=== PATIENT | female | born 1960 | race Caucasian/White ===

== ENCOUNTER 2016-07-16 13:53 | Inpatient (IN) | payer OTHER ==
[2016-07-16] MEDS ORDERED: MAGNESIUM SULFATE-D5W PMX 1 GM in DEXTROSE/WATER 1 100ML.BAG IVPB STA (14:51)
[2016-07-16] MEDS ORDERED: IPRATROPIUM-ALBUTEROL 3 ML NEB INHALATION STA (14:51)
[2016-07-16] MEDS ORDERED: SODIUM CHLORIDE 0.9% 1,000 ML IV STA (14:51)
--- NOTE | 2016-07-16 14:55 | ED ---
SOB HPI - General Chief Complaint: Shortness of Breath Stated Complaint: KRISTA Time Seen by Provider: 07/16/16 14:45 Source: patient, family, RN notes reviewed Mode of arrival: wheelchair Limitations: no limitations - History of Present Illness Initial Comments: This is a 55-year-old female with a history of COPD who is still smoking though she states she is trying to stop who has had difficulty with breathing for well over a week with cough with green phlegm fevers chills and sweats. She was seen in the outpatient clinic today and told come here for evaluation. She was told she probably will be admitted she does states she was given a shot of antibiotics and steroids prior to her discharge from the clinic. She denies any chest pain is no other complaints at this time. MD Complaint: shortness of breath, cough - Related Data Home Medications Medication Instructions Recorded Confirmed Albuterol Nebulized [Ventolin 2.5 mg INHALATION RT-Q6H PRN 09/15/14 07/16/16 Nebulized] Budesonide/Formoterol Fumarate 2 puff INHALATION RT-BID PRN 09/15/14 07/16/16 [Symbicort 80-4.5 Mcg Inhaler] Calcium Carb-Vit D 500Mg-200Un 1 tab PO DAILY 09/15/14 07/16/16 [Oscal 500+D] Cholecalciferol [Vitamin D3] 2,000 unit PO DAILY 09/15/14 07/16/16 Ezetimibe/Simvastatin [Vytorin 1 tab PO HS 09/15/14 07/16/16 10-10 mg Tablet] HYDROcodone/APAP 7.5-325MG [[place] 1 tab PO Q4H PRN 09/15/14 07/16/16 7.5-325] Multivitamins, Thera [Multivitamin] 1 tab PO DAILY@1200 09/15/14 07/16/16 Venlafaxine HCl [Effexor] 150 mg PO BID 09/15/14 07/16/16 Butalb/Acetaminophen/Caffeine 1 - 2 cap PO Q4HR PRN 07/19/15 07/16/16 [Fioricet 50-300-40 mg Capsule] Topiramate [Topamax] 50 mg PO BID 07/19/15 07/16/16 Albuterol Inhaler [Ventolin Hfa 1 - 2 puff INHALATION RT-Q6H PRN 10/21/15 Inhaler] Dicyclomine [Bentyl] 20 mg PO QID PRN 10/21/15 07/16/16 Allergies Allergy/AdvReac Type Severity Reaction Status Date / Time No Known Allergies Allergy Verified 07/16/16 15:09 Review of Systems ROS Statement: Those systems with pertinent positive or pertinent negative responses have been documented in the HPI. ROS Other: All systems not noted in ROS Statement are negative. Past Medical History Past Medical History: Asthma, COPD, Hyperlipidemia Additional Past Medical History / Comment(s): migraines, colon cancer, depression History of Any Multi-Drug Resistant Organisms: None Reported Past Surgical History: Appendectomy, Bowel Resection, Cholecystectomy, Hernia Repair, Tonsillectomy Additional Past Surgical History / Comment(s): re-hernia repair Past Psychological History: Anxiety, Depression Smoking Status: Current every day smoker Past Alcohol Use History: Rare Past Drug Use History: None Reported - Past Family History Mother Family Medical History: No Reported History Father Family Medical History: COPD, Coronary Artery Disease (CAD) General Exam - General Exam Comments Initial Comments: This is a well-developed well-nourished awake alert oriented 3 female Limitations: no limitations General appearance: alert, in no apparent distress Head exam: Present: atraumatic, normocephalic, normal inspection Eye exam: Present: normal appearance, PERRL, EOMI. Absent: scleral icterus, conjunctival injection, periorbital swelling ENT exam: Present: mucous membranes dry Neck exam: Present: normal inspection. Absent: tenderness, meningismus, lymphadenopathy Respiratory exam: Present: respiratory distress, wheezes, accessory muscle use, prolonged expiratory. Absent: rales, rhonchi, stridor Cardiovascular Exam: Present: normal rhythm, tachycardia, normal heart sounds. Absent: systolic murmur, diastolic murmur, rubs, gallop, clicks GI/Abdominal exam: Present: soft, normal bowel sounds. Absent: distended, tenderness, guarding, rebound, rigid Extremities exam: Present: normal inspection, full ROM, normal capillary refill. Absent: tenderness, pedal edema, joint swelling, calf tenderness Back exam: Present: normal inspection Neurological exam: Present: alert, oriented X3, CN II-XII intact Psychiatric exam: Present: normal affect, normal mood Skin exam: Present: warm, dry, intact, normal color. Absent: rash Course Vital Signs 07/16/16 07/16/16 07/16/16 14:34 15:24 15:35 Temperature 99 F Pulse Rate 111 H 114 H 100 Respiratory 22 Rate Blood Pressure 119/73 O2 Sat by Pulse 92 L Oximetry - Reevaluation(s) Reevaluation #1: 07/16/16 16:39 The patient did not get much improvement from the initial treatment. Medical Decision Making - Medical Decision Making Reevaluation patient reveals still marked dyspnea with diffuse wheezing and some accessory muscle use. I did discuss findings her family she will be admitted for inpatient treatment of COPD exacerbation with bronchitis. - Lab Data Result diagrams: 07/16/16 15:20 07/16/16 15:20 Lab Results 07/16/16 07/16/16 07/16/16 Range/Units 15:20 15:20 15:20 WBC 8.8 (3.8-10.6) k/uL RBC 4.86 (3.80-5.40) m/uL Hgb 14.1 (11.4-16.0) gm/dL Hct 42.6 (34.0-46.0) % MCV 87.7 (80.0-100.0) fL MCH 29.1 (25.0-35.0) pg MCHC 33.2 (31.0-37.0) g/dL RDW 13.3 (11.5-15.5) % Plt Count 282 (150-450) k/uL Neutrophils % 66 % Lymphocytes % 21 % Monocytes % 9 % Eosinophils % 1 % Basophils % 1 % Neutrophils # 5.8 (1.3-7.7) k/uL Lymphocytes # 1.9 (1.0-4.8) k/uL Monocytes # 0.8 (0-1.0) k/uL Eosinophils # 0.1 (0-0.7) k/uL Basophils # 0.0 (0-0.2) k/uL PT (9.0-12.0) sec INR (<1.1) APTT (22.0-30.0) sec D-Dimer (<0.60) mg/L FEU Sodium 141 (137-145) mmol/L Potassium 4.1 (3.5-5.1) mmol/L Chloride 101 (98-107) mmol/L Carbon Dioxide 27 (22-30) mmol/L Anion Gap 13 mmol/L BUN 10 (7-17) mg/dL Creatinine 0.74 (0.52-1.04) mg/dL Est GFR (MDRD) Af Amer >60 (>60 ml/min/1.73 sqM) Est GFR (MDRD) Non-Af >60 (>60 ml/min/1.73 sqM) Glucose 124 H (74-99) mg/dL Calcium 9.3 (8.4-10.2) mg/dL Magnesium 2.0 (1.6-2.3) mg/dL Total Bilirubin 0.4 (0.2-1.3) mg/dL AST 24 (14-36) U/L ALT 39 (9-52) U/L Alkaline Phosphatase 85 (38-126) U/L Total Creatine Kinase 58 (30-135) U/L CK-MB (CK-2) 0.9 (0.0-2.4) ng/mL CK-MB (CK-2) Rel Index 1.6 Troponin I <0.012 (0.000-0.034) ng/mL NT-Pro-B Natriuret Pep pg/mL Total Protein 7.0 (6.3-8.2) g/dL Albumin 4.0 (3.5-5.0) g/dL 07/16/16 07/16/16 Range/Units 15:20 15:20 WBC (3.8-10.6) k/uL RBC (3.80-5.40) m/uL Hgb (11.4-16.0) gm/dL Hct (34.0-46.0) % MCV (80.0-100.0) fL MCH (25.0-35.0) pg MCHC (31.0-37.0) g/dL RDW (11.5-15.5) % Plt Count (150-450) k/uL Neutrophils % % Lymphocytes % % Monocytes % % Eosinophils % % Basophils % % Neutrophils # (1.3-7.7) k/uL Lymphocytes # (1.0-4.8) k/uL Monocytes # (0-1.0) k/uL Eosinophils # (0-0.7) k/uL Basophils # (0-0.2) k/uL PT 10.1 (9.0-12.0) sec INR 1.0 (<1.1) APTT 25.4 (22.0-30.0) sec D-Dimer 0.75 H (<0.60) mg/L FEU Sodium (137-145) mmol/L Potassium (3.5-5.1) mmol/L Chloride (98-107) mmol/L Carbon Dioxide (22-30) mmol/L Anion Gap mmol/L BUN (7-17) mg/dL Creatinine (0.52-1.04) mg/dL Est GFR (MDRD) Af Amer (>60 ml/min/1.73 sqM) Est GFR (MDRD) Non-Af (>60 ml/min/1.73 sqM) Glucose (74-99) mg/dL Calcium (8.4-10.2) mg/dL Magnesium (1.6-2.3) mg/dL Total Bilirubin (0.2-1.3) mg/dL AST (14-36) U/L ALT (9-52) U/L Alkaline Phosphatase (38-126) U/L Total Creatine Kinase (30-135) U/L CK-MB (CK-2) (0.0-2.4) ng/mL CK-MB (CK-2) Rel Index Troponin I (0.000-0.034) ng/mL NT-Pro-B Natriuret Pep 51 pg/mL Total Protein (6.3-8.2) g/dL Albumin (3.5-5.0) g/dL - EKG Data -: EKG Interpreted by Wy EKG shows normal: sinus rhythm (Sinus rhythm with a rate of 107 ND interval of 170 QRS duration 106 DT says QTC of 340/464 evidence a left exodeviation poor R- wave progression no acute ST-T wave changes.) - Radiology Data Radiology results: report reviewed (X-rays are nonspecific no acute evidence of infiltrate.), image reviewed Critical Care Time Critical Care Time: Yes Critical Care Time: 31 minutes of critical care time which includes initial assessment with history physical lab and x-rays evaluation of labs and x-rays. Evaluation the patient to responsive therapy. Discussion with the family discussion with the admitting physician and admission orders and documentation of the above. Disposition Clinical Impression: Acute exacerbation of chronic obstructive airways disease, Adult respiratory distress syndrome, Bronchitis Disposition: ADMITTED IP TO THIS HOSP Condition: Stable
[2016-07-16 15:38] LABS: Basophils % (A) 1 %; CH 29.3; CHCM 33.6; Eosinophils # (A) 0.1 k/uL (0-0.7); Eosinophils % (A) 1 %; HCT 42.6 % (34.0-46.0); HDW 2.76; HGB 14.1 gm/dL (11.4-16.0); Luc # (Auto) 0.18; Luc % (Auto) 2; Lymphocytes # (A) 1.9 k/uL (1.0-4.8); Lymphocytes % (A) 21 %; MCH 29.1 pg (25.0-35.0); MCHC 33.2 g/dL (31.0-37.0); MCV 87.7 fL (80.0-100.0); Mean Platelet Volume 7.6; Monocytes # (A) 0.8 k/uL (0-1.0); Monocytes % (A) 9 %; Neutrophils # (A) 5.8 k/uL (1.3-7.7); Neutrophils % (A) 66 %; RBC 4.86 m/uL (3.80-5.40); RDW 13.3 % (11.5-15.5); WBC 8.8 k/uL (3.8-10.6); WBC (Perox) 8.93
[2016-07-16 15:48] LABS: ALT 39 U/L (9-52); AST 24 U/L (14-36); Alkaline Phosphatase 85 U/L (38-126); Anion Gap 13 mmol/L; Blood Urea Nitrogen 10 mg/dL (7-17); Calcium 9.3 mg/dL (8.4-10.2); Carbon Dioxide 27 mmol/L (22-30); Chloride 101 mmol/L (98-107); Glucose 124 mg/dL (74-99); Non-African American GFR(MDRD) >60 (>60 ml/min/1.73 sqM); Potassium 4.1 mmol/L (3.5-5.1); Sodium 141 mmol/L (137-145); Total Bilirubin 0.4 mg/dL (0.2-1.3)
[2016-07-16 15:51] LABS: Partial Thromboplastin Time 25.4 sec (22.0-30.0); Prothrombin Time 10.1 sec (9.0-12.0)
[2016-07-16 15:52] LABS: Creatine Kinase 58 U/L (30-135)
[2016-07-16 16:04] LABS: Creatine Kinase MB 0.9 ng/mL (0.0-2.4); Troponin I <0.012 ng/mL (0.000-0.034)
--- NOTE | 2016-07-16 16:11 | XR ---
EXAMINATION TYPE: XR chest 2V DATE OF EXAM: 07/16/2016 4:04 PM COMPARISON: NONE INDICATION: Difficulty breathing COPD TECHNIQUE: Frontal and lateral views of the chest are obtained. FINDINGS: The heart size is normal. The pulmonary vasculature is normal. The lungs are clear. IMPRESSION: 1. No acute pulmonary process.
[2016-07-16] MEDS ORDERED: DICYCLOMINE 20 MG TAB PO PRN (16:45)
[2016-07-16] MEDS ORDERED: NICOTINE 14MG/24HR PATCH TRANSDERM STA (16:45)
[2016-07-16] MEDS: HYDROcodone/APAP 7.5-325MG 1 EACH TAB PO PRN ×2 (16:59→21:04)
[2016-07-16] MEDS: methylPREDNISolone SOD SUCCI 125 MG/2 ML VIAL IV SCH ×2 (18:48→23:24)
[2016-07-16] MEDS: SODIUM CHLORIDE 0.9% 1,000 ML IV SCH (18:48)
[2016-07-16] MEDS: IPRATROPIUM-ALBUTEROL 3 ML NEB INHALATION SCH (20:00)
[2016-07-16] MEDS ORDERED: TOPIRAMATE 25 MG TAB PO PRN (20:29)
[2016-07-16] MEDS ORDERED: TOPIRAMATE 25 MG TAB PO SCH (21:00)
[2016-07-16] MEDS: VENLAFAXINE HCL ER 150 MG CAP PO SCH (21:04)
[2016-07-16] MEDS: ATORVASTATIN 10 MG TAB PO SCH (21:05)
[2016-07-16] MEDS: EZETIMIBE 10 MG TAB PO SCH (21:05)
[2016-07-16] MEDS: ALPRAZolam 0.25 MG TAB PO PRN (23:25)
[2016-07-17] MEDS ORDERED: ONDANSETRON 4 MG/2 ML VIAL IVP PRN (01:58)
[2016-07-17] MEDS: IPRATROPIUM-ALBUTEROL 3 ML NEB INHALATION SCH ×7 (03:18→23:42)
[2016-07-17] MEDS ORDERED: BUTALB/APAP/CAFF 50-325-40MG TAB PO PRN (05:47)
[2016-07-17] MEDS: methylPREDNISolone SOD SUCCI 125 MG/2 ML VIAL IV SCH ×4 (05:54→23:48)
[2016-07-17] MEDS: SODIUM CHLORIDE 0.9% 1,000 ML IV SCH ×3 (05:57→22:45)
[2016-07-17] MEDS: BUTALB/APAP/CAFF 50-325-40MG TAB PO PRN (05:59)
[2016-07-17 07:45] LABS: Glucose,Whole Blood 216 mg/dL (75-99)
[2016-07-17] MEDS: VENLAFAXINE HCL ER 150 MG CAP PO SCH ×2 (08:15→20:15)
[2016-07-17] MEDS: INSULIN LISPRO (humaLOG) 300 UNIT/3 ML VIAL SQ SCH ×4 (08:15→21:07)
[2016-07-17] MEDS: LEVOFLOXACIN 500 MG TAB PO SCH (08:15)
[2016-07-17] MEDS: HYDROcodone/APAP 7.5-325MG 1 EACH TAB PO PRN ×3 (08:20→19:41)
[2016-07-17] MEDS: CHOLECALCIFEROL 1,000 UNIT TAB PO SCH (09:43)
[2016-07-17] MEDS: CALCIUM CARB-VIT D 500MG-200UN 1 EACH TAB PO SCH (09:43)
[2016-07-17] MEDS: NICOTINE 14MG/24HR PATCH TRANSDERM SCH (11:05)
[2016-07-17] MEDS: ENOXAPARIN 40 MG/0.4 ML SYRINGE SQ SCH (11:05)
[2016-07-17] MEDS: MULTIVITAMINS, THERA 1 EACH TAB PO SCH (11:06)
[2016-07-17 11:47] LABS: Glucose,Whole Blood 330 mg/dL (75-99)
[2016-07-17 12:11] LABS: Hemoglobin A1C 6.2 % (4.2-6.1)
[2016-07-17] MEDS: NICOTINE POLACRILEX 2 MG GUM BUCCAL SCH ×4 (13:16→23:48)
--- NOTE | 2016-07-17 13:35 | HP ---
DATE OF ADMISSION: 07/16/2016 PRESENTING COMPLAINT: Short of breath, wheezing. HISTORY OF PRESENTING COMPLAINT: A 55-year-old patient of Dr. Luque. Patient's chronic stable medical conditions include hyperlipidemia, depression. Patient has a known history of COPD. The patient continues to smoke. The patient about 3 weeks ago [address] to Dr[address] Luque for respiratory symptoms including cough, sputum, short of breath, wheezing. Given antibiotics, steroids. Got a shade better, but symptoms continued to get worse. Patient still got quite a bit of cough, shortness of breath, wheezing, yellow phlegm, fever, decreased appetite, run down, quite a bit short of breath, admitted for the same having failed outpatient treatment. REVIEW OF SYSTEMS: CONSTITUTIONAL: Weak and tired. HEENT: As above. RESPIRATORY: As above. CARDIOVASCULAR: None. GASTROINTESTINAL: None. GENITOURINARY: None. MUSCULOSKELETAL: None. DERMATOLOGICAL: None. HEMATOLOGIC: None. LYMPHATIC: None. PSYCHIATRY: Anxiety. NEUROLOGICAL: None. GASTROINTESTINAL: The patient also got abdominal mesh. Past medical history of COPD, hyperlipidemia, migraine, colon cancer, depression. PAST SURGICAL HISTORY: Appendectomy, bowel resection, cholecystectomy, hernia repair, tonsillectomy, hernia repair with a mesh for abdominal wall hernia. SOCIAL HISTORY: The patient still smokes about a half a pack a day. Lives with daughter. FAMILY HISTORY: Reviewed, noncontributory to presentation. HOME MEDICATIONS: 1. Xanax, 0.25 p.o. q.i.d. p.r.n. 2. Effexor XR 150 mg p.o. b.i.d. 3. Topamax 50 mg p.o. b.i.d. p.r.n. 4. Multivitamin 1 tablet p.o. daily at noon. 5. [place] 7.5 one tablet q.4 p.r.n. 6. Vytorin 10/10 one tablet p.o. q.h.s. 7. Vitamin D3, 2000 units p.o. daily. 8. Os-Fantasma with vitamin D 1 tablet p.o. daily. 9. Fioricet 1 to 2 capsules q.4 p.r.n. 10. Symbicort 80/4.5 two puffs b.i.d. p.r.n. 11. Ventolin 2.5nebulized q.6 p.r.n. 12. Albuterol HFA 1 to 2 q.6 p.r.n. ALLERGIES: None. On examination, temperature 99, pulse 111, respiration 22, blood pressure 119/73, pulse ox 92% on room air. GENERAL APPEARANCE: Well built, BMI of 35.1, sitting up, short of breath. EYES: Pupils equal. Conjunctivae normal. HEENT: External appearance of nose and ears normal. Oral cavity normal. NECK: JVD not raised. Mass not palpable. RESPIRATORY: Effort increased. LUNGS: Diminished breath sounds, ( ) expiration and wheezing. CARDIOVASCULAR: First and second sounds normal. No edema. ABDOMEN: Distended, soft. Liver and spleen not palpable. LYMPHATIC: No lymph nodes palpable in the neck and axillae. PSYCHIATRY: Alert and oriented x3. Mood and affect anxious appearing. NEUROLOGICAL: Pupils equal. Cranial nerves grossly intact. Power and sensation grossly intact. INVESTIGATIONS: White count 8.8, hemoglobin 14.1. Potassium 4.1. BUN and creatinine normal. Chest x-ray nil acute. ASSESSMENT: 1. Acute severe chronic obstructive pulmonary disease exacerbation in a current smoker along with acute tracheobronchitis. 2. Obesity, body mass index 35.1. 3. Chronic nicotine dependence in an active cigarette smoker. 4. Anxiety and depression, not otherwise specified. PLAN: Patient counseled extensively against smoking, put her on nicotine patch and nicotine gum. Nebulized bronchodilators, IV steroids and also add oral Levaquin. Patient will ( ) hospital for 48 hours.
[2016-07-17 17:14] LABS: Glucose,Whole Blood 164 mg/dL (75-99)
--- NOTE | 2016-07-17 18:34 | P.CNPUL ---
History of Present Illness Consult date: 07/17/16 Reason for consult: COPD History of present illness: 55-year-old female patient with known history of COPD maintained on Tudorza 400 g on admission twice a day and Symbicort on outpatient basis. Her disease estimated to be moderately severe in nature. The patient is still smoking cigarettes and she has unable to quit despite previous interventions at home. The patient came yesterday through the MRSA problem having increased shortness of breath. Apparently her condition has been gradually getting worse over the past 1 week. She started off having symptoms of URI and following that she started having increased cough chest congestion wheezing. Her cough is very vigorous and repeated. Unable to bring up much sputum. No hemoptysis. No pleurisy. She has bronchospastic and wheezy and short of breath even at rest and sometimes while doing minimal amount of activity. No change in mental status. No pleurisy. No angina. No swelling in lower extremities. No other complaints otherwise. The patient is currently being treated as an inpatient with a combination of local that the steroids and antibiotics. The chest x-ray shows no acute abnormalities and I do not appreciate any pneumonic process. Review of Systems Further review of system was done and the positive findings are almost above history of present illness Past Medical History Past Medical History: COPD, Hyperlipidemia Additional Past Medical History / Comment(s): COPD, migraines, colon cancer, depression History of Any Multi-Drug Resistant Organisms: None Reported Past Surgical History: Appendectomy, Bowel Resection, Cholecystectomy, Hernia Repair, Tonsillectomy Additional Past Surgical History / Comment(s): re-hernia repair Past Anesthesia/Blood Transfusion Reactions: No Reported Reaction Additional Past Anesthesia/Blood Transfusion Reaction / Comment(s): spinal anesthesia Past Psychological History: Anxiety, Depression Smoking Status: Current every day smoker Past Alcohol Use History: Rare Past Drug Use History: None Reported - Past Family History Mother Family Medical History: No Reported History Father Family Medical History: COPD, Coronary Artery Disease (CAD) Medications and Allergies Home Medications Medication Instructions Recorded Confirmed Type Albuterol Nebulized [Ventolin 2.5 mg INHALATION RT-Q6H PRN 09/15/14 07/16/16 History Nebulized] Budesonide/Formoterol Fumarate 2 puff INHALATION RT-BID PRN 09/15/14 07/16/16 History [Symbicort 80-4.5 Mcg Inhaler] Calcium Carb-Vit D 500Mg-200Un 1 tab PO DAILY 09/15/14 07/16/16 History [Oscal 500+D] Cholecalciferol [Vitamin D3] 2,000 unit PO DAILY 09/15/14 07/16/16 History Ezetimibe/Simvastatin [Vytorin 1 tab PO HS 09/15/14 07/16/16 History 10-10 mg Tablet] HYDROcodone/APAP 7.5-325MG [[place] 1 tab PO Q4H PRN 09/15/14 07/16/16 History 7.5-325] Multivitamins, Thera [Multivitamin] 1 tab PO DAILY@1200 09/15/14 07/16/16 History Butalb/Acetaminophen/Caffeine 1 - 2 cap PO Q4HR PRN 07/19/15 07/16/16 History [Fioricet 50-300-40 mg Capsule] Topiramate [Topamax] 50 mg PO BID PRN 07/19/15 07/16/16 History Albuterol Inhaler [Ventolin Hfa 1 - 2 puff INHALATION RT-Q6H PRN 10/21/15 History Inhaler] ALPRAZolam [Xanax] 0.25 mg PO QID PRN 07/16/16 07/16/16 History Venlafaxine HCl [Effexor XR] 150 mg PO BID 07/16/16 07/16/16 History Allergies Allergy/AdvReac Type Severity Reaction Status Date / Time No Known Allergies Allergy Verified 07/16/16 15:09 Physical Exam Vitals: Vital Signs Temp Pulse Pulse Pulse Resp BP BP 07/17/16 16:29 90 07/17/16 16:13 82 07/17/16 15:00 97.9 F 81 20 107/68 07/17/16 11:44 85 07/17/16 11:32 85 07/17/16 08:05 85 07/17/16 07:55 85 07/17/16 07:00 96.7 F L 77 20 96/60 07/17/16 03:34 84 07/17/16 03:30 104/62 07/17/16 03:18 84 07/17/16 00:56 94/52 07/17/16 00:08 76 07/17/16 00:00 80 07/16/16 23:00 97.0 F L 80 16 94/57 07/16/16 20:07 84 07/16/16 19:50 84 Pulse Ox 07/17/16 16:29 07/17/16 16:13 07/17/16 15:00 92 L 07/17/16 11:44 07/17/16 11:32 07/17/16 08:05 07/17/16 07:55 93 L 07/17/16 07:00 91 L 07/17/16 03:34 07/17/16 03:30 07/17/16 03:18 07/17/16 00:56 07/17/16 00:08 07/17/16 00:00 07/16/16 23:00 97 07/16/16 20:07 07/16/16 19:50 Intake and Output 07/17/16 07/17/16 07/17/16 06:59 14:59 22:59 Intake Total 480 360 Balance 480 360 Intake: Oral 480 360 Other: Voiding Method Toilet # Voids 1 3 Head exam was generally normal. There was no scleral icterus or corneal arcus. Mucous membranes were moist. My normal neck lungs sounds are diminished and there is diffuse extremity wheezes throughout the lung tovar bilaterally. There is prolongation of the expiratory phase of breathing.Cardiac exam revealed the PMI to be normally situated and sized. The rhythm was regular and no extrasystoles were noted during several minutes of auscultation. The first and second heart sounds were normal and physiologic splitting of the second heart sound was noted. There were no murmurs, rubs, clicks, or gallops.Abdominal exam revealed normal bowel sounds. The abdomen was soft, non- tender, and without masses, organomegaly, or appreciable enlargement of the abdominal aorta.Examination of the extremities revealed easily palpable radial, femoral and pedal pulses. There was no cyanosis, clubbing or edema. Results - Laboratory Findings CBC and BMP: 07/16/16 15:20 07/16/16 15:20 PT/INR, D-dimer PT 10.1 sec (9.0-12.0) 07/16/16 15:20 INR 1.0 (<1.1) 07/16/16 15:20 D-Dimer 0.75 mg/L FEU (<0.60) H 07/16/16 15:20 Abnormal lab findings: Abnormal Labs 07/17/16 07/17/16 07/17/16 07:16 11:38 17:10 POC Glucose (mg/dL) 216 H 330 H 164 H - Diagnostic Findings Chest x-ray: image reviewed Assessment and Plan Plan: Assessment 1 acute COPD exacerbation with secondary shortness of breath 2 nicotine addiction/smoking 3 obesity 4 depression 5 hyperlipidemia 6 remote history of colon cancer Plan We'll put the patient on albuterol and Atrovent about treatments 4 times a day [id number]. We'll put the patient IV Solu Medrol 60 every 6 hours. We' ll cover the patient empiric antibiotic coverage with Levaquin. Nicotine patch for symptoms of withdrawal. Robitussin-DM for cough. Smoking cessation counseling was done. We'll continue to follow.
[2016-07-17] MEDS: SYMBICORT 80-4.5 MCG INHALER INHALATION SCH (19:05)
[2016-07-17] MEDS: ATORVASTATIN 10 MG TAB PO SCH (20:15)
[2016-07-17] MEDS: EZETIMIBE 10 MG TAB PO SCH (20:15)
[2016-07-17] MEDS ORDERED: INFLUENZA VACCINE (3YR+) 60 MCG/0.5 ML SYRINGE IM ONE (20:39)
[2016-07-17 21:03] LABS: Glucose,Whole Blood 202 mg/dL (75-99)
[2016-07-17] MEDS: ALPRAZolam 0.25 MG TAB PO PRN (22:10)
[2016-07-18] MEDS: NICOTINE POLACRILEX 2 MG GUM BUCCAL SCH ×7 (00:03→23:40)
[2016-07-18] MEDS: IPRATROPIUM-ALBUTEROL 3 ML NEB INHALATION SCH ×6 (04:22→23:31)
[2016-07-18] MEDS: methylPREDNISolone SOD SUCCI 125 MG/2 ML VIAL IV SCH ×3 (05:33→17:02)
[2016-07-18 07:02] LABS: Glucose,Whole Blood 157 mg/dL (75-99)
[2016-07-18] MEDS: VENLAFAXINE HCL ER 150 MG CAP PO SCH ×2 (07:57→20:30)
[2016-07-18] MEDS: NICOTINE 14MG/24HR PATCH TRANSDERM SCH (07:57)
[2016-07-18] MEDS: INSULIN LISPRO (humaLOG) 300 UNIT/3 ML VIAL SQ SCH ×4 (07:57→20:30)
[2016-07-18] MEDS: CHOLECALCIFEROL 1,000 UNIT TAB PO SCH (07:57)
[2016-07-18] MEDS: SODIUM CHLORIDE 0.9% 1,000 ML IV SCH ×2 (07:57→11:01)
[2016-07-18] MEDS: CALCIUM CARB-VIT D 500MG-200UN 1 EACH TAB PO SCH (07:57)
[2016-07-18] MEDS: LEVOFLOXACIN 500 MG TAB PO SCH (07:57)
[2016-07-18] MEDS: HYDROcodone/APAP 7.5-325MG 1 EACH TAB PO PRN ×4 (08:00→23:40)
[2016-07-18] MEDS: ENOXAPARIN 40 MG/0.4 ML SYRINGE SQ SCH (08:29)
[2016-07-18] MEDS: SYMBICORT 80-4.5 MCG INHALER INHALATION SCH (09:26)
[2016-07-18] MEDS: MULTIVITAMINS, THERA 1 EACH TAB PO SCH (11:01)
[2016-07-18 12:07] LABS: Glucose,Whole Blood 160 mg/dL (75-99)
[2016-07-18] MEDS: guaiFENesin-DM 100-10MG/5ML 10 ML CUP PO PRN (14:33)
--- NOTE | 2016-07-18 16:38 | FL ---
EXAMINATION: Cervical and Thoracic Esophagram DATE OF EXAM: 07/18/2016 4:28 PM CLINICAL INDICATION: 55-year-old female sensation of food getting stuck in the upper chest for one mo nth. COMPARISON: None Total Fluoroscopy Time: 1.5 minutes. FINDINGS: The swallowing mechanism is normal and hypopharyngeal anatomy is preserved. The cervical and thoracic portions have a normal course and caliber. There is mild to moderate tertiary peristaltic contractions and blunting of the normal secondary stri pping waves. This results in prolonged pooling of contrast within the esophagus even in the upright p osition. The mucosa is normal and no persistent filling defect is encountered. There is a tiny sliding hiatal hernia. Gastroesophageal reflux could not be elicited during the cours e of the exam utilizing both Valsalva and positional maneuvers. IMPRESSION: 1. Prolonged pooling of contrast within the esophagus even when the patient is upright secondary to s ome disorganized peristalsis and blunting of the normal secondary stripping waves. Findings could ref lect early presbyesophagus. 2. No obstructing or other suspicious mucosal lesion. 3. Tiny sliding hiatal hernia.
--- NOTE | 2016-07-18 16:50 | P.PN ---
Subjective this is a very pleasant 55-year-old female patient who follows with Dr. Luque is her primary care physician. Carmencita follows in our office for severe chronic obstructive pulmonary disease. She has been maintained on Symbicort and 2 doors. She presented here on 07/16/2016. She had an acute found to have an acute exacerbation of her COPD. Unfortunate patient does continue to smoke.she is seen again today in follow-up. She is improved slightly today as compared to yesterday but still quite bronchospastic and wheezy. She is quite dyspneic on minimal exertion. She's been treated with combination of bronchodilators steroids and antibiotics. She is maintaining O2 saturations in the mid 90s on 2 L/m per nasal cannula. Currently afebrile. She did undergo appears well today which revealed prolonged pooling of contrast within the esophagus even when the patient is upright secondary to some disorganized peristalsis and blunting of the normal secondary stripping waves. Findings could reflect early presbyesophagus. Objective - Vital Signs Vital signs: Vital Signs Temp 97.1 F L 07/18/16 15:00 Pulse 94 07/18/16 16:28 Resp 18 07/18/16 15:00 BP 110/71 07/18/16 15:00 Pulse Ox 95 07/18/16 15:00 Intake & Output 07/17/16 07/18/16 07/18/16 18:59 06:59 18:59 Intake Total 840 1400 240 Balance 840 1400 240 Intake: Intake, IV Titration 1100 Amount Sodium Chloride 0.9% 1, 1100 000 ml @ 100 mls/hr IV . Q10H B[facility]SON Rx#:[id number] Oral 840 300 240 Other: Voiding Method Toilet Toilet Toilet # Voids 3 1 2 - Exam GENERAL EXAM: Alert, in no acute distress. HEAD: Normocephalic. EYES: Normal reaction of pupils, equal size. NOSE: Clear with pink turbinates. THROAT: No erythema or exudates. NECK: No masses, no JVD. CHEST: No chest wall deformity. LUNGS: Equal air entry with bilateral end expiratory wheeze. Diminished throughout. CVS: S1 and S2 normal with no audible mumurs, regular rhythm. ABDOMEN: No hepatosplenomegaly, normal bowel sounds, no guarding or rigidity. SPINE: No scoliosis or deformity SKIN: No rashes CENTRAL NERVOUS SYSTEM: No focal deficits, tone is normal in all 4 extremities. Extremities: There is no significant peripheral edema. No clubbing, no cyanosis. Peripheral pulses are intact. - Labs CBC & Chem 7: 07/16/16 15:20 07/16/16 15:20 Labs: Abnormal Lab Results - Last 24 Hours (Table) 07/17/16 07/17/16 07/18/16 Range/Units 17:10 20:59 07:00 POC Glucose (mg/dL) 164 H 202 H 157 H (75-99) mg/dL 07/18/16 Range/Units 12:05 POC Glucose (mg/dL) 160 H (75-99) mg/dL Assessment and Plan Plan: Impression: #1 Acute exacerbation of chronic obstructive pulmonary disease with secondary dyspnea. #2 Chronic and ongoing tobacco dependence. #3 Obesity. #4 Depression. #5 Hyperlipidemia. #6 Remote history of colon cancer. #7 Possible early presbyesophagus. Plan: The patient was seen and evaluated by Dr. Myles. She is still not quite back to her baseline. We'll continue with her DuoNeb inhalations every 4 hours. We'll add Brovana and Pulmicort inhalations twice a day. She remains on IV Cymetra 60 mg every 6 hours. She is on empiric antibiotics in the form of Levaquin. She continues with Robitussin-DM for cough as needed. She is again educated regarding the importance of complete smoking cessation. NicoDerm patch has been applied. We will increase her activity as tolerated. We'll continue to follow make further recommendations based on her clinical status.
[2016-07-18 17:07] LABS: Glucose,Whole Blood 128 mg/dL (75-99)
[2016-07-18] MEDS: methylPREDNISolone SOD SUCCI 40 MG/ML 1 ML VIAL IV SCH ×2 (17:25→23:40)
[2016-07-18] MEDS: THEOPHYLLINE 24 HOUR 200 MG CAP.ER.24H PO SCH (17:26)
--- NOTE | 2016-07-18 19:46 | PN ---
DATE OF SERVICE: 07/18/2016 PRESENTING COMPLAINT: Short of breath, wheezing. INTERVAL HISTORY: This patient presented with as a smoker with severe COPD exacerbation. Still wheezing. The patient also notices that sometimes would get stuck in the throat, especially solids she thinks and wants further testing. Patient is on nicotine supplements to keep her off smoking. Family at the bedside. Review of systems done for constitutional, cardiovascular, GI, pulmonary; relevant findings as above. Current medications include, IV Solu-Medrol, nebulized bronchodilator. On examination, temperature 97.1, pulse 84, respiration 18, blood pressure 110/71, pulse ox 95% on 2 liters. GENERAL APPEARANCE: Sitting up, wheezing. EYES: Pupils equal. Conjunctivae normal. NECK: JVD not raised. Mass not palpable. RESPIRATORY: Effort increased. LUNGS: Diminished breath sounds. Prolonged audible wheezing. CARDIOVASCULAR: First and second sounds normal. No edema. ABDOMEN: Soft, nontender. Liver and spleen not palpable. PSYCHIATRY: Alert and oriented times three. Mood and affect anxious appearing. Oral cavity no thrush noted. Accu-Cheks noted. ASSESSMENT: 1. Acute severe chronic obstructive pulmonary disease exacerbation in a smoker. 2. Acute tracheobronchitis, slow to respond. 3. Difficulty in swallowing, could be peristalsis problem. 4. Chronic nicotine dependence in an active cigarette smoker. 5. Anxiety, depression, not otherwise specified. PLAN: Patient is counseled yet again about smoking. We will order barium swallow and get gastroenterology opinion. Will add theophylline.
[2016-07-18] MEDS ORDERED: BUDESONIDE 0.5 MG/2 ML NEBU INHALATION SCH (20:00)
[2016-07-18] MEDS: BUDESONIDE 0.5 MG/2 ML NEBU INHALATION SCH (20:06)
[2016-07-18] MEDS: FORMOTEROL FUMARATE 20 MCG/2 ML NEBU INHALATION SCH (20:07)
[2016-07-18 20:26] LABS: Glucose,Whole Blood 248 mg/dL (75-99)
[2016-07-18] MEDS: EZETIMIBE 10 MG TAB PO SCH (20:30)
[2016-07-18] MEDS: ATORVASTATIN 10 MG TAB PO SCH (20:30)
[2016-07-18] MEDS: ALPRAZolam 0.25 MG TAB PO PRN (23:40)
[2016-07-19] MEDS ORDERED: MELATONIN 3 MG TABLET PO PRN (01:28)
[2016-07-19] MEDS: LORazepam 0.5 MG TAB PO PRN ×2 (02:09→21:23)
[2016-07-19] MEDS: NICOTINE POLACRILEX 2 MG GUM BUCCAL SCH ×6 (04:33→23:37)
[2016-07-19] MEDS: IPRATROPIUM-ALBUTEROL 3 ML NEB INHALATION SCH ×5 (04:46→20:19)
[2016-07-19 07:22] LABS: Glucose,Whole Blood 149 mg/dL (75-99)
[2016-07-19] MEDS: FORMOTEROL FUMARATE 20 MCG/2 ML NEBU INHALATION SCH ×2 (07:32→20:19)
[2016-07-19] MEDS: BUDESONIDE 0.5 MG/2 ML NEBU INHALATION SCH ×2 (07:32→20:19)
[2016-07-19] MEDS: NICOTINE 14MG/24HR PATCH TRANSDERM SCH (08:09)
[2016-07-19] MEDS: ALPRAZolam 0.25 MG TAB PO PRN (08:09)
[2016-07-19] MEDS: methylPREDNISolone SOD SUCCI 40 MG/ML 1 ML VIAL IV SCH ×3 (08:10→23:34)
[2016-07-19] MEDS: THEOPHYLLINE 24 HOUR 200 MG CAP.ER.24H PO SCH (08:10)
[2016-07-19] MEDS: ENOXAPARIN 40 MG/0.4 ML SYRINGE SQ SCH (08:10)
[2016-07-19] MEDS: CHOLECALCIFEROL 1,000 UNIT TAB PO SCH (08:11)
[2016-07-19] MEDS: CALCIUM CARB-VIT D 500MG-200UN 1 EACH TAB PO SCH (08:11)
[2016-07-19] MEDS: LEVOFLOXACIN 500 MG TAB PO SCH (08:11)
[2016-07-19] MEDS: INSULIN LISPRO (humaLOG) 300 UNIT/3 ML VIAL SQ SCH ×4 (08:11→21:23)
[2016-07-19] MEDS: VENLAFAXINE HCL ER 150 MG CAP PO SCH ×2 (08:12→21:23)
[2016-07-19] MEDS: HYDROcodone/APAP 7.5-325MG 1 EACH TAB PO PRN ×4 (08:17→21:24)
[2016-07-19 08:43] LABS: Basophils # (A) 0.1 k/uL (0-0.2); Basophils % (A) 0 %; CHCM 32.4; Eosinophils % (A) 0 %; HCT 39.1 % (34.0-46.0); HDW 2.71; HGB 12.4 gm/dL (11.4-16.0); Luc # (Auto) 0.14; Luc % (Auto) 1; Lymphocytes # (A) 2.1 k/uL (1.0-4.8); Lymphocytes % (A) 15 %; MCH 28.5 pg (25.0-35.0); MCHC 31.7 g/dL (31.0-37.0); MCV 89.9 fL (80.0-100.0); Mean Platelet Volume 7.7; Monocytes % (A) 7 %; Neutrophils # (A) 10.8 k/uL (1.3-7.7); Neutrophils % (A) 77 %; RBC 4.35 m/uL (3.80-5.40); RDW 13.5 % (11.5-15.5); WBC (Perox) 14.11
[2016-07-19 08:50] LABS: Anion Gap 8 mmol/L; Blood Urea Nitrogen 18 mg/dL (7-17); Carbon Dioxide 34 mmol/L (22-30); Chloride 100 mmol/L (98-107); Glucose 130 mg/dL (74-99); Non-African American GFR(MDRD) >60 (>60 ml/min/1.73 sqM); Sodium 142 mmol/L (137-145)
--- NOTE | 2016-07-19 11:00 | CONS ---
DATE OF CONSULTATION: 07/19/2016 REASON FOR CONSULTATION: Dysphagia. HISTORY OF PRESENT ILLNESS: The patient is a 55-year-old pleasant lady who was admitted to the hospital because of exacerbation of COPD. She presented with cough, worsening shortness of breath for 2 weeks prior to hospitalization. Lately her symptoms have been progressively getting worse and has become more purulent. She denies any chest pain. Since being in the hospital she has been complaining of dysphagia and hence, the patient had a barium esophagogram done, which showed evidence of presbyesophagus and hence we are consulted in regards to this issue. The patient states that she has been having intermittent dysphagia to solids for the last 2 months duration. She also has heartburn. She has occasional chest pain while she is eating, but she often has dysphagia with certain foods, mostly solids on an intermittent basis. She does not have any problems with liquids. She does complain of passive regurgitation. She has not been on acid reduction therapy on an outpatient basis. She denies any nausea, vomiting, or abdominal pain. PAST MEDICAL HISTORY: Significant for COPD, hyperlipidemia, chronic migraines, hypertension, anxiety, depression. PAST SURGICAL HISTORY: Colon cancer surgery, cholecystectomy, appendectomy, hernia repair, tonsillectomy. Medications at home include Ventolin, vitamin D3, Vytorin, [place], multivitamin, Topamax, Xanax, Effexor. SOCIAL HISTORY: Chronic smoker, quit recently. No alcohol use. FAMILY HISTORY: Unremarkable. REVIEW OF SYSTEMS: CARDIOPULMONARY: She does complain of coughing and shortness of breath, but no chest pain. GENITOURINARY: No dysuria or hematuria. MUSCULOSKELETAL: Complains of back pain. NEUROLOGY: Unremarkable. PSYCHIATRY: History of anxiety and depression. ENT/VISION: Unremarkable. CONSTITUTIONAL: No recent weight loss. No fevers, chills, night sweats. GI: As mentioned earlier. ENDOCRINE: Unremarkable. HEMATOLOGY: Unremarkable. On physical examination, she appears comfortable in no apparent distress. Vital signs are stable. Blood pressure is ( ), pulse rate 92, and afebrile. HEENT examination unremarkable. Conjunctivae pink. Sclerae anicteric. Oral cavity, no lesions. NECK: No JVD or lymph node enlargement. CHEST: Clear to auscultation. HEART: Regular rate and rhythm. ABDOMEN: Soft. Bowel sounds are positive. No organomegaly. EXTREMITIES: No pedal edema. SKIN: No rashes. NEURO: Alert and oriented x3. No focal deficits. Labs done at the time of admission to the hospital. Today, WBC 14, hemoglobin 12.4, platelets are normal. Basic metabolic panel showed a BUN of 18, creatinine 0.7. Barium esophagogram showed evidence of presbyesophagus, but no evidence of stricture. IMPRESSION: 1. Exacerbation of chronic obstructive pulmonary disease. 2. Intermittent dysphagia to solids for the last 2 months duration associated with heartburn and atypical chest pain. Barium esophagogram showed evidence of presbyesophagus but no obstructing lesions or other mucosal lesion identified. RECOMMENDATIONS: I had a lengthy discussion with the patient and reviewed the findings of the barium esophagogram that was done yesterday. I think at this time she may have a component of gastroesophageal reflux symptoms, causing some of heartburn and atypical chest pain and in addition to that she may have an esophageal motility problem that is causing the dysphagia. Overall, she has been able to maintain her nutrition except having intermittent choking episodes with certain foods. I recommended that we start her on Protonix 40 mg twice daily in the hope to improve the heartburn and hopefully this would resolve some of the dysphagia; however, if she continues to remain persistently symptomatic we can consider proceeding with an upper endoscopy on an outpatient basis. The plan was discussed with the patient. She is agreeable to it. Thank you for this consultation. Will follow her closely during her hospital stay.
[2016-07-19] MEDS: guaiFENesin-DM 100-10MG/5ML 10 ML CUP PO PRN (12:09)
[2016-07-19] MEDS: PANTOPRAZOLE 40 MG TABLET PO SCH ×2 (12:10→16:39)
[2016-07-19 12:11] LABS: Glucose,Whole Blood 119 mg/dL (75-99)
[2016-07-19] MEDS: MULTIVITAMINS, THERA 1 EACH TAB PO SCH (12:11)
--- NOTE | 2016-07-19 12:37 | P.PN ---
Subjective This is a very pleasant 55-year-old female patient who follows with Dr. Luque as her primary care physician. She also follows in our office for severe chronic obstructive pulmonary disease. She has been maintained on Symbicort and Tudorza. She presented here on 07/16/2016. She was found to have an acute exacerbation of her COPD. The patient does continue to smoke. Her chest x- ray revealed no acute pulmonary process. She did undergo appears well today which revealed prolonged pooling of contrast within the esophagus even when the patient is upright secondary to some disorganized peristalsis and blunting of the normal secondary stripping waves. Findings could reflect early presbyesophagus. She is seen again today in follow-up on 07/19/2016. She is awake and alert. She continues with a loose nonproductive cough. She is quite dyspneic on minimal exertion. She is still bronchospastic and wheezy. She is maintaining O2 saturations in the low 90s on 2 L/m per nasal cannula. She is afebrile. Minimal leukocytosis. Objective - Vital Signs Vital signs: Vital Signs Temp 96.6 F L 07/19/16 07:00 Pulse 80 07/19/16 11:20 Resp 22 07/19/16 07:00 BP 109/58 07/19/16 07:00 Pulse Ox 91 L 07/19/16 07:00 Intake & Output 07/18/16 07/19/16 07/19/16 18:59 06:59 18:59 Intake Total 240 475 480 Balance 240 475 480 Intake: Oral 240 475 480 Other: Voiding Method Toilet Toilet # Voids 2 1 - Exam GENERAL EXAM: Alert, in no acute distress. HEAD: Normocephalic. EYES: Normal reaction of pupils, equal size. NOSE: Clear with pink turbinates. THROAT: No erythema or exudates. NECK: No masses, no JVD. CHEST: No chest wall deformity. LUNGS: Equal air entry with bilateral end expiratory wheeze. Diminished throughout. CVS: S1 and S2 normal with no audible mumurs, regular rhythm. ABDOMEN: No hepatosplenomegaly, normal bowel sounds, no guarding or rigidity. SPINE: No scoliosis or deformity SKIN: No rashes CENTRAL NERVOUS SYSTEM: No focal deficits, tone is normal in all 4 extremities. Extremities: There is no significant peripheral edema. No clubbing, no cyanosis. Peripheral pulses are intact. - Labs CBC & Chem 7: 07/19/16 08:25 07/19/16 08:25 Labs: Abnormal Lab Results - Last 24 Hours (Table) 07/18/16 07/18/16 07/19/16 Range/Units 17:03 20:22 07:15 WBC (3.8-10.6) k/uL Neutrophils # (1.3-7.7) k/uL Carbon Dioxide (22-30) mmol/L BUN (7-17) mg/dL Glucose (74-99) mg/dL POC Glucose (mg/dL) 128 H 248 H 149 H (75-99) mg/dL 07/19/16 07/19/16 07/19/16 Range/Units 08:25 08:25 11:58 WBC 14.0 H (3.8-10.6) k/uL Neutrophils # 10.8 H (1.3-7.7) k/uL Carbon Dioxide 34 H (22-30) mmol/L BUN 18 H (7-17) mg/dL Glucose 130 H (74-99) mg/dL POC Glucose (mg/dL) 119 H (75-99) mg/dL Assessment and Plan Plan: Impression: #1 Acute exacerbation of chronic obstructive pulmonary disease with secondary dyspnea. No acute pulmonary process on chest x-ray. #2 Chronic and ongoing tobacco dependence. #3 Obesity. #4 Depression. #5 Hyperlipidemia. #6 Remote history of colon cancer. #7 Possible early presbyesophagus. Plan: The patient was seen and evaluated by Dr. Myles. She is not much improved today as compared to yesterday. We'll continue with her DuoNeb inhalations every 4 hours. We'll continue Brovana and Pulmicort inhalations twice a day. She remains on IV Solu-Medrol 60 mg every 6 hours. She is on empiric antibiotics in the form of Levaquin. She continues with Robitussin-DM for cough every 6 hours. She is again educated regarding the importance of complete smoking cessation. NicoDerm patch has been applied. We will increase her activity as tolerated. We'll continue to follow make further recommendations based on her clinical status.
[2016-07-19] MEDS: CHLORPHEN-HYDROcod 8-10mg/5ml 5 ML ORAL.SYRG PO SCH (16:40)
[2016-07-19 17:07] LABS: Glucose,Whole Blood 143 mg/dL (75-99)
[2016-07-19 21:13] LABS: Glucose,Whole Blood 207 mg/dL (75-99)
[2016-07-19] MEDS: ATORVASTATIN 10 MG TAB PO SCH (21:23)
[2016-07-19] MEDS: EZETIMIBE 10 MG TAB PO SCH (21:23)
[2016-07-20] MEDS: IPRATROPIUM-ALBUTEROL 3 ML NEB INHALATION SCH ×7 (03:21→19:34)
[2016-07-20] MEDS: NICOTINE POLACRILEX 2 MG GUM BUCCAL SCH ×6 (04:08→23:08)
--- NOTE | 2016-07-20 07:08 | PN ---
DATE OF SERVICE: 07/19/2016 PRESENTING COMPLAINT: Short of breath, wheezing. INTERVAL HISTORY: This is a patient who is a smoker, presented with severe COPD exacerbation. Yesterday I started the patient on theophyllines. Patient's breathing is actually much better and wheezing is quieting down. Review of systems done for constitutional, cardiovascular, GI, pulmonary; relevant findings as above. Current medications are reviewed and include IV Solu-Medrol and theophylline. On examination, temperature 96.6, pulse 88, respiration 20, blood pressure 109/69, pulse ox 91% on 2 liters. GENERAL APPEARANCE: Sitting up, no audible wheezing. EYES: Pupils equal, conjunctivae normal. NECK: JVD not raised. Mass not palpable. RESPIRATORY: Effort increased. LUNGS: Improved air entry. Decreased wheezing. CARDIOVASCULAR: First and second sounds normal. No edema. ABDOMEN: Soft, nontender. Liver and spleen not palpable. PSYCHIATRY: Alert and oriented x3. Mood and affect normal. INVESTIGATIONS: White count 14, hemoglobin 12.4. Potassium 4.0. Accu-Cheks are noted. ASSESSMENT: 1. Acute severe chronic obstructive pulmonary disease exacerbation in a smoker with clinical response. 2. Acute tracheobronchitis, improved. 3. Presbyesophagus as per barium swallow. 4. Chronic nicotine dependence in an active cigarette smoker. 5. Anxiety, depression, not otherwise specified. PLAN: Overall the patient is doing better. Care was discussed with the patient. Barium swallow results were discussed. GI consultation noted. Encouraged to be out of bed.
[2016-07-20] MEDS: BUDESONIDE 0.5 MG/2 ML NEBU INHALATION SCH ×2 (07:25→19:25)
[2016-07-20] MEDS: FORMOTEROL FUMARATE 20 MCG/2 ML NEBU INHALATION SCH ×2 (07:25→19:25)
[2016-07-20] MEDS: CHLORPHEN-HYDROcod 8-10mg/5ml 5 ML ORAL.SYRG PO SCH ×2 (07:33→17:34)
[2016-07-20] MEDS: NICOTINE 14MG/24HR PATCH TRANSDERM SCH (07:33)
[2016-07-20] MEDS: LEVOFLOXACIN 500 MG TAB PO SCH (07:34)
[2016-07-20] MEDS: PANTOPRAZOLE 40 MG TABLET PO SCH ×2 (07:34→17:34)
[2016-07-20] MEDS: VENLAFAXINE HCL ER 150 MG CAP PO SCH ×2 (07:34→21:20)
[2016-07-20] MEDS: THEOPHYLLINE 24 HOUR 200 MG CAP.ER.24H PO SCH (07:34)
[2016-07-20] MEDS: CHOLECALCIFEROL 1,000 UNIT TAB PO SCH (07:34)
[2016-07-20] MEDS: methylPREDNISolone SOD SUCCI 40 MG/ML 1 ML VIAL IV SCH (07:34)
[2016-07-20] MEDS: CALCIUM CARB-VIT D 500MG-200UN 1 EACH TAB PO SCH (07:34)
[2016-07-20] MEDS: HYDROcodone/APAP 7.5-325MG 1 EACH TAB PO PRN ×3 (07:35→22:14)
[2016-07-20] MEDS: ENOXAPARIN 40 MG/0.4 ML SYRINGE SQ SCH (07:35)
[2016-07-20] MEDS: INSULIN LISPRO (humaLOG) 300 UNIT/3 ML VIAL SQ SCH ×4 (07:35→21:21)
[2016-07-20 07:42] LABS: Glucose,Whole Blood 142 mg/dL (75-99)
[2016-07-20] MEDS: MULTIVITAMINS, THERA 1 EACH TAB PO SCH (11:09)
[2016-07-20 12:24] LABS: Glucose,Whole Blood 145 mg/dL (75-99)
--- NOTE | 2016-07-20 15:16 | P.PN ---
Subjective This is a very pleasant 55-year-old female patient who follows with Dr. Luque as her primary care physician. She also follows in our office for severe chronic obstructive pulmonary disease. She has been maintained on Symbicort and Tudorza. She presented here on 07/16/2016. She was found to have an acute exacerbation of her COPD. The patient does continue to smoke. Her chest x- ray revealed no acute pulmonary process. She did undergo appears well today which revealed prolonged pooling of contrast within the esophagus even when the patient is upright secondary to some disorganized peristalsis and blunting of the normal secondary stripping waves. Findings could reflect early presbyesophagus. She is seen again today in follow-up on 07/19/2016. She is awake and alert. She continues with a loose nonproductive cough. She is quite dyspneic on minimal exertion. She is still bronchospastic and wheezy. She is maintaining O2 saturations in the low 90s on 2 L/m per nasal cannula. She is afebrile. Minimal leukocytosis. On 07/20/2016 the patient is being seen in follow-up. The patient is doing better and less short of breath compared to yesterday. She is on an antacid medications. She is also on bronchodilators and systemic steroids. She is progressively improving and she has no specific complaints on today's evaluation. His COPD is gradually improving. Still smoking cessation counseling was again done. Objective - Vital Signs Vital signs: Vital Signs Temp 97.6 F 07/20/16 15:00 Pulse 69 07/20/16 15:00 Resp 20 07/20/16 15:00 BP 115/61 07/20/16 15:00 Pulse Ox 94 L 07/20/16 15:00 Intake & Output 07/19/16 07/20/16 07/20/16 18:59 06:59 18:59 Intake Total 480 600 360 Balance 480 600 360 Intake: Oral 480 600 360 Other: Voiding Method Toilet Toilet Toilet # Voids 1 1 2 - Exam Head exam was generally normal. There was no scleral icterus or corneal arcus. Mucous membranes were moist.Neck was supple and without jugular venous distension, thyromegaly, or carotid bruits. Carotids were easily palpable bilaterally. There was no adenopathy. Lung sounds are diminished bilaterally with scattered external wheezes throughout lung tovar.Cardiac exam revealed the PMI to be normally situated and sized. The rhythm was regular and no extrasystoles were noted during several minutes of auscultation. The first and second heart sounds were normal and physiologic splitting of the second heart sound was noted. There were no murmurs, rubs, clicks, or gallops.Abdominal exam revealed normal bowel sounds. The abdomen was soft, non-tender, and without masses, organomegaly, or appreciable enlargement of the abdominal aorta.Examination of the extremities revealed easily palpable radial, femoral and pedal pulses. There was no cyanosis, clubbing or edema. - Labs CBC & Chem 7: 07/19/16 08:25 07/19/16 08:25 Labs: Abnormal Lab Results - Last 24 Hours (Table) 07/19/16 07/19/16 07/20/16 Range/Units 17:03 21:08 07:12 POC Glucose (mg/dL) 143 H 207 H 142 H (75-99) mg/dL 07/20/16 Range/Units 12:19 POC Glucose (mg/dL) 145 H (75-99) mg/dL Assessment and Plan Plan: Assessment 1 acute COPD exacerbation with secondary shortness of breath, improving 2 nicotine addiction/smoking 3 obesity 4 depression 5 hyperlipidemia 6 remote history of colon cancer Plan Today same treatment. The patient is approximately recovery. We'll hopefully get better response with the next 24-48 hours. Smoking cessation counseling was again performed.
[2016-07-20] MEDS: predniSONE 20 MG TAB PO SCH (15:23)
[2016-07-20 17:20] LABS: Glucose,Whole Blood 143 mg/dL (75-99)
--- NOTE | 2016-07-20 19:25 | PN ---
DATE OF SERVICE: 07/20/2016 PRESENTING COMPLAINT: Short of breath, wheezing. INTERVAL HISTORY: Patient admitted with severe COPD exacerbation, ( ) feels a bit tired. Review of systems done for constitutional, cardiovascular, GI, pulmonary; relevant findings as above. Current medications are reviewed that include IV Solu-Medrol, nebulized bronchodilators. On examination, temperature 97.4, pulse 75, respiration 22, blood pressure 120/80, pulse ox 94% on 2 L. GENERAL APPEARANCE: Sitting up, not in distress. EYES: Pupils equal. Conjunctivae normal. NECK: JVD not raised. Respiratory effort increased. LUNGS: Improved air entry. CARDIOVASCULAR: First and second sounds normal. No edema. ABDOMEN: Soft, nontender. Liver and spleen not palpable. PSYCHIATRY: Alert and oriented x3. Mood and affect normal. INVESTIGATIONS: Accu-Cheks are noted. ASSESSMENT: 1. Acute severe chronic obstructive pulmonary disease exacerbation on presentation, a smoker with improvement. 2. Acute tracheobronchitis. 3. Presbyesophagus as per barium swallow. 4. Chronic nicotine dependence in an active cigarette smoker. 5. Anxiety, depression not otherwise specified. PLAN: Overall doing much better. Will switch her over to oral prednisone. Hopefully, patient can be discharged tomorrow.
[2016-07-20] MEDS ORDERED: IPRATROPIUM-ALBUTEROL 3 ML NEB INHALATION PRN (19:28)
[2016-07-20] MEDS: BUDESONIDE 1 MG/2 ML NEBU INHALATION SCH (19:34)
[2016-07-20] MEDS: ATORVASTATIN 10 MG TAB PO SCH (21:20)
[2016-07-20] MEDS: EZETIMIBE 10 MG TAB PO SCH (21:20)
[2016-07-20 21:38] LABS: Glucose,Whole Blood 301 mg/dL (75-99)
[2016-07-20] MEDS: LORazepam 0.5 MG TAB PO PRN (22:14)
[2016-07-20 22:26] LABS: Glucose,Whole Blood 348 mg/dL (75-99)
[2016-07-21] MEDS: NICOTINE POLACRILEX 2 MG GUM BUCCAL SCH ×6 (03:28→23:52)
[2016-07-21] MEDS: CHLORPHEN-HYDROcod 8-10mg/5ml 5 ML ORAL.SYRG PO SCH ×2 (06:39→17:30)
[2016-07-21 07:35] LABS: Glucose,Whole Blood 98 mg/dL (75-99)
[2016-07-21] MEDS: INSULIN LISPRO (humaLOG) 300 UNIT/3 ML VIAL SQ SCH ×4 (08:18→20:53)
[2016-07-21] MEDS: THEOPHYLLINE 24 HOUR 200 MG CAP.ER.24H PO SCH (08:19)
[2016-07-21] MEDS: NICOTINE 14MG/24HR PATCH TRANSDERM SCH (08:20)
[2016-07-21] MEDS: predniSONE 20 MG TAB PO SCH (08:20)
[2016-07-21] MEDS: PANTOPRAZOLE 40 MG TABLET PO SCH ×2 (08:20→17:30)
[2016-07-21] MEDS: VENLAFAXINE HCL ER 150 MG CAP PO SCH ×2 (08:20→20:53)
[2016-07-21] MEDS: LEVOFLOXACIN 500 MG TAB PO SCH (08:20)
[2016-07-21] MEDS: ENOXAPARIN 40 MG/0.4 ML SYRINGE SQ SCH (08:20)
[2016-07-21] MEDS: CALCIUM CARB-VIT D 500MG-200UN 1 EACH TAB PO SCH (08:20)
[2016-07-21] MEDS: CHOLECALCIFEROL 1,000 UNIT TAB PO SCH (08:20)
[2016-07-21] MEDS: BUDESONIDE 1 MG/2 ML NEBU INHALATION SCH ×2 (08:25→19:29)
[2016-07-21] MEDS: FORMOTEROL FUMARATE 20 MCG/2 ML NEBU INHALATION SCH ×2 (08:25→19:29)
[2016-07-21] MEDS: IPRATROPIUM-ALBUTEROL 3 ML NEB INHALATION SCH ×4 (08:25→19:29)
[2016-07-21] MEDS: HYDROcodone/APAP 7.5-325MG 1 EACH TAB PO PRN ×3 (08:31→23:00)
[2016-07-21 12:30] LABS: Glucose,Whole Blood 84 mg/dL (75-99)
[2016-07-21] MEDS: methylPREDNISolone SOD SUCCI 125 MG/2 ML VIAL IV SCH ×3 (12:54→23:00)
[2016-07-21] MEDS: MULTIVITAMINS, THERA 1 EACH TAB PO SCH (12:55)
--- NOTE | 2016-07-21 14:04 | PN ---
DATE OF SERVICE: 07/21/2016 Patient is a 55-year-old pleasant lady admitted to the hospital with exacerbation of COPD. While in the hospital, she has been complaining of intermittent dysphagia to solids and severe heartburn. She was started on Protonix 40 mg twice daily 2 days ago and she is feeling much better. She still has some heartburn but the dysphagia has also improved. Overall, she is feeling much better. She is also complaining of some wheezing and shortness of breath, but she is improving in regards to that also. On physical examination, she appears comfortable, in no apparent distress. Vitals signs are stable. Blood pressure is 132/86, pulse rate 68 and afebrile. HEENT examination unremarkable. Conjunctivae are pink. Sclerae nonicteric. Oral cavity no lesions. NECK: No JVD or lymph node enlargement. Chest was clear to auscultation. HEART: Regular rate and rhythm. Abdomen is soft. It was nontender, nondistended. Liver and spleen are not palpable. Bowel sounds are positive. No organomegaly. EXTREMITIES: No pedal edema. SKIN: No rashes. NEURO: She is alert and oriented x3. No focal deficits. IMPRESSION: 1. Dysphagia/gastroesophageal reflux disease, patient was started on Protonix 40 mg twice daily 2 days ago and her symptoms are significantly improved. She did have a barium esophagram that showed evidence of presbyesophagus. 2. Exacerbation of chronic obstructive pulmonary disease. RECOMMENDATION: She was advised to continue with Protonix 40 mg twice daily for a month and then will decrease it to once daily for her. She was advised to follow up in the office in a month following discharge from the hospital. No need for any endoscopic intervention at the present time. Thank you for this consultation.
--- NOTE | 2016-07-21 16:25 | P.PN ---
Subjective Principal diagnosis: Acute exacerbation of COPD This is a very pleasant 55-year-old female patient who follows with Dr. Luque as her primary care physician. She also follows in our office for severe chronic obstructive pulmonary disease. She has been maintained on Symbicort and Tudorza. She presented here on 07/16/2016. She was found to have an acute exacerbation of her COPD. The patient does continue to smoke. Her chest x- ray revealed no acute pulmonary process. She did undergo appears well today which revealed prolonged pooling of contrast within the esophagus even when the patient is upright secondary to some disorganized peristalsis and blunting of the normal secondary stripping waves. Findings could reflect early presbyesophagus. She is seen again today in follow-up on 07/19/2016. She is awake and alert. She continues with a loose nonproductive cough. She is quite dyspneic on minimal exertion. She is still bronchospastic and wheezy. She is maintaining O2 saturations in the low 90s on 2 L/m per nasal cannula. She is afebrile. Minimal leukocytosis. On 07/20/2016 the patient is being seen in follow-up. The patient is doing better and less short of breath compared to yesterday. She is on an antacid medications. She is also on bronchodilators and systemic steroids. She is progressively improving and she has no specific complaints on today's evaluation. His COPD is gradually improving. Still smoking cessation counseling was again done. On 07/21/2016, patient is feeling better overall, but she continues to cough and wheeze continues to have shortness of breath. Hence I switch her back on IV Solu-Medrol, and discontinued oral prednisone. She is not ready for discharge planning at this point. Patient remains bronchospastic and wheezy today. Objective - Vital Signs Vital signs: Vital Signs Temp 96.8 F L 07/21/16 07:00 Pulse 76 07/21/16 15:54 Resp 20 07/21/16 07:00 BP 120/71 07/21/16 07:00 Pulse Ox 97 07/21/16 07:00 Intake & Output 07/20/16 07/21/16 07/21/16 18:59 06:59 18:59 Intake Total 360 Balance 360 Intake: Oral 360 Other: Voiding Method Toilet Toilet # Voids 2 0 # Bowel Movements 0 - Exam GENERAL EXAM: Alert, in no acute distress. HEAD: Normocephalic. EYES: Normal reaction of pupils, equal size. NOSE: Clear with pink turbinates. THROAT: No erythema or exudates. NECK: No masses, no JVD. CHEST: No chest wall deformity. LUNGS: Equal air entry with bilateral end expiratory wheeze. Diminished throughout. CVS: S1 and S2 normal with no audible mumurs, regular rhythm. ABDOMEN: No hepatosplenomegaly, normal bowel sounds, no guarding or rigidity. SPINE: No scoliosis or deformity SKIN: No rashes CENTRAL NERVOUS SYSTEM: No focal deficits, tone is normal in all 4 extremities. Extremities: There is no significant peripheral edema. No clubbing, no cyanosis. Peripheral pulses are intact. - Labs CBC & Chem 7: 07/19/16 08:25 07/19/16 08:25 Labs: Abnormal Lab Results - Last 24 Hours (Table) 07/20/16 07/20/16 07/20/16 Range/Units 17:16 21:18 22:25 POC Glucose (mg/dL) 143 H 301 H 348 H (75-99) mg/dL Assessment and Plan Plan: #1 Acute exacerbation of chronic obstructive pulmonary disease with secondary dyspnea. No acute pulmonary process on chest x-ray. #2 Chronic and ongoing tobacco dependence. #3 Obesity. #4 Depression. #5 Hyperlipidemia. #6 Remote history of colon cancer. #7 Possible early presbyesophagus. Continue present bronchodilators, patient will be switched back to Solu-Medrol, not quite ready for discharge planning at this point. Time with Patient: Less than 30
[2016-07-21] MEDS: FLUCONAZOLE 100 MG TAB PO SCH (17:30)
[2016-07-21 17:34] LABS: Glucose,Whole Blood 259 mg/dL (75-99)
[2016-07-21 20:41] LABS: Glucose,Whole Blood 244 mg/dL (75-99)
[2016-07-21] MEDS: ATORVASTATIN 10 MG TAB PO SCH (20:53)
[2016-07-21] MEDS: EZETIMIBE 10 MG TAB PO SCH (20:53)
--- NOTE | 2016-07-21 22:17 | PN ---
DATE OF SERVICE: 07/21/2016 PRESENTING COMPLAINT: Short of breath, wheezing. INTERVAL HISTORY: Patient admitted to the hospital with COPD exacerbation, wheezing has become worse again today. Seen by Dr. Elise earlier. Increased patient's IV Solu-Medrol. Did tolerate some diet. Cough is present. Review of systems done for constitutional, cardiovascular, GI, pulmonary; relevant findings as above. Current medications are reviewed. The patient put back on IV Solu-Medrol, high-dose also on Duoneb. On examination, temperature 97.3, pulse 83, respirations 18, blood pressure 125/81, pulse ox 91% on 2 liters. General appearance: Sitting up, short of breath. Eyes pupils equal. Conjunctivae normal. NECK: JVD not raised. Mass not palpable. RESPIRATORY: Effort increased. LUNGS: Increased wheezing, expiratory. CARDIOVASCULAR: First and second sounds normal. No edema. ABDOMEN: Soft, nontender. Liver and spleen not palpable. PSYCHIATRY: Alert and oriented x3. Mood and affect anxious appearing. INVESTIGATIONS: Accu-Cheks are noted. ASSESSMENT: 1. Acute severe chronic obstructive pulmonary disease exacerbation of the presentation. In a smoker with clinical worsening. 2. Acute tracheobronchitis. 3. Presbyesophagus as per barium swallow. 4. Chronic nicotine dependence in an active cigarette smoker. 5. Anxiety, depression not otherwise specified. 6. Hyperglycemia, uncontrolled secondary to steroids. 7. Obesity, body mass index of 35.1. PLAN: Care was discussed with Dr. Elise. The patient ( ) dose of Solu-Medrol has been put back on. Patient is already on Scout-24. We will follow. We will go ahead and increase patient's Scout-24 to 300 mg a day.
[2016-07-21] MEDS: ALPRAZolam 0.25 MG TAB PO PRN (23:00)
[2016-07-22] MEDS: NICOTINE POLACRILEX 2 MG GUM BUCCAL SCH ×6 (03:19→23:06)
[2016-07-22] MEDS: methylPREDNISolone SOD SUCCI 125 MG/2 ML VIAL IV SCH ×4 (05:17→23:08)
[2016-07-22] MEDS: CHLORPHEN-HYDROcod 8-10mg/5ml 5 ML ORAL.SYRG PO SCH ×2 (05:17→17:29)
[2016-07-22] MEDS: BUDESONIDE 1 MG/2 ML NEBU INHALATION SCH ×2 (07:34→19:46)
[2016-07-22] MEDS: FORMOTEROL FUMARATE 20 MCG/2 ML NEBU INHALATION SCH ×2 (07:34→19:45)
[2016-07-22] MEDS: IPRATROPIUM-ALBUTEROL 3 ML NEB INHALATION SCH ×4 (07:34→19:45)
[2016-07-22 07:42] LABS: Glucose,Whole Blood 172 mg/dL (75-99)
[2016-07-22] MEDS: HYDROcodone/APAP 7.5-325MG 1 EACH TAB PO PRN ×3 (07:48→22:09)
[2016-07-22] MEDS: VENLAFAXINE HCL ER 150 MG CAP PO SCH ×2 (07:49→20:10)
[2016-07-22] MEDS: CHOLECALCIFEROL 1,000 UNIT TAB PO SCH (07:49)
[2016-07-22] MEDS: NICOTINE 14MG/24HR PATCH TRANSDERM SCH (07:49)
[2016-07-22] MEDS: ENOXAPARIN 40 MG/0.4 ML SYRINGE SQ SCH (07:49)
[2016-07-22] MEDS: FLUCONAZOLE 100 MG TAB PO SCH (07:50)
[2016-07-22] MEDS: LEVOFLOXACIN 500 MG TAB PO SCH (07:50)
[2016-07-22] MEDS: PANTOPRAZOLE 40 MG TABLET PO SCH ×2 (07:50→17:30)
[2016-07-22] MEDS: CALCIUM CARB-VIT D 500MG-200UN 1 EACH TAB PO SCH (07:50)
[2016-07-22] MEDS: THEOPHYLLINE 24 HOUR 300 MG CAP.ER.24H PO SCH (07:51)
[2016-07-22] MEDS: INSULIN LISPRO (humaLOG) 300 UNIT/3 ML VIAL SQ SCH ×4 (07:53→21:36)
[2016-07-22] MEDS: guaiFENesin-DM 100-10MG/5ML 10 ML CUP PO PRN (09:02)
[2016-07-22 12:11] LABS: Glucose,Whole Blood 197 mg/dL (75-99)
[2016-07-22] MEDS: BUTALB/APAP/CAFF 50-325-40MG TAB PO PRN (12:31)
[2016-07-22] MEDS: MULTIVITAMINS, THERA 1 EACH TAB PO SCH (12:32)
--- NOTE | 2016-07-22 12:51 | P.PN ---
Subjective This is a very pleasant 55-year-old female patient who follows with Dr. Luque as her primary care physician. She also follows in our office for severe chronic obstructive pulmonary disease. She has been maintained on Symbicort and Tudorza. She presented here on 07/16/2016. She was found to have an acute exacerbation of her COPD. The patient does continue to smoke. Her chest x- ray revealed no acute pulmonary process. She did undergo appears well today which revealed prolonged pooling of contrast within the esophagus even when the patient is upright secondary to some disorganized peristalsis and blunting of the normal secondary stripping waves. Findings could reflect early presbyesophagus. She is seen again today in follow-up on 07/22/2016. She is awake and alert. She is finally starting to improve. She is less short of breath than yesterday. Less bronchospastic and wheezy. She continues with a loose nonproductive cough. She is maintaining good O2 saturations in the mid 90s on 2 L/m per nasal cannula. She is afebrile. No acute distress. Blood cultures reveal no growth to date. Objective - Vital Signs Vital signs: Vital Signs Temp 97.2 F L 07/22/16 07:00 Pulse 84 07/22/16 11:15 Resp 22 07/22/16 09:35 BP 102/53 07/22/16 07:00 Pulse Ox 95 07/22/16 07:00 Intake & Output 07/21/16 07/22/16 07/22/16 18:59 06:59 18:59 Intake Total 550 Balance 550 Intake: IV 110 0.9 NS @ 10 ml/hr 110 Oral 440 Other: Voiding Method Toilet Toilet Toilet # Voids 3 0 # Bowel Movements 0 - Exam GENERAL EXAM: Alert, in no acute distress. HEAD: Normocephalic. EYES: Normal reaction of pupils, equal size. NOSE: Clear with pink turbinates. THROAT: No erythema or exudates. NECK: No masses, no JVD. CHEST: No chest wall deformity. LUNGS: Equal air entry with bilateral end expiratory wheeze. Diminished throughout. CVS: S1 and S2 normal with no audible mumurs, regular rhythm. ABDOMEN: No hepatosplenomegaly, normal bowel sounds, no guarding or rigidity. SPINE: No scoliosis or deformity SKIN: No rashes CENTRAL NERVOUS SYSTEM: No focal deficits, tone is normal in all 4 extremities. Extremities: There is no significant peripheral edema. No clubbing, no cyanosis. Peripheral pulses are intact. - Labs CBC & Chem 7: 07/19/16 08:25 07/19/16 08:25 Labs: Abnormal Lab Results - Last 24 Hours (Table) 07/21/16 07/21/16 07/22/16 Range/Units 17:27 20:39 07:40 POC Glucose (mg/dL) 259 H 244 H 172 H (75-99) mg/dL 07/22/16 Range/Units 12:09 POC Glucose (mg/dL) 197 H (75-99) mg/dL Assessment and Plan Plan: Impression: #1 Acute exacerbation of chronic obstructive pulmonary disease with secondary dyspnea. No acute pulmonary process on chest x-ray. #2 Chronic and ongoing tobacco dependence. #3 Obesity. #4 Depression. #5 Hyperlipidemia. #6 Remote history of colon cancer. #7 Possible early presbyesophagus. Plan: The patient was seen and evaluated by Dr. Elise. She is improved and nearly back to her baseline. We'll continue with her DuoNeb inhalations every 4 hours. We'll continue Brovana and Pulmicort inhalations twice a day. She remains on IV Solu-Medrol 60 mg every 6 hours. She is on empiric antibiotics in the form of Levaquin. She continues with Robitussin-DM for cough every 6 hours. She is again educated regarding the importance of complete smoking cessation. NicoDerm patch has been applied. We will increase her activity as tolerated. We'll continue to follow make further recommendations based on her clinical status. Probably home tomorrow.
[2016-07-22 17:13] LABS: Glucose,Whole Blood 184 mg/dL (75-99)
--- NOTE | 2016-07-22 17:46 | PN ---
DATE OF SERVICE: 07/22/2016 PRESENTING COMPLAINT: Short of breath, wheezing. INTERVAL HISTORY: Patient admitted to the hospital with chronic obstructive pulmonary disease exacerbation in a smoker. Wheezing is improving. Feeling a bit better, is on IV steroids, nebulized bronchodilators. Review of systems done for constitutional, cardiovascular, GI, pulmonary; relevant findings as above. Current medications include IV Solu-Medrol, nebulized bronchodilators. On examination, temperature 97.7, pulse 82, respirations 20, blood pressure 104/67, pulse of 96% on 2 liters. GENERAL APPEARANCE: Sitting up, anxious-appearing. EYES: Pupils equal. Conjunctivae normal. NECK: JVD not raised. RESPIRATORY: Effort increased. LUNGS: Improved air entry. Decreased wheezing. CARDIOVASCULAR: First and second sounds normal. No edema. ABDOMEN: Soft, nontender. Liver and spleen not palpable. PSYCHIATRY: Alert and oriented x3. Mood and affect slightly anxious. INVESTIGATIONS: Accu-Cheks are noted. ASSESSMENT: 1. Acute severe chronic obstructive pulmonary disease exacerbation in a smoker, improving. 2. Acute tracheobronchitis. 3. Presbyesophagus as per barium swallow with difficulty swallowing. 4. Chronic nicotine dependence in an active cigarette smoker. 5. Anxiety, depression, not otherwise specified. 6. Hyperglycemia, uncontrolled secondary to steroids. 7. Obesity, body mass index of 35.1. PLAN: Discussed with Liberty Sims from pulmonary. Hopefully patient can be discharged tomorrow. Continue current medications and treatment plan.
[2016-07-22] MEDS: ATORVASTATIN 10 MG TAB PO SCH (20:10)
[2016-07-22] MEDS: EZETIMIBE 10 MG TAB PO SCH (20:10)
[2016-07-22 20:45] LABS: Glucose,Whole Blood 276 mg/dL (75-99)
[2016-07-22] MEDS: ALPRAZolam 0.25 MG TAB PO PRN (22:08)
[2016-07-23] MEDS: NICOTINE POLACRILEX 2 MG GUM BUCCAL SCH ×3 (03:13→12:41)
[2016-07-23] MEDS: CHLORPHEN-HYDROcod 8-10mg/5ml 5 ML ORAL.SYRG PO SCH (05:13)
[2016-07-23] MEDS: methylPREDNISolone SOD SUCCI 125 MG/2 ML VIAL IV SCH (05:14)
[2016-07-23 07:25] VITALS: BP 122/78; RESP 20; TEMP 97.7
[2016-07-23 07:29] LABS: Glucose,Whole Blood 146 mg/dL (75-99)
[2016-07-23] MEDS: IPRATROPIUM-ALBUTEROL 3 ML NEB INHALATION SCH ×2 (08:16→12:24)
[2016-07-23] MEDS: FORMOTEROL FUMARATE 20 MCG/2 ML NEBU INHALATION SCH (08:16)
[2016-07-23] MEDS: BUDESONIDE 1 MG/2 ML NEBU INHALATION SCH (08:17)
[2016-07-23] MEDS: HYDROcodone/APAP 7.5-325MG 1 EACH TAB PO PRN ×2 (09:15→12:40)
[2016-07-23] MEDS: LEVOFLOXACIN 500 MG TAB PO SCH (09:15)
[2016-07-23] MEDS: ENOXAPARIN 40 MG/0.4 ML SYRINGE SQ SCH (09:16)
[2016-07-23] MEDS: PANTOPRAZOLE 40 MG TABLET PO SCH (09:16)
[2016-07-23] MEDS: VENLAFAXINE HCL ER 150 MG CAP PO SCH (09:16)
[2016-07-23] MEDS: CHOLECALCIFEROL 1,000 UNIT TAB PO SCH (09:17)
[2016-07-23] MEDS: CALCIUM CARB-VIT D 500MG-200UN 1 EACH TAB PO SCH (09:17)
[2016-07-23] MEDS: NICOTINE 14MG/24HR PATCH TRANSDERM SCH (09:17)
[2016-07-23] MEDS: FLUCONAZOLE 100 MG TAB PO SCH (09:18)
[2016-07-23] MEDS: THEOPHYLLINE 24 HOUR 300 MG CAP.ER.24H PO SCH (09:18)
[2016-07-23] MEDS: INSULIN LISPRO (humaLOG) 300 UNIT/3 ML VIAL SQ SCH ×2 (09:27→12:43)
--- NOTE | 2016-07-23 11:32 | P.PN ---
Subjective This is a very pleasant 55-year-old female patient who follows with Dr. Luque as her primary care physician. She also follows in our office for severe chronic obstructive pulmonary disease. She has been maintained on Symbicort and Tudorza. She presented here on 07/16/2016. She was found to have an acute exacerbation of her COPD. The patient does continue to smoke. Her chest x- ray revealed no acute pulmonary process. She did undergo appears well today which revealed prolonged pooling of contrast within the esophagus even when the patient is upright secondary to some disorganized peristalsis and blunting of the normal secondary stripping waves. Findings could reflect early presbyesophagus. She is seen again today in follow-up on 07/23/2016. She is awake and alert. She is nearly back to her baseline. She is less short of breath than yesterday. Less bronchospastic and wheezy. She continues with a loose nonproductive cough. She is maintaining good O2 saturations in the mid 90s on 2 L/m per nasal cannula. She is afebrile. No acute distress. Blood cultures reveal no growth to date. She is somewhat reluctant to go home and has some level of anxiety. Objective - Vital Signs Vital signs: Vital Signs Temp 97.7 F 07/23/16 07:00 Pulse 62 07/23/16 07:00 Resp 20 07/23/16 07:00 BP 122/78 07/23/16 07:00 Pulse Ox 94 L 07/23/16 07:00 Intake & Output 07/22/16 07/23/16 07/23/16 18:59 06:59 18:59 Intake Total 630 480 Balance 630 480 Intake: IV 110 0.9 NS @ 10 ml/hr 110 Oral 520 480 Other: Voiding Method Toilet Toilet # Voids 3 1 - Exam GENERAL EXAM: Alert, in no acute distress. HEAD: Normocephalic. EYES: Normal reaction of pupils, equal size. NOSE: Clear with pink turbinates. THROAT: No erythema or exudates. NECK: No masses, no JVD. CHEST: No chest wall deformity. LUNGS: Equal air entry with bilateral end expiratory wheeze. Diminished throughout. CVS: S1 and S2 normal with no audible mumurs, regular rhythm. ABDOMEN: No hepatosplenomegaly, normal bowel sounds, no guarding or rigidity. SPINE: No scoliosis or deformity SKIN: No rashes CENTRAL NERVOUS SYSTEM: No focal deficits, tone is normal in all 4 extremities. Extremities: There is no significant peripheral edema. No clubbing, no cyanosis. Peripheral pulses are intact. - Labs CBC & Chem 7: 07/19/16 08:25 07/19/16 08:25 Labs: Abnormal Lab Results - Last 24 Hours (Table) 07/22/16 07/22/16 07/22/16 Range/Units 12:09 16:58 20:34 POC Glucose (mg/dL) 197 H 184 H 276 H (75-99) mg/dL 07/23/16 Range/Units 07:03 POC Glucose (mg/dL) 146 H (75-99) mg/dL Assessment and Plan Plan: Impression: #1 Acute exacerbation of chronic obstructive pulmonary disease with secondary dyspnea. No acute pulmonary process on chest x-ray. #2 Chronic and ongoing tobacco dependence. #3 Obesity. #4 Depression. #5 Hyperlipidemia. #6 Remote history of colon cancer. #7 Possible early presbyesophagus. Plan: The patient was seen and evaluated by Dr. Elise. She is improved and nearly back to her baseline. We'll continue with her DuoNeb inhalations every 4 hours. We'll continue Brovana and Pulmicort inhalations twice a day. We'll try again for prednisone taper. She is on empiric antibiotics in the form of Levaquin. She continues with Robitussin-DM for cough every 6 hours. She is again educated regarding the importance of complete smoking cessation. NicoDerm patch has been applied. We will increase her activity as tolerated. We'll continue to follow make further recommendations based on her clinical status. Probably home later today or tomorrow.
[2016-07-23 11:55] LABS: Glucose,Whole Blood 149 mg/dL (75-99)
[2016-07-23 12:27] VITALS: PULSE 80
[2016-07-23] MEDS: MULTIVITAMINS, THERA 1 EACH TAB PO SCH (12:41)
[2016-07-23 13:52] VITALS: BMI 35.1
[2016-07-24] MEDS ORDERED: predniSONE 20 MG TAB PO SCH (09:00)
--- NOTE | 2016-07-24 09:34 | DS ---
DATE OF ADMISSION: 07/16/2016 DATE OF DISCHARGE: 07/23/2016 FINAL DIAGNOSES: 1. Acute severe chronic obstructive pulmonary disease exacerbation in a smoker, present on admission. 2. Acute tracheobronchitis. 3. Presbyesophagus as per barium swallow. 4. Chronic nicotine dependence in an active cigarette smoker. 5. Anxiety, depression, not otherwise specified. 6. Hyperglycemia, uncontrolled secondary to steroids. 7. Obesity, body mass index of 35.1. HOSPITAL COURSE: This patient is a long-standing smoker who presents with severe COPD exacerbation, doing better by the time of discharge. Patient also having some trouble swallowing. Barium swallow did show a presbyesophagus. GERD may be contributing, hence, started on PPIs. The patient is doing better at the time of discharge. ON EXAMINATION: LUNGS: Improved air entry. Decreased wheezing. CONSULTATION: Dr. Elise from pulmonary and Dr. Sid Mott from GI. Care was discussed in detail with the patient including cessation of smoking. DISCHARGE MEDICATIONS: 1. Ventolin 2.5 nebulizer q.6 p.r.n. 2. Symbicort 80/4.5 two puffs b.i.d. 3. Os-Fantasma 500 plus D one tablet p.o. ( ) 4. Vitamin D3, 2000 units p.o. daily. 5. Vytorin 10/10 one tablet p.o. q.h.s. 6. [place]el 7.5 one tablet q.4 p.r.n. 7. Multivitamin 1 tablet p.o. daily at noon. 8. Fioricet 1 to 2 capsules p.o. q.4 p.r.n. 9. Topamax 50 mg p.o. b.i.d. p.r.n. 10. Ventolin HFA 1 to 2 puffs q.6 p.r.n. 11. Xanax 0.25 p.o. q.i.d. p.r.n. 12. Effexor XR 150 mg p.o. b.i.d. 13. Diflucan 100 mg a day for 5 tablets. 14. DuoNeb q.i.d. 15. Levaquin 500 mg a day for 5 days. 16. Nicotine 14 mg patch 14 days. 17. Nicorette gum 2 mg q.4 p.r.n. 18. Protonix 40 mg b.i.d. 19. Scout-24, 300 mg p.o. daily. 20. Prednisone taper. Follow up with Dr. Elise in one week. Follow up with Dr. Luque in 3 days Follow up with Dr. Sid Mott in 3 weeks. Discharge planning more than 35 minutes.
== END 2016-07-23 14:09 | disposition home or self-care (01) | DRG 192 ==
LOC: EC 13:53 → 4MS4W 16:42
PROVIDERS: ADMIT Hospitalist; ATTEND Hospitalist
PROC: 3E0234Z Introduction of Serum, Toxoid and Vaccine into Muscle, Percutaneous Approach (ICD-10-PCS; principal; 2016-07-17)
DX: J44.0 Chronic obstructive pulmonary disease with (acute) lower respiratory infection (principal); R13.10 Dysphagia, unspecified; K22.8 Other specified diseases of esophagus; J44.1 Chronic obstructive pulmonary disease with (acute) exacerbation; J20.9 Acute bronchitis, unspecified; J45.909 Unspecified asthma, uncomplicated; R73.9 Hyperglycemia, unspecified; T38.0X5A Adverse effect of glucocorticoids and synthetic analogues, initial encounter; K21.9 Gastro-esophageal reflux disease without esophagitis; G43.709 Chronic migraine without aura, not intractable, without status migrainosus; E78.5 Hyperlipidemia, unspecified; M54.9 Dorsalgia, unspecified; R53.1 Weakness; D72.829 Elevated white blood cell count, unspecified; F32.9 Major depressive disorder, single episode, unspecified; F41.9 Anxiety disorder, unspecified; F17.210 Nicotine dependence, cigarettes, uncomplicated; Z85.038 Personal history of other malignant neoplasm of large intestine; Z82.5 Family history of asthma and other chronic lower respiratory diseases; Z82.49 Family history of ischemic heart disease and other diseases of the circulatory system; Z23 Encounter for immunization; Z79.891 Long term (current) use of opiate analgesic; Z79.51 Long term (current) use of inhaled steroids; Z79.899 Other long term (current) drug therapy; Z71.6 Tobacco abuse counseling; Z90.49 Acquired absence of other specified parts of digestive tract
CPT/HCPCS: 36415; 36569; 70450; 70460; 71020; 72193; 74000; 74177; 74220; 76937; 77001; 80048; 80053; 80177; 81001; 82150; 82533; 82550; 82553; 83036; 83605; 83690; 83735; 83880; 84100; 84484; 85025; 85379; 85610; 85730; 87040; 87070; 87075; 87077; 87086; 87186; 87205; 88307; 90686; 93005; 94640; 94760; 95819; 96361; 96365; 96375; 96376; 99285; 99291

== ENCOUNTER 2016-07-26 14:03 | Inpatient (IN) | payer OTHER ==
[2016-07-26] MEDS ORDERED: SODIUM CHLORIDE 0.9% 1,000 ML IV ONE ×2 (15:54→18:28)
[2016-07-26] MEDS ORDERED: MORPHINE SULFATE 4 MG/ML SYRINGE IVP STA ×2 (15:54→18:04)
--- NOTE | 2016-07-26 15:59 | ED ---
Abdominal Pain HPI <Osvaldo Ornelas - Last Filed: 07/26/16 18:56> - General Source: patient, RN notes reviewed Mode of arrival: ambulatory Limitations: no limitations <Pamela Harmon - Last Filed: 07/26/16 19:33> - General Chief Complaint: Abdominal Pain Stated Complaint: Abd Pain Time Seen by Provider: 07/26/16 15:28 - History of Present Illness Initial Comments: Patient is a 55-year-old female presents to the emergency room for evaluation of abdominal pain. Patient states she was discharged here on Thursday for COPD exacerbation. Patient states she thinks the medications caused her to become constipated. Patient states she hasn't had a bowel movement in about 5- 6 days. Patient is having increasing diffuse abdominal pain. Patient does state she has a history of cholecystectomy, appendectomy and colon resection from colon cancer. Patient denies any fevers or chills. Patient denies nausea or vomiting. Patient denies blood in the stools. Patient states she hasn't been able to take any of her medications due to pain. Patient states having 10 out of 10 constant throbbing diffuse abdominal pain. Patient denies shortness of breath, chest pain, headache, dizziness. Patient denies any history of bowel obstructions. (Pamela Harmon) - Related Data Home Medications Medication Instructions Recorded Confirmed Albuterol Nebulized [Ventolin 2.5 mg INHALATION RT-Q6H PRN 09/15/14 07/26/16 Nebulized] Budesonide/Formoterol Fumarate 2 puff INHALATION RT-BID PRN 09/15/14 07/26/16 [Symbicort 80-4.5 Mcg Inhaler] Calcium Carb-Vit D 500Mg-200Un 1 tab PO DAILY 09/15/14 07/26/16 [Oscal 500+D] Cholecalciferol [Vitamin D3] 2,000 unit PO DAILY 09/15/14 07/26/16 Ezetimibe/Simvastatin [Vytorin 1 tab PO HS 09/15/14 07/26/16 10-10 mg Tablet] HYDROcodone/APAP 7.5-325MG [[place] 1 tab PO Q4H PRN 09/15/14 07/26/16 7.5-325] Multivitamins, Thera [Multivitamin] 1 tab PO DAILY@1200 09/15/14 07/26/16 Butalb/Acetaminophen/Caffeine 1 - 2 cap PO Q4HR PRN 07/19/15 07/26/16 [Fioricet 50-300-40 mg Capsule] Topiramate [Topamax] 50 mg PO BID PRN 07/19/15 07/26/16 Albuterol Inhaler [Ventolin Hfa 1 - 2 puff INHALATION RT-Q6H PRN 10/21/15 Inhaler] ALPRAZolam [Xanax] 0.25 mg PO QID PRN 07/16/16 07/26/16 Venlafaxine HCl [Effexor XR] 150 mg PO BID 07/16/16 07/26/16 predniSONE See Taper PO DAILY 07/26/16 07/26/16 Previous Rx's Medication Instructions Recorded Fluconazole [Diflucan] 100 mg PO DAILY #5 tab 07/23/16 Ipratropium-Albuterol Nebulize 3 ml INHALATION RT-QID #120 07/23/16 [Duoneb 0.5 mg-3 mg/3 ml Soln] ampul.neb Levofloxacin [Levaquin] 500 mg PO DAILY #5 tab 07/23/16 Nicotine 14Mg/24Hr Patch [Habitrol] 1 patch TRANSDERM DAILY #14 patch 07/23/16 Nicotine Polacrilex [Nicorette] 2 mg BUCCAL Q4HR #30 gum 07/23/16 Pantoprazole [Protonix] 40 mg PO AC-BID #60 tablet. 07/23/16 Theophylline 24 Hour [Scout-24] 300 mg PO DAILY #30 cap.er.24h 07/23/16 Allergies Allergy/AdvReac Type Severity Reaction Status Date / Time No Known Allergies Allergy Verified 07/26/16 16:16 Review of Systems ROS Other: All systems not noted in ROS Statement are negative. <Osvaldo Ornelas - Last Filed: 07/26/16 18:56> ROS Other: All systems not noted in ROS Statement are negative. <Pamela Harmon - Last Filed: 07/26/16 19:33> ROS Statement: Those systems with pertinent positive or pertinent negative responses have been documented in the HPI. Past Medical History Past Medical History: COPD, Hyperlipidemia Additional Past Medical History / Comment(s): COPD, migraines, colon cancer, depression History of Any Multi-Drug Resistant Organisms: None Reported Past Surgical History: Appendectomy, Bowel Resection, Cholecystectomy, Hernia Repair, Tonsillectomy Additional Past Surgical History / Comment(s): re-hernia repair Past Anesthesia/Blood Transfusion Reactions: No Reported Reaction Additional Past Anesthesia/Blood Transfusion Reaction / Comment(s): spinal anesthesia Past Psychological History: Anxiety, Depression Smoking Status: Current every day smoker Past Alcohol Use History: Rare Past Drug Use History: None Reported - Past Family History Mother Family Medical History: No Reported History Father Family Medical History: COPD, Coronary Artery Disease (CAD) <Pamela Harmon - Last Filed: 07/26/16 19:33> General Exam <Osvaldo Ornelas - Last Filed: 07/26/16 18:56> Limitations: no limitations General appearance: alert, in no apparent distress Head exam: Present: atraumatic, normocephalic, normal inspection Eye exam: Present: normal appearance ENT exam: Present: normal exam Neck exam: Present: normal inspection Respiratory exam: Present: normal lung sounds bilaterally. Absent: respiratory distress Cardiovascular Exam: Present: regular rate, normal rhythm, normal heart sounds GI/Abdominal exam: Present: soft, tenderness (Left lower quadrant and right lower quadrant tenderness on palpation), guarding (voluntary guarding on palpating on the left lower quadrant and right lower quadrant), normal bowel sounds. Absent: rebound, rigid Extremities exam: Present: normal inspection Back exam: Present: normal inspection Neurological exam: Present: alert, oriented X3, CN II-XII intact, normal gait Psychiatric exam: Present: normal affect, normal mood Skin exam: Present: warm, dry, intact, normal color. Absent: rash <Pamela Harmon - Last Filed: 07/26/16 19:33> - General Exam Comments Initial Comments: Laying in exam room, appears uncomfortable secondary to pain, no acute distress. (Pamela Harmon) Medical Decision Making - Lab Data Result diagrams: 07/26/16 16:30 07/26/16 16:30 <Osvaldo Ornelas - Last Filed: 07/26/16 18:56> - Lab Data Result diagrams: 07/26/16 16:30 07/26/16 16:30 - Radiology Data Radiology results: report reviewed, image reviewed <Pamela Harmon - Last Filed: 07/26/16 19:33> - Medical Decision Making Patient reevaluated by myself, Dr. Ornelas. Blood pressure 96/50. Abdomen is soft with moderate tenderness of the lower abdomen. CT report reviewed. Patient will be started on IV antibiotics. Case was discussed in detail with Dr. flores, who will admit for a [place]. Surgery will be consult. (Osvaldo Ornelas) Patient is a 55-year-old female presents to the emergency room for evaluation of abdominal pain and constipation. Patient noted to have significantly elevated WBC. Patient's blood pressure running low. Patient given 2 L of fluids while down in the ER. CT significant for possible abscess formation between sigmoid colon and uterus. Case discussed with Dr. Ornelas. Dr. Ornelas also evaluated patient. Dr. Ornelas discussed case with Dr. Abad who agreed to admit patient. Patient will be consulted with surgery. Patient started on IV antibiotics. Plan discussed with patient and her family. (Pamela Harmon ) - Lab Data Lab Results 07/26/16 07/26/16 07/26/16 Range/Units 16:30 16:30 16:30 WBC 33.6 H* (3.8-10.6) k/uL RBC 5.25 (3.80-5.40) m/uL Hgb 14.9 (11.4-16.0) gm/dL Hct 46.2 H (34.0-46.0) % MCV 87.9 (80.0-100.0) fL MCH 28.3 (25.0-35.0) pg MCHC 32.2 (31.0-37.0) g/dL RDW 13.1 (11.5-15.5) % Plt Count 353 (150-450) k/uL Neutrophils % 90 % Lymphocytes % 5 % Monocytes % 4 % Eosinophils % 0 % Basophils % 0 % Neutrophils # 30.3 H (1.3-7.7) k/uL Lymphocytes # 1.7 (1.0-4.8) k/uL Monocytes # 1.3 H (0-1.0) k/uL Eosinophils # 0.1 (0-0.7) k/uL Basophils # 0.0 (0-0.2) k/uL Sodium 134 L (137-145) mmol/L Potassium 4.5 (3.5-5.1) mmol/L Chloride 94 L (98-107) mmol/L Carbon Dioxide 26 (22-30) mmol/L Anion Gap 14 mmol/L BUN 24 H (7-17) mg/dL Creatinine 0.83 (0.52-1.04) mg/dL Est GFR (MDRD) Af Amer >60 (>60 ml/min/1.73 sqM) Est GFR (MDRD) Non-Af >60 (>60 ml/min/1.73 sqM) Glucose 121 H (74-99) mg/dL Plasma Lactic Acid Nadir (0.7-2.0) mmol/L Calcium 9.0 (8.4-10.2) mg/dL Total Bilirubin 0.8 (0.2-1.3) mg/dL AST 45 H (14-36) U/L ALT 98 H (9-52) U/L Alkaline Phosphatase 116 (38-126) U/L Total Protein 6.5 (6.3-8.2) g/dL Albumin 3.5 (3.5-5.0) g/dL Amylase 31 (30-110) U/L Lipase 34 (23-300) U/L Urine Color Yellow Urine Appearance Cloudy H (Clear) Urine pH 6.0 (5.0-8.0) Ur Specific [place] 1.024 (1.001-1.035) Urine Protein 2+ H (Negative) Urine Glucose (UA) Negative (Negative) Urine Ketones 1+ H (Negative) Urine Blood Small H (Negative) Urine Nitrate Negative (Negative) Urine Bilirubin 1+ H (Negative) Urine Urobilinogen 2.0 (<2.0) mg/dL Ur Leukocyte Esterase Trace H (Negative) Urine RBC 5 (0-5) /hpf Urine WBC 13 H (0-5) /hpf Ur Squamous Epith Cells 26 H (0-4) /hpf Urine Bacteria Moderate H (None) /hpf Hyaline Casts 6 H (0-2) /lpf Urine Mucus Many H (None) /hpf 07/26/16 Range/Units 17:15 WBC (3.8-10.6) k/uL RBC (3.80-5.40) m/uL Hgb (11.4-16.0) gm/dL Hct (34.0-46.0) % MCV (80.0-100.0) fL MCH (25.0-35.0) pg MCHC (31.0-37.0) g/dL RDW (11.5-15.5) % Plt Count (150-450) k/uL Neutrophils % % Lymphocytes % % Monocytes % % Eosinophils % % Basophils % % Neutrophils # (1.3-7.7) k/uL Lymphocytes # (1.0-4.8) k/uL Monocytes # (0-1.0) k/uL Eosinophils # (0-0.7) k/uL Basophils # (0-0.2) k/uL Sodium (137-145) mmol/L Potassium (3.5-5.1) mmol/L Chloride (98-107) mmol/L Carbon Dioxide (22-30) mmol/L Anion Gap mmol/L BUN (7-17) mg/dL Creatinine (0.52-1.04) mg/dL Est GFR (MDRD) Af Amer (>60 ml/min/1.73 sqM) Est GFR (MDRD) Non-Af (>60 ml/min/1.73 sqM) Glucose (74-99) mg/dL Plasma Lactic Acid Nadir 0.9 (0.7-2.0) mmol/L Calcium (8.4-10.2) mg/dL Total Bilirubin (0.2-1.3) mg/dL AST (14-36) U/L ALT (9-52) U/L Alkaline Phosphatase (38-126) U/L Total Protein (6.3-8.2) g/dL Albumin (3.5-5.0) g/dL Amylase (30-110) U/L Lipase (23-300) U/L Urine Color Urine Appearance (Clear) Urine pH (5.0-8.0) Ur Specific [place] (1.001-1.035) Urine Protein (Negative) Urine Glucose (UA) (Negative) Urine Ketones (Negative) Urine Blood (Negative) Urine Nitrate (Negative) Urine Bilirubin (Negative) Urine Urobilinogen (<2.0) mg/dL Ur Leukocyte Esterase (Negative) Urine RBC (0-5) /hpf Urine WBC (0-5) /hpf Ur Squamous Epith Cells (0-4) /hpf Urine Bacteria (None) /hpf Hyaline Casts (0-2) /lpf Urine Mucus (None) /hpf Disposition <Osvaldo Ornelas - Last Filed: 07/26/16 18:56> Decision Date: 07/26/16 <Pamela Harmon - Last Filed: 07/26/16 19:33> Clinical Impression: Abdominal pain, Leukocytosis, Intra-abdominal abscess Disposition: ADMITTED IP TO THIS HOSP Condition: Stable Referrals: Philip Luque MD [Primary Care Provider] - 1-2 days
--- NOTE | 2016-07-26 16:44 | XR ---
EXAMINATION TYPE: XR KUB DATE OF EXAM: 07/26/2016 4:00 PM COMPARISON: NONE INDICATION: Pain short of breath dyspnea COPD TECHNIQUE: Single view abdomen upright view FINDINGS: There is a normal bowel gas pattern. Psoas margins are normal. No organomegaly is present. Contrast is within the distal:. Diverticular changes are within the sigmoid colon region. IMPRESSION: 1. No acute process evident.
[2016-07-26 16:46] LABS: Basophils % (A) 0 %; CH 28.9; Eosinophils # (A) 0.1 k/uL (0-0.7); Eosinophils % (A) 0 %; HCT 46.2 % (34.0-46.0); HDW 2.29; HGB 14.9 gm/dL (11.4-16.0); Luc # (Auto) 0.19; Luc % (Auto) 1; Lymphocytes # (A) 1.7 k/uL (1.0-4.8); Lymphocytes % (A) 5 %; MCH 28.3 pg (25.0-35.0); MCHC 32.2 g/dL (31.0-37.0); MCV 87.9 fL (80.0-100.0); Mean Platelet Volume 6.8; Monocytes # (A) 1.3 k/uL (0-1.0); Monocytes % (A) 4 %; Neutrophils # (A) 30.3 k/uL (1.3-7.7); Neutrophils % (A) 90 %; RBC 5.25 m/uL (3.80-5.40); RDW 13.1 % (11.5-15.5)
[2016-07-26 16:47] LABS: Appearance,Urine Cloudy (Clear); Bacteria,Urine Moderate /hpf; Bilirubin,Urine 1+ (Negative); Glucose,Urine (UA) Negative (Negative); Ketones,Urine 1+ (Negative); Leukocyte Esterase,Urine Trace (Negative); Mucus,Urine Many /hpf; Nitrite,Urine Negative (Negative); Particle Count 23499; Protein,Urine 2+ (Negative); RBC,Urine 5 /hpf (0-5); Specific Gravity,Urine 1.024 (1.001-1.035); Squamous Epithelial Cell,Urine 26 /hpf (0-4); UA Billing (MACRO vs. MICRO) MICRO; WBC,Urine 13 /hpf (0-5)
[2016-07-26 16:52] LABS: WBC 33.6 k/uL (3.8-10.6)
[2016-07-26 16:59] LABS: ALT 98 U/L (9-52); AST 45 U/L (14-36); Alkaline Phosphatase 116 U/L (38-126); Amylase 31 U/L (30-110); Anion Gap 14 mmol/L; Blood Urea Nitrogen 24 mg/dL (7-17); Carbon Dioxide 26 mmol/L (22-30); Chloride 94 mmol/L (98-107); Glucose 121 mg/dL (74-99); Non-African American GFR(MDRD) >60 (>60 ml/min/1.73 sqM); Potassium 4.5 mmol/L (3.5-5.1); Sodium 134 mmol/L (137-145); Total Bilirubin 0.8 mg/dL (0.2-1.3); Total Protein 6.5 g/dL (6.3-8.2)
[2016-07-26] MEDS ORDERED: RX INFO: IV CONTRAST WAS GIVEN 1 EACH MISC MISCELLANE PRN (17:05)
--- NOTE | 2016-07-26 18:36 | CT ---
EXAMINATION TYPE: CT abdomen pelvis w con DATE OF EXAM: 07/26/2016 5:37 PM COMPARISON: NONE INDICATION: Lower abdominal pain. Hx of colon CA and hernia repair. Elevated white count DLP: 1198.5 mGycm, Automated exposure control for dose reduction was used. CONTRAST: 100 mL of Omnipaque 300. Study performed without Oral Contrast TECHNIQUE: Axial images were obtained from above the diaphragm to the pubic rami in the axial plane a t 5 mm thick sections. Reconstructed images are reviewed on the computer in the coronal plane. FINDINGS: Limited CT sections are obtained the lung bases. The lung bases are clear. CT ABDOMEN: Liver: Normal Spleen: Normal Pancreas: Normal Adrenal glands: The adrenal glands are normal. Gallbladder: Normal Kidneys: No masses are evident. No hydronephrosis is present. Multiple calcifications are within th e atrophic appearing superior pole right kidney. Prior cortical infarct may be present. Remainder of the kidney appears without suspicious masses or cysts. Delayed images were obtained through the kidne ys. Aorta: Vascular calcification is within the aorta. Inferior vena cava: Normal. CT PELVIS: There is thickening of the sigmoid colon. Diverticular changes are present. Suspicious inflammatory c hanges adjacent to the sigmoid colon are not identified. There is some thickening which is difficult to separate from the adjacent uterus. There is a low-density collection between the uterus and the si gmoid colon measuring 2.5 x 1.6 cm. A small abscess could be considered at this level. Contrast may b e present within this area. Air appears to extend from the sigmoid colon towards this abscess. Right hemicolectomy appears to have been performed. Appendix: Not visualized Urinary bladder: Normal. Genitourinary structures: Uterus otherwise appears normal. No suspicious adnexal masses are identifie d. Osseous structures: No suspicious lytic or sclerotic lesions. Degenerative disc changes are present L 5-S1. IMPRESSIONS: 1. There may be some diffuse thickening through the sigmoid colon. There is a collection between the uterus and the sigmoid colon which may be a abscess. Clinical correlation recommended. Report called case discussed with the emergency room physician by Dr. Wills by telephone at the time of interpre tation.
[2016-07-26] MEDS ORDERED: HYDROmorphone 1 MG/ML 1 ML SYRINGE IVP STA (18:58)
[2016-07-26] MEDS ORDERED: ONDANSETRON 4 MG/2 ML VIAL IVP PRN (19:00)
[2016-07-26] MEDS ORDERED: AMPICILLIN-SULBACTAM 3 GM in SODIUM CHLORIDE 0.9% 100 ML IVPB STA (19:00)
[2016-07-26] MEDS ORDERED: NALOXONE 0.4 MG/ML 1 ML VIAL IV PRN (19:00)
[2016-07-26] MEDS: SODIUM CHLORIDE 0.9% 1,000 ML IV SCH (19:30)
[2016-07-26] MEDS: HYDROmorphone 1 MG/ML 1 ML SYRINGE IV PRN (22:05)
[2016-07-26] MEDS ORDERED: ALBUTEROL INHALER 60 PUFF/8 GM INHALER INHALATION PRN (22:55)
[2016-07-26] MEDS ORDERED: TOPIRAMATE 25 MG TAB PO PRN (22:55)
[2016-07-26] MEDS ORDERED: ALBUTEROL NEBULIZED 2.5 MG/3 ML INHALATION PRN (22:55)
[2016-07-26] MEDS ORDERED: EZETIMIBE 10 MG TAB PO SCH (23:00)
[2016-07-26] MEDS: NICOTINE 14MG/24HR PATCH TRANSDERM SCH (23:37)
[2016-07-26] MEDS: metroNIDAZOLE-NS PMX 500 MG in SALINE 1 100ML.BAG IVPB SCH (23:38)
[2016-07-27] MEDS: ATORVASTATIN 10 MG TAB PO SCH ×2 (00:17→20:06)
[2016-07-27] MEDS: VENLAFAXINE HCL ER 150 MG CAP PO SCH ×3 (00:24→20:06)
[2016-07-27] MEDS: NICOTINE POLACRILEX 2 MG GUM BUCCAL SCH ×6 (00:25→20:02)
[2016-07-27] MEDS: SODIUM CHLORIDE 0.9% 1,000 ML IV SCH ×4 (00:25→20:07)
[2016-07-27] MEDS: EZETIMIBE 10 MG TAB PO SCH ×2 (00:32→20:05)
[2016-07-27] MEDS: PIPERACILLIN-TAZOBACTAM 3.375 GM in DEXTROSE/WATER 1 50ML.BAG IVPB SCH ×3 (00:53→18:04)
[2016-07-27] MEDS: HYDROmorphone 1 MG/ML 1 ML SYRINGE IV PRN ×5 (01:20→20:04)
[2016-07-27] MEDS: metroNIDAZOLE-NS PMX 500 MG in SALINE 1 100ML.BAG IVPB SCH ×3 (05:27→22:33)
[2016-07-27 07:31] LABS: Basophils # (A) 0.3 k/uL (0-0.2); Basophils % (A) 2 %; CH 28.5; CHCM 31.2; Eosinophils # (A) 0.1 k/uL (0-0.7); Eosinophils % (A) 1 %; HCT 39.5 % (34.0-46.0); HDW 2.37; HGB 12.1 gm/dL (11.4-16.0); Luc # (Auto) 0.15; Luc % (Auto) 1; Lymphocytes # (A) 1.2 k/uL (1.0-4.8); Lymphocytes % (A) 6 %; MCH 28.2 pg (25.0-35.0); MCHC 30.8 g/dL (31.0-37.0); MCV 91.8 fL (80.0-100.0); Mean Platelet Volume 7.5; Monocytes # (A) 1.2 k/uL (0-1.0); Monocytes % (A) 6 %; Neutrophils # (A) 17.6 k/uL (1.3-7.7); Neutrophils % (A) 86 %; RDW 13.3 % (11.5-15.5); WBC 20.6 k/uL (3.8-10.6); WBC (Perox) 21.48
[2016-07-27] MEDS: SYMBICORT 80-4.5 MCG INHALER INHALATION PRN ×2 (07:37→20:30)
[2016-07-27] MEDS: IPRATROPIUM-ALBUTEROL 3 ML NEB INHALATION SCH ×4 (07:37→20:30)
[2016-07-27] MEDS: PANTOPRAZOLE 40 MG TABLET PO SCH ×2 (13:10→16:46)
[2016-07-27] MEDS: CHOLECALCIFEROL 1,000 UNIT TAB PO SCH (13:12)
[2016-07-27] MEDS: CALCIUM CARB-VIT D 500MG-200UN 1 EACH TAB PO SCH (13:12)
[2016-07-27] MEDS: THEOPHYLLINE 24 HOUR 300 MG CAP.ER.24H PO SCH (13:13)
[2016-07-27] MEDS: MULTIVITAMINS, THERA 1 EACH TAB PO SCH (13:14)
[2016-07-27] MEDS: NICOTINE 14MG/24HR PATCH TRANSDERM SCH (13:14)
--- NOTE | 2016-07-27 15:12 | P.GSCN ---
History of Present Illness Consult date: 07/27/16 Reason for Consult: Abdominal pain Requesting physician: Eduar Abad History of present illness: The patient is a 55-year-old female who was recently discharged less than 5 days ago for exacerbation of chronic obstructive pulmonary disease. She has been placed on a steroid taper. She reports that she was ieating healthy foods including salad. Her last bowel movement was 7 days ago. Her bowel movements are soft consistency. She has known history of post cholecystectomy diarrhea. She had a previous colonoscopy in July 2015 that demonstrated adenoma as well as severe diverticulosis. She has personal history of colon cancer with right hemicolectomy and incisional hernia repair with mesh. She now presents back to the hospital for acute onset abdominal pain for several days ago. She reports eating a [employer] hotdog 4 days ago and her pain was immediately within 1-2 hours. Now she is admitted with white count well over 33,000. Her abdominal pain has improved however not completely resolved. She has some difficulty with pain including with walking. Overall her main concern is avoiding a colostomy bag. Since IV fluid hydration and recheck of her white blood cell count, her white blood cell count is now down to 20,000. She reports an appetite. Review of Systems CONSTITUTIONAL: No recent fever since admission. HEENT: Denies any trouble with vision, hearing or nosebleeds. No difficulty swallowing. LYMPHATIC: The patient denies any lumps and bumps around the neck. ENDOCRINE: Denies any thyroid disorders. Denies any blood sugar glucose intolerance. Recent exposure to steroids. RESPIRATORY: Recent COPD exacerbation with steroid taper. Has dyspnea on exertion. CARDIOVASCULAR: Denies any chest pain, palpitations, or recent heart attacks. Has hypotension asymptomatic. GASTROINTESTINAL: Denies heart burn, constipation or bright red blood per rectum. GENITOURINARY: Denies any blood in urine or increased urinary frequency. MUSCULOSKELETAL: Has back pain, stiffness or joint arthritis. NEUROLOGIC: Denies any numbness or tingling along the distal extremities. No seizure disorders or headaches. PSYCHIATRIC: Has depression. No suidical ideation. HEMATOLOGIC: Denies any abnormal bleeding or bruising. Past Medical History Past Medical History: COPD, Hyperlipidemia Additional Past Medical History / Comment(s): COPD, migraines, colon cancer, depression History of Any Multi-Drug Resistant Organisms: None Reported Past Surgical History: Appendectomy, Bowel Resection, Cholecystectomy, Hernia Repair, Tonsillectomy Additional Past Surgical History / Comment(s): re-hernia repair Past Anesthesia/Blood Transfusion Reactions: No Reported Reaction Additional Past Anesthesia/Blood Transfusion Reaction / Comm: spinal anesthesia Past Psychological History: Anxiety, Depression Smoking Status: Former smoker Past Alcohol Use History: Rare Past Drug Use History: None Reported - Past Family History Mother Family Medical History: No Reported History Father Family Medical History: COPD, Coronary Artery Disease (CAD) Medications and Allergies Home Medications Medication Instructions Recorded Confirmed Type Albuterol Nebulized [Ventolin 2.5 mg INHALATION RT-Q6H PRN 09/15/14 07/26/16 History Nebulized] Budesonide/Formoterol Fumarate 2 puff INHALATION RT-BID PRN 09/15/14 07/26/16 History [Symbicort 80-4.5 Mcg Inhaler] Calcium Carb-Vit D 500Mg-200Un 1 tab PO DAILY 09/15/14 07/26/16 History [Oscal 500+D] Cholecalciferol [Vitamin D3] 2,000 unit PO DAILY 09/15/14 07/26/16 History Ezetimibe/Simvastatin [Vytorin 1 tab PO HS 09/15/14 07/26/16 History 10-10 mg Tablet] HYDROcodone/APAP 7.5-325MG [[place] 1 tab PO Q4H PRN 09/15/14 07/26/16 History 7.5-325] Multivitamins, Thera [Multivitamin] 1 tab PO DAILY@1200 09/15/14 07/26/16 History Butalb/Acetaminophen/Caffeine 1 - 2 cap PO Q4HR PRN 07/19/15 07/26/16 History [Fioricet 50-300-40 mg Capsule] Topiramate [Topamax] 50 mg PO BID PRN 07/19/15 07/26/16 History Albuterol Inhaler [Ventolin Hfa 1 - 2 puff INHALATION RT-Q6H PRN 10/21/15 History Inhaler] ALPRAZolam [Xanax] 0.25 mg PO QID PRN 07/16/16 07/26/16 History Venlafaxine HCl [Effexor XR] 150 mg PO BID 07/16/16 07/26/16 History predniSONE See Taper PO DAILY 07/26/16 07/26/16 History Allergies Allergy/AdvReac Type Severity Reaction Status Date / Time No Known Allergies Allergy Verified 07/26/16 16:16 Surgical - Exam Vital Signs Temp Pulse Resp BP Pulse Ox 98.3 F 63 20 99/59 100 07/26/16 15:22 07/26/16 15:22 07/26/16 15:22 07/26/16 15:22 07/26/16 15:22 GENERAL: Well developed and in no acute distress. Pleasant. HEENT: No sclera icterus. Extraocular movements grossly intact. Moist buccal mucosa. Head is atraumatic, normocephalic. Hears conversational speech. No nasal drainage. NECK: Supple without lymphadenopathy. CHEST: Non-labored respirations and equal bilateral excursions. CARDIOVASCULAR: Regular rate and rhythm. Palpable 2+ radial pulses. ABDOMEN: Soft. Tender along the bilateral lower abdomen. No abdominal rigidity. MUSCULOSKELETAL: No clubbing, cyanosis or edema. NEUROLOGIC: No focal or lateralizing signs. Cranial nerves II through XII grossly intact. PSYCH: Appropriate affect. Alert and oriented to person, place and time. Results - Labs 07/27/16 06:42 07/26/16 16:30 Abnormal Lab Results - Last 24 Hours (Table) 07/27/16 Range/Units 06:42 WBC 20.6 H (3.8-10.6) k/uL MCHC 30.8 L (31.0-37.0) g/dL Neutrophils # 17.6 H (1.3-7.7) k/uL Monocytes # 1.2 H (0-1.0) k/uL Basophils # 0.3 H (0-0.2) k/uL - Imaging CT scan - abdomen: report reviewed, image reviewed CT scan - pelvis: report reviewed, image reviewed (I personally reviewed her films demonstrating fluid collection abscess pocket within the pelvis. No diffuse pneumoperitoneum identified) Assessment and Plan (1) Diverticulitis of intestine with perforation and abscess Status: Acute (2) COPD exacerbation Status: Acute (3) Adrenal insufficiency due to corticosteroid withdrawal Status: Acute (4) Hypotension Status: Acute (5) Bilateral lower abdominal pain Status: Acute (6) Obesity (BMI 30.0-34.9) Status: Chronic (7) History of colon cancer Status: Chronic (8) S/P right colectomy Status: Chronic (9) History of incisional hernia repair Status: Chronic (10) Peritoneal adhesion Status: Chronic (11) Intra-abdominal abscess Status: Acute (12) Leukocytosis Status: Acute Plan: 1. I discussed with the patient that with her presentation and abdominal pain, surgical intervention with a temporary colostomy may be needed. Per patient request, she wishes to pursue other alternatives including interventional radiology drainage of her abscess. She reports that her abdominal pain has improved since admission. 2. I recommended ice chips in the interim. However she will be nothing by mouth after midnight for possible drainage by interventional radiology tomorrow. 3. Her vital signs are consistent with adrenal insufficiency with asymptomatic hypotension. I personally discussed with the patient's admitting provider where a cortisol level will be obtained. She will likely need steroids for her recent history of COPD exacerbation as well. 4. Continue with IV antibiotics including Flagyl. 5. She reports history of diarrhea and C. diff assay is pending. 6. Patient prognosis is guarded between her recent COPD exacerbation including adrenal insufficiency and perforated diverticulitis. Recommend future sigmoid colectomy given severity of presentation. 7. Any surgical intervention would be more challenging with her previous history of multiple surgeries including right hemicolectomy and ventral hernia repair with mesh. 8. I also discussed with the patient of my limited availability starting tomorrow. Hope surgical we'll follow the patient closely. Thank you for this kind consultation.
[2016-07-27] MEDS ORDERED: ACETAMINOPHEN IV (For NPO) 1,000 MG in SALINE 1 100ML.BAG IVPB PRN (15:21)
[2016-07-27] MEDS: FLUCONAZOLE 100 MG TAB PO SCH (16:35)
[2016-07-27] MEDS: HYDROCORTISONE SUCCINATE 100 MG/2 ML VIAL IV SCH (16:35)
--- NOTE | 2016-07-27 17:23 | HP ---
DATE OF ADMISSION: 07/26/2016 PRESENTING COMPLAINT: Abdominal pain. HISTORY OF PRESENTING COMPLAINT: This is a patient who was just discharged from the hospital on 07/23/2016, was admitted on 07/16/2016. Patient's last admission, patient was here with COPD exacerbation and was doing much better at the time she was discharged. Patient is a smoker. Patient presents with for 5 days of no bowel movement. Increasing lower abdominal pain. No nausea, vomiting, no fever. White count had bumped up. CT scan showed possible diverticulitis and maybe an abscess collection in the pelvis, hence patient was made n.p.o. and admitted. Patient has a chronic stable medical condition that include presbyesophagus, anxiety, depression, patient is obese. REVIEW OF SYSTEMS: CONSTITUTIONAL: Tired. HEENT: None. RESPIRATORY: Breathing is improved. CARDIOVASCULAR: None. GASTROINTESTINAL: As above. GENITOURINARY: None. MUSCULOSKELETAL: None. DERMATOLOGICAL: None. HEMATOLOGICAL: None. LYMPHATIC: None. PSYCHIATRY: Anxiety. NEUROLOGICAL: None. Past medical history COPD, hyperlipidemia, migraine, colon cancer, depression, presbyesophagus. PAST SURGICAL HISTORY: Appendectomy, bowel resection, cholecystectomy, hernia repair, tonsillectomy, hernia repair with mesh for abdominal pain wall hernia. SOCIAL HISTORY: Patient was smoking 1-1/2 pack a day until about a week ago, lives with her daughter. FAMILY HISTORY: Noncontributory to presentation. HOME MEDICATIONS: Per my discharge summary on 07/23/2016. 1. Ventolin 2.5 nebulizer q.6 p.r.n. 2. Symbicort 80/4.5 two puffs b.i.d. 3. Os-Fantasma 500 with D 1 tablet p.o. daily. 4. Vitamin D3 two thousand units p.o. daily. 5. Vytorin 10-10 one tablet p.o. q.h.s. 6. Waldo 7.5 one tablet q.4 p.r.n. 7. Multivitamin 1 tablet p.o. daily p.r.n. at noon. 8. Fioricet q.4 p.r.n. 9. Topamax 50 mg p.o. b.i.d. p.r.n. 10. Ventolin HFA 1 to 2 puffs q.6 p.r.n. 11. Xanax 0.25 p.o. q.i.d. p.r.n. 12. Effexor-XR 150 mg p.o. b.i.d. 13. Diflucan 100 mg a day for 5 days. 14. DuoNeb q.i.d. 15. Levaquin 500 mg a day for 5 days. 16. Nicotine 14 mg patch. 17. Nicorette gum p.r.n. 18. Protonix 40 mg b.i.d. 19. Scout-24 three hundred mg a day. 20. Prednisone taper. On examination, vital signs on presentation: Temperature 98.3, pulse 63, respirations 20, blood pressure 99/59, pulse ox 100% on room air. GENERAL APPEARANCE: Well built, BMI 32, sitting up, anxious -appearing. EYES: Pupils equal. Conjunctivae normal. HEENT: Oral cavity normal. NECK: JVD not raised. Mass not palpable. Respiratory effort normal. LUNGS: Fair air entry. CARDIOVASCULAR: First and second sounds normal. No edema. ABDOMEN: Lower abdominal tenderness, no guarding, no rigidity. Liver and spleen not palpable. LYMPHATIC: No lymph node palpable in neck or axillae. PSYCHIATRY: Alert and oriented x3. Mood and affect anxious-appearing. NEUROLOGICAL: Pupils equal. Cranial nerves grossly intact. Power and sensation grossly intact. INVESTIGATIONS: White count 33.6, patient's white count was 14 on 07/19/2016, hemoglobin 14.9, potassium 4.5. BUN 24, creatinine 0.83. CT scan of the abdomen and pelvis shows distinctive sigmoid colon and diverticular changes are present. Suspicious inflammatory changes in the sigmoid colon not identified. Low-density collection in the uterus and the sigmoid colon. Right hemicolectomy previously. Air appears to extend from the sigmoid colon ( ). ASSESSMENT: 1. Possibility of acute sigmoid diverticulitis with a localized abscess with some air noticed in a patient with prior history of abscess with possible sepsis on presentation. 2. History of colon cancer with a right hemicolectomy. 3. Chronic obstructive pulmonary disease in an ex-smoker. 4. Presbyesophagus. 5. Anxiety, depression not otherwise specified. 6. Obesity, body mass index of 35.1. 7. Possible adrenal insufficiency from patient and sepsis with an ( ) episode. PLAN: Patient is on IV Zosyn, Flagyl, given ice chips. Patient was given IV fluids. Home medications otherwise resumed. Care was discussed with the patient. General Surgery, Dr. Anand was consulted. Care was discussed with the patient in detail. Also give IV hydrocortisone.
[2016-07-27 20:22] LABS: Glucose,Whole Blood 137 mg/dL (75-99)
[2016-07-28] MEDS: PIPERACILLIN-TAZOBACTAM 3.375 GM in DEXTROSE/WATER 1 50ML.BAG IVPB SCH ×4 (00:23→23:49)
[2016-07-28] MEDS: NICOTINE POLACRILEX 2 MG GUM BUCCAL SCH ×8 (00:23→23:50)
[2016-07-28] MEDS: HYDROCORTISONE SUCCINATE 100 MG/2 ML VIAL IV SCH ×4 (00:24→23:26)
[2016-07-28] MEDS: ALPRAZolam 0.25 MG TAB PO PRN ×3 (00:34→22:26)
[2016-07-28] MEDS: SODIUM CHLORIDE 0.9% 1,000 ML IV SCH ×4 (00:46→23:33)
[2016-07-28] MEDS: HYDROmorphone 1 MG/ML 1 ML SYRINGE IV PRN ×5 (03:02→22:14)
[2016-07-28] MEDS: metroNIDAZOLE-NS PMX 500 MG in SALINE 1 100ML.BAG IVPB SCH ×3 (05:21→22:32)
[2016-07-28 07:21] LABS: Basophils % (A) 0 %; CH 28.4; CHCM 31.1; Eosinophils % (A) 0 %; HCT 38.4 % (34.0-46.0); HDW 2.33; HGB 12.2 gm/dL (11.4-16.0); Luc # (Auto) 0.14; Luc % (Auto) 1; Lymphocytes # (A) 0.9 k/uL (1.0-4.8); Lymphocytes % (A) 6 %; MCHC 31.6 g/dL (31.0-37.0); MCV 91.6 fL (80.0-100.0); Mean Platelet Volume 6.5; Monocytes # (A) 0.6 k/uL (0-1.0); Monocytes % (A) 4 %; Neutrophils # (A) 13.4 k/uL (1.3-7.7); Neutrophils % (A) 89 %; RBC 4.19 m/uL (3.80-5.40); RDW 13.3 % (11.5-15.5); WBC (Perox) 16.17
[2016-07-28 07:42] LABS: Anion Gap 10 mmol/L; Blood Urea Nitrogen 15 mg/dL (7-17); Calcium 8.2 mg/dL (8.4-10.2); Carbon Dioxide 27 mmol/L (22-30); Chloride 101 mmol/L (98-107); Glucose 124 mg/dL (74-99); Non-African American GFR(MDRD) >60 (>60 ml/min/1.73 sqM); Potassium 4.9 mmol/L (3.5-5.1); Sodium 138 mmol/L (137-145)
[2016-07-28] MEDS: VENLAFAXINE HCL ER 150 MG CAP PO SCH ×2 (08:02→20:08)
[2016-07-28] MEDS: PANTOPRAZOLE 40 MG TABLET PO SCH ×2 (08:12→17:32)
[2016-07-28] MEDS: CHOLECALCIFEROL 1,000 UNIT TAB PO SCH (08:13)
[2016-07-28] MEDS: NICOTINE 14MG/24HR PATCH TRANSDERM SCH (08:13)
[2016-07-28] MEDS: CALCIUM CARB-VIT D 500MG-200UN 1 EACH TAB PO SCH (08:13)
[2016-07-28] MEDS: IPRATROPIUM-ALBUTEROL 3 ML NEB INHALATION SCH ×4 (09:17→20:29)
[2016-07-28] MEDS: SYMBICORT 80-4.5 MCG INHALER INHALATION PRN ×2 (09:19→20:29)
--- NOTE | 2016-07-28 10:23 | P.PN ---
Subjective A 55-year-old female being seen on rounds this morning currently is sitting up in bed continues to report having abdominal pain patient states the abdominal pain mostly in the lower abdomen does feel a little better than admission . Patient reports no nausea vomiting. Patient currently is nothing by mouth for planned procedure by interventional radiology this morning to undergo drainage of the abscess with cultures to be obtained the fluid. Patient was seen by Dr. Anand surgical service on the . The surgeon did have a discussion with the patient the plan of care. CAT scan of the abdomen pelvis diverticulitis of the intestine with perforation and abscess. Surgery recommended a surgical intervention with a temporary colostomy may be needed. Patient was requesting an alternative and did agree to have the interventional radiologist do drainage of her abscess patient did not want a surgical intervention at this time Objective - Vital Signs Vital signs: Vital Signs Temp 97.8 F 07/28/16 07:00 Pulse 72 07/28/16 09:31 Resp 15 07/28/16 07:00 BP 126/75 07/28/16 07:00 Pulse Ox 95 07/28/16 07:00 Intake & Output 07/27/16 07/28/16 07/28/16 18:59 06:59 18:59 Intake Total 1410 Balance 1410 Intake: Intake, IV Titration 1050 Amount Sodium Chloride 0.9% 1, 1050 000 ml @ 150 mls/hr IV . Q6H40M [facility] Rx#:[id number] Oral 360 Other: Voiding Method Toilet Toilet Toilet # Voids 1 - Exam GENERAL APPEARANCE: 55-year-old female patient is alert, oriented, in no acute distress. Sitting up in bed talkative states abdominal pain slightly improved but continues to persist states the pain is in the lower abdomen points to the suprapubic area as to the reference point VITAL SIGNS: Reviewed HEENT: Head is normocephalic and atraumatic. Pupils are equal and reactive. The nares are patent. Oropharynx is clear without lesions. NECK: Supple without lymphadenopathy. Traches midline. HEART: S1, S2. Regular rate and rhythm. Denying chest pain no murmur noted LUNGS: Essentially clear with adequate air movement bilaterally no wheezing noted on room air sats are 95% ABDOMEN: Soft, slight tenderness bilateral lower abdomen, nondistended with good bowel sounds. No peritoneal signs. No palpable organomegaly or masses. No stool states urinating no difficulty reports no nausea no vomiting EXTREMITIES: Normal skin color and turgor. No cyanosis, rash, ulceration, clubbing or edema. Radial pedal pulses are 2/4 bilaterally. NEUROLOGICAL: No focal deficits. Strength and sensation are grossly intact. - Labs CBC & Chem 7: 07/28/16 06:51 07/28/16 06:51 Labs: Abnormal Lab Results - Last 24 Hours (Table) 07/27/16 07/28/16 07/28/16 Range/Units 20:20 06:51 06:51 WBC 15.0 H (3.8-10.6) k/uL Neutrophils # 13.4 H (1.3-7.7) k/uL Lymphocytes # 0.9 L (1.0-4.8) k/uL Glucose 124 H (74-99) mg/dL POC Glucose (mg/dL) 137 H (75-99) mg/dL Calcium 8.2 L (8.4-10.2) mg/dL Assessment and Plan Plan: (1) Diverticulitis of intestine with perforation and abscess Status: Acute (2) COPD exacerbation Status: Acute (3) Adrenal insufficiency due to corticosteroid withdrawal Status: Acute (4) Hypotension Status: Acute (5) Bilateral lower abdominal pain Status: Acute (6) Obesity (BMI 30.0-34.9) Status: Chronic (7) History of colon cancer Status: Chronic (8) S/P right colectomy Status: Chronic (9) History of incisional hernia repair Status: Chronic (10) Peritoneal adhesion Status: Chronic (11) Intra-abdominal abscess Status: Acute (12) Leukocytosis Status: Acute Plan Patient is scheduled today by interventional radiology to undergo abdominal drainage of the abscess with possible drain placement Pain control Continue IV antibiotic Flagyl and Zosyn as ordered Continue current aerosol bronchodilators DVT and GI prophylaxis hopesurgical will continue to follow the surgical course closely addressing surgical issues as they arise will follow Defer to medicine service for medical management to address medical issues The above dictated assessment and findings were discussed with Dr. Kika Webber and the plan of care have been dictated as directed. Josefa Bansal nurse practitioner acting as a scribe for Dr. Noe
[2016-07-28 12:08] LABS: Glucose,Whole Blood 130 mg/dL (75-99)
[2016-07-28] MEDS: FLUCONAZOLE 100 MG TAB PO SCH (13:55)
[2016-07-28] MEDS: MULTIVITAMINS, THERA 1 EACH TAB PO SCH (13:55)
[2016-07-28] MEDS: THEOPHYLLINE 24 HOUR 300 MG CAP.ER.24H PO SCH (13:55)
--- NOTE | 2016-07-28 14:19 | P.PN ---
Progress Note - Text I was notified by interventional radiology that fluid collection is small enough and does not need a drain. Patient's white count has improved and her abdominal pain has improved. Per patient's request, she has elected for transfer of surgical care. I will be signing off.
--- NOTE | 2016-07-28 16:01 | P.GSCN ---
History of Present Illness Consult date: 07/28/16 Reason for Consult: Diverticulitis History of present illness: This a 55-year-old female who is admitted to Dr. Abad service. Patient was admitted on the 07/26/2016. She had complaints of severe abdominal pain. Patient underwent CAT scan found have evidence of a diverticular abscess. Patient states that Dr. Noe was recommending a colostomy. She requested a second opinion for myself. The patient states her pain is improved. Past Medical History Past Medical History: COPD, Hyperlipidemia Additional Past Medical History / Comment(s): COPD, migraines, colon cancer, depression History of Any Multi-Drug Resistant Organisms: None Reported Past Surgical History: Appendectomy, Bowel Resection, Cholecystectomy, Hernia Repair, Tonsillectomy Additional Past Surgical History / Comment(s): re-hernia repair Past Anesthesia/Blood Transfusion Reactions: No Reported Reaction Additional Past Anesthesia/Blood Transfusion Reaction / Comm: spinal anesthesia Past Psychological History: Anxiety, Depression Smoking Status: Former smoker Past Alcohol Use History: Rare Past Drug Use History: None Reported - Past Family History Mother Family Medical History: No Reported History Father Family Medical History: COPD, Coronary Artery Disease (CAD) Medications and Allergies Home Medications Medication Instructions Recorded Confirmed Type Albuterol Nebulized [Ventolin 2.5 mg INHALATION RT-Q6H PRN 09/15/14 07/26/16 History Nebulized] Budesonide/Formoterol Fumarate 2 puff INHALATION RT-BID PRN 09/15/14 07/26/16 History [Symbicort 80-4.5 Mcg Inhaler] Calcium Carb-Vit D 500Mg-200Un 1 tab PO DAILY 09/15/14 07/26/16 History [Oscal 500+D] Cholecalciferol [Vitamin D3] 2,000 unit PO DAILY 09/15/14 07/26/16 History Ezetimibe/Simvastatin [Vytorin 1 tab PO HS 09/15/14 07/26/16 History 10-10 mg Tablet] HYDROcodone/APAP 7.5-325MG [[place] 1 tab PO Q4H PRN 09/15/14 07/26/16 History 7.5-325] Multivitamins, Thera [Multivitamin] 1 tab PO DAILY@1200 09/15/14 07/26/16 History Butalb/Acetaminophen/Caffeine 1 - 2 cap PO Q4HR PRN 07/19/15 07/26/16 History [Fioricet 50-300-40 mg Capsule] Topiramate [Topamax] 50 mg PO BID PRN 07/19/15 07/26/16 History Albuterol Inhaler [Ventolin Hfa 1 - 2 puff INHALATION RT-Q6H PRN 10/21/15 History Inhaler] ALPRAZolam [Xanax] 0.25 mg PO QID PRN 07/16/16 07/26/16 History Venlafaxine HCl [Effexor XR] 150 mg PO BID 07/16/16 07/26/16 History predniSONE See Taper PO DAILY 07/26/16 07/26/16 History Allergies Allergy/AdvReac Type Severity Reaction Status Date / Time No Known Allergies Allergy Verified 07/26/16 16:16 Surgical - Exam Vital Signs Temp Pulse Resp BP Pulse Ox 98.3 F 63 20 99/59 100 07/26/16 15:22 07/26/16 15:22 07/26/16 15:22 07/26/16 15:22 07/26/16 15:22 - General well developed, no distress - Eyes PERRL - ENT normal pinna - Neck no masses - Respiratory normal expansion - Cardiovascular Rhythm: regular - Abdomen The patient's abdomen soft. There is some minimal tenderness left lower quadrant. There is no rebound or guarding. There is no evidence of peritoneal signs. Abdomen: soft Results - Labs 07/28/16 06:51 07/28/16 06:51 Abnormal Lab Results - Last 24 Hours (Table) 07/27/16 07/28/16 07/28/16 Range/Units 20:20 06:51 06:51 WBC 15.0 H (3.8-10.6) k/uL Neutrophils # 13.4 H (1.3-7.7) k/uL Lymphocytes # 0.9 L (1.0-4.8) k/uL Glucose 124 H (74-99) mg/dL POC Glucose (mg/dL) 137 H (75-99) mg/dL Calcium 8.2 L (8.4-10.2) mg/dL 07/28/16 Range/Units 11:54 WBC (3.8-10.6) k/uL Neutrophils # (1.3-7.7) k/uL Lymphocytes # (1.0-4.8) k/uL Glucose (74-99) mg/dL POC Glucose (mg/dL) 130 H (75-99) mg/dL Calcium (8.4-10.2) mg/dL Diabetes panel 07/28/16 Range/Units 06:51 Sodium 138 (137-145) mmol/L Potassium 4.9 (3.5-5.1) mmol/L Chloride 101 (98-107) mmol/L Carbon Dioxide 27 (22-30) mmol/L BUN 15 (7-17) mg/dL Creatinine 0.65 (0.52-1.04) mg/dL Glucose 124 H (74-99) mg/dL Calcium 8.2 L (8.4-10.2) mg/dL Calcium panel 07/28/16 Range/Units 06:51 Calcium 8.2 L (8.4-10.2) mg/dL Pituitary panel 07/28/16 Range/Units 06:51 Sodium 138 (137-145) mmol/L Potassium 4.9 (3.5-5.1) mmol/L Chloride 101 (98-107) mmol/L Carbon Dioxide 27 (22-30) mmol/L BUN 15 (7-17) mg/dL Creatinine 0.65 (0.52-1.04) mg/dL Glucose 124 H (74-99) mg/dL Calcium 8.2 L (8.4-10.2) mg/dL Adrenal panel 07/28/16 Range/Units 06:51 Sodium 138 (137-145) mmol/L Potassium 4.9 (3.5-5.1) mmol/L Chloride 101 (98-107) mmol/L Carbon Dioxide 27 (22-30) mmol/L BUN 15 (7-17) mg/dL Creatinine 0.65 (0.52-1.04) mg/dL Glucose 124 H (74-99) mg/dL Calcium 8.2 L (8.4-10.2) mg/dL - Imaging CT scan - pelvis: report reviewed (There is thickening of the sigmoid colon suggestive of diverticulitis. There is a small abscess between the colon and uterus. There is known evidence of free air.) Assessment and Plan Plan: Diverticulitis. Patient will be managed with IV antibiotics. She appears to be improving. I do not believe she needs surgical intervention at this point. He will be closely observed.
[2016-07-28 17:07] LABS: Glucose,Whole Blood 121 mg/dL (75-99)
[2016-07-28] MEDS: EZETIMIBE 10 MG TAB PO SCH (20:07)
[2016-07-28] MEDS: ATORVASTATIN 10 MG TAB PO SCH (20:08)
[2016-07-28 22:26] LABS: Glucose,Whole Blood 108 mg/dL (75-99)
[2016-07-29] MEDS: ZOLPIDEM 5 MG TAB PO PRN ×2 (00:13→23:29)
[2016-07-29] MEDS: metroNIDAZOLE-NS PMX 500 MG in SALINE 1 100ML.BAG IVPB SCH ×3 (05:28→21:41)
--- NOTE | 2016-07-29 06:21 | PN ---
DATE OF SERVICE: 07/28/2016 PRESENTING COMPLAINT: Abdominal pain. INTERVAL HISTORY: This is a patient who was just in the hospital with COPD exacerbation presented with acute diverticulitis with possibly a localized abscess. Patient requested a surgeon to be ( ). Dr. Caceres has taken care of her before. Abdominal pain is somewhat better. Breathing is stable. She is on antibiotics. Review of systems done for constitutional, cardiovascular, GI, pulmonary; relevant findings as above. Current medications are reviewed that include IV Flagyl and IV Zosyn. On examination, afebrile, pulse of 93, respirations 16, blood pressure 126/66, pulse ox 93% on room air. GENERAL APPEARANCE: Sitting up, not in distress. EYES: Pupils equal. Conjunctivae normal. NECK: JVD not raised. Mass not palpable. RESPIRATORY: Effort ( ). LUNGS: Improved air entry. CARDIOVASCULAR: First and second sounds normal. No edema. ABDOMEN: Decreased lower abdominal tenderness. No guarding or rigidity. PSYCHIATRY: Alert and oriented x3. Mood and affect anxious appearing. INVESTIGATIONS: White count 15, hemoglobin 12.2. Potassium 4.9. BUN and creatinine normal. Cultures are negative until now. ASSESSMENT: 1. Possible acute sigmoid diverticulitis with localized abscess. Currently not for any surgical intervention per Dr. Caceres. 2. History of colon cancer with a right hemicolectomy. 3. Chronic obstructive pulmonary disease in an ex-smoker. 4. Presbyesophagus diagnosed recently. 5. Anxiety and depression, not otherwise specified. 6. Obesity, body mass index of 35.1. 7. Possible adrenal insufficiency from patient recently being on steroids and sepsis, on hydrocortisone. PLAN: Continue current medication and treatment plan. Care was discussed with the patient. Patient's blood pressure is doing better. Will cut back the dose of hydrocortisone tomorrow.
[2016-07-29] MEDS: NICOTINE 14MG/24HR PATCH TRANSDERM SCH (06:59)
[2016-07-29] MEDS: SODIUM CHLORIDE 0.9% 1,000 ML IV SCH ×3 (07:00→21:44)
[2016-07-29] MEDS: HYDROCORTISONE SUCCINATE 100 MG/2 ML VIAL IV SCH ×3 (07:03→23:13)
[2016-07-29] MEDS: NICOTINE POLACRILEX 2 MG GUM BUCCAL SCH ×4 (07:03→21:18)
[2016-07-29] MEDS: CHOLECALCIFEROL 1,000 UNIT TAB PO SCH (07:03)
[2016-07-29] MEDS: CALCIUM CARB-VIT D 500MG-200UN 1 EACH TAB PO SCH (07:04)
[2016-07-29] MEDS: PANTOPRAZOLE 40 MG TABLET PO SCH ×2 (07:04→16:26)
[2016-07-29] MEDS: THEOPHYLLINE 24 HOUR 300 MG CAP.ER.24H PO SCH (07:04)
[2016-07-29] MEDS: VENLAFAXINE HCL ER 150 MG CAP PO SCH ×2 (07:05→21:19)
[2016-07-29] MEDS: PIPERACILLIN-TAZOBACTAM 3.375 GM in DEXTROSE/WATER 1 50ML.BAG IVPB SCH ×3 (07:17→23:19)
[2016-07-29] MEDS: HYDROmorphone 1 MG/ML 1 ML SYRINGE IV PRN ×4 (07:18→21:22)
[2016-07-29] MEDS: IPRATROPIUM-ALBUTEROL 3 ML NEB INHALATION SCH ×4 (07:21→20:54)
[2016-07-29] MEDS: SYMBICORT 80-4.5 MCG INHALER INHALATION PRN (07:21)
[2016-07-29] MEDS: FLUCONAZOLE 100 MG TAB PO SCH (07:40)
[2016-07-29 07:59] LABS: Basophils % (A) 0 %; CH 28.7; CHCM 31.6; Eosinophils % (A) 0 %; HCT 38.9 % (34.0-46.0); HDW 2.34; HGB 12.2 gm/dL (11.4-16.0); Luc # (Auto) 0.13; Luc % (Auto) 1; Lymphocytes # (A) 1.3 k/uL (1.0-4.8); Lymphocytes % (A) 10 %; MCH 28.7 pg (25.0-35.0); MCHC 31.5 g/dL (31.0-37.0); MCV 91.4 fL (80.0-100.0); Mean Platelet Volume 7.1; Monocytes # (A) 0.7 k/uL (0-1.0); Monocytes % (A) 5 %; Neutrophils # (A) 10.7 k/uL (1.3-7.7); Neutrophils % (A) 83 %; RBC 4.26 m/uL (3.80-5.40); RDW 13.4 % (11.5-15.5); WBC 12.9 k/uL (3.8-10.6); WBC (Perox) 13.62
[2016-07-29 08:05] LABS: ALT 77 U/L (9-52); AST 32 U/L (14-36); Alkaline Phosphatase 70 U/L (38-126); Anion Gap 10 mmol/L; Blood Urea Nitrogen 17 mg/dL (7-17); Calcium 8.3 mg/dL (8.4-10.2); Carbon Dioxide 28 mmol/L (22-30); Chloride 103 mmol/L (98-107); Glucose 128 mg/dL (74-99); Non-African American GFR(MDRD) >60 (>60 ml/min/1.73 sqM); Potassium 4.1 mmol/L (3.5-5.1); Sodium 141 mmol/L (137-145); Total Bilirubin 0.7 mg/dL (0.2-1.3); Total Protein 5.4 g/dL (6.3-8.2)
[2016-07-29 08:25] LABS: Glucose,Whole Blood 132 mg/dL (75-99)
[2016-07-29 11:54] LABS: Glucose,Whole Blood 110 mg/dL (75-99)
--- NOTE | 2016-07-29 12:10 | P.PN ---
Subjective Principal diagnosis: Diverticulitis, possible abscess between uterus and sigmoid colon. Patient is a 55-year-old white female admitted with diverticulitis and possible abscess between the uterus and sigmoid colon. Patient reports improvement in abdominal pain. Denies nausea or vomiting. Passing flatus without bowel movement. Urinating without difficulty. Reports hunger. Afebrile. WBC decreased to 12.9. Objective - Vital Signs Vital signs: Vital Signs Temp 96.3 F L 07/29/16 07:00 Pulse 60 07/29/16 08:00 Resp 18 07/29/16 08:00 BP 132/76 07/29/16 07:00 Pulse Ox 96 07/29/16 07:00 Intake & Output 07/28/16 07/29/16 07/29/16 18:59 06:59 18:59 Intake Total 1250 Balance 1250 Weight 82.554 kg Intake: Intake, IV Titration 1250 Amount Piperacillin-Tazobactam 3 50 .375 gm In Dextrose/Water 1 50ml.bag @ 12.5 mls/hr IVPB Q8HR [facility] Rx#: [id number] Sodium Chloride 0.9% 1, 1200 000 ml @ 150 mls/hr IV . Q6H40M [facility] Rx#:[id number] Oral 0 Other: Voiding Method Toilet Toilet Toilet # Voids 2 1 - Exam GENERAL: Pt awake and alert, well-appearing, well-nourished, and in no acute distress. LUNGS: Breath sounds clear to auscultation bilaterally. No wheezes, rales, or rhonchi. HEART: Heart S1, S2, no S3 or S4. Regular rate and rhythm. No murmurs, rubs or gallops. ABDOMEN: Soft, moderate tenderness to lower abdomen, mildly distended, active bowel sounds. No guarding, no rebound. No masses or organomegaly appreciated. NEUROLOGICAL: Pt oriented x 3. - Labs CBC & Chem 7: 07/29/16 07:10 07/29/16 07:10 Labs: Abnormal Lab Results - Last 24 Hours (Table) 07/28/16 07/28/16 07/28/16 Range/Units 11:54 17:05 22:12 WBC (3.8-10.6) k/uL Neutrophils # (1.3-7.7) k/uL Glucose (74-99) mg/dL POC Glucose (mg/dL) 130 H 121 H 108 H (75-99) mg/dL Calcium (8.4-10.2) mg/dL ALT (9-52) U/L Total Protein (6.3-8.2) g/dL Albumin (3.5-5.0) g/dL 07/29/16 07/29/16 07/29/16 Range/Units 07:10 07:10 08:24 WBC 12.9 H (3.8-10.6) k/uL Neutrophils # 10.7 H (1.3-7.7) k/uL Glucose 128 H (74-99) mg/dL POC Glucose (mg/dL) 132 H (75-99) mg/dL Calcium 8.3 L (8.4-10.2) mg/dL ALT 77 H (9-52) U/L Total Protein 5.4 L (6.3-8.2) g/dL Albumin 2.9 L (3.5-5.0) g/dL 07/29/16 Range/Units 11:52 WBC (3.8-10.6) k/uL Neutrophils # (1.3-7.7) k/uL Glucose (74-99) mg/dL POC Glucose (mg/dL) 110 H (75-99) mg/dL Calcium (8.4-10.2) mg/dL ALT (9-52) U/L Total Protein (6.3-8.2) g/dL Albumin (3.5-5.0) g/dL Assessment and Plan Plan: Impression: 1. Diverticulitis. 2. Small abscess between colon and uterus, non-drainable per radiologist. Plan: 1. Advance diet to clear liquids. Continue IV antibiotics. Continue supportive treatment and pain management. Continue follow with medical team. The above impression and plan have been discussed and directed by Dr. Caceres. Pb SHELTON acting as scribe for Dr. Caceres.
[2016-07-29] MEDS: MULTIVITAMINS, THERA 1 EACH TAB PO SCH (12:16)
[2016-07-29 17:56] LABS: Glucose,Whole Blood 86 mg/dL (75-99)
[2016-07-29] MEDS: EZETIMIBE 10 MG TAB PO SCH (21:18)
[2016-07-29] MEDS: ATORVASTATIN 10 MG TAB PO SCH (21:19)
[2016-07-30 00:10] LABS: Glucose,Whole Blood 190 mg/dL (75-99)
[2016-07-30] MEDS: HYDROmorphone 1 MG/ML 1 ML SYRINGE IV PRN ×6 (01:13→21:13)
[2016-07-30] MEDS: NICOTINE POLACRILEX 2 MG GUM BUCCAL SCH ×6 (01:13→21:13)
[2016-07-30] MEDS: SODIUM CHLORIDE 0.9% 1,000 ML IV SCH ×3 (05:51→21:12)
[2016-07-30] MEDS: metroNIDAZOLE 500 MG TAB PO SCH ×3 (05:51→21:12)
[2016-07-30 06:09] LABS: Glucose,Whole Blood 137 mg/dL (75-99)
[2016-07-30 07:08] LABS: Basophils % (A) 0 %; CH 28.6; CHCM 31.6; Eosinophils % (A) 0 %; HCT 36.2 % (34.0-46.0); HDW 2.29; HGB 11.4 gm/dL (11.4-16.0); Luc # (Auto) 0.15; Luc % (Auto) 1; Lymphocytes # (A) 1.6 k/uL (1.0-4.8); Lymphocytes % (A) 13 %; MCH 28.7 pg (25.0-35.0); MCHC 31.6 g/dL (31.0-37.0); MCV 90.8 fL (80.0-100.0); Mean Platelet Volume 6.7; Monocytes # (A) 0.6 k/uL (0-1.0); Monocytes % (A) 5 %; Neutrophils # (A) 10.4 k/uL (1.3-7.7); Neutrophils % (A) 81 %; RBC 3.98 m/uL (3.80-5.40); RDW 13.3 % (11.5-15.5); WBC 12.7 k/uL (3.8-10.6); WBC (Perox) 12.84
--- NOTE | 2016-07-30 07:20 | PN ---
DATE OF SERVICE: 07/29/2016 PRESENTING COMPLAINT: Abdominal pain. INTERVAL HISTORY: This is patient who presented with acute diverticulitis with possibly localized abscess, complains of lower abdominal pain. No bowel movement. Patient is n.p.o., sitting up in her bed. Breathing is stable. Review of systems done for constitutional, cardiovascular, GI, pulmonary; relevant findings as above. Current medications are reviewed that include IV Flagyl and Zosyn. On examination, temperature 97.4, pulse 85, respiration 18, blood pressure 109/77, pulse of 93%. GENERAL APPEARANCE: Sitting up in bed, not in distress. EYES: Pupils equal, conjunctivae normal. NECK: JVD not raised. Mass not palpable. Respiratory effort normal. LUNGS: Fair air entry. CARDIOVASCULAR: First and second sounds normal. ABDOMEN: Lower abdominal tenderness. No guarding or rigidity. PSYCHIATRY: Alert and oriented x3. Mood and affect was normal. INVESTIGATIONS: White count 12.9, potassium 4.1. ASSESSMENT: 1. Acute sigmoid diverticulitis with low grade abscess, slow to respond. 2. History of colon cancer with a right hemicolectomy. 3. Chronic obstructive pulmonary disease in an ex-smoker. 4. Presbyesophagus diagnosed recently. 5. Anxiety, depression, no otherwise specified. 6. Obesity, body mass index of 35.1. 7. Possible adrenal insufficiency on presentation from stress brought on by sepsis. PLAN: Care was discussed with the patient. Continue current medication and treatment plan. Continue with hydrocortisone. Will follow.
[2016-07-30 07:22] LABS: ALT 76 U/L (9-52); AST 30 U/L (14-36); Alkaline Phosphatase 65 U/L (38-126); Anion Gap 9 mmol/L; Blood Urea Nitrogen 11 mg/dL (7-17); Calcium 8.3 mg/dL (8.4-10.2); Carbon Dioxide 29 mmol/L (22-30); Chloride 104 mmol/L (98-107); Glucose 135 mg/dL (74-99); Non-African American GFR(MDRD) >60 (>60 ml/min/1.73 sqM); Potassium 3.8 mmol/L (3.5-5.1); Sodium 142 mmol/L (137-145); Total Bilirubin 0.5 mg/dL (0.2-1.3); Total Protein 5.1 g/dL (6.3-8.2)
[2016-07-30] MEDS: PANTOPRAZOLE 40 MG TABLET PO SCH ×2 (07:37→17:36)
[2016-07-30] MEDS: HYDROCORTISONE SUCCINATE 100 MG/2 ML VIAL IV SCH ×2 (07:37→15:56)
[2016-07-30] MEDS: SYMBICORT 80-4.5 MCG INHALER INHALATION PRN ×2 (08:26→20:02)
[2016-07-30] MEDS: IPRATROPIUM-ALBUTEROL 3 ML NEB INHALATION SCH ×4 (08:26→20:02)
[2016-07-30] MEDS: CHOLECALCIFEROL 1,000 UNIT TAB PO SCH (09:56)
[2016-07-30] MEDS: CALCIUM CARB-VIT D 500MG-200UN 1 EACH TAB PO SCH (09:56)
[2016-07-30] MEDS: NICOTINE 14MG/24HR PATCH TRANSDERM SCH (09:57)
[2016-07-30] MEDS: FLUCONAZOLE 100 MG TAB PO SCH (09:57)
[2016-07-30] MEDS: VENLAFAXINE HCL ER 150 MG CAP PO SCH ×2 (09:57→21:13)
[2016-07-30] MEDS: THEOPHYLLINE 24 HOUR 300 MG CAP.ER.24H PO SCH (09:57)
[2016-07-30] MEDS: PIPERACILLIN-TAZOBACTAM 3.375 GM in DEXTROSE/WATER 1 50ML.BAG IVPB SCH ×2 (10:44→15:57)
[2016-07-30] MEDS ORDERED: RX INFO: IV CONTRAST WAS GIVEN 1 EACH MISC MISCELLANE PRN (11:17)
[2016-07-30 11:34] LABS: Glucose,Whole Blood 129 mg/dL (75-99)
[2016-07-30] MEDS: IOHEXOL 350 MG/ML 25 ML BOTTLE (ORAL USE) PO PRN ×2 (11:38→12:41)
[2016-07-30] MEDS: MULTIVITAMINS, THERA 1 EACH TAB PO SCH (11:38)
--- NOTE | 2016-07-30 11:42 | P.PN ---
Subjective Principal diagnosis: Diverticulitis, possible abscess between uterus and sigmoid colon. Patient is a 55-year-old white female admitted with diverticulitis and possible abscess between the uterus and sigmoid colon. Patient complains of intermittent sharp pain to her lower pelvic area treated and had 10. Denies nausea or vomiting. Passing flatus without bowel movement. Urinating without difficulty. Reports hunger. Tolerating liquid diet. Afebrile. WBC decreased from 12.9 to 12.7. Objective - Vital Signs Vital signs: Vital Signs Temp 97.5 F L 07/30/16 07:00 Pulse 60 07/30/16 08:36 Resp 17 07/30/16 07:47 BP 145/83 07/30/16 07:00 Pulse Ox 93 L 07/30/16 07:00 Intake & Output 07/29/16 07/30/16 07/30/16 18:59 06:59 18:59 Intake Total 1900 1800 800 Balance 1900 1800 800 Weight 82.554 kg Intake: IV 300 1800 Sodium Chloride 0.9% 1, 300 1800 000 ml @ 150 mls/hr IV . Q6H40M [facility] Rx#:[id number] Oral 1600 800 Other: Voiding Method Toilet Toilet Toilet # Voids 1 - Exam GENERAL: Pt awake and alert, well-appearing, well-nourished, and in no acute distress. LUNGS: Breath sounds clear to auscultation bilaterally. No wheezes, rales, or rhonchi. HEART: Heart S1, S2, no S3 or S4. Regular rate and rhythm. No murmurs, rubs or gallops. ABDOMEN: Soft, moderate tenderness to pelvic area, mildly distended, active bowel sounds. No guarding, no rebound. No masses or organomegaly appreciated. NEUROLOGICAL: Pt oriented x 3. - Labs CBC & Chem 7: 07/30/16 06:39 07/30/16 06:39 Labs: Abnormal Lab Results - Last 24 Hours (Table) 07/29/16 07/29/16 07/30/16 Range/Units 11:52 23:56 06:06 WBC (3.8-10.6) k/uL Neutrophils # (1.3-7.7) k/uL Glucose (74-99) mg/dL POC Glucose (mg/dL) 110 H 190 H 137 H (75-99) mg/dL Calcium (8.4-10.2) mg/dL ALT (9-52) U/L Total Protein (6.3-8.2) g/dL Albumin (3.5-5.0) g/dL 07/30/16 07/30/16 07/30/16 Range/Units 06:39 06:39 11:22 WBC 12.7 H (3.8-10.6) k/uL Neutrophils # 10.4 H (1.3-7.7) k/uL Glucose 135 H (74-99) mg/dL POC Glucose (mg/dL) 129 H (75-99) mg/dL Calcium 8.3 L (8.4-10.2) mg/dL ALT 76 H (9-52) U/L Total Protein 5.1 L (6.3-8.2) g/dL Albumin 2.7 L (3.5-5.0) g/dL Assessment and Plan Plan: Impression: 1. Diverticulitis. 2. Small abscess between colon and uterus, non-drainable per radiologist. Plan: 1. Repeat CT of pelvis with IV and oral contrast. Continue clear liquid diet until result of computed tomography scan available. Continue IV antibiotics. Continue supportive treatment and pain management. Continue follow with medical team. Repeat CBC in a.m. The above impression and plan have been discussed and directed by Dr. Caceres. Pb SHELTON acting as scribe for Dr. Caceres.
--- NOTE | 2016-07-30 14:28 | CT ---
EXAMINATION TYPE: CT pelvis w con DATE OF EXAM: 07/30/2016 2:14 PM COMPARISON: CT abdomen and pelvis 26 July 2016 HISTORY: Patient complains of constipation and diverticulitis. CT DLP: 1233 mGycm Automated exposure control for dose reduction was used. TECHNIQUE: Helical acquisition of images from the lung bases through the pelvis have been completed. CONTRAST: Performed with Oral Contrast and with IV Contrast, patient injected with 100 mL of Omnipaque 300. FINDINGS: AORTA: No significant abnormality is appreciated. LIVER/GB: Visualized portions of the liver stable PANCREAS: Not included SPLEEN: Not included ADRENALS: Not included KIDNEYS: Right kidney shows atrophy at the upper pole, there is scarring and stone formation, there m ay have been prior infarction, multiple calcifications are present, there are at least 8 calcificatio ns present, the largest measures only 4 to 5 mm and are not obstructed. REPRODUCTIVE ORGANS: The uterus shows a similar appearance, there is some air density in the left adn exal region measuring approximately 3 cm in greatest dimension which is thought to communicate with a fluid collection posterior to the uterus, there is some fluid present posterior to the uterus in the cul-de-sac with some hyperdense dependent portion, some localized air, overall the collection measur es 5 cm x 4.3 cm x 2.3 cm suggesting a leak of contrast possibly due to diverticulitis locally. BOWEL: Postop changes are present, there is extensive sigmoid colon diverticulosis. Colonic wall thi ckening is also present. Additional small fluid collection present cephalad to the bladder measuring approximately 2.7 cm x 1.4 cm. Some luminal hypodensity also present at this level. FREE AIR: No Free Air visible ASCITES: None visible. PELVIC ADENOPATHY: None visualized. RETROPERITONEAL ADENOPATHY: No Retroperitoneal Adenopathy visible. URINARY BLADDER: No significant abnormality is seen. OSSEOUS STRUCTURES: Stable IMPRESSION: FINDINGS LIKELY REPRESENT A LOCALIZED PERFORATION WITH LEAK INTO THE CUL-DE-SAC AND CEPHALAD TO THE B LADDER ADJACENT TO THE UTERUS. EXTENSIVE DIVERTICULOSIS. ADDITIONAL FINDINGS ABOVE.
[2016-07-30 17:55] LABS: Glucose,Whole Blood 127 mg/dL (75-99)
[2016-07-30] MEDS: ATORVASTATIN 10 MG TAB PO SCH (21:12)
[2016-07-30] MEDS: EZETIMIBE 10 MG TAB PO SCH (21:13)
[2016-07-31] MEDS: HYDROmorphone 1 MG/ML 1 ML SYRINGE IV PRN ×6 (00:52→22:02)
[2016-07-31] MEDS: HYDROCORTISONE SUCCINATE 100 MG/2 ML VIAL IV SCH ×3 (00:54→14:54)
[2016-07-31] MEDS: SODIUM CHLORIDE 0.9% 1,000 ML IV SCH ×4 (00:58→21:48)
[2016-07-31] MEDS: PIPERACILLIN-TAZOBACTAM 3.375 GM in DEXTROSE/WATER 1 50ML.BAG IVPB SCH ×3 (01:00→15:10)
[2016-07-31] MEDS: NICOTINE POLACRILEX 2 MG GUM BUCCAL SCH ×6 (01:00→20:13)
[2016-07-31 01:42] LABS: Glucose,Whole Blood 137 mg/dL (75-99)
[2016-07-31] MEDS: ZOLPIDEM 5 MG TAB PO PRN ×2 (01:58→23:15)
[2016-07-31] MEDS: metroNIDAZOLE 500 MG TAB PO SCH ×3 (06:08→20:14)
[2016-07-31 06:42] LABS: Glucose,Whole Blood 134 mg/dL (75-99)
[2016-07-31] MEDS: CHOLECALCIFEROL 1,000 UNIT TAB PO SCH (07:44)
[2016-07-31] MEDS: THEOPHYLLINE 24 HOUR 300 MG CAP.ER.24H PO SCH (07:44)
[2016-07-31] MEDS: FLUCONAZOLE 100 MG TAB PO SCH (07:44)
[2016-07-31] MEDS: PANTOPRAZOLE 40 MG TABLET PO SCH ×2 (07:44→18:10)
[2016-07-31] MEDS: VENLAFAXINE HCL ER 150 MG CAP PO SCH ×2 (07:44→20:14)
[2016-07-31] MEDS: NICOTINE 14MG/24HR PATCH TRANSDERM SCH (07:45)
[2016-07-31] MEDS: CALCIUM CARB-VIT D 500MG-200UN 1 EACH TAB PO SCH (07:45)
[2016-07-31] MEDS: IPRATROPIUM-ALBUTEROL 3 ML NEB INHALATION SCH ×4 (07:52→19:18)
[2016-07-31] MEDS: SYMBICORT 80-4.5 MCG INHALER INHALATION PRN ×2 (07:52→19:18)
[2016-07-31 08:32] LABS: ALT 79 U/L (9-52); AST 34 U/L (14-36); Alkaline Phosphatase 62 U/L (38-126); Anion Gap 11 mmol/L; Blood Urea Nitrogen 6 mg/dL (7-17); Calcium 8.4 mg/dL (8.4-10.2); Carbon Dioxide 27 mmol/L (22-30); Chloride 104 mmol/L (98-107); Glucose 137 mg/dL (74-99); Non-African American GFR(MDRD) >60 (>60 ml/min/1.73 sqM); Potassium 3.7 mmol/L (3.5-5.1); Sodium 142 mmol/L (137-145); Total Bilirubin 0.4 mg/dL (0.2-1.3); Total Protein 5.4 g/dL (6.3-8.2)
[2016-07-31 09:07] LABS: Basophils % (A) 0 %; CH 28.3; CHCM 30.8; Eosinophils % (A) 0 %; HCT 38.2 % (34.0-46.0); HDW 2.36; Hypochromasia Slight; Luc # (Auto) 0.11; Luc % (Auto) 1; Lymphocytes # (A) 1.8 k/uL (1.0-4.8); Lymphocytes % (A) 11 %; MCH 29.1 pg (25.0-35.0); MCHC 31.5 g/dL (31.0-37.0); MCV 92.2 fL (80.0-100.0); Mean Platelet Volume 6.5; Monocytes # (A) 0.7 k/uL (0-1.0); Monocytes % (A) 5 %; Neutrophils # (A) 13.1 k/uL (1.3-7.7); Neutrophils % (A) 83 %; RBC 4.14 m/uL (3.80-5.40); RDW 13.4 % (11.5-15.5); WBC 15.7 k/uL (3.8-10.6); WBC (Perox) 17.08
[2016-07-31] MEDS: MULTIVITAMINS, THERA 1 EACH TAB PO SCH (12:11)
[2016-07-31 12:21] LABS: Glucose,Whole Blood 90 mg/dL (75-99)
--- NOTE | 2016-07-31 12:27 | P.PN ---
Progress Note - Text The patient still has complaints of pain. Her white count has increased to 15.7 today. Her CAT scan performed yesterday she still shows evidence of a fluid collection in the pelvis. On exam her vital signs appear stable. Her abdomen soft. Her is tenderness in the lower quadrant. Patient will be switched back to ice chips only. She will have labs repeated tomorrow. If she still has evidence of sepsis she may be taken to surgery
[2016-07-31] MEDS: ALPRAZolam 0.25 MG TAB PO PRN (12:29)
--- NOTE | 2016-07-31 15:31 | PN ---
DATE OF SERVICE: 07/30/2016 PRESENTING COMPLAINT: Abdominal pain. INTERVAL HISTORY: This is a patient who presented with acute diverticulitis and possible localized abscess. Seen by me yesterday on 07/30/16. I am doing the dictation today. Patient still having some lower abdominal pain. Been on clear liquids. Dr. Caceres has ordered a CAT scan. Patient drinking the contrast. Review of systems done for constitutional, cardiovascular, GI, pulmonary; relevant findings as above. Current medications are reviewed. On examination, temperature 97.5, pulse 51, respirations 17, blood pressure 140/83, pulse ox 93% on room air. GENERAL APPEARANCE: Sitting in bed, not in distress. EYES: Pupils equal. Conjunctivae normal. NECK: JVD not raised. Mass not palpable. RESPIRATORY: Effort normal. Lungs are clear. CARDIOVASCULAR: First and second sounds normal. No edema. ABDOMEN: Lower abdominal tenderness. No guarding or rigidity. PSYCHIATRY: Alert and oriented x3. Mood and affect normal. INVESTIGATIONS: White count 12.7, hemoglobin 9.4. Potassium 3.8. ASSESSMENT: 1. Acute sigmoid diverticulitis with localized abscess, slow to respond. 2. History of colon cancer with right hemicolectomy. 3. Chronic obstructive pulmonary disease in an ex-smoker. 4. presbyesophagus diagnosed recently. 5. Anxiety, depression not otherwise specified. 6. Obesity; body mass index 35.1. 7. Possibly adrenal insufficiency on presentation from stress brought on by sepsis. PLAN: Talked with the patient. Will see what the CAT scan shows. Continue with antibiotics. Supportive care.
--- NOTE | 2016-07-31 15:38 | PN ---
DATE OF SERVICE: 07/30/2016 PRESENTING COMPLAINT: Abdominal pain. INTERVAL HISTORY: This patient was seen by me yesterday morning on 07/30/2016. Doing dictation today. Patient presented with acute diverticulitis and possible localized abscess, still having lower abdominal pain this morning. Surgery has ordered a CT scan. Patient drinking the contrast. Breathing is stable. No bowel movement. Review of systems done for constitutional, cardiovascular, GI, pulmonary; relevant findings as above. Current medications are reviewed that include IV Zosyn. On examination, temperature 97.5, pulse 51, respiratory rate 17, blood pressure 145/53, pulse ox 93% on room air. GENERAL APPEARANCE:
[2016-07-31 17:59] LABS: Glucose,Whole Blood 130 mg/dL (75-99)
--- NOTE | 2016-07-31 20:05 | PN ---
DATE OF SERVICE: 07/31/2016 PRESENTING COMPLAINT: Abdominal pain. INTERVAL HISTORY: This patient presented with acute diverticulitis with possible localized abscess, having lower abdominal pain still present. Some trouble when she sits down. Did have a CT scan. I discussed with Dr. Caceres. Does not think it is any different. Patient did have a bowel movement. Review of systems done for constitutional, cardiovascular, GI, pulmonary; relevant findings as above. Current medications are reviewed and include IV Zosyn. On examination, temperature 97, pulse 16, blood pressure 150/81, pulse ox 94%. GENERAL APPEARANCE: Sitting up somewhat, uncomfortable. EYES: Pupils equal. Conjunctivae normal. NECK: JVD not raised. Mass not palpable. RESPIRATORY: Effort normal. LUNGS: Fair air entry. CARDIOVASCULAR: First and second sounds normal. No edema. ABDOMEN: Lower abdominal tenderness. No guarding or rigidity. PSYCHIATRY: Alert and oriented x3. Mood and affect normal. INVESTIGATIONS: White count 15.7. Increased neutrophil. Potassium 3.7. Pelvis CT scan shows extensive diverticulosis with a localized perforation with leak in the cul-de-sac close to the bladder ASSESSMENT: 1. Acute sigmoid diverticulitis with localized perforation and localized abscess in the cul-de-sac, clinically slow to respond. Still has white count. 2. History of colon cancer with right hemicolectomy. 3. Chronic obstructive pulmonary disease in an ex-smoker. 4. Presbyesophagus diagnosed recently. 5. Anxiety, depressive, not otherwise specified. 6. Obesity; body mass index 35.1. 7. Renal insufficiency on presentation from recent steroids. PLAN: I discussed with Dr. Caceres. At this point, he wants to hold off any surgical intervention. Follow with IV Zosyn and Flagyl. I told the nurse to cut back to ice chips from clear liquids.
[2016-07-31] MEDS: ATORVASTATIN 10 MG TAB PO SCH (20:13)
[2016-07-31] MEDS: EZETIMIBE 10 MG TAB PO SCH (20:14)
[2016-08-01] MEDS: HYDROmorphone 1 MG/ML 1 ML SYRINGE IV PRN ×4 (00:40→09:47)
[2016-08-01] MEDS: HYDROCORTISONE SUCCINATE 100 MG/2 ML VIAL IV SCH ×4 (00:40→23:45)
[2016-08-01] MEDS: NICOTINE POLACRILEX 2 MG GUM BUCCAL SCH ×6 (00:42→22:19)
[2016-08-01] MEDS: PIPERACILLIN-TAZOBACTAM 3.375 GM in DEXTROSE/WATER 1 50ML.BAG IVPB SCH ×4 (00:43→23:45)
[2016-08-01 01:02] LABS: Glucose,Whole Blood 122 mg/dL (75-99)
[2016-08-01] MEDS: SODIUM CHLORIDE 0.9% 1,000 ML IV SCH ×3 (02:46→15:03)
[2016-08-01] MEDS: metroNIDAZOLE 500 MG TAB PO SCH ×2 (06:25→15:02)
[2016-08-01 06:30] LABS: Glucose,Whole Blood 114 mg/dL (75-99)
[2016-08-01] MEDS: PANTOPRAZOLE 40 MG TABLET PO SCH ×2 (07:33→16:42)
[2016-08-01] MEDS: NICOTINE 14MG/24HR PATCH TRANSDERM SCH (07:36)
[2016-08-01] MEDS: CHOLECALCIFEROL 1,000 UNIT TAB PO SCH (07:36)
[2016-08-01] MEDS: CALCIUM CARB-VIT D 500MG-200UN 1 EACH TAB PO SCH (07:36)
[2016-08-01 08:17] LABS: Basophils % (A) 0 %; CH 28.6; CHCM 31.4; Eosinophils % (A) 0 %; HDW 2.36; HGB 12.2 gm/dL (11.4-16.0); Luc # (Auto) 0.19; Luc % (Auto) 1; Lymphocytes # (A) 2.3 k/uL (1.0-4.8); Lymphocytes % (A) 14 %; MCH 28.6 pg (25.0-35.0); MCHC 31.3 g/dL (31.0-37.0); MCV 91.5 fL (80.0-100.0); Mean Platelet Volume 6.1; Monocytes # (A) 0.7 k/uL (0-1.0); Monocytes % (A) 4 %; Neutrophils # (A) 13.2 k/uL (1.3-7.7); Neutrophils % (A) 80 %; RBC 4.27 m/uL (3.80-5.40); RDW 13.6 % (11.5-15.5); WBC 16.5 k/uL (3.8-10.6); WBC (Perox) 17.29
[2016-08-01 08:36] LABS: ALT 86 U/L (9-52); AST 47 U/L (14-36); Alkaline Phosphatase 70 U/L (38-126); Anion Gap 11 mmol/L; Blood Urea Nitrogen 6 mg/dL (7-17); Calcium 8.6 mg/dL (8.4-10.2); Carbon Dioxide 33 mmol/L (22-30); Chloride 101 mmol/L (98-107); Glucose 92 mg/dL (74-99); Non-African American GFR(MDRD) >60 (>60 ml/min/1.73 sqM); Potassium 3.5 mmol/L (3.5-5.1); Sodium 145 mmol/L (137-145); Total Bilirubin 0.5 mg/dL (0.2-1.3); Total Protein 5.5 g/dL (6.3-8.2)
[2016-08-01] MEDS: IPRATROPIUM-ALBUTEROL 3 ML NEB INHALATION SCH ×4 (08:38→20:05)
[2016-08-01] MEDS ORDERED: IV FLUID CONTINUATION 1,000 ML IV ONE (10:57)
[2016-08-01] MEDS ORDERED: LIDOCAINE 1% 20 ML VIAL (10MG/ML) FOR IV START INTRADERMA ONE (11:15)
[2016-08-01] MEDS ORDERED: LACTATED RINGERS 1,000 ML IV ONE ×2 (11:15→13:45)
[2016-08-01] MEDS: THEOPHYLLINE 24 HOUR 300 MG CAP.ER.24H PO SCH (11:23)
[2016-08-01] MEDS: MULTIVITAMINS, THERA 1 EACH TAB PO SCH (11:23)
[2016-08-01] MEDS: FLUCONAZOLE 100 MG TAB PO SCH (11:23)
[2016-08-01] MEDS: VENLAFAXINE HCL ER 150 MG CAP PO SCH ×2 (11:23→22:20)
[2016-08-01] MEDS ORDERED: fentaNYL (PF) 50 MCG/ML 2 ML AMP IV ONE (11:30)
[2016-08-01] MEDS ORDERED: MIDAZOLAM 2 MG/2 ML VIAL IVP ONE (11:30)
[2016-08-01] MEDS ORDERED: DEXAMETHASONE SOD PHOSPHATE 10 MG/ML 1 ML VIAL IV ONE (12:01)
[2016-08-01] MEDS ORDERED: ONDANSETRON 4 MG/2 ML VIAL IVP PRN (12:01)
[2016-08-01] MEDS ORDERED: HYDROCORTISONE SUCCINATE 100 MG/2 ML VIAL IV STA (12:02)
[2016-08-01] MEDS ORDERED: ONDANSETRON 4 MG/2 ML VIAL IVP ONE (12:15)
[2016-08-01] MEDS ORDERED: NALOXONE 0.4 MG/ML 1 ML VIAL IV PRN ×2 (12:21→15:36)
--- NOTE | 2016-08-01 12:30 | P.PN ---
Progress Note - Text The patient's white count is elevated. It has increased from 15,000 16,000 today. She has complaints of lower pelvic pain. Patient was taken to surgery today for sigmoid colectomy and end colostomy for perforated diverticulitis with failed anabiotic treatment.
[2016-08-01] MEDS ORDERED: HEPARIN SODIUM,PORCINE 5,000 UNIT/ML 1 ML VIAL SQ ONE (12:37)
[2016-08-01] MEDS ORDERED: GLYCOPYRROLATE 0.2 MG/ML 2 ML VIAL ONE (12:41)
[2016-08-01] MEDS ORDERED: SUCCINYLCHOLINE CHLORIDE 100 MG/5 ML SYR IV ONE (12:41)
[2016-08-01] MEDS ORDERED: ROCURONIUM BROMIDE 10 MG/ML 10 ML VIAL IV ONE (12:41)
[2016-08-01] MEDS ORDERED: MIDAZOLAM 2 MG/2 ML VIAL ONE (12:41)
[2016-08-01] MEDS ORDERED: fentaNYL (PF) 50 MCG/ML 2 ML AMP ONE (12:41)
[2016-08-01] MEDS ORDERED: LIDOCAINE 1% INJ 10MG/ML (20 ML MDV) ONE (12:41)
[2016-08-01] MEDS ORDERED: PROPOFOL 10 MG/ML 20 ML VIAL IV ONE (12:41)
[2016-08-01] MEDS ORDERED: NEOSTIGMINE 1 MG/ML 10 ML VIAL ONE (12:41)
[2016-08-01] MEDS ORDERED: BENZOCAINE/MENTHOL LOZENG 1 EACH LOZENGE MUCOUS MEM PRN (13:48)
[2016-08-01] MEDS ORDERED: METOCLOPRAMIDE 5 MG/ML 2 ML VIAL IVP PRN (13:48)
--- NOTE | 2016-08-01 13:54 | P.OP ---
Date of Procedure: 08/01/16 Preoperative Diagnosis: Perforated diverticulitis with abscess Postoperative Diagnosis: Perforated diverticula is with abscess Procedure(s) Performed: Sigmoid colectomy with end colostomy Drainage of abscess Anesthesia: EUGENIO Surgeon: Clemente Caceres Estimated Blood Loss (ml): 50 Pathology: other (Sigmoid colon) Condition: stable Disposition: PACU Description of Procedure: The patient's placed on the operating table in supine position. She received general anesthesia. The patient abdomen was prepped and draped usual sterile fashion. The abdomen was entered through a low midline incision. Patient previous mesh from an incisional hernia repair. The parathyroid was entered. And then the bowel was run down level sigmoid colon.; Was adherent to the lateral pelvic wall. This was bluntly dissected with finger dissection and then the abscess cavity was entered. There was feculent material in the abscess cavity. At this point the proximal sigmoid colon was transected with a GI stapler. And then the distal sigmoid colon was transected with a GI stapler. The mesentery the bowel was divided with the LigaSure device. The abdomen was irrigated. 4 L of irrigation were used to irrigate the abdomen. A BRITTA drain is placed in the abscess cavity and brought through separate stab incision. The colon was then brought out through a suitable spot in the left lower quadrant. The fascia is closed loop #1 PDS suture. This stoma was matured with 3-0 Vicryl. The skin was closed adilia. Several Telfa lilli were placed into the subcutaneous area between skin adilia. Patient top procedure well was sent to recovery in stable condition.
[2016-08-01] MEDS: SODIUM CHLORIDE 0.9% EPIDURAL PRN ×3 (14:08→14:59)
[2016-08-01] MEDS: BUPIVACAINE 0.5% EPIDURAL PRN ×3 (14:08→14:59)
[2016-08-01] MEDS: HYDROMORPHONE EPIDURAL PRN ×3 (14:08→14:59)
[2016-08-01] MEDS: D5-0.45% NACL WITH KCL 20MEQ/L 1,000 ML IV SCH (16:45)
[2016-08-01] MEDS: BUPIVACAINE (PF) 0.5% 50 ML, HYDROmorphone 5 MG in SODIUM CHLORIDE 0.9% 198 ML EPIDURAL PRN (16:46)
[2016-08-01 18:15] LABS: Glucose,Whole Blood 117 mg/dL (75-99)
[2016-08-01] MEDS: ATORVASTATIN 10 MG TAB PO SCH (22:20)
[2016-08-01] MEDS: EZETIMIBE 10 MG TAB PO SCH (22:20)
[2016-08-01] MEDS: metroNIDAZOLE-NS PMX 500 MG in SALINE 1 100ML.BAG IVPB SCH (22:23)
--- NOTE | 2016-08-01 23:02 | PN ---
DATE OF SERVICE: 08/01/2016 PRESENTING COMPLAINT: Colostomy. INTERVAL HISTORY: This patient with acute diverticulitis with possible localized abscess and perforation. Because white count is getting worse, patient taken to the OR today. Patient had a diverting colostomy and a partial resection of the colon was done. Patient was found to have a small ( ) abscess. I discussed with Dr. Caceres. Review of systems done for constitutional, cardiovascular, GI, pulmonary; relevant findings as above. Current medications are reviewed. IV Zosyn. On examination, temperature 97.6, pulse 92, respirations 16, blood pressure 108/59, pulse ox 98% on 6L. GENERAL APPEARANCE: Lying in bed, tired-appearing. EYES: Pupils equal. Conjunctivae normal. NECK: JVD not raised. No mass palpable. RESPIRATORY: Effort normal. LUNGS: Fair air entry. CARDIOVASCULAR: First and second sounds normal. No edema. ABDOMEN: Soft, tender. Colostomy bag in place. PSYCHIATRIC: Alert and oriented x3. Mood and affect were normal. INVESTIGATIONS: White count 16.5, hemoglobin 12.2. Potassium 3.5. ASSESSMENT: 1. Acute sigmoid diverticulitis with perforation and abscess in the cul-de-sac followed by a partial bowel resection and creation of a colostomy. 2. History of colon cancer with right hemicolectomy. 3. Chronic obstructive pulmonary disease in an ex-smoker. 4. Presbyesophagus diagnosed recently. 5. Anxiety, depression, not otherwise specified. 6. Obesity, body mass index of 35.1. 7. Adrenal insufficiency, on presentation, recent steroids. PLAN: Continue current medication and treatment plan. Care was discussed with the patient. Follow.
[2016-08-02 00:02] LABS: Glucose,Whole Blood 124 mg/dL (75-99)
[2016-08-02] MEDS: SODIUM CHLORIDE 0.9% 1,000 ML IV SCH ×4 (05:02→20:16)
[2016-08-02] MEDS: D5-0.45% NACL WITH KCL 20MEQ/L 1,000 ML IV SCH ×4 (05:02→20:18)
[2016-08-02] MEDS: NICOTINE POLACRILEX 2 MG GUM BUCCAL SCH ×6 (05:03→23:15)
[2016-08-02] MEDS: metroNIDAZOLE-NS PMX 500 MG in SALINE 1 100ML.BAG IVPB SCH ×5 (05:43→23:30)
[2016-08-02 05:44] LABS: Glucose,Whole Blood 132 mg/dL (75-99)
[2016-08-02 07:24] LABS: Basophils % (A) 0 %; CH 28.6; CHCM 31.3; Eosinophils % (A) 0 %; HDW 2.36; HGB 11.4 gm/dL (11.4-16.0); Luc # (Auto) 0.12; Luc % (Auto) 1; Lymphocytes # (A) 1.5 k/uL (1.0-4.8); Lymphocytes % (A) 10 %; MCH 29.2 pg (25.0-35.0); MCHC 31.7 g/dL (31.0-37.0); Mean Platelet Volume 6.3; Monocytes # (A) 0.6 k/uL (0-1.0); Monocytes % (A) 4 %; Neutrophils # (A) 13.8 k/uL (1.3-7.7); Neutrophils % (A) 86 %; RBC 3.91 m/uL (3.80-5.40); RDW 13.7 % (11.5-15.5); WBC 16.1 k/uL (3.8-10.6); WBC (Perox) 16.72
[2016-08-02 07:29] LABS: ALT 75 U/L (9-52); AST 28 U/L (14-36); Alkaline Phosphatase 52 U/L (38-126); Anion Gap 7 mmol/L; Blood Urea Nitrogen 11 mg/dL (7-17); Carbon Dioxide 33 mmol/L (22-30); Chloride 99 mmol/L (98-107); Glucose 120 mg/dL (74-99); Non-African American GFR(MDRD) >60 (>60 ml/min/1.73 sqM); Potassium 3.4 mmol/L (3.5-5.1); Sodium 139 mmol/L (137-145); Total Bilirubin 0.4 mg/dL (0.2-1.3); Total Protein 4.5 g/dL (6.3-8.2)
[2016-08-02] MEDS: IPRATROPIUM-ALBUTEROL 3 ML NEB INHALATION SCH ×4 (07:58→19:34)
[2016-08-02] MEDS: PANTOPRAZOLE 40 MG TABLET PO SCH ×2 (08:51→20:15)
[2016-08-02] MEDS: CALCIUM CARB-VIT D 500MG-200UN 1 EACH TAB PO SCH (08:51)
[2016-08-02] MEDS: FLUCONAZOLE 100 MG TAB PO SCH (08:51)
[2016-08-02] MEDS: NICOTINE 14MG/24HR PATCH TRANSDERM SCH (08:51)
[2016-08-02] MEDS: CHOLECALCIFEROL 1,000 UNIT TAB PO SCH (08:51)
[2016-08-02] MEDS: VENLAFAXINE HCL ER 150 MG CAP PO SCH ×2 (08:52→20:15)
[2016-08-02] MEDS: THEOPHYLLINE 24 HOUR 300 MG CAP.ER.24H PO SCH (08:52)
[2016-08-02] MEDS: PIPERACILLIN-TAZOBACTAM 3.375 GM in DEXTROSE/WATER 1 50ML.BAG IVPB SCH ×2 (08:55→18:16)
[2016-08-02] MEDS: HYDROCORTISONE SUCCINATE 100 MG/2 ML VIAL IV SCH ×3 (08:55→23:29)
--- NOTE | 2016-08-02 10:24 | P.PN ---
Progress Note - Text Patient is stable status post Logan's resection. She is awake and alert. Comfortable with analgesia. On examination patient is afebrile vitals are stable. Usual postoperative tenderness. Stoma looks healthy. Labs are noted unremarkable. Stable postoperative course. ReCommendation continued IV fluids close monitoring.
[2016-08-02 12:01] LABS: Glucose,Whole Blood 120 mg/dL (75-99)
--- NOTE | 2016-08-02 13:08 | P.PN ---
Progress Note - Text 08/02 1299 55-year-old female status post open Logan procedure by .patient seen and evaluated this morning for pain control patient has a VAS of 3-4 with the epidural solution running at 10 mL an hour patient has complains of right upper thigh numbness and weakness. We did not decrease rate of infusion because of her pain score I will evaluate the patient in the morning.
[2016-08-02] MEDS: MULTIVITAMINS, THERA 1 EACH TAB PO SCH (15:08)
[2016-08-02] MEDS ORDERED: SODIUM CHLORIDE 0.9% 500 ML IV ONE ×2 (15:25→17:04)
[2016-08-02 17:08] LABS: Glucose,Whole Blood 237 mg/dL (75-99)
[2016-08-02] MEDS: BUPIVACAINE (PF) 0.5% 50 ML, HYDROmorphone 5 MG in SODIUM CHLORIDE 0.9% 198 ML EPIDURAL PRN (17:13)
[2016-08-02 17:31] LABS: Basophils % (A) 0 %; CH 28.7; CHCM 31.4; Eosinophils % (A) 0 %; HCT 33.5 % (34.0-46.0); HDW 2.41; HGB 10.5 gm/dL (11.4-16.0); Luc # (Auto) 0.06; Luc % (Auto) 1; Lymphocytes # (A) 1.6 k/uL (1.0-4.8); Lymphocytes % (A) 13 %; MCH 28.8 pg (25.0-35.0); MCHC 31.3 g/dL (31.0-37.0); MCV 92.1 fL (80.0-100.0); Monocytes # (A) 0.5 k/uL (0-1.0); Monocytes % (A) 4 %; Neutrophils # (A) 10.3 k/uL (1.3-7.7); Neutrophils % (A) 83 %; RBC 3.63 m/uL (3.80-5.40); RDW 13.9 % (11.5-15.5); WBC 12.5 k/uL (3.8-10.6); WBC (Perox) 13.23
[2016-08-02] MEDS: EZETIMIBE 10 MG TAB PO SCH (20:15)
[2016-08-02] MEDS: ATORVASTATIN 10 MG TAB PO SCH (20:15)
[2016-08-02 23:35] LABS: Glucose,Whole Blood 178 mg/dL (75-99)
[2016-08-03] MEDS: PIPERACILLIN-TAZOBACTAM 3.375 GM in DEXTROSE/WATER 1 50ML.BAG IVPB SCH ×3 (01:10→17:17)
[2016-08-03] MEDS: D5-0.45% NACL WITH KCL 20MEQ/L 1,000 ML IV SCH ×3 (06:23→21:21)
[2016-08-03] MEDS: metroNIDAZOLE-NS PMX 500 MG in SALINE 1 100ML.BAG IVPB SCH ×2 (06:25→14:50)
[2016-08-03 06:29] LABS: Glucose,Whole Blood 160 mg/dL (75-99)
[2016-08-03] MEDS: IPRATROPIUM-ALBUTEROL 3 ML NEB INHALATION SCH ×4 (08:38→21:08)
--- NOTE | 2016-08-03 08:47 | PN ---
DATE OF SERVICE: 08/02/2016 PRESENTING COMPLAINT: Pelvic abscess. INTERVAL HISTORY: This patient with ruptured acute diverticulitis, status post colostomy. Pain is better controlled, has not passed any flatus through the colostomy. Pain is controlled. Sitting up in bed, comfortable. Review of systems done for constitutional, cardiovascular, GI, pulmonary; relevant findings as above. Current medications are reviewed and include IV Flagyl and Zosyn. On examination, temperature 97.4, pulse 82, respirations 16, blood pressure 77/42, pulse ox 94% on room air. GENERAL APPEARANCE: Sitting up, comfortable. EYES: Pupils equal. Conjunctivae normal. NECK: JVD not raised. RESPIRATORY: Effort normal. LUNGS: Clear. CARDIOVASCULAR: First and second sounds. No edema. ABDOMEN: Soft, mild tenderness. Colostomy bag in place. PSYCHIATRY: Alert and oriented times. Mood and affect normal. INVESTIGATIONS: White count 12.5, hemoglobin 10.5. ASSESSMENT: 1. Acute sigmoid diverticulitis with perforation abscess in the cul-de-sac followed by partial bowel resection and creation of a colostomy. 2. History of colon cancer with right hemicolectomy. 3. Chronic obstructive pulmonary disease in an ex-smoker. 4. Presbyesophagus diagnosed recently. 5. Anxiety, depression, not otherwise specified. 6. Obesity, body mass index of 35.1. 7. Adrenal insufficiency on presentation from being on recent steroids. PLAN: I will keep the patient on current dose of hydrocortisone, continue with medication and treatment plan. Patient is already getting IV fluids. Patient's cultures are growing enterococcus. Follow.
[2016-08-03] MEDS: NICOTINE POLACRILEX 2 MG GUM BUCCAL SCH ×5 (10:23→23:33)
[2016-08-03] MEDS: PANTOPRAZOLE 40 MG TABLET PO SCH ×2 (10:24→17:21)
[2016-08-03] MEDS: HYDROCORTISONE SUCCINATE 100 MG/2 ML VIAL IV SCH ×2 (10:24→17:20)
[2016-08-03] MEDS: CALCIUM CARB-VIT D 500MG-200UN 1 EACH TAB PO SCH (10:26)
[2016-08-03] MEDS: CHOLECALCIFEROL 1,000 UNIT TAB PO SCH (10:26)
[2016-08-03] MEDS: THEOPHYLLINE 24 HOUR 300 MG CAP.ER.24H PO SCH (10:27)
[2016-08-03] MEDS: NICOTINE 14MG/24HR PATCH TRANSDERM SCH (10:27)
[2016-08-03] MEDS: VENLAFAXINE HCL ER 150 MG CAP PO SCH ×2 (10:27→21:20)
[2016-08-03] MEDS: FLUCONAZOLE 100 MG TAB PO SCH (10:28)
[2016-08-03 11:41] LABS: Glucose,Whole Blood 196 mg/dL (75-99)
[2016-08-03] MEDS: MULTIVITAMINS, THERA 1 EACH TAB PO SCH (12:15)
--- NOTE | 2016-08-03 16:24 | P.PN ---
Progress Note - Text The patient is awake alert in no distress. She is normal. Vitals are good. The abdomen is soft good ostomy looks healthy with minimal flatus. Incision looks good. Impression and plan stable postop Kinza sigmoid resection will start on clear liquid diet.
[2016-08-03 17:01] LABS: Glucose,Whole Blood 159 mg/dL (75-99)
[2016-08-03] MEDS: DAPTOmycin 500 MG in SODIUM CHLORIDE 0.9% 50 ML IV SCH (17:16)
--- NOTE | 2016-08-03 20:41 | P.PN ---
Progress Note - Text 08/03 2099 55-year-old female status post open Logan procedure by . Patient seen this evening, with the epidural solution running at 7 mL an hour. The rate was decreased yesterday from 10 mL an hour to 4 cc an hour because the patient was complaining of numbness in the right thigh. This evening the rate was again up to 7 mL an hour because of pain control and the numbness had decreased just restricted to her upper thigh and hip area. Plan to dc epidural tomorrow morning
[2016-08-03] MEDS: ATORVASTATIN 10 MG TAB PO SCH (21:20)
[2016-08-03] MEDS: EZETIMIBE 10 MG TAB PO SCH (21:20)
[2016-08-03] MEDS: HYDROmorphone 1 MG/ML 1 ML SYRINGE IV PRN (22:50)
[2016-08-04] MEDS: HYDROCORTISONE SUCCINATE 100 MG/2 ML VIAL IV SCH ×4 (00:10→23:46)
[2016-08-04] MEDS: PIPERACILLIN-TAZOBACTAM 3.375 GM in DEXTROSE/WATER 1 50ML.BAG IVPB SCH ×4 (00:11→23:46)
[2016-08-04 00:16] LABS: Glucose,Whole Blood 287 mg/dL (75-99)
[2016-08-04] MEDS: HYDROmorphone 1 MG/ML 1 ML SYRINGE IV PRN ×4 (04:07→21:24)
[2016-08-04] MEDS: D5-0.45% NACL WITH KCL 20MEQ/L 1,000 ML IV SCH ×3 (06:59→21:25)
[2016-08-04] MEDS: PANTOPRAZOLE 40 MG TABLET PO SCH ×2 (07:00→16:45)
[2016-08-04] MEDS: BUTALB/APAP/CAFF 50-325-40MG TAB PO PRN (07:05)
[2016-08-04] MEDS: IPRATROPIUM-ALBUTEROL 3 ML NEB INHALATION SCH ×4 (07:15→20:48)
[2016-08-04] MEDS: SYMBICORT 80-4.5 MCG INHALER INHALATION PRN (07:15)
[2016-08-04] MEDS: INSULIN LISPRO (humaLOG) 300 UNIT/3 ML VIAL SQ SCH ×4 (07:18→21:35)
[2016-08-04 07:23] LABS: Glucose,Whole Blood 135 mg/dL (75-99)
[2016-08-04] MEDS: NICOTINE POLACRILEX 2 MG GUM BUCCAL SCH ×7 (07:49→23:43)
[2016-08-04 07:57] LABS: Basophils % (A) 0 %; CH 28.8; CHCM 31.7; Eosinophils % (A) 0 %; HCT 35.4 % (34.0-46.0); HDW 2.41; HGB 11.1 gm/dL (11.4-16.0); Luc % (Auto) 1; Lymphocytes # (A) 1.3 k/uL (1.0-4.8); Lymphocytes % (A) 11 %; MCH 28.7 pg (25.0-35.0); MCHC 31.5 g/dL (31.0-37.0); MCV 91.3 fL (80.0-100.0); Monocytes # (A) 0.4 k/uL (0-1.0); Monocytes % (A) 3 %; Neutrophils # (A) 9.6 k/uL (1.3-7.7); Neutrophils % (A) 85 %; RBC 3.88 m/uL (3.80-5.40); WBC 11.4 k/uL (3.8-10.6); WBC (Perox) 11.65
[2016-08-04 08:08] LABS: Anion Gap 7 mmol/L; Blood Urea Nitrogen 5 mg/dL (7-17); Carbon Dioxide 28 mmol/L (22-30); Chloride 104 mmol/L (98-107); Glucose 142 mg/dL (74-99); Non-African American GFR(MDRD) >60 (>60 ml/min/1.73 sqM); Potassium 3.7 mmol/L (3.5-5.1); Sodium 139 mmol/L (137-145)
[2016-08-04] MEDS: FLUCONAZOLE 100 MG TAB PO SCH (08:40)
[2016-08-04] MEDS: CHOLECALCIFEROL 1,000 UNIT TAB PO SCH (08:40)
[2016-08-04] MEDS: NICOTINE 14MG/24HR PATCH TRANSDERM SCH (08:41)
[2016-08-04] MEDS: CALCIUM CARB-VIT D 500MG-200UN 1 EACH TAB PO SCH (08:41)
[2016-08-04] MEDS: VENLAFAXINE HCL ER 150 MG CAP PO SCH ×2 (08:41→21:24)
[2016-08-04] MEDS: THEOPHYLLINE 24 HOUR 300 MG CAP.ER.24H PO SCH (08:41)
[2016-08-04] MEDS ORDERED: HYDROcodone/APAP 5-325MG 1 EACH TAB PO PRN ×2 (08:54)
[2016-08-04] MEDS: MULTIVITAMINS, THERA 1 EACH TAB PO SCH (11:01)
[2016-08-04 11:20] LABS: Glucose,Whole Blood 200 mg/dL (75-99)
--- NOTE | 2016-08-04 12:12 | PN ---
DATE OF SERVICE: 08/03/2016 PRESENTING COMPLAINT: Perforated diverticulitis. INTERVAL HISTORY: This is a patient who is status post colostomy for perforated diverticulitis. Pain is better. Did try some clear liquids. Did pass some flatus and some liquids through the colostomy bag. The patient pain control is in place. Review of systems done for constitutional, cardiovascular pulmonary; relevant findings as above. Current medications include IV Flagyl and Zosyn. On examination, temperature 97.9, pulse 82, respirations 16, blood pressure 120/70, pulse ox 95% on room air. GENERAL APPEARANCE: Sitting up, comfortable. EYES: Pupils equal. Conjunctivae normal. NECK: JVD not raised. Mass not palpable. RESPIRATORY: Effort normal. Lungs are clear. CARDIOVASCULAR: First and second sounds normal. No edema. ABDOMEN: Soft, mild tenderness. Colostomy bag in place. A little liquid stool in there. PSYCHIATRY: Alert and oriented x3. Mood and affect normal. INVESTIGATIONS: No blood work from today. ( ) the wound cultures growing enterococcus faecium VRE and enterococcus faecalis. ASSESSMENT: 1. Acute sigmoid diverticulitis with perforation absent in the cul-de-sac followed by partial bowel resection and creation of a colostomy, cultures growing Enterococcus faecalis and enterococcus faecium. 2. History of colon cancer and right hemicolectomy. 3. Chronic obstructive pulmonary disease in an ex-smoker. 4. Presbyesophagus diagnosed recently. 5. Anxiety, depression, not otherwise specified. 6. Obesity, body mass index of 35.1. 7. Adrenal insufficiency on presentation from being on recent steroids. PLAN: Continue current medication and treatment plan. We will add daptomycin. We will get an ID consult for the same. Care was discussed with the patient. Follow.
--- NOTE | 2016-08-04 12:48 | P.PN ---
Progress Note - Text 08/03 0376 55-year-old female status post open Logan procedure. Patient complains of numbness and weakness in the right time, epidural catheter was DC'd last night. I saw her this morning and that her no complains of weakness and numbness in her right thigh.
--- NOTE | 2016-08-04 13:09 | P.PN ---
Subjective Principal diagnosis: Perforated diverticulitis with abscess Patient is a 55-year-old white female admitted with perforated diverticulitis with abscess status post Logan's procedure with sigmoid colectomy and end colostomy with drainage of abscess, postop day #3. Patient is doing well. Sitting up in the chair. Denies chills, fevers, nausea, vomiting, shortness of breath, or chest pain. Incisional pain controlled. Passing flatus with light brown stool in her colostomy bag. Urinating without difficulty. Reports hunger. Tolerating liquid diet. Afebrile. WBC decreased to 11.4. Hemoglobin stable at 11.1. Abdominal wound cultures positive for Enterococcus faecalis and Enterococcus faecium VRE. Objective - Vital Signs Vital signs: Vital Signs Temp 97.4 F L 08/04/16 06:48 Pulse 76 08/04/16 12:24 Resp 16 08/04/16 07:27 BP 156/83 08/04/16 06:48 Pulse Ox 95 08/04/16 07:15 Intake & Output 08/03/16 08/04/16 08/04/16 18:59 06:59 18:59 Intake Total 1021.6 500 800 Output Total 40 1150 1240 Balance 981.6 -650 -440 Intake: Intake, IV Titration 1021.6 Amount Bupivacaine (Pf) 0.5% 50 58.6 ml HYDROmorphone 5 mg In Sodium Chloride 0.9% 198 ml @ Per Protocol EPIDURAL .Q0M PRN Rx#: [id number] D5-0.45% NaCl with KCl 813 20Meq/l 1,000 ml @ 125 mls/hr IV .Q8H B[facility]SON Rx#: [id number] Piperacillin-Tazobactam 3 50 .375 gm In Dextrose/Water 1 50ml.bag @ 12.5 mls/hr IVPB Q8HR BENSON Rx#: [id number] metroNIDAZOLE-NS PMX 500 100 mg In Saline 1 100ml.bag @ 100 mls/hr IVPB Q6HR BENSON Rx#:[id number] Oral 500 800 Output: Drainage 40 100 15 Abdomen 40 100 15 Urine 600 1175 Stool 450 50 Other: Voiding Method Indwelling Catheter Indwelling Catheter Toilet - Exam GENERAL: Pt awake and alert, well-appearing, well-nourished, and in no acute distress. LUNGS: Breath sounds clear to auscultation bilaterally. No wheezes, rales, or rhonchi. HEART: Heart S1, S2, no S3 or S4. Regular rate and rhythm. No murmurs, rubs or gallops. ABDOMEN: Soft, mild incisional tenderness, nondistended, active bowel sounds. No guarding, no rebound. Ostomy pink and viable. Abdominal incision approximated with Telfa lilli between adilia, no cellulitis or purulent drainage. Louie-Andre drain compressed with minimal serosanguineous drainage. NEUROLOGICAL: Pt oriented x 3. - Labs CBC & Chem 7: 08/04/16 07:35 08/04/16 07:35 Labs: Abnormal Lab Results - Last 24 Hours (Table) 08/03/16 08/04/16 08/04/16 Range/Units 16:59 00:14 07:12 WBC (3.8-10.6) k/uL Hgb (11.4-16.0) gm/dL Neutrophils # (1.3-7.7) k/uL BUN (7-17) mg/dL Glucose (74-99) mg/dL POC Glucose (mg/dL) 159 H 287 H 135 H (75-99) mg/dL Calcium (8.4-10.2) mg/dL 08/04/16 08/04/16 08/04/16 Range/Units 07:35 07:35 11:14 WBC 11.4 H (3.8-10.6) k/uL Hgb 11.1 L (11.4-16.0) gm/dL Neutrophils # 9.6 H (1.3-7.7) k/uL BUN 5 L (7-17) mg/dL Glucose 142 H (74-99) mg/dL POC Glucose (mg/dL) 200 H (75-99) mg/dL Calcium 8.0 L (8.4-10.2) mg/dL Microbiology - Last 24 Hours (Table) 08/01/16 13:45 Gram Stain - Final Abdomen Wound Culture - Final Enterococcus faecium VRE Enterococcus faecalis Assessment and Plan Plan: Impression: 1. Perforated diverticulitis with abscess status post sigmoid colectomy with end colostomy and drainage of abscess abscess on 08/01/2016. Plan: 1. Increase diet to full liquids. Continue local wound care. Continue IV antibiotics. Increase activity. Continue supportive treatment and pain management. Continue follow with medical team. The above impression and plan have been discussed and directed by Dr. Caceres. Pb SHELTON acting as scribe for Dr. Caceres.
--- NOTE | 2016-08-04 15:28 | P.CONS ---
History of Present Illness - Reason for Consult Consult date: 08/04/16 VRE in wound culture - History of Present Illness This is a 55-year-old female recent hospitalization for COPD exacerbation. She states she was discharged home and then had a flareup of her diverticulitis which she has not had in many years. She states she went home on Thursday night and she went to [place] and almost immediately she ended up staying in bed for the following 3 days. She came into [facility] emergency center with complaints of abdominal pain and no bowel movement for 5-6 days. CAT scan of the abdomen and pelvis showed just diffuse thickening of the sigmoid colon, collection between uterus and sigmoid colon which may be abscess. Patient was initially seen by Dr. Anand and she recommended surgical intervention at bedtime. Patient was then seen by Dr. Caceres recommended IV antibiotics. A repeat CAT scan of the abdomen on July 30 showed localized perforation with leak into the cul-de-sac and cephalad to bladder adjacent to the uterus. Extensive diverticulosis. Patient went to or on August [address] Gaffney underwent sigmoid colectomy with end colostomy for perforated diverticulitis with abscess. Patient states that her epidural came out last night. Spencer catheter has been removed and she has been urinating on her own without difficulty. She states she is up and ambulating in the hallway without difficulty. She is currently on clear liquid diet hoping that this will be advanced. She does have liquid stool in her colostomy bag. Initial white count was at 33 and currently down to 11.4. She has been afebrile. Blood cultures showing no growth. She is currently on daptomycin and Zosyn. 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 Review of Systems All systems: negative Constitutional: Denies chills, Denies fever Eyes: denies blurred vision, denies pain Ears, nose, mouth and throat: Denies headache, Denies sore throat Cardiovascular: Denies chest pain, Denies shortness of breath Respiratory: Denies cough Gastrointestinal: Reports abdominal pain, Reports constipation, Denies diarrhea , Denies nausea, Denies vomiting Genitourinary: Denies dysuria, Denies hematuria Musculoskeletal: Denies myalgias Integumentary: Denies pruritus, Denies rash Neurological: Denies numbness, Denies weakness Psychiatric: Denies anxiety, Denies depression Endocrine: Denies fatigue, Denies weight change Past Medical History Past Medical History: COPD, Hyperlipidemia Additional Past Medical History / Comment(s): COPD, migraines, colon cancer status post bowel resection without need for chemotherapy or radiation therapy, depression History of Any Multi-Drug Resistant Organisms: None Reported Past Surgical History: Appendectomy, Bowel Resection, Cholecystectomy, Hernia Repair, Tonsillectomy Additional Past Surgical History / Comment(s): re-hernia repair Past Anesthesia/Blood Transfusion Reactions: No Reported Reaction Additional Past Anesthesia/Blood Transfusion Reaction / Comm: spinal anesthesia Past Psychological History: Anxiety, Depression Smoking Status: Former smoker Past Alcohol Use History: Rare Additional Past Alcohol Use History / Comment(s): Patient was a smoker of half a pack per day for 20 years and plans to quit at this time. She is currently using nicotine gum. She denies any medical marijuana, marijuana, street drugs or alcohol use. She lives with her 14-year-old daughter. There are 2 cats and 2 dogs in the home. 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 Past Drug Use History: None Reported - Past Family History Mother Family Medical History: No Reported History Father Family Medical History: COPD, Coronary Artery Disease (CAD) Medications and Allergies Home Medications Medication Instructions Recorded Confirmed Type Albuterol Nebulized [Ventolin 2.5 mg INHALATION RT-Q6H PRN 09/15/14 07/26/16 History Nebulized] Budesonide/Formoterol Fumarate 2 puff INHALATION RT-BID PRN 09/15/14 07/26/16 History [Symbicort 80-4.5 Mcg Inhaler] Calcium Carb-Vit D 500Mg-200Un 1 tab PO DAILY 09/15/14 07/26/16 History [Oscal 500+D] Cholecalciferol [Vitamin D3] 2,000 unit PO DAILY 09/15/14 07/26/16 History Ezetimibe/Simvastatin [Vytorin 1 tab PO HS 09/15/14 07/26/16 History 10-10 mg Tablet] HYDROcodone/APAP 7.5-325MG [[place] 1 tab PO Q4H PRN 09/15/14 07/26/16 History 7.5-325] Multivitamins, Thera [Multivitamin] 1 tab PO DAILY@1200 09/15/14 07/26/16 History Butalb/Acetaminophen/Caffeine 1 - 2 cap PO Q4HR PRN 07/19/15 07/26/16 History [Fioricet 50-300-40 mg Capsule] Topiramate [Topamax] 50 mg PO BID PRN 07/19/15 07/26/16 History Albuterol Inhaler [Ventolin Hfa 1 - 2 puff INHALATION RT-Q6H PRN 10/21/15 History Inhaler] ALPRAZolam [Xanax] 0.25 mg PO QID PRN 07/16/16 07/26/16 History Venlafaxine HCl [Effexor XR] 150 mg PO BID 07/16/16 07/26/16 History predniSONE See Taper PO DAILY 07/26/16 07/26/16 History Allergies Allergy/AdvReac Type Severity Reaction Status Date / Time No Known Allergies Allergy Verified 08/01/16 10:57 Physical Exam Vitals: Vital Signs Temp Pulse Pulse Pulse Resp BP BP 08/04/16 07:29 68 08/04/16 07:27 81 60 16 08/04/16 07:15 64 08/04/16 06:48 97.4 F L 60 16 156/83 08/04/16 02:00 98.3 F 67 18 117/67 08/03/16 21:19 78 08/03/16 21:08 78 08/03/16 20:00 98 F 64 18 116/67 08/03/16 15:12 97.9 F 62 16 126/70 08/03/16 12:16 76 08/03/16 12:07 74 Pulse Ox 08/04/16 07:29 08/04/16 07:27 08/04/16 07:15 95 08/04/16 06:48 96 08/04/16 02:00 95 08/03/16 21:19 08/03/16 21:08 08/03/16 20:00 94 L 08/03/16 15:12 95 08/03/16 12:16 08/03/16 12:07 Intake and Output 08/03/16 08/04/16 08/04/16 22:59 06:59 14:59 Intake Total 500 800 Output Total 480 710 640 Balance 20 -710 160 Intake: Oral 500 800 Output: Drainage 80 60 15 Abdomen 80 60 15 Urine 600 575 Stool 400 50 50 Other: Voiding Method Indwelling Catheter Toilet Gen: This is a 55-year-old female. She is sitting up in bed and appears to be comfortable. She does not appear to be in any distress. HEENT: Head is atraumatic, normocephalic. Pupils equal, round. Sclerae is anicteric. Conjunctiva pink. Mucous members of the mouth are dry. NECK: Supple. No JVD. No lymphadenopathy. No thyromegaly. LUNGS: Clear to auscultation. No wheezes or rhonchi. No intercostal retractions. HEART: Regular rate and rhythm. No murmur. ABDOMEN: Soft. Bowel sounds are present. No masses. Mild tenderness to the right lower quadrant. Ostomy bag has liquid brown stool. BRITTA drain with serosanguineous drainage. EXTREMITIES: No pedal edema. No calf tenderness. Dorsalis pedis +2 bilaterally. NEUROLOGICAL: Patient is awake, alert and oriented x3. Cranial nerves 2 through 12 are grossly intact. Results Results: Laboratory Results WBC 11.4 k/uL (3.8-10.6) H 08/04/16 07:35 RBC 3.88 m/uL (3.80-5.40) 08/04/16 07:35 Hgb 11.1 gm/dL (11.4-16.0) L 08/04/16 07:35 Hct 35.4 % (34.0-46.0) 08/04/16 07:35 MCV 91.3 fL (80.0-100.0) 08/04/16 07:35 MCH 28.7 pg (25.0-35.0) 08/04/16 07:35 MCHC 31.5 g/dL (31.0-37.0) 08/04/16 07:35 RDW 14.0 % (11.5-15.5) 08/04/16 07:35 Plt Count 280 k/uL (150-450) 08/04/16 07:35 Neutrophils % 85 % 08/04/16 07:35 Lymphocytes % 11 % 08/04/16 07:35 Monocytes % 3 % 08/04/16 07:35 Eosinophils % 0 % 08/04/16 07:35 Basophils % 0 % 08/04/16 07:35 Neutrophils # 9.6 k/uL (1.3-7.7) H 08/04/16 07:35 Lymphocytes # 1.3 k/uL (1.0-4.8) 08/04/16 07:35 Monocytes # 0.4 k/uL (0-1.0) 08/04/16 07:35 Eosinophils # 0.0 k/uL (0-0.7) 08/04/16 07:35 Basophils # 0.0 k/uL (0-0.2) 08/04/16 07:35 Hypochromasia Slight 07/31/16 07:34 PT 10.0 sec (9.0-12.0) 07/27/16 15:20 INR 1.0 (<1.1) 07/27/16 15:20 Sodium 139 mmol/L (137-145) 08/04/16 07:35 Potassium 3.7 mmol/L (3.5-5.1) 08/04/16 07:35 Chloride 104 mmol/L (98-107) 08/04/16 07:35 Carbon Dioxide 28 mmol/L (22-30) 08/04/16 07:35 Anion Gap 7 mmol/L 08/04/16 07:35 BUN 5 mg/dL (7-17) L 08/04/16 07:35 Creatinine 0.59 mg/dL (0.52-1.04) 08/04/16 07:35 Est GFR (MDRD) Af Amer >60 (>60 ml/min/1.73 sqM) 08/04/16 07:35 Est GFR (MDRD) Non-Af >60 (>60 ml/min/1.73 sqM) 08/04/16 07:35 Glucose 142 mg/dL (74-99) H 08/04/16 07:35 POC Glucose (mg/dL) 200 mg/dL (75-99) H 08/04/16 11:14 POC Glu Rn Triage ID Chanda Crowley 08/04/16 11:14 Plasma Lactic Acid Nadir 0.9 mmol/L (0.7-2.0) 07/26/16 17:15 Calcium 8.0 mg/dL (8.4-10.2) L 08/04/16 07:35 Total Bilirubin 0.4 mg/dL (0.2-1.3) 08/02/16 06:37 AST 28 U/L (14-36) 08/02/16 06:37 ALT 75 U/L (9-52) H 08/02/16 06:37 Alkaline Phosphatase 52 U/L (38-126) 08/02/16 06:37 Total Protein 4.5 g/dL (6.3-8.2) L 08/02/16 06:37 Albumin 2.5 g/dL (3.5-5.0) L 08/02/16 06:37 Amylase 31 U/L (30-110) 07/26/16 16:30 Lipase 34 U/L (23-300) 07/26/16 16:30 Cortisol 8 ug/dL 07/27/16 15:20 Urine Color Yellow 07/26/16 16:30 Urine Appearance Cloudy (Clear) H 07/26/16 16:30 Urine pH 6.0 (5.0-8.0) 07/26/16 16:30 Ur Specific [place] 1.024 (1.001-1.035) 07/26/16 16:30 Urine Protein 2+ (Negative) H 07/26/16 16:30 Urine Glucose (UA) Negative (Negative) 07/26/16 16:30 Urine Ketones 1+ (Negative) H 07/26/16 16:30 Urine Blood Small (Negative) H 07/26/16 16:30 Urine Nitrate Negative (Negative) 07/26/16 16:30 Urine Bilirubin 1+ (Negative) H 07/26/16 16:30 Urine Urobilinogen 2.0 mg/dL (<2.0) 07/26/16 16:30 Ur Leukocyte Esterase Trace (Negative) H 07/26/16 16:30 Urine RBC 5 /hpf (0-5) 07/26/16 16:30 Urine WBC 13 /hpf (0-5) H 07/26/16 16:30 Ur Squamous Epith Cells 26 /hpf (0-4) H 07/26/16 16:30 Urine Bacteria Moderate /hpf (None) H 07/26/16 16:30 Hyaline Casts 6 /lpf (0-2) H 07/26/16 16:30 Urine Mucus Many /hpf (None) H 07/26/16 16:30 CBC & Chem 7: 08/04/16 07:35 08/04/16 07:35 Labs: Abnormal Lab Results - Last 24 Hours (Table) 08/03/16 08/03/16 08/04/16 Range/Units 11:38 16:59 00:14 WBC (3.8-10.6) k/uL Hgb (11.4-16.0) gm/dL Neutrophils # (1.3-7.7) k/uL BUN (7-17) mg/dL Glucose (74-99) mg/dL POC Glucose (mg/dL) 196 H 159 H 287 H (75-99) mg/dL Calcium (8.4-10.2) mg/dL 08/04/16 08/04/16 08/04/16 Range/Units 07:12 07:35 07:35 WBC 11.4 H (3.8-10.6) k/uL Hgb 11.1 L (11.4-16.0) gm/dL Neutrophils # 9.6 H (1.3-7.7) k/uL BUN 5 L (7-17) mg/dL Glucose 142 H (74-99) mg/dL POC Glucose (mg/dL) 135 H (75-99) mg/dL Calcium 8.0 L (8.4-10.2) mg/dL Microbiology - Last 24 Hours (Table) 08/01/16 13:45 Gram Stain - Final Abdomen Wound Culture - Final Enterococcus faecium VRE Enterococcus faecalis Assessment and Plan Plan: This is a 55-year-old female who presented to the hospital with perforated diverticulitis with abscess and is status post sigmoid colectomy with end colostomy. Wound culture is positive for Enterococcus faecium (VRE) and Enterococcus faecalis. She is currently on daptomycin and Zosyn. Antibiotics will be addressed. Continue supportive care. Further recommendations as patient progresses. The above dictated assessment and findings were discussed with Dr. Lloyd. The impression and plan of care have been directed as dictated. Stephie Vuong nurse practitioner acting as scribe for Dr. Lloyd. Time with Patient: Greater than 30
--- NOTE | 2016-08-04 15:30 | CDI ---
In responding to this query, please exercise your independent professional judgment. The [facility] Coding Staff and Clinical Documentation Specialists appreciate your assistance in clarifying documentation, maintaining compliance with coding guidelines, accurately documenting patients condition and capturing severity of illness. The fact that a question is asked does not imply that any particular answer is desired or expected. Communication forms are a method of clarifying documentation and are not made part of the Legal Health Record. Thank you in advance for your clarification. Last Revision, May 2015 Matt Garcia [address] [facility] [place] [address] Documentation Clarification Form Date: 08/04/2016 3:01:00 PM From: Kalyan Roberto, RN, BSN, CDI Admit Date: 07/26/2016 7:00:00 PM Patient Name: Lida Christianson Visit Number: [id number] Dr. Eduar Abad: Per the H&P: "possibility of acute sigmoid diverticulitis w/ localized abscess with possible sepsis POA". On 07/29 your progress note reads "possible adrenal insufficiency from patient recently being on steroids and sepsis on Hydrocortisone- BP better". "Sepsis" has not been documented again in your progress notes. History/Risk Factors: 55 yo female with a history of COPD, colon cancer w/bowel resection present with c/o abdominal pain. Recent COPD exacerbation Clinical Indicators: WBC: 33.6, 20.6, 15.0, 12.9, 12.7, 15.7, 16.5 (07/26-08/01) Lactic acid: 0.9- on admission Blood cultures: no growth after 144 hours abdominal fluid culture: many enterococcus faecium VRE and many enterococcus faecalis Vitals signs on admission: 99/59, 82/51, 63, 20, 98.3, 100% RA Other Clinical Indicators: Treatment: to OR for sigmoid colectomy w/end colostomy on 08/01 ID Consult: pending Antibiotics: Ampicillin, Daptomycin, Zosyn IV Bolus: 2L fluid bolus given in ED Other: Flagyl In your professional opinion, can you please clarify if these findings signify that sepsis was POA or ruled out, if known? Sepsis (POA or ruled out)? Unable to determine Other, please specify If sepsis was POA please: * Identify the (suspected) organism SIRS Criteria: 2 or more of the following may indicate SIRS Temperature < 96.8F(36C) or > 101.0F (38C) Heart Rate > 90 bpm Respiratory Rate > 20 breaths/min or PaCO2 < 32 mmHg White Blood Cell Count > 12,000 or < 4,000 cells/mm3 or > 10% bands Please document in your progress notes and discharge summary in order to capture severity of illness and risk of mortality. Include clinical findings that support your diagnosis. FYI: Press F11 to launch patient chart. ___+__ Place X here if this finding has no clinical significance, is not applicable or if you are not able to provide any additional documentation. BRIGIDAD
[2016-08-04 16:18] LABS: Glucose,Whole Blood 151 mg/dL (75-99)
[2016-08-04] MEDS: DAPTOmycin 500 MG in SODIUM CHLORIDE 0.9% 50 ML IV SCH (16:43)
[2016-08-04] MEDS: HYDROcodone/APAP 7.5-325MG 1 EACH TAB PO PRN ×2 (16:43→23:46)
--- NOTE | 2016-08-04 19:41 | P.CON ---
Consult Note - . Consult date: 08/04/16 Assessment/Plan:: This is a 55-year-old female recent hospitalization for COPD exacerbation. She states she was discharged home and then had a flareup of her diverticulitis which she has not had in many years. She states she went home on Thursday night and she went to [place] and almost immediately she ended up staying in bed for the following 3 days. She came into [facility] emergency center with complaints of abdominal pain and no bowel movement for 5-6 days. CAT scan of the abdomen and pelvis showed just diffuse thickening of the sigmoid colon, collection between uterus and sigmoid colon which may be abscess. Patient was initially seen by Dr. Anand and she recommended surgical intervention at bedtime. Patient was then seen by Dr. Caceres recommended IV antibiotics. A repeat CAT scan of the abdomen on July 30 showed localized perforation with leak into the cul-de-sac and cephalad to bladder adjacent to the uterus. Extensive diverticulosis. Patient went to or on August [address] Gaffney underwent sigmoid colectomy with end colostomy for perforated diverticulitis with abscess. Patient states that her epidural came out last night. Spencer catheter has been removed and she has been urinating on her own without difficulty. She states she is up and ambulating in the hallway without difficulty. She is currently on clear liquid diet hoping that this will be advanced. She does have liquid stool in her colostomy bag. Initial white count was at 33 and currently down to 11.4. She has been afebrile. Blood cultures showing no growth. When the consult was called antibiotic therapy was altered to daptomycin and Zosyn. 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 Please see the consult note as dictated by nurse practitioner Mrs. Stephie Vuong. At this time this pleasant woman seems to be modestly comfortable. She has been ill for quite some time and is getting quite desperate for solid food. Tolerating her full liquids this evening. The leukocytosis is improving significantly. She remains afebrile. We'll continue current intravenous antibiotic therapy. If she clinically improves there will be the possibility of an oral option for discharge with doxycycline and Augmentin. I agree with evaluation, assessment and plan this 60 a nurse practitioner Mrs. Stephie Vuong.
[2016-08-04] MEDS: EZETIMIBE 10 MG TAB PO SCH (21:24)
[2016-08-04] MEDS: ATORVASTATIN 10 MG TAB PO SCH (21:24)
[2016-08-04 21:36] LABS: Glucose,Whole Blood 243 mg/dL (75-99)
--- NOTE | 2016-08-04 22:15 | PN ---
DATE OF SERVICE: 08/04/2016 PRESENTING COMPLAINT: Perforated diverticula. INTERVAL HISTORY: This is a patient status post colostomy for perforated diverticulitis with abscess drained from the cul-de-sac. Patient advanced to full liquid diet. Some stool in the colostomy bag. Has been out of bed. Breathing is stable. Pain pump was taken away last night. Review of systems done for constitutional, cardiovascular, GI, pulmonary; relevant findings as above. Current medications are reviewed and include IV daptomycin and Zosyn. On examination, temperature 97.6, pulse 56, respirations 17, blood pressure 102/55, pulse ox 96% on room air. GENERAL APPEARANCE: Sitting up, comfortable. HEENT: Conjunctivae normal. NECK: JVD not raised. Mass not palpable. RESPIRATORY: Effort normal. LUNGS: Fair air entry. CARDIOVASCULAR: First and second sounds normal. No edema. ABDOMEN: Soft, mild tenderness. Colostomy bag in place, stool is present. PSYCHIATRY: Alert and oriented x3. Mood and affect normal. INVESTIGATIONS: White count 11.4, hemoglobin 11.1, potassium 3.7. Accu-Cheks are noted. ASSESSMENT: 1. Acute sigmoid diverticulitis with perforation with abscess in the cul-de-sac followed by partial bowel resection and creation of colostomy. Cultures growing enterococcus faecalis and enterococcus faecium. 2. History of colon cancer with right hemicolectomy. 3. Chronic obstructive pulmonary disease in an ex-smoker. 4. Presbyesophagus diagnosed recently. 5. Anxiety, depression, not otherwise specified. 6. Adrenal insufficiency on presentation from being on recent steroids. PLAN: Care was discussed with the patient. Continue current medication and treatment plan. Antibiotics have been gone over with Dr. Lloyd. Patient clinically doing better. Will follow.
[2016-08-05] MEDS: HYDROmorphone 1 MG/ML 1 ML SYRINGE IV PRN ×2 (03:01→23:57)
[2016-08-05] MEDS: HYDROcodone/APAP 7.5-325MG 1 EACH TAB PO PRN (05:30)
[2016-08-05] MEDS: D5-0.45% NACL WITH KCL 20MEQ/L 1,000 ML IV SCH (05:34)
[2016-08-05] MEDS: BUTALB/APAP/CAFF 50-325-40MG TAB PO PRN (06:01)
[2016-08-05 06:54] LABS: Glucose,Whole Blood 159 mg/dL (75-99)
[2016-08-05] MEDS: IPRATROPIUM-ALBUTEROL 3 ML NEB INHALATION SCH ×4 (07:49→20:33)
[2016-08-05 07:51] LABS: Basophils % (A) 0 %; CH 28.8; CHCM 31.8; Eosinophils # (A) 0.1 k/uL (0-0.7); Eosinophils % (A) 1 %; HCT 37.2 % (34.0-46.0); HDW 2.49; HGB 11.6 gm/dL (11.4-16.0); Luc # (Auto) 0.12; Luc % (Auto) 1; Lymphocytes # (A) 1.3 k/uL (1.0-4.8); Lymphocytes % (A) 12 %; MCH 28.4 pg (25.0-35.0); MCHC 31.2 g/dL (31.0-37.0); Mean Platelet Volume 6.4; Monocytes # (A) 0.4 k/uL (0-1.0); Monocytes % (A) 3 %; Neutrophils # (A) 8.8 k/uL (1.3-7.7); Neutrophils % (A) 83 %; RBC 4.09 m/uL (3.80-5.40); RDW 13.9 % (11.5-15.5); WBC 10.7 k/uL (3.8-10.6); WBC (Perox) 10.75
[2016-08-05 07:57] LABS: Anion Gap 7 mmol/L; Blood Urea Nitrogen 4 mg/dL (7-17); Calcium 8.3 mg/dL (8.4-10.2); Carbon Dioxide 34 mmol/L (22-30); Chloride 101 mmol/L (98-107); Glucose 153 mg/dL (74-99); Non-African American GFR(MDRD) >60 (>60 ml/min/1.73 sqM); Potassium 3.7 mmol/L (3.5-5.1); Sodium 142 mmol/L (137-145)
[2016-08-05] MEDS: CALCIUM CARB-VIT D 500MG-200UN 1 EACH TAB PO SCH (08:59)
[2016-08-05] MEDS: FLUCONAZOLE 100 MG TAB PO SCH (08:59)
[2016-08-05] MEDS: INSULIN LISPRO (humaLOG) 300 UNIT/3 ML VIAL SQ SCH ×4 (08:59→22:34)
[2016-08-05] MEDS: PANTOPRAZOLE 40 MG TABLET PO SCH ×2 (08:59→18:13)
[2016-08-05] MEDS: THEOPHYLLINE 24 HOUR 300 MG CAP.ER.24H PO SCH (09:00)
[2016-08-05] MEDS: VENLAFAXINE HCL ER 150 MG CAP PO SCH ×2 (09:00→21:01)
[2016-08-05] MEDS: HYDROCORTISONE SUCCINATE 100 MG/2 ML VIAL IV SCH ×3 (09:00→23:57)
[2016-08-05] MEDS: CHOLECALCIFEROL 1,000 UNIT TAB PO SCH (09:00)
[2016-08-05] MEDS: NICOTINE 14MG/24HR PATCH TRANSDERM SCH (09:01)
[2016-08-05] MEDS: NICOTINE POLACRILEX 2 MG GUM BUCCAL SCH ×5 (09:01→23:58)
[2016-08-05] MEDS: PIPERACILLIN-TAZOBACTAM 3.375 GM in DEXTROSE/WATER 1 50ML.BAG IVPB SCH ×3 (09:02→23:57)
[2016-08-05 11:29] LABS: Glucose,Whole Blood 166 mg/dL (75-99)
[2016-08-05 13:33] LABS: Glucose,Whole Blood 155 mg/dL (75-99)
[2016-08-05] MEDS: MULTIVITAMINS, THERA 1 EACH TAB PO SCH (13:43)
--- NOTE | 2016-08-05 14:04 | CT ---
EXAMINATION TYPE: CT brain wo con DATE OF EXAM: 08/05/2016 1:48 PM COMPARISON: NONE HISTORY: Altered mental status, lethargic CT DLP: 1135 mGycm Automated exposure control for dose reduction was used. FINDINGS: There is a small amount of air within the CSF space overlying the frontal and left parietal region. C alvarium appears intact. Due to artifact assessment for small areas of hemorrhage is limited. Grossly no acute intraparenchyma l hemorrhage or mass effect. IMPRESSION: No definite sizable acute intraparenchymal hemorrhage or mass effect. There does appear to be multipl e air bubbles within the CSF space of the left frontal and parietal lobe. This could be iatrogenic. C alvarium intact. Correlate clinically to exclude infectious etiology. Has the patient had a recent ep idural or lumbar puncture?
--- NOTE | 2016-08-05 14:06 | P.PN ---
Subjective Principal diagnosis: Perforated diverticulitis with abscess Patient is a 55-year-old white female admitted with perforated diverticulitis with abscess status post Logan's procedure with sigmoid colectomy and end colostomy with drainage of abscess, postop day #4. Denies chills, fevers, nausea, vomiting, shortness of breath, or chest pain. Incisional pain controlled. Passing flatus with light brown stool in her colostomy bag. Urinating without difficulty. Tolerating full liquid diet. Afebrile. WBC decreased to 10.4. Hemoglobin stable at 11.6. Objective - Vital Signs Vital signs: Vital Signs Temp 97 F L 08/05/16 08:00 Pulse 60 08/05/16 08:00 Resp 16 08/05/16 08:00 BP 164/85 08/05/16 08:00 Pulse Ox 95 08/05/16 08:00 Intake & Output 08/04/16 08/05/16 08/05/16 18:59 06:59 18:59 Intake Total 2640 Output Total 1310 30 30 Balance 1330 -30 -30 Weight 82.554 kg Intake: Oral 2640 Output: Drainage 55 30 30 Abdomen 55 30 30 Urine 1175 Stool 80 Other: Voiding Method Toilet Toilet Toilet # Voids 1 - Exam GENERAL: Pt awake and alert, well-appearing, well-nourished, and in no acute distress. LUNGS: Breath sounds clear to auscultation bilaterally. No wheezes, rales, or rhonchi. HEART: Heart S1, S2, no S3 or S4. Regular rate and rhythm. No murmurs, rubs or gallops. ABDOMEN: Soft, mild incisional tenderness, nondistended, active bowel sounds. No guarding, no rebound. Ostomy pink and viable. Abdominal incision approximated with Telfa lilli between adilia, no cellulitis or purulent drainage. Louie-Andre drain compressed with minimal serosanguineous drainage. NEUROLOGICAL: Pt oriented x 3. - Labs CBC & Chem 7: 08/05/16 07:22 08/05/16 07:22 Labs: Abnormal Lab Results - Last 24 Hours (Table) 08/04/16 08/04/16 08/05/16 Range/Units 16:05 21:34 06:53 WBC (3.8-10.6) k/uL Neutrophils # (1.3-7.7) k/uL Carbon Dioxide (22-30) mmol/L BUN (7-17) mg/dL Glucose (74-99) mg/dL POC Glucose (mg/dL) 151 H 243 H 159 H (75-99) mg/dL Calcium (8.4-10.2) mg/dL 08/05/16 08/05/16 08/05/16 Range/Units 07:22 07:22 11:24 WBC 10.7 H (3.8-10.6) k/uL Neutrophils # 8.8 H (1.3-7.7) k/uL Carbon Dioxide 34 H (22-30) mmol/L BUN 4 L (7-17) mg/dL Glucose 153 H (74-99) mg/dL POC Glucose (mg/dL) 166 H (75-99) mg/dL Calcium 8.3 L (8.4-10.2) mg/dL 08/05/16 Range/Units 13:17 WBC (3.8-10.6) k/uL Neutrophils # (1.3-7.7) k/uL Carbon Dioxide (22-30) mmol/L BUN (7-17) mg/dL Glucose (74-99) mg/dL POC Glucose (mg/dL) 155 H (75-99) mg/dL Calcium (8.4-10.2) mg/dL Microbiology - Last 24 Hours (Table) 08/01/16 13:45 Anaerobic Culture - Final Abdomen Anaerobic Gm Negative Bacilli Assessment and Plan Plan: Impression: 1. Perforated diverticulitis with abscess status post sigmoid colectomy with end colostomy and drainage of abscess abscess on 08/01/2016. Plan: 1. Increase diet to soft foods. Hep-Lock IV. Continue local wound care. Continue IV antibiotics. Increase activity. Continue supportive treatment and pain management. Continue follow with medical team. The above impression and plan have been discussed and directed by Dr. Caceres. Pb SHELTON acting as scribe for Dr. Caceres.
--- NOTE | 2016-08-05 16:14 | P.CNNES ---
History of Present Illness Consult date: 08/05/16 Reason for Consult: Patient with speech impairment and possible stroke. History of Present Illness: This patient is a 55-year-old right-handed white female initially admitted to the hospital on 07/26/2016 for abdominal pain and constipation for 5 days prior to admission. She had undergone a computed tomography scan of the abdomen at the time which revealed diffuse thickening of the sigmoid colon. A repeat computed tomography scan of the abdomen was done on 07/30/2016 and showed evidence of a localized perforation with leak into the cul-de-sac of the bladder adjacent to the uterus. There was extensive diverticulosis seen. Patient was taken to the operating room on August 01 and underwent a sigmoid colectomy with end colostomy for perforation of the diverticulitis and abscess formation. Apparently she had an epidural in place for the surgical intervention. Her epidural came out yesterday apparently. Today she was making good progress on the surgical floor and then showed signs of increased headache as well as slurring of her speech. She states that she was having difficulty getting her words out. This episode lasted about 5-10 minutes in duration and completely resolved this morning. Due to the sudden onset of the symptoms she was sent for a computed tomography scan of the brain today which was reviewed. CAT scan revealed no acute intraparenchymal hemorrhage or stroke. There was evidence of multiple small air bubbles within the CSF space over the left frontal and parietal lobe. This was felt to be iatrogenic. This likely was secondary to her epidural placement for her recent surgery. Patient states that she does have bifrontal headache at this time. The headaches are mild to moderate in degree at this time. Review of the CAT scan films reveals very small air bubbles in 4 different locations. CAT scan also reveals patchy areas of ischemia involving the left cerebellar hemisphere and left posterior fossa. Patient denies any symptoms of slurred speech at this time or focal weakness. We have recommended that an MRI of the brain be done for further evaluation. The patient has been placed on multiple antibiotics as her wound culture did come back positive for enterococcus faecalis. She is being seen closely by infectious disease and is currently on Zosyn and daptomycin. She has remained afebrile. Her temperature today is 97.2. She has no evidence of nuchal rigidity or neck stiffness. Kernig's and Brudzinski signs are negative. The patient is now been transferred to the selective care floor for close monitoring. She is able to answer all questions appropriately. She has had no further recurrence of her speech impairment that occurred this morning. We have reviewed the CAT scan results of the brain today with the patient in detail. The small air bubbles should resolve and be reabsorbed with time. She may require some analgesics as needed for pain management. The patient denies any previous history of stroke or TIA. We have recommended anesthesia be been consult to review this recent CT brain results. We will see if there is any further intervention that they may suggest. At this time the patient is not showing any signs of sepsis or meningitis features at this time. We will confer with infectious disease regarding broad-spectrum antibiotic coverage for the patient due to her recent abscess formation. Overall the patient is more comfortable at this time. We will continue close neurological follow-up for the patient. Her overall prognosis at this time remains guarded. Review of Systems Constitutional: Denies chills, Denies fever Eyes: denies blurred vision, denies pain Ears, nose, mouth and throat: Reports as per HPI Cardiovascular: Denies chest pain, Denies shortness of breath Respiratory: Denies cough Gastrointestinal: Denies abdominal pain, Denies diarrhea, Denies nausea, Denies vomiting Genitourinary: Denies dysuria, Denies hematuria Musculoskeletal: Denies myalgias Integumentary: Denies pruritus, Denies rash Neurological: Reports aphasia, Reports headaches, Denies numbness, Denies weakness Psychiatric: Denies anxiety, Denies depression Endocrine: Denies fatigue, Denies weight change Past Medical History Past Medical History: COPD, Hyperlipidemia Additional Past Medical History / Comment(s): COPD, migraines, colon cancer status post bowel resection without need for chemotherapy or radiation therapy, depression History of Any Multi-Drug Resistant Organisms: VRE Date of last positivie culture/infection: 08/01/16 MDRO Source:: Abdomen Past Surgical History: Appendectomy, Bowel Resection, Cholecystectomy, Hernia Repair, Tonsillectomy Additional Past Surgical History / Comment(s): re-hernia repair Past Anesthesia/Blood Transfusion Reactions: No Reported Reaction Additional Past Anesthesia/Blood Transfusion Reaction / Comment(s): spinal anesthesia Past Psychological History: Anxiety, Depression Smoking Status: Former smoker Past Alcohol Use History: Rare Additional Past Alcohol Use History / Comment(s): Patient was a smoker of half a pack per day for 20 years and plans to quit at this time. She is currently using nicotine gum. She denies any medical marijuana, marijuana, street drugs or alcohol use. She lives with her 14-year-old daughter. There are 2 cats and 2 dogs in the home. 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 Past Drug Use History: None Reported - Past Family History Mother Family Medical History: No Reported History Father Family Medical History: COPD, Coronary Artery Disease (CAD) Medications and Allergies Home Medications Medication Instructions Recorded Confirmed Type Albuterol Nebulized [Ventolin 2.5 mg INHALATION RT-Q6H PRN 09/15/14 07/26/16 History Nebulized] Budesonide/Formoterol Fumarate 2 puff INHALATION RT-BID PRN 09/15/14 07/26/16 History [Symbicort 80-4.5 Mcg Inhaler] Calcium Carb-Vit D 500Mg-200Un 1 tab PO DAILY 09/15/14 07/26/16 History [Oscal 500+D] Cholecalciferol [Vitamin D3] 2,000 unit PO DAILY 09/15/14 07/26/16 History Ezetimibe/Simvastatin [Vytorin 1 tab PO HS 09/15/14 07/26/16 History 10-10 mg Tablet] HYDROcodone/APAP 7.5-325MG [[place] 1 tab PO Q4H PRN 09/15/14 07/26/16 History 7.5-325] Multivitamins, Thera [Multivitamin] 1 tab PO DAILY@1200 09/15/14 07/26/16 History Butalb/Acetaminophen/Caffeine 1 - 2 cap PO Q4HR PRN 07/19/15 07/26/16 History [Fioricet 50-300-40 mg Capsule] Topiramate [Topamax] 50 mg PO BID PRN 07/19/15 07/26/16 History Albuterol Inhaler [Ventolin Hfa 1 - 2 puff INHALATION RT-Q6H PRN 10/21/15 History Inhaler] ALPRAZolam [Xanax] 0.25 mg PO QID PRN 07/16/16 07/26/16 History Venlafaxine HCl [Effexor XR] 150 mg PO BID 07/16/16 07/26/16 History predniSONE See Taper PO DAILY 07/26/16 07/26/16 History Allergies Allergy/AdvReac Type Severity Reaction Status Date / Time No Known Allergies Allergy Verified 08/01/16 10:57 Physical Examination - Vital Signs Vital Signs: Vital Signs Temp Pulse Pulse Pulse Resp BP Pulse Ox 08/05/16 13:30 97.2 F L 76 17 149/84 95 08/05/16 08:00 97 F L 81 60 16 164/85 95 08/05/16 02:06 97.5 F L 63 16 142/83 96 08/04/16 21:24 16 08/04/16 21:18 97.5 F L 70 16 120/71 95 08/04/16 21:06 76 08/04/16 20:48 72 08/04/16 16:19 76 08/04/16 16:09 72 08/04/16 14:42 97.0 F L 78 16 128/80 97 Intake and Output 08/04/16 08/05/16 08/05/16 22:59 06:59 14:59 Intake Total 1040 Output Total 30 30 Balance 1040 -30 -30 Intake: Oral 1040 Output: Drainage 30 30 Abdomen 30 30 Other: Voiding Method Toilet Toilet # Voids 1 - Constitutional General appearance: average body habitus, cooperative - EENT EENT: PERRL, mucous membranes moist - Respiratory Respiratory: lungs clear, normal breath sounds - Cardiovascular Cardiovascular: regular rate, normal S1, normal S2 Extremities: no peripheral edema bilaterally - Gastrointestinal Gastrointestinal: normoactive bowel sounds - Integumentary Integumentary: normal - Neurologic Cranial nerve examination: PERRL, EOMI, VFF, V1/V2/V3 grossly intact, face symmetric, tongue midline, intact gag reflex, intact corneal reflex, normal palatal elevation Speech examination: intact Sensorimotor examination: intact Detailed motor examination: grossly full strength in all extremities Motor examination - right side: 11/07: biceps, triceps, wrist flexion, wrist extension, school librarian, hip flexors, knee extensors, dorsiflexion, toe extension (EHL) , plantarflexion Motor examination - left side: 11/07: biceps, triceps, wrist flexion, wrist extension, school librarian, hip flexors, knee extensors, dorsiflexion, toe extension (EHL) , plantarflexion Detailed sensory examination: intact Reflex and gait examination: intact Reflexes: 1+: ankle, bicep, knee, tricep - Musculoskeletal Musculoskeletal: no pain - Psychiatric Psychiatric: mood/affect appropriate, cooperative Results - Laboratory Findings CBC and BMP: 08/05/16 07:22 08/05/16 07:22 Abnormal Lab Findings: Abnormal Labs 07/27/16 07/27/16 07/28/16 06:42 20:20 06:51 WBC 20.6 H 15.0 H RBC Hgb Hct MCHC 30.8 L Neutrophils # 17.6 H 13.4 H Lymphocytes # 0.9 L Monocytes # 1.2 H Basophils # 0.3 H Potassium Carbon Dioxide BUN Glucose POC Glucose (mg/dL) 137 H Calcium AST ALT Total Protein Albumin 07/28/16 07/28/16 07/28/16 06:51 11:54 17:05 WBC RBC Hgb Hct MCHC Neutrophils # Lymphocytes # Monocytes # Basophils # Potassium Carbon Dioxide BUN Glucose 124 H POC Glucose (mg/dL) 130 H 121 H Calcium 8.2 L AST ALT Total Protein Albumin 07/28/16 07/29/16 07/29/16 22:12 07:10 07:10 WBC 12.9 H RBC Hgb Hct MCHC Neutrophils # 10.7 H Lymphocytes # Monocytes # Basophils # Potassium Carbon Dioxide BUN Glucose 128 H POC Glucose (mg/dL) 108 H Calcium 8.3 L AST ALT 77 H Total Protein 5.4 L Albumin 2.9 L 07/29/16 07/29/16 07/29/16 08:24 11:52 23:56 WBC RBC Hgb Hct MCHC Neutrophils # Lymphocytes # Monocytes # Basophils # Potassium Carbon Dioxide BUN Glucose POC Glucose (mg/dL) 132 H 110 H 190 H Calcium AST ALT Total Protein Albumin 07/30/16 07/30/16 07/30/16 06:06 06:39 06:39 WBC 12.7 H RBC Hgb Hct MCHC Neutrophils # 10.4 H Lymphocytes # Monocytes # Basophils # Potassium Carbon Dioxide BUN Glucose 135 H POC Glucose (mg/dL) 137 H Calcium 8.3 L AST ALT 76 H Total Protein 5.1 L Albumin 2.7 L 07/30/16 07/30/16 07/31/16 11:22 17:53 01:36 WBC RBC Hgb Hct MCHC Neutrophils # Lymphocytes # Monocytes # Basophils # Potassium Carbon Dioxide BUN Glucose POC Glucose (mg/dL) 129 H 127 H 137 H Calcium AST ALT Total Protein Albumin 07/31/16 07/31/16 07/31/16 06:33 07:34 07:34 WBC 15.7 H RBC Hgb Hct MCHC Neutrophils # 13.1 H Lymphocytes # Monocytes # Basophils # Potassium Carbon Dioxide BUN 6 L Glucose 137 H POC Glucose (mg/dL) 134 H Calcium AST ALT 79 H Total Protein 5.4 L Albumin 2.9 L 07/31/16 08/01/16 08/01/16 17:57 00:53 06:28 WBC RBC Hgb Hct MCHC Neutrophils # Lymphocytes # Monocytes # Basophils # Potassium Carbon Dioxide BUN Glucose POC Glucose (mg/dL) 130 H 122 H 114 H Calcium AST ALT Total Protein Albumin 08/01/16 08/01/16 08/01/16 07:10 07:10 18:14 WBC 16.5 H RBC Hgb Hct MCHC Neutrophils # 13.2 H Lymphocytes # Monocytes # Basophils # Potassium Carbon Dioxide 33 H BUN 6 L Glucose POC Glucose (mg/dL) 117 H Calcium AST 47 H ALT 86 H Total Protein 5.5 L Albumin 3.1 L 08/01/16 08/02/16 08/02/16 23:57 05:40 06:37 WBC 16.1 H RBC Hgb Hct MCHC Neutrophils # 13.8 H Lymphocytes # Monocytes # Basophils # Potassium Carbon Dioxide BUN Glucose POC Glucose (mg/dL) 124 H 132 H Calcium AST ALT Total Protein Albumin 08/02/16 08/02/16 08/02/16 06:37 11:57 17:06 WBC RBC Hgb Hct MCHC Neutrophils # Lymphocytes # Monocytes # Basophils # Potassium 3.4 L Carbon Dioxide 33 H BUN Glucose 120 H POC Glucose (mg/dL) 120 H 237 H Calcium 8.0 L AST ALT 75 H Total Protein 4.5 L Albumin 2.5 L 08/02/16 08/02/16 08/03/16 17:21 23:33 06:27 WBC 12.5 H RBC 3.63 L Hgb 10.5 L Hct 33.5 L MCHC Neutrophils # 10.3 H Lymphocytes # Monocytes # Basophils # Potassium Carbon Dioxide BUN Glucose POC Glucose (mg/dL) 178 H 160 H Calcium AST ALT Total Protein Albumin 08/03/16 08/03/16 08/04/16 11:38 16:59 00:14 WBC RBC Hgb Hct MCHC Neutrophils # Lymphocytes # Monocytes # Basophils # Potassium Carbon Dioxide BUN Glucose POC Glucose (mg/dL) 196 H 159 H 287 H Calcium AST ALT Total Protein Albumin 08/04/16 08/04/16 08/04/16 07:12 07:35 07:35 WBC 11.4 H RBC Hgb 11.1 L Hct MCHC Neutrophils # 9.6 H Lymphocytes # Monocytes # Basophils # Potassium Carbon Dioxide BUN 5 L Glucose 142 H POC Glucose (mg/dL) 135 H Calcium 8.0 L AST ALT Total Protein Albumin 08/04/16 08/04/16 08/04/16 11:14 16:05 21:34 WBC RBC Hgb Hct MCHC Neutrophils # Lymphocytes # Monocytes # Basophils # Potassium Carbon Dioxide BUN Glucose POC Glucose (mg/dL) 200 H 151 H 243 H Calcium AST ALT Total Protein Albumin 08/05/16 08/05/16 08/05/16 06:53 07:22 07:22 WBC 10.7 H RBC Hgb Hct MCHC Neutrophils # 8.8 H Lymphocytes # Monocytes # Basophils # Potassium Carbon Dioxide 34 H BUN 4 L Glucose 153 H POC Glucose (mg/dL) 159 H Calcium 8.3 L AST ALT Total Protein Albumin 08/05/16 08/05/16 11:24 13:17 WBC RBC Hgb Hct MCHC Neutrophils # Lymphocytes # Monocytes # Basophils # Potassium Carbon Dioxide BUN Glucose POC Glucose (mg/dL) 166 H 155 H Calcium AST ALT Total Protein Albumin Assessment and Plan (1) TIA (transient ischemic attack) Status: Acute Code(s): G45.9 - TRANSIENT CEREBRAL ISCHEMIC ATTACK, UNSPECIFIED (2) Acute ischemic left middle cerebral artery (MCA) stroke Status: Acute Code(s): I63.512 - CEREB INFRC D/T UNSP OCCLS OR STENOS OF LEFT MID CEREB ART (3) Diverticulitis of intestine with perforation and abscess Status: Acute Code(s): K57.80 - DVTRCLI OF INTEST, PART UNSP, W PERF AND ABSCESS W/O BLEED (4) S/P right colectomy Status: Chronic Code(s): Z90.49 - ACQUIRED ABSENCE OF OTHER SPECIFIED PARTS OF DIGESTIVE TRACT Plan: This patient is a 55-year-old female who was recently diagnosed with a perforated diverticulitis and abscess formation. General surgery has been following the patient and she underwent a sigmoid colectomy and end colostomy for perforation of diverticulum and abscess formation. She underwent surgery on 08/01/2016. Yesterday her epidural came out and she was noted this morning to have episode of headache and slurring of her speech. She was felt to have demonstrated evidence for possible TIA versus stroke. She was sent for a computed tomography scan of the brain today which revealed no evidence of acute stroke or hemorrhage. There was multiple small air bubble seen within the CSF space over the left frontal and parietal lobes. 4 small air bubbles were noted on the CAT scan films. Patient did undergo epidural placement in the epidural was removed recently. This likely is the cause for the finding of multiple air bubbles on the CAT scan of the brain films. We have recommended for anesthesia to see the patient today for follow-up. Her neurological exam otherwise at this time is nonfocal other than she does complain of headache. CAT scan films were reviewed and there is nonspecific ischemic changes noted in the left hemisphere and left cerebellar region of unclear etiology. We have recommended an MRI of the brain for further evaluation. The air bubbles noted on the CAT scan should be reabsorbed spontaneously with time. She may require analgesics for further management. We will obtain the MRI of the brain to rule out any possibility of subacute versus acute stroke. Case was discussed today at length with the patient as well as with Dr. Abad at bedside. We will continue with our current neurological workup. He is in full agreement with our current treatment plan. Her overall prognosis at this time remains very guarded. Time with Patient: Greater than 30
[2016-08-05 17:25] LABS: Glucose,Whole Blood 118 mg/dL (75-99)
--- NOTE | 2016-08-05 17:28 | P.PN ---
Progress Note - Text Anesthesia POD 4. The patient was interviewed and briefly examined, the chart and computed tomography scan was reviewed. It should be noted that the epidural catheter placement pre-operatively was very difficult resulting in a possible dural uvaldo on the first placement attempt at L12. An immediately subsequent attempt at L34 was similarly difficult but successful. In verifying the placement of the epidural needle in the epidural space 2 mL of air was injected rapidly to exclude the needle placement shallow to the epidural space at the L34 level and this may be the source of the minor pneumocephalus noted on CT. As noted by others this should resolve over time. The patient's numbness over the natalie-lateral aspect of her right thigh seems to have resolved and was likely caused by a preferential bathing of the segmental nerves serving this area during the epidural infusion. Finally it is possible that the patient is suffering from a post dural puncture headache given the possibility of a dural uvaldo mentioned above. These invariably resolve on their own with time and I would be hesitant to do anything about this possibility at this time.
[2016-08-05] MEDS ORDERED: levETIRAcetam IV 1,000 MG in SALINE 1 100ML.BAG IVPB STA (17:36)
[2016-08-05] MEDS ORDERED: LORazepam 2 MG/ML SYRINGE ONE (18:07)
[2016-08-05 18:18] LABS: Glucose,Whole Blood 109 mg/dL (75-99)
[2016-08-05] MEDS: DAPTOmycin 500 MG in SODIUM CHLORIDE 0.9% 50 ML IV SCH (18:34)
[2016-08-05] MEDS: ATORVASTATIN 10 MG TAB PO SCH (21:00)
[2016-08-05] MEDS: EZETIMIBE 10 MG TAB PO SCH (21:00)
--- NOTE | 2016-08-05 21:39 | P.PN ---
Subjective Principal diagnosis: VRE in wound culture This is a 55-year-old female recent hospitalization for COPD exacerbation. She states she was discharged home and then had a flareup of her diverticulitis which she has not had in many years. She states she went home on Thursday night and she went to [place] and almost immediately she ended up staying in bed for the following 3 days. She came into [facility] emergency [facility] with complaints of abdominal pain and no bowel movement for 5-6 days. CAT scan of the abdomen and pelvis showed just diffuse thickening of the sigmoid colon, collection between uterus and sigmoid colon which may be abscess. Patient was initially seen by Dr. Anand and she recommended surgical intervention at bedtime. Patient was then seen by Dr. Caceres recommended IV antibiotics. A repeat CAT scan of the abdomen on July 30 showed localized perforation with leak into the cul-de-sac and cephalad to bladder adjacent to the uterus. Extensive diverticulosis. Patient went to or on August [address] Gaffney underwent sigmoid colectomy with end colostomy for perforated diverticulitis with abscess. Patient states that her epidural came out last night. Spencer catheter has been removed and she has been urinating on her own without difficulty. She states she is up and ambulating in the hallway without difficulty. She is currently on clear liquid diet hoping that this will be advanced. She does have liquid stool in her colostomy bag. Initial white count was at 33 and currently down to 11.4. She has been afebrile. Blood cultures showing no growth. She was placed on daptomycin and Zosyn. 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 When she was seen she was feeling better. However today is developed seizures. She been seen by neurology. With history of colon cancer there's concern for potential underlying structural lung disease versus stroke. As discussed with the neurologist she is on many medications that could be linked to seizure. It is quite unlikely the current antibiotics are etiology. Objective - Vital Signs Vital signs: Vital Signs Temp 98.1 F 08/05/16 20:00 Pulse 92 08/05/16 20:38 Resp 18 08/05/16 20:00 BP 147/78 08/05/16 20:00 Pulse Ox 99 08/05/16 20:00 Intake & Output 01/08/05/16 08/06/16 06:59 18:59 06:59 Intake Total 0 Output Total 30 590 Balance -30 -590 Intake: Oral 0 Output: Drainage 30 60 Abdomen 30 60 Urine 500 Stool 30 Other: Voiding Method Toilet Toilet Bedpan # Voids 1 0 - Exam Gen: This is a 55-year-old female. She is sitting up in bed and appears to be comfortable. She does not appear to be in any distress. HEENT: Head is atraumatic, normocephalic. Pupils equal, round. Sclerae is anicteric. Conjunctiva pink. Mucous members of the mouth are dry. NECK: Supple. No JVD. No lymphadenopathy. No thyromegaly. LUNGS: Clear to auscultation. No wheezes or rhonchi. No intercostal retractions. HEART: Regular rate and rhythm. No murmur. ABDOMEN: Soft. Bowel sounds are present. No masses. Mild tenderness to the right lower quadrant. Ostomy bag has liquid brown stool. BRITTA drain with serosanguineous drainage. EXTREMITIES: No pedal edema. No calf tenderness. Dorsalis pedis +2 bilaterally. NEUROLOGICAL: Patient is awake, alert was arousable and answered all simple questions. She recognized me her parents were in the room. Complaint of some mild headache. - Labs CBC & Chem 7: 08/05/16 07:22 08/05/16 07:22 Labs: Abnormal Lab Results - Last 24 Hours (Table) 08/04/16 08/05/16 08/05/16 Range/Units 21:34 06:53 07:22 WBC 10.7 H (3.8-10.6) k/uL Neutrophils # 8.8 H (1.3-7.7) k/uL Carbon Dioxide (22-30) mmol/L BUN (7-17) mg/dL Glucose (74-99) mg/dL POC Glucose (mg/dL) 243 H 159 H (75-99) mg/dL Calcium (8.4-10.2) mg/dL 08/05/16 08/05/16 08/05/16 Range/Units 07:22 11:24 13:17 WBC (3.8-10.6) k/uL Neutrophils # (1.3-7.7) k/uL Carbon Dioxide 34 H (22-30) mmol/L BUN 4 L (7-17) mg/dL Glucose 153 H (74-99) mg/dL POC Glucose (mg/dL) 166 H 155 H (75-99) mg/dL Calcium 8.3 L (8.4-10.2) mg/dL 08/05/16 08/05/16 Range/Units 16:52 18:15 WBC (3.8-10.6) k/uL Neutrophils # (1.3-7.7) k/uL Carbon Dioxide (22-30) mmol/L BUN (7-17) mg/dL Glucose (74-99) mg/dL POC Glucose (mg/dL) 118 H 109 H (75-99) mg/dL Calcium (8.4-10.2) mg/dL Laboratory Results WBC 10.7 k/uL (3.8-10.6) H 08/05/16 07:22 RBC 4.09 m/uL (3.80-5.40) 08/05/16 07:22 Hgb 11.6 gm/dL (11.4-16.0) 08/05/16 07:22 Hct 37.2 % (34.0-46.0) 08/05/16 07:22 MCV 91.0 fL (80.0-100.0) 08/05/16 07:22 MCH 28.4 pg (25.0-35.0) 08/05/16 07:22 MCHC 31.2 g/dL (31.0-37.0) 08/05/16 07:22 RDW 13.9 % (11.5-15.5) 08/05/16 07:22 Plt Count 276 k/uL (150-450) 08/05/16 07:22 Neutrophils % 83 % 08/05/16 07:22 Lymphocytes % 12 % 08/05/16 07:22 Monocytes % 3 % 08/05/16 07:22 Eosinophils % 1 % 08/05/16 07:22 Basophils % 0 % 08/05/16 07:22 Neutrophils # 8.8 k/uL (1.3-7.7) H 08/05/16 07:22 Lymphocytes # 1.3 k/uL (1.0-4.8) 08/05/16 07:22 Monocytes # 0.4 k/uL (0-1.0) 08/05/16 07:22 Eosinophils # 0.1 k/uL (0-0.7) 08/05/16 07:22 Basophils # 0.0 k/uL (0-0.2) 08/05/16 07:22 Hypochromasia Slight 07/31/16 07:34 PT 10.0 sec (9.0-12.0) 07/27/16 15:20 INR 1.0 (<1.1) 07/27/16 15:20 Sodium 142 mmol/L (137-145) 08/05/16 07:22 Potassium 3.7 mmol/L (3.5-5.1) 08/05/16 07:22 Chloride 101 mmol/L (98-107) 08/05/16 07:22 Carbon Dioxide 34 mmol/L (22-30) H 08/05/16 07:22 Anion Gap 7 mmol/L 08/05/16 07:22 BUN 4 mg/dL (7-17) L 08/05/16 07:22 Creatinine 0.60 mg/dL (0.52-1.04) 08/05/16 07:22 Est GFR (MDRD) Af Amer >60 (>60 ml/min/1.73 sqM) 08/05/16 07:22 Est GFR (MDRD) Non-Af >60 (>60 ml/min/1.73 sqM) 08/05/16 07:22 Glucose 153 mg/dL (74-99) H 08/05/16 07:22 POC Glucose (mg/dL) 109 mg/dL (75-99) H 08/05/16 18:15 POC Glu [employer] Jessica Medrano 08/05/16 18:15 Plasma Lactic Acid Nadir 0.9 mmol/L (0.7-2.0) 07/26/16 17:15 Calcium 8.3 mg/dL (8.4-10.2) L 08/05/16 07:22 Total Bilirubin 0.4 mg/dL (0.2-1.3) 08/02/16 06:37 AST 28 U/L (14-36) 08/02/16 06:37 ALT 75 U/L (9-52) H 08/02/16 06:37 Alkaline Phosphatase 52 U/L (38-126) 08/02/16 06:37 Total Protein 4.5 g/dL (6.3-8.2) L 08/02/16 06:37 Albumin 2.5 g/dL (3.5-5.0) L 08/02/16 06:37 Amylase 31 U/L (30-110) 07/26/16 16:30 Lipase 34 U/L (23-300) 07/26/16 16:30 Cortisol 8 ug/dL 07/27/16 15:20 Urine Color Yellow 07/26/16 16:30 Urine Appearance Cloudy (Clear) H 07/26/16 16:30 Urine pH 6.0 (5.0-8.0) 07/26/16 16:30 Ur Specific [place] 1.024 (1.001-1.035) 07/26/16 16:30 Urine Protein 2+ (Negative) H 07/26/16 16:30 Urine Glucose (UA) Negative (Negative) 07/26/16 16:30 Urine Ketones 1+ (Negative) H 07/26/16 16:30 Urine Blood Small (Negative) H 07/26/16 16:30 Urine Nitrate Negative (Negative) 07/26/16 16:30 Urine Bilirubin 1+ (Negative) H 07/26/16 16:30 Urine Urobilinogen 2.0 mg/dL (<2.0) 07/26/16 16:30 Ur Leukocyte Esterase Trace (Negative) H 07/26/16 16:30 Urine RBC 5 /hpf (0-5) 07/26/16 16:30 Urine WBC 13 /hpf (0-5) H 07/26/16 16:30 Ur Squamous Epith Cells 26 /hpf (0-4) H 07/26/16 16:30 Urine Bacteria Moderate /hpf (None) H 07/26/16 16:30 Hyaline Casts 6 /lpf (0-2) H 07/26/16 16:30 Urine Mucus Many /hpf (None) H 07/26/16 16:30 Microbiology 08/01/16 13:45 Abdomen Anaerobic Culture - Final Anaerobic Gm Negative Bacilli 08/01/16 13:45 Abdomen Gram Stain - Final 08/01/16 13:45 Abdomen Wound Culture - Final Enterococcus faecium VRE Enterococcus faecalis 07/26/16 17:15 Blood Blood Culture - Final No Growth after 144 hours 07/26/16 16:30 Urine,Clean Catch Urine Culture - Final - Imaging and Cardiology CT Scan - head: report reviewed (No evidence of any stroke multiple air bubbles within the CSF thought to be related to her recent epidural) Assessment and Plan (1) Diverticulitis of intestine with perforation and abscess Narrative/Plan: 55-year-old woman who had difficulties with perforated diverticulum and abscess. Is now status post colostomy. Culture showed evidence of the area of her wound and antibiotic therapy was altered to daptomycin and Zosyn. She's been tolerating this well. However she's now had seizure-like activity today. She's been seen by neurology. Bailey has been added. She is on multiple agents that could be of concern. Computed tomography scan is reviewed and shows evidence of the effects of her epidural. MRI is requested to ensure there is no structural changes within the brain with her history of prior colon cancer. Current antibiotics continue. She seems comfortable tonight. He moved to ICU for close monitoring of her neurological status. She is afebrile and her white cell count is decreased down to 10.7. Status: Acute
[2016-08-05 21:46] LABS: Glucose,Whole Blood 132 mg/dL (75-99)
--- NOTE | 2016-08-05 23:25 | PN ---
DATE OF SERVICE: 08/05/2016 PRESENTING COMPLAINT: Headache. INTERVAL HISTORY: This is a patient I saw 2 or 3 times since this afternoon. Patient is status post colostomy for perforated diverticulitis with abscess drained from the cul-de-sac. Patient is having stool in the colostomy bag. This morning patient had some headache but was feeling fine. No focal symptoms. Actually patient went to sleep for a good hour, woke up. Patient was having more headache and nurse called me that there was a question whether her speech was affected. She had a STAT CT scan. This came back showing air bubbles around the frontal lobe and the parietal lobe. Patient was thereby moved to [facility]. In the meantime I called Dr. Freitas from Anesthesia. Patient had an epidural taken out on Thursday, and this was felt to be responsible for the air bubbles in there. When I got up to the floor and saw the patient, Dr. Maguire was present. By now patient's speech actually had recovered and patient had again no focal symptoms otherwise. Subsequent to that, I left. Patient had a generalized seizure x2, for which anti-epileptic was ordered. Patient was given IV Keppra. Neuro checks were started. Review of systems earlier was done for constitutional, cardiovascular, GI, pulmonary; relevant findings as above. Current medications were reviewed that include daptomycin, IV Zosyn. Now IV Keppra has been added. On examination, temperature 97.4, pulse 85, respiration 18, blood pressure 144/82, pulse ox 95% on 2 L. GENERAL APPEARANCE: ( ) lying in bed, somewhat somnolent. EYES: Pupils equal. Conjunctiva reactive. NECK: JVD not raised. Mass not palpable. RESPIRATORY: Effort increased. LUNGS: Diminished breath sounds. Fair air entry. CARDIOVASCULAR: First and second sounds normal. No edema. ABDOMEN: Soft, non-tender. Colostomy bag has some liquid stool in place. NEUROLOGICAL: Plantar foot downgoing. Power and sensation grossly intact. Earlier the neurological exam was intact. INVESTIGATIONS: White count 10.7, hemoglobin 11.6, potassium 3.7. BUN 4, creatinine 0.60. Accu-Cheks are noted. CT scan of the brain as above. ASSESSMENT: 1. Stroke-like symptoms, probably from pressure from the air bubble in the parietal lobe affecting possibly the speech area; also causing patient's cephalgia and could be resulting from epidural that was taken out on Thursday evening, and also precipitating tonic-clonic seizures. 2. Acute sigmoid diverticulitis with perforation with abscess in the cul-de-sac followed by partial bowel resection and creation of colostomy. Cultures growing Enterococcus faecalis and Enterococcus faecium. 3. History of colon cancer with right hemicolectomy. 4. Chronic obstructive pulmonary disease in an ex-smoker. 5. Presbyesophagus diagnosed recently. 6. Anxiety, depression not otherwise specified. 7. Adrenal insufficiency on presentation from patient being on recent tapering dose of steroids. PLAN: Neuro checks are in place. Patient was put on Keppra. Neurology was contacted through ( ) and they documented 100% oxygen. Dr. Maguire is also following the patient. Time spent today in critical care was about 50 minutes.
[2016-08-06] MEDS: NICOTINE POLACRILEX 2 MG GUM BUCCAL SCH ×5 (05:02→20:09)
[2016-08-06] MEDS: HYDROmorphone 1 MG/ML 1 ML SYRINGE IV PRN ×2 (05:03→19:14)
[2016-08-06 05:32] LABS: Basophils % (A) 0 %; CH 28.7; CHCM 31.2; Eosinophils % (A) 0 %; HCT 38.6 % (34.0-46.0); HDW 2.43; HGB 11.9 gm/dL (11.4-16.0); Luc # (Auto) 0.14; Luc % (Auto) 1; Lymphocytes % (A) 8 %; MCH 28.5 pg (25.0-35.0); MCHC 30.8 g/dL (31.0-37.0); MCV 92.4 fL (80.0-100.0); Mean Platelet Volume 6.4; Monocytes # (A) 0.5 k/uL (0-1.0); Monocytes % (A) 4 %; Neutrophils # (A) 10.7 k/uL (1.3-7.7); Neutrophils % (A) 87 %; RBC 4.18 m/uL (3.80-5.40); RDW 14.1 % (11.5-15.5); WBC 12.4 k/uL (3.8-10.6); WBC (Perox) 14.39
[2016-08-06 05:40] LABS: Anion Gap 9 mmol/L; Blood Urea Nitrogen 7 mg/dL (7-17); Calcium 8.9 mg/dL (8.4-10.2); Carbon Dioxide 34 mmol/L (22-30); Chloride 98 mmol/L (98-107); Glucose 132 mg/dL (74-99); Magnesium 1.9 mg/dL (1.6-2.3); Non-African American GFR(MDRD) >60 (>60 ml/min/1.73 sqM); Phosphorous 3.8 mg/dL (2.5-4.5); Potassium 3.8 mmol/L (3.5-5.1); Sodium 141 mmol/L (137-145)
[2016-08-06] MEDS: MAGNESIUM SULFATE-D5W PMX 1 GM in DEXTROSE/WATER 1 100ML.BAG IVPB SCH ×2 (06:55→09:48)
[2016-08-06] MEDS ORDERED: POTASSIUM CHLORIDE ER 20 MEQ TAB.ER PO SCH (07:00)
[2016-08-06] MEDS: IPRATROPIUM-ALBUTEROL 3 ML NEB INHALATION SCH ×4 (09:07→20:13)
[2016-08-06] MEDS: INSULIN LISPRO (humaLOG) 300 UNIT/3 ML VIAL SQ SCH ×4 (09:48→20:15)
[2016-08-06] MEDS: HYDROCORTISONE SUCCINATE 100 MG/2 ML VIAL IV SCH ×3 (09:49→23:26)
[2016-08-06 09:50] LABS: Glucose,Whole Blood 111 mg/dL (75-99)
[2016-08-06] MEDS: PANTOPRAZOLE 40 MG TABLET PO SCH ×2 (09:50→17:02)
[2016-08-06] MEDS: levETIRAcetam 500 MG TAB PO SCH ×2 (09:51→20:10)
[2016-08-06] MEDS: NICOTINE 14MG/24HR PATCH TRANSDERM SCH (09:52)
[2016-08-06] MEDS: THEOPHYLLINE 24 HOUR 300 MG CAP.ER.24H PO SCH (09:52)
[2016-08-06] MEDS: FLUCONAZOLE 100 MG TAB PO SCH (09:53)
[2016-08-06] MEDS: CHOLECALCIFEROL 1,000 UNIT TAB PO SCH (09:53)
[2016-08-06] MEDS: VENLAFAXINE HCL ER 150 MG CAP PO SCH ×2 (09:53→20:10)
[2016-08-06] MEDS: CALCIUM CARB-VIT D 500MG-200UN 1 EACH TAB PO SCH (09:54)
[2016-08-06] MEDS: HYDROcodone/APAP 7.5-325MG 1 EACH TAB PO PRN ×3 (11:30→23:39)
--- NOTE | 2016-08-06 11:46 | P.CNPUL ---
History of Present Illness Consult date: 08/06/16 Chief complaint: Seizures, pneumocephalus History of present illness: 55-year-old female patient with history of perforated diverticulitis with abscess formation for which the patient was taken to the operating room on 08/01 and the patient underwent a sigmoid colectomy and end colostomy. Today the patient is postop day #5. Note that an epidural catheter was also inserted at the time of the surgery and the catheter was discontinued on the 08/03/2016. I refer to the anesthesiologist note on the catheter insertion process which was rather difficult and the insertional site was at L3-L4 and apparently during the verification of the placement of the epidural needle a 2 amounts of air was injected. In any rate, as the patient was recovering from her surgery, the patient developed slurred speech, confusion, lethargy and the stroke was suspected and the patient was immediately taken to the CAT scan of the brain that showed no evidence of any intraparenchymal hemorrhage or mass. The patient had multiple air bubbles within the CSF space of the left frontal and parietal lobes. This was again thought to be iatrogenic probably related to the epidural catheter insertion. Furthermore, the patient had 2 bouts of seizures, at 5 PM and 6 PM last night and these were essentially self-limiting seizures that lasted for few seconds. The patient was brought into the intensive care unit for that reason she was placed on IV Keppra. A follow-up CAT scan was ordered for today. A neurology consultation was also obtained. This morning, the patient is awake and alert and she is following commands and answering questions appropriately. She did not have any further episodes of seizures since yesterday. She is able to swallow and she was switched to oral Keppra. She remains on 100% nonrebreather facemask and high FiO2 is being applied per neurology's recommendations in regards to her pneumocephalus. She is not having any respiratory distress. No cough or sputum production. No chest pain.. Neurologic exam is essentially nonfocal at this point and she is moving all 4 extremities without any limitation. No slurred speech. Her colostomy site is functional at this point and the surgical wound site is essentially clean. She is on broad-spectrum antibiotics and she is currently receiving IV Zosyn and daptomycin. The intraoperative cultures were obtained showed enterococcus faecium/VRE and Enterococcus faecalis. The patient remains hemodynamically stable at this point. Review of Systems For review of system was done and the positive findings are almost above history of present illness Past Medical History Past Medical History: COPD, Hyperlipidemia Additional Past Medical History / Comment(s): COPD, migraines, colon cancer status post bowel resection without need for chemotherapy or radiation therapy, depression History of Any Multi-Drug Resistant Organisms: VRE Date of last positivie culture/infection: 08/01/16 MDRO Source:: Abdomen Past Surgical History: Appendectomy, Bowel Resection, Cholecystectomy, Hernia Repair, Tonsillectomy Additional Past Surgical History / Comment(s): re-hernia repair Past Anesthesia/Blood Transfusion Reactions: No Reported Reaction Additional Past Anesthesia/Blood Transfusion Reaction / Comment(s): spinal anesthesia Past Psychological History: Anxiety, Depression Smoking Status: Former smoker Past Alcohol Use History: Rare Additional Past Alcohol Use History / Comment(s): Patient was a smoker of half a pack per day for 20 years and plans to quit at this time. She is currently using nicotine gum. She denies any medical marijuana, marijuana, street drugs or alcohol use. She lives with her 14-year-old daughter. There are 2 cats and 2 dogs in the home. 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 Past Drug Use History: None Reported - Past Family History Mother Family Medical History: No Reported History Father Family Medical History: COPD, Coronary Artery Disease (CAD) Medications and Allergies Home Medications Medication Instructions Recorded Confirmed Type Albuterol Nebulized [Ventolin 2.5 mg INHALATION RT-Q6H PRN 09/15/14 07/26/16 History Nebulized] Budesonide/Formoterol Fumarate 2 puff INHALATION RT-BID PRN 09/15/14 07/26/16 History [Symbicort 80-4.5 Mcg Inhaler] Calcium Carb-Vit D 500Mg-200Un 1 tab PO DAILY 09/15/14 07/26/16 History [Oscal 500+D] Cholecalciferol [Vitamin D3] 2,000 unit PO DAILY 09/15/14 07/26/16 History Ezetimibe/Simvastatin [Vytorin 1 tab PO HS 09/15/14 07/26/16 History 10-10 mg Tablet] HYDROcodone/APAP 7.5-325MG [[place] 1 tab PO Q4H PRN 09/15/14 07/26/16 History 7.5-325] Multivitamins, Thera [Multivitamin] 1 tab PO DAILY@1200 09/15/14 07/26/16 History Butalb/Acetaminophen/Caffeine 1 - 2 cap PO Q4HR PRN 07/19/15 07/26/16 History [Fioricet 50-300-40 mg Capsule] Topiramate [Topamax] 50 mg PO BID PRN 07/19/15 07/26/16 History Albuterol Inhaler [Ventolin Hfa 1 - 2 puff INHALATION RT-Q6H PRN 10/21/15 History Inhaler] ALPRAZolam [Xanax] 0.25 mg PO QID PRN 07/16/16 07/26/16 History Venlafaxine HCl [Effexor XR] 150 mg PO BID 07/16/16 07/26/16 History predniSONE See Taper PO DAILY 07/26/16 07/26/16 History Allergies Allergy/AdvReac Type Severity Reaction Status Date / Time No Known Allergies Allergy Verified 08/01/16 10:57 Physical Exam Vitals: Vital Signs Temp Pulse Pulse Pulse Resp BP BP 08/06/16 10:00 71 17 139/77 08/06/16 09:19 59 L 08/06/16 09:09 61 08/06/16 09:00 59 L 12 131/77 08/06/16 08:00 97.8 F 59 L 12 131/62 08/06/16 07:00 64 16 129/73 08/06/16 06:00 63 16 121/66 08/06/16 05:00 68 28 H 129/75 08/06/16 04:00 97.8 F 63 19 130/72 08/06/16 03:00 62 14 111/65 08/06/16 02:00 66 14 109/64 08/06/16 01:30 68 13 08/06/16 01:15 64 16 109/64 08/06/16 01:00 67 12 08/06/16 00:45 68 14 08/06/16 00:30 69 16 08/06/16 00:15 98.0 F 69 18 110/63 08/06/16 00:00 68 17 123/71 08/05/16 23:45 73 17 116/65 08/05/16 23:30 69 17 107/69 01/31/17 23:15 71 18 103/63 08/05/16 23:00 75 18 104/65 08/05/16 22:45 80 18 100/63 08/05/16 22:30 84 20 102/65 08/05/16 22:15 91 16 116/70 08/05/16 22:00 78 13 08/05/16 21:45 97.5 F L 73 16 132/75 08/05/16 20:38 92 08/05/16 20:28 92 08/05/16 20:00 98.1 F 62 62 18 147/78 08/05/16 16:25 68 08/05/16 16:00 97.4 F L 85 18 145/82 08/05/16 13:30 97.2 F L 76 17 149/84 Pulse Ox 08/06/16 10:00 97 08/06/16 09:19 08/06/16 09:09 08/06/16 09:00 96 08/06/16 08:00 97 08/06/16 07:00 98 08/06/16 06:00 98 08/06/16 05:00 96 08/06/16 04:00 98 08/06/16 03:00 97 08/06/16 02:00 95 08/06/16 01:30 95 08/06/16 01:15 96 08/06/16 01:00 97 08/06/16 00:45 94 L 08/06/16 00:30 94 L 08/06/16 00:15 93 L 08/06/16 00:00 93 L 08/05/16 23:45 96 08/05/16 23:30 96 08/05/16 23:15 96 08/05/16 23:00 96 08/05/16 22:45 95 08/05/16 22:30 95 08/05/16 22:15 96 08/05/16 22:00 99 08/05/16 21:45 100 08/05/16 20:38 08/05/16 20:28 08/05/16 20:00 99 08/05/16 16:25 08/05/16 16:00 95 08/05/16 13:30 95 Intake and Output 08/05/16 08/06/16 08/06/16 22:59 06:59 14:59 Intake Total 12.5 232.5 380 Output Total 720 400 315 Balance -707.5 -167.5 65 Intake: IV 80 350 Magnesium Sulfate-D5w Pmx 200 1 gm In Dextrose/Water 1 100ml.bag @ 100 mls/hr IVPB Q1H [facility] Rx#: [id number] NS 80 100 Piperacillin-Tazobactam 3 50 .375 gm In Dextrose/Water 1 50ml.bag @ 12.5 mls/hr IVPB Q8HR [facility] Rx#: [id number] Intake, IV Titration 12.5 62.5 Amount Piperacillin-Tazobactam 3 12.5 62.5 .375 gm In Dextrose/Water 1 50ml.bag @ 12.5 mls/hr IVPB Q8HR [facility] Rx#: [id number] Oral 0 90 30 Output: Drainage 30 Abdomen 30 Urine 660 400 315 Stool 30 Other: Voiding Method Bedpan Indwelling Catheter # Voids 0 Weight 93.5 kg Head exam was generally normal. There was no scleral icterus or corneal arcus. Mucous membranes were moist.Neck was supple and without jugular venous distension, thyromegaly, or carotid bruits. Carotids were easily palpable bilaterally. There was no adenopathy.Lungs were clear to auscultation and percussion, and with normal diaphragmatic excursion. No wheezes or rales were noted. Cardiac exam revealed the PMI to be normally situated and sized. The rhythm was regular and no extrasystoles were noted during several minutes of auscultation. The first and second heart sounds were normal and physiologic splitting of the second heart sound was noted. There were no murmurs, rubs, clicks, or gallops. Abdomen is soft and the surgical wound site is clean and the colostomy site is functional and viable at this point. No direct tenderness. No rebound tenderness. No guarding.Examination of the extremities revealed easily palpable radial, femoral and pedal pulses. There was no cyanosis , clubbing or edema. Neurologically, the patient's OA3 and there are no focal neurological deficit at this point. Results - Laboratory Findings CBC and BMP: 08/06/16 04:43 08/06/16 04:43 PT/INR, D-dimer PT 10.0 sec (9.0-12.0) 07/27/16 15:20 INR 1.0 (<1.1) 07/27/16 15:20 Abnormal lab findings: Abnormal Labs 07/27/16 07/27/16 07/28/16 06:42 20:20 06:51 WBC 20.6 H 15.0 H RBC Hgb Hct MCHC 30.8 L Neutrophils # 17.6 H 13.4 H Lymphocytes # 0.9 L Monocytes # 1.2 H Basophils # 0.3 H Potassium Carbon Dioxide BUN Glucose POC Glucose (mg/dL) 137 H Calcium AST ALT Total Protein Albumin 07/28/16 07/28/16 07/28/16 06:51 11:54 17:05 WBC RBC Hgb Hct MCHC Neutrophils # Lymphocytes # Monocytes # Basophils # Potassium Carbon Dioxide BUN Glucose 124 H POC Glucose (mg/dL) 130 H 121 H Calcium 8.2 L AST ALT Total Protein Albumin 07/28/16 07/29/16 07/29/16 22:12 07:10 07:10 WBC 12.9 H RBC Hgb Hct MCHC Neutrophils # 10.7 H Lymphocytes # Monocytes # Basophils # Potassium Carbon Dioxide BUN Glucose 128 H POC Glucose (mg/dL) 108 H Calcium 8.3 L AST ALT 77 H Total Protein 5.4 L Albumin 2.9 L 07/29/16 07/29/16 07/29/16 08:24 11:52 23:56 WBC RBC Hgb Hct MCHC Neutrophils # Lymphocytes # Monocytes # Basophils # Potassium Carbon Dioxide BUN Glucose POC Glucose (mg/dL) 132 H 110 H 190 H Calcium AST ALT Total Protein Albumin 07/30/16 07/30/16 07/30/16 06:06 06:39 06:39 WBC 12.7 H RBC Hgb Hct MCHC Neutrophils # 10.4 H Lymphocytes # Monocytes # Basophils # Potassium Carbon Dioxide BUN Glucose 135 H POC Glucose (mg/dL) 137 H Calcium 8.3 L AST ALT 76 H Total Protein 5.1 L Albumin 2.7 L 07/30/16 07/30/16 07/31/16 11:22 17:53 01:36 WBC RBC Hgb Hct MCHC Neutrophils # Lymphocytes # Monocytes # Basophils # Potassium Carbon Dioxide BUN Glucose POC Glucose (mg/dL) 129 H 127 H 137 H Calcium AST ALT Total Protein Albumin 07/31/16 07/31/16 07/31/16 06:33 07:34 07:34 WBC 15.7 H RBC Hgb Hct MCHC Neutrophils # 13.1 H Lymphocytes # Monocytes # Basophils # Potassium Carbon Dioxide BUN 6 L Glucose 137 H POC Glucose (mg/dL) 134 H Calcium AST ALT 79 H Total Protein 5.4 L Albumin 2.9 L 07/31/16 08/01/16 08/01/16 17:57 00:53 06:28 WBC RBC Hgb Hct MCHC Neutrophils # Lymphocytes # Monocytes # Basophils # Potassium Carbon Dioxide BUN Glucose POC Glucose (mg/dL) 130 H 122 H 114 H Calcium AST ALT Total Protein Albumin 08/01/16 08/01/16 08/01/16 07:10 07:10 18:14 WBC 16.5 H RBC Hgb Hct MCHC Neutrophils # 13.2 H Lymphocytes # Monocytes # Basophils # Potassium Carbon Dioxide 33 H BUN 6 L Glucose POC Glucose (mg/dL) 117 H Calcium AST 47 H ALT 86 H Total Protein 5.5 L Albumin 3.1 L 08/01/16 08/02/16 08/02/16 23:57 05:40 06:37 WBC 16.1 H RBC Hgb Hct MCHC Neutrophils # 13.8 H Lymphocytes # Monocytes # Basophils # Potassium Carbon Dioxide BUN Glucose POC Glucose (mg/dL) 124 H 132 H Calcium AST ALT Total Protein Albumin 08/02/16 08/02/16 08/02/16 06:37 11:57 17:06 WBC RBC Hgb Hct MCHC Neutrophils # Lymphocytes # Monocytes # Basophils # Potassium 3.4 L Carbon Dioxide 33 H BUN Glucose 120 H POC Glucose (mg/dL) 120 H 237 H Calcium 8.0 L AST ALT 75 H Total Protein 4.5 L Albumin 2.5 L 08/02/16 08/02/16 08/03/16 17:21 23:33 06:27 WBC 12.5 H RBC 3.63 L Hgb 10.5 L Hct 33.5 L MCHC Neutrophils # 10.3 H Lymphocytes # Monocytes # Basophils # Potassium Carbon Dioxide BUN Glucose POC Glucose (mg/dL) 178 H 160 H Calcium AST ALT Total Protein Albumin 08/03/16 08/03/16 08/04/16 11:38 16:59 00:14 WBC RBC Hgb Hct MCHC Neutrophils # Lymphocytes # Monocytes # Basophils # Potassium Carbon Dioxide BUN Glucose POC Glucose (mg/dL) 196 H 159 H 287 H Calcium AST ALT Total Protein Albumin 08/04/16 08/04/1608/04/17 07:12 07:35 07:35 WBC 11.4 H RBC Hgb 11.1 L Hct MCHC Neutrophils # 9.6 H Lymphocytes # Monocytes # Basophils # Potassium Carbon Dioxide BUN 5 L Glucose 142 H POC Glucose (mg/dL) 135 H Calcium 8.0 L AST ALT Total Protein Albumin 08/04/16 08/04/16 08/04/16 11:14 16:05 21:34 WBC RBC Hgb Hct MCHC Neutrophils # Lymphocytes # Monocytes # Basophils # Potassium Carbon Dioxide BUN Glucose POC Glucose (mg/dL) 200 H 151 H 243 H Calcium AST ALT Total Protein Albumin 08/05/16 08/05/16 08/05/16 06:53 07:22 07:22 WBC 10.7 H RBC Hgb Hct MCHC Neutrophils # 8.8 H Lymphocytes # Monocytes # Basophils # Potassium Carbon Dioxide 34 H BUN 4 L Glucose 153 H POC Glucose (mg/dL) 159 H Calcium 8.3 L AST ALT Total Protein Albumin 08/05/16 08/05/16 08/05/16 11:24 13:17 16:52 WBC RBC Hgb Hct MCHC Neutrophils # Lymphocytes # Monocytes # Basophils # Potassium Carbon Dioxide BUN Glucose POC Glucose (mg/dL) 166 H 155 H 118 H Calcium AST ALT Total Protein Albumin 08/05/16 08/05/16 08/06/16 18:15 21:40 04:43 WBC 12.4 H RBC Hgb Hct MCHC 30.8 L Neutrophils # 10.7 H Lymphocytes # Monocytes # Basophils # Potassium Carbon Dioxide BUN Glucose POC Glucose (mg/dL) 109 H 132 H Calcium AST ALT Total Protein Albumin 08/06/16 08/06/16 04:43 09:47 WBC RBC Hgb Hct MCHC Neutrophils # Lymphocytes # Monocytes # Basophils # Potassium Carbon Dioxide 34 H BUN Glucose 132 H POC Glucose (mg/dL) 111 H Calcium AST ALT Total Protein Albumin Assessment and Plan Plan: Impression 1 acute pneumocephalus, likely iatrogenic and related to epidural catheter manipulation 2 acute seizure, currently on Keppra, EEG is to follow today 3 acute change in mental status with strokelike symptoms which is essentially recovered. Follow-up CAT scan of the brain is pending. Initial CAT scan did not show any acute stroke and there was evidence of pneumocephalus involving the left frontal and parietal area. This is thought to be the underlying cause for this patient's neurological symptoms. 4 complicated sigmoid diverticulitis with abscess formation status post sigmoid colectomy and diverting colostomy. At the abdominal cultures are showing enterococcus/VRE and currently the patient is on a combination of Zosyn and daptomycin 5 colon cancer history of status post right hemicolectomy 6 COPD 7 hyperlipidemia 8 depression 9 migraine Plan Awaiting results of the follow-up CAT scans was obtained this morning. This will assess the progression of the pneumocephalus. Meanwhile continue the Keppra. Monitor neurological functions. Continue Zosyn and daptomycin and Diflucan. Stress dose hydrocortisone which will be gradually tapered. We'll continue to follow make further recommendations based on her progress. Neurology on the case. General surgeries on the case. ID is also on the case. We'll keep the patient 100% nonrebreather facemask for now. It clearance from cardiology and we'll gradually wean her down as tolerated.
[2016-08-06] MEDS: PIPERACILLIN-TAZOBACTAM 3.375 GM in DEXTROSE/WATER 1 50ML.BAG IVPB SCH ×3 (11:48→23:27)
--- NOTE | 2016-08-06 12:18 | CT ---
EXAMINATION TYPE: CT brain wo con DATE OF EXAM: 08/06/2016 11:35 AM COMPARISON: Previous study dated 08/05/2016. HISTORY: F/u study CT DLP: 1036 mGycm Automated exposure control for dose reduction was used. FINDINGS: Air within the CSF space appears to have been resorbed. Central structures are midline. There is no evidence of hydrocephalus. There is questionable lucency in the left cerebellar hemisphere. There is also abnormal lucency in the occipital lobes bilaterally. There is no mass effect, midline shift or intracranial blood. Visualized portions of the paranasal sinuses and mastoids are clear. No depressed skull fracture is s een. IMPRESSION: 1. RESORPTION OF THE PATIENT'S CSF SPACE AIR. 2. ABNORMAL AREAS OF LUCENCY IN THE AXILLARY LOBES BILATERALLY WELL THE LEFT CEREBELLAR HEMISPH ERE. THE POSTCONTRAST CT WOULD BE SUGGESTED.
[2016-08-06 13:06] LABS: Glucose,Whole Blood 147 mg/dL (75-99)
--- NOTE | 2016-08-06 13:36 | P.PN ---
Subjective Principal diagnosis: Perforated diverticulitis with abscess Patient is a 55-year-old white female admitted with perforated diverticulitis with abscess status post Logan's procedure with sigmoid colectomy and end colostomy with drainage of abscess, postop day #5. Patient is evaluated in the intensive care unit where she was transferred yesterday after she had 2 seizures last night. Computed tomography scan of the brain with no evidence of hemorrhage or mass but did show multiple air bubbles within the CSF space of the left frontal and parietal lobe. Neurology consultation was obtained and patient has been started on IV Keppra. Patient is currently awaiting repeat computed tomography scan of brain. Upon examination, patient complains of posterior headache described as throbbing currently rated 4 out of 10. Denies chills, fevers, nausea, vomiting, shortness of breath, or chest pain. Incisional pain controlled. Passing flatus with light brown stool in her colostomy bag. Urine output adequate. Tolerating soft diet. Afebrile. WBC 12.4.. Hemoglobin stable at 11.9. Objective - Vital Signs Vital signs: Vital Signs Temp 96.7 F L 08/06/16 12:00 Pulse 80 08/06/16 13:00 Resp 17 08/06/16 13:00 BP 114/65 08/06/16 13:00 Pulse Ox 98 08/06/16 13:00 Intake & Output 08/05/16 08/06/16 08/06/16 18:59 06:59 18:59 Intake Total 0 245.0 420 Output Total 590 560 410 Balance -590 -315.0 10 Weight 93.5 kg Intake: IV 80 390 Magnesium Sulfate-D5w Pmx 200 1 gm In Dextrose/Water 1 100ml.bag @ 100 mls/hr IVPB Q1H [facility] Rx#: [id number] NS 80 140 Piperacillin-Tazobactam 3 50 .375 gm In Dextrose/Water 1 50ml.bag @ 12.5 mls/hr IVPB Q8HR [facility] Rx#: [id number] Intake, IV Titration 75.0 Amount Piperacillin-Tazobactam 3 75.0 .375 gm In Dextrose/Water 1 50ml.bag @ 12.5 mls/hr IVPB Q8HR [facility] Rx#: [id number] Oral 0 90 30 Output: Drainage 60 Abdomen 60 Urine 500 560 410 Stool 30 Other: Voiding Method Toilet Indwelling Catheter Indwelling Catheter # Voids 0 - Exam GENERAL: Pt awake and alert, well-nourished, and in no acute distress. LUNGS: Breath sounds clear to auscultation bilaterally. No wheezes, rales, or rhonchi. HEART: Heart S1, S2, no S3 or S4. Regular rate and rhythm. No murmurs, rubs or gallops. ABDOMEN: Soft, mild incisional tenderness, nondistended, active bowel sounds. No guarding, no rebound. Ostomy pink and viable. Abdominal incision approximated with Telfa lilli between adilia, no cellulitis or purulent drainage. Louie-Andre drain compressed with minimal serosanguineous drainage. NEUROLOGICAL: Pt oriented x 3. No focal deficits. - Labs CBC & Chem 7: 08/06/16 04:43 08/06/16 04:43 Labs: Abnormal Lab Results - Last 24 Hours (Table) 08/05/16 08/05/16 08/05/16 Range/Units 13:17 16:52 18:15 WBC (3.8-10.6) k/uL MCHC (31.0-37.0) g/dL Neutrophils # (1.3-7.7) k/uL Carbon Dioxide (22-30) mmol/L Glucose (74-99) mg/dL POC Glucose (mg/dL) 155 H 118 H 109 H (75-99) mg/dL 08/05/16 08/06/16 08/06/16 Range/Units 21:40 04:43 04:43 WBC 12.4 H (3.8-10.6) k/uL MCHC 30.8 L (31.0-37.0) g/dL Neutrophils # 10.7 H (1.3-7.7) k/uL Carbon Dioxide 34 H (22-30) mmol/L Glucose 132 H (74-99) mg/dL POC Glucose (mg/dL) 132 H (75-99) mg/dL 08/06/16 08/06/16 Range/Units 09:47 13:04 WBC (3.8-10.6) k/uL MCHC (31.0-37.0) g/dL Neutrophils # (1.3-7.7) k/uL Carbon Dioxide (22-30) mmol/L Glucose (74-99) mg/dL POC Glucose (mg/dL) 111 H 147 H (75-99) mg/dL Assessment and Plan Plan: Impression: 1. Perforated diverticulitis with abscess status post sigmoid colectomy with end colostomy and drainage of abscess abscess on 08/01/2016. Wound cultures positive for enterococcus/VRE. 2. Acute pneumocephalus, suspect iatrogenic and related to epidural catheter manipulation. 3. New onset seizures, currently on IV Keppra. 4. Acute metabolic encephalopathy, resolved. Follow-up CT brain pending. 5. History of colon cancer status post right hemicolectomy. Plan: 1. Continue soft foods. Continue local wound care. Continue IV antibiotics. Continue supportive treatment and pain management. Continue to follow with medical team. The above impression and plan have been discussed and directed by Dr. Caceres. Pb SHELTON acting as scribe for Dr. Caceres.
[2016-08-06] MEDS: MULTIVITAMINS, THERA 1 EACH TAB PO SCH (13:46)
[2016-08-06] MEDS: DAPTOmycin 500 MG in SODIUM CHLORIDE 0.9% 50 ML IV SCH (17:02)
[2016-08-06 17:33] LABS: Glucose,Whole Blood 165 mg/dL (75-99)
[2016-08-06] MEDS ORDERED: RX INFO: IV CONTRAST WAS GIVEN 1 EACH MISC MISCELLANE PRN (18:35)
--- NOTE | 2016-08-06 18:42 | P.PN ---
Subjective This patient is a 55-year-old female who was evaluated yesterday and neurology consultation for evaluation of TIA versus stroke. Patient presented with symptoms of expressive aphasia. She was sent for computed tomography scan of the brain yesterday which failed to reveal any evidence of acute stroke. There was evidence of multiple air bubbles on the surface of the left parietal occipital region. The patient also yesterday evening had to generalized seizures. She was started on Keppra for anticonvulsant therapy. She was placed on nonrebreather mask with high FiO2 and transferred to the intensive care unit. Patient was sent for repeat computed tomography scan of the brain today which did reveal evidence of resolution and reabsorption of the air bubbles that was noted on the CAT scan yesterday. There was some abnormal areas of lucency involving the left cerebellar hemisphere. Computed tomography scan of the brain with contrast was recommended. Patient is now in the intensive care unit. She is following simple commands. She has had no further seizure activity today. She is sitting up in bed and is much more awake and alert today. She has had no further seizure activity today. Her Keppra blood level is pending from the laboratory. We will obtain a computed tomography scan of the brain with contrast tomorrow as recommended by radiology. As mentioned the small air bubbles that was seen on the CAT scan of the brain yesterday have completely resolved. We will continue to follow her progress closely in the intensive care unit. Overall prognosis at this time remains guarded. Objective - Vital Signs Vital signs: Vital Signs Temp 96.7 F L 08/06/16 12:00 Pulse 100 08/06/16 15:23 Resp 14 08/06/16 15:29 BP 96/55 08/06/16 15:00 Pulse Ox 92 L 08/06/16 15:00 Intake & Output 08/05/16 08/06/16 08/06/16 18:59 06:59 18:59 Intake Total 0 245.0 460 Output Total 590 560 530 Balance -590 -315.0 -70 Weight 93.5 kg Intake: IV 80 430 Magnesium Sulfate-D5w Pmx 200 1 gm In Dextrose/Water 1 100ml.bag @ 100 mls/hr IVPB Q1H [facility] Rx#: [id number] NS 80 180 Piperacillin-Tazobactam 3 50 .375 gm In Dextrose/Water 1 50ml.bag @ 12.5 mls/hr IVPB Q8HR [facility] Rx#: [id number] Intake, IV Titration 75.0 Amount Piperacillin-Tazobactam 3 75.0 .375 gm In Dextrose/Water 1 50ml.bag @ 12.5 mls/hr IVPB Q8HR [facility] Rx#: [id number] Oral 0 90 30 Output: Drainage 60 Abdomen 60 Urine 500 560 530 Stool 30 Other: Voiding Method Toilet Indwelling Catheter Indwelling Catheter # Voids 0 - Exam Physical examination: PHYSICAL EXAMINATION: Patient is resting comfortably in bed. VITAL SIGNS: Blood pressure is [92/57]. Heart rate is [75]. Respiration is [17] . Temperature is [97.3]. HEENT: Head is atraumatic, neck is supple, there were no carotid bruits. CHEST: Lungs are clear to auscultation and percussion. CARDIAC: S1, S2 normal rate and rhythm. There is no murmur. ABDOMEN: Soft and nontender. Bowel sounds are present. EXTREMITIES: There is no pedal edema. Peripheral pulses are present. Neurological examination: Patient is examined in the intensive care unit today. She is alert and oriented 3. She is following all commands. Speech is clear. Cranial nerves II through XII are grossly intact. Motor examination fails to reveal any focal weakness. Deep tendon reflexes are 1+ and symmetric. Plantar responses flexor bilaterally. - Labs CBC & Chem 7: 08/06/16 04:43 08/06/16 04:43 Labs: Abnormal Lab Results - Last 24 Hours (Table) 08/05/16 08/05/16 08/05/16 Range/Units 16:52 18:15 21:40 WBC (3.8-10.6) k/uL MCHC (31.0-37.0) g/dL Neutrophils # (1.3-7.7) k/uL Carbon Dioxide (22-30) mmol/L Glucose (74-99) mg/dL POC Glucose (mg/dL) 118 H 109 H 132 H (75-99) mg/dL 08/06/16 08/06/16 08/06/16 Range/Units 04:43 04:43 09:47 WBC 12.4 H (3.8-10.6) k/uL MCHC 30.8 L (31.0-37.0) g/dL Neutrophils # 10.7 H (1.3-7.7) k/uL Carbon Dioxide 34 H (22-30) mmol/L Glucose 132 H (74-99) mg/dL POC Glucose (mg/dL) 111 H (75-99) mg/dL 08/06/16 Range/Units 13:04 WBC (3.8-10.6) k/uL MCHC (31.0-37.0) g/dL Neutrophils # (1.3-7.7) k/uL Carbon Dioxide (22-30) mmol/L Glucose (74-99) mg/dL POC Glucose (mg/dL) 147 H (75-99) mg/dL Assessment and Plan (1) TIA (transient ischemic attack) Status: Acute Code(s): G45.9 - TRANSIENT CEREBRAL ISCHEMIC ATTACK, UNSPECIFIED (2) Acute ischemic left middle cerebral artery (MCA) stroke Status: Acute Code(s): I63.512 - CEREB INFRC D/T UNSP OCCLS OR STENOS OF LEFT MID CEREB ART (3) Diverticulitis of intestine with perforation and abscess Status: Acute Code(s): K57.80 - DVTRCLI OF INTEST, PART UNSP, W PERF AND ABSCESS W/O BLEED (4) S/P right colectomy Status: Chronic Code(s): Z90.49 - ACQUIRED ABSENCE OF OTHER SPECIFIED PARTS OF DIGESTIVE TRACT (5) New onset seizure Status: Acute Code(s): R56.9 - UNSPECIFIED CONVULSIONS Plan: This patient is a 55-year-old female who was recently diagnosed with a perforated diverticulitis and abscess formation. General surgery has been following the patient and she underwent a sigmoid colectomy and end colostomy for perforation of diverticulum and abscess formation. She underwent surgery on 08/01/2016. Yesterday her epidural came out and she was noted this morning to have episode of headache and slurring of her speech. She was felt to have demonstrated evidence for possible TIA versus stroke. She was sent for a computed tomography scan of the brain today which revealed no evidence of acute stroke or hemorrhage. There was multiple small air bubble seen within the CSF space over the left frontal and parietal lobes. 4 small air bubbles were noted on the CAT scan films. Patient did undergo epidural placement in the epidural was removed recently. This likely is the cause for the finding of multiple air bubbles on the CAT scan of the brain films. We have recommended for anesthesia to see the patient today for follow-up. Her neurological exam otherwise at this time is nonfocal other than she does complain of headache. CAT scan films were reviewed and there is nonspecific ischemic changes noted in the left hemisphere and left cerebellar region of unclear etiology. We had recommended an MRI of the brain for further evaluation. Patient is unable to have a MRI of the brain due to recent abdominal surgery and placement of adilia. The air bubbles noted on the CAT scan should be reabsorbed spontaneously with time. She was sent for a repeat computed tomography scan of the brain today which revealed reveals reabsorption of the air. There was evidence of some lucency bilaterally as well as left cerebellar hemisphere. We have recommended that she have a computed tomography scan of the brain with contrast tomorrow as recommended by radiology. Patient is more awake and alert today. She is able to answer all questions appropriately. No further seizure activity has been noted. We're waiting the results of her Keppra blood level to return from the laboratory. Case was discussed today at length with the patient as well as with Dr. Abad today. We will continue close neurological follow-up of this patient in the intensive care unit. Her overall prognosis at this time remains very guarded.
[2016-08-06] MEDS: ATORVASTATIN 10 MG TAB PO SCH (20:10)
[2016-08-06] MEDS: EZETIMIBE 10 MG TAB PO SCH (20:10)
[2016-08-06] MEDS: SYMBICORT 80-4.5 MCG INHALER INHALATION PRN (20:13)
[2016-08-06 20:16] LABS: Glucose,Whole Blood 169 mg/dL (75-99)
--- NOTE | 2016-08-06 23:14 | P.PN ---
Subjective Principal diagnosis: VRE in wound culture This is a 55-year-old female recent hospitalization for COPD exacerbation. She states she was discharged home and then had a flareup of her diverticulitis which she has not had in many years. She states she went home on Thursday night and she went to [place] and almost immediately she ended up staying in bed for the following 3 days. She came into [facility] emergency center with complaints of abdominal pain and no bowel movement for 5-6 days. CAT scan of the abdomen and pelvis showed just diffuse thickening of the sigmoid colon, collection between uterus and sigmoid colon which may be abscess. Patient was initially seen by Dr. Anand and she recommended surgical intervention at bedtime. Patient was then seen by Dr. Caceres recommended IV antibiotics. A repeat CAT scan of the abdomen on July 30 showed localized perforation with leak into the cul-de-sac and cephalad to bladder adjacent to the uterus. Extensive diverticulosis. Patient went to or on August [address] Gaffney underwent sigmoid colectomy with end colostomy for perforated diverticulitis with abscess. Patient states that her epidural came out last night. Spencer catheter has been removed and she has been urinating on her own without difficulty. She states she is up and ambulating in the hallway without difficulty. She is currently on clear liquid diet hoping that this will be advanced. She does have liquid stool in her colostomy bag. Initial white count was at 33 and currently down to 11.4. She has been afebrile. Blood cultures showing no growth. She was placed on daptomycin and Zosyn. 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 When she was seen she was feeling better. However today is developed seizures. She been seen by neurology. With history of colon cancer there's concern for potential underlying structural lung disease versus stroke. As discussed with the neurologist she is on many medications that could be linked to seizure. It is quite unlikely the current antibiotics are etiology. improved today no new symptoms. Objective - Vital Signs Vital signs: Vital Signs Temp 97.9 F 08/06/16 20:00 Pulse 76 08/06/16 22:00 Resp 12 08/06/16 22:00 BP 101/66 08/06/16 22:00 Pulse Ox 94 L 08/06/16 22:00 Intake & Output 08/06/16 08/06/16 08/07/16 06:59 18:59 06:59 Intake Total 245.0 620 320 Output Total 560 810 365 Balance -315.0 -190 -45 Weight 93.5 kg Intake: IV 80 590 80 DAPTOmycin 500 mg In 50 Sodium Chloride 0.9% 50 ml @ 100 mls/hr IV DAILY@ 1700 [facility] Rx#:[id number] Magnesium Sulfate-D5w Pmx 200 1 gm In Dextrose/Water 1 100ml.bag @ 100 mls/hr IVPB Q1H [facility] Rx#: [id number] NS 80 240 80 Piperacillin-Tazobactam 3 100 .375 gm In Dextrose/Water 1 50ml.bag @ 12.5 mls/hr IVPB Q8HR [facility] Rx#: [id number] Intake, IV Titration 75.0 Amount Piperacillin-Tazobactam 3 75.0 .375 gm In Dextrose/Water 1 50ml.bag @ 12.5 mls/hr IVPB Q8HR [facility] Rx#: [id number] Oral 90 30 240 Output: Urine 560 810 365 Other: Voiding Method Indwelling Catheter Indwelling Catheter Indwelling Catheter # Voids 0 - Exam Gen: This is a 55-year-old female. She is sitting up in bed and appears to be comfortable. She does not appear to be in any distress. HEENT: Head is atraumatic, normocephalic. Pupils equal, round. Sclerae is anicteric. Conjunctiva pink. Mucous members of the mouth are dry. NECK: Supple. No JVD. No lymphadenopathy. No thyromegaly. LUNGS: Clear to auscultation. No wheezes or rhonchi. No intercostal retractions. HEART: Regular rate and rhythm. No murmur. ABDOMEN: Soft. Bowel sounds are present. No masses. Mild tenderness to the right lower quadrant. Ostomy bag has liquid brown stool. BRITTA drain with serosanguineous drainage. EXTREMITIES: No pedal edema. No calf tenderness. Dorsalis pedis +2 bilaterally. NEUROLOGICAL: Patient is awake, alert Ox3 - Labs CBC & Chem 7: 08/06/16 04:43 08/06/16 04:43 Labs: Abnormal Lab Results - Last 24 Hours (Table) 08/06/16 08/06/16 08/06/16 Range/Units 04:43 04:43 09:47 WBC 12.4 H (3.8-10.6) k/uL MCHC 30.8 L (31.0-37.0) g/dL Neutrophils # 10.7 H (1.3-7.7) k/uL Carbon Dioxide 34 H (22-30) mmol/L Glucose 132 H (74-99) mg/dL POC Glucose (mg/dL) 111 H (75-99) mg/dL 08/06/16 08/06/16 08/06/16 Range/Units 13:04 17:31 20:14 WBC (3.8-10.6) k/uL MCHC (31.0-37.0) g/dL Neutrophils # (1.3-7.7) k/uL Carbon Dioxide (22-30) mmol/L Glucose (74-99) mg/dL POC Glucose (mg/dL) 147 H 165 H 169 H (75-99) mg/dL Laboratory Results WBC 12.4 k/uL (3.8-10.6) H 08/06/16 04:43 RBC 4.18 m/uL (3.80-5.40) 08/06/16 04:43 Hgb 11.9 gm/dL (11.4-16.0) 08/06/16 04:43 Hct 38.6 % (34.0-46.0) 08/06/16 04:43 MCV 92.4 fL (80.0-100.0) 08/06/16 04:43 MCH 28.5 pg (25.0-35.0) 08/06/16 04:43 MCHC 30.8 g/dL (31.0-37.0) L 08/06/16 04:43 RDW 14.1 % (11.5-15.5) 08/06/16 04:43 Plt Count 262 k/uL (150-450) 08/06/16 04:43 Neutrophils % 87 % 08/06/16 04:43 Lymphocytes % 8 % 08/06/16 04:43 Monocytes % 4 % 08/06/16 04:43 Eosinophils % 0 % 08/06/16 04:43 Basophils % 0 % 08/06/16 04:43 Neutrophils # 10.7 k/uL (1.3-7.7) H 08/06/16 04:43 Lymphocytes # 1.0 k/uL (1.0-4.8) 08/06/16 04:43 Monocytes # 0.5 k/uL (0-1.0) 08/06/16 04:43 Eosinophils # 0.0 k/uL (0-0.7) 08/06/16 04:43 Basophils # 0.0 k/uL (0-0.2) 08/06/16 04:43 Hypochromasia Slight 07/31/16 07:34 PT 10.0 sec (9.0-12.0) 07/27/16 15:20 INR 1.0 (<1.1) 07/27/16 15:20 Sodium 141 mmol/L (137-145) 08/06/16 04:43 Potassium 3.8 mmol/L (3.5-5.1) 08/06/16 04:43 Chloride 98 mmol/L (98-107) 08/06/16 04:43 Carbon Dioxide 34 mmol/L (22-30) H 08/06/16 04:43 Anion Gap 9 mmol/L 08/06/16 04:43 BUN 7 mg/dL (7-17) 08/06/16 04:43 Creatinine 0.64 mg/dL (0.52-1.04) 08/06/16 04:43 Est GFR (MDRD) Af Amer >60 (>60 ml/min/1.73 sqM) 08/06/16 04:43 Est GFR (MDRD) Non-Af >60 (>60 ml/min/1.73 sqM) 08/06/16 04:43 Glucose 132 mg/dL (74-99) H 08/06/16 04:43 POC Glucose (mg/dL) 169 mg/dL (75-99) H 08/06/16 20:14 POC Glu Ophthalmology Surgical Technician Eliza Salas 08/06/16 20:14 Plasma Lactic Acid Nadir 0.9 mmol/L (0.7-2.0) 07/26/16 17:15 Calcium 8.9 mg/dL (8.4-10.2) 08/06/16 04:43 Phosphorus 3.8 mg/dL (2.5-4.5) 08/06/16 04:43 Magnesium 1.9 mg/dL (1.6-2.3) 08/06/16 04:43 Total Bilirubin 0.4 mg/dL (0.2-1.3) 08/02/16 06:37 AST 28 U/L (14-36) 08/02/16 06:37 ALT 75 U/L (9-52) H 08/02/16 06:37 Alkaline Phosphatase 52 U/L (38-126) 08/02/16 06:37 Total Protein 4.5 g/dL (6.3-8.2) L 08/02/16 06:37 Albumin 2.5 g/dL (3.5-5.0) L 08/02/16 06:37 Amylase 31 U/L (30-110) 07/26/16 16:30 Lipase 34 U/L (23-300) 07/26/16 16:30 Cortisol 8 ug/dL 07/27/16 15:20 Urine Color Yellow 07/26/16 16:30 Urine Appearance Cloudy (Clear) H 07/26/16 16:30 Urine pH 6.0 (5.0-8.0) 07/26/16 16:30 Ur Specific [place] 1.024 (1.001-1.035) 07/26/16 16:30 Urine Protein 2+ (Negative) H 07/26/16 16:30 Urine Glucose (UA) Negative (Negative) 07/26/16 16:30 Urine Ketones 1+ (Negative) H 07/26/16 16:30 Urine Blood Small (Negative) H 07/26/16 16:30 Urine Nitrate Negative (Negative) 07/26/16 16:30 Urine Bilirubin 1+ (Negative) H 07/26/16 16:30 Urine Urobilinogen 2.0 mg/dL (<2.0) 07/26/16 16:30 Ur Leukocyte Esterase Trace (Negative) H 07/26/16 16:30 Urine RBC 5 /hpf (0-5) 07/26/16 16:30 Urine WBC 13 /hpf (0-5) H 07/26/16 16:30 Ur Squamous Epith Cells 26 /hpf (0-4) H 07/26/16 16:30 Urine Bacteria Moderate /hpf (None) H 07/26/16 16:30 Hyaline Casts 6 /lpf (0-2) H 07/26/16 16:30 Urine Mucus Many /hpf (None) H 07/26/16 16:30 Microbiology 08/01/16 13:45 Abdomen Anaerobic Culture - Final Anaerobic Gm Negative Bacilli 08/01/16 13:45 Abdomen Gram Stain - Final 08/01/16 13:45 Abdomen Wound Culture - Final Enterococcus faecium VRE Enterococcus faecalis 07/26/16 17:15 Blood Blood Culture - Final No Growth after 144 hours 07/26/16 16:30 Urine,Clean Catch Urine Culture - Final Assessment and Plan (1) Diverticulitis of intestine with perforation and abscess Narrative/Plan: 55-year-old woman who had difficulties with perforated diverticulum and abscess. Is now status post colostomy. Culture showed evidence of the area of her wound and antibiotic therapy was altered to daptomycin and Zosyn. She's been tolerating this well. Will plan 10 days. However she's now had seizure-like activity today. She's been seen by neurology. Keppra has been added. She is on multiple agents that could be of concern. Computed tomography scan is reviewed and shows evidence of the effects of her epidural. MRI is requested to ensure there is no structural changes within the brain with her history of prior colon cancer. Current antibiotics continue. She seems comfortable tonight. She was moved to ICU for close monitoring of her neurological status. She is afebrile and her white cell count is decreased down to 10.7. Status: Acute
[2016-08-07] MEDS: NICOTINE POLACRILEX 2 MG GUM BUCCAL SCH ×6 (01:00→20:28)
[2016-08-07 05:23] LABS: Basophils % (A) 0 %; CH 29.1; CHCM 32.3; Eosinophils # (A) 0.1 k/uL (0-0.7); Eosinophils % (A) 1 %; HCT 39.6 % (34.0-46.0); HDW 2.41; HGB 12.9 gm/dL (11.4-16.0); Luc # (Auto) 0.08; Luc % (Auto) 1; Lymphocytes % (A) 9 %; MCH 29.4 pg (25.0-35.0); MCHC 32.5 g/dL (31.0-37.0); MCV 90.5 fL (80.0-100.0); Mean Platelet Volume 7.6; Monocytes # (A) 0.5 k/uL (0-1.0); Monocytes % (A) 4 %; Neutrophils # (A) 9.9 k/uL (1.3-7.7); Neutrophils % (A) 85 %; RBC 4.38 m/uL (3.80-5.40); RDW 14.4 % (11.5-15.5); WBC 11.6 k/uL (3.8-10.6); WBC (Perox) 11.52
[2016-08-07] MEDS: HYDROcodone/APAP 7.5-325MG 1 EACH TAB PO PRN ×3 (05:25→20:40)
[2016-08-07 05:49] LABS: Anion Gap 10 mmol/L; Calcium 8.5 mg/dL (8.4-10.2); Carbon Dioxide 33 mmol/L (22-30); Chloride 97 mmol/L (98-107); Glucose 168 mg/dL (74-99); Non-African American GFR(MDRD) >60 (>60 ml/min/1.73 sqM); Sodium 140 mmol/L (137-145)
[2016-08-07 05:53] LABS: Phosphorous 3.8 mg/dL (2.5-4.5); Potassium 4.1 mmol/L (3.5-5.1)
[2016-08-07 05:54] LABS: Blood Urea Nitrogen 12 mg/dL (7-17); Magnesium 2.1 mg/dL (1.6-2.3)
[2016-08-07] MEDS: HYDROmorphone 1 MG/ML 1 ML SYRINGE IV PRN (07:11)
--- NOTE | 2016-08-07 07:16 | PN ---
DATE OF SERVICE: 08/06/2016 PRESENTING COMPLAINT: Headaches. INTERVAL HISTORY: This is a patient initially admitted with acute perforated diverticulitis with abscess that was drained from the cul-de-sac with a resultant colostomy. Patient had an epidural taken out on Thursday and yesterday developed severe headache with seizures. Air bubbles were found in the frontal and temporal lobe area. We put the patient on 100% oxygen, transferred to the ICU, overnight patient did stabilize. Sitting up in a chair this morning, headache is much improved. Repeat CT scan air bubbles are gone. Review of systems done for constitutional, cardiovascular, GI, pulmonary; relevant findings as above. Current medications are reviewed that include daptomycin and IV Zosyn. On examination, temperature 97.3, pulse 91, respiration 21, blood pressure 92/52, pulse ox 91% on 3 L. GENERAL APPEARANCE: Sitting up in a chair, comfortable, tired-appearing. EYES: Pupils equal. Conjunctivae normal. NECK: JVD not raised. Mass not palpable. Respiratory effort normal. Lungs fair entry. CARDIOVASCULAR: First and second sounds normal. No edema. ABDOMEN: Soft, nontender. Colostomy bag in place. NEUROLOGICAL: Power and sensation intact. Speech is normal. PSYCH: Alert and oriented x3. Mood and affect normal. INVESTIGATIONS: CT scan showing not resolution of bubbles. White count 12.4. Potassium 3.8, BUN and creatine are normal. ASSESSMENT: 1. Air bubbles noted in the CSF causing seizures resulting from epidural, responded well to 100% oxygen. 2. Acute sigmoid diverticulitis with perforation of abscess in the cul-de-sac followed by partial bowel resection and creation of colostomy, cultures growing Enterococcus faecalis and enterococcus faecium. 3. History of colon cancer with right hemicolectomy. 4. Chronic obstructive pulmonary disease in an ex-smoker. 5. Presbyesophagus diagnosed recently. 6. Anxiety, depression, not otherwise specified. 7. Adrenal insufficiency on presentation from patient being on recent tapering dose of steroids. Maintained on IV hydrocortisone. PLAN: Continue current medication and treatment plan. Oxygen has been dropped. Continue with antibiotics. Patient will be watched another 24 hours. Patient is also Keppra, will be moved out of the ICU in the morning if remains stable.
[2016-08-07 07:47] LABS: Glucose,Whole Blood 150 mg/dL (75-99)
--- NOTE | 2016-08-07 07:56 | EEG ---
DATE OF SERVICE: 08/06/2016 INDICATIONS FOR EXAMINATION: This patient is a 55-year-old female being evaluated for new onset seizure disorder. AGE: 55Y EEG FINDINGS: A routine 21-channel, awake digital EEG recording was accomplished utilizing the 10 to 20 international system with bipolar and referential montages. The background activity in the most alert resting state consists of a low to medium amplitude, fairly well-developed and well-sustained 6 to 7 Hz activity over the posterior head regions. This posterior rhythm attenuates to eye opening. There is a small amount of low amplitude 18 to 20 Hz beta activity seen maximally over the anterior head regions. Muscle and movement artifact was observed on a few occasions during the tracing. Hyperventilation was not performed. Photic stimulation at flash frequencies of 2 to 30 Hz produced a minimal occipital driving response. No epileptiform discharges were seen. IMPRESSION: This EEG is mildly abnormal in diffuse fashion due to slight slowing of the EEG background. The EEG failed to reveal any focal, lateralized or epileptiform abnormalities. Clinical correlation is recommended.
[2016-08-07] MEDS: HYDROCORTISONE SUCCINATE 100 MG/2 ML VIAL IV SCH ×2 (08:37→15:28)
[2016-08-07] MEDS: FLUCONAZOLE 100 MG TAB PO SCH (08:38)
[2016-08-07] MEDS: INSULIN LISPRO (humaLOG) 300 UNIT/3 ML VIAL SQ SCH ×4 (08:39→20:36)
[2016-08-07] MEDS: levETIRAcetam 500 MG TAB PO SCH ×2 (08:39→20:30)
[2016-08-07] MEDS: PANTOPRAZOLE 40 MG TABLET PO SCH ×2 (08:39→18:16)
[2016-08-07] MEDS: PIPERACILLIN-TAZOBACTAM 3.375 GM in DEXTROSE/WATER 1 50ML.BAG IVPB SCH ×2 (08:39→15:31)
[2016-08-07] MEDS: CHOLECALCIFEROL 1,000 UNIT TAB PO SCH (08:39)
[2016-08-07] MEDS: THEOPHYLLINE 24 HOUR 300 MG CAP.ER.24H PO SCH (08:40)
[2016-08-07] MEDS: NICOTINE 14MG/24HR PATCH TRANSDERM SCH (08:40)
[2016-08-07] MEDS: MULTIVITAMINS, THERA 1 EACH TAB PO SCH (08:40)
[2016-08-07] MEDS: VENLAFAXINE HCL ER 150 MG CAP PO SCH ×2 (08:40→20:28)
[2016-08-07] MEDS: CALCIUM CARB-VIT D 500MG-200UN 1 EACH TAB PO SCH (08:40)
[2016-08-07] MEDS: IPRATROPIUM-ALBUTEROL 3 ML NEB INHALATION SCH ×4 (09:14→19:05)
[2016-08-07] MEDS: BUTALB/APAP/CAFF 50-325-40MG TAB PO PRN (09:37)
[2016-08-07 10:39] VITALS: BMI 38.5
[2016-08-07 12:40] LABS: Glucose,Whole Blood 210 mg/dL (75-99)
--- NOTE | 2016-08-07 12:58 | CT ---
EXAMINATION TYPE: CT brain w con DATE OF EXAM: 08/07/2016 12:24 PM COMPARISON: Prior head CT 06 August 2016 HISTORY: Lt cerebellar lesion CT DLP: 1121 mGycm Automated exposure control for dose reduction was used. CONTRAST: CT scan of the head is performed with IV Contrast, patient injected with 100 ml mL of Omnipaque 300. FINDINGS: There is no abnormal enhancing mass or midline shift identified. The ventricles and sulci are within normal limits in size. Low-attenuation is seen within the occipital lobes as on prior exam. Low-att enuation within the left cerebellar hemisphere is somewhat less conspicuous. The globes are intact an d the visualized sinuses are clear. IMPRESSION: Similar findings to previous exam. Findings could be due to ischemia, consider brain MRI as indicated .
--- NOTE | 2016-08-07 15:07 | P.PN ---
Subjective 55-year-old female patient with history of perforated diverticulitis with abscess formation for which the patient was taken to the operating room on 08/01 and the patient underwent a sigmoid colectomy and end colostomy. Today the patient is postop day #5. Note that an epidural catheter was also inserted at the time of the surgery and the catheter was discontinued on the 08/03/2016. I refer to the anesthesiologist note on the catheter insertion process which was rather difficult and the insertional site was at L3-L4 and apparently during the verification of the placement of the epidural needle a 2 amounts of air was injected. In any rate, as the patient was recovering from her surgery, the patient developed slurred speech, confusion, lethargy and the stroke was suspected and the patient was immediately taken to the CAT scan of the brain that showed no evidence of any intraparenchymal hemorrhage or mass. The patient had multiple air bubbles within the CSF space of the left frontal and parietal lobes. This was again thought to be iatrogenic probably related to the epidural catheter insertion. Furthermore, the patient had 2 bouts of seizures, at 5 PM and 6 PM last night and these were essentially self-limiting seizures that lasted for few seconds. The patient was brought into the intensive care unit for that reason she was placed on IV Keppra. A follow-up CAT scan was ordered for today. A neurology consultation was also obtained. This morning, the patient is awake and alert and she is following commands and answering questions appropriately. She did not have any further episodes of seizures since yesterday. She is able to swallow and she was switched to oral Keppra. She remains on 100% nonrebreather facemask and high FiO2 is being applied per neurology's recommendations in regards to her pneumocephalus. She is not having any respiratory distress. No cough or sputum production. No chest pain.. Neurologic exam is essentially nonfocal at this point and she is moving all 4 extremities without any limitation. No slurred speech. Her colostomy site is functional at this point and the surgical wound site is essentially clean. She is on broad-spectrum antibiotics and she is currently receiving IV Zosyn and daptomycin. The intraoperative cultures were obtained showed enterococcus faecium/VRE and Enterococcus faecalis. The patient remains hemodynamically stable at this point. On 08/07/2016 the patient is being seen in follow-up. Neurologically she is doing great. The patient is speaking without any major difficulties. No change in mental status. No focal neurological deficits. No seizure activity has been noted. A subsequent follow-up CAT scan of the brain was done with contrast and that showed no abnormal enhancing mass or midline shift. The ventricles were within normal limits. Low attenuation within the occipital lobes and within the left cerebellar hemispheres. No evidence of any air within the subarachnoid space. The patient me what is doing well. Her diet is being advanced. No nausea or vomiting. Colostomy site is functional. She is on daptomycin regarding VRE and her abdominal wound. The surgical wound itself is dry clean and intact. No other issues for now. Objective - Vital Signs Vital signs: Vital Signs Temp 98.2 F 08/07/16 12:00 Pulse 79 08/07/16 13:03 Resp 12 08/07/16 12:00 BP 104/64 08/07/16 12:00 Pulse Ox 94 L 08/07/16 12:00 Intake & Output 08/06/16 08/07/16 08/07/16 18:59 06:59 18:59 Intake Total 620 690.0 90.0 Output Total 810 2160 575 Balance -190 -1470.0 -485.0 Weight 95.6 kg 95.6 kg Intake: IV 590 210.0 90.0 DAPTOmycin 500 mg In 50 Sodium Chloride 0.9% 50 ml @ 100 mls/hr IV DAILY@ 1700 [facility] Rx#:[id number] Magnesium Sulfate-D5w Pmx 200 1 gm In Dextrose/Water 1 100ml.bag @ 100 mls/hr IVPB Q1H [facility] Rx#: [id number] NS 240 160 40 Piperacillin-Tazobactam 3 100 50.0 50.0 .375 gm In Dextrose/Water 1 50ml.bag @ 12.5 mls/hr IVPB Q8HR [facility] Rx#: [id number] Oral 30 480 Output: Drainage 30 Abdomen 30 Urine 810 2160 515 Stool 30 Other: Voiding Method Indwelling Catheter Indwelling Catheter Indwelling Catheter - Exam Head exam was generally normal. There was no scleral icterus or corneal arcus. Mucous membranes were moist.Neck was supple and without jugular venous distension, thyromegaly, or carotid bruits. Carotids were easily palpable bilaterally. There was no adenopathy.Lungs were clear to auscultation and percussion, and with normal diaphragmatic excursion. No wheezes or rales were noted. Cardiac exam revealed the PMI to be normally situated and sized. The rhythm was regular and no extrasystoles were noted during several minutes of auscultation. The first and second heart sounds were normal and physiologic splitting of the second heart sound was noted. There were no murmurs, rubs, clicks, or gallops. Abdomen is soft and the surgical wound site is clean and the colostomy site is functional and viable at this point. No direct tenderness. No rebound tenderness. No guarding.Examination of the extremities revealed easily palpable radial, femoral and pedal pulses. There was no cyanosis , clubbing or edema. Neurologically, the patient's OA3 and there are no focal neurological deficit at this point. - Labs CBC & Chem 7: 08/07/16 04:43 08/07/16 04:43 Labs: Abnormal Lab Results - Last 24 Hours (Table) 08/06/16 08/06/16 08/07/16 Range/Units 17:31 20:14 04:43 WBC 11.6 H (3.8-10.6) k/uL Neutrophils # 9.9 H (1.3-7.7) k/uL Chloride (98-107) mmol/L Carbon Dioxide (22-30) mmol/L Glucose (74-99) mg/dL POC Glucose (mg/dL) 165 H 169 H (75-99) mg/dL 08/07/16 08/07/16 08/07/16 Range/Units 04:43 07:46 12:27 WBC (3.8-10.6) k/uL Neutrophils # (1.3-7.7) k/uL Chloride 97 L (98-107) mmol/L Carbon Dioxide 33 H (22-30) mmol/L Glucose 168 H (74-99) mg/dL POC Glucose (mg/dL) 150 H 210 H (75-99) mg/dL Assessment and Plan Plan: Impression 1 acute pneumocephalus, likely iatrogenic and related to epidural catheter manipulation On 08/07/2016 the patient is doing very well and has no neurological deficit. Subsequent CAT scan of the brain has shown no evidence of any pneumocephalus. 2 acute seizure, currently on Keppra, EEG from yesterday showed diffuse pattern/ slowing and there was no evidence of any epileptiform focus. 3 acute change in mental status with strokelike symptoms which is essentially recovered. Follow-up CAT scan of the brain is pending. Initial CAT scan did not show any acute stroke and there was evidence of pneumocephalus involving the left frontal and parietal area. This is thought to be the underlying cause for this patient's neurological symptoms. On 08/07/2016 the patient's mental status is back to his normal. 4 complicated sigmoid diverticulitis with abscess formation status post sigmoid colectomy and diverting colostomy. At the abdominal cultures are showing enterococcus/VRE and currently the patient is on a combination of Zosyn and daptomycin 5 colon cancer history of status post right hemicolectomy 6 COPD 7 hyperlipidemia 8 depression 9 migraine Plan Neurologically the patient is doing well. The follow-up CAT scan results of the head were noted. No ongoing neurologic complications at this point. The patient is on Keppra. EEG was noted and there is no activity in terms of seizures. Continue Zosyn and daptomycin and Diflucan. Stress dose hydrocortisone which will be gradually tapered. We'll continue to follow make further recommendations based on her progress. Neurology on the case. General surgeries on the case. ID is also on the case. The patient can be moved out of the intensive care unit today.
--- NOTE | 2016-08-07 15:43 | P.PN ---
Subjective Principal diagnosis: Perforated diverticulitis with abscess Patient is a 55-year-old white female admitted with perforated diverticulitis with abscess status post Logan's procedure with sigmoid colectomy and end colostomy with drainage of abscess, postop day #6. Patient is sitting up in a chair and reports feeling better. Patient currently complains of a frontal headache but states pain is tolerable. No further seizure activity. Denies chills, fevers, nausea, vomiting, shortness of breath, or chest pain. Incisional pain controlled. Passing flatus with light brown stool in her colostomy bag. Denies numbness or tingling. Urinating without difficulty. Tolerating soft diet. Afebrile. WBC decreased to 11.6. Hemoglobin stable at 12.9. Objective - Vital Signs Vital signs: Vital Signs Temp 98.2 F 08/07/16 12:00 Pulse 76 08/07/16 15:30 Resp 12 08/07/16 12:00 BP 104/64 08/07/16 12:00 Pulse Ox 94 L 08/07/16 12:00 Intake & Output 08/06/16 08/07/16 08/07/16 18:59 06:59 18:59 Intake Total 620 690.0 90.0 Output Total 810 2160 575 Balance -190 -1470.0 -485.0 Weight 95.6 kg 95.6 kg Intake: IV 590 210.0 90.0 DAPTOmycin 500 mg In 50 Sodium Chloride 0.9% 50 ml @ 100 mls/hr IV DAILY@ 1700 [facility] Rx#:[id number] Magnesium Sulfate-D5w Pmx 200 1 gm In Dextrose/Water 1 100ml.bag @ 100 mls/hr IVPB Q1H [facility] Rx#: [id number] NS 240 160 40 Piperacillin-Tazobactam 3 100 50.0 50.0 .375 gm In Dextrose/Water 1 50ml.bag @ 12.5 mls/hr IVPB Q8HR [facility] Rx#: [id number] Oral 30 480 Output: Drainage 30 Abdomen 30 Urine 810 2160 515 Stool 30 Other: Voiding Method Indwelling Catheter Indwelling Catheter Indwelling Catheter - Exam GENERAL: Pt awake and alert, well-nourished, and in no acute distress. LUNGS: Breath sounds clear to auscultation bilaterally. No wheezes, rales, or rhonchi. HEART: Heart S1, S2, no S3 or S4. Regular rate and rhythm. No murmurs, rubs or gallops. ABDOMEN: Soft, mild incisional tenderness, nondistended, active bowel sounds. No guarding, no rebound. Ostomy pink and viable. Abdominal dressing dry and intact. Louie-Andre drain compressed with minimal serosanguineous drainage. NEUROLOGICAL: Pt oriented x 3. No focal deficits. - Labs CBC & Chem 7: 08/07/16 04:43 08/07/16 04:43 Labs: Abnormal Lab Results - Last 24 Hours (Table) 08/06/16 08/06/16 08/07/16 Range/Units 17:31 20:14 04:43 WBC 11.6 H (3.8-10.6) k/uL Neutrophils # 9.9 H (1.3-7.7) k/uL Chloride (98-107) mmol/L Carbon Dioxide (22-30) mmol/L Glucose (74-99) mg/dL POC Glucose (mg/dL) 165 H 169 H (75-99) mg/dL 08/07/16 08/07/16 08/07/16 Range/Units 04:43 07:46 12:27 WBC (3.8-10.6) k/uL Neutrophils # (1.3-7.7) k/uL Chloride 97 L (98-107) mmol/L Carbon Dioxide 33 H (22-30) mmol/L Glucose 168 H (74-99) mg/dL POC Glucose (mg/dL) 150 H 210 H (75-99) mg/dL Assessment and Plan Plan: Impression: 1. Perforated diverticulitis with abscess status post sigmoid colectomy with end colostomy and drainage of abscess abscess on 08/01/2016. Wound cultures positive for enterococcus/VRE. 2. Acute pneumocephalus, suspect iatrogenic and related to epidural catheter manipulation, resolved. 3. New onset seizures, currently on IV Keppra. No further seizure activity since admission to intensive care unit. 4. Acute metabolic encephalopathy, resolved. 5. History of colon cancer status post right hemicolectomy. Plan: 1. Continue soft foods. Continue local wound care. Continue IV antibiotics. Continue supportive treatment and pain management. Continue to follow with medical team. The above impression and plan have been discussed and directed by Dr. Caceres. Pb SHELTON acting as scribe for Dr. Caceres.
--- NOTE | 2016-08-07 17:06 | P.PN ---
Subjective This patient is a 55-year-old female who was evaluated yesterday and neurology consultation for evaluation of TIA versus stroke. Patient presented with symptoms of expressive aphasia. She was sent for computed tomography scan of the brain yesterday which failed to reveal any evidence of acute stroke. There was evidence of multiple air bubbles on the surface of the left parietal occipital region. The patient also yesterday evening had to generalized seizures. She was started on Keppra for anticonvulsant therapy. She was placed on nonrebreather mask with high FiO2 and transferred to the intensive care unit. Patient was sent for repeat computed tomography scan of the brain today which did reveal evidence of resolution and reabsorption of the air bubbles that was noted on the CAT scan yesterday. There was some abnormal areas of lucency involving the left cerebellar hemisphere. Computed tomography scan of the brain with contrast was recommended. Patient is now in the intensive care unit. She is following simple commands. She has had no further seizure activity today. She is sitting up in bed and is much more awake and alert today. She has had no further seizure activity today. Her Keppra blood level is pending from the laboratory. We will obtain a computed tomography scan of the brain with contrast tomorrow as recommended by radiology. As mentioned the small air bubbles that was seen on the CAT scan of the brain yesterday have completely resolved. Her Keppra level came back therapeutic at 6.0 yesterday. The patient is sitting up in chair next to her ICU bed today. She is able to follow all simple commands. She did undergo computed tomography scan of the brain with contrast which failed to reveal any enhancing lesions. It is recommended that she have an MRI of the brain after 8 weeks following abdominal surgery for further follow-up and assessment. We did review the results of the CAT scan today with the patient and her at bedside. She is being considered for discharge home possibly in 48 hours. We will continue to follow her progress closely in the intensive care unit. Overall prognosis at this time remains guarded. Objective - Vital Signs Vital signs: Vital Signs Temp 98.5 F 08/07/16 08:00 Pulse 76 08/07/16 09:14 Resp 12 08/07/16 09:00 BP 116/65 08/07/16 09:00 Pulse Ox 87 L 08/07/16 09:00 Intake & Output 08/06/16 08/07/16 08/07/16 18:59 06:59 18:59 Intake Total 620 690.0 65.0 Output Total 810 2160 455 Balance -190 -1470.0 -390.0 Weight 95.6 kg Intake: IV 590 210.0 65.0 DAPTOmycin 500 mg In 50 Sodium Chloride 0.9% 50 ml @ 100 mls/hr IV DAILY@ 1700 [facility] Rx#:[id number] Magnesium Sulfate-D5w Pmx 200 1 gm In Dextrose/Water 1 100ml.bag @ 100 mls/hr IVPB Q1H [facility] Rx#: [id number] NS 240 160 40 Piperacillin-Tazobactam 3 100 50.0 25.0 .375 gm In Dextrose/Water 1 50ml.bag @ 12.5 mls/hr IVPB Q8HR [facility] Rx#: [id number] Oral 30 480 Output: Drainage 30 Abdomen 30 Urine 810 2160 425 Other: Voiding Method Indwelling Catheter Indwelling Catheter - Exam Physical examination: PHYSICAL EXAMINATION: Patient is resting comfortably in bed. VITAL SIGNS: Blood pressure is [112/65]. Heart rate is [83]. Respiration is [15] . Temperature is [98.2]. HEENT: Head is atraumatic, neck is supple, there were no carotid bruits. CHEST: Lungs are clear to auscultation and percussion. CARDIAC: S1, S2 normal rate and rhythm. There is no murmur. ABDOMEN: Soft and nontender. Bowel sounds are present. EXTREMITIES: There is no pedal edema. Peripheral pulses are present. Neurological examination: Patient is examined in the intensive care unit today. She is alert and oriented 3. She is following all commands. Speech is clear. She is sitting and up in chair at bedside and is much more awake and alert today. Cranial nerves II through XII are grossly intact. Motor examination fails to reveal any focal weakness. Deep tendon reflexes are 1+ and symmetric. Plantar responses flexor bilaterally. - Labs CBC & Chem 7: 08/07/16 04:43 08/07/16 04:43 Labs: Abnormal Lab Results - Last 24 Hours (Table) 08/06/16 08/06/16 08/06/16 Range/Units 09:47 13:04 17:31 WBC (3.8-10.6) k/uL Neutrophils # (1.3-7.7) k/uL Chloride (98-107) mmol/L Carbon Dioxide (22-30) mmol/L Glucose (74-99) mg/dL POC Glucose (mg/dL) 111 H 147 H 165 H (75-99) mg/dL 08/06/16 08/07/16 08/07/16 Range/Units 20:14 04:43 04:43 WBC 11.6 H (3.8-10.6) k/uL Neutrophils # 9.9 H (1.3-7.7) k/uL Chloride 97 L (98-107) mmol/L Carbon Dioxide 33 H (22-30) mmol/L Glucose 168 H (74-99) mg/dL POC Glucose (mg/dL) 169 H (75-99) mg/dL 08/07/16 Range/Units 07:46 WBC (3.8-10.6) k/uL Neutrophils # (1.3-7.7) k/uL Chloride (98-107) mmol/L Carbon Dioxide (22-30) mmol/L Glucose (74-99) mg/dL POC Glucose (mg/dL) 150 H (75-99) mg/dL Assessment and Plan (1) TIA (transient ischemic attack) Status: Acute Code(s): G45.9 - TRANSIENT CEREBRAL ISCHEMIC ATTACK, UNSPECIFIED (2) Acute ischemic left middle cerebral artery (MCA) stroke Status: Acute Code(s): I63.512 - CEREB INFRC D/T UNSP OCCLS OR STENOS OF LEFT MID CEREB ART (3) Diverticulitis of intestine with perforation and abscess Status: Acute Code(s): K57.80 - DVTRCLI OF INTEST, PART UNSP, W PERF AND ABSCESS W/O BLEED (4) S/P right colectomy Status: Chronic Code(s): Z90.49 - ACQUIRED ABSENCE OF OTHER SPECIFIED PARTS OF DIGESTIVE TRACT (5) New onset seizure Status: Acute Code(s): R56.9 - UNSPECIFIED CONVULSIONS Plan: This patient is a 55-year-old female who was recently diagnosed with a perforated diverticulitis and abscess formation. General surgery has been following the patient and she underwent a sigmoid colectomy and end colostomy for perforation of diverticulum and abscess formation. She underwent surgery on 08/01/2016. Yesterday her epidural came out and she was noted this morning to have episode of headache and slurring of her speech. She was felt to have demonstrated evidence for possible TIA versus stroke. She was sent for a computed tomography scan of the brain today which revealed no evidence of acute stroke or hemorrhage. There was multiple small air bubble seen within the CSF space over the left frontal and parietal lobes. 4 small air bubbles were noted on the CAT scan films. Patient did undergo epidural placement in the epidural was removed recently. This likely is the cause for the finding of multiple air bubbles on the CAT scan of the brain films. We have recommended for anesthesia to see the patient today for follow-up. Her neurological exam otherwise at this time is nonfocal other than she does complain of headache. CAT scan films were reviewed and there is nonspecific ischemic changes noted in the left hemisphere and left cerebellar region of unclear etiology. We had recommended an MRI of the brain for further evaluation. Patient is unable to have a MRI of the brain due to recent abdominal surgery and placement of adilia. The air bubbles noted on the CAT scan should be reabsorbed spontaneously with time. She was sent for a repeat computed tomography scan of the brain today which revealed reveals reabsorption of the air. There was evidence of some lucency bilaterally as well as left cerebellar hemisphere. We have recommended that she have a computed tomography scan of the brain with contrast as recommended by radiology. Computed tomography scan of the brain with contrast was completed today. This scan fails reveal any evidence of enhancing mass lesion. Patient is more awake and alert today. She is able to answer all questions appropriately. She was sitting up in chair today. No further seizure activity has been noted. Her Keppra level did come back therapeutic. We are recommending that she be maintained on Keppra for at least 3-4 weeks before considering weaning her off. Case was discussed today at length with the patient as well as with Dr. Abad today. We recommend the patient to follow- up in the outpatient neurology clinic in 3-4 weeks. We will continue close neurological follow-up of this patient in the intensive care unit. Her overall prognosis at this time remains very guarded.
[2016-08-07 17:09] LABS: Glucose,Whole Blood 260 mg/dL (75-99)
[2016-08-07] MEDS: EZETIMIBE 10 MG TAB PO SCH (20:28)
[2016-08-07] MEDS: ATORVASTATIN 10 MG TAB PO SCH (20:28)
[2016-08-07] MEDS: DAPTOmycin 500 MG in SODIUM CHLORIDE 0.9% 50 ML IV SCH (20:29)
[2016-08-07 20:36] LABS: Glucose,Whole Blood 240 mg/dL (75-99)
--- NOTE | 2016-08-07 21:19 | P.PN ---
Subjective Principal diagnosis: VRE in wound culture This is a 55-year-old female recent hospitalization for COPD exacerbation. She states she was discharged home and then had a flareup of her diverticulitis which she has not had in many years. She states she went home on Thursday night and she went to [facility] and almost immediately she ended up staying in bed for the following 3 days. She came into [facility] emergency center with complaints of abdominal pain and no bowel movement for 5-6 days. CAT scan of the abdomen and pelvis showed just diffuse thickening of the sigmoid colon, collection between uterus and sigmoid colon which may be abscess. Patient was initially seen by Dr. Anand and she recommended surgical intervention at bedtime. Patient was then seen by Dr. Caceres recommended IV antibiotics. A repeat CAT scan of the abdomen on July 30 showed localized perforation with leak into the cul-de-sac and cephalad to bladder adjacent to the uterus. Extensive diverticulosis. Patient went to or on August [address] Gaffney underwent sigmoid colectomy with end colostomy for perforated diverticulitis with abscess. Patient states that her epidural came out last night. Spencer catheter has been removed and she has been urinating on her own without difficulty. She states she is up and ambulating in the hallway without difficulty. She is currently on clear liquid diet hoping that this will be advanced. She does have liquid stool in her colostomy bag. Initial white count was at 33 and currently down to 11.4. She has been afebrile. Blood cultures showing no growth. She was placed on daptomycin and Zosyn. 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 When she was seen she was feeling better. However today is developed seizures. She been seen by neurology. With history of colon cancer there's concern for potential underlying structural lung disease versus stroke. As discussed with the neurologist she is on many medications that could be linked to seizure. It is quite unlikely the current antibiotics are etiology. improved today no new symptoms. Objective - Vital Signs Vital signs: Vital Signs Temp 97.9 F 08/07/16 17:15 Pulse 84 08/07/16 19:15 Resp 16 08/07/16 17:15 BP 111/69 08/07/16 17:15 Pulse Ox 92 L 08/07/16 17:15 Intake & Output 08/07/16 08/07/16 08/08/16 06:59 18:59 06:59 Intake Total 690.0 170.0 Output Total 2160 730 Balance -1470.0 -560.0 Weight 95.6 kg 95.6 kg Intake: IV 210.0 170.0 NS 160 120 Piperacillin-Tazobactam 3 50.0 50.0 .375 gm In Dextrose/Water 1 50ml.bag @ 12.5 mls/hr IVPB Q8HR [facility] Rx#: [id number] Oral 480 Output: Drainage 30 Abdomen 30 Urine 2160 640 Stool 60 Other: Voiding Method Indwelling Catheter Indwelling Catheter - Exam Gen: This is a 55-year-old female. She is sitting up in bed and appears to be comfortable. She does not appear to be in any distress. HEENT: Head is atraumatic, normocephalic. Pupils equal, round. Sclerae is anicteric. Conjunctiva pink. Mucous members of the mouth are dry. NECK: Supple. No JVD. No lymphadenopathy. No thyromegaly. LUNGS: Clear to auscultation. No wheezes or rhonchi. No intercostal retractions. HEART: Regular rate and rhythm. No murmur. ABDOMEN: Soft. Bowel sounds are present. No masses. Mild tenderness to the right lower quadrant. Ostomy bag has liquid brown stool. BRITTA drain with serosanguineous drainage. EXTREMITIES: No pedal edema. No calf tenderness. Dorsalis pedis +2 bilaterally. NEUROLOGICAL: Patient is awake, alert Ox3 - Labs CBC & Chem 7: 08/07/16 04:43 08/07/16 04:43 Labs: Abnormal Lab Results - Last 24 Hours (Table) 08/07/16 08/07/16 08/07/16 Range/Units 04:43 04:43 07:46 WBC 11.6 H (3.8-10.6) k/uL Neutrophils # 9.9 H (1.3-7.7) k/uL Chloride 97 L (98-107) mmol/L Carbon Dioxide 33 H (22-30) mmol/L Glucose 168 H (74-99) mg/dL POC Glucose (mg/dL) 150 H (75-99) mg/dL 02/02/17 02/02/17 02/02/17 Range/Units 12:27 17:06 20:34 WBC (3.8-10.6) k/uL Neutrophils # (1.3-7.7) k/uL Chloride (98-107) mmol/L Carbon Dioxide (22-30) mmol/L Glucose (74-99) mg/dL POC Glucose (mg/dL) 210 H 260 H 240 H (75-99) mg/dL Assessment and Plan (1) Diverticulitis of intestine with perforation and abscess Narrative/Plan: 55-year-old woman who had difficulties with perforated diverticulum and abscess. Is now status post colostomy. Culture showed evidence of the area of her wound and antibiotic therapy was altered to daptomycin and Zosyn. She's been tolerating this well. Will plan 10 days. However she's now had seizure-like activity today. She's been seen by neurology. Kefelyra has been added. She is on multiple agents that could be of concern. Computed tomography scan is reviewed and shows evidence of the effects of her epidural. MRI is requested to ensure there is no structural changes within the brain with her history of prior colon cancer. Current antibiotics continue. She seems comfortable today. We will get out of ICU today since she is doing better She is afebrile and her white cell count is decreased down to 11.6. Status: Acute
[2016-08-08] MEDS: PIPERACILLIN-TAZOBACTAM 3.375 GM in DEXTROSE/WATER 1 50ML.BAG IVPB SCH ×3 (00:12→16:59)
[2016-08-08] MEDS: ZOLPIDEM 5 MG TAB PO PRN (00:14)
[2016-08-08] MEDS: NICOTINE POLACRILEX 2 MG GUM BUCCAL SCH ×4 (02:17→17:03)
[2016-08-08 07:03] LABS: Basophils % (A) 0 %; CH 28.8; CHCM 31.6; Eosinophils # (A) 0.2 k/uL (0-0.7); Eosinophils % (A) 2 %; HCT 36.9 % (34.0-46.0); HDW 2.47; HGB 11.7 gm/dL (11.4-16.0); Luc # (Auto) 0.12; Luc % (Auto) 1; Lymphocytes # (A) 2.4 k/uL (1.0-4.8); Lymphocytes % (A) 23 %; MCHC 31.7 g/dL (31.0-37.0); MCV 91.6 fL (80.0-100.0); Mean Platelet Volume 6.7; Monocytes # (A) 0.5 k/uL (0-1.0); Monocytes % (A) 5 %; Neutrophils # (A) 7.1 k/uL (1.3-7.7); Neutrophils % (A) 69 %; RBC 4.03 m/uL (3.80-5.40); RDW 14.2 % (11.5-15.5); WBC 10.3 k/uL (3.8-10.6); WBC (Perox) 11.04
[2016-08-08 07:24] LABS: Anion Gap 10 mmol/L; Blood Urea Nitrogen 12 mg/dL (7-17); Calcium 8.5 mg/dL (8.4-10.2); Carbon Dioxide 34 mmol/L (22-30); Chloride 97 mmol/L (98-107); Glucose 126 mg/dL (74-99); Non-African American GFR(MDRD) >60 (>60 ml/min/1.73 sqM); Potassium 3.6 mmol/L (3.5-5.1); Sodium 141 mmol/L (137-145)
[2016-08-08 07:30] LABS: Glucose,Whole Blood 131 mg/dL (75-99)
--- NOTE | 2016-08-08 07:50 | PN ---
DATE OF SERVICE: 08/07/2016 PRESENTING COMPLAINT: Tired. INTERVAL HISTORY: This patient initially admitted with acute perforated diverticulitis with abscess that was drained from the cul-de-sac with a resultant colostomy. Subsequently patient developed severe headaches and seizures. Patient had found some air bubbles in the frontal and temporal lobe area. I spoke with Dr. Maguire today. He did not think that was responsible for seizures. Patient is on Keppra, doing well. Headaches are gone. Did tolerate a diet. Colostomy bag is working well. He has been out of the ICU. Review of systems done for constitutional, cardiovascular, GI, pulmonary; relevant findings as above. Current medications are reviewed that include IV daptomycin and Zosyn. On examination, temperature 97.9, pulse 82, respirations 16, blood pressure 111/69, pulse ox 92% on room air. GENERAL APPEARANCE: Lying in bed, awake, comfortable. EYES: Pupils equal. Conjunctivae normal. NECK: JVD not raised. RESPIRATORY: Effort normal. LUNGS: Fair air entry. CARDIOVASCULAR: First and second sounds normal. No edema. ABDOMEN: Soft, nontender. Liver and spleen not palpable. Colostomy bag with stool in place. PSYCHIATRY: Alert and oriented x3. Mood and affect normal. INVESTIGATIONS: White count 11.6. Potassium 4.1. BUN and creatinine are normal. ASSESSMENT: 1. New onset seizures discussed with Dr. Maguire does not feel that the air bubbles could have been responsible. 2. Acute sigmoid diverticulitis with perforation of abscess in the cul-de-sac followed by partial bowel resection and creation of colostomy. Cultures growing Enterococcus faecalis and Enterococcus faecium. 3. History of colon cancer with right hemicolectomy. 4. Chronic obstructive pulmonary disease in an ex-smoker. 5. Presbyesophagus diagnosed recently. 6. Anxiety, depression, not otherwise specified. 7. Adrenal insufficiency on presentation from patient being tapered off some recent steroids. PLAN: Continue current medication and treatment plan. Spoke to Dr. Caceres, ( ) patient can be discharged tomorrow. This discussed with Dr. Maguire. He said to keep the patient on Keppra. He will also do an MRI as an outpatient. Will cut the dose back of hydrocortisone today. Care was discussed with the patient.
[2016-08-08] MEDS: IPRATROPIUM-ALBUTEROL 3 ML NEB INHALATION SCH ×3 (08:17→15:56)
[2016-08-08] MEDS: SYMBICORT 80-4.5 MCG INHALER INHALATION PRN (08:20)
[2016-08-08] MEDS: INSULIN LISPRO (humaLOG) 300 UNIT/3 ML VIAL SQ SCH ×2 (08:40→16:50)
[2016-08-08] MEDS: levETIRAcetam 500 MG TAB PO SCH ×2 (08:44→20:07)
[2016-08-08] MEDS: VENLAFAXINE HCL ER 150 MG CAP PO SCH ×2 (08:44→20:07)
[2016-08-08] MEDS: FLUCONAZOLE 100 MG TAB PO SCH (08:44)
[2016-08-08] MEDS: THEOPHYLLINE 24 HOUR 300 MG CAP.ER.24H PO SCH (08:44)
[2016-08-08] MEDS: CALCIUM CARB-VIT D 500MG-200UN 1 EACH TAB PO SCH (08:44)
[2016-08-08] MEDS: PANTOPRAZOLE 40 MG TABLET PO SCH (08:44)
[2016-08-08] MEDS: CHOLECALCIFEROL 1,000 UNIT TAB PO SCH (08:45)
[2016-08-08] MEDS: NICOTINE 14MG/24HR PATCH TRANSDERM SCH (08:45)
[2016-08-08] MEDS: HYDROCORTISONE SUCCINATE 100 MG/2 ML VIAL IV SCH ×2 (08:45→16:59)
[2016-08-08] MEDS: HYDROcodone/APAP 7.5-325MG 1 EACH TAB PO PRN (09:50)
[2016-08-08 12:02] LABS: Glucose,Whole Blood 117 mg/dL (75-99)
[2016-08-08 12:06] VITALS: RESP 14; TEMP 98.4
[2016-08-08] MEDS ORDERED: LIDOCAINE 2% INJ 20 MG/ML SQ ONE (13:50)
[2016-08-08 13:57] VITALS: BP 137/84
--- NOTE | 2016-08-08 14:01 | P.PN ---
Subjective This patient is a 55-year-old female who was evaluated yesterday and neurology consultation for evaluation of TIA versus stroke. Patient presented with symptoms of expressive aphasia. She was sent for computed tomography scan of the brain yesterday which failed to reveal any evidence of acute stroke. There was evidence of multiple air bubbles on the surface of the left parietal occipital region. The patient also yesterday evening had to generalized seizures. She was started on Keppra for anticonvulsant therapy. She was placed on nonrebreather mask with high FiO2 and transferred to the intensive care unit. Patient was sent for repeat computed tomography scan of the brain today which did reveal evidence of resolution and reabsorption of the air bubbles that was noted on the CAT scan yesterday. There was some abnormal areas of lucency involving the left cerebellar hemisphere. Computed tomography scan of the brain with contrast was recommended. Patient is now in the intensive care unit. She is following simple commands. She has had no further seizure activity today. She is sitting up in bed and is much more awake and alert today. She has had no further seizure activity today. Her Keppra blood level is pending from the laboratory. We will obtain a computed tomography scan of the brain with contrast tomorrow as recommended by radiology. As mentioned the small air bubbles that was seen on the CAT scan of the brain yesterday have completely resolved. Her Keppra level came back therapeutic at 6.0 yesterday. The patient is sitting up in chair next to her ICU bed today. She is able to follow all simple commands. She did undergo computed tomography scan of the brain with contrast which failed to reveal any enhancing lesions. It is recommended that she have an MRI of the brain after 8 weeks following abdominal surgery for further follow-up and assessment. We did review the results of the CAT scan today with the patient and her at bedside. She is being considered for discharge home possibly in 48 hours. Patient was transferred out of the ICU yesterday. She continues to do well today in terms of her overall condition. She has had no further spells or seizures. He has noted her last anticonvulsant blood level was therapeutic. Patient is being considered for discharge home later today. She will follow-up in the outpatient neurology clinic in 3-4 weeks. Overall prognosis at this time remains guarded. Objective - Vital Signs Vital signs: Vital Signs Temp 98 F 08/08/16 02:00 Pulse 86 08/08/16 08:31 Resp 18 08/08/16 02:00 BP 123/75 08/08/16 02:00 Pulse Ox 93 L 08/08/16 02:00 Intake & Output 08/07/16 08/08/16 08/08/16 18:59 06:59 18:59 Intake Total 170.0 280 118 Output Total 730 30 Balance -560.0 250 118 Weight 95.6 kg Intake: IV 170.0 280 DAPTOmycin 500 mg In 50 Sodium Chloride 0.9% 50 ml @ 100 mls/hr IV DAILY@ 1700 [facility] Rx#:[id number] NS 120 180 Piperacillin-Tazobactam 3 50.0 50 .375 gm In Dextrose/Water 1 50ml.bag @ 12.5 mls/hr IVPB Q8HR [facility] Rx#: [id number] Oral 118 Output: Drainage 30 Abdomen 30 Urine 640 Stool 60 30 Other: Voiding Method Indwelling Catheter Toilet # Voids 3 - Exam Physical examination: PHYSICAL EXAMINATION: Patient is resting comfortably in bed. VITAL SIGNS: Blood pressure is [137/84]. Heart rate is [82]. Respiration is [15] . Temperature is [98.4]. HEENT: Head is atraumatic, neck is supple, there were no carotid bruits. CHEST: Lungs are clear to auscultation and percussion. CARDIAC: S1, S2 normal rate and rhythm. There is no murmur. ABDOMEN: Soft and nontender. Bowel sounds are present. EXTREMITIES: There is no pedal edema. Peripheral pulses are present. Neurological examination: Patient is examined in the intensive care unit today. She is alert and oriented 3. She is following all commands. Speech is clear. She is sitting and up in chair at bedside and is much more awake and alert today. Cranial nerves II through XII are grossly intact. Motor examination fails to reveal any focal weakness. Deep tendon reflexes are 1+ and symmetric. Plantar responses flexor bilaterally. - Labs CBC & Chem 7: 08/08/16 06:23 08/08/16 06:19 Labs: Abnormal Lab Results - Last 24 Hours (Table) 08/07/16 08/07/16 08/07/16 Range/Units 12:27 17:06 20:34 Chloride (98-107) mmol/L Carbon Dioxide (22-30) mmol/L Glucose (74-99) mg/dL POC Glucose (mg/dL) 210 H 260 H 240 H (75-99) mg/dL 08/08/16 08/08/16 Range/Units 06:19 06:55 Chloride 97 L (98-107) mmol/L Carbon Dioxide 34 H (22-30) mmol/L Glucose 126 H (74-99) mg/dL POC Glucose (mg/dL) 131 H (75-99) mg/dL Assessment and Plan (1) TIA (transient ischemic attack) Status: Acute Code(s): G45.9 - TRANSIENT CEREBRAL ISCHEMIC ATTACK, UNSPECIFIED (2) Acute ischemic left middle cerebral artery (MCA) stroke Status: Acute Code(s): I63.512 - CEREB INFRC D/T UNSP OCCLS OR STENOS OF LEFT MID CEREB ART (3) Diverticulitis of intestine with perforation and abscess Status: Acute Code(s): K57.80 - DVTRCLI OF INTEST, PART UNSP, W PERF AND ABSCESS W/O BLEED (4) S/P right colectomy Status: Chronic Code(s): Z90.49 - ACQUIRED ABSENCE OF OTHER SPECIFIED PARTS OF DIGESTIVE TRACT (5) New onset seizure Status: Acute Code(s): R56.9 - UNSPECIFIED CONVULSIONS Plan: This patient is a 55-year-old female who was recently diagnosed with a perforated diverticulitis and abscess formation. General surgery has been following the patient and she underwent a sigmoid colectomy and end colostomy for perforation of diverticulum and abscess formation. She underwent surgery on 08/01/2016. Yesterday her epidural came out and she was noted this morning to have episode of headache and slurring of her speech. She was felt to have demonstrated evidence for possible TIA versus stroke. She was sent for a computed tomography scan of the brain today which revealed no evidence of acute stroke or hemorrhage. There was multiple small air bubble seen within the CSF space over the left frontal and parietal lobes. 4 small air bubbles were noted on the CAT scan films. Patient did undergo epidural placement in the epidural was removed recently. This likely is the cause for the finding of multiple air bubbles on the CAT scan of the brain films. We have recommended for anesthesia to see the patient today for follow-up. Her neurological exam otherwise at this time is nonfocal other than she does complain of headache. CAT scan films were reviewed and there is nonspecific ischemic changes noted in the left hemisphere and left cerebellar region of unclear etiology. We had recommended an MRI of the brain for further evaluation. Patient is unable to have a MRI of the brain due to recent abdominal surgery and placement of adilia. The air bubbles noted on the CAT scan should be reabsorbed spontaneously with time. She was sent for a repeat computed tomography scan of the brain today which revealed reveals reabsorption of the air. There was evidence of some lucency bilaterally as well as left cerebellar hemisphere. We have recommended that she have a computed tomography scan of the brain with contrast as recommended by radiology. Computed tomography scan of the brain with contrast was completed today. This scan fails reveal any evidence of enhancing mass lesion. Patient is more awake and alert today. She is able to answer all questions appropriately. She was sitting up in chair today. No further seizure activity has been noted. Her Keppra level did come back therapeutic. We are recommending that she be maintained on Keppra for at least 3-4 weeks before considering weaning her off. Case was discussed today at length with the patient as well as with Dr. Abad today. Patient was transferred out of the intensive care unit yesterday. She continues to do well on the surgical floor. She is being considered for discharge home later today. We recommend the patient to follow-up in the outpatient neurology clinic in 3-4 weeks. We will continue close neurological follow-up of this patient in the intensive care unit. Her overall prognosis at this time remains very guarded.
--- NOTE | 2016-08-08 15:08 | P.PN ---
Subjective Patient is a 55-year-old white female admitted with perforated diverticulitis with abscess status post Logan's procedure with sigmoid colectomy and end colostomy with drainage of abscess, postop day #7. Patient is doing well. Patient still complains of frontal headache rated 5/10. No further seizure activity. Denies chills, fevers, nausea, vomiting, shortness of breath, or chest pain. Incisional pain controlled. Passing flatus with light brown stool in her colostomy bag. Denies numbness or tingling. Urinating without difficulty. Tolerating soft diet. Afebrile. WBC decreased to 10.3. Hemoglobin stable at 11.7. Objective - Vital Signs Vital signs: Vital Signs Temp 98.4 F 08/08/16 08:30 Pulse 82 08/08/16 13:56 Resp 14 08/08/16 08:30 BP 137/84 08/08/16 13:56 Pulse Ox 96 08/08/16 13:56 Intake & Output 08/07/16 08/08/16 08/08/16 18:59 06:59 18:59 Intake Total 170.0 280 354 Output Total 730 30 30 Balance -560.0 250 324 Weight 95.6 kg Intake: IV 170.0 280 DAPTOmycin 500 mg In 50 Sodium Chloride 0.9% 50 ml @ 100 mls/hr IV DAILY@ 1700 [facility] Rx#:[id number] NS 120 180 Piperacillin-Tazobactam 3 50.0 50 .375 gm In Dextrose/Water 1 50ml.bag @ 12.5 mls/hr IVPB Q8HR [facility] Rx#: [id number] Oral 354 Output: Drainage 30 30 Abdomen 30 30 Urine 640 Stool 60 30 Other: Voiding Method Indwelling Catheter Toilet # Voids 3 - Exam GENERAL: Pt awake and alert, well-nourished, and in no acute distress. LUNGS: Breath sounds clear to auscultation bilaterally. No wheezes, rales, or rhonchi. HEART: Heart S1, S2, no S3 or S4. Regular rate and rhythm. No murmurs, rubs or gallops. ABDOMEN: Soft, mild incisional tenderness, nondistended, active bowel sounds. No guarding, no rebound. Ostomy pink and viable. Abdominal dressing dry and intact. Louie-Andre drain compressed with minimal serosanguineous drainage. NEUROLOGICAL: Pt oriented x 3. No focal deficits. - Labs CBC & Chem 7: 08/08/16 06:23 08/08/16 06:19 Labs: Abnormal Lab Results - Last 24 Hours (Table) 08/07/16 08/07/16 08/08/16 Range/Units 17:06 20:34 06:19 Chloride 97 L (98-107) mmol/L Carbon Dioxide 34 H (22-30) mmol/L Glucose 126 H (74-99) mg/dL POC Glucose (mg/dL) 260 H 240 H (75-99) mg/dL 08/08/16 08/08/16 Range/Units 06:55 11:52 Chloride (98-107) mmol/L Carbon Dioxide (22-30) mmol/L Glucose (74-99) mg/dL POC Glucose (mg/dL) 131 H 117 H (75-99) mg/dL Assessment and Plan Plan: Impression: 1. Perforated diverticulitis with abscess status post sigmoid colectomy with end colostomy and drainage of abscess abscess on 08/01/2016. Wound cultures positive for enterococcus/VRE. 2. Acute pneumocephalus, suspect iatrogenic and related to epidural catheter manipulation, resolved. 3. New onset seizures, currently on oral Keppra. No further seizure activity. 4. Acute metabolic encephalopathy, resolved. 5. History of colon cancer status post right hemicolectomy. Plan: 1. Discontinue BRITTA drain. Discontinue Telfa lilli. Continue soft foods. Continue local wound care. Continue IV antibiotics. Continue supportive treatment and pain management. Continue to follow with medical team. From surgical standpoint, patient is stable for discharge to home with follow-up in the office in 1 week. The above impression and plan have been discussed and directed by Dr. Caceres. Pb SHELTON acting as scribe for Dr. Caceres.
[2016-08-08 15:59] VITALS: PULSE 78
[2016-08-08] MEDS: MULTIVITAMINS, THERA 1 EACH TAB PO SCH (16:50)
[2016-08-08 16:56] LABS: Glucose,Whole Blood 156 mg/dL (75-99)
[2016-08-08] MEDS: DAPTOmycin 500 MG in SODIUM CHLORIDE 0.9% 50 ML IV SCH (17:00)
--- NOTE | 2016-08-08 18:24 | P.PN ---
Subjective Principal diagnosis: VRE in wound culture This is a 55-year-old female recent hospitalization for COPD exacerbation. She states she was discharged home and then had a flareup of her diverticulitis which she has not had in many years. She states she went home on Thursday night and she went to [facility] and almost immediately she ended up staying in bed for the following 3 days. She came into [facility] emergency center with complaints of abdominal pain and no bowel movement for 5-6 days. CAT scan of the abdomen and pelvis showed just diffuse thickening of the sigmoid colon, collection between uterus and sigmoid colon which may be abscess. Patient was initially seen by Dr. Anand and she recommended surgical intervention at bedtime. Patient was then seen by Dr. Caceres recommended IV antibiotics. A repeat CAT scan of the abdomen on July 30 showed localized perforation with leak into the cul-de-sac and cephalad to bladder adjacent to the uterus. Extensive diverticulosis. Patient went to or on August [address] Gaffney underwent sigmoid colectomy with end colostomy for perforated diverticulitis with abscess. Patient states that her epidural came out last night. Spencer catheter has been removed and she has been urinating on her own without difficulty. She states she is up and ambulating in the hallway without difficulty. She is currently on clear liquid diet hoping that this will be advanced. She does have liquid stool in her colostomy bag. Initial white count was at 33 and currently down to 11.4. She has been afebrile. Blood cultures showing no growth. She was placed on daptomycin and Zosyn. 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 When she was seen she was feeling better. However today is developed seizures. She been seen by neurology. With history of colon cancer there's concern for potential underlying structural lung disease versus stroke. As discussed with the neurologist she is on many medications that could be linked to seizure. It is quite unlikely the current antibiotics are etiology. improved today no new symptoms. Objective - Vital Signs Vital signs: Vital Signs Temp 98.4 F 08/08/16 08:30 Pulse 78 08/08/16 16:07 Resp 14 08/08/16 08:30 BP 137/84 08/08/16 13:56 Pulse Ox 96 08/08/16 13:56 Intake & Output 08/07/16 08/08/16 08/08/16 18:59 06:59 18:59 Intake Total 170.0 280 354 Output Total 730 30 90 Balance -560.0 250 264 Weight 95.6 kg Intake: IV 170.0 280 DAPTOmycin 500 mg In 50 Sodium Chloride 0.9% 50 ml @ 100 mls/hr IV DAILY@ 1700 BENSON Rx#:[id number] NS 120 180 Piperacillin-Tazobactam 3 50.0 50 .375 gm In Dextrose/Water 1 50ml.bag @ 12.5 mls/hr IVPB Q8HR BENSON Rx#: [id number] Oral 354 Output: Drainage 30 90 Abdomen 30 90 Urine 640 Stool 60 30 Other: Voiding Method Indwelling Catheter Toilet # Voids 3 - Exam Gen: This is a 55-year-old female. She is sitting up in bed and appears to be comfortable. She does not appear to be in any distress. HEENT: Head is atraumatic, normocephalic. Pupils equal, round. Sclerae is anicteric. Conjunctiva pink. Mucous members of the mouth are dry. NECK: Supple. No JVD. No lymphadenopathy. No thyromegaly. LUNGS: Clear to auscultation. No wheezes or rhonchi. No intercostal retractions. HEART: Regular rate and rhythm. No murmur. ABDOMEN: Soft. Bowel sounds are present. No masses. Mild tenderness to the right lower quadrant. Ostomy bag has liquid brown stool. BRITTA drain with serosanguineous drainage. EXTREMITIES: No pedal edema. No calf tenderness. Dorsalis pedis +2 bilaterally. NEUROLOGICAL: Patient is awake, alert Ox3 - Labs CBC & Chem 7: 08/08/16 06:23 08/08/16 06:19 Labs: Abnormal Lab Results - Last 24 Hours (Table) 08/07/16 08/08/16 08/08/16 Range/Units 20:34 06:19 06:55 Chloride 97 L (98-107) mmol/L Carbon Dioxide 34 H (22-30) mmol/L Glucose 126 H (74-99) mg/dL POC Glucose (mg/dL) 240 H 131 H (75-99) mg/dL 08/08/16 08/08/16 Range/Units 11:52 16:28 Chloride (98-107) mmol/L Carbon Dioxide (22-30) mmol/L Glucose (74-99) mg/dL POC Glucose (mg/dL) 117 H 156 H (75-99) mg/dL Laboratory Results WBC 10.3 k/uL (3.8-10.6) 08/08/16 06:23 RBC 4.03 m/uL (3.80-5.40) 08/08/16 06:23 Hgb 11.7 gm/dL (11.4-16.0) 08/08/16 06:23 Hct 36.9 % (34.0-46.0) 08/08/16 06:23 MCV 91.6 fL (80.0-100.0) 08/08/16 06:23 MCH 29.0 pg (25.0-35.0) 08/08/16 06:23 MCHC 31.7 g/dL (31.0-37.0) 08/08/16 06:23 RDW 14.2 % (11.5-15.5) 08/08/16 06:23 Plt Count 255 k/uL (150-450) 08/08/16 06:23 Neutrophils % 69 % 08/08/16 06:23 Lymphocytes % 23 % 08/08/16 06:23 Monocytes % 5 % 08/08/16 06:23 Eosinophils % 2 % 08/08/16 06:23 Basophils % 0 % 08/08/16 06:23 Neutrophils # 7.1 k/uL (1.3-7.7) 08/08/16 06:23 Lymphocytes # 2.4 k/uL (1.0-4.8) 08/08/16 06:23 Monocytes # 0.5 k/uL (0-1.0) 08/08/16 06:23 Eosinophils # 0.2 k/uL (0-0.7) 08/08/16 06:23 Basophils # 0.0 k/uL (0-0.2) 08/08/16 06:23 Hypochromasia Slight 07/31/16 07:34 PT 10.0 sec (9.0-12.0) 07/27/16 15:20 INR 1.0 (<1.1) 07/27/16 15:20 Sodium 141 mmol/L (137-145) 08/08/16 06:19 Potassium 3.6 mmol/L (3.5-5.1) 08/08/16 06:19 Chloride 97 mmol/L (98-107) L 08/08/16 06:19 Carbon Dioxide 34 mmol/L (22-30) H 08/08/16 06:19 Anion Gap 10 mmol/L 08/08/16 06:19 BUN 12 mg/dL (7-17) 08/08/16 06:19 Creatinine 0.80 mg/dL (0.52-1.04) 08/08/16 06:19 Est GFR (MDRD) Af Amer >60 (>60 ml/min/1.73 sqM) 08/08/16 06:19 Est GFR (MDRD) Non-Af >60 (>60 ml/min/1.73 sqM) 08/08/16 06:19 Glucose 126 mg/dL (74-99) H 08/08/16 06:19 POC Glucose (mg/dL) 156 mg/dL (75-99) H 08/08/16 16:28 POC Glu Pattern Chain Builder ID Idania Gonzales 08/08/16 16:28 Plasma Lactic Acid Nadir 0.9 mmol/L (0.7-2.0) 07/26/16 17:15 Calcium 8.5 mg/dL (8.4-10.2) 08/08/16 06:19 Phosphorus 3.0 mg/dL (2.5-4.5) 08/08/16 06:19 Magnesium 2.0 mg/dL (1.6-2.3) 08/08/16 06:19 Total Bilirubin 0.4 mg/dL (0.2-1.3) 08/02/16 06:37 AST 28 U/L (14-36) 08/02/16 06:37 ALT 75 U/L (9-52) H 08/02/16 06:37 Alkaline Phosphatase 52 U/L (38-126) 08/02/16 06:37 Total Protein 4.5 g/dL (6.3-8.2) L 08/02/16 06:37 Albumin 2.5 g/dL (3.5-5.0) L 08/02/16 06:37 Amylase 31 U/L (30-110) 07/26/16 16:30 Lipase 34 U/L (23-300) 07/26/16 16:30 Cortisol 8 ug/dL 07/27/16 15:20 Urine Color Yellow 07/26/16 16:30 Urine Appearance Cloudy (Clear) H 07/26/16 16:30 Urine pH 6.0 (5.0-8.0) 07/26/16 16:30 Ur Specific [place] 1.024 (1.001-1.035) 07/26/16 16:30 Urine Protein 2+ (Negative) H 07/26/16 16:30 Urine Glucose (UA) Negative (Negative) 07/26/16 16:30 Urine Ketones 1+ (Negative) H 07/26/16 16:30 Urine Blood Small (Negative) H 07/26/16 16:30 Urine Nitrate Negative (Negative) 07/26/16 16:30 Urine Bilirubin 1+ (Negative) H 07/26/16 16:30 Urine Urobilinogen 2.0 mg/dL (<2.0) 07/26/16 16:30 Ur Leukocyte Esterase Trace (Negative) H 07/26/16 16:30 Urine RBC 5 /hpf (0-5) 07/26/16 16:30 Urine WBC 13 /hpf (0-5) H 07/26/16 16:30 Ur Squamous Epith Cells 26 /hpf (0-4) H 07/26/16 16:30 Urine Bacteria Moderate /hpf (None) H 07/26/16 16:30 Hyaline Casts 6 /lpf (0-2) H 07/26/16 16:30 Urine Mucus Many /hpf (None) H 07/26/16 16:30 Levetiracetam 6.0 ug/mL (3.0-60.0) 08/06/16 04:43 Microbiology 08/01/16 13:45 Abdomen Anaerobic Culture - Final Anaerobic Gm Negative Bacilli 08/01/16 13:45 Abdomen Gram Stain - Final 08/01/16 13:45 Abdomen Wound Culture - Final Enterococcus faecium VRE Enterococcus faecalis 07/26/16 17:15 Blood Blood Culture - Final No Growth after 144 hours 07/26/16 16:30 Urine,Clean Catch Urine Culture - Final Assessment and Plan (1) Diverticulitis of intestine with perforation and abscess Narrative/Plan: 55-year-old woman who had difficulties with perforated diverticulum and abscess. Is now status post colostomy. Culture showed evidence of the area of her wound and antibiotic therapy was altered to daptomycin and Zosyn. She's been tolerating this well. Will plan 10 days. However she's now had seizure-like activity today. She's been seen by neurology. Bailey has been added. She is on multiple agents that could be of concern. Computed tomography scan is reviewed and shows evidence of the effects of her epidural. MRI is requested to ensure there is no structural changes within the brain with her history of prior colon cancer. Current antibiotics continue. She seems comfortable today. Continues to improve. Likely will discharge to home. We will come to the [facility] for her outpatient intravenous antibiotic therapy with daptomycin. Piperacillin tazobactam is transitioned to Augmentin. Follow-up with surgeon. She also follow-up with ID given her IV access issues and evaluation to ensure she hasn't therapy. Status: Acute
[2016-08-08] MEDS ORDERED: HYDROcodone/APAP 7.5-325MG 1 EACH TAB PO PRN ×3 (19:48→19:49)
[2016-08-08] MEDS: ATORVASTATIN 10 MG TAB PO SCH (20:07)
[2016-08-08] MEDS: EZETIMIBE 10 MG TAB PO SCH (20:08)
--- NOTE | 2016-08-11 12:30 | IR ---
PICC LINE PLACEMENT: HISTORY: Infection requiring long-term antibiotic therapy PROCEDURE: Ultrasound and fluoroscopic guidance of PICC line placement. COMPLICATIONS: None ANESTHESIA: 1. 1% Lidocaine locally. FINDINGS/TECHNIQUE: The procedure was explained to the patient. The risks, complications, benefits and alternatives were discussed and any questions were answered. Informed consent was obtained. The patient was placed supine on the fluoroscopic table and prepped and draped in the usual sterile [facility] ion. Utilizing a 21 gauge needle and sonographic and fluoroscopic guidance, access in the vein was achieved and there is placement of a 0.018 guidewire. The vein is patent. A 4-F sheath was placed o nataliia the guidewire. The guidewire and dilator were removed and a 4-F. PICC line was placed through th e sheath with the tip at the level of the SVC. The sheath was removed, the catheter was flushed and sutured into position. The patient was stable throughout the procedure and remained stable upon disc harge from the Department of Radiology. The vein puncture was patent under ultrasound. A haney scale image was obtained to document patency of the vein punctured. All elements of the maximal barrier technique were utilized. FLUOROSCOPY TIME: 0.2 minute IMPRESSION: Successful PICC line placement under ultrasound and fluoroscopic guidance.
--- NOTE | 2016-08-13 11:33 | DS ---
DATE OF ADMISSION: 07/26/2016 DATE OF DISCHARGE: 08/08/2016 FINAL DIAGNOSES: 1. New onset of generalized tonic-clonic seizures. 2. Acute sigmoid diverticulitis with perforation of the abscess in the cul-de-sac followed by partial bowel resection and creation of colostomy with cultures growing Enterococcus faecalis and Enterococcus faecium, present at admission. 3. History of colon cancer in the right hemicolectomy. 4. Chronic obstructive pulmonary disease in an ex-smoker. 5. Presbyesophagus, diagnosed recently. 6. Anxiety, depression, not otherwise specified. 7. Adrenal insufficiency on presentation from patient being tapered off recent steroids, present on admission. HOSPITAL COURSE: This pleasant lady was just discharged from the hospital following COPD exacerbation, readmitted with abdominal pain, found to have a perforated diverticulitis with localized abscess. After initial wait and watch and antibiotics, patient is not getting better. Patient was taken to the OR, abscess was treated by Dr. Caceres and a colostomy was placed. Patient subsequently had headaches and seizure activity, some air bubbles were noted on the CT scan. When I discussed with Dr. Maguire, he did not feel that was the cause. Patient has been put on seizure medications. Patient is tolerating a diet. Colostomy is functioning well. On exam, abdomen is soft, nontender. LUNGS: Fair air entry. INVESTIGATION: CT scan of the brain showing some lower attenuation in the occipital lobes, not a clear-cut finding. Dr. Maguire will be doing an outpatient. MRI. Patient's CT scan the day prior that is actually on 08/05/2016 showed multiple air bubbles in the CSF space in the left frontal and parietal lobe but this was 48 hours after the epidural was taken off. Patient's EEG did not show any obvious seizure activity. I discussed the care with the patient. CONSULTATION: 1. Dr. Lloyd from Infectious Disease. 2. Dr. Myles from Critical Care. 3. Dr. Miguel Maguire from Neurology. 4. Dr. Caceres from General Surgery. DISCHARGE MEDICATIONS: 1. Ventolin 2.5 q.6 p.r.n. 2. Symbicort 80/4.5 two puffs b.i.d. p.r.n. 3. Os-Fantasma 500 with D 1 tablet p.o. daily. 4. Vitamin D3 two thousand units p.o. daily. 5. Vytorin 10/10 one tablet p.o. q.h.s. 6. [place] 7.5 one tablets q.4 p.r.n. 7. Multivitamin 1 tablet p.o. daily at noon. 8. Fioricet 1 to 2 capsules p.o. q.4 p.r.n. 9. Topamax 50 mg p.o. b.i.d. p.r.n. 10. Ventolin HFA 1 to 2 puffs q.6 p.r.n. 11. Xanax 0.25 p.o. q.i.d. p.r.n. 12. Effexor-XR 150 mg p.o. b.i.d. 13. DuoNeb q.i.d. 14. Nicotine 14 patch daily. 15. Nicorette 2 mg gum q.4 p.r.n. 16. Protonix 40 mg p.o. b.i.d. 17. Theophylline -24 three hundred mg p.o. daily. 18. Augmentin 875 one tablet p.o. q.12 fourteen tablets. 19. Daptomycin 500 mg IV daily for 5 days. 20. [place] 7.5 one tablet q.6 p.r.n. 21. Keppra 500 mg q.12. 22. Prednisone 20 mg for 5 days. Follow up with Dr. Dior Maguire in 3 weeks; Dr. Luque in 2 days; Dr. Caceres in 1 week; Dr. Lloyd per his recommendation. CBC, BMP in 3 to 5 days. MRI is being arranged by Dr. Maguire. At the time of discharge, patient's white count is 10.3. DC planning more than 35 minutes.
== END 2016-08-08 20:23 | disposition home health service (06) | DRG 329 ==
LOC: EC 14:03 → 3SUR 19:00 → 6SEL 08-05 15:08 → 6ICU 08-05 20:57 → 3SUR 08-07 16:40 → UNDODISIN 08-08 15:09
PROVIDERS: ADMIT Hospitalist; ATTEND Hospitalist
PROC: 0D1M0Z4 Bypass Descending Colon to Cutaneous, Open Approach (ICD-10-PCS; 2016-08-01)
PROC: 0DTN0ZZ Resection of Sigmoid Colon, Open Approach (ICD-10-PCS; principal; 2016-08-01 08:40)
PROC: 02HV33Z Insertion of Infusion Device into Superior Vena Cava, Percutaneous Approach (ICD-10-PCS; 2016-08-08 13:40)
DX: K57.20 Diverticulitis of large intestine with perforation and abscess without bleeding (principal); G93.41 Metabolic encephalopathy; E27.40 Unspecified adrenocortical insufficiency; I95.9 Hypotension, unspecified; G93.89 Other specified disorders of brain; G40.409 Other generalized epilepsy and epileptic syndromes, not intractable, without status epilepticus; K22.8 Other specified diseases of esophagus; E66.9 Obesity, unspecified; E78.5 Hyperlipidemia, unspecified; F17.200 Nicotine dependence, unspecified, uncomplicated; F32.9 Major depressive disorder, single episode, unspecified; F41.9 Anxiety disorder, unspecified; G43.909 Migraine, unspecified, not intractable, without status migrainosus; N28.9 Disorder of kidney and ureter, unspecified; G97.1 Other reaction to spinal and lumbar puncture; J44.9 Chronic obstructive pulmonary disease, unspecified; K57.90 Diverticulosis of intestine, part unspecified, without perforation or abscess without bleeding; T38.0X5A Adverse effect of glucocorticoids and synthetic analogues, initial encounter; B95.2 Enterococcus as the cause of diseases classified elsewhere; Z16.21 Resistance to vancomycin; Z68.35 Body mass index [BMI] 35.0-35.9, adult; Z85.038 Personal history of other malignant neoplasm of large intestine; Z79.899 Other long term (current) drug therapy; Z82.49 Family history of ischemic heart disease and other diseases of the circulatory system; Y92.9 Unspecified place or not applicable
CPT/HCPCS: 36415; 36569; 70450; 70460; 71020; 72193; 74000; 74177; 74220; 76937; 77001; 80048; 80053; 80177; 81001; 82150; 82533; 82550; 82553; 83036; 83605; 83690; 83735; 83880; 84100; 84484; 85025; 85379; 85610; 85730; 87040; 87070; 87075; 87077; 87086; 87186; 87205; 88307; 90686; 93005; 94640; 94760; 95819; 96361; 96365; 96375; 96376; 99285; 99291

== ENCOUNTER 2016-11-13 08:25 | Day surgery (SDC) | payer OTHER ==
[2016-11-12 11:37] VITALS: BMI 35.1
[~2016-11-13 08:25] MED LIST: LACTATED RINGERS 1,000 ML IV SCH
[2016-11-13 08:44] VITALS: TEMP 98.2
[2016-11-13] MEDS ORDERED: LIDOCAINE 1% 20 ML VIAL (10MG/ML) FOR IV START INTRADERMA ONE (09:00)
[2016-11-13 09:03] LABS: Glucose,Whole Blood 130 mg/dL (75-99)
[2016-11-13] MEDS ORDERED: PROPOFOL 10 MG/ML 20 ML VIAL IV ONE (09:07)
--- NOTE | 2016-11-13 09:13 | P.GSHP ---
History of Present Illness H&P Date: 11/13/16 Chief Complaint: History of perforated diverticulitis This a 55-year-old female who has previous history of perforated diverticulitis with Kinza procedure. Patient rents today for colonoscopy. We anticipate reversing her colostomy tomorrow. - Constitutional Constitutional: Reports as per HPI Past Medical History Past Medical History: Asthma, Cancer, COPD, Hyperlipidemia, Myocardial Infarction ([place]), Seizure Disorder Additional Past Medical History / Comment(s): migraines, colon cancer status post bowel resection without need for chemotherapy ,LAST SEIZUE AUG 30, 2016, [place] EKG 2013 Last Myocardial Infarction Date:: JANUARY2003 PER EKG History of Any Multi-Drug Resistant Organisms: VRE Date of last positivie culture/infection: 08/01/16 MDRO Source:: Abdomen Past Surgical History: Appendectomy, Bowel Resection, Cholecystectomy, Hernia Repair, Tonsillectomy Additional Past Surgical History / Comment(s): COLOSTOMY Past Anesthesia/Blood Transfusion Reactions: Previous Problems w/ Anesthesia Additional Past Anesthesia/Blood Transfusion Reaction / Comment(s): "spinal anesthesia WITH COLON SURGERY- WHEN THE TUBE WAS REMOVED AIR BUBBLE WENT THE BRAIN. SHE WAS TRANSFERED TO ICU BECAUSE OF SEIZURES" AUG 2016" Past Psychological History: Anxiety, Depression Smoking Status: Current every day smoker Past Alcohol Use History: Rare Additional Past Alcohol Use History / Comment(s): QUIT, BUT STARTED BACK SMOKING RECENTLY APPROXIMATELY 1/2PPD Past Drug Use History: None Reported - Past Family History Mother Family Medical History: No Reported History Father Family Medical History: COPD, Coronary Artery Disease (CAD) Medications and Allergies Home Medications Medication Instructions Recorded Confirmed Type Budesonide/Formoterol Fumarate 2 puff INHALATION RT-BID PRN 09/15/14 11/12/16 History [Symbicort 80-4.5 Mcg Inhaler] Calcium Carb-Vit D 500Mg-200Un 1 tab PO DAILY 09/15/14 11/12/16 History [Oscal 500+D] Cholecalciferol [Vitamin D3] 2,000 unit PO DAILY 09/15/14 11/12/16 History Ezetimibe/Simvastatin [Vytorin 1 tab PO HS 09/15/14 11/12/16 History 10-10 mg Tablet] HYDROcodone/APAP 7.5-325MG [[place] 1 tab PO Q4H PRN 09/15/14 11/12/16 History 7.5-325] Multivitamins, Thera [Multivitamin 1 tab PO DAILY@1200 09/15/14 11/12/16 History (formulary)] Butalb/Acetaminophen/Caffeine 1 - 2 cap PO Q4HR PRN 07/19/15 11/12/16 History [Fioricet 50-300-40 mg Capsule] Topiramate [Topamax] 50 mg PO BID PRN 07/19/15 11/12/16 History ALPRAZolam [Xanax] 0.25 mg PO QID PRN 07/16/16 11/12/16 History Venlafaxine HCl [Effexor XR] 150 mg PO BID 07/16/16 11/12/16 History predniSONE 5 mg PO DAILY 11/13/16 11/13/16 History Allergies Allergy/AdvReac Type Severity Reaction Status Date / Time No Known Allergies Allergy Verified 11/13/16 08:46 Surgical - Exam Vital Signs Temp Pulse Resp BP Pulse Ox 98.2 F 95 16 124/77 93 L 11/13/16 08:43 11/13/16 08:43 11/13/16 08:43 11/13/16 08:43 11/13/16 08:43 - General well developed, no distress - Eyes PERRL - ENT normal pinna - Neck no masses - Respiratory normal expansion - Cardiovascular Rhythm: regular - Abdomen Colostomy in left lower quadrant Abdomen: soft, non tender Results - Labs Abnormal Lab Results - Last 24 Hours (Table) 11/13/16 Range/Units 08:48 POC Glucose (mg/dL) 130 H (75-99) mg/dL Assessment and Plan Plan: History of perforated diverticulitis with colostomy. Patient will undergo colonoscopy today.
--- NOTE | 2016-11-13 09:28 | P.OP ---
Date of Procedure: 11/13/16 Preoperative Diagnosis: History of perforated diverticulitis Postoperative Diagnosis: Diverticulosis Procedure(s) Performed: Colonoscopy Anesthesia: MAC Surgeon: Clemente Caceres Pathology: none sent Condition: stable Disposition: PACU Description of Procedure: Patient's placed on the endoscopy table lateral position. He received IV sedation. Digital rectal exam was performed which revealed a few external hemorrhoids. The flexible colonoscope was then placed patient anus and passed throughout the colon. The rectum appeared normal. In the sigmoid colon there was diverticular changes. The distal colonic stump staple line was seen at 37 cm. Scope was withdrawn. Next the colonoscope was then placed patient's colostomy located in the left lower quadrant. The colonoscope was then positioned throughout the entire colon. The ileocecal valve was visually. The cecum, ascending transverse and descending colon appeared normal. There was a few scattered diverticula. Scope was withdrawn for patient.
[2016-11-13] MEDS ORDERED: NA PHOS,M-B/NA PHOS,DI-BA 133 ML ENEMA RECTAL STA (09:29)
[2016-11-13] MEDS ORDERED: NA PHOS,M-B/NA PHOS,DI-BA 133 ML ENEMA RECTAL ONE (10:04)
[2016-11-13 10:08] VITALS: BP 117/74; PULSE 74; RESP 16
== END 2016-11-13 10:35 | disposition home or self-care (01) ==
LOC: ORWHC2ENDO 08:25
PROVIDERS: ATTEND Surgery
DX: K57.30 Diverticulosis of large intestine without perforation or abscess without bleeding (principal); K64.4 Residual hemorrhoidal skin tags; E78.5 Hyperlipidemia, unspecified; I10 Essential (primary) hypertension; G40.909 Epilepsy, unspecified, not intractable, without status epilepticus; J45.909 Unspecified asthma, uncomplicated; J44.9 Chronic obstructive pulmonary disease, unspecified; F17.200 Nicotine dependence, unspecified, uncomplicated; G43.909 Migraine, unspecified, not intractable, without status migrainosus; K21.9 Gastro-esophageal reflux disease without esophagitis; F39 Unspecified mood [affective] disorder; F41.9 Anxiety disorder, unspecified; F32.9 Major depressive disorder, single episode, unspecified; Z79.52 Long term (current) use of systemic steroids; Z79.899 Other long term (current) drug therapy; I25.2 Old myocardial infarction; Z90.49 Acquired absence of other specified parts of digestive tract
CPT/HCPCS: 44388; J2704; 80051; 85027; 86850; 86900; 86901

== ENCOUNTER 2016-11-14 08:41 | Inpatient (IN) | payer OTHER ==
[2016-11-13 09:18] VITALS: BMI 35.1
[2016-11-13 09:36] LABS: CH 29.8; CHCM 32.9; HCT 46.2 % (34.0-46.0); HDW 2.46; HGB 14.9 gm/dL (11.4-16.0); MCH 29.4 pg (25.0-35.0); MCHC 32.2 g/dL (31.0-37.0); MCV 91.2 fL (80.0-100.0); Mean Platelet Volume 6.8; RBC 5.06 m/uL (3.80-5.40); RDW 13.4 % (11.5-15.5); WBC 13.6 k/uL (3.8-10.6)
[2016-11-13 09:57] LABS: Potassium 4.5 mmol/L (3.5-5.1)
[~2016-11-14 08:41] MED LIST changes: +DEXAMETHASONE SOD PHOSPHATE 10 MG/ML 1 ML VIAL IV ONE; +HEPARIN SODIUM,PORCINE 5,000 UNIT/ML 1 ML VIAL SQ ONE; -LACTATED RINGERS 1,000 ML IV SCH; +MIDAZOLAM 2 MG/2 ML VIAL IV PRN; +ONDANSETRON 4 MG/2 ML VIAL IVP ONE; +SCOPOLAMINE 1.5MG/72HR PATCH TRANSDERM ONE; +ceFAZolin 2 GM in SODIUM CHLORIDE 0.9% 100 ML IVPB ONE; +metroNIDAZOLE-NS PMX 500 MG in SALINE 1 100ML.BAG IVPB ONE
[2016-11-14] MEDS ORDERED: NA PHOS,M-B/NA PHOS,DI-BA 133 ML ENEMA RECTAL ONE (11:06)
--- NOTE | 2016-11-14 11:21 | P.GSHP ---
History of Present Illness H&P Date: 11/14/16 Chief Complaint: History of perforated diverticulitis This a 55-year-old female who presents today for reversal of colostomy. Patient is. History of perforated diverticulitis with Kinza procedure. The patient aware the risks of surgery including bleeding wound infection and anastomotic dehiscence. - Constitutional Constitutional: Reports as per HPI Past Medical History Past Medical History: Asthma, Cancer, COPD, Hyperlipidemia, Myocardial Infarction ([place]), Seizure Disorder Additional Past Medical History / Comment(s): migraines, colon cancer status post bowel resection without need for chemotherapy ,LAST SEIZUE AUG 30, 2016, [place] EKG 2013 Last Myocardial Infarction Date:: JANUARY2003 PER EKG History of Any Multi-Drug Resistant Organisms: VRE Date of last positivie culture/infection: 08/01/16 MDRO Source:: Abdomen Past Surgical History: Appendectomy, Bowel Resection, Cholecystectomy, Hernia Repair, Tonsillectomy Additional Past Surgical History / Comment(s): COLOSTOMY Past Anesthesia/Blood Transfusion Reactions: Previous Problems w/ Anesthesia Additional Past Anesthesia/Blood Transfusion Reaction / Comment(s): "spinal anesthesia WITH COLON SURGERY- WHEN THE TUBE WAS REMOVED AIR BUBBLE WENT THE BRAIN. SHE WAS TRANSFERED TO ICU BECAUSE OF SEIZURES" AUG 2016" Past Psychological History: Anxiety, Depression Smoking Status: Current every day smoker Past Alcohol Use History: Rare Additional Past Alcohol Use History / Comment(s): QUIT, BUT STARTED BACK SMOKING RECENTLY APPROXIMATELY 1/2PPD Past Drug Use History: None Reported - Past Family History Mother Family Medical History: No Reported History Father Family Medical History: COPD, Coronary Artery Disease (CAD) Medications and Allergies Home Medications Medication Instructions Recorded Confirmed Type Budesonide/Formoterol Fumarate 2 puff INHALATION RT-BID PRN 09/15/14 11/14/16 History [Symbicort 80-4.5 Mcg Inhaler] Calcium Carb-Vit D 500Mg-200Un 1 tab PO DAILY 09/15/14 11/12/16 History [Oscal 500+D] Cholecalciferol [Vitamin D3] 2,000 unit PO DAILY 09/15/14 11/14/16 History Ezetimibe/Simvastatin [Vytorin 1 tab PO HS 09/15/14 11/14/16 History 10-10 mg Tablet] HYDROcodone/APAP 7.5-325MG [[place] 1 tab PO Q4H PRN 09/15/14 11/14/16 History 7.5-325] Multivitamins, Thera [Multivitamin 1 tab PO DAILY@1200 09/15/14 11/12/16 History (formulary)] Butalb/Acetaminophen/Caffeine 1 - 2 cap PO Q4HR PRN 07/19/15 11/14/16 History [Fioricet 50-300-40 mg Capsule] Topiramate [Topamax] 50 mg PO BID PRN 07/19/15 11/14/16 History ALPRAZolam [Xanax] 0.25 mg PO QID PRN 07/16/16 11/14/16 History Venlafaxine HCl [Effexor XR] 150 mg PO BID 07/16/16 11/14/16 History Allergies Allergy/AdvReac Type Severity Reaction Status Date / Time No Known Allergies Allergy Verified 11/13/16 08:46 Surgical - Exam Vital Signs Temp Pulse Resp BP Pulse Ox 97.3 F L 86 18 99/68 96 11/14/16 10:49 11/14/16 10:49 11/14/16 10:49 11/14/16 10:49 11/14/16 10:49 - General well developed, no distress - Eyes PERRL - ENT normal pinna - Neck no masses - Respiratory normal expansion - Cardiovascular Rhythm: regular - Abdomen Colostomy in left lower quadrant Abdomen: soft, non tender Results - Labs 11/13/16 08:54 11/13/16 08:54 Assessment and Plan Plan: History of perforated diverticulitis with colostomy. Patient will undergo reversal of colostomy today.
[2016-11-14] MEDS: LACTATED RINGERS 1,000 ML IV SCH (11:25)
[2016-11-14] MEDS ORDERED: LIDOCAINE 1% 20 ML VIAL (10MG/ML) FOR IV START INTRADERMA ONE (11:25)
[2016-11-14] MEDS ORDERED: MIDAZOLAM 2 MG/2 ML VIAL IVP ONE ×2 (11:28→14:57)
[2016-11-14] MEDS ORDERED: fentaNYL (PF) 50 MCG/ML 2 ML AMP IV ONE ×2 (11:30)
[2016-11-14] MEDS ORDERED: MIDAZOLAM 2 MG/2 ML VIAL ONE (12:00)
[2016-11-14] MEDS ORDERED: GLYCOPYRROLATE 0.2 MG/ML 2 ML VIAL ONE (12:00)
[2016-11-14] MEDS ORDERED: SUCCINYLCHOLINE CHLORIDE 100 MG/5 ML SYR IV ONE (12:00)
[2016-11-14] MEDS ORDERED: NEOSTIGMINE 1 MG/ML 10 ML VIAL ONE (12:00)
[2016-11-14] MEDS ORDERED: fentaNYL (PF) 50 MCG/ML 2 ML AMP ONE (12:00)
[2016-11-14] MEDS ORDERED: PROPOFOL 10 MG/ML 20 ML VIAL IV ONE (12:00)
[2016-11-14] MEDS ORDERED: HYDROmorphone (PF) 1 MG/ML ONE (12:00)
[2016-11-14] MEDS ORDERED: LIDOCAINE 1% INJ 10MG/ML (20 ML MDV) ONE (12:00)
[2016-11-14] MEDS ORDERED: ROCURONIUM BROMIDE 10 MG/ML 10 ML VIAL IV ONE (12:00)
[2016-11-14] MEDS ORDERED: LACTATED RINGERS 1,000 ML IV ONE ×2 (12:32→14:06)
[2016-11-14] MEDS ORDERED: BUPIVACAIN-EPI 0.25%-1:200,000 30 ML VIAL SQ ONE (13:51)
[2016-11-14] MEDS ORDERED: HYDROmorphone 1 MG/ML 1 ML SYRINGE IVP PRN (14:01)
[2016-11-14] MEDS ORDERED: METOCLOPRAMIDE 5 MG/ML 2 ML VIAL IVP PRN (14:01)
[2016-11-14] MEDS ORDERED: BENZOCAINE/MENTHOL LOZENG 1 EACH LOZENGE MUCOUS MEM PRN (14:01)
[2016-11-14] MEDS ORDERED: KETOROLAC 30 MG/ML 1 ML VIAL IVP PRN (14:01)
--- NOTE | 2016-11-14 14:01 | P.OP ---
Date of Procedure: 11/14/16 Preoperative Diagnosis: History of perforated diverticulitis Postoperative Diagnosis: History of perforated diverticulitis Procedure(s) Performed: Reversal of colostomy Lysis of adhesions Anesthesia: EUGENIO Surgeon: Clemente Caceres Estimated Blood Loss (ml): 100 Pathology: other (sigmoid colon) Condition: stable Disposition: PACU Description of Procedure: The patient's placed the operative table in the supine position. She received general anesthesia. Her abdomen was prepped and draped usual sterile fashion. Patient was placed in dorsal lithotomy position. The abdomen was entered through a midline incision. There were adhesions to the abdominal wall and these were lysed with sharp dissection. Several small bowel were adherent to the abdominal wall and these were lysed using sharp dissection. There was several small seromuscular tears in the small bowel these were repaired using 3- 0 GI silk suture. The colostomy was then transected using the linear cutter at the fascial level and then the rectal stump was mobilized. Using the linear cutter the rectal stump was cut just distal to the stump. And then using the LigaSure device the mesentery was divided. Next the end-to-end functional side- to-side staple anastomosis created using the LYDIA and TA stapler. A 3-0 GI silk sutures uses crotch stitch. The abdomen was irrigated there is no bleeding seen. The fascia was closed with looped #1 PDS suture. The skin was closed with adilia. The old colostomy site was then removed by dividing the mucosa anus junction. Using electrocautery the old colostomy was dissected free and then the colostomy was removed. The fascia was closed with 0 Vicryl suture. The skin was closed with adilia. The patient was sent to recovery in stable condition.
[2016-11-14] MEDS ORDERED: NALOXONE 0.4 MG/ML 1 ML VIAL IV PRN (14:10)
[2016-11-14] MEDS: HYDROmorphone 1 MG/ML 1 ML SYRINGE IVP PRN ×2 (14:21→14:38)
[2016-11-14 15:31] LABS: Basophils % (A) 0 %; CH 29.5; CHCM 31.7; Eosinophils % (A) 0 %; HCT 45.2 % (34.0-46.0); HDW 2.43; HGB 14.3 gm/dL (11.4-16.0); Luc # (Auto) 0.08; Luc % (Auto) 1; Lymphocytes # (A) 1.4 k/uL (1.0-4.8); Lymphocytes % (A) 8 %; MCH 29.5 pg (25.0-35.0); MCHC 31.6 g/dL (31.0-37.0); MCV 93.4 fL (80.0-100.0); Mean Platelet Volume 6.6; Monocytes # (A) 0.2 k/uL (0-1.0); Monocytes % (A) 1 %; Neutrophils # (A) 14.9 k/uL (1.3-7.7); Neutrophils % (A) 90 %; RBC 4.84 m/uL (3.80-5.40); RDW 13.2 % (11.5-15.5); WBC 16.6 k/uL (3.8-10.6); WBC (Perox) 17.05
[2016-11-14] MEDS: HYDROmorphone PCA 5 MG/25 ML SYRINGE IV PRN ×2 (15:41→21:13)
[2016-11-14 15:46] LABS: Anion Gap 6 mmol/L; Blood Urea Nitrogen 10 mg/dL (7-17); Calcium 8.7 mg/dL (8.4-10.2); Carbon Dioxide 24 mmol/L (22-30); Chloride 108 mmol/L (98-107); Glucose 129 mg/dL (74-99); Non-African American GFR(MDRD) >60 (>60 ml/min/1.73 sqM); Sodium 138 mmol/L (137-145)
[2016-11-14] MEDS: D5-0.45% NACL WITH KCL 20MEQ/L 1,000 ML IV SCH (16:27)
[2016-11-14] MEDS: ALVIMOPAN 12 MG CAPSULE PO SCH (20:11)
[2016-11-14] MEDS: FAMOTIDINE 20 MG/2 ML VIAL IV SCH (20:12)
[2016-11-15] MEDS: HYDROmorphone PCA 5 MG/25 ML SYRINGE IV PRN ×2 (04:06→15:11)
[2016-11-15] MEDS: D5-0.45% NACL WITH KCL 20MEQ/L 1,000 ML IV SCH ×3 (06:02→15:03)
[2016-11-15] MEDS: LACTATED RINGERS 1,000 ML IV SCH (06:03)
[2016-11-15] MEDS: ALVIMOPAN 12 MG CAPSULE PO SCH ×2 (07:58→20:02)
[2016-11-15] MEDS: ENOXAPARIN 40 MG/0.4 ML SYRINGE SQ SCH (07:58)
[2016-11-15] MEDS: FAMOTIDINE 20 MG/2 ML VIAL IV SCH ×2 (07:58→20:03)
--- NOTE | 2016-11-15 11:06 | P.PN ---
Progress Note - Text Patient underwent reversal of colostomy yesterday. She is fairly stable. Postoperative pain. No nausea or vomiting. On examination the patient is awake alert in no distress. Temperature is normal. Vitals are stable. Abdomen is soft with usual postoperative tenderness. No guarding or rebound. Labs are noted unremarkable. Impression stable postoperative course. Add Toradol. Increase activity.
[2016-11-15] MEDS: HYDROmorphone 1 MG/ML 1 ML SYRINGE IV PRN ×3 (11:42→20:02)
[2016-11-15] MEDS: VENLAFAXINE HCL ER 150 MG CAP PO SCH (15:03)
[2016-11-15] MEDS ORDERED: TOPIRAMATE 25 MG TAB PO PRN (15:22)
[2016-11-15] MEDS ORDERED: NICOTINE POLACRILEX 2 MG GUM BUCCAL PRN (15:23)
[2016-11-15] MEDS: IPRATROPIUM-ALBUTEROL 3 ML NEB INHALATION SCH ×2 (15:36→18:51)
[2016-11-15] MEDS: NICOTINE 14MG/24HR PATCH TRANSDERM SCH (16:51)
[2016-11-15] MEDS: THEOPHYLLINE 24 HOUR 300 MG CAP.ER.24H PO SCH (16:51)
[2016-11-15] MEDS: BUDESONIDE 1 MG/2 ML NEBU INHALATION SCH (18:51)
[2016-11-15] MEDS: EZETIMIBE 10 MG TAB PO SCH (20:02)
[2016-11-15] MEDS: ATORVASTATIN 10 MG TAB PO SCH (20:03)
[2016-11-15] MEDS ORDERED: ALPRAZolam 0.25 MG TAB ONE (23:25)
[2016-11-16] MEDS: ONDANSETRON 4 MG/2 ML VIAL IVP PRN ×2 (01:24→15:38)
[2016-11-16] MEDS: D5-0.45% NACL WITH KCL 20MEQ/L 1,000 ML IV SCH ×4 (01:27→22:44)
[2016-11-16] MEDS: LACTATED RINGERS 1,000 ML IV SCH (06:39)
[2016-11-16] MEDS: BUDESONIDE 1 MG/2 ML NEBU INHALATION SCH ×2 (07:48→20:40)
[2016-11-16] MEDS: IPRATROPIUM-ALBUTEROL 3 ML NEB INHALATION SCH ×4 (07:50→20:40)
[2016-11-16] MEDS: VENLAFAXINE HCL ER 150 MG CAP PO SCH ×2 (08:09→20:25)
[2016-11-16] MEDS: FAMOTIDINE 20 MG/2 ML VIAL IV SCH ×2 (08:09→20:25)
[2016-11-16] MEDS: CHOLECALCIFEROL 1,000 UNIT TAB PO SCH (08:09)
[2016-11-16] MEDS: THEOPHYLLINE 24 HOUR 300 MG CAP.ER.24H PO SCH (08:09)
[2016-11-16] MEDS: ENOXAPARIN 40 MG/0.4 ML SYRINGE SQ SCH (08:09)
[2016-11-16] MEDS: ALVIMOPAN 12 MG CAPSULE PO SCH ×2 (08:10→20:25)
[2016-11-16] MEDS: NICOTINE 14MG/24HR PATCH TRANSDERM SCH ×2 (08:10→08:13)
[2016-11-16 09:54] LABS: CH 29.4; HCT 39.9 % (34.0-46.0); HDW 2.66; HGB 12.8 gm/dL (11.4-16.0); MCH 29.7 pg (25.0-35.0); MCHC 32.1 g/dL (31.0-37.0); MCV 92.4 fL (80.0-100.0); Mean Platelet Volume 6.8; RBC 4.32 m/uL (3.80-5.40); RDW 13.2 % (11.5-15.5); WBC 12.5 k/uL (3.8-10.6)
[2016-11-16 10:05] LABS: Anion Gap 5 mmol/L; Blood Urea Nitrogen 3 mg/dL (7-17); Carbon Dioxide 32 mmol/L (22-30); Chloride 100 mmol/L (98-107); Glucose 157 mg/dL (74-99); Non-African American GFR(MDRD) >60 (>60 ml/min/1.73 sqM); Potassium 4.4 mmol/L (3.5-5.1); Sodium 137 mmol/L (137-145)
--- NOTE | 2016-11-16 10:20 | CONS ---
DATE OF CONSULTATION: 11/15/2016 REASON FOR CONSULTATION: Medical management requested by Dr. Caceres. CONSULTATION: This is a 55-year-old patient who was last in the hospital in August of this year. Pat at that time had sigmoid diverticulitis with perforation and abscess. Bowel resection was carried out and creation of a colostomy. Patient also has a history of colon cancer with right hemicolectomy. Chronic stable medical conditions include COPD, presbyesophagus, anxiety, depression, adrenal insufficiency and tonic-clonic seizures. Patient has undergone reversal of the colostomy. Allowed some liquid diet. Having pain at the operative site. No nausea, vomiting. Some wheezing is present. Patient has been smoking she says. REVIEW OF SYSTEMS: CONSTITUTIONAL: Tired. HEENT: None. RESPIRATORY: As above. CARDIOVASCULAR: None. GASTROINTESTINAL: Abdominal pain. GENITOURINARY: None. MUSCULOSKELETAL: None. DERMATOLOGIC: None. LYMPHATIC: None. PSYCHIATRY: Some anxiety. NEUROLOGICAL: None. Past medical history of tonic-clonic seizures, sigmoid diverticulitis with perforation, colon cancer with right hemicolectomy, COPD, presbyesophagus, anxiety, depression, adrenal insufficiency. PAST SURGICAL HISTORY: Appendectomy, bowel resection, cholecystectomy, hernia repair, tonsillectomy, colostomy. SOCIAL HISTORY: The patient has been smoking for quite some time, down to 1/2 pack a day. Lives with her daughter. FAMILY HISTORY: Noncontributory to the presentation. HOME MEDICATIONS: 1. Effexor XR 150 mg p.o. b.i.d. 2. Topamax 50 mg p.o. b.i.d. p.r.n. 3. Scout-24 300 mg p.o. daily. 4. Multivitamin 1 tablet p.o. daily. 5. DuoNeb q.i.d. 6. [place] 7.5, 1 tablet p.o. q.4 p.r.n. 7. ( ) 10 1 tablet p.o. q.h.s. 8. Vitamin D3 2000 units p.o. daily. 9. Os-Fantasma vitamin D 1 tablet daily. 10. Fioricet 1 to 2 capsules p.o. q.4 p.r.n. 11. Symbicort 80/4.5, 2 puffs b.i.d. p.r.n. 12. Xanax 0.25 p.o. q.i.d. p.r.n. ALLERGIES: None. On examination, temperature 99.1, pulse 58, respirations 16, blood pressure 103/59, pulse ox 98% on room air. GENERAL APPEARANCE: Average build, lying in bed, tired appearing. EYES: Pupils equal. Conjunctivae normal. HEENT: Oral cavity normal. NECK: JVD not raised. Mass not palpable. RESPIRATORY: Effort increased. LUNGS: Decreased breath sounds and wheezing. CARDIOVASCULAR: First and second sounds normal. No edema. ABDOMEN: Tender, binder in place. Bowel sounds sluggish. PSYCHIATRY: Alert and oriented x3. Mood and affect normal. INVESTIGATIONS: White count 16.6, hemoglobin 3.3, potassium 4.0. BUN and creatinine are normal ASSESSMENT: 1. Reversal of colostomy in a patient who had sigmoid diverticulitis with localized abscess and perforation previously. 2. Right hemicolectomy with history of colon cancer previously. 3. Chronic obstructive pulmonary disease, mild exacerbation in a current smoker. 4. Chronic nicotine dependence. Patient smokes half pack cigarettes a day. 5. Presbyesophagus. 6. Anxiety, depression, not otherwise specified. 7. Possible element of adrenal insufficiency. PLAN: At this point, patient's diet is still being advanced per surgery. Patient advised against smoking. Given a nicotine patch and nicotine gum. Home medications will be resumed. Will put the patient on nebulized bronchodilators. Encourage the patient to be out of bed. Thank you Dr. Caceres. Will follow with you.
--- NOTE | 2016-11-16 12:24 | P.PN ---
Progress Note - Text The patient is day 2 postop. Complains of nausea and vomiting each time she gets the dilated and she thinks and I agreed she is probably incentive tolerant to the Dilaudid. Otherwise coming along fairly well. No fever. Temperature is around 98-99. Are stable. Her graft she is in no acute distress abdomen shows general is obese mild tenderness postop. No guarding or rebound. BRITTA drain is serosanguineous about 30 amalgams and 8 hours. No evidence of any complication. WBC is down to 12,900. Electrolytes are normal. Bryn impression stable postop. Intolerance to Dilaudid. Recommendation we will DC the dilated try her on morphine sulfate and Toradol. Keep him on full liquid diet for now.
[2016-11-16] MEDS: CALCIUM CARB-VIT D 500MG-200UN 1 EACH TAB PO SCH (12:40)
[2016-11-16] MEDS: MORPHINE SULFATE 4 MG/ML SYRINGE IVP PRN ×2 (12:40→17:23)
[2016-11-16] MEDS: ALPRAZolam 0.25 MG TAB PO PRN (15:38)
[2016-11-16] MEDS: ATORVASTATIN 10 MG TAB PO SCH (20:25)
[2016-11-16] MEDS: EZETIMIBE 10 MG TAB PO SCH (20:25)
[2016-11-17] MEDS: LACTATED RINGERS 1,000 ML IV SCH (00:50)
[2016-11-17] MEDS: MORPHINE SULFATE 4 MG/ML SYRINGE IVP PRN ×4 (01:40→20:21)
[2016-11-17] MEDS: BUDESONIDE 1 MG/2 ML NEBU INHALATION SCH ×3 (07:39→20:06)
[2016-11-17] MEDS: IPRATROPIUM-ALBUTEROL 3 ML NEB INHALATION SCH ×4 (07:39→20:03)
[2016-11-17] MEDS: VENLAFAXINE HCL ER 150 MG CAP PO SCH ×2 (07:50→20:15)
[2016-11-17] MEDS: NICOTINE 14MG/24HR PATCH TRANSDERM SCH (07:50)
[2016-11-17] MEDS: FAMOTIDINE 20 MG/2 ML VIAL IV SCH ×2 (07:50→20:15)
[2016-11-17] MEDS: THEOPHYLLINE 24 HOUR 300 MG CAP.ER.24H PO SCH (07:50)
[2016-11-17] MEDS: CHOLECALCIFEROL 1,000 UNIT TAB PO SCH (07:50)
[2016-11-17] MEDS: CALCIUM CARB-VIT D 500MG-200UN 1 EACH TAB PO SCH (07:51)
[2016-11-17] MEDS: ALVIMOPAN 12 MG CAPSULE PO SCH ×2 (07:51→22:25)
[2016-11-17] MEDS: ENOXAPARIN 40 MG/0.4 ML SYRINGE SQ SCH (07:51)
--- NOTE | 2016-11-17 11:00 | PN ---
DATE OF SERVICE: 11/16/2016 PRESENTING COMPLAINT: Medical management requested by Dr. Caceres. INTERVAL HISTORY: This is a 55-year-old female who is status post bowel resection and colostomy creation. Patient is status post colostomy reversal. Today patient is alert, awake, tolerating some liquids. Pain noted at the operative site. No nausea or vomiting. Some wheezing noted. Review of systems done for constitutional, cardiovascular, GI, pulmonary, with relevant findings as above. Current medications include DuoNeb, Xanax, Pulmicort, Lovenox, Zetia, morphine sulfate, theophylline, Topamax, Effexor. PHYSICAL EXAMINATION: VITAL SIGNS: Temperature 97.4, pulse 80, respiratory rate 18, blood pressure 113/74, oxygen saturation 92% on 2 liters nasal cannula. GENERAL APPEARANCE: Patient sitting up in the bed. Looks comfortable. Complains of some abdominal pain, but otherwise in good spirits. EYES: Pupils equal. Conjunctivae normal. NECK: JVD not raised. Mass not palpable. RESPIRATORY: Effort increased. LUNGS: Decreased breath sounds and wheezing noted. CARDIOVASCULAR: First and second sounds noted. No edema. ABDOMEN: Tender, binder in place. Bowel sounds are sluggish. PSYCHIATRY: Alert and oriented x3. Mood and affect appropriate for situation. INVESTIGATIONS: White blood cell count 12.5, hemoglobin 12.8, platelet count 301, sodium 137, potassium 4.4, BUN 3.0, creatinine 0.55 ASSESSMENT: 1. Reversal of colostomy. The patient has sigmoid diverticulitis with localized abscess and perforation previously. 2. Right hemicolectomy with a history of colon cancer previously. 3. Chronic obstructive pulmonary disease, mild exacerbation in a current smoker. 4. Chronic nicotine dependence. Patient smokes half-pack cigarettes a day. 5. Presbyesophagus. 6. Anxiety, depression, not otherwise specified. 7. Possible element of adrenal insufficiency. PLAN: Patient's diet has been advanced to clear liquid diet per surgery. Continue patient on nebulized bronchodilators. Patient encouraged to be out of the bed, becoming more mobile and ambulatory. Will follow. Patient has been seen and examined by this nurse practitioner Marii Vazquez, and sleep at all elements of the case discussed with attending, Dr. Abad.
--- NOTE | 2016-11-17 11:34 | PN ---
DATE OF SERVICE: 11/16/2016 ATTENDING NOTE: This patient was seen and examined by me today. I reviewed the note of my nurse practitioner, Ms. Vazquez. Discussed additional notes as above. Patient is status post ( ) colostomy. Pain medication was adjusted. Had some nausea and vomiting earlier. Has not really been out of bed. The patient has not passed any flatus. Current medications include IV fluids. On examination, temperature 97.4, pulse 80, respirations 18, blood pressure 113/74. LUNGS: Decreased breath sounds. Prolonged expiration, expiratory crackles. ABDOMEN: Tender. Bowel sounds are sluggish. Binder in place. INVESTIGATIONS: White count 12.5. Potassium 4.4. ASSESSMENT: 1. Reversal of colostomy. 2. Chronic obstructive pulmonary disease exacerbation in a current smoker. 3. Nausea, vomiting, a side effect of pain medications. PLAN: Patient encouraged to be out of bed. Told her she should cut back on the pain medications. Breathing treatments to continue. Will follow.
[2016-11-17] MEDS: D5-0.45% NACL WITH KCL 20MEQ/L 1,000 ML IV SCH (12:46)
--- NOTE | 2016-11-17 15:01 | P.PN ---
Subjective Patient is a 55-year-old female with medical history significant for perforated diverticulitis with Kinza procedure presenting to the hospital for reversal of colostomy and lysis of adhesions on 11/14/2016. Patient is evaluated on the medical floor where she is currently lying in bed. Patient is complaining of a congestive cough and mild shortness of breath with activity. Denies chills, fevers, nausea, vomiting, or chest pain. Patient is urinating without difficulty. Patient is passing flatus and had a small bowel movement this morning. Tolerating a full liquid diet. Afebrile. Urine output adequate. Objective - Vital Signs Vital signs: Vital Signs Temp 98.6 F 11/17/16 07:00 Pulse 80 11/17/16 11:40 Resp 18 11/17/16 07:00 BP 102/62 11/17/16 07:00 Pulse Ox 92 L 11/17/16 07:00 Intake & Output 11/16/16 11/17/16 11/17/16 18:59 06:59 18:59 Intake Total 1106.25 2260 Output Total 500 500 30 Balance 606.25 1760 -30 Weight 87.09 kg 87.09 kg Intake: IV 906.25 1500 D5-0.45% NaCl with KCl 906.25 1500 20Meq/l 1,000 ml @ 125 mls/hr IV .Q8H [facility] Rx#: [id number] Oral 200 760 Output: Drainage 30 Abdomen 30 Urine 500 500 Other: Voiding Method Toilet Toilet # Voids 4 1 # Bowel Movements 0 # Emeses 2 - Exam GENERAL: Pt awake and alert, well-appearing, well-nourished, and in no acute distress. LUNGS: Breath sounds with coarse rhonchi to auscultation bilaterally. HEART: Heart S1, S2, no S3 or S4. No murmurs, rubs or gallops. ABDOMEN: Soft, mild incisional tenderness, nondistended, normoactive bowel sounds. No guarding, no rebound. No masses or organomegaly appreciated. Incisional dressing with old sanguinous blood. BRITTA drain compressed with minimal serous sanguinous fluid. NEUROLOGICAL: Pt oriented x 3. - Labs CBC & Chem 7: 11/16/16 09:32 11/16/16 09:32 Assessment and Plan Plan: Impression: 1. Status post reversal of colostomy and lysis of adhesions for history of perforated diverticulitis with Kinza procedure on 11/14/2016. 2. Shortness of breath with exertion and coarse rhonchi on auscultation with history of COPD. Plan: 1. Advance diet to soft. Hep-Lock IV fluids. Obtain chest x-ray. Encourage incentive spirometry and ambulation. Continue local wound care and drain management. Continue follow medical team. The above impression and plan have been discussed and directed by Dr. Caceres. Pb SHELTON acting as scribe for Dr. Caceres.
--- NOTE | 2016-11-17 15:55 | XR ---
EXAMINATION TYPE: XR chest 2V DATE OF EXAM: 11/17/2016 12:26 PM COMPARISON: None HISTORY: 55-year-old female with shortness of breath TECHNIQUE: Frontal and lateral views FINDINGS: The cardiomediastinal silhouette, aorta, and pulmonary vasculature are within normal limits. A couple bands of atelectasis in the right mid and lower lung and and a couple bands at the left midlung and left base. No pleural effusion. IMPRESSION: Prominent bands of atelectasis in the mid to lower lungs.
[2016-11-17] MEDS: HYDROcodone/APAP 7.5-325MG 1 EACH TAB PO PRN ×2 (16:45→22:44)
[2016-11-17] MEDS: ATORVASTATIN 10 MG TAB PO SCH (20:15)
[2016-11-17] MEDS: EZETIMIBE 10 MG TAB PO SCH (20:15)
[2016-11-17] MEDS: ALPRAZolam 0.25 MG TAB PO PRN (22:26)
[2016-11-17] MEDS: predniSONE 20 MG TAB PO SCH (22:26)
[2016-11-17 22:34] VITALS: RESP 18
[2016-11-18] MEDS: LACTATED RINGERS 1,000 ML IV SCH (00:31)
[2016-11-18] MEDS: HYDROcodone/APAP 7.5-325MG 1 EACH TAB PO PRN ×2 (06:22→11:34)
[2016-11-18 08:18] VITALS: BP 141/63; TEMP 96.9
[2016-11-18] MEDS: IPRATROPIUM-ALBUTEROL 3 ML NEB INHALATION SCH ×2 (08:46→11:46)
[2016-11-18] MEDS: BUDESONIDE 1 MG/2 ML NEBU INHALATION SCH (08:46)
--- NOTE | 2016-11-18 08:50 | PN ---
DATE OF SERVICE: 11/17/2016 PRESENTING COMPLAINT: Medical management requested by Dr. Caceres. INTERVAL HISTORY: This is a 55-year-old female who is status post bowel resection and colostomy creation. Patient is status post colostomy reversal. Today the patient is awake, alert, tolerating some liquids. Complains of some pain and some nausea and the pain is located at the operative site. Some wheezing was noted. Review of systems done for constitutional, cardiovascular, GI, pulmonary with relevant findings as above. Current medications include DuoNeb, Xanax, Pulmicort, Lovenox, Zetia, morphine sulfate, theophylline, Topamax, Effexor. PHYSICAL EXAMINATION: VITAL SIGNS: Temperature 97.3, pulse 87, respiratory rate 18, blood pressure 111/64, oxygen saturation 93% on room air. GENERAL APPEARANCE: Patient is awake, alert, able to answer questions, complains of the morphine that she is on causing her to be nauseated asking for medications that she was on at home. Otherwise patient's mood and affect are appropriate for situation. EYES: Pupils equal. Conjunctivae normal. NECK: JVD not raised. Mass not palpable. RESPIRATORY: Effort increased. LUNGS: Decreased breath sounds bilaterally and wheezing noted. CARDIOVASCULAR: First and second sounds noted. No edema. ABDOMEN: Tender abdominal binder in place. Bowel sounds are sluggish. Drain remains in place as well draining sanguineous drainage. PSYCHIATRY: Alert and oriented x3. Mood and affect appropriate for situation. INVESTIGATIONS: No new labs. Chest x-ray, prominent bands of atelectasis in mid to lower lungs. ASSESSMENT: 1. Reversal of colostomy. The patient has sigmoid diverticulitis with localized abscess and perforation previously. 2. Right hemicolectomy with a history of colon cancer previously. 3. Chronic obstructive pulmonary disease, mild exacerbation in a current smoker. 4. Chronic nicotine dependence. Patient smokes half-pack cigarettes a day. 5. Presbyesophagus. 6. Anxiety and depression, not otherwise specified. 7. Possible element of adrenal insufficiency. PLAN: Advance patient's diet per Surgery recommendations. Continue patient on nebulized bronchodilators. Will continue to follow. Patient has been seen and examined by the nurse practitioner, Marii Vazquez, and all elements of the case has been discussed with attending, Dr. Abad.
[2016-11-18] MEDS: NICOTINE 14MG/24HR PATCH TRANSDERM SCH ×2 (09:19→09:23)
[2016-11-18] MEDS: FAMOTIDINE 20 MG/2 ML VIAL IV SCH (09:21)
[2016-11-18] MEDS: ALVIMOPAN 12 MG CAPSULE PO SCH (09:22)
[2016-11-18] MEDS: CALCIUM CARB-VIT D 500MG-200UN 1 EACH TAB PO SCH (09:22)
[2016-11-18] MEDS: THEOPHYLLINE 24 HOUR 300 MG CAP.ER.24H PO SCH (09:22)
[2016-11-18] MEDS: predniSONE 20 MG TAB PO SCH (09:22)
[2016-11-18] MEDS: VENLAFAXINE HCL ER 150 MG CAP PO SCH (09:23)
[2016-11-18] MEDS: CHOLECALCIFEROL 1,000 UNIT TAB PO SCH (09:23)
[2016-11-18] MEDS: ENOXAPARIN 40 MG/0.4 ML SYRINGE SQ SCH (09:26)
[2016-11-18 09:40] LABS: Anion Gap 10 mmol/L; Blood Urea Nitrogen 7 mg/dL (7-17); Calcium 9.4 mg/dL (8.4-10.2); Carbon Dioxide 32 mmol/L (22-30); Chloride 93 mmol/L (98-107); Glucose 188 mg/dL (74-99); Non-African American GFR(MDRD) >60 (>60 ml/min/1.73 sqM); Potassium 4.4 mmol/L (3.5-5.1); Sodium 135 mmol/L (137-145)
[2016-11-18 09:45] LABS: Basophils % (A) 0 %; CH 29.6; CHCM 32.7; Eosinophils % (A) 0 %; HCT 38.9 % (34.0-46.0); HDW 2.64; HGB 12.8 gm/dL (11.4-16.0); Luc # (Auto) 0.05; Luc % (Auto) 0; Lymphocytes # (A) 0.6 k/uL (1.0-4.8); Lymphocytes % (A) 5 %; MCH 29.8 pg (25.0-35.0); MCHC 32.8 g/dL (31.0-37.0); MCV 90.9 fL (80.0-100.0); Mean Platelet Volume 6.9; Monocytes # (A) 0.2 k/uL (0-1.0); Monocytes % (A) 2 %; Neutrophils # (A) 11.4 k/uL (1.3-7.7); Neutrophils % (A) 93 %; RBC 4.28 m/uL (3.80-5.40); RDW 12.9 % (11.5-15.5); WBC 12.3 k/uL (3.8-10.6); WBC (Perox) 11.38
[2016-11-18 10:23] VITALS: PULSE 78
--- NOTE | 2016-11-18 10:45 | PN ---
DATE OF SERVICE: 11/17/2016 ATTENDING NOTE: The patient was seen by me earlier today. I reviewed the notes of my nurse practitioner, Ms. Vazquez. The patient is on clear liquids. Passed a small amount of stool. Has been out of bed. Some wheezing. On examination: LUNGS: Decreased breath sounds and wheezing. CARDIOVASCULAR: First and second sounds normal. ABDOMEN: Tender. Bowel sounds are present. PSYCHIATRY: Alert, oriented x3. Mood and affect normal. INVESTIGATIONS: No blood work from today. ASSESSMENT: 1. Reversal of colostomy. 2. Chronic obstructive pulmonary disease exacerbation in a current smoker, slow to respond. 3. Nausea and vomiting, improving. PLAN: Diet to be advanced per surgery. Patient is doing otherwise well. We will add some oral prednisone for short burst.
--- NOTE | 2016-11-18 12:14 | P.DS ---
Providers Date of admission: 11/14/16 09:55 Expected date of discharge: 11/18/16 Attending physician: Clemente Caceres Consults: 11/14/16 14:01 Consult Physician Routine Consulting Provider: Eduar Abad Consult Reason/Comments: Medical management Do you want consulting provider notified?: Yes [facility] Patient is a 55-year-old female with medical history significant for perforated diverticulitis with Kinza procedure. Patient presenting to the hospital for reversal of colostomy and lysis of adhesions on 11/14/2016. Patient tolerated procedure well. Patient did have an episode of exacerbation of her COPD during the hospital stay which improved with nebulized updraft treatments and steroids. Patient otherwise had an uneventful postoperative course and was deemed stable for discharge to home with close follow-up and outpatient setting. Discharge diagnoses: 1. Status post reversal of colostomy and lysis of adhesions for history of perforated diverticulitis with Kinza procedure on 11/14/2016. 2. Chronic obstructive pulmonary disease exacerbation. The above impression and plan have been discussed and directed by Dr. Caceres. Pb SHELTON acting as scribe for Dr. Caceres. Pertinent Studies: Chest x-ray Procedures: Reversal of colostomy; lysis of adhesions Patient Condition at Discharge: Good Plan - Discharge Summary New Discharge Prescriptions: Docusate [Colace] 100 mg PO BID #20 capsule HYDROcodone/APAP 7.5-325MG [Vantage 7.5-325] 1 tab PO Q6HR PRN #28 tab PRN Reason: Pain predniSONE 40 mg PO DAILY #2 tab Discharge Medication List Budesonide/Formoterol Fumarate [Symbicort 80-4.5 Mcg Inhaler] 2 puff INHALATION RT-BID PRN 09/15/14 [History] Calcium Carb-Vit D 500Mg-200Un [Oscal 500+D] 1 tab PO DAILY 09/15/14 [History] Cholecalciferol [Vitamin D3] 2,000 unit PO DAILY 09/15/14 [History] Ezetimibe/Simvastatin [Vytorin 10-10 mg Tablet] 1 tab PO HS 09/15/14 [History] HYDROcodone/APAP 7.5-325MG [Vantage 7.5-325] 1 tab PO Q4H PRN 03/13/15 [History] Multivitamins, Thera [Multivitamin (formulary)] 1 tab PO DAILY@1200 09/15/14 [ History] Butalb/Acetaminophen/Caffeine [Fioricet 50-300-40 mg Capsule] 1 - 2 cap PO Q4HR PRN 07/19/15 [History] Topiramate [Topamax] 50 mg PO BID PRN 07/19/15 [History] ALPRAZolam [Xanax] 0.25 mg PO QID PRN 07/16/16 [History] Venlafaxine HCl [Effexor XR] 150 mg PO BID 07/16/16 [History] Ipratropium-Albuterol Nebulize [Duoneb 0.5 mg-3 mg/3 ml Soln] 3 ml INHALATION RT -QID #120 ampul.neb 07/23/16 [Rx] Theophylline 24 Hour [Scout-24] 300 mg PO DAILY #30 cap.er.24h 07/23/16 [Rx] Docusate [Colace] 100 mg PO BID #20 capsule 11/17/16 [Rx] HYDROcodone/APAP 7.5-325MG [[place]antage 7.5-325] 1 tab PO Q6HR PRN #28 tab 11/17/16 [ Rx] predniSONE 40 mg PO DAILY #2 tab 11/18/16 [Rx] Follow up Appointment(s)/Referral(s): Philip Luque MD [Primary Care Provider] - 11/28/16 9:00 am Clemente Caceres MD [STAFF PHYSICIAN] - 11/25/16 2:00 pm Patient Instructions/Handouts: Hydrocodone/Acetaminophen (By mouth), Prednisone (By mouth), Laxative, Stool Softeners (By mouth), Louie-Andre Drain Care (DC), COPD (Chronic Obstructive Pulmonary Disease) (DC), Open Colostomy Reversal (DC), Staple Care (DC) Activity/Diet/Wound Care/Special Instructions: No heavy lifting, pushing, or pulling items greater than 10 pounds. Shower daily, no soaking in bath tubs, pools, or hot tubs. Let the silver dressing fall off on its own. Change dressings to drains daily and as needed for soiling. No driving while taking pain medication. Notify surgeon with any signs or symptoms of infection, increased pain, or not tolerating diet. Diet :Soft diet Discharge Disposition: HOME SELF-CARE
--- NOTE | 2016-11-18 23:20 | PN ---
DATE OF SERVICE: 11/18/2016 PRESENTING COMPLAINT: Medical management requested by Dr. Caceres. INTERVAL HISTORY: This is a 55-year-old female who is status post bowel resection and colostomy creation. Patient is status post colostomy reversal today. The patient is wide awake, alert, tolerating liquids and food. No complaints of pain or nausea. Patient is anxious to go home. Review of systems done for constitutional, cardiovascular, GI, pulmonary, with relevant findings as above. Current medications include: 1. DuoNeb. 2. Xanax. 3. Pulmicort. 4. Lovenox. 5. Zetia. 6. Morphine sulfate. 7. Theophylline. 8. Topamax. 9. Effexor. PHYSICAL EXAMINATION: VITAL SIGNS: Temperature 96.9, pulse 78, respirations 18, blood pressure 141/63, oxygen saturation 94% on room air. GENERAL APPEARANCE: Patient is awake, alert, able to answer questions; asking about going home. EYES: Pupils equal. Conjunctivae normal. NECK: JVD not raised. Mass not palpable. RESPIRATORY: Effort normal, unlabored. CARDIOVASCULAR: First and second sounds noted. No edema. ABDOMEN: Soft, tender. Positive bowel sounds x4. Patient had a BM today. BRITTA drain remains with serosanguineous drainage noted. BRITTA drain will be removed at an outpatient appointment. Abdomen is tender to palpation. PSYCHIATRY: Alert and oriented x3. Mood and affect are appropriate for the situation. INVESTIGATIONS: White blood cell count 12.3, hemoglobin 12.8, platelet count 308. Sodium 135, potassium 4.4. BUN 7, creatinine 0.54. ASSESSMENT: 1. Reversal of colostomy in a patient with sigmoid diverticulitis with localized abscess and perforation previously. 2. Right hemicolectomy with a history of colon cancer previously. 3. Chronic obstructive pulmonary disease, mild exacerbation, in a current smoker. 4. Chronic nicotine dependence. Patient smokes half a pack of cigarettes a day. 5. Presbyesophagus. 6. Anxiety and depression not otherwise specified. 7. Possible element of adrenal insufficiency. PLAN: Patient is scheduled to go home today. All medications have been ordered for the patient. Patient has been seen and examined by nurse practitioner, Marii Vazquez, and all elements of the case have been discussed with the attending, Dr. Abad.
--- NOTE | 2016-11-19 09:32 | PN ---
DATE OF SERVICE: 11/18/2016 PRESENTING COMPLAINT: Abdominal surgery. INTERVAL HISTORY: This is a patient who is status post colostomy reversal, doing much better, tolerating a diet, had a bowel movement. Breathing is much better. Review of systems done for constitutional, cardiovascular, GI, pulmonary; relevant finding as above. Current medications are reviewed. On examination, temperature 96.9, pulse 78, respirations 18, blood pressure 140/63, pulse ox 94% on room air. GENERAL APPEARANCE: Sitting up, comfortable. EYES: Pupils equal, conjunctivae normal. NECK: JVD not raised. Mass not palpable. Respiratory effort normal. LUNGS: Improved air entry, wheezing improved. CARDIOVASCULAR: First and second sounds normal. No edema. PSYCH: Alert and oriented x3. Mood and affect normal. INVESTIGATIONS: Hemoglobin 12.8, potassium 4.4. ASSESSMENT: 1. Reversal of colostomy. 2. Right hemicolectomy with history of colon cancer previously. 3. Chronic obstructive pulmonary disease exacerbation, improved. 4. Chronic nicotine dependence. Patient is a cigarette smoker. 5. Presbyesophagus. 6. Anxiety, depression, not otherwise specified. PLAN: Patient is doing well. Continue medical treatment plan. Reinforced not to smoke. Patient should follow with the family doctor upon discharge.
== END 2016-11-18 12:25 | disposition home or self-care (01) | DRG 330 ==
LOC: 2ORWHC 09:55 → EDSTATUS 13:15 → 5MS5E 14:06
PROVIDERS: ADMIT Surgery; ATTEND Surgery
PROC: 0DQE0ZZ Repair Large Intestine, Open Approach (ICD-10-PCS; principal; 2016-11-14 12:00)
DX: Z43.3 Encounter for attention to colostomy (principal); E27.40 Unspecified adrenocortical insufficiency; K22.8 Other specified diseases of esophagus; J44.1 Chronic obstructive pulmonary disease with (acute) exacerbation; E78.5 Hyperlipidemia, unspecified; F17.210 Nicotine dependence, cigarettes, uncomplicated; F32.9 Major depressive disorder, single episode, unspecified; F41.9 Anxiety disorder, unspecified; G40.909 Epilepsy, unspecified, not intractable, without status epilepticus; I25.2 Old myocardial infarction; G43.909 Migraine, unspecified, not intractable, without status migrainosus; R11.2 Nausea with vomiting, unspecified; T50.995A Adverse effect of other drugs, medicaments and biological substances, initial encounter; K57.90 Diverticulosis of intestine, part unspecified, without perforation or abscess without bleeding; J45.909 Unspecified asthma, uncomplicated; Z85.038 Personal history of other malignant neoplasm of large intestine; Z79.899 Other long term (current) drug therapy; Z82.49 Family history of ischemic heart disease and other diseases of the circulatory system; Y92.239 Unspecified place in hospital as the place of occurrence of the external cause
CPT/HCPCS: 71020; 80048; 80051; 85025; 85027; 86850; 86900; 86901; 88304; 88307; 94640; 94760

== ENCOUNTER → 2017-10-19 | Outpatient (CLI) | payer OTHER ==
[2017-10-19 13:11] VITALS: BP 135/81; PULSE 106; RESP 16; TEMP 98.2; BMI 38.2
--- NOTE | 2017-10-19 16:24 | P.HPBAR ---
Bariatric H&P - History & Physicial H&P Date: 10/19/17 History & Physicial: Visit/CC: initial visit Patient initial contact: Initial weight: 95.708 kg Initial weight in pounds: 211.00 Height: 5 ft 2.25 in Initial BMI: 38.2 Last weight: Current weight: 95.708 kg Current weight in pounds: 211.00 Current BMI: 38.2 [place] body weight (based on NIH guidelines): 50.462 kg Excess body weight loss: 0.0% The patient is a 56 year-old F who presents for Bariatric Assessment. Patient presents today for new patient consultation. Patient is morbidly obese with BMI 39. She's had lifetime problems obesity. She is interested in having a sleeve gastrectomy performed. Past Medical History Past Medical History: Asthma, Cancer, COPD, Hyperlipidemia, Myocardial Infarction (PA), Seizure Disorder Additional Past Medical History / Comment(s): migraines, colon cancer status post bowel resection without need for chemotherapy ,LAST SEIZUE AUG 30, 2016, PA EKG 2013 Last Myocardial Infarction Date:: JANUARY2003 PER EKG History of Any Multi-Drug Resistant Organisms: VRE Year Discovered:: 08/01/16 MDRO Source:: Abdomen Past Surgical History: Appendectomy, Bowel Resection, Cholecystectomy, Hernia Repair, Tonsillectomy Additional Past Surgical History / Comment(s): COLOSTOMY Past Anesthesia/Blood Transfusion Reactions: Previous Problems w/ Anesthesia Additional Past Anesthesia/Blood Transfusion Reaction / Comm: "spinal anesthesia WITH COLON SURGERY- WHEN THE TUBE WAS REMOVED AIR BUBBLE WENT THE BRAIN. SHE WAS TRANSFERED TO ICU BECAUSE OF SEIZURES" AUG 2016" Past Psychological History: Anxiety, Depression Smoking Status: Current every day smoker Past Alcohol Use History: Rare Additional Past Alcohol Use History / Comment(s): QUIT, BUT STARTED BACK SMOKING RECENTLY APPROXIMATELY 1/2PPD Past Drug Use History: None Reported - Past Family History Mother Family Medical History: No Reported History Father Family Medical History: COPD, Coronary Artery Disease (CAD) Surgical - Exam Vital Signs Temp Pulse Resp BP 98.2 F 106 H 16 135/81 10/19/17 13:09 10/19/17 13:09 10/19/17 13:09 10/19/17 13:09 - General well developed, no distress - Eyes PERRL - ENT normal pinna - Neck no masses - Respiratory normal expansion - Cardiovascular Rhythm: regular - Abdomen Abdomen: soft, non tender Bariatric Assessment & Plan Plan: Morbid obesity. Patient has multiple comorbidities related to morbid obesity. She would benefit from sleeve gastrectomy. Over the risks and benefits of procedure. Patient will follow-up in one month for recheck. Bariatric Checklist Checklist: Plan: Checklist: EGD: 1. Hiatal hernia: 2. H. Pylori: HgbA1c: Vitamin D: Smoking: Current every day smoker Primary care physician referral: Psychiatry clearance: Cardiology clearance: Sleep study: Diet journal: VTE risk score: VTE risk level: Rehab needs at discharge:
== END | disposition home or self-care (01) ==
LOC: BARWHC3 12:49
PROVIDERS: ATTEND Surgery
DX: E66.01 Morbid (severe) obesity due to excess calories (principal); J45.909 Unspecified asthma, uncomplicated; E78.5 Hyperlipidemia, unspecified; I25.2 Old myocardial infarction; F32.9 Major depressive disorder, single episode, unspecified; F41.9 Anxiety disorder, unspecified; F17.200 Nicotine dependence, unspecified, uncomplicated; G40.909 Epilepsy, unspecified, not intractable, without status epilepticus; Z85.038 Personal history of other malignant neoplasm of large intestine; Z98.890 Other specified postprocedural states; Z90.89 Acquired absence of other organs; Z90.49 Acquired absence of other specified parts of digestive tract; Z93.3 Colostomy status; Z68.39 Body mass index [BMI] 39.0-39.9, adult
CPT/HCPCS: 99201

== ENCOUNTER → 2019-04-19 | Outpatient (CLI) | payer OTHER ==
--- NOTE | 2019-04-19 11:55 | CT ---
EXAMINATION TYPE: CT abdomen pelvis w con DATE OF EXAM: 04/19/2019 COMPARISON: HISTORY: Abdominal wall hernia CT DLP: 1612 mGycm Automated exposure control for dose reduction was used. TECHNIQUE: Helical acquisition of images from the lung bases through the pelvis have been completed. CONTRAST: Performed without Oral Contrast and with IV Contrast, patient injected with 100 ml mL of Isovue 300. FINDINGS: Anterior abdominal wall shows postoperative changes. There are 2 anterior abdominal wall he rnias present. The containing bowel loops and show wide mouth. LUNG BASES: No significant abnormality is appreciated. AORTA: No significant abnormality is appreciated. LIVER/GB: No significant change is appreciated. Gallbladder is absent. Liver shows low attenuation po ssibly due to hepatic steatosis. PANCREAS: No significant abnormality is seen. SPLEEN: No significant abnormality is seen. ADRENALS: No significant abnormality is seen. KIDNEYS: Upper pole right kidney shows interval development of a focus of low attenuation with some p erinephric stranding measuring approximately 4.1 x 3.4 x 2.6 cm. The atrophic portion of the upper po le of the right kidney is again noted with areas of cortical thinning and stone formation, caliectasi s. Some local cyst formation at the upper pole may represent trapped calyces with overlying cortical thinning. REPRODUCTIVE ORGANS: Focal area of enhancement within the uterus may be due to an underlying fibroid. The fluid collection posteriorly seen on prior exam has resolved. High density at this level may rep resent calcification or postop change, additional areas of probable bowel suture noted. BOWEL: No significant abnormality is seen. High attenuation at the level of the sigmoid colon may be due to an anastomosis, there is some residual diverticular change. FREE AIR: No Free Air visible. ASCITES: None visible. PELVIC ADENOPATHY: None visualized. RETROPERITONEAL ADENOPATHY: No Retroperitoneal Adenopathy visible. URINARY BLADDER: No significant abnormality is seen. OSSEOUS STRUCTURES: No significant interval change is seen. 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 ANTERIOR ABDOMINAL WALL HERNIAS DESCRIBED.
== END | disposition home or self-care (01) ==
LOC: RADCTMAIN 08:22
PROVIDERS: ATTEND Student in an Organized Health Care Education/Training Program
DX: K43.9 Ventral hernia without obstruction or gangrene (principal)
CPT/HCPCS: 74177; Q9967

== ENCOUNTER 2019-04-26 05:57 | Day surgery (SDC) | payer OTHER ==
[2019-04-22 15:40] VITALS: BMI 35.8
[~2019-04-26 05:57] MED LIST changes: -DEXAMETHASONE SOD PHOSPHATE 10 MG/ML 1 ML VIAL IV ONE; -HEPARIN SODIUM,PORCINE 5,000 UNIT/ML 1 ML VIAL SQ ONE; +LACTATED RINGERS 1,000 ML IV SCH; +LIDOCAINE 1% 20 ML VIAL (10MG/ML) FOR IV START INTRADERMA PRN; -MIDAZOLAM 2 MG/2 ML VIAL IV PRN; -ONDANSETRON 4 MG/2 ML VIAL IVP ONE; -SCOPOLAMINE 1.5MG/72HR PATCH TRANSDERM ONE; -ceFAZolin 2 GM in SODIUM CHLORIDE 0.9% 100 ML IVPB ONE; -metroNIDAZOLE-NS PMX 500 MG in SALINE 1 100ML.BAG IVPB ONE
[2019-04-26 07:19] VITALS: TEMP 98.5
[2019-04-26] MEDS ORDERED: LIDOCAINE 1% INJ 10MG/ML (20 ML MDV) ONE (07:37)
[2019-04-26] MEDS ORDERED: PROPOFOL 10 MG/ML 20 ML VIAL IV ONE (07:37)
--- NOTE | 2019-04-26 08:13 | P.OP ---
Date of Procedure: 04/26/19 Preoperative Diagnosis: History of colon cancer Postoperative Diagnosis: Polyp 5 Procedure(s) Performed: Colonoscopy with hot snare polypectomy 5 Anesthesia: MAC Surgeon: Darryl Downs Estimated Blood Loss (ml): 1 Condition: stable Disposition: same day Description of Procedure: Patient is brought to the Endo suite placed in left lateral decubitus position underwent sedation per department of anesthesia timeout performed correct patient correct procedure correct site was verified rectal exam was performed no gross abnormalities were noted scope was passed from the rectum to the cecum with ease and slowly withdrawn being sure to visualize all persaud of the colon on the way out on the way out the transverse colon was noted to have 3 pedunculated polyps these were all removed with hot snare polypectomy there were all within 5 cm of each other. The anastomosis was notably patent with no signs of recurrence. There were 2 polyps noted in the rectum at 2 cm. These were removed with hot snare. There pedunculated. All specimens are sent to pathology. The scope was retroflexed and no abnormalities were noted. The scope was then withdrawn patient tolerated the procedure well no apparent complications plan for repeat colonoscopy in 1-3 years pending pathology report
[2019-04-26 08:18] VITALS: RESP 18
[2019-04-26 08:49] VITALS: BP 108/64; PULSE 68
== END 2019-04-26 09:00 | disposition home or self-care (01) ==
LOC: ORWHC2ENDO 05:57
PROVIDERS: ATTEND Student in an Organized Health Care Education/Training Program
DX: Z12.11 Encounter for screening for malignant neoplasm of colon (principal); D12.3 Benign neoplasm of transverse colon; D12.8 Benign neoplasm of rectum; J45.909 Unspecified asthma, uncomplicated; F17.210 Nicotine dependence, cigarettes, uncomplicated; F32.9 Major depressive disorder, single episode, unspecified; Z86.69 Personal history of other diseases of the nervous system and sense organs; Z85.038 Personal history of other malignant neoplasm of large intestine; Z79.899 Other long term (current) drug therapy; Z90.49 Acquired absence of other specified parts of digestive tract; Z98.890 Other specified postprocedural states; Z90.89 Acquired absence of other organs
CPT/HCPCS: 88305; 45385; J2001; J2704

== ENCOUNTER 2019-06-20 14:48 | Emergency (ER) | payer OTHER ==
[2019-06-20 14:58] VITALS: BP 111/77; PULSE 99; RESP 18; TEMP 97.5
[2019-06-20] MEDS ORDERED: ACET/COD 300 MG/30 MG STARTER PACK 6 TAB BTL PO STA (15:14)
--- NOTE | 2019-06-20 15:16 | ED ---
Upper Extremity HPI - General Chief Complaint: Extremity Injury, Upper Stated Complaint: Fall-Wrist Pain Time Seen by Provider: 06/20/19 14:58 Source: patient, family Mode of arrival: ambulatory Limitations: no limitations - History of Present Illness Initial Comments: 58-year-old female presenting today for chief complaint of left wrist pain. Patient states she was chasing after her dog who was being attacked by another dog when she tripped falling extending her left wrist. Patient denies hitting her head or LOC. Denies pain of the neck back, chest abdomen or LE. patient states that he elbow and shoulder are okay as well as the digits of the left hand but from the wrist to mid forearm she is experiencing pain with all ranges of motion of the left wrist that improved with rest. Pain sharp with movement, touch. Dull ache at rest. Patient denies numbness tingling loss sensation weakness of the extremity. Patient denies other complaint or injuries. Denies any dog bites or breaks in the skin. - Related Data Home Medications Medication Instructions Recorded Confirmed Venlafaxine HCl [Effexor XR] 150 mg PO BID 07/16/16 04/26/19 Albuterol Inhaler [Ventolin Hfa 1 - 2 puff INHALATION RT-Q6H PRN 04/26/17 04/26/19 Inhaler] Ipratropium-Albuterol Nebulize 3 ml INHALATION RT-QID PRN 04/22/19 04/26/19 [Duoneb 0.5 mg-3 mg/3 ml Soln] Allergies Allergy/AdvReac Type Severity Reaction Status Date / Time No Known Allergies Allergy Verified 06/20/19 14:55 Review of Systems ROS Statement: Those systems with pertinent positive or pertinent negative responses have been documented in the HPI. ROS Other: All systems not noted in ROS Statement are negative. Past Medical History Past Medical History: Asthma, Cancer, COPD, Hyperlipidemia, Myocardial Infarctio n ([place]), Seizure Disorder Additional Past Medical History / Comment(s): migraines, colon cancer status post bowel resection without need for chemotherapy ,LAST SEIZUE AUG 30, 2016, [place] EKG 2013 Last Myocardial Infarction Date:: JANUARY2003 PER EKG History of Any Multi-Drug Resistant Organisms: VRE Date of last positivie culture/infection: 08/01/16 MDRO Source:: Abdomen Past Surgical History: Appendectomy, Bowel Resection, Cholecystectomy, Hernia Repair, Tonsillectomy Additional Past Surgical History / Comment(s): COLOSTOMY Past Anesthesia/Blood Transfusion Reactions: Previous Problems w/ Anesthesia Additional Past Anesthesia/Blood Transfusion Reaction / Comment(s): "spinal anesthesia WITH COLON SURGERY- WHEN THE TUBE WAS REMOVED AIR BUBBLE WENT THE BRAIN. SHE WAS TRANSFERED TO ICU BECAUSE OF SEIZURES" AUG 2016" Past Psychological History: Anxiety, Depression Smoking Status: Current every day smoker Past Alcohol Use History: None Reported Past Drug Use History: None Reported - Past Family History Mother Family Medical History: No Reported History Father Family Medical History: COPD, Coronary Artery Disease (CAD) General Exam - General Exam Comments Initial Comments: General: The patient is awake and alert, in no distress, and does not appear acutely ill. Eye: +3 mm pupils are equal, round and reactive to light, extra-ocular movements are intact. No nystagmus. There is normal conjunctiva bilaterally. No signs of icterus. Cardiovascular: There is a regular rate and rhythm. No murmur, rub or gallop is appreciated. Respiratory: Lungs are clear to auscultation, respirations are non-labored, breath sounds are equal. No wheezes, stridor, rales, or rhonchi. Musculoskeletal: Normal ROM, no tenderness athe MCP PIP and DIP joints, no swelling of wrist. no anatomical snuff box tenderness, diffuse tenderness over the carpal bones.Strength 5/5. Sensation intact. Patient is able to make the okay fingers crossed thumbs-up and oppose the small digit and thumb without difficulty. No tenderness to palpation of the elbow or shoulder or over the clavicle. Entire extremity was examined after removal of shirt. Radial pulses equal bilaterally 2+. Neurological: A&O x 3. CN II-XII intact grossly, There are no obvious motor or sensory deficits. Coordination appears grossly intact. Speech is normal. Skin: Skin is warm and dry and no rashes. Psychiatric: Cooperative, appropriate mood & affect, normal judgment. Limitations: no limitations Course Vital Signs 06/20/19 14:55 Temperature 97.5 F L Pulse Rate 99 Respiratory 18 Rate Blood Pressure 111/77 O2 Sat by Pulse 93 L Oximetry Procedures - Incision & Drainage Site: other (finger) I&D Cleaning Method: Iodine Scalpel Used: #11 Medical Decision Making - Medical Decision Making 58-year-old female presenting for cc of fall, left wrist pain. Denies other injuries. XR (-) for acute process. No snuffbox tenderness. Patient neurovascularly intact. Splint applied for comfort thumb spica short arm, pre- padded synthetic. Repeat neurovascular exam intact after splinting. patient encourage to f/u with PCP if pain persists XR or obtain MRI of wrist. Patient agreeable with return parameters and discharge case ddiscussed with Dr. Marino. Disposition Clinical Impression: Wrist pain, Fall, Left wrist pain Disposition: HOME SELF-CARE Condition: Good Instructions (If sedation given, give patient instructions): Wrist Injury (ED) Additional Instructions: Please use medication as discussed. Please follow-up with family doctor in the next 2 days, if pain persists > 7 days recommend repeat imaging and or MRI of the wrist. Please return to emergency room if the symptoms increase or worsen or for any other concerns. Is patient prescribed a controlled substance at d/c from ED?: No Referrals: None,Stated [Primary Care Provider] - 1-2 days Time of Disposition: 15:45
--- NOTE | 2019-06-20 15:44 | XR ---
EXAMINATION TYPE: XR forearm LT DATE OF EXAM: 06/20/2019 CLINICAL HISTORY: pain TECHNIQUE: Frontal and lateral images of the left forearm are obtained. COMPARISON: None. FINDINGS: There is no acute fracture/dislocation evident. The joint spaces appear within normal limi ts. The overlying soft tissue appears unremarkable. IMPRESSION: There is no acute fracture or dislocation. ICD 10 NO FRACTURE, INITIAL EVALUATION
== END 2019-06-20 15:53 | disposition home or self-care (01) ==
LOC: EC 14:48
DX: M25.532 Pain in left wrist (principal); J44.9 Chronic obstructive pulmonary disease, unspecified; F41.9 Anxiety disorder, unspecified; F32.9 Major depressive disorder, single episode, unspecified; I25.2 Old myocardial infarction; F17.200 Nicotine dependence, unspecified, uncomplicated; Z79.899 Other long term (current) drug therapy; W01.0XXA Fall on same level from slipping, tripping and stumbling without subsequent striking against object, initial encounter
CPT/HCPCS: 29125; 99283

== ENCOUNTER → 2019-09-07 | Outpatient (CLI) | payer OTHER ==
--- NOTE | 2019-09-07 12:06 | XR ---
EXAMINATION TYPE: XR wrist complete LT DATE OF EXAM: 09/07/2019 CLINICAL HISTORY: Left wrist pain laterally. No stated injury. TECHNIQUE: Frontal, lateral and oblique images of the left wrist are obtained. Navicular view was al so obtained. COMPARISON: None FINDINGS: There is no acute fracture/dislocation evident in the left wrist. The joint spaces in the left wrist appear aligned. Mild arthropathy of the first carpometacarpal joint demonstrated as osseo us proliferation and joint space narrowing. Old healed triquetral fracture on the lateral view. The o verlying soft tissue appears unremarkable. IMPRESSION: There is no acute fracture or dislocation in the left wrist. Mild arthropathy of the fir st carpometacarpal joint.
== END | disposition home or self-care (01) ==
LOC: RADXRMAIN 11:28
PROVIDERS: ATTEND Family Medicine
DX: M18.12 Unilateral primary osteoarthritis of first carpometacarpal joint, left hand (principal)

== ENCOUNTER → 2019-09-09 | Outpatient (CLI) | payer OTHER ==
[2019-09-09 11:16] LABS: Basophils % (A) 0 %; Eosinophils # (A) 0.1 k/uL (0-0.7); Eosinophils % (A) 1 %; HCT 46.3 % (34.0-46.0); Lymphocytes # (A) 2.6 k/uL (1.0-4.8); Lymphocytes % (A) 26 %; MCH 28.6 pg (25.0-35.0); MCHC 32.4 g/dL (31.0-37.0); MCV 88.3 fL (80.0-100.0); Mean Platelet Volume 7.1; Monocytes # (A) 0.6 k/uL (0-1.0); Monocytes % (A) 6 %; Neutrophils # (A) 6.5 k/uL (1.3-7.7); Neutrophils % (A) 65 %; Platelet Count 314 k/uL (150-450); RBC 5.24 m/uL (3.80-5.40); RDW 13.1 % (11.5-15.5)
[2019-09-09 17:48] LABS: African American GFR (CKD) 94.2 (60.0-200.0); Albumin 4.3 g/dL (3.80-4.90); Albumin/Globulin Ratio 2.05 (1.60-3.17); Anion Gap 6.9 mmol/L (4.00-12.00); BUN/Creat Ratio 13.75 Ratio (12.00-20.00); Calcium 9.2 mg/dL (8.7-10.3); Carbon Dioxide 28.1 mmol/L (21.6-31.8); Chol/HDL Ratio 5.33; Globulin 2.1 g/dL (1.6-3.3); LDL Cholesterol,Calculated 194.4 mg/dL (0.0-131.0); Non-African American GFR(CKD) 81.3 (60.0-200.0); Potassium 4.7 mmol/L (3.5-5.5); Total Bilirubin 0.3 mg/dL (0.3-1.2); Total Protein 6.4 g/dL (6.2-8.2); VLDL Calculation 26.6 mg/dL (5.00-40.00)
[2019-09-10 02:29] LABS: Hemoglobin A1C 6.9 % (4.0-6.0)
== END | disposition home or self-care (01) ==
LOC: LABWHC1 10:16
PROVIDERS: ATTEND Family Medicine
DX: Z00.00 Encounter for general adult medical examination without abnormal findings (principal); J44.9 Chronic obstructive pulmonary disease, unspecified; E78.5 Hyperlipidemia, unspecified; Z90.49 Acquired absence of other specified parts of digestive tract
CPT/HCPCS: 36415; 80053; 80061; 82306; 82607; 83036; 84443; 85025

== ENCOUNTER → 2019-09-16 | Outpatient (CLI) | payer OTHER ==
--- NOTE | 2019-09-16 10:14 | CTL ---
EXAMINATION TYPE: CT Low Dose Lung DATE OF EXAM ORDERED: 09/16/2019 HISTORY: Personal history tobacco use. Lung cancer screening CT DLP: 86.[address] CTDI: 2.4 mGy Automated exposure control for dose reduction was used. SCREENING VISIT: 1 COMPARISON: Prior chest CT 09/16/2014 TECHNIQUE: Low dose computed tomography scan was performed through the chest at 1 mm thick sections a nd reconstructed images in the coronal plane at [address] DIAGNOSTIC QUALITY: Satisfactory FINDINGS: LUNG NODULES: Present, detailed below: Small subpleural nodule left upper lobe measuring 2 to 3 mm is stable. The previously identified nodu lar density in the subpleural location right lower lobe is no longer seen. LUNGS: COPD: Severity: None Fibrosis: Severity: Mild Lymph nodes: Benign appearance Other findings: RIGHT PLEURAL SPACE: Effusion: None Calcification: None Thickening: None Pneumothorax: None LEFT PLEURAL SPACE: Effusion: None Calcification: None Thickening: None Pneumothorax: None HEART: Heart Size: Small Coronary calcification: Mild Pericardial effusion: None OTHER FINDINGS: Upper abdomen: Postop changes are noted status post cholecystectomy. Surgical clips present along the anterior abdominal wall. Bony thorax: There is multilevel thoracic spondylosis. Supraclavicular region: Unremarkable Other: IMPRESSION: Benign FOLLOW UP CT CHEST RECOMMENDATION: [address] LUNG RAD: 2
== END | disposition home or self-care (01) ==
LOC: RADCTMAIN 08:28
PROVIDERS: ATTEND Family Medicine
DX: Z12.2 Encounter for screening for malignant neoplasm of respiratory organs (principal); F17.210 Nicotine dependence, cigarettes, uncomplicated

== ENCOUNTER 2021-04-12 14:38 | Observation (INO) | payer OTHER ==
--- NOTE | 2021-04-12 15:43 | ED ---
General Adult HPI - General Stated complaint: KRISTA Time Seen by Provider: 04/12/21 15:42 Source: patient, RN notes reviewed Mode of arrival: ambulatory Limitations: no limitations - History of Present Illness Initial comments: 60-year-old female presents emergency Department chief complaint shortness of breath. Patient started having increasing shortness but that started yesterday. Patient states thatshe was placed on azithromycin, prednisone. Patient does have history of COPD and asthma. Patient patient has no history of fever. Patient states her lungs are tight. No nausea vomiting. Patient does have history of smoking. - Related Data Home Medications Medication Instructions Recorded Confirmed Ipratropium-Albuterol Nebulize 3 ml INHALATION RT-QID PRN 04/22/19 04/12/21 [Duoneb 0.5 mg-3 mg/3 ml Soln] Allergies Allergy/AdvReac Type Severity Reaction Status Date / Time No Known Allergies Allergy Verified 04/12/21 15:42 Review of Systems ROS Statement: Those systems with pertinent positive or pertinent negative responses have been documented in the HPI. ROS Other: All systems not noted in ROS Statement are negative. Past Medical History Past Medical History: Asthma, Cancer, COPD, Hyperlipidemia, Myocardial Infarction ([place]), Seizure Disorder Additional Past Medical History / Comment(s): migraines, colon cancer status post bowel resection without need for chemotherapy ,LAST SEIZUE AUG 30, 2016, [place] EKG 2013 Last Myocardial Infarction Date:: JANUARY2003 PER EKG History of Any Multi-Drug Resistant Organisms: VRE Date of last positivie culture/infection: 08/01/16 MDRO Source:: Abdomen Past Surgical History: Appendectomy, Bowel Resection, Cholecystectomy, Hernia Repair, Tonsillectomy Additional Past Surgical History / Comment(s): COLOSTOMY Past Anesthesia/Blood Transfusion Reactions: Previous Problems w/ Anesthesia Additional Past Anesthesia/Blood Transfusion Reaction / Comment(s): "spinal anesthesia WITH COLON SURGERY- WHEN THE TUBE WAS REMOVED AIR BUBBLE WENT THE BRAIN. SHE WAS TRANSFERED TO ICU BECAUSE OF SEIZURES" AUG 2016" Past Psychological History: Anxiety, Depression Smoking Status: Current every day smoker Past Alcohol Use History: None Reported Past Drug Use History: None Reported - Past Family History Mother Family Medical History: No Reported History Father Family Medical History: COPD, Coronary Artery Disease (CAD) General Exam Limitations: no limitations General appearance: alert, in distress Head exam: Present: atraumatic, normocephalic, normal inspection Eye exam: Present: normal appearance, PERRL, EOMI. Absent: scleral icterus, conjunctival injection, periorbital swelling Respiratory exam: Present: respiratory distress, wheezes, accessory muscle use, prolonged expiratory. Absent: normal lung sounds bilaterally, rales, rhonchi, stridor Cardiovascular Exam: Present: regular rate, normal rhythm, normal heart sounds. Absent: systolic murmur, diastolic murmur, rubs, gallop, clicks GI/Abdominal exam: Present: soft, normal bowel sounds. Absent: distended, tenderness, guarding, rebound, rigid Neurological exam: Present: alert, oriented X3 Course Vital Signs 04/12/21 04/12/21 04/12/21 15:38 16:27 17:08 Temperature 98.8 F Pulse Rate 70 88 Respiratory 30 H 24 Rate Blood Pressure 107/68 O2 Sat by Pulse 92 L Oximetry Medical Decision Making - Medical Decision Making Patient x-ray shows scarring. Patient continues to have shortness breath, wheezing after multiple treatments. Patient remained for COPD exacerbation, hypoxia - Lab Data Result diagrams: 04/12/21 16:00 04/12/21 16:00 Lab Results 04/12/21 04/12/21 04/12/21 Range/Units 16:00 16:00 16:00 WBC 12.9 H (3.8-10.6) k/uL RBC 4.98 (3.80-5.40) m/uL Hgb 14.5 (11.4-16.0) gm/dL Hct 45.7 (34.0-46.0) % MCV 91.7 (80.0-100.0) fL MCH 29.1 (25.0-35.0) pg MCHC 31.7 (31.0-37.0) g/dL RDW 13.7 (11.5-15.5) % Plt Count 308 (150-450) k/uL MPV 7.4 Neutrophils % 75 % Lymphocytes % 17 % Monocytes % 6 % Eosinophils % 1 % Basophils % 0 % Neutrophils # 9.6 H (1.3-7.7) k/uL Lymphocytes # 2.2 (1.0-4.8) k/uL Monocytes # 0.8 (0-1.0) k/uL Eosinophils # 0.2 (0-0.7) k/uL Basophils # 0.0 (0-0.2) k/uL PT 10.0 (9.0-12.0) sec INR 0.9 (<1.2) APTT 23.9 (22.0-30.0) sec Sodium 138 (137-145) mmol/L Potassium 4.6 (3.5-5.1) mmol/L Chloride 101 (98-107) mmol/L Carbon Dioxide 28 (22-30) mmol/L Anion Gap 9 mmol/L BUN 15 (7-17) mg/dL Creatinine 0.47 L (0.52-1.04) mg/dL Est GFR (CKD-EPI)AfAm >90 (>60 ml/min/1.73 sqM) Est GFR (CKD-EPI)NonAf >90 (>60 ml/min/1.73 sqM) Glucose 132 H (74-99) mg/dL Plasma Lactic Acid Nadir (0.7-2.0) mmol/L Calcium 9.3 (8.4-10.2) mg/dL Magnesium 1.7 (1.6-2.3) mg/dL Total Bilirubin 0.6 (0.2-1.3) mg/dL AST 38 H (14-36) U/L ALT 28 (4-34) U/L Alkaline Phosphatase 99 (38-126) U/L Troponin I (0.000-0.034) ng/mL Total Protein 7.0 (6.3-8.2) g/dL Albumin 4.1 (3.5-5.0) g/dL Coronavirus (PCR) (Not Detectd) 04/12/21 04/12/21 04/12/21 Range/Units 16:00 16:00 16:00 WBC (3.8-10.6) k/uL RBC (3.80-5.40) m/uL Hgb (11.4-16.0) gm/dL Hct (34.0-46.0) % MCV (80.0-100.0) fL MCH (25.0-35.0) pg MCHC (31.0-37.0) g/dL RDW (11.5-15.5) % Plt Count (150-450) k/uL MPV Neutrophils % % Lymphocytes % % Monocytes % % Eosinophils % % Basophils % % Neutrophils # (1.3-7.7) k/uL Lymphocytes # (1.0-4.8) k/uL Monocytes # (0-1.0) k/uL Eosinophils # (0-0.7) k/uL Basophils # (0-0.2) k/uL PT (9.0-12.0) sec INR (<1.2) APTT (22.0-30.0) sec Sodium (137-145) mmol/L Potassium (3.5-5.1) mmol/L Chloride (98-107) mmol/L Carbon Dioxide (22-30) mmol/L Anion Gap mmol/L BUN (7-17) mg/dL Creatinine (0.52-1.04) mg/dL Est GFR (CKD-EPI)AfAm (>60 ml/min/1.73 sqM) Est GFR (CKD-EPI)NonAf (>60 ml/min/1.73 sqM) Glucose (74-99) mg/dL Plasma Lactic Acid Nadir 1.6 (0.7-2.0) mmol/L Calcium (8.4-10.2) mg/dL Magnesium (1.6-2.3) mg/dL Total Bilirubin (0.2-1.3) mg/dL AST (14-36) U/L ALT (4-34) U/L Alkaline Phosphatase (38-126) U/L Troponin I <0.012 (0.000-0.034) ng/mL Total Protein (6.3-8.2) g/dL Albumin (3.5-5.0) g/dL Coronavirus (PCR) Not Detected (Not Detectd) Disposition Clinical Impression: COPD exacerbation, Hypoxia Disposition: ADMITTED IP TO THIS HOSP Condition: Fair Referrals: Riley Casas [Primary Care Provider] - 1-2 days
[2021-04-12] MEDS ORDERED: IPRATROPIUM-ALBUTEROL 3 ML NEB INHALATION STA (15:49)
[2021-04-12] MEDS ORDERED: methylPREDNISolone SOD SUCCI 125 MG/2 ML VIAL IV STA (15:49)
[2021-04-12 16:17] LABS: Basophils % (A) 0 %; Eosinophils # (A) 0.2 k/uL (0-0.7); Eosinophils % (A) 1 %; HCT 45.7 % (34.0-46.0); HGB 14.5 gm/dL (11.4-16.0); Lymphocytes # (A) 2.2 k/uL (1.0-4.8); Lymphocytes % (A) 17 %; MCH 29.1 pg (25.0-35.0); MCHC 31.7 g/dL (31.0-37.0); MCV 91.7 fL (80.0-100.0); Mean Platelet Volume 7.4; Monocytes # (A) 0.8 k/uL (0-1.0); Monocytes % (A) 6 %; Neutrophils # (A) 9.6 k/uL (1.3-7.7); Neutrophils % (A) 75 %; Platelet Count 308 k/uL (150-450); RBC 4.98 m/uL (3.80-5.40); RDW 13.7 % (11.5-15.5); WBC 12.9 k/uL (3.8-10.6)
[2021-04-12 16:26] LABS: ALT 28 U/L (4-34); AST 38 U/L (14-36); African American GFR (CKD) >90 (>60 ml/min/1.73 sqM); Albumin 4.1 g/dL (3.5-5.0); Alkaline Phosphatase 99 U/L (38-126); Anion Gap 9 mmol/L; Blood Urea Nitrogen 15 mg/dL (7-17); Calcium 9.3 mg/dL (8.4-10.2); Carbon Dioxide 28 mmol/L (22-30); Chloride 101 mmol/L (98-107); Glucose 132 mg/dL (74-99); Magnesium 1.7 mg/dL (1.6-2.3); Non-African American GFR(CKD) >90 (>60 ml/min/1.73 sqM); Potassium 4.6 mmol/L (3.5-5.1); Sodium 138 mmol/L (137-145); Total Bilirubin 0.6 mg/dL (0.2-1.3)
[2021-04-12 16:29] LABS: INR 0.9 (<1.2); Partial Thromboplastin Time 23.9 sec (22.0-30.0)
--- NOTE | 2021-04-12 16:41 | XR ---
EXAMINATION TYPE: XR chest 2V DATE OF EXAM: 04/12/2021 COMPARISON: 11/17/2016 HISTORY: 60 year-old female shortness of breath, difficulty breathing TECHNIQUE: AP and lateral views FINDINGS: Heart normal size. Aorta and pulmonary vascularity within normal limits. Stable band of opacity left midlung probable scarring. Mild interstitial prominence is noted. No quincy consolidation or pleural e ffusion. Mild hyperinflation. IMPRESSION: Suspect underlying COPD and chronic scarring at the left midlung.
[2021-04-12] MEDS ORDERED: ALBUTEROL NEBULIZED 2.5 MG/3 ML INHALATION PRN (17:19)
[2021-04-12] MEDS: IPRATROPIUM-ALBUTEROL 3 ML NEB INHALATION SCH (20:17)
[2021-04-12] MEDS: methylPREDNISolone SOD SUCCI 125 MG/2 ML VIAL IV SCH (22:44)
--- NOTE | 2021-04-13 01:03 | P.HPIM ---
History of Present Illness H&P Date: 04/12/21 Chief Complaint: SOB 60 year old female with COPD not on home oxygen patient comes in with 3 days of progressive worsening SOB, wheezing, and coughing refractory to home inhalers. she has seen her doc who started her on PO antibiotics and prednisone with no much improvement. she denies any sick contacts, she is vaccinated against covid . she has been helping moving her m others old things, and she thinks she might have been exposed to dust. no recent travel. no hemoptysis, no fever, chills, no body aches. presented to the ED, she was wheezing having difficulty breathing, despite multiple treatments with nebulizers. blood work showed leukocytosis CXR showed chronic scarring mid lung on left side Review of Systems Pertinent positives as noted in HPI. All other systems were reviewed and are negative Past Medical History Past Medical History: Asthma, Cancer, COPD, Hyperlipidemia, Myocardial Infarction ([place]), Seizure Disorder Additional Past Medical History / Comment(s): migraines, colon cancer status post bowel resection without need for chemotherapy ,LAST SEIZUE AUG 30, 2016, [place] EKG 2013 Last Myocardial Infarction Date:: JANUARY2003 PER EKG History of Any Multi-Drug Resistant Organisms: VRE Date of last positivie culture/infection: 08/01/16 MDRO Source:: Abdomen Past Surgical History: Appendectomy, Bowel Resection, Cholecystectomy, Hernia Repair, Tonsillectomy Additional Past Surgical History / Comment(s): COLOSTOMY Past Anesthesia/Blood Transfusion Reactions: Previous Problems w/ Anesthesia Additional Past Anesthesia/Blood Transfusion Reaction / Comment(s): "spinal anesthesia WITH COLON SURGERY- WHEN THE TUBE WAS REMOVED AIR BUBBLE WENT THE BRAIN. SHE WAS TRANSFERED TO ICU BECAUSE OF SEIZURES" AUG 2016" Past Psychological History: Anxiety, Depression Smoking Status: Current every day smoker Past Alcohol Use History: None Reported Past Drug Use History: None Reported - Past Family History Mother Family Medical History: No Reported History Father Family Medical History: COPD, Coronary Artery Disease (CAD) Medications and Allergies Home Medications Medication Instructions Recorded Confirmed Type Ipratropium-Albuterol Nebulize 3 ml INHALATION RT-QID PRN 04/22/19 04/12/21 History [Duoneb 0.5 mg-3 mg/3 ml Soln] Aspirin EC [Ecotrin Low Dose] 81 mg PO DAILY 04/12/21 04/12/21 History Atorvastatin Calcium [Lipitor] 40 mg PO HS 04/12/21 04/12/21 History DULoxetine HCL [Cymbalta] 60 mg PO BID 04/12/21 04/12/21 History Fluticasone Propionate [Flovent 1 puff INHALATION RT-DAILY 04/12/21 04/12/21 History Hfa 220 mcg] QUEtiapine [SEROquel] 100 mg PO HS 04/12/21 04/12/21 History Tiotropium 18 Mcg/Puff [Spiriva] 1 cap INHALATION RT-DAILY 04/12/21 04/12/21 History metFORMIN HCL [Glucophage] 500 mg PO BID 04/12/21 04/12/21 History Allergies Allergy/AdvReac Type Severity Reaction Status Date / Time No Known Allergies Allergy Verified 04/12/21 17:20 Physical Exam Vitals: Vital Signs Temp Pulse Resp BP Pulse Ox 04/12/21 20:19 101 H 04/12/21 18:14 97.1 F L 85 22 103/73 97 04/12/21 17:30 76 04/12/21 17:08 88 04/12/21 16:27 24 04/12/21 15:38 98.8 F 70 30 H 107/68 92 L Intake and Output 04/12/21 04/12/21 04/12/21 06:59 14:59 22:59 Other: Weight 81.647 kg Constitutional: No acute distress, conversant, pleasant Eyes: Anicteric sclerae, moist conjunctiva, Pupils equal round reactive to light ENMT: NC/AT Oropharynx clear, no erythema, or exudates Neck: Supple, FROM, no masses, or JVD No carotid bruits No thyromegaly Lungs: Prolonged expiratory phase with diffuse wheezing Clear to percussion Patient using accessory muscles of respiration Cardiovascular: Heart regular in rate and rhythm, No murmurs, gallops, or rubs No peripheral edema Abdominal: Soft Nontender, no guarding, rebound or rigidity Abdomen moving with respiration Normoactive bowel sounds No hepatomegaly, No splenomegaly No palpable mass Multiple abdominal hernias Skin: Normal temperature, tone, texture, turgor No induration No subcutaneous nodules No rash, lesions No ulcers Extremities: No digital cyanosis No clubbing Pedal pulses intact and symmetrical Radial pulses intact and symmetrical No calf tenderness Psychiatric: Alert and oriented to person, place and time Appropriate affect fair judgement Neuro Muscles Strength 5/5 in all 4 extremities Sensation to light touch grossly present throughout Cranial nerves II-XII grossly intact No focal sensory deficits Lymphatics: no palpable cervical or supraclavicular , or inguinal lymph nodes Results CBC & Chem 7: 04/12/21 16:00 04/12/21 16:00 Labs: Abnormal Lab Results - Last 24 Hours (Table) 04/12/21 04/12/21 Range/Units 16:00 16:00 WBC 12.9 H (3.8-10.6) k/uL Neutrophils # 9.6 H (1.3-7.7) k/uL Creatinine 0.47 L (0.52-1.04) mg/dL Glucose 132 H (74-99) mg/dL AST 38 H (14-36) U/L Assessment and Plan Assessment: Acute COPD exacerbation Check RSV virus Check influenza virus Covid negative Systemic steroids Breathing treatments around the clock and when necessary Resume home inhalers Azithromycin daily Supplemental oxygen as needed Leukocytosis reactive to steroids Chronic conditions Borderline diabetes, insulin sliding scale History of colon cancer Abdominal hernia operation follow-up DVT prophylaxis heparin subcu 3 times a day Anticipated length of stay more than 2 midnights Anticipated discharge home
[2021-04-13] MEDS: QUEtiapine 100 MG TAB PO SCH ×2 (01:18→21:58)
[2021-04-13] MEDS: methylPREDNISolone SOD SUCCI 125 MG/2 ML VIAL IV SCH ×4 (04:57→21:58)
[2021-04-13] MEDS ORDERED: INSULIN ASPART (NovoLOG) 100 UNIT/ML VIAL SQ SCH (07:30)
[2021-04-13] MEDS ORDERED: NON FORMULARY DRUG (Tiotropium 18 Mcg/Puff 1 PUFF Each) INHALATION SCH (08:00)
[2021-04-13] MEDS: IPRATROPIUM-ALBUTEROL 3 ML NEB INHALATION SCH ×4 (08:11→19:18)
[2021-04-13] MEDS: FLUTICASONE 220 MCG INHALER INHALATION SCH (08:11)
[2021-04-13 08:34] LABS: Glucose,Whole Blood 185 mg/dL (75-99)
[2021-04-13] MEDS: INSULIN ASPART (NovoLOG) 100 UNIT/ML VIAL SQ SCH ×4 (09:14→21:58)
[2021-04-13] MEDS: AZITHROMYCIN 500 MG TAB PO SCH (09:14)
[2021-04-13] MEDS: HEPARIN SODIUM,PORCINE/PF 5,000 UNIT/0.5 ML SYRINGE SQ SCH ×3 (09:14→21:58)
[2021-04-13] MEDS: DULoxetine HCL 60 MG CAPSULE.DR PO SCH ×2 (09:14→21:57)
[2021-04-13] MEDS: ASPIRIN 81 MG PO SCH (09:14)
[2021-04-13 12:06] LABS: Glucose,Whole Blood 381 mg/dL (75-99)
[2021-04-13] MEDS: NICOTINE 21MG/24HR PATCH TRANSDERM SCH (13:19)
[2021-04-13] MEDS: HYDROcodone/APAP 10-325MG 1 EACH TAB PO PRN ×2 (13:20→21:59)
--- NOTE | 2021-04-13 16:24 | P.PN ---
Subjective Progress Note Date: 04/13/21 No new complaints. Continues to report wheezing, but does do better than admission. Objective - Vital Signs Vital signs: Vital Signs Temp 97.7 F 04/13/21 07:00 Pulse 92 04/13/21 16:16 Resp 18 04/13/21 07:00 BP 109/67 04/13/21 07:00 Pulse Ox 94 L 04/13/21 07:00 Intake & Output 04/12/21 04/13/21 04/13/21 18:59 06:59 18:59 Intake Total 240 Balance 240 Weight 81.647 kg Intake: Oral 240 Other: Voiding Method Toilet Toilet # Voids 1 2 - Exam Gen: awake, alert HEENT: normocephalic, atraumatic, good hearing acuity, moist mucous membranes Resp: Diminished air exchange, symmetric chest expansion, diffuse wheezing CVS: good distal perfusion x 4, regular rate and rhythm, no murmurs GI: soft, NTTP, ND : no SPT, no CVAT, torres catheter not present MSK: no pitting edema, no clubbing Neuro: non-focal, moving all extremities Psych: cooperative, euthymic mood - Labs CBC & Chem 7: 04/12/21 16:00 04/12/21 16:00 Labs: Abnormal Lab Results - Last 24 Hours (Table) 04/12/21 04/13/21 04/13/21 Range/Units 16:00 08:33 12:05 Creatinine 0.47 L (0.52-1.04) mg/dL Glucose 132 H (74-99) mg/dL POC Glucose (mg/dL) 185 H 381 H (75-99) mg/dL AST 38 H (14-36) U/L Assessment and Plan Assessment: Acute COPD exacerbation Check RSV virus Check influenza virus Covid negative Systemic steroids Breathing treatments around the clock and when necessary Resume home inhalers Azithromycin daily Supplemental oxygen as needed Leukocytosis reactive to steroids Chronic conditions Borderline diabetes, insulin sliding scale History of colon cancer Abdominal hernia operation follow-up DVT prophylaxis heparin subcu 3 times a day Anticipated length of stay more than 2 midnights Anticipated discharge home
[2021-04-13 17:18] LABS: Glucose,Whole Blood 238 mg/dL (75-99)
[2021-04-13 20:10] LABS: Glucose,Whole Blood 331 mg/dL (75-99)
[2021-04-13] MEDS: ATORVASTATIN 40 MG TAB PO SCH (21:57)
[2021-04-14] MEDS: methylPREDNISolone SOD SUCCI 125 MG/2 ML VIAL IV SCH ×4 (05:23→22:13)
[2021-04-14 07:23] LABS: Glucose,Whole Blood 266 mg/dL (75-99)
[2021-04-14] MEDS: FLUTICASONE 220 MCG INHALER INHALATION SCH (07:53)
[2021-04-14] MEDS: IPRATROPIUM-ALBUTEROL 3 ML NEB INHALATION SCH ×4 (07:53→19:45)
[2021-04-14 08:18] LABS: Glucose,Whole Blood 227 mg/dL (75-99)
[2021-04-14] MEDS: INSULIN ASPART (NovoLOG) 100 UNIT/ML VIAL SQ SCH ×4 (08:58→20:37)
[2021-04-14] MEDS: HEPARIN SODIUM,PORCINE/PF 5,000 UNIT/0.5 ML SYRINGE SQ SCH ×3 (08:58→22:18)
[2021-04-14] MEDS: AZITHROMYCIN 500 MG TAB PO SCH (08:59)
[2021-04-14] MEDS: NICOTINE 21MG/24HR PATCH TRANSDERM SCH (08:59)
[2021-04-14] MEDS: DULoxetine HCL 60 MG CAPSULE.DR PO SCH ×2 (08:59→20:25)
[2021-04-14] MEDS: ASPIRIN 81 MG PO SCH (08:59)
[2021-04-14] MEDS: HYDROcodone/APAP 10-325MG 1 EACH TAB PO PRN ×2 (09:04→20:36)
[2021-04-14 12:15] LABS: Glucose,Whole Blood 445 mg/dL (75-99)
[2021-04-14] MEDS: BUTA/APAP/CAF/COD 50-325-40-30 CAP PO PRN ×2 (13:37→20:36)
--- NOTE | 2021-04-14 14:39 | P.PN ---
Subjective Progress Note Date: 04/14/21 Patient continues to have shortness of breath on exertion, significant wheezing on exam. Objective - Vital Signs Vital signs: Vital Signs Temp 97.6 F 04/14/21 07:00 Pulse 75 04/14/21 13:55 Resp 18 04/14/21 13:55 BP 108/64 04/14/21 07:00 Pulse Ox 94 L 04/14/21 07:00 Intake & Output 04/13/21 04/14/21 04/14/21 18:59 06:59 18:59 Intake Total 420 Balance 420 Intake: Oral 420 Other: Voiding Method Toilet Toilet Toilet # Voids 2 2 3 - Exam Gen: awake, alert HEENT: normocephalic, atraumatic, good hearing acuity, moist mucous membranes Resp: Diminished air exchange, symmetric chest expansion, diffuse wheezing CVS: good distal perfusion x 4, regular rate and rhythm, no murmurs GI: soft, NTTP, ND : no SPT, no CVAT, torres catheter not present MSK: no pitting edema, no clubbing Neuro: non-focal, moving all extremities Psych: cooperative, euthymic mood - Labs CBC & Chem 7: 04/12/21 16:00 04/12/21 16:00 Labs: Abnormal Lab Results - Last 24 Hours (Table) 04/13/21 04/13/21 04/14/21 Range/Units 17:17 20:09 07:21 POC Glucose (mg/dL) 238 H 331 H 266 H (75-99) mg/dL 04/14/21 04/14/21 Range/Units 08:17 12:13 POC Glucose (mg/dL) 227 H 445 H (75-99) mg/dL Assessment and Plan Assessment: Acute COPD exacerbation Check RSV virus Check influenza virus Covid negative Systemic steroids Breathing treatments around the clock and when necessary Resume home inhalers Azithromycin daily Supplemental oxygen as needed Leukocytosis reactive to steroids Chronic conditions Borderline diabetes, insulin sliding scale History of colon cancer Abdominal hernia operation follow-up DVT prophylaxis heparin subcu 3 times a day Anticipated length of stay more than 2 midnights Anticipated discharge home
[2021-04-14 17:30] LABS: Glucose,Whole Blood 421 mg/dL (75-99)
[2021-04-14 20:22] LABS: Glucose,Whole Blood 417 mg/dL (75-99)
[2021-04-14] MEDS: ATORVASTATIN 40 MG TAB PO SCH (20:25)
[2021-04-14] MEDS: QUEtiapine 100 MG TAB PO SCH (20:25)
[2021-04-14] MEDS: INSULIN DETEMIR (LEVEMIR) 100 UNIT/ML SYR SQ SCH (21:17)
[2021-04-15] MEDS: methylPREDNISolone SOD SUCCI 125 MG/2 ML VIAL IV SCH ×4 (05:32→20:29)
[2021-04-15] MEDS: IPRATROPIUM-ALBUTEROL 3 ML NEB INHALATION SCH ×4 (07:26→19:21)
[2021-04-15] MEDS: FLUTICASONE 220 MCG INHALER INHALATION SCH (07:26)
[2021-04-15 07:41] LABS: Glucose,Whole Blood 200 mg/dL (75-99)
[2021-04-15] MEDS: HEPARIN SODIUM,PORCINE/PF 5,000 UNIT/0.5 ML SYRINGE SQ SCH ×3 (09:11→20:33)
[2021-04-15] MEDS: NICOTINE 21MG/24HR PATCH TRANSDERM SCH (09:11)
[2021-04-15] MEDS: INSULIN ASPART (NovoLOG) 100 UNIT/ML VIAL SQ SCH ×4 (09:11→22:19)
[2021-04-15] MEDS: AZITHROMYCIN 500 MG TAB PO SCH (09:12)
[2021-04-15] MEDS: DULoxetine HCL 60 MG CAPSULE.DR PO SCH ×2 (09:12→20:29)
[2021-04-15] MEDS: ASPIRIN 81 MG PO SCH (09:12)
[2021-04-15] MEDS: BUTA/APAP/CAF/COD 50-325-40-30 CAP PO PRN ×2 (09:22→20:32)
[2021-04-15] MEDS: guaiFENesin 600 MG TABLET.ER PO SCH ×2 (10:38→20:29)
[2021-04-15] MEDS: HYPERTONIC SALINE 3% NEBULIZ 4 ML NEBU INHALATION SCH ×3 (11:11→23:21)
[2021-04-15] MEDS: HYDROcodone/APAP 10-325MG 1 EACH TAB PO PRN ×2 (11:57→20:32)
[2021-04-15 12:15] LABS: Glucose,Whole Blood 246 mg/dL (75-99)
--- NOTE | 2021-04-15 15:24 | P.PN ---
Subjective Progress Note Date: 04/15/21 Ongoing wheezing. Able to be titrated to room air. Still with coughing spells and congestion. Objective - Vital Signs Vital signs: Vital Signs Temp 98.0 F 04/15/21 15:00 Pulse 90 04/15/21 15:17 Resp 16 04/15/21 15:00 BP 125/65 04/15/21 15:00 Pulse Ox 90 L 04/15/21 15:00 Intake & Output 04/14/21 04/15/21 04/15/21 18:59 06:59 18:59 Intake Total 180 1332 Balance 180 1332 Intake: Oral 180 1332 Other: Voiding Method Toilet Toilet Toilet # Voids 3 1 - Exam Gen: awake, alert HEENT: normocephalic, atraumatic, good hearing acuity, moist mucous membranes Resp: Diminished air exchange, symmetric chest expansion, diffuse wheezing CVS: good distal perfusion x 4, regular rate and rhythm, no murmurs GI: soft, NTTP, ND : no SPT, no CVAT, torres catheter not present MSK: no pitting edema, no clubbing Neuro: non-focal, moving all extremities Psych: cooperative, euthymic mood - Labs CBC & Chem 7: 04/12/21 16:00 04/12/21 16:00 Labs: Abnormal Lab Results - Last 24 Hours (Table) 04/14/21 04/14/21 04/15/21 Range/Units 17:29 20:21 07:39 POC Glucose (mg/dL) 421 H 417 H 200 H (75-99) mg/dL 04/15/21 Range/Units 12:14 POC Glucose (mg/dL) 246 H (75-99) mg/dL Assessment and Plan Assessment: Acute COPD exacerbation Check RSV virus Check influenza virus Covid negative Systemic steroids Breathing treatments around the clock and when necessary Resume home inhalers Azithromycin daily Supplemental oxygen as needed Leukocytosis reactive to steroids Chronic conditions Borderline diabetes, insulin sliding scale History of colon cancer Abdominal hernia operation follow-up DVT prophylaxis heparin subcu 3 times a day Anticipated length of stay more than 2 midnights Anticipated discharge home
[2021-04-15 16:53] LABS: Glucose,Whole Blood 449 mg/dL (75-99)
[2021-04-15 20:18] LABS: Glucose,Whole Blood 354 mg/dL (75-99)
[2021-04-15] MEDS: QUEtiapine 100 MG TAB PO SCH (20:29)
[2021-04-15] MEDS: ATORVASTATIN 40 MG TAB PO SCH (20:29)
[2021-04-15] MEDS: INSULIN DETEMIR (LEVEMIR) 100 UNIT/ML SYR SQ SCH (22:20)
[2021-04-16 02:36] VITALS: RESP 18
[2021-04-16] MEDS: methylPREDNISolone SOD SUCCI 125 MG/2 ML VIAL IV SCH ×2 (05:36→12:55)
[2021-04-16 07:41] VITALS: BP 134/76; TEMP 98.5
[2021-04-16] MEDS: IPRATROPIUM-ALBUTEROL 3 ML NEB INHALATION SCH ×2 (07:56→11:41)
[2021-04-16] MEDS: FLUTICASONE 220 MCG INHALER INHALATION SCH (07:56)
[2021-04-16] MEDS: HYPERTONIC SALINE 3% NEBULIZ 4 ML NEBU INHALATION SCH (07:56)
[2021-04-16 08:00] LABS: Glucose,Whole Blood 209 mg/dL (75-99)
[2021-04-16] MEDS: INSULIN ASPART (NovoLOG) 100 UNIT/ML VIAL SQ SCH (08:43)
[2021-04-16] MEDS: AZITHROMYCIN 500 MG TAB PO SCH (08:45)
[2021-04-16] MEDS: ASPIRIN 81 MG PO SCH (08:45)
[2021-04-16] MEDS: HEPARIN SODIUM,PORCINE/PF 5,000 UNIT/0.5 ML SYRINGE SQ SCH (08:45)
[2021-04-16] MEDS: guaiFENesin 600 MG TABLET.ER PO SCH (08:45)
[2021-04-16] MEDS: DULoxetine HCL 60 MG CAPSULE.DR PO SCH (08:46)
[2021-04-16] MEDS: NICOTINE 21MG/24HR PATCH TRANSDERM SCH (08:46)
[2021-04-16] MEDS: BUTA/APAP/CAF/COD 50-325-40-30 CAP PO PRN (08:53)
[2021-04-16 10:23] VITALS: PULSE 71
[2021-04-16] MEDS: HYDROcodone/APAP 10-325MG 1 EACH TAB PO PRN (10:46)
--- NOTE | 2021-04-16 13:58 | P.DS ---
Providers Date of admission: 04/15/21 16:00 Expected date of discharge: 04/16/21 Attending physician: Vikki Hoskins Primary care physician: Riley Casas [facility] Course: Acute Asthma/COPD exacerbation Acute Hypoxemic Respiratory Failure Patient was admitted with respiratory failure secondary to acute asthma/copd exacerbation. She was treated with steroids, nebulizers, and azithromycin with gradual improvement. She did also have significant congestion with thick mucus and she was placed on guaifenesin and hypertonic saline which helped to clear up her mucus. By day of discharge, she was able to ambulate to and from bathroom, with some but significantly improved dyspnea. She was sent home on 15 day prednisone taper, 1 more day of azithromycin and new prescriptions for guaifenisen and hypertonic saline nebulizer. Migraine Headache prescribed short course of fioricet PRN and norco PRN. Chronic conditions Borderline diabetes, insulin sliding scale History of colon cancer Abdominal hernia operation follow-up outpatient Home meds unchanged for these chronic issues. I spent 34 minutes coordinating this complex discharge. Assessment: Gen: awake, alert HEENT: normocephalic, atraumatic, good hearing acuity, moist mucous membranes Resp: Diminished air exchange, symmetric chest expansion, diffuse wheezing CVS: good distal perfusion x 4, regular rate and rhythm, no murmurs GI: soft, NTTP, ND : no SPT, no CVAT, torres catheter not present MSK: no pitting edema, no clubbing Neuro: non-focal, moving all extremities Psych: cooperative, euthymic mood Patient Condition at Discharge: Good Plan - Discharge Summary Discharge Rx Participant: No New Discharge Prescriptions: New guaiFENesin [Mucinex] 600 mg PO Q12HR #60 tablet HYDROcodone/APAP 10-325MG [[place] 10-325] 1 each PO Q8HR PRN #9 tab PRN Reason: Pain predniSONE 0 mg PO DIRECTED #32 tab Azithromycin [Zithromax] 500 mg PO DAILY #1 tab Buta/APAP/Caf/Cod 22-714-59-30 [Fioricet w/Cod 17-903-51-30MG] 1 each PO Q4HR PRN #18 cap PRN Reason: Migraine Headache Hypertonic Saline 3% Nebuliz 4 ml INHALATION Q12H #20 ml Continue Ipratropium-Albuterol Nebulize [Duoneb 0.5 mg-3 mg/3 ml Soln] 3 ml INHALATION RT-QID PRN PRN Reason: Dyspnea Fluticasone Propionate [Flovent Hfa 220 mcg] 1 puff INHALATION RT-DAILY Tiotropium 18 Mcg/Puff [Spiriva] 1 cap INHALATION RT-DAILY Atorvastatin Calcium [Lipitor] 40 mg PO HS Aspirin EC [Ecotrin Low Dose] 81 mg PO DAILY metFORMIN HCL [Glucophage] 500 mg PO BID QUEtiapine [SEROquel] 100 mg PO HS DULoxetine HCL [Cymbalta] 60 mg PO BID Discharge Medication List Ipratropium-Albuterol Nebulize [Duoneb 0.5 mg-3 mg/3 ml Soln] 3 ml INHALATION RT-QID PRN 04/22/19 [History] Aspirin EC [Ecotrin Low Dose] 81 mg PO DAILY 04/12/21 [History] Atorvastatin Calcium [Lipitor] 40 mg PO HS 04/12/21 [History] DULoxetine HCL [Cymbalta] 60 mg PO BID 04/12/21 [History] Fluticasone Propionate [Flovent Hfa 220 mcg] 1 puff INHALATION RT-DAILY 04/12/21 [History] QUEtiapine [SEROquel] 100 mg PO HS 04/12/21 [History] Tiotropium 18 Mcg/Puff [Spiriva] 1 cap INHALATION RT-DAILY 04/12/21 [History] metFORMIN HCL [Glucophage] 500 mg PO BID 04/12/21 [History] Azithromycin [Zithromax] 500 mg PO DAILY #1 tab 04/16/21 [Rx] Buta/APAP/Caf/Cod 70-471-99-30 [Fioricet w/Cod 16-496-46-30MG] 1 each PO Q4HR PRN #18 cap 04/16/21 [Rx] HYDROcodone/APAP 10-325MG [[place] 10-325] 1 each PO Q8HR PRN #9 tab 04/16/21 [Rx] Hypertonic Saline 3% Nebuliz 4 ml INHALATION Q12H #20 ml 04/16/21 [Rx] guaiFENesin [Mucinex] 600 mg PO Q12HR #60 tablet 04/16/21 [Rx] predniSONE 0 mg PO DIRECTED #32 tab 04/16/21 [Rx] Follow up Appointment(s)/Referral(s): Riley Casas [Primary Care Provider] - 1-2 days Patient Instructions/Handouts: COPD (Chronic Obstructive Pulmonary Disease) (GEN), Chronic Lung Disease and Infection Prevention (GEN) Discharge Disposition: HOME SELF-CARE
== END 2021-04-16 12:37 | disposition home or self-care (01) ==
LOC: EC 14:38 → 6NMEDSUR 17:19 → OBSVTOIN 04-15 16:00 → INTOOBSV 04-15 16:00 → UNDODISIN 04-16 12:37
PROVIDERS: ADMIT Internal Medicine; ATTEND Internal Medicine
DX: J44.1 Chronic obstructive pulmonary disease with (acute) exacerbation (principal); J96.01 Acute respiratory failure with hypoxia; J45.901 Unspecified asthma with (acute) exacerbation; G43.909 Migraine, unspecified, not intractable, without status migrainosus; R73.03 Prediabetes; Z20.822 Contact with and (suspected) exposure to COVID-19; F17.200 Nicotine dependence, unspecified, uncomplicated; E78.5 Hyperlipidemia, unspecified; D72.829 Elevated white blood cell count, unspecified; G40.909 Epilepsy, unspecified, not intractable, without status epilepticus; I25.2 Old myocardial infarction; K46.9 Unspecified abdominal hernia without obstruction or gangrene; F41.9 Anxiety disorder, unspecified; F32.9 Major depressive disorder, single episode, unspecified; Z79.82 Long term (current) use of aspirin; Z79.51 Long term (current) use of inhaled steroids; Z79.84 Long term (current) use of oral hypoglycemic drugs; Z16.24 Resistance to multiple antibiotics; Z79.899 Other long term (current) drug therapy; Z93.3 Colostomy status; Z86.69 Personal history of other diseases of the nervous system and sense organs; Z90.49 Acquired absence of other specified parts of digestive tract; Z85.038 Personal history of other malignant neoplasm of large intestine; Z82.49 Family history of ischemic heart disease and other diseases of the circulatory system; Z82.5 Family history of asthma and other chronic lower respiratory diseases
CPT/HCPCS: 99285; 96376 ×5; 96372 ×4; 96365; 96375; 36415; 94640 ×9; 93005; 80053; 83605; 83735; 84484; 85025; 85610; 85730; 87502; 87634; 87635; 71046; G0378 ×5; S4990 ×4; J2930 ×5; J0696; J1644 ×4

== ENCOUNTER 2021-05-03 15:59 | Inpatient (IN) | payer OTHER ==
[2021-05-03] MEDS ORDERED: IPRATROPIUM-ALBUTEROL 3 ML NEB INHALATION STA (17:06)
[2021-05-03] MEDS ORDERED: methylPREDNISolone SOD SUCCI 125 MG/2 ML VIAL IVP STA (17:11)
[2021-05-03 17:29] LABS: Basophils # (A) 0.1 k/uL (0-0.2); Basophils % (A) 1 %; Eosinophils # (A) 0.1 k/uL (0-0.7); Eosinophils % (A) 2 %; HCT 44.2 % (34.0-46.0); HGB 14.3 gm/dL (11.4-16.0); Lymphocytes # (A) 1.6 k/uL (1.0-4.8); Lymphocytes % (A) 20 %; MCH 29.3 pg (25.0-35.0); MCHC 32.5 g/dL (31.0-37.0); MCV 90.3 fL (80.0-100.0); Mean Platelet Volume 7.4; Monocytes # (A) 0.7 k/uL (0-1.0); Monocytes % (A) 9 %; Neutrophils # (A) 5.5 k/uL (1.3-7.7); Neutrophils % (A) 68 %; Platelet Count 215 k/uL (150-450); RBC 4.89 m/uL (3.80-5.40); RDW 13.5 % (11.5-15.5); WBC 8.1 k/uL (3.8-10.6)
[2021-05-03 17:38] LABS: ALT 27 U/L (4-34); AST 25 U/L (14-36); African American GFR (CKD) >90 (>60 ml/min/1.73 sqM); Alkaline Phosphatase 98 U/L (38-126); Anion Gap 9 mmol/L; Blood Urea Nitrogen 11 mg/dL (7-17); Calcium 9.2 mg/dL (8.4-10.2); Carbon Dioxide 26 mmol/L (22-30); Chloride 100 mmol/L (98-107); Glucose 156 mg/dL (74-99); Non-African American GFR(CKD) >90 (>60 ml/min/1.73 sqM); Sodium 135 mmol/L (137-145); Total Bilirubin 0.3 mg/dL (0.2-1.3); Total Protein 6.5 g/dL (6.3-8.2)
[2021-05-03 17:44] LABS: INR 0.9 (<1.2); Prothrombin Time 9.9 sec (9.0-12.0)
--- NOTE | 2021-05-03 18:20 | XR ---
EXAMINATION TYPE: XR chest 2V DATE OF EXAM: 05/03/2021 COMPARISON: NONE HISTORY: Cough and fever TECHNIQUE: 2 views FINDINGS: Heart is normal. Lungs are clear of infiltrate. There is no heart failure. There are no hil ar masses. Costophrenic angles are clear. There are chest leads. Bony thorax is intact. IMPRESSION: No active cardiopulmonary disease. Normal heart.
--- NOTE | 2021-05-03 18:24 | ED ---
SOB HPI - General Chief Complaint: Shortness of Breath Stated Complaint: COPD, pneumonia Time Seen by Provider: 05/03/21 16:53 Source: patient Mode of arrival: ambulatory Limitations: no limitations - History of Present Illness Initial Comments: Lida is a 60-year-old female with history of COPD, still smoking cigarettes daily. Patient presents the ER today for evaluation of shortness of breath. Patient was hospitalized earlier this month discharged home on steroids she completed that. She progressively worsen after completing that, she was seen in urgent care today told that she had bilateral pneumonia and needed to be hospitalized again. On arrival in our hospital patient had hypoxia with oxygen saturations of 87-89 on room air, she does not currently use home oxygen. Patient tested negative for COVID-19 urgent care today. - Related Data Home Medications Medication Instructions Recorded Confirmed Ipratropium-Albuterol Nebulize 3 ml INHALATION RT-QID PRN 04/22/19 05/03/21 [Duoneb 0.5 mg-3 mg/3 ml Soln] Aspirin EC [Ecotrin Low Dose] 81 mg PO DAILY 04/12/21 05/03/21 Atorvastatin Calcium [Lipitor] 40 mg PO HS 04/12/21 05/03/21 DULoxetine HCL [Cymbalta] 60 mg PO BID 04/12/21 05/03/21 Fluticasone Propionate [Flovent 1 puff INHALATION RT-DAILY 04/12/21 05/03/21 Hfa 220 mcg] QUEtiapine [SEROquel] 100 mg PO HS 04/12/21 05/03/21 Tiotropium 18 Mcg/Puff [Spiriva] 1 cap INHALATION RT-DAILY 04/12/21 05/03/21 metFORMIN HCL [Glucophage] 500 mg PO BID 04/12/21 05/03/21 Buta/APAP/Caf/Cod 13-780-70-30 1 cap PO Q4HR PRN 05/03/21 05/03/21 [Fioricet w/Cod 46-688-33-30MG] guaiFENesin [Mucinex] 600 mg PO Q12HR PRN 05/03/21 05/03/21 Allergies Allergy/AdvReac Type Severity Reaction Status Date / Time No Known Allergies Allergy Verified 05/03/21 16:29 Review of Systems ROS Statement: Those systems with pertinent positive or pertinent negative responses have been documented in the HPI. ROS Other: All systems not noted in ROS Statement are negative. Past Medical History Past Medical History: Asthma, Cancer, COPD, Hyperlipidemia, Myocardial Infarction ([place]), Seizure Disorder Additional Past Medical History / Comment(s): migraines, colon cancer status post bowel resection without need for chemotherapy ,LAST SEIZUE AUG 30, 2016, [place] EKG 2013 Last Myocardial Infarction Date:: JANUARY2003 PER EKG History of Any Multi-Drug Resistant Organisms: VRE Date of last positivie culture/infection: 08/01/16 MDRO Source:: Abdomen Past Surgical History: Appendectomy, Bowel Resection, Cholecystectomy, Hernia Repair, Tonsillectomy Additional Past Surgical History / Comment(s): COLOSTOMY Past Anesthesia/Blood Transfusion Reactions: Previous Problems w/ Anesthesia Additional Past Anesthesia/Blood Transfusion Reaction / Comment(s): "spinal anesthesia WITH COLON SURGERY- WHEN THE TUBE WAS REMOVED AIR BUBBLE WENT THE BRAIN. SHE WAS TRANSFERED TO ICU BECAUSE OF SEIZURES" AUG 2016" Past Psychological History: Anxiety, Depression Smoking Status: Current every day smoker Past Alcohol Use History: None Reported Past Drug Use History: None Reported - Past Family History Mother Family Medical History: No Reported History Father Family Medical History: COPD, Coronary Artery Disease (CAD) General Exam - General Exam Comments Initial Comments: Physical Exam GENERAL: Appears older than stated age HENT: Normocephalic, Atraumatic. EYES: PERRL, EOMI PULMONARY: Wheezing in all lung tovar CARDIOVASCULAR: RRR Warm and well perfused extremities ABDOMEN: Non-distended SKIN: No rashes or bruising : Deferred NEUROLOGIC: Alert and oriented Normal speech Normal gait MUSCULOSKELETAL: Moving all extremities with no apparent injury PSYCHIATRIC: No SI/HI Limitations: no limitations Course Vital Signs 05/03/21 05/03/21 05/03/21 16:26 17:00 17:02 Temperature 100.5 F H Pulse Rate 107 H 103 H 99 Respiratory 89 H 25 H 18 Rate Blood Pressure 111/76 104/77 110/80 O2 Sat by Pulse 89 L 96 95 Oximetry 05/03/21 05/03/21 05/03/21 17:25 17:30 17:35 Temperature Pulse Rate 87 82 90 Respiratory 22 Rate Blood Pressure 110/80 O2 Sat by Pulse 95 Oximetry 05/03/21 05/03/21 18:00 20:00 Temperature 98.5 F Pulse Rate 76 87 Respiratory 26 H 18 Rate Blood Pressure 118/80 109/65 O2 Sat by Pulse 93 L 93 L Oximetry Medical Decision Making - Medical Decision Making The patient was seen and evaluated, history is obtained from the patient, repeat chest x-ray was obtained and no signs of pneumonia just chronic lung disease. Patient was hypoxic requiring oxygen supplementation. Patient care was discussed with to seek ultrasound physician group agrees with plan for admission with a consult to pulmonology for likely need of home oxygen. - Lab Data Result diagrams: 05/03/21 17:19 05/03/21 17:19 Lab Results 05/03/21 05/03/21 05/03/21 Range/Units 17:05 17:19 17:19 WBC 8.1 (3.8-10.6) k/uL RBC 4.89 (3.80-5.40) m/uL Hgb 14.3 (11.4-16.0) gm/dL Hct 44.2 (34.0-46.0) % MCV 90.3 (80.0-100.0) fL MCH 29.3 (25.0-35.0) pg MCHC 32.5 (31.0-37.0) g/dL RDW 13.5 (11.5-15.5) % Plt Count 215 (150-450) k/uL MPV 7.4 Neutrophils % 68 % Lymphocytes % 20 % Monocytes % 9 % Eosinophils % 2 % Basophils % 1 % Neutrophils # 5.5 (1.3-7.7) k/uL Lymphocytes # 1.6 (1.0-4.8) k/uL Monocytes # 0.7 (0-1.0) k/uL Eosinophils # 0.1 (0-0.7) k/uL Basophils # 0.1 (0-0.2) k/uL PT 9.9 (9.0-12.0) sec INR 0.9 (<1.2) APTT 22.0 (22.0-30.0) sec Sodium (137-145) mmol/L Potassium (3.5-5.1) mmol/L Chloride (98-107) mmol/L Carbon Dioxide (22-30) mmol/L Anion Gap mmol/L BUN (7-17) mg/dL Creatinine (0.52-1.04) mg/dL Est GFR (CKD-EPI)AfAm (>60 ml/min/1.73 sqM) Est GFR (CKD-EPI)NonAf (>60 ml/min/1.73 sqM) Glucose (74-99) mg/dL Lactic Ac Sepsis Rflx Plasma Lactic Acid Nadir (0.7-2.0) mmol/L Calcium (8.4-10.2) mg/dL Total Bilirubin (0.2-1.3) mg/dL AST (14-36) U/L ALT (4-34) U/L Alkaline Phosphatase (38-126) U/L Total Protein (6.3-8.2) g/dL Albumin (3.5-5.0) g/dL Urine Color Yellow Urine Appearance Cloudy H (Clear) Urine pH 6.0 (5.0-8.0) Ur Specific [place] 1.021 (1.001-1.035) Urine Protein Trace H (Negative) Urine Glucose (UA) Trace H (Negative) Urine Ketones Negative (Negative) Urine Blood Negative (Negative) Urine Nitrite Negative (Negative) Urine Bilirubin Negative (Negative) Urine Urobilinogen 2.0 (<2.0) mg/dL Ur Leukocyte Esterase Negative (Negative) Urine RBC 3 (0-5) /hpf Urine WBC 2 (0-5) /hpf Ur Squamous Epith Cells 7 H (0-4) /hpf Hyaline Casts 1 (0-2) /lpf Urine Mucus Rare H (None) /hpf 05/03/21 05/03/21 05/03/21 Range/Units 17:19 17:19 18:08 WBC (3.8-10.6) k/uL RBC (3.80-5.40) m/uL Hgb (11.4-16.0) gm/dL Hct (34.0-46.0) % MCV (80.0-100.0) fL MCH (25.0-35.0) pg MCHC (31.0-37.0) g/dL RDW (11.5-15.5) % Plt Count (150-450) k/uL MPV Neutrophils % % Lymphocytes % % Monocytes % % Eosinophils % % Basophils % % Neutrophils # (1.3-7.7) k/uL Lymphocytes # (1.0-4.8) k/uL Monocytes # (0-1.0) k/uL Eosinophils # (0-0.7) k/uL Basophils # (0-0.2) k/uL PT (9.0-12.0) sec INR (<1.2) APTT (22.0-30.0) sec Sodium 135 L (137-145) mmol/L Potassium 4.0 (3.5-5.1) mmol/L Chloride 100 (98-107) mmol/L Carbon Dioxide 26 (22-30) mmol/L Anion Gap 9 mmol/L BUN 11 (7-17) mg/dL Creatinine 0.54 (0.52-1.04) mg/dL Est GFR (CKD-EPI)AfAm >90 (>60 ml/min/1.73 sqM) Est GFR (CKD-EPI)NonAf >90 (>60 ml/min/1.73 sqM) Glucose 156 H (74-99) mg/dL Lactic Ac Sepsis Rflx Y Plasma Lactic Acid Nadir 2.1 H* (0.7-2.0) mmol/L Calcium 9.2 (8.4-10.2) mg/dL Total Bilirubin 0.3 (0.2-1.3) mg/dL AST 25 (14-36) U/L ALT 27 (4-34) U/L Alkaline Phosphatase 98 (38-126) U/L Total Protein 6.5 (6.3-8.2) g/dL Albumin 4.0 (3.5-5.0) g/dL Urine Color Urine Appearance (Clear) Urine pH (5.0-8.0) Ur Specific [place] (1.001-1.035) Urine Protein (Negative) Urine Glucose (UA) (Negative) Urine Ketones (Negative) Urine Blood (Negative) Urine Nitrite (Negative) Urine Bilirubin (Negative) Urine Urobilinogen (<2.0) mg/dL Ur Leukocyte Esterase (Negative) Urine RBC (0-5) /hpf Urine WBC (0-5) /hpf Ur Squamous Epith Cells (0-4) /hpf Hyaline Casts (0-2) /lpf Urine Mucus (None) /hpf Disposition Clinical Impression: COPD exacerbation Disposition: ADMITTED IP TO THIS [facility] Condition: Serious Is patient prescribed a controlled substance at d/c from ED?: No
[2021-05-03] MEDS ORDERED: ALBUTEROL NEBULIZED 2.5 MG/3 ML INHALATION SCH (20:00)
[2021-05-03] MEDS: QUEtiapine 100 MG TAB PO SCH (21:52)
[2021-05-03 22:12] LABS: Appearance,Urine Cloudy (Clear); Bilirubin,Urine Negative (Negative); Blood,Urine Negative (Negative); Color,Urine Yellow; Glucose,Urine (UA) Trace (Negative); Hyaline Casts,Urine 1 /lpf (0-2); Ketones,Urine Negative (Negative); Leukocyte Esterase,Urine Negative (Negative); Mucus,Urine Rare /hpf; Nitrite,Urine Negative (Negative); Protein,Urine Trace (Negative); RBC,Urine 3 /hpf (0-5); Specific Gravity,Urine 1.021 (1.001-1.035); Squamous Epithelial Cell,Urine 7 /hpf (0-4); WBC,Urine 2 /hpf (0-5)
[2021-05-04] MEDS ORDERED: SODIUM CHLORIDE 0.9% 1,000 ML IV ONE (01:57)
--- NOTE | 2021-05-04 02:01 | P.HPIM ---
History of Present Illness H&P Date: 05/03/21 Patient is 60-year-old female with a PMH of type II DM, hyperlipidemia, and COPD who presents to the emergency room with complaints of shortness of breath. Of note, the patient was recently admitted on 04/15/21 for similar symptoms and was discharged the following day. The patient now reports that she has a persistent nonproductive cough, along with wheezing and shortness of breath with decreased excess tolerance. She reports that she was seen at urgent care center where a chest x-ray that showed bilateral pneumonia. The patient however denied fever, chills, chest pain. Denied nausea, vomiting, abdominal pain, diarrhea. In the emergency room, chest x-ray was unremarkable. EKG showing sinus rhythm with left axis deviation at 95 bpm. Laboratory evaluation was remarkable for a lactic acid of 2.1, glucose 156. Review of systems: Pertinent positives and negatives as discussed in HPI, a complete review of systems was performed and all other systems are negative. Physical examination: General: non toxic, no distress, appears at stated age, obese Derm: no unusual rashes/lesions no unusual ecchymoses, warm, dry Head: atraumatic, normocephalic, symmetric Eyes: EOMI, no lid lag, anicteric sclera, pupils equal round reactive to light ENT: Nose and ears atraumatic, no thrush, no pharyngeal erythema Neck: No thyromegaly, no cervical lymphadenopathy, trachea midline, supple Mouth: no lip lesion, mucus membranes moist Cardiovascular: S1S2 reg, no murmur, positive posterior tibial pulse bilateral, no edema, capillary refill less than 2 seconds Lungs: Bilateral wheezing noted, no rhonchi, no rales , no accessory muscle use Abdominal: soft, nontender to palpation, no guarding, no appreciable organomegaly, normal bowel sounds Ext: no gross muscle atrophy, muscle strength 5 out of 5 in all 4 extremities grossly, no contractures, Neuro: CN II-XI grossly intact, light touch intact all 4 extremities, finger to nose within normal limits, Psych: Alert, oriented, appropriate affect Assessment/plan Acute COPD exacerbation -Continue with Solu-Medrol -Symbicort -DuoNeb's -Pulmonary consulted -Supplemental oxygen Lactic acidosis -IV fluids and monitored resolution Chronic conditions: Type II DM, hyperlipidemia -Hold oral hyperglycemic -Check A1c -Continue the resume home meds DVT prophylaxis -Heparin subcu The patient is admitted with an anticipated less than 2 midnight stay for evaluation of acute COPD exacerbation CODE STATUS: Full Code Discussed with: Patient Anticipated discharge date: in am Anticipated discharge place: Home Past Medical History Past Medical History: Asthma, Cancer, COPD, Hyperlipidemia, Myocardial I nfarction ([place]), Seizure Disorder Additional Past Medical History / Comment(s): migraines, colon cancer status post bowel resection without need for chemotherapy ,LAST SEIZUE AUG 30, 2016, [place] EKG 2013 Last Myocardial Infarction Date:: JANUARY2003 PER EKG History of Any Multi-Drug Resistant Organisms: VRE Date of last positivie culture/infection: 08/01/16 MDRO Source:: Abdomen Past Surgical History: Appendectomy, Bowel Resection, Cholecystectomy, Hernia Repair, Tonsillectomy Additional Past Surgical History / Comment(s): COLOSTOMY Past Anesthesia/Blood Transfusion Reactions: Previous Problems w/ Anesthesia Additional Past Anesthesia/Blood Transfusion Reaction / Comment(s): "spinal anesthesia WITH COLON SURGERY- WHEN THE TUBE WAS REMOVED AIR BUBBLE WENT THE BRAIN. SHE WAS TRANSFERED TO ICU BECAUSE OF SEIZURES" AUG 2016" Past Psychological History: Anxiety, Depression Smoking Status: Current every day smoker Past Alcohol Use History: None Reported Past Drug Use History: None Reported - Past Family History Mother Family Medical History: No Reported History Father Family Medical History: COPD, Coronary Artery Disease (CAD) Medications and Allergies Home Medications Medication Instructions Recorded Confirmed Type Ipratropium-Albuterol Nebulize 3 ml INHALATION RT-QID PRN 04/22/19 05/03/21 History [Duoneb 0.5 mg-3 mg/3 ml Soln] Aspirin EC [Ecotrin Low Dose] 81 mg PO DAILY 04/12/21 05/03/21 History Atorvastatin Calcium [Lipitor] 40 mg PO HS 04/12/21 05/03/21 History DULoxetine HCL [Cymbalta] 60 mg PO BID 04/12/21 05/03/21 History Fluticasone Propionate [Flovent 1 puff INHALATION RT-DAILY 04/12/21 05/03/21 His tory Hfa 220 mcg] QUEtiapine [SEROquel] 100 mg PO HS 04/12/21 05/03/21 History Tiotropium 18 Mcg/Puff [Spiriva] 1 cap INHALATION RT-DAILY 04/12/21 05/03/21 History metFORMIN HCL [Glucophage] 500 mg PO BID 04/12/21 05/03/21 History Buta/APAP/Caf/Cod 05-419-00-30 1 cap PO Q4HR PRN 05/03/21 05/03/21 History [Fioricet w/Cod 81-254-33-30MG] guaiFENesin [Mucinex] 600 mg PO Q12HR PRN 05/03/21 05/03/21 History Allergies Allergy/AdvReac Type Severity Reaction Status Date / Time No Known Allergies Allergy Verified 05/03/21 16:29 Physical Exam Vitals: Vital Signs Temp Pulse Pulse Resp BP BP Pulse Ox 05/03/21 20:49 101 H 18 05/03/21 20:40 98.0 F 101 H 18 114/70 92 L 05/03/21 20:00 98.5 F 87 18 109/65 93 L 05/03/21 18:00 76 26 H 118/80 93 L 05/03/21 17:35 90 05/03/21 17:30 82 22 110/80 95 05/03/21 17:25 87 05/03/21 17:02 99 18 110/80 95 05/03/21 17:00 103 H 25 H 104/77 96 05/03/21 16:26 100.5 F H 107 H 89 H 111/76 89 L Intake and Output 05/03/21 05/03/21 05/04/21 14:59 22:59 06:59 Other: # Voids 1 Weight 81.647 kg Results CBC & Chem 7: 05/03/21 17:19 05/03/21 17:19 Labs: Abnormal Lab Results - Last 24 Hours (Table) 05/03/21 05/03/21 05/03/21 Range/Units 17:05 17:19 17:19 Sodium 135 L (137-145) mmol/L Glucose 156 H (74-99) mg/dL Plasma Lactic Acid Nadir 2.1 H* (0.7-2.0) mmol/L Urine Appearance Cloudy H (Clear) Urine Protein Trace H (Negative) Urine Glucose (UA) Trace H (Negative) Ur Squamous Epith Cells 7 H (0-4) /hpf Urine Mucus Rare H (None) /hpf 05/03/21 Range/Units 20:58 Sodium (137-145) mmol/L Glucose (74-99) mg/dL Plasma Lactic Acid Nadir 3.1 H* (0.7-2.0) mmol/L Urine Appearance (Clear) Urine Protein (Negative) Urine Glucose (UA) (Negative) Ur Squamous Epith Cells (0-4) /hpf Urine Mucus (None) /hpf Thrombosis Risk Factor Assmnt - Choose All That Apply Each Factor Represents 1 point: Abnormal pulmonary function (COPD), Acute MS, Age 41-60 years, Obesity (BMI >25) Other Risk Factors: No Other congenital or acquired thrombophilia - If yes, enter type in comment: No Thrombosis Risk Factor Assessment Total Risk Factor Score: 4 Thrombosis Risk Factor Assessment Level: Moderate Risk
[2021-05-04] MEDS: SODIUM CHLORIDE 0.9% 1,000 ML IV SCH ×3 (03:31→21:43)
[2021-05-04] MEDS ORDERED: methylPREDNISolone SOD SUCCI 125 MG/2 ML VIAL IV SCH (08:00)
[2021-05-04] MEDS ORDERED: FLUTICASONE 220 MCG INHALER INHALATION SCH (08:00)
[2021-05-04] MEDS ORDERED: NON FORMULARY DRUG (Tiotropium 18 Mcg/Puff 1 PUFF Each) INHALATION SCH (08:00)
[2021-05-04 08:16] LABS: Glucose,Whole Blood 202 mg/dL (75-99)
[2021-05-04] MEDS: IPRATROPIUM-ALBUTEROL 3 ML NEB INHALATION PRN ×5 (08:45→22:35)
[2021-05-04] MEDS ORDERED: predniSONE 20 MG TAB PO SCH (09:00)
[2021-05-04] MEDS: ASPIRIN 81 MG PO SCH (09:10)
[2021-05-04] MEDS: BUTA/APAP/CAF/COD 50-325-40-30 CAP PO PRN ×2 (09:10→15:37)
[2021-05-04] MEDS: HEPARIN SODIUM,PORCINE/PF 5,000 UNIT/0.5 ML SYRINGE SQ SCH ×3 (09:19→21:43)
[2021-05-04] MEDS: INSULIN ASPART (NovoLOG) 100 UNIT/ML VIAL SQ SCH ×4 (09:20→21:42)
[2021-05-04] MEDS: methylPREDNISolone SOD SUCCI 125 MG/2 ML VIAL IV SCH ×2 (11:46→17:44)
--- NOTE | 2021-05-04 11:58 | P.PN ---
Subjective Patient was seen and evaluated by me today. She is having audible wheezing across the room. Her shortness of breath is not improved compared to yesterday. Objective - Vital Signs Vital signs: Vital Signs Temp 97.7 F 05/04/21 07:00 Pulse 92 05/04/21 08:57 Resp 18 05/04/21 08:00 BP 120/66 05/04/21 07:00 Pulse Ox 93 L 05/04/21 07:00 Intake & Output 05/03/21 05/04/21 05/04/21 18:59 06:59 18:59 Intake Total 300 Balance 300 Weight 81.647 kg 81.647 kg Intake: Oral 300 Other: # Voids 2 - Exam General: The patient is awake and alert, in no distress Eye: there is normal conjunctiva bilaterally. Neck: The neck is supple, there is no JVD. Cardiovascular: Normal S1-S2, no S3-S4, no murmurs. Respiratory: Lungs with diffuse wheezing all over the chest Gastrointestinal: Abdomen is soft, nontender Musculoskeletal: There is no pedal edema. Neurological:. Speech is normal. Skin: Skin is warm and dry - Labs CBC & Chem 7: 05/03/21 17:19 05/03/21 17:19 Labs: Abnormal Lab Results - Last 24 Hours (Table) 05/03/21 05/03/21 05/03/21 Range/Units 17:05 17:19 17:19 Sodium 135 L (137-145) mmol/L Glucose 156 H (74-99) mg/dL POC Glucose (mg/dL) (75-99) mg/dL Plasma Lactic Acid Nadir 2.1 H* (0.7-2.0) mmol/L Urine Appearance Cloudy H (Clear) Urine Protein Trace H (Negative) Urine Glucose (UA) Trace H (Negative) Ur Squamous Epith Cells 7 H (0-4) /hpf Urine Mucus Rare H (None) /hpf 05/03/21 05/04/21 05/04/21 Range/Units 20:58 00:13 03:37 Sodium (137-145) mmol/L Glucose (74-99) mg/dL POC Glucose (mg/dL) (75-99) mg/dL Plasma Lactic Acid Nadir 3.1 H* 2.7 H* 2.2 H* (0.7-2.0) mmol/L Urine Appearance (Clear) Urine Protein (Negative) Urine Glucose (UA) (Negative) Ur Squamous Epith Cells (0-4) /hpf Urine Mucus (None) /hpf 05/04/21 Range/Units 08:14 Sodium (137-145) mmol/L Glucose (74-99) mg/dL POC Glucose (mg/dL) 202 H (75-99) mg/dL Plasma Lactic Acid Nadir (0.7-2.0) mmol/L Urine Appearance (Clear) Urine Protein (Negative) Urine Glucose (UA) (Negative) Ur Squamous Epith Cells (0-4) /hpf Urine Mucus (None) /hpf Assessment and Plan Assessment: Patient is 60-year-old female with a PMH of type II DM, hyperlipidemia, and COPD who presents to the emergency room with complaints of shortness of breath. Of note, the patient was recently admitted on 04/15/21 for similar symptoms and was discharged the following day. The patient now reports that she has a persistent nonproductive cough, along with wheezing and shortness of breath with decreased excess tolerance. She reports that she was seen at urgent care center where a chest x-ray that showed bilateral pneumonia. The patient however denied fever, chills, chest pain. Denied nausea, vomiting, abdominal pain, diarrhea. In the emergency room, chest x-ray was unremarkable. EKG showing sinus rhythm with left axis deviation at 95 bpm. Laboratory evaluation was remarkable for a lactic acid of 2.1, glucose 156. Assessment/plan Acute COPD exacerbation -Continue with Solu-Medrol -Symbicort -DuoNeb's -Pulmonary consulted -Supplemental oxygen Lactic acidosis -Resolved with IV fluid hydration Chronic conditions: Type II DM, hyperlipidemia -Hold oral hyperglycemic -Check A1c -Continue the resume home meds DVT prophylaxis -Heparin subcu Today, I reviewed her medication list and lab work results. At the salon burs as needed. Tylenol for headache. Continue current management otherwise. CODE STATUS: Full Code Discussed with: Patient
[2021-05-04 12:19] LABS: Glucose,Whole Blood 380 mg/dL (75-99)
[2021-05-04] MEDS: ACETAMINOPHEN TAB 325 MG TAB PO PRN (12:58)
[2021-05-04] MEDS: DOXYCYCLINE 100 MG CAP PO SCH ×2 (12:59→21:42)
--- NOTE | 2021-05-04 14:20 | P.CNPUL ---
History of Present Illness Consult date: 05/04/21 Requesting physician: Keysha Baltazar Reason for consult: dyspnea, COPD Chief complaint: Shortness of breath, cough, congestion History of present illness: This is a pleasant 60-year-old female patient who appears older than stated age with a history of diabetes mellitus, hyperlipidemia, chronic and ongoing tobacco dependence, chronic obstructive pulmonary disease. He was recently discharged for COPD exacerbation. 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 She is on DuoNeb inhalations, Flovent, Spiriva in the outpatient setting. She presented to the emergency room again yesterday after being seen at urgent care with complaints of worsening shortness of breath, cough and congestion. She was told she has bilateral pneumonia. Chest x-ray does not reveal any evidence of pneumonia. She was hypoxic at 89% on room air. She is at 93% on 3 L/m per nasal cannula. White count 8.1. Hemoglobin 14.3. INR 0.9. Sodium 135. Potassium 4.0. Creatinine 0.54. Initial lactic acid 3.1. Currently 1.5. Blood glucose 156. She's been initiated on Flovent, IV Solu-Medrol, DuoNeb i nhalations. She is seen today in consultation on the regular medical floor. She is up ambulating in her room. She is quite dyspneic with minimal exertion. Dyspneic on conversation. She is afebrile. Hemodynamically stable Review of Systems REVIEW OF SYSTEMS: CONSTITUTIONAL: Denies any recent significant weight loss or weight gain. EYES: Denies change in vision. EARS, NOSE, MOUTH, THROAT: Denies headaches, denies sore throat. CARDIOVASCULAR: Denies chest pain, palpitations or syncopal episodes. RESPIRATORY: Positive for shortness of breath, cough, congestion no hemoptysis. GASTROINTESTINAL: Denies change in appetite, denies abdominal pain GENITOURINARY: Denies hematuria, denies infections. MUSKULOSKELETAL: Denies pain, denies swelling. INTEGUMENTARY: Denies rash, denies eczema. NEUROLOGICAL: Denies recent memory loss, no recent seizure activity. PSYCHIATRIC: Denies anxiety, denies depression. HEMATOLOGIC/LYMPHATIC: Denies anemia, denies enlarged lymph nodes. Past Medical History Past Medical History: Asthma, Cancer, COPD, Hyperlipidemia, Myocardial Infarction ([place]), Seizure Disorder Additional Past Medical History / Comment(s): migraines, colon cancer status post bowel resection without need for chemotherapy ,LAST SEIZUE AUG 30, 2016, [place] EKG 2013 Last Myocardial Infarction Date:: JANUARY2003 PER EKG History of Any Multi-Drug Resistant Organisms: VRE Date of last positivie culture/infection: 08/01/16 MDRO Source:: Abdomen Past Surgical History: Appendectomy, Bowel Resection, Cholecystectomy, Hernia Repair, Tonsillectomy Additional Past Surgical History / Comment(s): COLOSTOMY Past Anesthesia/Blood Transfusion Reactions: Previous Problems w/ Anesthesia Additional Past Anesthesia/Blood Transfusion Reaction / Comment(s): "spinal anesthesia WITH COLON SURGERY- WHEN THE TUBE WAS REMOVED AIR BUBBLE WENT THE BRAIN. SHE WAS TRANSFERED TO ICU BECAUSE OF SEIZURES" AUG 2016" Past Psychological History: Anxiety, Depression Smoking Status: Current every day smoker Past Alcohol Use History: None Reported Past Drug Use History: None Reported - Past Family History Mother Family Medical History: No Reported History Father Family Medical History: COPD, Coronary Artery Disease (CAD) Medications and Allergies Home Medications Medication Instructions Recorded Confirmed Type Ipratropium-Albuterol Nebulize 3 ml INHALATION RT-QID PRN 04/22/19 05/03/21 History [Duoneb 0.5 mg-3 mg/3 ml Soln] Aspirin EC [Ecotrin Low Dose] 81 mg PO DAILY 04/12/21 05/03/21 History Atorvastatin Calcium [Lipitor] 40 mg PO HS 04/12/21 05/03/21 History DULoxetine HCL [Cymbalta] 60 mg PO BID 04/12/21 05/03/21 History Fluticasone Propionate [Flovent 1 puff INHALATION RT-DAILY 04/12/21 05/03/21 History Hfa 220 mcg] QUEtiapine [SEROquel] 100 mg PO HS 04/12/21 05/03/21 History Tiotropium 18 Mcg/Puff [Spiriva] 1 cap INHALATION RT-DAILY 04/12/21 05/03/21 History metFORMIN HCL [Glucophage] 500 mg PO BID 04/12/21 05/03/21 History Buta/APAP/Caf/Cod 29-958-68-30 1 cap PO Q4HR PRN 05/03/21 05/03/21 History [Fioricet w/Cod 28-042-96-30MG] guaiFENesin [Mucinex] 600 mg PO Q12HR PRN 05/03/21 05/03/21 History Allergies Allergy/AdvReac Type Severity Reaction Status Date / Time No Known Allergies Allergy Verified 05/03/21 16:29 Physical Exam Vitals: Vital Signs Temp Pulse Pulse Resp BP BP Pulse Ox 05/04/21 13:38 98 18 05/04/21 12:13 88 05/04/21 11:59 88 05/04/21 08:57 92 05/04/21 08:45 92 05/04/21 08:00 98 18 05/04/21 07:00 97.7 F 98 18 120/66 93 L 05/04/21 03:22 97.8 F 80 18 106/71 91 L 05/03/21 20:49 101 H 18 05/03/21 20:40 98.0 F 101 H 18 114/70 92 L 05/03/21 20:00 98.5 F 87 18 109/65 93 L 05/03/21 18:00 76 26 H 118/80 93 L 05/03/21 17:35 90 05/03/21 17:30 82 22 110/80 95 05/03/21 17:25 87 05/03/21 17:02 99 18 110/80 95 05/03/21 17:00 103 H 25 H 104/77 96 05/03/21 16:26 100.5 F H 107 H 89 H 111/76 89 L Intake and Output 05/03/21 05/04/21 05/04/21 22:59 06:59 14:59 Intake Total 300 Balance 300 Intake: Oral 300 Other: # Voids 1 2 2 Weight 81.647 kg GENERAL EXAM: Alert, obese, 60 of female patient, appears older than stated age, on 3 L nasal cannula, fairly comfortable in no apparent distress. HEAD: Normocephalic. EYES: Normal reaction of pupils, equal size. NOSE: Clear with pink turbinates. THROAT: No erythema or exudates. NECK: No masses, no JVD. CHEST: No chest wall deformity. LUNGS: Equal air entry with bilateral scattered rhonchi, end expiratory wheeze, diminished CVS: S1 and S2 normal with no audible murmur, regular rhythm. ABDOMEN: No hepatosplenomegaly, normal bowel sounds, no guarding or rigidity. SPINE: No scoliosis or deformity SKIN: No rashes CENTRAL NERVOUS SYSTEM: No focal deficits, tone is normal in all 4 extremities. EXTREMITIES: There is no peripheral edema. No clubbing, no cyanosis. Peripheral pulses are intact.s Results - Laboratory Findings CBC and BMP: 05/03/21 17:19 05/03/21 17:19 PT/INR, D-dimer PT 9.9 sec (9.0-12.0) 05/03/21 17:19 INR 0.9 (<1.2) 05/03/21 17:19 Abnormal lab findings: Abnormal Labs 05/03/21 05/03/21 05/03/21 17:05 17:19 17:19 Sodium 135 L Glucose 156 H POC Glucose (mg/dL) Plasma Lactic Acid Nadir 2.1 H* Urine Appearance Cloudy H Urine Protein Trace H Urine Glucose (UA) Trace H Ur Squamous Epith Cells 7 H Urine Mucus Rare H 05/03/21 05/04/21 05/04/21 20:58 00:13 03:37 Sodium Glucose POC Glucose (mg/dL) Plasma Lactic Acid Nadir 3.1 H* 2.7 H* 2.2 H* Urine Appearance Urine Protein Urine Glucose (UA) Ur Squamous Epith Cells Urine Mucus 05/04/21 05/04/21 08:14 12:17 Sodium Glucose POC Glucose (mg/dL) 202 H 380 H Plasma Lactic Acid Nadir Urine Appearance Urine Protein Urine Glucose (UA) Ur Squamous Epith Cells Urine Mucus - Diagnostic Findings Chest x-ray: image reviewed Assessment and Plan Assessment: 1 Acute exacerbation of chronic obstructive pulmonary disease, no clear evidence of pneumonia 2 Chronic and ongoing tobacco dependence 3 Recent admission for COPD exacerbation 4 Obesity 5 Hyperlipidemia 6 History of colon cancer status post resection 7 History of seizures, post spinal anesthesia in 2017 8 History of anxiety/depression Plan: The patient was seen and evaluated by Dr. Elise Chest x-ray and labs reviewed Empiric antibiotics in the form of doxycycline Continue DuoNeb inhalations 4 times a day and when necessary Add Symbicort inhalations twice a day Continue IV Solu-Medrol external 60 milligrams every 6 hours Educated regarding the importance of complete smoking cessation NicoDerm patch will be offered Would benefit from outpatient workup including full PFTs We will continue to follow and make further recommendations based on her clinical status I, the cosigning physician, performed a history & physical examination of the patient. Lungs sounds scattered rhonchi, end expiratory wheeze, diminished. Maintaining good O2 saturations in the 90s on 3 L/m per nasal cannula. I discussed the assessment and plan of care with my nurse practitioner, Liberty Sims. I attest to the above consultation as dictated by her. Time with Patient: Greater than 30
[2021-05-04] MEDS: BENZONATATE 100 MG CAP PO PRN (15:49)
[2021-05-04 16:19] LABS: Glucose,Whole Blood 321 mg/dL (75-99)
[2021-05-04] MEDS ORDERED: KETOROLAC 15 MG/ML 1 ML VIAL IVP STA (16:57)
[2021-05-04] MEDS ORDERED: INSULIN DETEMIR (LEVEMIR) 100 UNIT/ML SYR SQ ONE (17:30)
[2021-05-04 17:38] LABS: Glucose,Whole Blood 280 mg/dL (75-99)
[2021-05-04] MEDS: SYMBICORT 160-4.5 MCG INHALER INHALATION SCH (19:27)
[2021-05-04 20:50] LABS: Glucose,Whole Blood 323 mg/dL (75-99)
[2021-05-04] MEDS: ATORVASTATIN 40 MG TAB PO SCH (21:42)
[2021-05-04] MEDS: QUEtiapine 100 MG TAB PO SCH (21:43)
[2021-05-04] MEDS ORDERED: HYDROcodone/APAP 10-325MG 1 EACH TAB PO ONE (23:40)
[2021-05-05] MEDS: methylPREDNISolone SOD SUCCI 125 MG/2 ML VIAL IV SCH ×5 (00:03→23:55)
[2021-05-05 07:24] LABS: Glucose,Whole Blood 242 mg/dL (75-99)
[2021-05-05] MEDS: BUTA/APAP/CAF/COD 50-325-40-30 CAP PO PRN ×2 (08:40→16:28)
[2021-05-05] MEDS: ACETAMINOPHEN TAB 325 MG TAB PO PRN ×2 (08:41→16:28)
[2021-05-05] MEDS: SYMBICORT 160-4.5 MCG INHALER INHALATION SCH ×2 (08:42→19:52)
[2021-05-05] MEDS: ASPIRIN 81 MG PO SCH (08:42)
[2021-05-05] MEDS: SODIUM CHLORIDE 0.9% 1,000 ML IV SCH (08:42)
[2021-05-05] MEDS: IPRATROPIUM-ALBUTEROL 3 ML NEB INHALATION PRN ×4 (08:42→22:59)
[2021-05-05] MEDS: INSULIN DETEMIR (LEVEMIR) 100 UNIT/ML SYR SQ SCH (08:42)
[2021-05-05] MEDS: INSULIN ASPART (NovoLOG) 100 UNIT/ML VIAL SQ SCH ×5 (08:43→20:47)
[2021-05-05] MEDS: HEPARIN SODIUM,PORCINE/PF 5,000 UNIT/0.5 ML SYRINGE SQ SCH ×3 (08:43→23:55)
[2021-05-05] MEDS: DOXYCYCLINE 100 MG CAP PO SCH ×2 (08:44→20:48)
[2021-05-05] MEDS: BENZONATATE 100 MG CAP PO PRN (10:25)
[2021-05-05] MEDS: HYDROcodone/APAP 5-325MG 1 EACH TAB PO PRN ×2 (11:23→20:52)
[2021-05-05] MEDS: DULoxetine HCL 60 MG CAPSULE.DR PO SCH ×2 (11:23→20:48)
[2021-05-05 12:35] LABS: Glucose,Whole Blood 326 mg/dL (75-99)
--- NOTE | 2021-05-05 14:36 | P.PN ---
Subjective Progress Note Date: 05/05/21 Principal diagnosis: COPD exacerbation This is a pleasant 60-year-old female patient who appears older than stated age with a history of diabetes mellitus, hyperlipidemia, chronic and ongoing tobacco dependence, chronic obstructive pulmonary disease. He was recently discharged for COPD exacerbation. 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 She is on DuoNeb inhalations, Flovent, Spiriva in the outpatient setting. She presented to the emergency room again yesterday after being seen at urgent care with complaints of worsening shortness of breath, cough and congestion. She was told she has bilateral pneumonia. Chest x-ray does not reveal any evidence of pneumonia. She was hypoxic at 89% on room air. She is at 93% on 3 L/m per nasal cannula. White count 8.1. Hemoglobin 14.3. INR 0.9. Sodium 135. Potassium 4.0. Creatinine 0.54. Initial lactic acid 3.1. Currently 1.5. Blood glucose 156. She's been initiated on Flovent, IV Solu-Medrol, DuoNeb in halations. She is seen today in consultation on the regular medical floor. She is up ambulating in her room. She is quite dyspneic with minimal exertion. Dyspneic on conversation. She is afebrile. Hemodynamically stable The patient is seen today 05/05/2021 in follow-up on the regular medical floor. She is currently sitting up in bed. Awake and alert in no acute distress. Still quite bronchospastic and wheezy. Still with dyspnea on minimal exertion. Maintaining O2 saturations in the low 90s on 3 L/m per nasal cannula. Loose nonproductive cough. She is continued on DuoNeb inhalations, Symbicort, IV sign Medrol. She remains on Tessalon Perles. Antibiotics in the form of doxycycl ine. Heparin for DVT prophylaxis. Objective - Vital Signs Vital signs: Vital Signs Temp 97.4 F L 05/05/21 07:00 Pulse 71 05/05/21 13:40 Resp 18 05/05/21 13:40 BP 100/61 05/05/21 07:00 Pulse Ox 91 L 05/05/21 08:43 Intake & Output 05/04/21 05/05/21 05/05/21 18:59 06:59 18:59 Intake Total 300 900 Balance 300 900 Intake: Oral 300 900 Other: # Voids 2 1 4 - Exam GENERAL EXAM: Alert, obese, 60 of female patient, appears older than stated age, on 3 L nasal cannula, fairly comfortable in no apparent distress. HEAD: Normocephalic. EYES: Normal reaction of pupils, equal size. NOSE: Clear with pink turbinates. THROAT: No erythema or exudates. NECK: No masses, no JVD. CHEST: No chest wall deformity. LUNGS: Equal air entry with bilateral scattered rhonchi, end expiratory wheeze, diminished CVS: S1 and S2 normal with no audible murmur, regular rhythm. ABDOMEN: No hepatosplenomegaly, normal bowel sounds, no guarding or rigidity. SPINE: No scoliosis or deformity SKIN: No rashes CENTRAL NERVOUS SYSTEM: No focal deficits, tone is normal in all 4 extremities. EXTREMITIES: There is no peripheral edema. No clubbing, no cyanosis. Peripheral pulses are intact.s - Labs CBC & Chem 7: 05/03/21 17:19 05/03/21 17:19 Labs: Abnormal Lab Results - Last 24 Hours (Table) 05/04/21 05/04/21 05/04/21 Range/Units 16:18 17:36 20:40 POC Glucose (mg/dL) 321 H 280 H 323 H (75-99) mg/dL 05/05/21 05/05/21 Range/Units 07:22 12:34 POC Glucose (mg/dL) 242 H 326 H (75-99) mg/dL Microbiology - Last 24 Hours (Table) 05/03/21 17:19 Blood Culture - Preliminary Blood No Growth after 24 hours 05/03/21 17:19 Blood Culture - Preliminary Blood No Growth after 24 hours Assessment and Plan Assessment: 1 Acute exacerbation of chronic obstructive pulmonary disease, no clear evidence of pneumonia 2 Chronic and ongoing tobacco dependence 3 Recent admission for COPD exacerbation 4 Obesity 5 Hyperlipidemia 6 History of colon cancer status post resection 7 History of seizures, post spinal anesthesia in 2017 8 History of anxiety/depression Plan: The patient was seen and evaluated by Dr. Elise Not quite ready for discharge Continue current treatment plan We will continue to follow I, the cosigning physician, performed a history & physical examination of the patient. Lungs sounds scattered rhonchi, end expiratory wheeze, diminished. Maintaining good O2 saturations in the 90s on 3 L/m per nasal cannula. I discussed the assessment and plan of care with my nurse practitioner, Liberty Sims. I attest to the above note as dictated by her.
--- NOTE | 2021-05-05 15:28 | P.PN ---
Subjective Patient is not feeling any better compared to yesterday. Her lungs remain tight with diffuse wheezing. Objective - Vital Signs Vital signs: Vital Signs Temp 97.6 F 05/05/21 15:00 Pulse 76 05/05/21 15:00 Resp 18 05/05/21 15:00 BP 98/65 05/05/21 15:00 Pulse Ox 91 L 05/05/21 15:00 Intake & Output 05/04/21 05/05/21 05/05/21 18:59 06:59 18:59 Intake Total 300 900 Balance 300 900 Intake: Oral 300 900 Other: # Voids 2 1 4 - Exam General: The patient is awake and alert, in no distress Eye: there is normal conjunctiva bilaterally. Neck: The neck is supple, there is no JVD. Cardiovascular: Normal S1-S2, no S3-S4, no murmurs. Respiratory: Lungs with diffuse wheezing all over the chest Gastrointestinal: Abdomen is soft, nontender Musculoskeletal: There is no pedal edema. Neurological:. Speech is normal. Skin: Skin is warm and dry - Labs CBC & Chem 7: 05/03/21 17:19 05/03/21 17:19 Labs: Abnormal Lab Results - Last 24 Hours (Table) 05/04/21 05/04/21 05/04/21 Range/Units 16:18 17:36 20:40 POC Glucose (mg/dL) 321 H 280 H 323 H (75-99) mg/dL 05/05/21 05/05/21 Range/Units 07:22 12:34 POC Glucose (mg/dL) 242 H 326 H (75-99) mg/dL Microbiology - Last 24 Hours (Table) 05/03/21 17:19 Blood Culture - Preliminary Blood No Growth after 24 hours 05/03/21 17:19 Blood Culture - Preliminary Blood No Growth after 24 hours Assessment and Plan Assessment: Patient is 60-year-old female with a PMH of type II DM, hyperlipidemia, and COPD who presents to the emergency room with complaints of shortness of breath. Of note, the patient was recently admitted on 04/15/21 for similar symptoms and was discharged the following day. The patient now reports that she has a persistent nonproductive cough, along with wheezing and shortness of breath with decreased excess tolerance. She reports that she was seen at urgent care center where a chest x-ray that showed bilateral pneumonia. The patient however denied fever, chills, chest pain. Denied nausea, vomiting, abdominal pain, diarrhea. In the emergency room, chest x-ray was unremarkable. EKG showing sinus rhythm with left axis deviation at 95 bpm. Laboratory evaluation was remarkable for a lactic acid of 2.1, glucose 156. Assessment/plan Acute COPD exacerbation -Continue with Solu-Medrol -Symbicort -DuoNeb's -Pulmonary consulted -Supplemental oxygen Lactic acidosis -Resolved with IV fluid hydration Chronic conditions: Type II DM, hyperlipidemia -Hold oral hyperglycemic -Due to steroid-induced hyperglycemia, patient was started on insulin during this admission -A1c 7.1 -Continue the resume home meds DVT prophylaxis -Heparin subcu Today, I reviewed her medication list and lab work results. Tessalon Perles as needed. Tylenol for headache. Continue current management otherwise. CODE STATUS: Full Code Discussed with: Patient
[2021-05-05] MEDS: NICOTINE 14MG/24HR PATCH TRANSDERM SCH (16:34)
[2021-05-05 17:36] LABS: Glucose,Whole Blood 233 mg/dL (75-99)
[2021-05-05 20:22] LABS: Glucose,Whole Blood 337 mg/dL (75-99)
[2021-05-05] MEDS: QUEtiapine 100 MG TAB PO SCH (20:48)
[2021-05-05] MEDS: ATORVASTATIN 40 MG TAB PO SCH (20:48)
[2021-05-06] MEDS: BUTA/APAP/CAF/COD 50-325-40-30 CAP PO PRN ×2 (00:04→22:39)
[2021-05-06] MEDS: methylPREDNISolone SOD SUCCI 125 MG/2 ML VIAL IV SCH ×3 (05:18→18:19)
[2021-05-06 07:36] LABS: Glucose,Whole Blood 209 mg/dL (75-99)
[2021-05-06] MEDS: IPRATROPIUM-ALBUTEROL 3 ML NEB INHALATION PRN ×3 (08:12→19:43)
[2021-05-06] MEDS: SYMBICORT 160-4.5 MCG INHALER INHALATION SCH (08:12)
[2021-05-06] MEDS: HEPARIN SODIUM,PORCINE/PF 5,000 UNIT/0.5 ML SYRINGE SQ SCH ×2 (08:33→18:18)
[2021-05-06] MEDS: ASPIRIN 81 MG PO SCH (08:34)
[2021-05-06] MEDS: DULoxetine HCL 60 MG CAPSULE.DR PO SCH ×2 (08:34→22:39)
[2021-05-06] MEDS: HYDROcodone/APAP 5-325MG 1 EACH TAB PO PRN ×3 (08:34→22:40)
[2021-05-06] MEDS: NICOTINE 14MG/24HR PATCH TRANSDERM SCH (08:35)
[2021-05-06] MEDS: INSULIN DETEMIR (LEVEMIR) 100 UNIT/ML SYR SQ SCH (08:35)
[2021-05-06] MEDS: DOXYCYCLINE 100 MG CAP PO SCH ×2 (08:35→20:45)
[2021-05-06] MEDS: INSULIN ASPART (NovoLOG) 100 UNIT/ML VIAL SQ SCH ×7 (08:36→22:40)
--- NOTE | 2021-05-06 09:26 | XR ---
EXAMINATION TYPE: XR chest 1V DATE OF EXAM: 05/06/2021 COMPARISON: Chest x-ray 05/03/2021, CT 09/16/2019 HISTORY: Shortness of breath TECHNIQUE: Single frontal view of the chest is obtained. FINDINGS: Some minimal subsegmental basilar atelectatic changes suspected. Aorta is dense. Prominent lung volume could be indicative of underlying COPD. Questionable nodular density right lung base. No pleural pericardial effusion. Cardiac mediastinal silhouette is stable. IMPRESSION: Some probable atelectasis, right lower lobe lung nodule, patient is due for follow-up est CT, underlying emphysema
--- NOTE | 2021-05-06 12:14 | P.PN ---
Subjective Patient's overall respiratory status is unchanged compared to yesterday. She is having diffuse wheezing across the room. She reported that her shortness of breath is not improving. Objective - Vital Signs Vital signs: Vital Signs Temp 97.6 F 05/06/21 07:25 Pulse 100 05/06/21 08:25 Resp 22 05/06/21 08:00 BP 126/72 05/06/21 07:25 Pulse Ox 94 L 05/06/21 07:25 Intake & Output 05/05/21 05/06/21 05/06/21 18:59 06:59 18:59 Intake Total 900 836 Balance 900 836 Intake: Oral 900 836 Other: # Voids 4 5 - Exam General: The patient is awake and alert, in no distress Eye: there is normal conjunctiva bilaterally. Neck: The neck is supple, there is no JVD. Cardiovascular: Normal S1-S2, no S3-S4, no murmurs. Respiratory: Lungs with diffuse wheezing all over the chest Gastrointestinal: Abdomen is soft, nontender Musculoskeletal: There is no pedal edema. Neurological:. Speech is normal. Skin: Skin is warm and dry - Labs CBC & Chem 7: 05/03/21 17:19 05/03/21 17:19 Labs: Abnormal Lab Results - Last 24 Hours (Table) 05/05/21 05/05/21 05/05/21 Range/Units 12:34 17:35 20:20 POC Glucose (mg/dL) 326 H 233 H 337 H (75-99) mg/dL 05/06/21 Range/Units 07:35 POC Glucose (mg/dL) 209 H (75-99) mg/dL Microbiology - Last 24 Hours (Table) 05/03/21 17:19 Blood Culture - Preliminary Blood No Growth after 48 hours 05/03/21 17:19 Blood Culture - Preliminary Blood No Growth after 48 hours Assessment and Plan Assessment: Patient is 60-year-old female with a PMH of type II DM, hyperlipidemia, and COPD who presents to the emergency room with complaints of shortness of breath. Of note, the patient was recently admitted on 04/15/21 for similar symptoms and was discharged the following day. The patient now reports that she has a persistent nonproductive cough, along with wheezing and shortness of breath with decreased excess tolerance. She reports that she was seen at urgent care center where a chest x-ray that showed bilateral pneumonia. The patient however denied fever, chills, chest pain. Denied nausea, vomiting, abdominal pain, diarrhea. In the emergency room, chest x-ray was unremarkable. EKG showing sinus rhythm with left axis deviation at 95 bpm. Laboratory evaluation was remarkable for a lactic acid of 2.1, glucose 156. Assessment/plan Acute COPD exacerbation Right lower lobe lung nodule noted on x-ray -Continue with Solu-Medrol, decrease dose today to 40 mg every 8 hours -Symbicort -DuoNeb's -Pulmonary consulted -Supplemental oxygen -May consider computed tomography scan awaiting pulmonary evaluation Lactic acidosis -Resolved with IV fluid hydration Chronic conditions: Type II DM, hyperlipidemia -Hold oral hyperglycemic -Due to steroid-induced hyperglycemia, patient was started on insulin during this admission -A1c 7.1 -Continue the resume home meds DVT prophylaxis -Heparin subcu Today, I reviewed her medication list and lab work results. Tessalon Perles as needed. Tylenol for headache. Continue current management otherwise. CODE STATUS: Full Code Discussed with: Patient
[2021-05-06 12:39] LABS: Glucose,Whole Blood 314 mg/dL (75-99)
[2021-05-06 13:23] LABS: African American GFR (CKD) >90 (>60 ml/min/1.73 sqM); Anion Gap 6 mmol/L; Blood Urea Nitrogen 28 mg/dL (7-17); Calcium 9.1 mg/dL (8.4-10.2); Carbon Dioxide 25 mmol/L (22-30); Chloride 101 mmol/L (98-107); Glucose 331 mg/dL (74-99); Non-African American GFR(CKD) 87 (>60 ml/min/1.73 sqM); Potassium 4.6 mmol/L (3.5-5.1); Sodium 132 mmol/L (137-145)
[2021-05-06] MEDS: ACETAMINOPHEN TAB 325 MG TAB PO PRN (13:58)
--- NOTE | 2021-05-06 14:57 | P.PN ---
Subjective Progress Note Date: 05/06/21 Principal diagnosis: COPD exacerbation. COPD exacerbation This is a pleasant 60-year-old female patient who appears older than stated age with a history of diabetes mellitus, hyperlipidemia, chronic and ongoing tobacco dependence, chronic obstructive pulmonary disease. He was recently discharged for COPD exacerbation. She has not been seen by a brick washer recently. She is on DuoNeb inhalations, Flovent, Spiriva in the outpatient setting. She presented to the emergency room again yesterday after being seen at urgent care with complaints of worsening shortness of breath, cough and congestion. She was told she has bilateral pneumonia. Chest x-ray does not reveal any evidence of pneumonia. She was hypoxic at 89% on room air. She is at 93% on 3 L/m per nasal cannula. White count 8.1. Hemoglobin 14.3. INR 0.9. Sodium 135. Potassium 4.0. Creatinine 0.54. Initial lactic acid 3.1. Currently 1.5. Blood glucose 156. She's been initiated on Flovent, IV Solu-Medrol, DuoNeb inhalations. She is seen today in consultation on the regular medical floor. She is up ambulating in her room. She is quite dyspneic with minimal exertion. Dyspneic on conversation. She is afebrile. Hemodynamically stable The patient is seen today 05/05/2021 in follow-up on the regular medical floor. She is currently sitting up in bed. Awake and alert in no acute distress. Still quite bronchospastic and wheezy. Still with dyspnea on minimal exertion. Maintaining O2 saturations in the low 90s on 3 L/m per nasal cannula. Loose nonproductive cough. She is continued on DuoNeb inhalations, Symbicort, IV sign Medrol. She remains on Tessalon Perles. Antibiotics in the form of doxycycline. Heparin for DVT prophylaxis. Progress note dated 05/06/2021. 60-year-old female with a history of underlying COPD. The patient also has a history of diabetes, hyperlipidemia, ongoing tobacco use with nicotine dependence, and of course COPD. She has not been seen by a brick washer in the past. Today, she was very short of breath. She had audible wheezing. She was quite tachypnea. The patient was seen in consultation 2 days ago. Sodium 132, potassium 4.6, chlorides 101, CO2 25, anion gap 6, BUN 28, creatinine 0.75. Chest x-ray from today shows bibasilar atelectasis, and a small pulmonary nodule, right lower lobe. Objective - Vital Signs Vital signs: Vital Signs Temp 97.6 F 05/06/21 07:25 Pulse 63 05/06/21 13:52 Resp 22 05/06/21 13:52 BP 126/72 05/06/21 07:25 Pulse Ox 95 05/06/21 12:37 Intake & Output 05/05/21 05/06/21 05/06/21 18:59 06:59 18:59 Intake Total 900 1436 Balance 900 1436 Intake: Oral 900 1436 Other: # Voids 4 5 4 - Exam Oriented 3, audible wheezing, very tachypnea. There is conversational dyspnea. HEENT examination is grossly unremarkable. Neck supple. Full range of motion. No adenopathy thyromegaly or neck vein distention. Cardiovascular examination reveals regular rhythm rate. S1-S2 normal. No S3 or S4. No discernible murmur noted. Heart sounds very distant. Heart rate 102 bpm. Lungs reveal inspiratory and expiratory wheezes as well as inspiratory and expiratory rhonchi. Breath sounds around the course. No crackles. Breath sounds are equal bilaterally. 3 L saturation 95%. Abdomen soft bowel sounds are heard. No masses or tenderness. Extremities are intact. No cyanosis clubbing or edema. Skin is without rash or lesion. Neurologic examination is brief but nonfocal. - Labs CBC & Chem 7: 05/03/21 17:19 05/06/21 12:39 Labs: Abnormal Lab Results - Last 24 Hours (Table) 05/05/21 05/05/21 05/06/21 Range/Units 17:35 20:20 07:35 Sodium (137-145) mmol/L BUN (7-17) mg/dL Glucose (74-99) mg/dL POC Glucose (mg/dL) 233 H 337 H 209 H (75-99) mg/dL 05/06/21 05/06/21 Range/Units 12:37 12:39 Sodium 132 L (137-145) mmol/L BUN 28 H (7-17) mg/dL Glucose 331 H (74-99) mg/dL POC Glucose (mg/dL) 314 H (75-99) mg/dL Microbiology - Last 24 Hours (Table) 05/03/21 17:19 Blood Culture - Preliminary Blood No Growth after 48 hours 05/03/21 17:19 Blood Culture - Preliminary Blood No Growth after 48 hours Assessment and Plan Assessment: Acute exacerbation of COPD, without evidence of pneumonia. Chronic and ongoing tobacco dependence. Recent admission for COPD exacerbation. Obesity. Hyperlipidemia. History of colon cancer, status post resection. History of seizure, status post spinal anesthesia, 2017. History of anxiety/depression. Pulmonary nodule, right lower lobe. Plan: Plan dated 05/06/2021. The patient's medications are reviewed. We'll discontinue the Symbicort in favor of Pulmicort 1 mg mixed with formoterol 20 g. Also, we'll continue Solu-Medrol at higher doses. Additional recommendations and suggestions are forthcoming. Prognosis is guarded. We will continue to follow the patient and make recommendations where appropriate. Time with Patient: Less than 30
[2021-05-06] MEDS ORDERED: methylPREDNISolone SOD SUCCI 40 MG/ML 1 ML VIAL IV SCH (16:00)
[2021-05-06 17:25] LABS: Glucose,Whole Blood 199 mg/dL (75-99)
[2021-05-06] MEDS: BUDESONIDE 1 MG/2 ML NEBU INHALATION SCH (19:43)
[2021-05-06] MEDS: FORMOTEROL FUMARATE 20 MCG/2 ML NEBU INHALATION SCH (20:03)
[2021-05-06 20:33] LABS: Glucose,Whole Blood 198 mg/dL (75-99)
[2021-05-06] MEDS: ATORVASTATIN 40 MG TAB PO SCH (20:46)
[2021-05-06] MEDS: QUEtiapine 100 MG TAB PO SCH (20:46)
[2021-05-07] MEDS: methylPREDNISolone SOD SUCCI 125 MG/2 ML VIAL IV SCH ×4 (00:55→18:33)
[2021-05-07] MEDS: HEPARIN SODIUM,PORCINE/PF 5,000 UNIT/0.5 ML SYRINGE SQ SCH ×4 (01:06→21:44)
[2021-05-07 07:13] LABS: Glucose,Whole Blood 253 mg/dL (75-99)
[2021-05-07] MEDS: BUDESONIDE 1 MG/2 ML NEBU INHALATION SCH ×2 (07:39→21:11)
[2021-05-07] MEDS: IPRATROPIUM-ALBUTEROL 3 ML NEB INHALATION PRN ×3 (07:39→21:11)
[2021-05-07] MEDS: FORMOTEROL FUMARATE 20 MCG/2 ML NEBU INHALATION SCH ×2 (07:39→21:10)
[2021-05-07] MEDS: HYDROcodone/APAP 5-325MG 1 EACH TAB PO PRN ×2 (09:01→16:54)
[2021-05-07] MEDS: INSULIN DETEMIR (LEVEMIR) 100 UNIT/ML SYR SQ SCH (09:02)
[2021-05-07] MEDS: DULoxetine HCL 60 MG CAPSULE.DR PO SCH ×2 (09:02→20:26)
[2021-05-07] MEDS: ASPIRIN 81 MG PO SCH (09:02)
[2021-05-07] MEDS: DOXYCYCLINE 100 MG CAP PO SCH ×2 (09:03→20:26)
[2021-05-07] MEDS: NICOTINE 14MG/24HR PATCH TRANSDERM SCH (09:03)
[2021-05-07] MEDS: INSULIN ASPART (NovoLOG) 100 UNIT/ML VIAL SQ SCH ×7 (09:05→20:26)
--- NOTE | 2021-05-07 11:07 | CDI ---
Documentation Clarification Form Date: 05/07/2021 10:30:11 AM From: Phuong Alvarado RN CCDS Admit Date: 05/06/2021 08:42:00 AM Patient Name: Lida Christianson Visit Number: [id number] Discharge Date: ATTENTION: The Clinical Documentation Specialists (CDI) and [facility] Coding Staff appreciate your assistance in clarifying documentation. Please respond to the clarification below the line at the bottom and electronically sign. The CDI & [facility] Coding staff will review the response and follow-up if needed. Please note: Queries are made part of the Legal Health Record. If you have any questions, please contact the author of this message via ITS. Vikki Bhatti MD Your patient has shortness of breath, wheezing, cough and congestion, hypoxic at 87% to 89% on room air, does not currently use home oxygen. ED Note, 05/03. Based on this information and the findings below, is there an additional diagnosis that is clinically appropriate for this patient? History/Risk Factors: 60-year-old female presented to the ED with shortness of breath recently admitted with COPD exacerbation. Was sent in by urgent care for Chest xray showing bilateral pneumonia. Medical History: DM2, COPD and Asthma. H&P, 05/03. Tobacco use: Chronic ongoing tobacco dependence. Home oxygen: No Clinical Indicators: Vital signs: 05/03 B/P 111/76, HR 107, Temp 100.5 F, SpO2 89% room air. Pulse oximetry: 05/03 17:00 SpO2 96% 2L nc 05/03 20:40 SpO2 92% 3L nc 05/04 20:00 SpO2 90% ra 05/05 02:22 SpO2 88% 3L nc 05/05 07:00 SpO2 91% 3L nc 05/06 02:07 SpO2 94% 3L nc 05/07 07:40 SpO2 92% 2L nc Lung/Breathing assessment: Medicine progress note 05/06 Lungs with diffuse wheezing all over the chest. Treatment: 05/03 - SoluMedrol 125mg Ivp x 1, 05/04 05/04 Solumedrol 60mg IV Q8HR, 05/04 05/06 Solumedrol 60mg IV Q6HR, 05/06 to current Solumedrol 60mg IV Q6HR. Breathing tx: 05/03 -05/04 Ventolin Nebulized Inhalation 2.5mg; 05/03 x 1 Albuterol/Ipratropium 0.5mg 3mg/ 3ml Inhalation, 05/03 current Albuterol/Ipratropium 0.5mg 3mg/ 3ml Inhalation. 05/04 05/06 Symbicort 160 4.5 Mcg Inhaler, 05/06 to current Pulmicort 1mg Inhalation.,05/06 to current Perforomist 20mcg Inhalation. Oxygen via nasal cannula 05/03 to current 2-3L. Is there an additional diagnosis that is clinically appropriate for this patient? [ X ] Acute Hypoxic Respiratory Failure (pO2 <60 mm Hg or SpO2 <91% on room air) [ ] Acute Respiratory Distress [ ] Other Diagnosis, please specify [ ] Unable to determine (Template Last Revised: September 2020) MTDD
[2021-05-07 12:08] LABS: Glucose,Whole Blood 356 mg/dL (75-99)
--- NOTE | 2021-05-07 12:40 | P.PN ---
Subjective Progress Note Date: 05/07/21 Principal diagnosis: COPD exacerbation. COPD exacerbation This is a pleasant 60-year-old female patient who appears older than stated age with a history of diabetes mellitus, hyperlipidemia, chronic and ongoing tobacco dependence, chronic obstructive pulmonary disease. He was recently discharged for COPD exacerbation. She has not been seen by a glass furnace tender recently. She is on DuoNeb inhalations, Flovent, Spiriva in the outpatient setting. She presented to the emergency room again yesterday after being seen at urgent care with complaints of worsening shortness of breath, cough and congestion. She was told she has bilateral pneumonia. Chest x-ray does not reveal any evidence of pneumonia. She was hypoxic at 89% on room air. She is at 93% on 3 L/m per nasal cannula. White count 8.1. Hemoglobin 14.3. INR 0.9. Sodium 135. Potassium 4.0. Creatinine 0.54. Initial lactic acid 3.1. Currently 1.5. Blood glucose 156. She's been initiated on Flovent, IV Solu-Medrol, DuoNeb inhalations. She is seen today in consultation on the regular medical floor. She is up ambulating in her room. She is quite dyspneic with minimal exertion. Dyspneic on conversation. She is afebrile. Hemodynamically stable The patient is seen today 05/05/2021 in follow-up on the regular medical floor. She is currently sitting up in bed. Awake and alert in no acute distress. Still quite bronchospastic and wheezy. Still with dyspnea on minimal exertion. Maintaining O2 saturations in the low 90s on 3 L/m per nasal cannula. Loose nonproductive cough. She is continued on DuoNeb inhalations, Symbicort, IV sign Medrol. She remains on Tessalon Perles. Antibiotics in the form of doxycycline. Heparin for DVT prophylaxis. Progress note dated 05/06/2021. 60-year-old female with a history of underlying COPD. The patient also has a history of diabetes, hyperlipidemia, ongoing tobacco use with nicotine dependence, and of course COPD. She has not been seen by a glass furnace tender in the past. Today, she was very short of breath. She had audible wheezing. She was quite tachypnea. The patient was seen in consultation 2 days ago. Sodium 132, potassium 4.6, chlorides 101, CO2 25, anion gap 6, BUN 28, creatinine 0.75. Chest x-ray from today shows bibasilar atelectasis, and a small pulmonary nodule, right lower lobe. Progress note dated 05/07/2021. 60-year-old female, again seen today in room 634. She was admitted with a diagnosis of COPD exacerbation. She was smoking up until the time she came into the hospital. The patient's currently on 3 L nasal cannula, and receiving saline at 10 mL an hour. Yesterday, she was upset because somebody was manipul ating her medication. Anyway, we adjusted the medications yesterday. She is feeling a bit better today, but by no means is ready to be discharged. No new labs today other than a sugar of 356. Chest x-ray shows changes of COPD, some basilar atelectasis, and a very small right lower lobe pulmonary nodule. Objective - Vital Signs Vital signs: Vital Signs Temp 97.9 F 05/07/21 07:00 Pulse 94 05/07/21 11:12 Resp 17 05/07/21 08:00 BP 132/85 05/07/21 07:00 Pulse Ox 92 L 05/07/21 07:40 Intake & Output 05/06/21 05/07/21 05/07/21 18:59 06:59 18:59 Intake Total 1672 472 Output Total 1 Balance 1672 471 Intake: Oral 1672 472 Output: Stool 1 Other: # Voids 4 2 1 - Exam Oriented 3, audible wheezing, very tachypnea. There is conversational dyspnea. HEENT examination is grossly unremarkable. Neck supple. Full range of motion. No adenopathy thyromegaly or neck vein distention. Cardiovascular examination reveals regular rhythm rate. S1-S2 normal. No S3 or S4. No discernible murmur noted. Heart sounds very distant. Heart rate 94 bpm. Lungs reveal inspiratory and expiratory wheezes as well as inspiratory and expiratory rhonchi. Breath sounds around the course. No crackles. Breath sounds are equal bilaterally. 3 L saturation 92-95%. Abdomen soft bowel sounds are heard. No masses or tenderness. Extremities are intact. No cyanosis clubbing or edema. Skin is without rash or lesion. Neurologic examination is brief but nonfocal. - Labs CBC & Chem 7: 05/03/21 17:19 05/06/21 12:39 Labs: Abnormal Lab Results - Last 24 Hours (Table) 05/06/21 05/06/21 05/06/21 Range/Units 12:37 12:39 17:23 Sodium 132 L (137-145) mmol/L BUN 28 H (7-17) mg/dL Glucose 331 H (74-99) mg/dL POC Glucose (mg/dL) 314 H 199 H (75-99) mg/dL 05/06/21 05/07/21 05/07/21 Range/Units 20:28 07:11 12:06 Sodium (137-145) mmol/L BUN (7-17) mg/dL Glucose (74-99) mg/dL POC Glucose (mg/dL) 198 H 253 H 356 H (75-99) mg/dL Microbiology - Last 24 Hours (Table) 05/03/21 17:19 Blood Culture - Preliminary Blood No Growth after 72 hours 05/03/21 17:19 Blood Culture - Preliminary Blood No Growth after 72 hours Assessment and Plan Assessment: Acute exacerbation of COPD, without evidence of pneumonia. Chronic and ongoing tobacco dependence. Recent admission for COPD exacerbation. Obesity. Hyperlipidemia. History of colon cancer, status post resection. History of seizure, status post spinal anesthesia, 2017. History of anxiety/depression. Pulmonary nodule, right lower lobe. Plan: Plan dated 05/06/2021. The patient's medications are reviewed. We'll discontinue the Symbicort in favor of Pulmicort 1 mg mixed with formoterol 20 g. Also, we'll continue Solu- Medrol at higher doses. Additional recommendations and suggestions are forth coming. Prognosis is guarded. We will continue to follow the patient and make recommendations where appropriate. Plan dated 05/07/2021. The patient's Solu-Medrol was increased yesterday, and we discontinued the Symbicort in favor of Pulmicort 1 mg, and formoterol 20 g, twice a day. Clinically, the patient appears to be doing a bit better. We will continue to follow make recommendations. Prognosis is guarded. The patient is counseled about the importance of smoking cessation, once and for all. Time with Patient: Less than 30
[2021-05-07] MEDS: BUTA/APAP/CAF/COD 50-325-40-30 CAP PO PRN ×2 (13:11→20:27)
[2021-05-07 17:09] LABS: Glucose,Whole Blood 249 mg/dL (75-99)
--- NOTE | 2021-05-07 17:12 | P.PN ---
Subjective Patient is feeling slightly better compared to yesterday. She is still having diffuse wheezing all over the chest. Objective - Vital Signs Vital signs: Vital Signs Temp 97.6 F 05/07/21 13:40 Pulse 73 05/07/21 13:40 Resp 26 H 05/07/21 13:40 BP 133/79 05/07/21 13:40 Pulse Ox 97 05/07/21 13:45 Intake & Output 05/06/21 05/07/21 05/07/21 18:59 06:59 18:59 Intake Total 1672 472 Output Total 1 Balance 1672 471 Intake: Oral 1672 472 Output: Stool 1 Other: Voiding Method Toilet # Voids 4 2 1 - Exam General: The patient is awake and alert, in no distress Eye: there is normal conjunctiva bilaterally. Neck: The neck is supple, there is no JVD. Cardiovascular: Normal S1-S2, no S3-S4, no murmurs. Respiratory: Lungs with diffuse wheezing all over the chest Gastrointestinal: Abdomen is soft, nontender Musculoskeletal: There is no pedal edema. Neurological:. Speech is normal. Skin: Skin is warm and dry - Labs CBC & Chem 7: 05/03/21 17:19 05/06/21 12:39 Labs: Abnormal Lab Results - Last 24 Hours (Table) 05/06/21 05/06/21 05/07/21 Range/Units 17:23 20:28 07:11 POC Glucose (mg/dL) 199 H 198 H 253 H (75-99) mg/dL 05/07/21 05/07/21 Range/Units 12:06 17:07 POC Glucose (mg/dL) 356 H 249 H (75-99) mg/dL Microbiology - Last 24 Hours (Table) 05/03/21 17:19 Blood Culture - Preliminary Blood No Growth after 72 hours 05/03/21 17:19 Blood Culture - Preliminary Blood No Growth after 72 hours Assessment and Plan Assessment: Patient is 60-year-old female with a PMH of type II DM, hyperlipidemia, and COPD who presents to the emergency room with complaints of shortness of breath. Of note, the patient was recently admitted on 04/15/21 for similar symptoms and was discharged the following day. The patient now reports that she has a persistent nonproductive cough, along with wheezing and shortness of breath with decreased excess tolerance. She reports that she was seen at urgent care center where a chest x-ray that showed bilateral pneumonia. The patient however denied fever, chills, chest pain. Denied nausea, vomiting, abdominal pain, diarrhea. In the emergency room, chest x-ray was unremarkable. EKG showing sinus rhythm with left axis deviation at 95 bpm. Laboratory evaluation was remarkable for a lactic acid of 2.1, glucose 156. Assessment/plan Acute COPD exacerbation Right lower lobe lung nodule noted on x-ray Acute hypoxic respiratory failure -IV Solu-Medrol managed by pulmonary -Symbico -Marjorie's -Pulmonary consulted -Supplemental oxygen -May consider computed tomography scan awaiting pulmonary evaluation Lactic acidosis -Resolved with IV fluid hydration Chronic conditions: Type II DM, hyperlipidemia -Hold oral hyperglycemic -Due to steroid-induced hyperglycemia, patient was started on insulin during this admission -A1c 7.1 -Continue the resume home meds DVT prophylaxis -Heparin subcu Today, I reviewed her medication list and lab work results. Tessalon Perles as needed. Tylenol for headache. Continue current management otherwise. CODE STATUS: Full Code Discussed with: Patient
[2021-05-07 19:51] LABS: Glucose,Whole Blood 349 mg/dL (75-99)
[2021-05-07] MEDS: ATORVASTATIN 40 MG TAB PO SCH (20:26)
[2021-05-07] MEDS: QUEtiapine 100 MG TAB PO SCH (20:26)
[2021-05-08] MEDS: methylPREDNISolone SOD SUCCI 125 MG/2 ML VIAL IV SCH ×5 (00:13→23:04)
[2021-05-08 07:39] LABS: Glucose,Whole Blood 238 mg/dL (75-99)
[2021-05-08] MEDS: FORMOTEROL FUMARATE 20 MCG/2 ML NEBU INHALATION SCH ×2 (08:00→21:27)
[2021-05-08] MEDS: IPRATROPIUM-ALBUTEROL 3 ML NEB INHALATION PRN ×3 (08:00→21:27)
[2021-05-08] MEDS: BUDESONIDE 1 MG/2 ML NEBU INHALATION SCH ×2 (08:00→21:27)
[2021-05-08] MEDS: ASPIRIN 81 MG PO SCH (08:30)
[2021-05-08] MEDS: NICOTINE 14MG/24HR PATCH TRANSDERM SCH (08:30)
[2021-05-08] MEDS: DULoxetine HCL 60 MG CAPSULE.DR PO SCH ×2 (08:30→20:01)
[2021-05-08] MEDS: BUTA/APAP/CAF/COD 50-325-40-30 CAP PO PRN ×3 (08:43→20:11)
[2021-05-08] MEDS: HYDROcodone/APAP 5-325MG 1 EACH TAB PO PRN ×3 (08:44→20:12)
[2021-05-08] MEDS: HEPARIN SODIUM,PORCINE/PF 5,000 UNIT/0.5 ML SYRINGE SQ SCH ×3 (09:02→23:05)
[2021-05-08] MEDS: INSULIN ASPART (NovoLOG) 100 UNIT/ML VIAL SQ SCH ×7 (09:06→20:10)
[2021-05-08] MEDS: DOXYCYCLINE 100 MG CAP PO SCH ×2 (09:07→20:00)
[2021-05-08] MEDS: INSULIN DETEMIR (LEVEMIR) 100 UNIT/ML SYR SQ SCH (09:39)
--- NOTE | 2021-05-08 12:30 | P.PN ---
Subjective Progress Note Date: 05/08/21 Principal diagnosis: COPD exacerbation. COPD exacerbation This is a pleasant 60-year-old female patient who appears older than stated age with a history of diabetes mellitus, hyperlipidemia, chronic and ongoing tobacco dependence, chronic obstructive pulmonary disease. He was recently discharged for COPD exacerbation. She has not been seen by a supervisor grain and yeast plants recently. She is on DuoNeb inhalations, Flovent, Spiriva in the outpatient setting. She presented to the emergency room again yesterday after being seen at urgent care with complaints of worsening shortness of breath, cough and congestion. She was told she has bilateral pneumonia. Chest x-ray does not reveal any evidence of pneumonia. She was hypoxic at 89% on room air. She is at 93% on 3 L/m per nasal cannula. White count 8.1. Hemoglobin 14.3. INR 0.9. Sodium 135. Potassium 4.0. Creatinine 0.54. Initial lactic acid 3.1. Currently 1.5. Blood glucose 156. She's been initiated on Flovent, IV Solu-Medrol, DuoNeb inhalations. She is seen today in consultation on the regular medical floor. She is up ambulating in her room. She is quite dyspneic with minimal exertion. Dyspneic on conversation. She is afebrile. Hemodynamically stable The patient is seen today 05/05/2021 in follow-up on the regular medical floor. She is currently sitting up in bed. Awake and alert in no acute distress. Still quite bronchospastic and wheezy. Still with dyspnea on minimal exertion. Maintaining O2 saturations in the low 90s on 3 L/m per nasal cannula. Loose nonproductive cough. She is continued on DuoNeb inhalations, Symbicort, IV sign Medrol. She remains on Tessalon Perles. Antibiotics in the form of doxycycline. Heparin for DVT prophylaxis. Progress note dated 05/06/2021. 60-year-old female with a history of underlying COPD. The patient also has a history of diabetes, hyperlipidemia, ongoing tobacco use with nicotine dependence, and of course COPD. She has not been seen by a supervisor grain and yeast plants in the past. Today, she was very short of breath. She had audible wheezing. She was quite tachypnea. The patient was seen in consultation 2 days ago. Sodium 132, potassium 4.6, chlorides 101, CO2 25, anion gap 6, BUN 28, creatinine 0.75. Chest x-ray from today shows bibasilar atelectasis, and a small pulmonary nodule, right lower lobe. Progress note dated 05/07/2021. 60-year-old female, again seen today in room 634. She was admitted with a diagnosis of COPD exacerbation. She was smoking up until the time she came into the hospital. The patient's currently on 3 L nasal cannula, and receiving saline at 10 mL an hour. Yesterday, she was upset because somebody was manipul ating her medication. Anyway, we adjusted the medications yesterday. She is feeling a bit better today, but by no means is ready to be discharged. No new labs today other than a sugar of 356. Chest x-ray shows changes of COPD, some basilar atelectasis, and a very small right lower lobe pulmonary nodule. Progress note dated 05/08/2021. 60-year-old female, again seen in room 634. She's currently on 3 L nasal cannula. She's getting saline at 10 mL an hour. She sitting in a bedside chair watching TV. She appears not to have any respiratory difficulty or distress. There is no audible wheezing, use of accessory muscles, or conversational dyspnea. The patient is feeling much improved. No new laboratory data today except for a blood sugar of 238. Objective - Vital Signs Vital signs: Vital Signs Temp 97.9 F 05/08/21 07:00 Pulse 82 05/08/21 11:53 Resp 16 05/08/21 07:00 BP 126/73 05/08/21 07:00 Pulse Ox 92 L 05/08/21 07:00 Intake & Output 05/07/21 05/08/21 05/08/21 18:59 06:59 18:59 Intake Total 944 240 Output Total 1 1 Balance 943 -1 240 Intake: Oral 944 240 Output: Stool 1 1 Other: Voiding Method Toilet Toilet # Voids 3 4 # Bowel Movements 1 1 - Exam Oriented 3, audible wheezing, very tachypnea. There is conversational dyspnea. HEENT examination is grossly unremarkable. Neck supple. Full range of motion. No adenopathy thyromegaly or neck vein distention. Cardiovascular examination reveals regular rhythm rate. S1-S2 normal. No S3 or S4. No discernible murmur noted. Heart sounds very distant. Heart rate 82 bpm. Lungs reveal inspiratory and expiratory wheezes as well as inspiratory and expiratory rhonchi. Breath sounds around the course. No crackles. Breath sounds are equal bilaterally. 3 L saturation 92 %. Breath sounds are improved today. Abdomen soft bowel sounds are heard. No masses or tenderness. Extremities are intact. No cyanosis clubbing or edema. Skin is without rash or lesion. Neurologic examination is brief but nonfocal. - Labs CBC & Chem 7: 05/03/21 17:19 05/06/21 12:39 Labs: Abnormal Lab Results - Last 24 Hours (Table) 05/07/21 05/07/21 05/08/21 Range/Units 17:07 19:49 07:38 POC Glucose (mg/dL) 249 H 349 H 238 H (75-99) mg/dL Microbiology - Last 24 Hours (Table) 05/03/21 17:19 Blood Culture - Preliminary Blood No Growth after 96 hours 05/03/21 17:19 Blood Culture - Preliminary Blood No Growth after 96 hours Assessment and Plan Assessment: Acute exacerbation of COPD, without evidence of pneumonia. Chronic and ongoing tobacco dependence. Recent admission for COPD exacerbation. Obesity. Hyperlipidemia. History of colon cancer, status post resection. History of seizure, status post spinal anesthesia, 2017. History of anxiety/depression. Pulmonary nodule, right lower lobe. Plan: Plan dated 05/06/2021. The patient's medications are reviewed. We'll discontinue the Symbicort in favor of Pulmicort 1 mg mixed with formoterol 20 g. Also, we'll continue Solu- Medrol at higher doses. Additional recommendations and suggestions are forthcoming. Prognosis is guarded. We will continue to follow the patient and make recommendations where appropriate. Plan dated 05/07/2021. The patient's Solu-Medrol was increased yesterday, and we discontinued the Symbicort in favor of Pulmicort 1 mg, and formoterol 20 g, twice a day. Clinically, the patient appears to be doing a bit better. We will continue to follow make recommendations. Prognosis is guarded. The patient is counseled about the importance of smoking cessation, once and for all. Plan dated 05/08/2021. The patient's on appropriate medications. We increase her Solu-Medrol 60 mg every 6 hours. The patient's also receiving Pulmicort 1 mg, and formoterol, 20 g, twice a day. She's getting breathing treatments 4 times a day and when necessary. The patient continues to improve. Hopefully discharge is 24-48 hours away. Clinically, she's feeling much better and is very appreciative. Time with Patient: Less than 30
[2021-05-08 12:36] LABS: Glucose,Whole Blood 325 mg/dL (75-99)
[2021-05-08 17:21] LABS: Glucose,Whole Blood 383 mg/dL (75-99)
[2021-05-08] MEDS: ATORVASTATIN 40 MG TAB PO SCH (20:01)
[2021-05-08 20:05] LABS: Glucose,Whole Blood 319 mg/dL (75-99)
[2021-05-08] MEDS: QUEtiapine 100 MG TAB PO SCH (20:11)
--- NOTE | 2021-05-08 22:12 | P.PN ---
Subjective Progress Note Date: 05/08/21 Patient is a 60-year-old female with a history of diabetes, dyslipidemia, tobacco abuse, and COPD who presented to the ER with worsening shortness of breath. She was recently hospitalized for COPD with exacerbation and was subsequently discharged home. She completed her steroid taper and got in creasingly short of breath, presented to the urgent care and was told to come here as there was concerns for bilateral pneumonia. In the ER here chest x-ray did not show any evidence of pneumonia. She was found to be hypoxic at 89% on room air. The remainder of her workup showed a lactic acid of 3.1 which responded to IV fluids. She was started on bronchodilators and IV steroids. She was admitted and pulmonary was consulted. She has had a slow but steady improvement in her breathing. Repeat chest x-ray did show right lower lobe nodule. Patient seen and examined at bedside. She states that her breathing is better and her wheezing is somewhat improved however she still unable to do most things. She has not seen a trap setter in the past and she does not plan on smoking when she goes home. General: non toxic, no distress, appears at stated age Derm: warm, dry Head: atraumatic, normocephalic, symmetric Eyes: EOMI, no lid lag, anicteric sclera Mouth: no lip lesion, mucus membranes moist Cardiovascular: S1S2 reg, no murmur, positive posterior tibial pulse bilateral, Lungs: Wheezing bilaterally, no rhonchi, no rales , 3 word conversational dyspnea Abdominal: soft, nontender to palpation, no guarding, no appreciable organomegaly Ext: no gross muscle atrophy, no edema, no contractures Neuro: CN II-XI grossly intact, no focal neuro deficits Psych: Alert, oriented, appropriate affect Acute exacerbation of COPD Acute hypoxic respiratory failure Tobacco abuse A right lower lobe pulmonary nodule -Pulmonary recommendations appreciated -Continue with Solu-Medrol, bronchodilators, pulmonary hygiene -Outpatient follow-up with dedicated chest CT - nicotine replacement and tobacco cessation DM 2 - newly discovered - A1C 7.1 - will need glucometer on dicharge, will be on orals at discharge. Dyslipidemia -statin Obesity - structued outpatient weight loss Chronic: Colon cancer status post resection History of seizure Anxiety and depression Objective - Vital Signs Vital signs: Vital Signs Temp 98.4 F 05/08/21 19:37 Pulse 81 05/08/21 21:50 Resp 16 05/08/21 19:37 BP 138/84 05/08/21 19:37 Pulse Ox 97 05/08/21 21:27 Intake & Output 05/08/21 05/08/21 05/09/21 06:59 18:59 06:59 Intake Total 240 Output Total 1 2 Balance -1 240 -2 Intake: Oral 240 Output: Stool 1 2 Other: Voiding Method Toilet Toilet Toilet # Voids 4 4 2 # Bowel Movements 1 1 - Labs CBC & Chem 7: 05/03/21 17:19 05/06/21 12:39 Labs: Abnormal Lab Results - Last 24 Hours (Table) 05/08/21 05/08/21 05/08/21 Range/Units 07:38 12:34 17:20 POC Glucose (mg/dL) 238 H 325 H 383 H (75-99) mg/dL 05/08/21 Range/Units 20:03 POC Glucose (mg/dL) 319 H (75-99) mg/dL Microbiology - Last 24 Hours (Table) 05/03/21 17:19 Blood Culture - Preliminary Blood No Growth after 120 hours 05/03/21 17:19 Blood Culture - Preliminary Blood No Growth after 120 hours
[2021-05-09] MEDS: HYDROcodone/APAP 5-325MG 1 EACH TAB PO PRN ×3 (01:52→18:04)
[2021-05-09] MEDS: methylPREDNISolone SOD SUCCI 125 MG/2 ML VIAL IV SCH ×3 (05:44→17:54)
[2021-05-09 07:13] LABS: Glucose,Whole Blood 261 mg/dL (75-99)
[2021-05-09] MEDS: BENZONATATE 100 MG CAP PO PRN (08:00)
[2021-05-09] MEDS: HEPARIN SODIUM,PORCINE/PF 5,000 UNIT/0.5 ML SYRINGE SQ SCH ×2 (08:00→17:56)
[2021-05-09] MEDS: ASPIRIN 81 MG PO SCH (08:01)
[2021-05-09] MEDS: INSULIN ASPART (NovoLOG) 100 UNIT/ML VIAL SQ SCH ×7 (08:01→21:24)
[2021-05-09] MEDS: DOXYCYCLINE 100 MG CAP PO SCH ×2 (08:01→20:33)
[2021-05-09] MEDS: INSULIN DETEMIR (LEVEMIR) 100 UNIT/ML SYR SQ SCH (08:01)
[2021-05-09] MEDS: DULoxetine HCL 60 MG CAPSULE.DR PO SCH ×2 (08:01→20:33)
[2021-05-09] MEDS: NICOTINE 14MG/24HR PATCH TRANSDERM SCH (08:03)
[2021-05-09] MEDS: BUTA/APAP/CAF/COD 50-325-40-30 CAP PO PRN ×3 (09:00→21:33)
[2021-05-09] MEDS: IPRATROPIUM-ALBUTEROL 3 ML NEB INHALATION PRN ×4 (09:16→20:35)
[2021-05-09] MEDS: FORMOTEROL FUMARATE 20 MCG/2 ML NEBU INHALATION SCH ×2 (09:16→20:35)
[2021-05-09] MEDS: BUDESONIDE 1 MG/2 ML NEBU INHALATION SCH ×2 (09:16→20:35)
[2021-05-09 12:23] LABS: Glucose,Whole Blood 372 mg/dL (75-99)
--- NOTE | 2021-05-09 13:15 | P.PN ---
Subjective Progress Note Date: 05/09/21 Principal diagnosis: COPD exacerbation. COPD exacerbation This is a pleasant 60-year-old female patient who appears older than stated age with a history of diabetes mellitus, hyperlipidemia, chronic and ongoing tobacco dependence, chronic obstructive pulmonary disease. He was recently discharged for COPD exacerbation. She has not been seen by a inspector plating recently. She is on DuoNeb inhalations, Flovent, Spiriva in the outpatient setting. She presented to the emergency room again yesterday after being seen at urgent care with complaints of worsening shortness of breath, cough and congestion. She was told she has bilateral pneumonia. Chest x-ray does not reveal any evidence of pneumonia. She was hypoxic at 89% on room air. She is at 93% on 3 L/m per nasal cannula. White count 8.1. Hemoglobin 14.3. INR 0.9. Sodium 135. Potassium 4.0. Creatinine 0.54. Initial lactic acid 3.1. Currently 1.5. Blood glucose 156. She's been initiated on Flovent, IV Solu-Medrol, DuoNeb inhalations. She is seen today in consultation on the regular medical floor. She is up ambulating in her room. She is quite dyspneic with minimal exertion. Dyspneic on conversation. She is afebrile. Hemodynamically stable The patient is seen today 05/05/2021 in follow-up on the regular medical floor. She is currently sitting up in bed. Awake and alert in no acute distress. Still quite bronchospastic and wheezy. Still with dyspnea on minimal exertion. Maintaining O2 saturations in the low 90s on 3 L/m per nasal cannula. Loose nonproductive cough. She is continued on DuoNeb inhalations, Symbicort, IV sign Medrol. She remains on Tessalon Perles. Antibiotics in the form of doxycycline. Heparin for DVT prophylaxis. Progress note dated 05/06/2021. 60-year-old female with a history of underlying COPD. The patient also has a history of diabetes, hyperlipidemia, ongoing tobacco use with nicotine dependence, and of course COPD. She has not been seen by a inspector plating in the past. Today, she was very short of breath. She had audible wheezing. She was quite tachypnea. The patient was seen in consultation 2 days ago. Sodium 132, potassium 4.6, chlorides 101, CO2 25, anion gap 6, BUN 28, creatinine 0.75. Chest x-ray from today shows bibasilar atelectasis, and a small pulmonary nodule, right lower lobe. Progress note dated 05/07/2021. 60-year-old female, again seen today in room 634. She was admitted with a diagnosis of COPD exacerbation. She was smoking up until the time she came into the hospital. The patient's currently on 3 L nasal cannula, and receiving saline at 10 mL an hour. Yesterday, she was upset because somebody was manipul ating her medication. Anyway, we adjusted the medications yesterday. She is feeling a bit better today, but by no means is ready to be discharged. No new labs today other than a sugar of 356. Chest x-ray shows changes of COPD, some basilar atelectasis, and a very small right lower lobe pulmonary nodule. Progress note dated 05/08/2021. 60-year-old female, again seen in room 634. She's currently on 3 L nasal cannula. She's getting saline at 10 mL an hour. She sitting in a bedside chair watching TV. She appears not to have any respiratory difficulty or distress. There is no audible wheezing, use of accessory muscles, or conversational dyspnea. The patient is feeling much improved. No new laboratory data today except for a blood sugar of 238. Progress note dated 05/09/2021. 60-year-old female, again seen in room 634. She remains on 3 L nasal cannula. She's getting saline at 10 mL an hour. The patient today is not any better and may be a bit worse and she was yesterday. She is quite congested and short of breath. She had a very heavy wet cough. Because she has been maximally treated with medications, and it does not get any better, I talked to her today about bronchoscopy and BAL. She is in agreement. We will plan on doing that tomorrow. We have asked the nurse to get a consent on the chart. In addition, we asked the nurse Yareli, to keep her nothing by mouth after midnight. I explained the procedure in detail to the patient. Again she agrees. No new lab s or x-rays today. Objective - Vital Signs Vital signs: Vital Signs Temp 98.0 F 05/09/21 07:00 Pulse 100 11/04/21 13:02 Resp 19 05/09/21 07:45 BP 119/76 05/09/21 07:00 Pulse Ox 95 05/09/21 07:00 Intake & Output 05/08/21 05/09/21 05/09/21 18:59 06:59 18:59 Intake Total 240 472 Output Total 2 Balance 240 -2 472 Intake: Oral 240 472 Output: Stool 2 Other: Voiding Method Toilet Toilet Toilet # Voids 4 3 # Bowel Movements 1 - Exam Oriented 3, audible wheezing, very tachypnea. There is conversational dyspnea. HEENT examination is grossly unremarkable. Neck supple. Full range of motion. No adenopathy thyromegaly or neck vein distention. Cardiovascular examination reveals regular rhythm rate. S1-S2 normal. No S3 or S4. No discernible murmur noted. Heart sounds very distant. Heart rate 100 bpm. Lungs reveal inspiratory and expiratory wheezes as well as inspiratory and expiratory rhonchi. Breath sounds around the course. No crackles. Breath sounds are equal bilaterally. 3 L saturation 93 %. Breath sounds are actually worse today than yesterday. Abdomen soft bowel sounds are heard. No masses or tenderness. Extremities are intact. No cyanosis clubbing or edema. Skin is without rash or lesion. Neurologic examination is brief but nonfocal. - Labs CBC & Chem 7: 05/03/21 17:19 05/06/21 12:39 Labs: Abnormal Lab Results - Last 24 Hours (Table) 05/08/21 05/08/21 05/09/21 Range/Units 17:20 20:03 07:11 POC Glucose (mg/dL) 383 H 319 H 261 H (75-99) mg/dL 05/09/21 Range/Units 12:21 POC Glucose (mg/dL) 372 H (75-99) mg/dL Microbiology - Last 24 Hours (Table) 05/03/21 17:19 Blood Culture - Preliminary Blood No Growth after 120 hours 05/03/21 17:19 Blood Culture - Preliminary Blood No Growth after 120 hours Assessment and Plan Assessment: Acute exacerbation of COPD, without evidence of pneumonia. Chronic and ongoing tobacco dependence. Recent admission for COPD exacerbation. Obesity. Hyperlipidemia. History of colon cancer, status post resection. History of seizure, status post spinal anesthesia, 2017. History of anxiety/depression. Pulmonary nodule, right lower lobe. Plan: Plan dated 05/06/2021. The patient's medications are reviewed. We'll discontinue the Symbicort in favor of Pulmicort 1 mg mixed with formoterol 20 g. Also, we'll continue Solu- Medrol at higher doses. Additional recommendations and suggestions are forthcoming. Prognosis is guarded. We will continue to follow the patient and make recommendations where appropriate. Plan dated 05/07/2021. The patient's Solu-Medrol was increased yesterday, and we discontinued the Symbicort in favor of Pulmicort 1 mg, and formoterol 20 g, twice a day. Cli nically, the patient appears to be doing a bit better. We will continue to follow make recommendations. Prognosis is guarded. The patient is counseled about the importance of smoking cessation, once and for all. Plan dated 05/08/2021. The patient's on appropriate medications. We increase her Solu-Medrol 60 mg every 6 hours. The patient's also receiving Pulmicort 1 mg, and formoterol, 20 g, twice a day. She's getting breathing treatments 4 times a day and when necessary. The patient continues to improve. Hopefully discharge is 24-48 hours away. Clinically, she's feeling much better and is very appreciative. Plan dated 05/09/2021. The patient has been maximized on medical therapy. She is receiving Pulmicort, formoterol, albuterol, and ipratropium bromide. The patient is also receiving Solu-Medrol at maximal doses. The patient is no better, and probably a bit worse today. Therefore, the patient will undergo bronchoscopy and BAL tomorrow. She'll be nothing by mouth after midnight. Consent will be placed on the chart. The procedure is explained to the patient in detail. Prognosis overall is guarded. Time with Patient: Less than 30
[2021-05-09 17:36] LABS: Glucose,Whole Blood 278 mg/dL (75-99)
--- NOTE | 2021-05-09 19:24 | P.PN ---
Subjective Progress Note Date: 05/09/21 (delayed charting seen at 1245) Principal diagnosis: shortness of breath Patient is a 60-year-old female with a history of diabetes, dyslipidemia, tobacco abuse, and COPD who presented to the ER with worsening shortness of breath. She was recently hospitalized for COPD with exacerbation and was subsequently discharged home. She completed her steroid taper and got in creasingly short of breath, presented to the urgent care and was told to come here as there was concerns for bilateral pneumonia. In the ER here chest x-ray did not show any evidence of pneumonia. She was found to be hypoxic at 89% on room air. The remainder of her workup showed a lactic acid of 3.1 which responded to IV fluids. She was started on bronchodilators and IV steroids. She was admitted and pulmonary was consulted. She has had a slow but steady improvement in her breathing. Repeat chest x-ray did show right lower lobe nodule. Patient seen and examined at bedside. Still with shortness of breath, wheeze, and cough as well as some chest discomfort. We discussed that she has diabetes. She is aware she had prediabetes. We discussed need for a glucometer, dietitian counseling, and the addition of Januvia if possible her insurance. General: non toxic, no distress, appears at stated age Derm: warm, dry Head: atraumatic, normocephalic, symmetric Eyes: EOMI, no lid lag, anicteric sclera Mouth: no lip lesion, mucus membranes moist Cardiovascular: S1S2 reg, no murmur, positive posterior tibial pulse bilateral, Lungs: Wheezing bilaterally, no rhonchi, no rales , 3 word conversational dyspnea Abdominal: soft, nontender to palpation, no guarding, no appreciable organome candice Ext: no gross muscle atrophy, no edema, no contractures Neuro: CN II-XI grossly intact, no focal neuro deficits Psych: Alert, oriented, appropriate affect Acute exacerbation of COPD Acute hypoxic respiratory failure Tobacco abuse A right lower lobe pulmonary nodule -Pulmonary recommendations appreciated: bronch in AM -Continue with Solu-Medrol, bronchodilators, pulmonary hygiene -Outpatient follow-up with dedicated chest CT - nicotine replacement and tobacco cessation DM 2 - newly discovered - A1C 7.1 - will need glucometer on discharge, will be on orals at discharge. - ivan out januvia in addition to the Metformin she has been on for prediabetes - increase lantus, SSI Dyslipidemia -statin Obesity - structued outpatient weight loss Chronic: Colon cancer status post resection History of seizure Anxiety and depression Objective - Vital Signs Vital signs: Vital Signs Temp 97.7 F 05/09/21 15:00 Pulse 80 05/09/21 17:04 Resp 16 05/09/21 15:00 BP 125/81 05/09/21 15:00 Pulse Ox 91 L 05/09/21 15:00 Intake & Output 05/09/21 05/09/21 05/10/21 06:59 18:59 06:59 Intake Total 1860 Output Total 2 Balance -2 0 Intake: Oral 1860 Output: Stool 2 Other: Voiding Method Toilet Toilet # Voids 3 1 # Bowel Movements 1 - Labs CBC & Chem 7: 05/03/21 17:19 05/06/21 12:39 Labs: Abnormal Lab Results - Last 24 Hours (Table) 05/08/21 05/09/21 05/09/21 Range/Units 20:03 07:11 12:21 POC Glucose (mg/dL) 319 H 261 H 372 H (75-99) mg/dL 05/09/21 Range/Units 17:34 POC Glucose (mg/dL) 278 H (75-99) mg/dL Microbiology - Last 24 Hours (Table) 05/03/21 17:19 Blood Culture - Preliminary Blood No Growth after 120 hours 05/03/21 17:19 Blood Culture - Preliminary Blood No Growth after 120 hours
[2021-05-09] MEDS: QUEtiapine 100 MG TAB PO SCH (20:33)
[2021-05-09] MEDS: ATORVASTATIN 40 MG TAB PO SCH (20:33)
[2021-05-09 21:22] LABS: Glucose,Whole Blood 444 mg/dL (75-99)
[2021-05-10] MEDS: HEPARIN SODIUM,PORCINE/PF 5,000 UNIT/0.5 ML SYRINGE SQ SCH ×4 (00:12→23:43)
[2021-05-10] MEDS: methylPREDNISolone SOD SUCCI 125 MG/2 ML VIAL IV SCH ×4 (00:12→17:51)
[2021-05-10] MEDS: HYDROcodone/APAP 5-325MG 1 EACH TAB PO PRN ×3 (00:12→17:57)
[2021-05-10 07:42] LABS: Glucose,Whole Blood 225 mg/dL (75-99)
[2021-05-10] MEDS: INSULIN ASPART (NovoLOG) 100 UNIT/ML VIAL SQ SCH ×7 (08:07→20:41)
[2021-05-10] MEDS: DULoxetine HCL 60 MG CAPSULE.DR PO SCH ×2 (08:07→20:40)
[2021-05-10] MEDS: DOXYCYCLINE 100 MG CAP PO SCH ×2 (08:07→20:41)
[2021-05-10] MEDS: ASPIRIN 81 MG PO SCH (08:07)
[2021-05-10] MEDS: INSULIN DETEMIR (LEVEMIR) 100 UNIT/ML SYR SQ SCH (08:08)
[2021-05-10] MEDS: NICOTINE 14MG/24HR PATCH TRANSDERM SCH (09:17)
[2021-05-10] MEDS: BUDESONIDE 1 MG/2 ML NEBU INHALATION SCH ×2 (09:28→19:33)
[2021-05-10] MEDS: FORMOTEROL FUMARATE 20 MCG/2 ML NEBU INHALATION SCH ×2 (09:28→19:33)
[2021-05-10] MEDS: IPRATROPIUM-ALBUTEROL 3 ML NEB INHALATION PRN ×3 (09:28→19:34)
[2021-05-10] MEDS ORDERED: PROPOFOL 10 MG/ML 20 ML VIAL IV ONE (11:41)
[2021-05-10] MEDS ORDERED: KETAMINE 10 MG/ML 20 ML VIAL ONE (11:41)
[2021-05-10] MEDS ORDERED: MIDAZOLAM 2 MG/2 ML VIAL ONE (11:41)
[2021-05-10] MEDS ORDERED: fentaNYL (PF) 50 MCG/ML 2 ML AMP ONE (11:41)
[2021-05-10] MEDS ORDERED: LIDOCAINE 1% INJ 10MG/ML (20 ML MDV) ONE (11:41)
[2021-05-10] MEDS ORDERED: IV FLUID CONTINUATION 1,000 ML IV ONE ×2 (11:43)
[2021-05-10 11:48] VITALS: BMI 32.9
[2021-05-10] MEDS ORDERED: LIDOCAINE 2% INJ 20 MG/ML INTRATRACH ONE (12:02)
--- NOTE | 2021-05-10 12:12 | P.PN ---
Subjective Progress Note Date: 05/10/21 Principal diagnosis: COPD exacerbation. COPD exacerbation This is a pleasant 60-year-old female patient who appears older than stated age with a history of diabetes mellitus, hyperlipidemia, chronic and ongoing tobacco dependence, chronic obstructive pulmonary disease. He was recently discharged for COPD exacerbation. She has not been seen by a barrel filler recently. She is on DuoNeb inhalations, Flovent, Spiriva in the outpatient setting. She presented to the emergency room again yesterday after being seen at urgent care with complaints of worsening shortness of breath, cough and congestion. She was told she has bilateral pneumonia. Chest x-ray does not reveal any evidence of pneumonia. She was hypoxic at 89% on room air. She is at 93% on 3 L/m per nasal cannula. White count 8.1. Hemoglobin 14.3. INR 0.9. Sodium 135. Potassium 4.0. Creatinine 0.54. Initial lactic acid 3.1. Currently 1.5. Blood glucose 156. She's been initiated on Flovent, IV Solu-Medrol, DuoNeb inhalations. She is seen today in consultation on the regular medical floor. She is up ambulating in her room. She is quite dyspneic with minimal exertion. Dyspneic on conversation. She is afebrile. Hemodynamically stable The patient is seen today 05/05/2021 in follow-up on the regular medical floor. She is currently sitting up in bed. Awake and alert in no acute distress. Still quite bronchospastic and wheezy. Still with dyspnea on minimal exertion. Maintaining O2 saturations in the low 90s on 3 L/m per nasal cannula. Loose nonproductive cough. She is continued on DuoNeb inhalations, Symbicort, IV sign Medrol. She remains on Tessalon Perles. Antibiotics in the form of doxycycline. Heparin for DVT prophylaxis. Progress note dated 05/06/2021. 60-year-old female with a history of underlying COPD. The patient also has a history of diabetes, hyperlipidemia, ongoing tobacco use with nicotine dependence, and of course COPD. She has not been seen by a barrel filler in the past. Today, she was very short of breath. She had audible wheezing. She was quite tachypnea. The patient was seen in consultation 2 days ago. Sodium 132, potassium 4.6, chlorides 101, CO2 25, anion gap 6, BUN 28, creatinine 0.75. Chest x-ray from today shows bibasilar atelectasis, and a small pulmonary nodule, right lower lobe. Progress note dated 05/07/2021. 60-year-old female, again seen today in room 634. She was admitted with a diagnosis of COPD exacerbation. She was smoking up until the time she came into the hospital. The patient's currently on 3 L nasal cannula, and receiving saline at 10 mL an hour. Yesterday, she was upset because somebody was manipul ating her medication. Anyway, we adjusted the medications yesterday. She is feeling a bit better today, but by no means is ready to be discharged. No new labs today other than a sugar of 356. Chest x-ray shows changes of COPD, some basilar atelectasis, and a very small right lower lobe pulmonary nodule. Progress note dated 05/08/2021. 60-year-old female, again seen in room 634. She's currently on 3 L nasal cannula. She's getting saline at 10 mL an hour. She sitting in a bedside chair watching TV. She appears not to have any respiratory difficulty or distress. There is no audible wheezing, use of accessory muscles, or conversational dyspnea. The patient is feeling much improved. No new laboratory data today except for a blood sugar of 238. Progress note dated 05/09/2021. 60-year-old female, again seen in room 634. She remains on 3 L nasal cannula. She's getting saline at 10 mL an hour. The patient today is not any better and may be a bit worse and she was yesterday. She is quite congested and short of breath. She had a very heavy wet cough. Because she has been maximally treated with medications, and it does not get any better, I talked to her today about bronchoscopy and BAL. She is in agreement. We will plan on doing that tomorrow. We have asked the nurse to get a consent on the chart. In addition, we asked the nurse Yareli, to keep her nothing by mouth after midnight. I explained the procedure in detail to the patient. Again she agrees. No new lab s or x-rays today. Progress note dated 05/10/2021. 60-year-old female, with a history of COPD exacerbation. Because the patient wasn't getting any better, we decided to do bronchoscopy on her today. The patient has a airway examination, and BAL of the right middle lobe. The samples will be sent to laboratory for analysis. She did have some diffuse airway erythema and hyperemia, and had thick secretions noted, that were suctioned. Currently, she still in the bronchoscopy suite. No new labs today other than a sugar of 225. No x-ray today. Medications include Pulmicort, formoterol, doxy cycline, DuoNeb, and Solu-Medrol. Objective - Vital Signs Vital signs: Vital Signs Temp 97.9 F 05/10/21 07:30 Pulse 76 05/10/21 09:52 Resp 17 05/10/21 07:30 BP 116/75 05/10/21 07:30 Pulse Ox 93 L 05/10/21 07:30 Intake & Output 05/09/21 05/10/21 05/10/21 18:59 06:59 18:59 Intake Total 1860 Balance 1860 Weight 81.647 kg Intake: Oral 1859 Other: Voiding Method Toilet Toilet Toilet # Voids 1 0 - Exam Oriented 3, audible wheezing, very tachypnea. There is mild conversational dyspnea. HEENT examination is grossly unremarkable. Neck supple. Full range of motion. No adenopathy thyromegaly or neck vein dis tention. Cardiovascular examination reveals regular rhythm rate. S1-S2 normal. No S3 or S4. No discernible murmur noted. Heart sounds very distant. Heart rate 76 bpm. Lungs reveal inspiratory and expiratory wheezes as well as inspiratory and expiratory rhonchi. Breath sounds around the course. No crackles. Breath sounds are equal bilaterally. 3 L saturation 93 %. Breath sounds are actually worse today than yesterday. Abdomen soft bowel sounds are heard. No masses or tenderness. Extremities are intact. No cyanosis clubbing or edema. Skin is without rash or lesion. Neurologic examination is brief but nonfocal. - Labs CBC & Chem 7: 05/03/21 17:19 05/06/21 12:39 Labs: Abnormal Lab Results - Last 24 Hours (Table) 05/09/21 05/09/21 05/09/21 Range/Units 12:21 17:34 21:20 POC Glucose (mg/dL) 372 H 278 H 444 H (75-99) mg/dL 05/10/21 Range/Units 07:40 POC Glucose (mg/dL) 225 H (75-99) mg/dL Microbiology - Last 24 Hours (Table) 05/03/21 17:19 Blood Culture - Final Blood No Growth after 144 hours 05/03/21 17:19 Blood Culture - Final Blood No Growth after 144 hours Assessment and Plan Assessment: Acute exacerbation of COPD, without evidence of pneumonia, status post bronchoscopy, airway examination, therapeutic lavage, and BAL, on 05/10/2021. Chronic and ongoing tobacco dependence. Recent admission for COPD exacerbation. Obesity. Hyperlipidemia. History of colon cancer, status post resection. History of seizure, status post spinal anesthesia, 2017. History of anxiety/depression. Pulmonary nodule, right lower lobe. Plan: Plan dated 05/06/2021. The patient's medications are reviewed. We'll discontinue the Symbicort in favor of Pulmicort 1 mg mixed with formoterol 20 g. Also, we'll continue Solu- Medrol at higher doses. Additional recommendations and suggestions are forthcoming. Prognosis is guarded. We will continue to follow the patient and make recommendations where appropriate. Plan dated 05/07/2021. The patient's Solu-Medrol was increased yesterday, and we discontinued the Symbicort in favor of Pulmicort 1 mg, and formoterol 20 g, twice a day. Clinically, the patient appears to be doing a bit better. We will continue to follow make recommendations. Prognosis is guarded. The patient is counseled about the importance of smoking cessation, once and for all. Plan dated 05/08/2021. The patient's on appropriate medications. We increase her Solu-Medrol 60 mg every 6 hours. The patient's also receiving Pulmicort 1 mg, and formoterol, 20 g, twice a day. She's getting breathing treatments 4 times a day and when necessary. The patient continues to improve. Hopefully discharge is 24-48 hours away. Clinically, she's feeling much better and is very appreciative. Plan dated 05/09/2021. The patient has been maximized on medical therapy. She is receiving Pulmicort, formoterol, albuterol, and ipratropium bromide. The patient is also receiving Solu-Medrol at maximal doses. The patient is no better, and probably a bit worse today. Therefore, the patient will undergo bronchoscopy and BAL tomorrow. She'll be nothing by mouth after midnight. Consent will be placed on the chart. The procedure is explained to the patient in detail. Prognosis overall is guarded. Plan dated 05/10/2021. Patient remains on maximal medical therapy. The patient underwent bronchoscopy today. We did a BAL the right middle lobe. No samples to be sent to laboratory for analysis. I'm hoping the patient can be discharged home by tomorrow. No additional recommendations are made. Prognosis is guarded. We will continue to follow and make recommendations where appropriate. Time with Patient: Less than 30
[2021-05-10 12:27] LABS: Glucose,Whole Blood 147 mg/dL (75-99)
--- NOTE | 2021-05-10 13:23 | OP ---
OPERATIVE REPORT PROCEDURE: Bronchoscopy, airway examination, therapeutic lavage, BAL. OPERATORS: Dr. Tobar and Dr. Sims. The patient's procedure was done in room #1 Endoscopy. There was informed consent and universal timeout. ANESTHESIA: Anesthesia provided general anesthesia. PREOPERATIVE DIAGNOSIS: Severe COPD exacerbation, retained secretions. POSTOPERATIVE DIAGNOSIS: Severe COPD exacerbation, retained secretions. DESCRIPTION: After the patient was adequately sedated and being fully monitored by anesthesia, the bronchoscope was inserted through the right nostril. It passed through the right nasopharynx into the oropharynx. The hypopharynx was identified and topicalized. The hypopharyngeal structures, including anterior commissure, true cords, false cords, arytenoids, piriform sinuses, right and left valleculae and epiglottis all appeared relatively normal. The glottic opening was topicalized. After topicalization, the bronchoscope was pushed through the glottic opening into the trachea. The trachea had a few secretions within it. Tracheal estevan was sharp. The right and left mainstem were topicalized. There were thick secretions noted throughout. They were suctioned with saline lavage. There was no dominant mass or tumor. There was some erythema and hyperemia of the airways. There was no bleeding. The bronchoscope was wedged into the right middle lobe. The BAL took place. The patient tolerated the procedure well without complication. The fluid will be sent for analysis. There was no immediate complication. The patient will be recovered and returned back to her room. MMODL / IJN: [id number] /
[2021-05-10] MEDS: BUTA/APAP/CAF/COD 50-325-40-30 CAP PO PRN ×2 (14:37→20:40)
[2021-05-10 17:22] LABS: Glucose,Whole Blood 232 mg/dL (75-99)
[2021-05-10 20:10] LABS: Glucose,Whole Blood 356 mg/dL (75-99)
[2021-05-10] MEDS: QUEtiapine 100 MG TAB PO SCH (20:40)
[2021-05-10] MEDS: ATORVASTATIN 40 MG TAB PO SCH (20:41)
[2021-05-10] MEDS ORDERED: BENZOCAINE/MENTHOL LOZENG 1 EACH LOZENGE MUCOUS MEM PRN (21:13)
--- NOTE | 2021-05-10 21:15 | P.PN ---
Subjective Progress Note Date: 05/10/21 (dleayed charting seen at 0930) Principal diagnosis: shortness of breath Patient is a 60-year-old female with a history of diabetes, dyslipidemia, tobacco abuse, and COPD who presented to the ER with worsening shortness of breath. She was recently hospitalized for COPD with exacerbation and was subsequently discharged home. She completed her steroid taper and got in creasingly short of breath, presented to the urgent care and was told to come here as there was concerns for bilateral pneumonia. In the ER here chest x-ray did not show any evidence of pneumonia. She was found to be hypoxic at 89% on room air. The remainder of her workup showed a lactic acid of 3.1 which responded to IV fluids. She was started on bronchodilators and IV steroids. She was admitted and pulmonary was consulted. She has had a slow but steady improvement in her breathing. Repeat chest x-ray did show right lower lobe nodule. She underwent bronchoscopy on with improvement. Patient seen and examined at bedside. Her throat is more sore than before the bronchoscope for her breathing is much better. Her energy is better. She is feeling good enough to go home. General: non toxic, no distress, appears at stated age Derm: warm, dry Head: atraumatic, normocephalic, symmetric Eyes: EOMI, no lid lag, anicteric sclera Mouth: no lip lesion, mucus membranes moist Cardiovascular: S1S2 reg, no murmur, positive posterior tibial pulse bilateral, Lungs: Coarse breath sounds bilateral, no conversational dyspnea Abdominal: soft, nontender to palpation, no guarding, no appreciable organomegaly Ext: no gross muscle atrophy, no edema, no contractures Neuro: CN II-XI grossly intact, no focal neuro deficits Psych: Alert, oriented, appropriate affect Acute exacerbation of COPD Acute hypoxic respiratory failure Tobacco abuse right lower lobe pulmonary nodule -Pulmonary recommendations appreciated: bronch in AM -Continue with Solu-Medrol, bronchodilators, pulmonary hygiene -Outpatient follow-up with dedicated chest CT - nicotine replacement and tobacco cessation DM 2 - newly discovered - A1C 7.1 - will need glucometer on discharge, will be on orals at discharge. - Jaunvia and metformin on discharge - lantus, SSI Dyslipidemia -statin Obesity - structued outpatient weight loss Chronic: Colon cancer status post resection History of seizure Anxiety and depression Objective - Vital Signs Vital signs: Vital Signs Temp 98.9 F 05/10/21 19:07 Pulse 99 05/10/21 19:49 Resp 18 05/10/21 19:07 BP 123/76 05/10/21 19:07 Pulse Ox 94 L 05/10/21 19:07 Intake & Output 05/10/21 05/10/21 05/11/21 06:59 18:59 06:59 Intake Total 200 Output Total 1 Balance 199 Weight 81.647 kg Intake: IV 200 Output: Stool 1 Other: Voiding Method Toilet Toilet # Voids 0 1 - Labs CBC & Chem 7: 05/03/21 17:19 05/06/21 12:39 Labs: Abnormal Lab Results - Last 24 Hours (Table) 05/09/21 05/10/21 05/10/21 Range/Units 21:20 07:40 12:26 POC Glucose (mg/dL) 444 H 225 H 147 H (75-99) mg/dL 05/10/21 05/10/21 Range/Units 17:21 20:08 POC Glucose (mg/dL) 232 H 356 H (75-99) mg/dL Microbiology - Last 24 Hours (Table) 05/03/21 17:19 Blood Culture - Final Blood No Growth after 144 hours 05/03/21 17:19 Blood Culture - Final Blood No Growth after 144 hours
[2021-05-10 21:27] LABS: Appearance,BF Hazy; Nucleated Cells, Body Fluid 286 /uL; RBC, Body Fluid 33 /uL
[2021-05-10 21:31] LABS: Mononuclear WBC,Body Fluid 44 %; Polynuclear WBC,Body Fluid 55 %; Total Cells Counted,Body Fluid 200
[2021-05-11] MEDS: HYDROcodone/APAP 5-325MG 1 EACH TAB PO PRN (01:33)
[2021-05-11 03:02] VITALS: RESP 16
[2021-05-11 07:43] LABS: Glucose,Whole Blood 183 mg/dL (75-99)
[2021-05-11] MEDS: IPRATROPIUM-ALBUTEROL 3 ML NEB INHALATION PRN ×3 (08:17→15:38)
[2021-05-11] MEDS: BUDESONIDE 1 MG/2 ML NEBU INHALATION SCH (08:17)
[2021-05-11] MEDS: FORMOTEROL FUMARATE 20 MCG/2 ML NEBU INHALATION SCH (08:17)
[2021-05-11] MEDS: INSULIN DETEMIR (LEVEMIR) 100 UNIT/ML SYR SQ SCH (08:40)
[2021-05-11] MEDS: INSULIN ASPART (NovoLOG) 100 UNIT/ML VIAL SQ SCH ×6 (08:40→17:47)
[2021-05-11] MEDS: DOXYCYCLINE 100 MG CAP PO SCH (08:41)
[2021-05-11] MEDS: NICOTINE 14MG/24HR PATCH TRANSDERM SCH (08:41)
[2021-05-11] MEDS: DULoxetine HCL 60 MG CAPSULE.DR PO SCH (08:42)
[2021-05-11] MEDS: ASPIRIN 81 MG PO SCH (08:42)
[2021-05-11] MEDS ORDERED: predniSONE 20 MG TAB PO SCH (09:00)
[2021-05-11] MEDS: BUTA/APAP/CAF/COD 50-325-40-30 CAP PO PRN ×2 (09:11→15:23)
[2021-05-11 09:13] VITALS: BP 120/78; TEMP 98
[2021-05-11] MEDS: HEPARIN SODIUM,PORCINE/PF 5,000 UNIT/0.5 ML SYRINGE SQ SCH ×2 (09:40→16:28)
[2021-05-11 12:16] LABS: Glucose,Whole Blood 216 mg/dL (75-99)
--- NOTE | 2021-05-11 13:47 | P.PN ---
Subjective Progress Note Date: 05/11/21 Principal diagnosis: COPD exacerbation. COPD exacerbation This is a pleasant 60-year-old female patient who appears older than stated age with a history of diabetes mellitus, hyperlipidemia, chronic and ongoing tobacco dependence, chronic obstructive pulmonary disease. He was recently discharged for COPD exacerbation. She has not been seen by a pe electrical engineer recently. She is on DuoNeb inhalations, Flovent, Spiriva in the outpatient setting. She presented to the emergency room again yesterday after being seen at urgent care with complaints of worsening shortness of breath, cough and congestion. She was told she has bilateral pneumonia. Chest x-ray does not reveal any evidence of pneumonia. She was hypoxic at 89% on room air. She is at 93% on 3 L/m per nasal cannula. White count 8.1. Hemoglobin 14.3. INR 0.9. Sodium 135. Potassium 4.0. Creatinine 0.54. Initial lactic acid 3.1. Currently 1.5. Blood glucose 156. She's been initiated on Flovent, IV Solu-Medrol, DuoNeb inhalations. She is seen today in consultation on the regular medical floor. She is up ambulating in her room. She is quite dyspneic with minimal exertion. Dyspneic on conversation. She is afebrile. Hemodynamically stable The patient is seen today 05/05/2021 in follow-up on the regular medical floor. She is currently sitting up in bed. Awake and alert in no acute distress. Still quite bronchospastic and wheezy. Still with dyspnea on minimal exertion. Maintaining O2 saturations in the low 90s on 3 L/m per nasal cannula. Loose nonproductive cough. She is continued on DuoNeb inhalations, Symbicort, IV sign Medrol. She remains on Tessalon Perles. Antibiotics in the form of doxycycline. Heparin for DVT prophylaxis. Progress note dated 05/06/2021. 60-year-old female with a history of underlying COPD. The patient also has a history of diabetes, hyperlipidemia, ongoing tobacco use with nicotine dependence, and of course COPD. She has not been seen by a pe electrical engineer in the past. Today, she was very short of breath. She had audible wheezing. She was quite tachypnea. The patient was seen in consultation 2 days ago. Sodium 132, potassium 4.6, chlorides 101, CO2 25, anion gap 6, BUN 28, creatinine 0.75. Chest x-ray from today shows bibasilar atelectasis, and a small pulmonary nodule, right lower lobe. Progress note dated 05/07/2021. 60-year-old female, again seen today in room 634. She was admitted with a diagnosis of COPD exacerbation. She was smoking up until the time she came into the hospital. The patient's currently on 3 L nasal cannula, and receiving saline at 10 mL an hour. Yesterday, she was upset because somebody was manipul ating her medication. Anyway, we adjusted the medications yesterday. She is feeling a bit better today, but by no means is ready to be discharged. No new labs today other than a sugar of 356. Chest x-ray shows changes of COPD, some basilar atelectasis, and a very small right lower lobe pulmonary nodule. Progress note dated 05/08/2021. 60-year-old female, again seen in room 634. She's currently on 3 L nasal cannula. She's getting saline at 10 mL an hour. She sitting in a bedside chair watching TV. She appears not to have any respiratory difficulty or distress. There is no audible wheezing, use of accessory muscles, or conversational dyspnea. The patient is feeling much improved. No new laboratory data today except for a blood sugar of 238. Progress note dated 05/09/2021. 60-year-old female, again seen in room 634. She remains on 3 L nasal cannula. She's getting saline at 10 mL an hour. The patient today is not any better and may be a bit worse and she was yesterday. She is quite congested and short of breath. She had a very heavy wet cough. Because she has been maximally treated with medications, and it does not get any better, I talked to her today about bronchoscopy and BAL. She is in agreement. We will plan on doing that tomorrow. We have asked the nurse to get a consent on the chart. In addition, we asked the nurse Yareli, to keep her nothing by mouth after midnight. I explained the procedure in detail to the patient. Again she agrees. No new lab s or x-rays today. Progress note dated 05/10/2021. 60-year-old female, with a history of COPD exacerbation. Because the patient wasn't getting any better, we decided to do bronchoscopy on her today. The patient has a airway examination, and BAL of the right middle lobe. The samples will be sent to laboratory for analysis. She did have some diffuse airway erythema and hyperemia, and had thick secretions noted, that were suctioned. Currently, she still in the bronchoscopy suite. No new labs today other than a sugar of 225. No x-ray today. Medications include Pulmicort, formoterol, doxy cycline, DuoNeb, and Solu-Medrol. Progress note dated 05/11/2021. 60-year-old female who was admitted with a diagnosis of COPD exacerbation. Yesterday, she underwent bronchoscopy with BAL. The fluid was sent for analysis. She had a BAL of the right middle lobe. Today, she feeling much improved. She feels like she might be ready to be discharged. Of course, that will depend on the primary. Current vital signs are stable. No labs today other than a sugar 216. BAL sampling from yesterday is currently pending. Objective - Vital Signs Vital signs: Vital Signs Temp 98.0 F 05/11/21 07:00 Pulse 88 05/11/21 13:32 Resp 16 05/11/21 08:00 BP 120/78 05/11/21 07:00 Pulse Ox 93 L 05/11/21 13:32 Intake & Output 05/10/21 05/11/21 05/11/21 18:59 06:59 18:59 Intake Total 200 949 Output Total 1 1 1 Balance 199 -1 948 Weight 81.647 kg Intake: IV 200 Oral 949 Output: Stool 1 1 1 Other: Voiding Method Toilet Toilet Toilet # Voids 1 1 - Exam Oriented 3, no conversational dyspnea, or audible wheezing, or use of accessory muscles. HEENT examination is grossly unremarkable. Neck supple. Full range of motion. No adenopathy thyromegaly or neck vein distention. Cardiovascular examination reveals regular rhythm rate. S1-S2 normal. No S3 or S4. No discernible murmur noted. Heart sounds very distant. Heart rate 82 bpm. Lungs reveal inspiratory and expiratory wheezes as well as inspiratory and expiratory rhonchi. Breath sounds around the course. No crackles. Breath sounds are equal bilaterally. Room air saturation 93%. Breath sounds are much improved. Abdomen soft bowel sounds are heard. No masses or tenderness. Extremities are intact. No cyanosis clubbing or edema. Skin is without rash or lesion. Neurologic examination is brief but nonfocal. - Labs CBC & Chem 7: 05/03/21 17:19 05/06/21 12:39 Labs: Abnormal Lab Results - Last 24 Hours (Table) 05/10/21 05/10/21 05/11/21 Range/Units 17:21 20:08 07:42 POC Glucose (mg/dL) 232 H 356 H 183 H (75-99) mg/dL 05/11/21 Range/Units 12:15 POC Glucose (mg/dL) 216 H (75-99) mg/dL Microbiology - Last 24 Hours (Table) 05/10/21 12:00 Gram Stain - Preliminary Bronchial Washings - Random Bronchial Washings Culture - Preliminary 05/10/21 12:00 Fungal Culture - Preliminary Bronchial Washings - Random 05/10/21 12:00 Acid Fast Bacilli Culture - Preliminary Bronchial Washings - Random Assessment and Plan Assessment: Acute exacerbation of COPD, without evidence of pneumonia, status post bronchoscopy, airway examination, therapeutic lavage, and BAL, on 05/10/2021. Chronic and ongoing tobacco dependence. Recent admission for COPD exacerbation. Obesity. Hyperlipidemia. History of colon cancer, status post resection. History of seizure, status post spinal anesthesia, 2017. History of anxiety/depression. Pulmonary nodule, right lower lobe. Plan: Plan dated 05/06/2021. The patient's medications are reviewed. We'll discontinue the Symbicort in favor of Pulmicort 1 mg mixed with formoterol 20 g. Also, we'll continue Solu- Medrol at higher doses. Additional recommendations and suggestions are forthcoming. Prognosis is guarded. We will continue to follow the patient and make recommendations where appropriate. Plan dated 05/07/2021. The patient's Solu-Medrol was increased yesterday, and we discontinued the Symbicort in favor of Pulmicort 1 mg, and formoterol 20 g, twice a day. Clinically, the patient appears to be doing a bit better. We will continue to follow make recommendations. Prognosis is guarded. The patient is counseled about the importance of smoking cessation, once and for all. Plan dated 05/08/2021. The patient's on appropriate medications. We increase her Solu-Medrol 60 mg every 6 hours. The patient's also receiving Pulmicort 1 mg, and formoterol, 20 g, twice a day. She's getting breathing treatments 4 times a day and when necessary. The patient continues to improve. Hopefully discharge is 24-48 hours away. Clinically, she's feeling much better and is very appreciative. Plan dated 05/09/2021. The patient has been maximized on medical therapy. She is receiving Pulmicort, formoterol, albuterol, and ipratropium bromide. The patient is also receiving Solu-Medrol at maximal doses. The patient is no better, and probably a bit worse today. Therefore, the patient will undergo bronchoscopy and BAL tomorrow. She'll be nothing by mouth after midnight. Consent will be placed on the chart. The procedure is explained to the patient in detail. Prognosis overall is guarded. Plan dated 05/10/2021. Patient remains on maximal medical therapy. The patient underwent bronchoscopy today. We did a BAL the right middle lobe. No samples to be sent to laboratory for analysis. I'm hoping the patient can be discharged home by tomorrow. No additional recommendations are made. Prognosis is guarded. We will continue to follow and make recommendations where appropriate. Plan dated 05/11/2021. The patient is much improved today. The primary service is considering possible discharge. There will check her room air resting saturation, and her saturation while she exerts himself up and down the hallway. The patient could be dis charged home on a prednisone burst and taper, beginning with 40 mg a day for 4 days and reducing the dose by 10 mg every fifth day. Additional recommendations and suggestions are forthcoming. The patient will follow with my partner to review the results of the bronchoscopy. Time with Patient: Less than 30
[2021-05-11 15:49] VITALS: PULSE 92
--- NOTE | 2021-05-11 16:37 | P.DS ---
Providers Date of admission: 05/06/21 08:42 Expected date of discharge: 05/11/21 Attending physician: Keysha Baltazar DO Consults: 05/03/21 19:06 Consult Physician Routine Consulting Provider: Victorino Elise Consult Reason/Comments: established COPD patient Do you want consulting provider notified?: Yes, Notify in am Primary care physician: Riley Casas Hospital Course: Discharge Diagnosis: Acute exacerbation of COPD Acute hypoxic respiratory failure Diabetes mellitus type II Chronic tobacco abuyse Obesity HLD RLL Pulmonary nodule Hospital Course: Patient is a 60-year-old female with a history of diabetes, dyslipidemia, tobacco abuse, and COPD who presented to the ER with worsening shortness of juanjo th. She was recently hospitalized for COPD with exacerbation and was subsequently discharged home. She completed her steroid taper and got increasingly short of breath, presented to the urgent care and was told to come here as there was concerns for bilateral pneumonia. In the ER here chest x-ray did not show any evidence of pneumonia. She was found to be hypoxic at 89% on room air. The remainder of her workup showed a lactic acid of 3.1 which responded to IV fluids. She was started on bronchodilators and IV steroids. She is noted to have hyperglycemia and A1c was checked which was 7.7 just subsequently diagnosed with overt diabetes. She was admitted and pulmonary was consulted. She has had a slow but steady improvement in her breathing. Repeat chest x-ray did show right lower lobe nodule. She underwent bronchoscopy on with improvement. She was feeling that should could manage at home. She had her nebulizer delivered. She was evaluated at walk-in the hallways desatted to 87%. Arrangements were made for home O2. Follow-up: Dr. Casas in 2-3 days, Dr. Myles in 2 weeks, Prednisone robe. Added Januiva and increased Metformin. Nebulizer was delivered as well as a glucometer. Patient would benefit from referral to chronic rehabilitation manager as she has difficulty obtaining access to adequate medical supplies. Bronch results were pending at time for discharge. Patient seen and examined at bedside. Denies any shortness of breath that is significant, cough is much better, still has a sore throat, still having some pain with her chest. Asked for refill of her Fioricet and [place] until she can see her primary. I did give her a several-day supply. Vital signs reviewed and stable. General: non toxic, no distress, appears at stated age Derm: warm, dry Head: atraumatic, normocephalic, symmetric Eyes: EOMI, no lid lag, anicteric sclera Mouth: no lip lesion, mucus membranes moist Cardiovascular: S1S2 reg, no murmur, positive posterior tibial pulse bilateral, Lungs: Course bs bilateral, no rhonchi, no rales , no accessory muscle use Abdominal: soft, nontender to palpation, no guarding, no appreciable organomegaly Ext: no gross muscle atrophy, no edema, no contractures Neuro: CN II-XI grossly intact, no focal neuro deficits Psych: Alert, oriented, appropriate affect A total of 32 minutes of time were spent preparing this complex discharge summary . Patient Condition at Discharge: Stable Plan - Discharge Summary Discharge Rx Participant: No New Discharge Prescriptions: New HYDROcodone/APAP 5-325MG [[place] 5-325] 1 each PO Q6HR PRN #21 tab PRN Reason: Pain Benzonatate [Tessalon Perles] 200 mg PO TID PRN #30 cap PRN Reason: Cough sitaGLIPtin PHOSPHATE [Januvia] 100 mg PO DAILY #30 tab metFORMIN HCL [Glucophage] 1,000 mg PO BID #60 tab Nicotine 14Mg/24Hr Patch [Habitrol] 1 patch TRANSDERM DAILY #30 patch predniSONE 0 mg PO DIRECTED #50 tab Continue Ipratropium-Albuterol Nebulize [Duoneb 0.5 mg-3 mg/3 ml Soln] 3 ml INHALATION RT-QID PRN PRN Reason: Dyspnea Fluticasone Propionate [Flovent Hfa 220 mcg] 1 puff INHALATION RT-DAILY Tiotropium 18 Mcg/Puff [Spiriva] 1 cap INHALATION RT-DAILY Atorvastatin Calcium [Lipitor] 40 mg PO HS Aspirin EC [Ecotrin Low Dose] 81 mg PO DAILY QUEtiapine [SEROquel] 100 mg PO HS DULoxetine HCL [Cymbalta] 60 mg PO BID guaiFENesin [Mucinex] 600 mg PO Q12HR PRN PRN Reason: COUGH/CONGESTION Changed [place]/APAP/Caf/Cod 01-429-76-30 [Fioricet w/Cod 15-952-63-30MG] 1 cap PO Q4HR PRN #21 cap PRN Reason: Migraine Headache Discontinued metFORMIN HCL [Glucophage] 500 mg PO BID Discharge Medication List Ipratropium-Albuterol Nebulize [Duoneb 0.5 mg-3 mg/3 ml Soln] 3 ml INHALATION RT-QID PRN 04/22/19 [History] Aspirin EC [Ecotrin Low Dose] 81 mg PO DAILY 04/12/21 [History] Atorvastatin Calcium [Lipitor] 40 mg PO HS 04/12/21 [History] DULoxetine HCL [Cymbalta] 60 mg PO BID 04/12/21 [History] Fluticasone Propionate [Flovent Hfa 220 mcg] 1 puff INHALATION RT-DAILY 04/12/21 [History] QUEtiapine [SEROquel] 100 mg PO HS 04/12/21 [History] Tiotropium 18 Mcg/Puff [Spiriva] 1 cap INHALATION RT-DAILY 04/12/21 [History] guaiFENesin [Mucinex] 600 mg PO Q12HR PRN 05/03/21 [History] sitaGLIPtin PHOSPHATE [Januvia] 100 mg PO DAILY #30 tab 05/09/21 [Rx] Benzonatate [Tessalon Perles] 200 mg PO TID PRN #30 cap 05/11/21 [Rx] [place]/APAP/Caf/Cod [id number] [Fioricet w/Cod 92-931-97-30MG] 1 cap PO Q4HR PRN #21 cap 05/11/21 [Rx] HYDROcodone/APAP 5-325MG [[place] 5-325] 1 each PO Q6HR PRN #21 tab 05/11/21 [Rx] Nicotine 14Mg/24Hr Patch [Habitrol] 1 patch TRANSDERM DAILY #30 patch 05/11/21 [Rx] metFORMIN HCL [Glucophage] 1,000 mg PO BID #60 tab 05/11/21 [Rx] predniSONE 0 mg PO DIRECTED #50 tab 05/11/21 [Rx] Follow up Appointment(s)/Referral(s): Bran Myles MD [STAFF PHYSICIAN] - 1 Week Riley Casas [Primary Care Provider] - 1-2 days Patient Instructions/Handouts: COPD (Chronic Obstructive Pulmonary Disease) (DC), Chronic Bronchitis (GEN), Chronic Lung Disease and Infection Prevention (DC) Activity/Diet/Wound Care/Special Instructions: Activity: as tolerated Diet: carb consistent Special Instructions: Douneb 4 times daily for then next 7 days and then every 6 hours as needed Check blood sugar every morning, it will likely be elevated for the next few days as you come off steroids, drink lots of fluids Thank you for trusting us with your care. It was a pleasure caring for you, we wish you well as you recover and on your smoking cessation journey. Discharge Disposition: HOME WITH HOME HEALTH SERVICES
[2021-05-11 17:20] LABS: Glucose,Whole Blood 256 mg/dL (75-99)
== END 2021-05-11 18:10 | disposition home health service (06) | DRG 190 ==
LOC: EC 15:59 → 6NMEDSUR 19:06 → OBSVTOIN 05-06 08:42
PROVIDERS: ADMIT Internal Medicine; ATTEND Internal Medicine
PROC: 3E0F7SF Introduction of Other Gas into Respiratory Tract, Via Natural or Artificial Opening (ICD-10-PCS; 2021-05-03)
PROC: 0BD58ZX Extraction of Right Middle Lobe Bronchus, Via Natural or Artificial Opening Endoscopic, Diagnostic (ICD-10-PCS; 2021-05-10)
PROC: 0B9D8ZX Drainage of Right Middle Lung Lobe, Via Natural or Artificial Opening Endoscopic, Diagnostic (ICD-10-PCS; principal; 2021-05-10 07:30)
DX: J44.1 Chronic obstructive pulmonary disease with (acute) exacerbation (principal); J96.01 Acute respiratory failure with hypoxia; E87.2 Acidosis; J98.11 Atelectasis; E11.65 Type 2 diabetes mellitus with hyperglycemia; Z20.822 Contact with and (suspected) exposure to COVID-19; R91.1 Solitary pulmonary nodule; E66.9 Obesity, unspecified; Z68.32 Body mass index [BMI] 32.0-32.9, adult; T38.0X5A Adverse effect of glucocorticoids and synthetic analogues, initial encounter; F17.210 Nicotine dependence, cigarettes, uncomplicated; E78.5 Hyperlipidemia, unspecified; F32.9 Major depressive disorder, single episode, unspecified; G40.909 Epilepsy, unspecified, not intractable, without status epilepticus; G43.909 Migraine, unspecified, not intractable, without status migrainosus; F41.9 Anxiety disorder, unspecified; I25.2 Old myocardial infarction; Z79.51 Long term (current) use of inhaled steroids; Z79.82 Long term (current) use of aspirin; Z79.84 Long term (current) use of oral hypoglycemic drugs; Z79.899 Other long term (current) drug therapy; Z85.038 Personal history of other malignant neoplasm of large intestine; Z90.49 Acquired absence of other specified parts of digestive tract; Z93.3 Colostomy status; X58.XXXA Exposure to other specified factors, initial encounter; Z71.6 Tobacco abuse counseling; Z87.19 Personal history of other diseases of the digestive system
CPT/HCPCS: 31624; 36415; 71045; 71046; 80048; 80053; 81001; 83036; 83605; 83880; 85025; 85610; 85730; 87040; 87070; 87102; 87116; 87205; 87206; 87252; 87496; 87498; 87502; 87529; 87634; 87798; 88108; 88305; 89050; 93005; 94640; 94760; 96374; 99285

== ENCOUNTER 2022-03-11 07:04 | Observation (INO) | payer OTHER ==
[~2022-03-11 07:04] MED LIST changes: +ACETAMINOPHEN TAB 500 MG TAB PO PRN; +HEPARIN SODIUM,PORCINE/PF 5,000 UNIT/0.5 ML SYRINGE SQ PRN; -LACTATED RINGERS 1,000 ML IV SCH; -LIDOCAINE 1% 20 ML VIAL (10MG/ML) FOR IV START INTRADERMA PRN
[2022-03-11] MEDS ORDERED: LIDOCAINE 1% (10MG/ML) FOR IV START INTRADERMA PRN (07:33)
[2022-03-11] MEDS ORDERED: SCOPOLAMINE 1 MG/72 HR PATCH TRANSDERM ONE (07:33)
[2022-03-11] MEDS ORDERED: ONDANSETRON 4 MG/2 ML VIAL IVP ONE ×2 (07:33→07:40)
[2022-03-11] MEDS ORDERED: DEXAMETHASONE SOD PHOSPHATE 4 MG/ML 1 ML VIAL IV ONE (07:33)
[2022-03-11] MEDS ORDERED: ONDANSETRON 4 MG/2 ML VIAL ONE (07:39)
[2022-03-11] MEDS ORDERED: DEXAMETHASONE SOD PHOSPHATE 4 MG/ML 1 ML VIAL IVP ONE (07:41)
[2022-03-11 07:44] LABS: Glucose,Whole Blood 110 mg/dL (70-110)
[2022-03-11] MEDS ORDERED: LACTATED RINGERS 1,000 ML IV ONE ×3 (07:45→10:53)
--- NOTE | 2022-03-11 08:38 | P.GSHP ---
History of Present Illness H&P Date: 03/11/22 Chief Complaint: Incisional hernia This a 61-year-old female who's developed an incisional hernia related to her previous midline incisional scar. Patient has 2 areas of herniation measures approximately 5 cm diameter each superior and inferior portion of the scar. Past Medical History Past Medical History: Asthma, Cancer, COPD, Diabetes Mellitus, GERD/Reflux, Hyperlipidemia, Myocardial Infarction (IA), Osteoarthritis (OA), Pneumonia, Seizure Disorder Additional Past Medical History / Comment(s): migraines, colon cancer ,LAST SEIZUE AUG 30, 2016, IA on EKG , "abdominal hernia", diarrhea, Last Myocardial Infarction Date:: unknown History of Any Multi-Drug Resistant Organisms: VRE Date of last positivie culture/infection: 08/01/16 MDRO Source:: Abdomen Past Surgical History: Appendectomy, Bowel Resection, Cholecystectomy, Hernia Repair, Tonsillectomy Additional Past Surgical History / Comment(s): bowel resection with COLOSTOMY/later reversed Past Anesthesia/Blood Transfusion Reactions: Previous Problems w/ Anesthesia Additional Past Anesthesia/Blood Transfusion Reaction / Comment(s): "spinal/epidural anesthesia WITH COLON SURGERY- WHEN THE TUBE WAS REMOVED AIR BUBBLE WENT THE BRAIN. SHE WAS TRANSFERED TO ICU BECAUSE OF SEIZURES" AUG 2016", "i can not have epidural" Smoking Status: Current every day smoker - Past Family History Mother Family Medical History: No Reported History Father Family Medical History: COPD, Coronary Artery Disease (CAD) Medications and Allergies Home Medications Medication Instructions Recorded Confirmed Type Ipratropium-Albuterol Nebulize 3 ml INHALATION RT-QID PRN 04/22/19 03/11/22 History [Duoneb 0.5 mg-3 mg/3 ml Soln] Aspirin EC [Ecotrin Low Dose] 81 mg PO DAILY 04/12/21 03/11/22 History DULoxetine HCL [Cymbalta] 60 mg PO BID 04/12/21 03/11/22 History Fluticasone Propionate [Flovent 1 puff INHALATION RT-DAILY 04/12/21 03/11/22 History Hfa 220 mcg] QUEtiapine [SEROquel] 100 mg PO HS 04/12/21 03/11/22 History Benzonatate [Tessalon Perles] 200 mg PO TID PRN #30 cap 05/11/21 03/11/22 Rx [place]/APAP/Caf/Cod [id number] 1 cap PO Q4HR PRN #21 cap 05/11/21 03/11/22 Rx [Fioricet w/Cod [id number]] HYDROcodone/APAP 5-325MG [[place] 1 each PO Q6HR PRN #21 tab 05/11/21 03/11/22 Rx 5-325] metFORMIN HCL [Glucophage] 1,000 mg PO BID #60 tab 05/11/21 03/11/22 Rx Albuterol Sulfate [Proair Hfa] 1 puff INHALATION DIRECTED PRN 02/18/22 03/11/22 History Tiotropium 18 Mcg/Puff [Spiriva] 1 puff INHALATION DAILY 02/18/22 03/11/22 History Allergies Allergy/AdvReac Type Severity Reaction Status Date / Time No Known Allergies Allergy Verified 03/11/22 07:25 Surgical - Exam Vital Signs Temp Pulse Resp BP Pulse Ox 97 F L 104 H 17 126/67 93 L 03/11/22 07:25 03/11/22 07:25 03/11/22 07:25 03/11/22 07:25 03/11/22 07:25 - General well developed, well nourished, no distress - Eyes PERRL - ENT normal pinna - Neck no masses - Respiratory normal expansion - Cardiovascular Rhythm: regular - Abdomen Abdomen: soft, non tender Assessment and Plan Assessment: Incisional hernia. We'll perform open repair with mesh.
[2022-03-11] MEDS ORDERED: MIDAZOLAM 2 MG/2 ML VIAL IVP ONE (08:44)
[2022-03-11] MEDS ORDERED: DEXAMETHASONE SOD PHOSPHATE 4 MG/ML 1 ML VIAL ONE (08:56)
[2022-03-11] MEDS ORDERED: PHENYLEPHRINE-0.9% NACL SYG 1,000 MCG/10 ML SYRINGE ONE (08:56)
[2022-03-11] MEDS ORDERED: ROPIVACAINE 5 MG/ML 30 ML VIAL ONE (08:56)
[2022-03-11] MEDS ORDERED: LIDOCAINE 2% INJ 20 MG/ML (2 ML VIAL) ONE (08:56)
[2022-03-11] MEDS ORDERED: NEOSTIGMINE 1 MG/ML 10 ML VIAL ONE (08:56)
[2022-03-11] MEDS ORDERED: ROCURONIUM 10 MG/ML (5 ML VIAL) IV ONE (08:56)
[2022-03-11] MEDS ORDERED: fentaNYL (PF) 50 MCG/ML 2 ML AMP ONE (08:56)
[2022-03-11] MEDS ORDERED: SUCCINYLCHOLINE CHLORIDE 200 MG/10 ML VIAL IV ONE (08:56)
[2022-03-11] MEDS ORDERED: GLYCOPYRROLATE 0.2 MG/ML 2 ML VIAL ONE (08:56)
[2022-03-11] MEDS ORDERED: BUPIVACAIN-EPI 0.25%-1:200,000 30 ML VIAL SQ ONE (09:25)
[2022-03-11] MEDS ORDERED: NALOXONE 0.4 MG/ML 1 ML VIAL IV PRN (10:48)
[2022-03-11] MEDS ORDERED: ACETAMINOPHEN TAB 325 MG TAB PO PRN (10:48)
[2022-03-11] MEDS ORDERED: ONDANSETRON 4 MG/2 ML VIAL IVP PRN (10:48)
--- NOTE | 2022-03-11 10:48 | P.OP ---
Date of Procedure: 03/11/22 Preoperative Diagnosis: Large incisional hernia Postoperative Diagnosis: Large incisional hernia Extensive adhesions Adhesions Procedure(s) Performed: Open repair of incisional hernia with mesh Lysis of extensive adhesions Anesthesia: EUGENIO Surgeon: Clemente Caceres Estimated Blood Loss (ml): 75 Pathology: other (Hernia sac) Condition: stable Disposition: PACU Description of Procedure: The patient's placed on the operative table in the supine position. She received general endotracheal anesthesia. Her abdomen was prepped and draped in sterile fashion. The skin was incised along the midline scar. Patient had a large incisional hernia located above and below the umbilicus. The fascia was exposed using electrocautery and sharp dissection and blunt dissection. Hernia sac was then opened and then excised. There is a large amount of incarcerated small bowel within the hernia. There is extensive adhesions. Approximately 25 minutes operative time used to lyse adhesions. Once the adhesions were lysed. The fascia was reapproximated using 0 Ethibond interrupted buried suture. And this was buttressed with a #1 John fix suture. A Prolene mesh was cut to appropriate size and then the Prolene mesh secured with secure strap tacker. A BRITTA drains placed on top of the mesh. Brought out through a stab incision in the right upper quadrant. Bibi's fascia close 0 Vicryl. Skin was closed adilia. Patient top she will was sent to recovery in stable condition.
[2022-03-11] MEDS ORDERED: HYDROmorphone 0.5 MG/0.5 ML SYRINGE IVP ONE (11:17)
[2022-03-11] MEDS: HYDROmorphone 0.5 MG/0.5 ML SYRINGE IVP PRN ×4 (11:33→23:11)
[2022-03-11] MEDS: KETOROLAC 15 MG/ML 1 ML VIAL IVP SCH ×3 (11:44→23:10)
[2022-03-11] MEDS: LACTATED RINGERS 1,000 ML IV SCH (19:33)
[2022-03-11] MEDS: DOCUSATE 100 MG CAP PO SCH (19:56)
[2022-03-11] MEDS ORDERED: IPRATROPIUM-ALBUTEROL 3 ML NEB INHALATION PRN (21:43)
[2022-03-11] MEDS ORDERED: BENZONATATE 100 MG CAP PO PRN (21:43)
[2022-03-11] MEDS ORDERED: MELATONIN 3 MG TABLET PO PRN (21:47)
[2022-03-11] MEDS ORDERED: ALBUTEROL NEBULIZED 2.5 MG/3 ML INHALATION PRN (22:00)
[2022-03-11] MEDS: DULoxetine HCL 60 MG CAPSULE.DR PO SCH (22:28)
[2022-03-11] MEDS: QUEtiapine 100 MG TAB PO SCH (22:28)
[2022-03-12] MEDS: HYDROmorphone 0.5 MG/0.5 ML SYRINGE IVP PRN ×3 (03:02→16:44)
[2022-03-12] MEDS: KETOROLAC 15 MG/ML 1 ML VIAL IVP SCH ×3 (05:29→19:53)
[2022-03-12] MEDS: IPRATROPIUM 0.5 MG/2.5 ML NEBU INHALATION SCH ×4 (07:35→21:17)
--- NOTE | 2022-03-12 09:41 | P.CONS ---
History of Present Illness - Reason for Consult Consult date: 03/12/22 Medical Management Requesting physician: Clemente Caceres - History of Present Illness History of Presenting Illness: Patient is a they pleasant 61-year-old female with a past medical history of hyperlipidemia, GERD, seizure disorder, COPD with continued nicotine dependence, and colon cancer status post bowel resection. she is currently admitted under general surgery team status post open hernia repair with mesh placement due to development of an incisional hernia. We have been consulted for medical management throughout patient's hospitalization. patient was seen and fully evaluated at bedside this morning. Patient sitting up in bed she reports postoperative pain is controlled "As long as I do not move". Abdominal binder is in place and upon removal patient's postsurgical dressing is clean dry and intact with no signs of bleeding or drainage. patient reports she has been tolerating oral intake and denies having any postsurgical nausea or vomiting. Patient denies passing flatus or having bowel movement in postsurgical period. Patient denies having any headache, lightheadedness, dizziness, chest pain, palpitations, shortness of breath, cough, congestion, or experiencing any nausea or vomiting. She denies history of DVTs or PEs. Review of systems: Pertinent positives and negatives as discussed in HPI, a complete review of systems was performed and all other systems are negative. Physical exam: Vital signs reviewed and stable. General: Nontoxic, no distress and appears stated age. Derm: Skin warm and dry, normal coloration for ethnicity. Head: Atraumatic, normocephalic and symmetric. Eyes: EOMs intact, no lid lag, and anicteric sclera Mouth: no lip lesions, mucus membranes moist Cardiovascular: regular rate and rhythm with normal S1S2, no murmur, positive posterior tibial pulses bilaterally, and cap refill < 2 seconds. Lungs: Respirations even, regular, and unlabored on room air. Lungs CTA bilaterally, no rhonchi, no rales, no wheezing, and no accessory muscle usage. Abdominal: Soft, hypoactive bowel sounds. Dressing to the midline abdomen clean dry and intact with no signs of bleeding through. BRITTA drain with serosanguineous drainage. Ext: ROM intact. No gross muscle atrophy, no edema, no contractures Neuro: Speech clear, face symmetrical and CN II-XII grossly intact with no noted focal neuro deficits Psych: Alert and oriented to person, place, time, and situation. Appropriate and pleasant affect. Assessment and Plan of Care: Status post open hernia repair with mesh and lysis of adhesions -Management per primary admitting general surgery team including pain management, DVT prophylaxis, postoperative wound care/dressing changes and drain management. -Patient currently and DVT prophylaxis with Lovenox. -Encourage splinting and use of abdominal binder. -Encourage use of incentive spirometry 10-15 times hourly while awake. Lnf-[id number] diabetes mellitus -Hold Glucophage in place patient on glycemic protocol with NovoLog sliding scale. History of COPD, not in acute exacerbation -Encourage use of incentive spirometry 10-15 times hourly while awake. -Continue daily Spiriva and as needed DuoNebs for shortness of breath and/or wheezing. -Encourage smoking cessation. -Nicotine patch History of seizure disorder -Patient no longer on antiepileptic medications. Reports last seizure was 2016. -seizure precautions. GERD -PPI with Protonix daily. Anxiety/depression -Continue daily medication regimen with Seroquel. Thank you for allowing us to participate in the care of this pleasant patient. Do not hesitate to contact us with questions. Someone can be reached from the [facility] hospitalist group all hours of the day at [phone] or via [email or web address]. I reviewed the documentation as provided by the KENNY above, who is the original author of this note. I agree with the documented assessment and plan, with the following changes: none Past Medical History Past Medical History: Asthma, Cancer, COPD, Diabetes Mellitus, GERD/Reflux, Hyperlipidemia, Myocardial Infarction ([place]), Osteoarthritis (OA), Pneumonia, Seizure Disorder Additional Past Medical History / Comment(s): migraines, colon cancer ,LAST SEIZUE AUG 30, 2016, [place] on EKG , "abdominal hernia", diarrhea, Last Myocardial Infarction Date:: unknown History of Any Multi-Drug Resistant Organisms: VRE Year Discovered:: 08/01/16 MDRO Source:: Abdomen Past Surgical History: Appendectomy, Bowel Resection, Cholecystectomy, Hernia Repair, Tonsillectomy Additional Past Surgical History / Comment(s): bowel resection with COLOSTOMY/later reversed Past Anesthesia/Blood Transfusion Reactions: Previous Problems w/ Anesthesia Additional Past Anesthesia/Blood Transfusion Reaction / Comm: "spinal/epidural anesthesia WITH COLON SURGERY- WHEN THE TUBE WAS REMOVED AIR BUBBLE WENT THE BRAIN. SHE WAS TRANSFERED TO ICU BECAUSE OF SEIZURES" AUG 2016", "i can not have epidural" Smoking Status: Current every day smoker - Past Family History Mother Family Medical History: No Reported History Father Family Medical History: COPD, Coronary Artery Disease (CAD) Medications and Allergies Home Medications Medication Instructions Recorded Confirmed Type Ipratropium-Albuterol Nebulize 3 ml INHALATION RT-QID PRN 04/22/19 03/11/22 History [Duoneb 0.5 mg-3 mg/3 ml Soln] Aspirin EC [Ecotrin Low Dose] 81 mg PO DAILY 04/12/21 03/11/22 History DULoxetine HCL [Cymbalta] 60 mg PO BID 04/12/21 03/11/22 History Fluticasone Propionate [Flovent 1 puff INHALATION RT-DAILY 04/12/21 03/11/22 History Hfa 220 mcg] QUEtiapine [SEROquel] 100 mg PO HS 04/12/21 03/11/22 History Benzonatate [Tessalon Perles] 200 mg PO TID PRN #30 cap 05/11/21 03/11/22 Rx Buta/APAP/Caf/Cod 81-620-62-30 1 cap PO Q4HR PRN #21 cap 05/11/21 03/11/22 Rx [Fioricet w/Cod 44-393-43-30MG] HYDROcodone/APAP 5-325MG [[place] 1 each PO Q6HR PRN #21 tab 05/11/21 03/11/22 Rx 5-325] metFORMIN HCL [Glucophage] 1,000 mg PO BID #60 tab 05/11/21 03/11/22 Rx Albuterol Sulfate [Proair Hfa] 1 puff INHALATION DIRECTED PRN 02/18/22 03/11/22 History Tiotropium 18 Mcg/Puff [Spiriva] 1 puff INHALATION DAILY 02/18/22 03/11/22 History Allergies Allergy/AdvReac Type Severity Reaction Status Date / Time No Known Allergies Allergy Verified 03/11/22 07:25 Physical Exam Osteopathic Statement: *. No significant issues noted on an osteopathic structural exam other than those noted in the History and Physical/Consult. Vitals: Vital Signs Temp Pulse Pulse Pulse Pulse Resp BP 03/12/22 07:45 94 03/12/22 07:41 03/12/22 07:35 93 03/12/22 07:00 98.0 F 94 18 03/12/22 02:49 98.2 F 91 16 99/57 03/11/22 19:46 97.6 F 82 18 97/62 03/11/22 12:38 93 18 99/54 03/11/22 12:23 92 18 101/62 03/11/22 12:08 90 18 100/56 03/11/22 11:53 92 18 114/64 03/11/22 11:38 88 14 111/61 03/11/22 11:23 89 18 119/59 03/11/22 11:08 94 18 136/70 03/11/22 10:53 96.9 F L 102 H 16 138/68 BP Pulse Ox 03/12/22 07:45 03/12/22 07:41 94 L 03/12/22 07:35 03/12/22 07:00 87/56 90 L 03/12/22 02:49 93 L 03/11/22 19:46 94 L 03/11/22 12:38 96 03/11/22 12:23 96 03/11/22 12:08 99 03/11/22 11:53 99 03/11/22 11:38 100 03/11/22 11:23 99 03/11/22 11:08 93 L 03/11/22 10:53 90 L Intake and Output 03/11/22 03/12/22 03/12/22 22:59 06:59 14:59 Intake Total 240 Output Total 80 Balance -80 240 Intake: Oral 240 Output: Drainage 80 Abdomen 80 Other: Voiding Method Toilet Toilet # Voids 2 2
[2022-03-12] MEDS: ENOXAPARIN 40 MG/0.4 ML SYRINGE SQ SCH (10:14)
[2022-03-12] MEDS: DULoxetine HCL 60 MG CAPSULE.DR PO SCH ×2 (10:14→20:26)
[2022-03-12] MEDS: INSULIN ASPART (NovoLOG) 100 UNIT/ML VIAL SQ SCH ×4 (10:14→21:34)
[2022-03-12] MEDS: DOCUSATE 100 MG CAP PO SCH ×2 (10:14→19:53)
[2022-03-12] MEDS: FLUTICASONE 220 MCG INHALER INHALATION SCH (11:32)
[2022-03-12] MEDS ORDERED: HYDROcodone/APAP 5-325MG 1 EACH TAB PO PRN (11:54)
[2022-03-12 12:17] LABS: Glucose,Whole Blood 207 mg/dL (70-110)
--- NOTE | 2022-03-12 12:49 | P.ANPRN ---
Procedure Note - Anesthesia - Nerve Block Performed Bilateral Transversus Abdominis Single Time Out Performed: Yes Date of Procedure: 03/12/22 Procedure Start Time: 08:43 Procedure Stop Time: 08:53 Location of Patient: PreOp Indication: Acute Post-Operative Pain, Requested by Surgeon Sedation Type: Sedate with meaningful contact maintained Preparation: Sterile Prep Position: Supine Needle Types: Pajunk Needle Gauge: 21 Ultrasound used to visualize needle placement: Yes Ultrasound used to observe medication spread: Yes Blood Aspirated: No Pain Paresthesia on Injection Noted: No Resistance on Injection: Normal Image Stored and Saved: Yes Events: Uneventful and Well Tolerated (ropi .5% 20cc plus dexamethasone 4mg bilaterally)
[2022-03-12] MEDS: LACTATED RINGERS 1,000 ML IV SCH (12:57)
--- NOTE | 2022-03-12 15:42 | P.PN ---
Subjective Progress Note Date: 03/12/22 CHIEF COMPLAINT: Large incisional hernia HISTORY OF PRESENT ILLNESS: Patient postop day #1 status post open repair of incisional hernia with mesh and lysis of extensive adhesions. Patient is sitting up in bed. She does complain of abdominal pain. She is requiring IV pain medication. She did have nausea. Denies any flatus or bowel movement. She has been up and ambulating in the room. Afebrile. PHYSICAL EXAM: VITAL SIGNS: Reviewed. GENERAL: Well-developed in no acute distress. HEENT: No sclera icterus. Extraocular movements grossly intact. Moist buccal mucosa. Head is atraumatic, normocephalic. ABDOMEN: Soft. Nondistended. Incision site clean dry and intact. BRITTA drain with serosanguineous output 80 mL NEUROLOGIC: Alert and oriented. Cranial nerves II through XII grossly intact. ASSESSMENT: 1. Large incisional hernia and extensive adhesions status post open repair of incisional hernia with mesh and lysis of extensive adhesions PLAN: -Change incisional dressing to optifoam silver -Add [place] for pain control -Encouraged patient to use ice as needed -Continue abdominal binder -Continue incentive spirometer -Encouraged patient ambulate -Continue nebulizer treatments -Continue antiemetics as needed -Anticipate discharge tomorrow -DVT prophylaxis Lovenox Physician Cafeteria Clerk note has been reviewed by physician. Signing provider agrees with the documented findings, assessment, and plan of care. Objective - Vital Signs Vital signs: Vital Signs Temp 98.5 F 03/12/22 15:03 Pulse 76 03/12/22 15:03 Resp 18 03/12/22 15:03 BP 90/56 03/12/22 15:03 Pulse Ox 95 03/12/22 15:03 FiO2 Intake & Output 03/11/22 03/12/22 03/12/22 18:59 06:59 18:59 Intake Total 1050 480 Output Total 75 80 80 Balance 975 -80 400 Weight 93.3 kg Intake: IV 1050 Oral 480 Output: Drainage 80 80 Abdomen 80 80 Estimated Blood Loss 75 Other: Voiding Method Toilet # Voids 2 2 - Labs Labs: Abnormal Lab Results - Last 24 Hours (Table) 03/12/22 Range/Units 12:15 POC Glucose (mg/dL) 207 H (70-110) mg/dL
[2022-03-12] MEDS: NICOTINE 21MG/24HR PATCH TRANSDERM SCH (16:43)
[2022-03-12 17:11] LABS: Glucose,Whole Blood 101 mg/dL (70-110)
[2022-03-12] MEDS: QUEtiapine 100 MG TAB PO SCH (20:26)
[2022-03-12 21:15] LABS: Glucose,Whole Blood 147 mg/dL (70-110)
[2022-03-13] MEDS: KETOROLAC 15 MG/ML 1 ML VIAL IVP SCH ×2 (00:22→05:56)
[2022-03-13] MEDS: HYDROmorphone 0.5 MG/0.5 ML SYRINGE IVP PRN ×2 (03:19→10:33)
[2022-03-13 07:13] LABS: Glucose,Whole Blood 121 mg/dL (70-110)
[2022-03-13 07:53] VITALS: BP 111/76; RESP 20; TEMP 98.1
[2022-03-13] MEDS: FLUTICASONE 220 MCG INHALER INHALATION SCH (08:03)
[2022-03-13] MEDS: IPRATROPIUM 0.5 MG/2.5 ML NEBU INHALATION SCH ×2 (08:03→11:22)
[2022-03-13] MEDS: INSULIN ASPART (NovoLOG) 100 UNIT/ML VIAL SQ SCH (08:03)
[2022-03-13 08:07] VITALS: PULSE 80
[2022-03-13] MEDS: LACTATED RINGERS 1,000 ML IV SCH (08:51)
[2022-03-13 09:00] LABS: HCT 35.9 % (37.2-46.3); HGB 10.9 g/dL (12.0-15.0); MCH 28.2 pg (27.0-32.0); MCHC 30.4 g/dL (32.0-37.0); MCV 92.8 fL (80.0-97.0); Mean Platelet Volume 9.6 fL (9.5-12.2); NRBC Per 100 WBC 0 /100 WBCS (0.0-0.0); Platelet Count 283 X 10*3/uL (140-440); RBC 3.87 X 10*6/uL (4.10-5.20); RDW 14.6 % (11.5-14.5); WBC 9.89 X 10*3/uL (4.50-10.00)
[2022-03-13] MEDS ORDERED: PANTOPRAZOLE 40 MG/10 ML VIAL IVP SCH (09:00)
[2022-03-13] MEDS: ENOXAPARIN 40 MG/0.4 ML SYRINGE SQ SCH (09:08)
[2022-03-13] MEDS: NICOTINE 21MG/24HR PATCH TRANSDERM SCH (09:08)
[2022-03-13] MEDS: DOCUSATE 100 MG CAP PO SCH (09:08)
[2022-03-13] MEDS: DULoxetine HCL 60 MG CAPSULE.DR PO SCH (09:08)
[2022-03-13 09:10] LABS: ALT 33 U/L (8-44); AST 27 U/L (13-35); African American GFR (CKD) 108.4 (60.0-200.0); Albumin 3.4 g/dL (3.8-4.9); Albumin/Globulin Ratio 1.89 (1.60-3.17); Alkaline Phosphatase 90 U/L (41-126); Blood Urea Nitrogen 15.4 mg/dL (9.0-27.0); Calcium 8.8 mg/dL (8.7-10.3); Carbon Dioxide 29.6 mmol/L (20.0-27.5); Chloride 102 mmol/L (96-109); Globulin 1.8 g/dL (1.6-3.3); Glucose 103 mg/dL (70-110); Magnesium 2.1 mg/dL (1.5-2.4); Non-African American GFR(CKD) 93.5 (60.0-200.0); Potassium 5.1 mmol/L (3.5-5.5); Sodium 139 mmol/L (135-145); Total Bilirubin <0.15 mg/dL (0.30-1.20); Total Protein 5.2 g/dL (6.2-8.2)
[2022-03-13 11:52] LABS: Glucose,Whole Blood 130 mg/dL (70-110)
--- NOTE | 2022-03-13 11:55 | P.DS ---
Providers Date of admission: 03/12/22 03:21 Expected date of discharge: 03/13/22 Attending physician: Clemente Cacrees Consults: 03/11/22 10:48 Consult Physician Routine Consulting Provider: Keysha Baltazar Consult Reason/Comments: Medical management Do you want consulting provider notified?: Yes Primary care physician: Riley Casas Hospital Course: Discharge diagnosis 1. Large incisional hernia and extensive adhesions status post open repair of incisional hernia with mesh and lysis of extensive adhesions Hospital course This is a 61-year-old female who developed an incisional hernia along her midline incisional scar. Patient is status post open repair of incisional hernia with mesh and lysis of extensive adhesions. Patient tolerated surgery well. Her pain is controlled. She is up and ambulating. She is tolerating diet. She did have a bowel movement and flatus. She is afebrile. Incision sites clean dry and intact. She is stable for discharge. Please refer to chart for any further details. Physician Masonry Installer note has been reviewed by physician. Signing provider agrees with the documented findings, assessment, and plan of care. Patient Condition at Discharge: Stable Plan - Discharge Summary New Discharge Prescriptions: New Ibuprofen [Motrin] 600 mg PO Q8HR PRN #30 tab PRN Reason: Pain Nicotine 21Mg/24Hr Patch [Habitrol] 1 patch TRANSDERM DAILY #30 patch Aspirin EC [Ecotrin Low Dose] 81 mg PO DAILY #30 tab HYDROcodone/APAP 5-325MG [[place] 5-325] 1 tab PO Q6HR PRN 3 Days #12 tab PRN Reason: Pain Docusate [Colace] 100 mg PO BID #60 cap Continue Ipratropium-Albuterol Nebulize [Duoneb 0.5 mg-3 mg/3 ml Soln] 3 ml INHALATION RT-QID PRN PRN Reason: Dyspnea Fluticasone Propionate [Flovent Hfa 220 mcg] 1 puff INHALATION RT-DAILY Benzonatate [Tessalon Perles] 200 mg PO TID PRN #30 cap PRN Reason: Cough [place]/APAP/Caf/Cod [id number] [Fioricet w/Cod 39-868-55-30MG] 1 cap PO Q4HR PRN #21 cap PRN Reason: Migraine Headache Albuterol Sulfate [Proair Hfa] 1 puff INHALATION DIRECTED PRN PRN Reason: sob Tiotropium 18 Mcg/Puff [Spiriva] 1 puff INHALATION DAILY QUEtiapine [SEROquel] 100 mg PO HS DULoxetine HCL [Cymbalta] 60 mg PO BID metFORMIN HCL [Glucophage] 1,000 mg PO BID #60 tab Discontinued Aspirin EC [Ecotrin Low Dose] 81 mg PO DAILY HYDROcodone/APAP 5-325MG [[place] 5-325] 1 each PO Q6HR PRN #21 tab PRN Reason: Pain Discharge Medication List Ipratropium-Albuterol Nebulize [Duoneb 0.5 mg-3 mg/3 ml Soln] 3 ml INHALATION RT-QID PRN 04/22/19 [History] DULoxetine HCL [Cymbalta] 60 mg PO BID 04/12/21 [History] Fluticasone Propionate [Flovent Hfa 220 mcg] 1 puff INHALATION RT-DAILY 04/12/21 [History] QUEtiapine [SEROquel] 100 mg PO HS 04/12/21 [History] Benzonatate [Tessalon Perles] 200 mg PO TID PRN #30 cap 05/11/21 [Rx] Buta/APAP/Caf/Cod 27-037-11-30 [Fioricet w/Cod 05-092-74-30MG] 1 cap PO Q4HR PRN #21 cap 05/11/21 [Rx] metFORMIN HCL [Glucophage] 1,000 mg PO BID #60 tab 05/11/21 [Rx] Albuterol Sulfate [Proair Hfa] 1 puff INHALATION DIRECTED PRN 02/18/22 [History] Tiotropium 18 Mcg/Puff [Spiriva] 1 puff INHALATION DAILY 02/18/22 [History] Aspirin EC [Ecotrin Low Dose] 81 mg PO DAILY #30 tab 03/13/22 [Rx] Docusate [Colace] 100 mg PO BID #60 cap 03/13/22 [Rx] HYDROcodone/APAP 5-325MG [[place] 5-325] 1 tab PO Q6HR PRN 3 Days #12 tab 03/13/22 [Rx] Ibuprofen [Motrin] 600 mg PO Q8HR PRN #30 tab 03/13/22 [Rx] Nicotine 21Mg/24Hr Patch [Habitrol] 1 patch TRANSDERM DAILY #30 patch 03/13/22 [Rx] Follow up Appointment(s)/Referral(s): Clemente Caceres MD [STAFF PHYSICIAN] - 03/18/22 1:50 pm Activity/Diet/Wound Care/Special Instructions: Medicine service to complete discharge med rec No driving while taking [place] No lifting over 10 pounds Shower daily. No soaking or tub baths for 2 weeks Very light activity until you are reevaluated at your follow up appointment with your surgeon Keep a log of BRITTA drain output and bring with you to your follow-up appointment Milk/strip drains 2-3 times a day ok to resume aspirin tomorrow Discharge Disposition: HOME SELF-CARE
--- NOTE | 2022-03-13 14:03 | P.PN ---
Subjective Progress Note Date: 03/13/22 History of Presenting Illness: Patient is a they pleasant 61-year-old female with a past medical history of hyperlipidemia, GERD, seizure disorder, COPD with continued nicotine dependence, and colon cancer status post bowel resection. she is currently admitted under general surgery team status post open hernia repair with mesh placement due to development of an incisional hernia. We were consulted for medical management throughout patient's hospitalization. Physical exam: Patient seen and fully evaluated at bedside this morning. She is postoperative day 2. Patient doing well, reports postoperative pain is controlled, reports passing flatus and states that she was able to have normal bowel movement this morning. Patient denies having any additional complaints or concerns. Vital signs unremarkable. Morning labs reviewed, postoperative hemoglobin stable at 10.9. Patient medically stable for discharge home once cleared by primary admitting general surgery team. Vital signs reviewed and stable. General: Nontoxic, no distress and appears stated age. Derm: Skin warm and dry, normal coloration for ethnicity. Head: Atraumatic, normocephalic and symmetric. Eyes: EOMs intact, no lid lag, and anicteric sclera Mouth: no lip lesions, mucus membranes moist Cardiovascular: regular rate and rhythm with normal S1S2, no murmur, positive posterior tibial pulses bilaterally, and cap refill < 2 seconds. Lungs: Respirations even, regular, and unlabored on room air. Lungs CTA bilaterally, no rhonchi, no rales, no wheezing, and no accessory muscle usage. Abdominal: Soft, hypoactive bowel sounds. Dressing to the midline abdomen clean dry and intact with no signs of bleeding through. BRITTA drain with serosanguineous drainage. Ext: ROM intact. No gross muscle atrophy, no edema, no contractures Neuro: Speech clear, face symmetrical and CN II-XII grossly intact with no noted focal neuro deficits Psych: Alert and oriented to person, place, time, and situation. Appropriate and pleasant affect. Assessment and Plan of Care: Acute blood loss anemia, expected postoperative finding. -Hemoglobin stable at 10.9. Status post open hernia repair with mesh and lysis of adhesions -Management per primary admitting general surgery team including pain management, DVT prophylaxis, postoperative wound care/dressing changes and drain management. -Patient currently and DVT prophylaxis with Lovenox. -Encourage splinting and use of abdominal binder. -Encourage use of incentive spirometry 10-15 times hourly while awake. Sql-[id number] diabetes mellitus -Hold Glucophage in place patient on glycemic protocol with NovoLog sliding scale. -Patient may resume Glucophage upon discharge. History of COPD, not in acute exacerbation -Encourage use of incentive spirometry 10-15 times hourly while awake. -Continue daily Spiriva and as needed DuoNebs for shortness of breath and/or wheezing. -Encourage smoking cessation. -Nicotine patch History of seizure disorder -Patient no longer on antiepileptic medications. Reports last seizure was 2016. -seizure precautions. GERD -PPI with Protonix daily. Anxiety/depression -Continue daily medication regimen with Seroquel. Thank you for allowing us to participate in the care of this pleasant patient. Do not hesitate to contact us with questions. Someone can be reached from the [facility] hospitalist group all hours of the day at [phone] or via [employer]. I reviewed the documentation as provided by the KENNY above, who is the original author of this note. I agree with the documented assessment and plan, with the following changes: none. Objective - Vital Signs Vital signs: Vital Signs Temp 98.1 F 03/13/22 07:00 Pulse 80 03/13/22 08:14 Resp 20 03/13/22 07:00 BP 111/76 03/13/22 07:00 Pulse Ox 98 03/13/22 07:00 FiO2 Intake & Output 03/12/22 03/13/22 03/13/22 18:59 06:59 18:59 Intake Total 720 Output Total 140 30 Balance 580 -30 Intake: Oral 720 Output: Drainage 140 30 Abdomen 140 30 Other: Voiding Method Toilet # Voids 2 2 - Labs CBC & Chem 7: 03/13/22 04:42 03/13/22 04:42 Labs: Abnormal Lab Results - Last 24 Hours (Table) 03/12/22 03/12/22 03/13/22 Range/Units 12:15 21:14 07:11 POC Glucose (mg/dL) 207 H 147 H 121 H (70-110) mg/dL
== END 2022-03-13 13:00 | disposition home or self-care (01) ==
LOC: OR 07:04 → 6NMEDSUR 10:50 → OR 03-12 03:21 → 6NMEDSUR 03-12 03:21
PROVIDERS: ADMIT Surgery; ATTEND Surgery
DX: K43.2 Incisional hernia without obstruction or gangrene (principal); K66.0 Peritoneal adhesions (postprocedural) (postinfection); J44.9 Chronic obstructive pulmonary disease, unspecified; E11.9 Type 2 diabetes mellitus without complications; K21.9 Gastro-esophageal reflux disease without esophagitis; E78.5 Hyperlipidemia, unspecified; G40.909 Epilepsy, unspecified, not intractable, without status epilepticus; F41.9 Anxiety disorder, unspecified; F32.A Depression, unspecified; I25.2 Old myocardial infarction; M19.90 Unspecified osteoarthritis, unspecified site; Z87.01 Personal history of pneumonia (recurrent); G43.909 Migraine, unspecified, not intractable, without status migrainosus; Z85.038 Personal history of other malignant neoplasm of large intestine; Z86.19 Personal history of other infectious and parasitic diseases; Z90.49 Acquired absence of other specified parts of digestive tract; Z98.890 Other specified postprocedural states; F17.200 Nicotine dependence, unspecified, uncomplicated; Z83.6 Family history of other diseases of the respiratory system; Z82.5 Family history of asthma and other chronic lower respiratory diseases; Z82.49 Family history of ischemic heart disease and other diseases of the circulatory system; Z79.84 Long term (current) use of oral hypoglycemic drugs; Z79.82 Long term (current) use of aspirin; Z79.899 Other long term (current) drug therapy
CPT/HCPCS: 94640 ×4; 94760; 64488; 80053; 83735; 85027; 88302; 49561; 49568; G0378 ×2; C1781; S4990 ×2; J2250; J0330; J1100; J2710; J0690; J2405; J1650 ×2; J3010; J2795; J1885 ×3; J2370; C9113; J1170 ×3; J1644; J2001

== ENCOUNTER 2022-05-12 12:00 | Observation (INO) | payer OTHER ==
[2022-05-07 15:09] VITALS: BMI 37.5
[~2022-05-12 12:00] MED LIST changes: +DEXAMETHASONE SOD PHOSPHATE 4 MG/ML 1 ML VIAL IV ONE; +MIDAZOLAM 2 MG/2 ML VIAL IV PRN; +ONDANSETRON 4 MG/2 ML VIAL IVP ONE; +Pre Op ABX Message 1 EACH MISC MISCELLANE ONE; +SCOPOLAMINE 1 MG/72 HR PATCH TRANSDERM ONE
--- NOTE | 2022-05-12 12:02 | P.GSHP ---
History of Present Illness H&P Date: 05/12/22 Chief Complaint: Chronic abdominal wall seroma This [age]-year-old female who presents today for debridement of abdominal wall seroma and placement of wound VAC. Patient's. History of incisional hernia repair. She developed a chronic seroma which is chronic multiple aspirations. The seroma has continued production despite attempts at draining seroma. Past Medical History Past Medical History: Asthma, Cancer, COPD, Diabetes Mellitus, GERD/Reflux, Hyperlipidemia, Myocardial Infarction (AL), Osteoarthritis (OA), Pneumonia, Seizure Disorder Additional Past Medical History / Comment(s): Migraines, hx colon cancer(5 yrs ago), LAST SEIZUE AUG 30, 2016, [place] on EKG, intermittent diarrhea. Last Myocardial Infarction Date:: unknown History of Any Multi-Drug Resistant Organisms: VRE Date of last positivie culture/infection: 08/01/16 MDRO Source:: Abdomen Past Surgical History: Appendectomy, Bowel Resection, Cholecystectomy, Hernia Repair, Tonsillectomy Additional Past Surgical History / Comment(s): Bowel resection with colostomy/later reversed, hernia repair X2. Past Anesthesia/Blood Transfusion Reactions: Previous Problems w/ Anesthesia Additional Past Anesthesia/Blood Transfusion Reaction / Comment(s): "Spinal/epidural anesthesia WITH COLON SURGERY- WHEN THE TUBE WAS REMOVED AIR BUBBLE WENT THE BRAIN, WAS TRANSFERRED TO ICU BECAUSE OF SEIZURES AUG 2016." "I can not have epidural." Past Psychological History: Depression Smoking Status: Current every day smoker Past Alcohol Use History: Rare Additional Past Alcohol Use History / Comment(s): Smokes 1/2 PPD, started smoking age 20. Past Drug Use History: Marijuana Additional Drug Use History / Comment(s): Marijuana use rarely. - Past Family History Mother Family Medical History: No Reported History Father Family Medical History: COPD, Coronary Artery Disease (CAD) Medications and Allergies Home Medications Medication Instructions Recorded Confirmed Type Ipratropium-Albuterol Nebulize 3 ml INHALATION QID 04/22/19 05/07/22 History [Duoneb 0.5 mg-3 mg/3 ml Soln] DULoxetine HCL [Cymbalta] 60 mg PO BID 04/12/21 05/07/22 History Fluticasone Propionate [Flovent 1 puff INHALATION DAILY PRN 04/12/21 05/07/22 History Hfa 220 mcg] QUEtiapine [SEROquel] 100 mg PO HS 04/12/21 05/07/22 History Buta/APAP/Caf/Cod 27-283-43-30 1 cap PO Q4HR PRN #21 cap 05/11/21 05/07/22 Rx [Fioricet w/Cod 09-458-48-30MG] metFORMIN HCL [Glucophage] 1,000 mg PO BID #60 tab 05/11/21 05/07/22 Rx Albuterol Sulfate [Proair Hfa] 1 puff INHALATION DIRECTED PRN 02/18/22 05/07/22 History Aspirin EC [Ecotrin Low Dose] 81 mg PO DAILY #30 tab 03/13/22 05/07/22 Rx HYDROcodone/APAP 5-325MG [[place] 1 tab PO Q6HR PRN 3 Days #12 tab 03/13/22 05/07/22 Rx 5-325] Ibuprofen [Motrin] 600 mg PO Q8HR PRN #30 tab 03/13/22 05/07/22 Rx Ergocalciferol [Vitamin D2 (1250 1,250 mcg PO FR 05/07/22 05/07/22 History Mcg = [id number] Iu)] Allergies Allergy/AdvReac Type Severity Reaction Status Date / Time No Known Allergies Allergy Verified 05/07/22 15:10 Surgical - Exam - General well developed, well nourished, no distress - Eyes PERRL - ENT normal pinna - Neck no masses - Respiratory normal expansion - Cardiovascular Rhythm: regular - Abdomen Lower abdominal wall mass related to seroma Abdomen: soft, non tender Assessment and Plan Assessment: Abdominal wall seroma. We'll perform debridement abdominal wall placement of wound VAC.
[2022-05-12] MEDS: LACTATED RINGERS 1,000 ML IV SCH (12:12)
[2022-05-12 12:40] LABS: Glucose,Whole Blood 115 mg/dL (70-110)
[2022-05-12] MEDS ORDERED: KETOROLAC 15 MG/ML 1 ML VIAL ONE (12:44)
[2022-05-12] MEDS ORDERED: SUCCINYLCHOLINE CHLORIDE 200 MG/10 ML VIAL IV ONE (12:44)
[2022-05-12] MEDS ORDERED: ROCURONIUM 10 MG/ML (5 ML VIAL) IV ONE (12:44)
[2022-05-12] MEDS ORDERED: NEOSTIGMINE 1 MG/ML 10 ML VIAL ONE (12:44)
[2022-05-12] MEDS ORDERED: PROPOFOL 10 MG/ML 20 ML VIAL IV ONE (12:44)
[2022-05-12] MEDS ORDERED: LIDOCAINE 4% LTA KIT (4 ML) TOPICAL ONE (12:44)
[2022-05-12] MEDS ORDERED: LIDOCAINE 2% INJ 20 MG/ML (2 ML VIAL) ONE (12:44)
[2022-05-12] MEDS ORDERED: fentaNYL (PF) 50 MCG/ML 2 ML AMP ONE (12:44)
[2022-05-12] MEDS ORDERED: GLYCOPYRROLATE 0.2 MG/ML 2 ML VIAL ONE (12:44)
[2022-05-12] MEDS ORDERED: MIDAZOLAM 2 MG/2 ML VIAL ONE (12:44)
[2022-05-12] MEDS ORDERED: PHENYLEPHRINE-0.9% NACL SYG 1,000 MCG/10 ML SYRINGE ONE (12:44)
[2022-05-12] MEDS ORDERED: LACTATED RINGERS 1,000 ML IV ONE ×2 (13:27→14:22)
[2022-05-12] MEDS ORDERED: NALOXONE 0.4 MG/ML 1 ML VIAL IV PRN (13:27)
[2022-05-12] MEDS ORDERED: ONDANSETRON 4 MG/2 ML VIAL IVP PRN (13:27)
[2022-05-12] MEDS ORDERED: ACETAMINOPHEN TAB 325 MG TAB PO PRN (13:27)
--- NOTE | 2022-05-12 13:27 | P.OP ---
Date of Procedure: 05/12/22 Preoperative Diagnosis: Abdominal wall seroma Postoperative Diagnosis: Abdominal wall seroma Procedure(s) Performed: Drainage of abdominal wall seroma and placement of wound VAC Anesthesia: EUGENIO Surgeon: Clemente Caceres Estimated Blood Loss (ml): 25 Pathology: other (Seroma culture) Condition: stable Disposition: PACU Description of Procedure: Patient's placed on the operating table in the supine position. She received general anesthesia. Her abdomen was prepped and draped usual fashion. Patient abdominal wall seroma located the lower portion of her incision. The skin was incised a 15 blade and using left cautery the subcutaneous tissues were divided. The seroma cavity is entered. The seroma cavity containing about 500 mL of hemorrhagic fluid. This was aspirated. A culture was taken. The mesh appeared to be completely covered. The wound was irrigated there is no bleeding seen. This point a piece of black foam was cut to an appropriate size. And then the wound VAC was applied. The wound measured approximately 20 x 5 x 5 cm. Patient tolerated procedure well. She was sent to recovery room in stable condition.
[2022-05-12] MEDS: HYDROmorphone 0.5 MG/0.5 ML SYRINGE IVP PRN ×4 (14:00→21:38)
[2022-05-12 14:07] LABS: Glucose,Whole Blood 108 mg/dL (70-110)
[2022-05-12] MEDS ORDERED: FLUTICASONE 220 MCG INHALER INHALATION PRN (16:10)
[2022-05-12] MEDS ORDERED: ALBUTEROL NEBULIZED 2.5 MG/3 ML INHALATION PRN (16:10)
[2022-05-12] MEDS ORDERED: DEXTROSE 50% SYRINGE 50 ML IVP PRN ×2 (16:53)
--- NOTE | 2022-05-12 17:08 | P.CONS ---
History of Present Illness - Reason for Consult Consult date: 05/12/22 Medical Management Requesting physician: Clemente Caceres - History of Present Illness History of Presenting Illness: Patient is a very pleasant 61-year-old female with a past medical history of CAD, colon cancer status post resection with colostomy and reversal, COPD with continued nicotine dependence, eio-mqebvoc-rfltgvptn diabetes mellitus, and hernia with repair 2 with last hernia repair being completed 03/12/22. Patient developed a chronic abdominal wall seroma which failed outpatient draining attempts. Resulting in admission under Gen. surgery team and undergoing sanchez rgical debridement of abdominal wall seroma and placement of wound VAC. We have been consulted for medical management throughout patient's hospitalization. Patient was seen and fully evaluated at the bedside. She reports mild postoperative abdominal pain. She denies having any postoperative nausea, vomiting, or any other complaints at this time. Patient tolerating oral intake. She denies having any headache, lightheadedness, dizziness, chest pain, palpitations, shortness of breath, or experiencing any numbness/tingling/weakness in her extremities. Patient denies history of DVT or PE. Review of systems: Pertinent positives and negatives as discussed in HPI, a complete review of systems was performed and all other systems are negative. Physical exam: Vital signs reviewed and stable. General: Nontoxic, no distress and appears stated age. Derm: Skin warm and dry, normal coloration for ethnicity. Head: Atraumatic, normocephalic and symmetric. Eyes: EOMs intact, no lid lag, and anicteric sclera Mouth: no lip lesions, mucus membranes moist Cardiovascular: regular rate and rhythm with normal S1S2, no murmur, positive posterior tibial pulses bilaterally, and cap refill < 2 seconds. Lungs: Respirations even, regular, and unlabored on room air. Lungs CTA bilaterally, no rhonchi, no rales, no wheezing, and no accessory muscle usage. Abdominal: soft, nontender to palpation, no guarding, no appreciable organomegaly. Large postsurgical incision mid abdomen with wound VAC in place. Ext: ROM intact. No gross muscle atrophy, no edema, no contractures Neuro: Speech clear, face symmetrical and CN II-XII grossly intact with no noted focal neuro deficits Psych: Alert and oriented to person, place, time, and situation. Appropriate and pleasant affect. Assessment and Plan of Care: Status post debridement of abdominal wall seroma and placement of wound VAC -Management per primary admitting Gen. surgery team including DVT prophylaxis, pain management, and wound care. Diabetes mellitus -Hold metformin in place patient on glycemic protocol with NovoLog sliding scale. COPD with continued nicotine dependence -Recommend smoking cessation. -Continue scheduled daily Flovent along with as needed DuoNeb treatments for shortness of breath and/or wheezing. -Encourage incentive spirometry use. Thank you for allowing us to participate in the care of this pleasant patient. Do not hesitate to contact us with questions. Someone can be reached from the [facility] hospitalist group all hours of the day at [phone] or via Offline Media. Past Medical History Past Medical History: Asthma, Cancer, COPD, Diabetes Mellitus, GERD/Reflux, Hyperlipidemia, Myocardial Infarction (IA), Osteoarthritis (OA), Pneumonia, Seizure Disorder Additional Past Medical History / Comment(s): Migraines, hx colon cancer(5 yrs ago), LAST SEIZUE AUG 30, 2016, IA on EKG, intermittent diarrhea. Last Myocardial Infarction Date:: unknown History of Any Multi-Drug Resistant Organisms: VRE Year Discovered:: 08/01/16 MDRO Source:: Abdomen Past Surgical History: Appendectomy, Bowel Resection, Cholecystectomy, Hernia Repair, Tonsillectomy Additional Past Surgical History / Comment(s): Bowel resection with colostomy/later reversed, hernia repair X2. Past Anesthesia/Blood Transfusion Reactions: Previous Problems w/ Anesthesia Additional Past Anesthesia/Blood Transfusion Reaction / Comm: "Spinal/epidural anesthesia WITH COLON SURGERY- WHEN THE TUBE WAS REMOVED AIR BUBBLE WENT THE BRAIN, WAS TRANSFERRED TO ICU BECAUSE OF SEIZURES AUG 2016." "I can not have epidural." Past Psychological History: Depression Smoking Status: Current every day smoker Past Alcohol Use History: Rare Additional Past Alcohol Use History / Comment(s): Smokes 1/2 PPD, started smoking age 20. Past Drug Use History: Marijuana Additional Drug Use History / Comment(s): Marijuana use rarely. - Past Family History Mother Family Medical History: No Reported History Father Family Medical History: COPD, Coronary Artery Disease (CAD) Medications and Allergies Home Medications Medication Instructions Recorded Confirmed Type Ipratropium-Albuterol Nebulize 3 ml INHALATION QID 04/22/19 05/12/22 History [Duoneb 0.5 mg-3 mg/3 ml Soln] DULoxetine HCL [Cymbalta] 60 mg PO BID 04/12/21 05/07/22 History Fluticasone Propionate [Flovent 1 puff INHALATION DAILY PRN 04/12/21 05/12/22 History Hfa 220 mcg] QUEtiapine [SEROquel] 100 mg PO HS 04/12/21 05/12/22 History [place]a/APAP/Caf/Cod 66-868-29-30 1 cap PO Q4HR PRN #21 cap 05/11/21 05/12/22 Rx [Fioricet w/Cod 22-885-36-30MG] metFORMIN HCL [Glucophage] 1,000 mg PO BID #60 tab 05/11/21 05/07/22 Rx Albuterol Sulfate [Proair Hfa] 1 puff INHALATION DIRECTED PRN 02/18/22 05/12/22 History Aspirin EC [Ecotrin Low Dose] 81 mg PO DAILY #30 tab 03/13/22 05/07/22 Rx HYDROcodone/APAP 5-325MG [[place] 1 tab PO Q6HR PRN 3 Days #12 tab 03/13/22 05/12/22 Rx 5-325] Ibuprofen [Motrin] 600 mg PO Q8HR PRN #30 tab 03/13/22 05/07/22 Rx Ergocalciferol [Vitamin D2 (1250 1,250 mcg PO FR 05/07/22 05/12/22 History Mcg = 12013 Iu)] Allergies Allergy/AdvReac Type Severity Reaction Status Date / Time No Known Allergies Allergy Verified 05/12/22 12:25 Physical Exam Vitals: Vital Signs Temp Pulse Pulse Resp BP BP Pulse Ox 05/12/22 14:30 88 16 97/57 100 05/12/22 14:15 81 18 98/66 95 05/12/22 14:00 93 18 92/62 97 05/12/22 13:45 77 18 109/69 99 05/12/22 13:31 98.0 F 101 H 16 113/71 98 05/12/22 12:20 96.9 F L 92 18 120/64 91 L Intake and Output 05/12/22 05/12/22 05/12/22 06:59 14:59 22:59 Intake Total 1100 Output Total 10 Balance 1090 Intake: IV 1100 Output: Estimated Blood Loss 10 Other: Weight 92.3 kg Results Labs: Abnormal Lab Results - Last 24 Hours (Table) 05/12/22 Range/Units 12:35 POC Glucose (mg/dL) 115 H (70-110) mg/dL
[2022-05-12 17:42] LABS: Glucose,Whole Blood 158 mg/dL (70-110)
[2022-05-12] MEDS: KETOROLAC 15 MG/ML 1 ML VIAL IVP SCH (18:12)
[2022-05-12] MEDS: INSULIN ASPART (NovoLOG) 100 UNIT/ML VIAL SQ SCH ×2 (18:13→21:26)
[2022-05-12 19:32] LABS: Glucose,Whole Blood 187 mg/dL (70-110)
[2022-05-12] MEDS: IPRATROPIUM-ALBUTEROL 3 ML NEB INHALATION SCH (19:58)
[2022-05-12 21:10] LABS: Glucose,Whole Blood 197 mg/dL (70-110)
[2022-05-12] MEDS: QUEtiapine 100 MG TAB PO SCH (21:27)
[2022-05-12] MEDS: DULoxetine HCL 60 MG CAPSULE.DR PO SCH (21:27)
[2022-05-13] MEDS: KETOROLAC 15 MG/ML 1 ML VIAL IVP SCH ×5 (00:31→23:57)
[2022-05-13 06:54] LABS: Glucose,Whole Blood 231 mg/dL (70-110)
[2022-05-13] MEDS: INSULIN ASPART (NovoLOG) 100 UNIT/ML VIAL SQ SCH ×4 (07:20→21:48)
[2022-05-13] MEDS: IPRATROPIUM-ALBUTEROL 3 ML NEB INHALATION SCH ×4 (08:50→19:35)
[2022-05-13] MEDS: DULoxetine HCL 60 MG CAPSULE.DR PO SCH ×2 (08:52→21:17)
[2022-05-13 08:53] LABS: HCT 35.8 % (37.2-46.3); HGB 10.7 g/dL (12.0-15.0); MCH 27.1 pg (27.0-32.0); MCHC 29.9 g/dL (32.0-37.0); MCV 90.6 fL (80.0-97.0); Mean Platelet Volume 9.8 fL (9.5-12.2); NRBC Per 100 WBC 0 /100 WBCS (0.0-0.0); Platelet Count 333 X 10*3/uL (140-440); RBC 3.95 X 10*6/uL (4.10-5.20); RDW 13.7 % (11.5-14.5)
[2022-05-13] MEDS: ENOXAPARIN 40 MG/0.4 ML SYRINGE SQ SCH (08:53)
[2022-05-13 09:25] LABS: ALT 23 U/L (8-44); AST 17 U/L (13-35); African American GFR (CKD) 62.8 (60.0-200.0); Albumin 3.8 g/dL (3.8-4.9); Alkaline Phosphatase 101 U/L (41-126); BUN/Creat Ratio 21.55 Ratio (12.00-20.00); Blood Urea Nitrogen 23.7 mg/dL (9.0-27.0); Calcium 9.2 mg/dL (8.7-10.3); Carbon Dioxide 29.9 mmol/L (20.0-27.5); Chloride 100 mmol/L (96-109); Globulin 1.9 g/dL (1.6-3.3); Glucose 184 mg/dL (70-110); Non-African American GFR(CKD) 54.1 (60.0-200.0); Sodium 139 mmol/L (135-145); Total Bilirubin <0.15 mg/dL (0.30-1.20); Total Protein 5.7 g/dL (6.2-8.2)
[2022-05-13] MEDS: LACTATED RINGERS 1,000 ML IV SCH (09:39)
--- NOTE | 2022-05-13 10:34 | P.PN ---
Subjective Progress Note Date: 05/13/22 Physical examination: Patient is a very pleasant 61-year-old female with a past medical history of CAD, colon cancer status post resection with colostomy and reversal, COPD with continued nicotine dependence, jvo-rdckijq-gmqybkwco diabetes mellitus, and hernia with repair 2 with last hernia repair being completed 03/12/22. Patient developed a chronic abdominal wall seroma which failed outpatient draining attempts. Resulting in admission under Gen. surgery team and undergoing surg ical debridement of abdominal wall seroma and placement of wound VAC. We have been consulted for medical management throughout patient's hospitalization. vital signs stable. Wound VAC remains in place. Physical exam: Patient reports controlled postoperative pain rated 4/10 at this time. She has been tolerating oral intake and denies any episodes of nausea or vomiting. Morning labs pending at this time. Discussed with case management they're setting up arrangements for home wound VAC as well as home care.Wound cultures showing no growth to date. Vital signs reviewed and stable. General: Nontoxic, no distress and appears stated age. Derm: Skin warm and dry, normal coloration for ethnicity. Head: Atraumatic, normocephalic and symmetric. Eyes: EOMs intact, no lid lag, and anicteric sclera Mouth: no lip lesions, mucus membranes moist Cardiovascular: regular rate and rhythm with normal S1S2, no murmur, positive posterior tibial pulses bilaterally, and cap refill < 2 seconds. Lungs: Respirations even, regular, and unlabored on room air. Lungs CTA bilaterally, no rhonchi, no rales, no wheezing, and no accessory muscle usage. Abdominal: soft, nontender to palpation, no guarding, no appreciable organomegaly. Large postsurgical incision mid abdomen with wound VAC in place. Ext: ROM intact. No gross muscle atrophy, no edema, no contractures Neuro: Speech clear, face symmetrical and CN II-XII grossly intact with no noted focal neuro deficits Psych: Alert and oriented to person, place, time, and situation. Appropriate and pleasant affect. Assessment and Plan of Care: Status post debridement of abdominal wall seroma and placement of wound VAC -Management per primary admitting Gen. surgery team including DVT prophylaxis, pain management, and wound care. -DVT prophylaxis currently with Lovenox. Diabetes mellitus -Hold metformin in place patient on glycemic protocol with NovoLog sliding scale. COPD with continued nicotine dependence -Recommend smoking cessation. -Continue scheduled daily Flovent along with as needed DuoNeb treatments for shortness of breath and/or wheezing. -Encourage incentive spirometry use. Thank you for allowing us to participate in the care of this pleasant patient. Do not hesitate to contact us with questions. Someone can be reached from the [facility] hospitalist group all hours of the day at [phone] or via perfect serve. Objective - Vital Signs Vital signs: Vital Signs Temp 97.8 F 05/13/22 06:47 Pulse 82 05/13/22 09:02 Resp 12 05/13/22 06:47 BP 98/63 05/13/22 06:57 Pulse Ox 93 L 05/13/22 06:47 FiO2 Intake & Output 05/12/22 05/13/22 05/13/22 18:59 06:59 18:59 Intake Total 1100 Output Total 10 Balance 1090 Weight 92.3 kg Intake: IV 1100 Output: Estimated Blood Loss 10 Other: # Voids 2 - Labs CBC & Chem 7: 05/13/22 05:47 05/13/22 05:47 Labs: Abnormal Lab Results - Last 24 Hours (Table) 05/12/22 05/12/22 05/12/22 Range/Units 12:35 17:40 19:31 WBC (4.50-10.00) X 10*3/uL RBC (4.10-5.20) X 10*6/uL Hgb (12.0-15.0) g/dL Hct (37.2-46.3) % MCHC (32.0-37.0) g/dL Carbon Dioxide (20.0-27.5) mmol/L Anion Gap (10.00-18.00) mmol/L Est GFR (CKD-EPI)NonAf (60.0-200.0) BUN/Creatinine Ratio (12.00-20.00) Ratio Glucose (70-110) mg/dL POC Glucose (mg/dL) 115 H 158 H 187 H (70-110) mg/dL Total Bilirubin (0.30-1.20) mg/dL Total Protein (6.2-8.2) g/dL 05/12/22 05/13/22 05/13/22 Range/Units 21:09 05:47 05:47 WBC 13.90 H (4.50-10.00) X 10*3/uL RBC 3.95 L (4.10-5.20) X 10*6/uL Hgb 10.7 L (12.0-15.0) g/dL Hct 35.8 L (37.2-46.3) % MCHC 29.9 L (32.0-37.0) g/dL Carbon Dioxide 29.9 H (20.0-27.5) mmol/L Anion Gap 9.10 L (10.00-18.00) mmol/L Est GFR (CKD-EPI)NonAf 54.1 L (60.0-200.0) BUN/Creatinine Ratio 21.55 H (12.00-20.00) Ratio Glucose 184 H (70-110) mg/dL POC Glucose (mg/dL) 197 H (70-110) mg/dL Total Bilirubin <0.15 L (0.30-1.20) mg/dL Total Protein 5.7 L (6.2-8.2) g/dL 05/13/22 Range/Units 06:52 WBC (4.50-10.00) X 10*3/uL RBC (4.10-5.20) X 10*6/uL Hgb (12.0-15.0) g/dL Hct (37.2-46.3) % MCHC (32.0-37.0) g/dL Carbon Dioxide (20.0-27.5) mmol/L Anion Gap (10.00-18.00) mmol/L Est GFR (CKD-EPI)NonAf (60.0-200.0) BUN/Creatinine Ratio (12.00-20.00) Ratio Glucose (70-110) mg/dL POC Glucose (mg/dL) 231 H (70-110) mg/dL Total Bilirubin (0.30-1.20) mg/dL Total Protein (6.2-8.2) g/dL Microbiology - Last 24 Hours (Table) 05/12/22 13:19 Anaerobic Culture - Preliminary Abdomen 05/12/22 13:19 Wound Culture - Preliminary Abdomen
[2022-05-13 11:44] LABS: Glucose,Whole Blood 156 mg/dL (70-110)
[2022-05-13] MEDS: HYDROcodone/APAP 5-325MG 1 EACH TAB PO PRN ×2 (11:55→21:23)
--- NOTE | 2022-05-13 15:09 | P.PN ---
Subjective Progress Note Date: 05/13/22 CHIEF COMPLAINT: Abdominal wall seroma HISTORY OF PRESENT ILLNESS: Patient is status post drainage of abdominal wall seroma and placement of wound VAC. Patient is complaining of abdominal pain. She denies any nausea or vomiting. I patient seen this morning in which she had not urinated since last night. Bladder scan was completed which showed urinary retention of 400 mL. Patient did get up to ambulate and then was able to urinate. Patient is afebrile. BP 93/61. WBC is 13.90 Hgb 10.7 platelets 333 sodium is 139 potassium is 5.0 creatinine is 1.1 PHYSICAL EXAM: VITAL SIGNS: Reviewed. GENERAL: Well-developed in no acute distress. HEENT: No sclera icterus. Extraocular movements grossly intact. Moist buccal mucosa. Head is atraumatic, normocephalic. ABDOMEN: Soft. Nondistended. Tenderness around abdominal wound. Wound VAC is in place. Serosanguineous drainage output NEUROLOGIC: Alert and oriented. Cranial nerves II through XII grossly intact. ASSESSMENT: 1. Abdominal wall seroma status post drainage with wound VAC placement PLAN: -resource manager working on arranging wound VAC outpatient -Continue pain medication as needed -Encourage patient to ambulate -Continue to monitor urine output -Continue regular diet -DVT prophylaxis Lovenox and GI prophylaxis Pepcid Physician Director Cardiac note has been reviewed by physician. Signing provider agrees with the documented findings, assessment, and plan of care. I have personally seen and examined the patient, reviewed the [employer] OPERATOR [employer] /PAs history, exam and MDM and agree with the assessment and plan as written. Based on total visit time, I have performed more than 50% of the visit. As above: Patient doing well today. Complaining of some insomnia. Mild discomfort. Wound VAC in place. Continue increasing activity. Change dressing tomorrow. Objective - Vital Signs Vital signs: Vital Signs Temp 98.0 F 05/13/22 14:03 Pulse 73 05/13/22 14:03 Resp 18 05/13/22 14:03 BP 93/61 05/13/22 14:03 Pulse Ox 96 05/13/22 14:03 FiO2 Intake & Output 05/12/22 05/13/22 05/13/22 18:59 06:59 18:59 Intake Total 1100 Output Total 10 Balance 1090 Weight 92.3 kg Intake: IV 1100 Output: Estimated Blood Loss 10 Other: # Voids 2 - Labs CBC & Chem 7: 05/13/22 05:47 05/13/22 05:47 Labs: Abnormal Lab Results - Last 24 Hours (Table) 05/12/22 05/12/22 05/12/22 Range/Units 17:40 19:31 21:09 WBC (4.50-10.00) X 10*3/uL RBC (4.10-5.20) X 10*6/uL Hgb (12.0-15.0) g/dL Hct (37.2-46.3) % MCHC (32.0-37.0) g/dL Carbon Dioxide (20.0-27.5) mmol/L Anion Gap (10.00-18.00) mmol/L Est GFR (CKD-EPI)NonAf (60.0-200.0) BUN/Creatinine Ratio (12.00-20.00) Ratio Glucose (70-110) mg/dL POC Glucose (mg/dL) 158 H 187 H 197 H (70-110) mg/dL Total Bilirubin (0.30-1.20) mg/dL Total Protein (6.2-8.2) g/dL 05/13/22 05/13/22 05/13/22 Range/Units 05:47 05:47 06:52 WBC 13.90 H (4.50-10.00) X 10*3/uL RBC 3.95 L (4.10-5.20) X 10*6/uL Hgb 10.7 L (12.0-15.0) g/dL Hct 35.8 L (37.2-46.3) % MCHC 29.9 L (32.0-37.0) g/dL Carbon Dioxide 29.9 H (20.0-27.5) mmol/L Anion Gap 9.10 L (10.00-18.00) mmol/L Est GFR (CKD-EPI)NonAf 54.1 L (60.0-200.0) BUN/Creatinine Ratio 21.55 H (12.00-20.00) Ratio Glucose 184 H (70-110) mg/dL POC Glucose (mg/dL) 231 H (70-110) mg/dL Total Bilirubin <0.15 L (0.30-1.20) mg/dL Total Protein 5.7 L (6.2-8.2) g/dL 05/13/22 Range/Units 11:43 WBC (4.50-10.00) X 10*3/uL RBC (4.10-5.20) X 10*6/uL Hgb (12.0-15.0) g/dL Hct (37.2-46.3) % MCHC (32.0-37.0) g/dL Carbon Dioxide (20.0-27.5) mmol/L Anion Gap (10.00-18.00) mmol/L Est GFR (CKD-EPI)NonAf (60.0-200.0) BUN/Creatinine Ratio (12.00-20.00) Ratio Glucose (70-110) mg/dL POC Glucose (mg/dL) 156 H (70-110) mg/dL Total Bilirubin (0.30-1.20) mg/dL Total Protein (6.2-8.2) g/dL Microbiology - Last 24 Hours (Table) 05/12/22 13:19 Gram Stain - Preliminary Abdomen Wound Culture - Preliminary 05/12/22 13:19 Anaerobic Culture - Preliminary Abdomen
[2022-05-13 17:37] LABS: Glucose,Whole Blood 207 mg/dL (70-110)
[2022-05-13] MEDS: QUEtiapine 100 MG TAB PO SCH (21:17)
[2022-05-13] MEDS: FAMOTIDINE 20 MG TAB PO SCH (21:17)
[2022-05-13 21:49] LABS: Glucose,Whole Blood 147 mg/dL (70-110)
[2022-05-13] MEDS ORDERED: ZOLPIDEM 5 MG TAB PO PRN (22:18)
[2022-05-13] MEDS ORDERED: MELATONIN 5 MG TABLET PO PRN (22:26)
[2022-05-14 04:15] VITALS: RESP 18
[2022-05-14] MEDS: KETOROLAC 15 MG/ML 1 ML VIAL IVP SCH ×2 (06:39→11:43)
[2022-05-14] MEDS: INSULIN ASPART (NovoLOG) 100 UNIT/ML VIAL SQ SCH ×2 (06:43→11:43)
[2022-05-14 06:45] LABS: Glucose,Whole Blood 113 mg/dL (70-110)
[2022-05-14 06:48] VITALS: BP 109/71; TEMP 97.8
[2022-05-14] MEDS: HYDROcodone/APAP 5-325MG 1 EACH TAB PO PRN (08:12)
[2022-05-14] MEDS: DULoxetine HCL 60 MG CAPSULE.DR PO SCH (08:13)
[2022-05-14] MEDS: ENOXAPARIN 40 MG/0.4 ML SYRINGE SQ SCH (08:13)
[2022-05-14] MEDS: FAMOTIDINE 20 MG TAB PO SCH (08:13)
[2022-05-14] MEDS: IPRATROPIUM-ALBUTEROL 3 ML NEB INHALATION SCH ×2 (08:28→11:58)
[2022-05-14 08:39] VITALS: PULSE 72
[2022-05-14] MEDS: LACTATED RINGERS 1,000 ML IV SCH (09:13)
--- NOTE | 2022-05-14 11:13 | P.DS ---
Providers Date of admission: 05/12/22 22:00 Expected date of discharge: 05/14/22 Attending physician: Clemente Caceres Consults: 05/12/22 13:27 Consult Physician Routine Consulting Provider: Keysha Baltazar Consult Reason/Comments: Medical management Do you want consulting provider notified?: Yes Primary care physician: Eddie Corea MD Hospital Course: Discharge diagnosis 1. Abdominal wall seroma status post drainage with wound VAC placement Hospital course This is a 63-year-old female with a chronic abdominal wall seroma that developed after incisional hernia repair. She is status post drainage of seroma with wound VAC placement. Patient has wound VAC in place. Patient reports her pain is controlled. She is tolerating diet. She is afebrile. She has been up and ambulating. She is urinating without difficulty. She is having flatus. She is stable for discharge. Patient has home care and outpatient wound VAC arranged. Patient seen and examined with Dr. Caceres Physician Web Operations Manager note has been reviewed by physician. Signing provider agrees with the documented findings, assessment, and plan of care. Patient Condition at Discharge: Stable Plan - Discharge Summary Discharge Rx Participant: No New Discharge Prescriptions: New HYDROcodone/APAP 5-325MG [[place] 5-325] 1 tab PO Q6HR PRN 3 Days #12 tab PRN Reason: Pain Continue Ipratropium-Albuterol Nebulize [Duoneb 0.5 mg-3 mg/3 ml Soln] 3 ml INHALATION QID Fluticasone Propionate [Flovent Hfa 220 mcg] 1 puff INHALATION DAILY PRN PRN Reason: Shortness Of Breath [place]/APAP/Caf/Cod [id number] [Fioricet w/Cod 35-325-79-30MG] 1 cap PO Q4HR PRN #21 cap PRN Reason: Migraine Headache Albuterol Sulfate [Proair Hfa] 1 puff INHALATION DIRECTED PRN PRN Reason: Shortness Of Breath Ibuprofen [Motrin] 600 mg PO Q8HR PRN #30 tab PRN Reason: Pain Aspirin EC [Ecotrin Low Dose] 81 mg PO DAILY #30 tab Ergocalciferol [Vitamin D2 (1250 Mcg = 69777 Iu)] 1,250 mcg PO FR Simvastatin 40 mg PO QUEtiapine [SEROquel] 100 mg PO HS DULoxetine HCL [Cymbalta] 60 mg PO BID metFORMIN HCL [Glucophage] 1,000 mg PO BID #60 tab Discontinued HYDROcodone/APAP 5-325MG [[place] 5-325] 1 tab PO Q6HR PRN 3 Days #12 tab PRN Reason: Pain Discharge Medication List Ipratropium-Albuterol Nebulize [Duoneb 0.5 mg-3 mg/3 ml Soln] 3 ml INHALATION QID 04/22/19 [History] DULoxetine HCL [Cymbalta] 60 mg PO BID 04/12/21 [History] Fluticasone Propionate [Flovent Hfa 220 mcg] 1 puff INHALATION DAILY PRN 04/12/21 [History] QUEtiapine [SEROquel] 100 mg PO HS 04/12/21 [History] Buta/APAP/Caf/Cod [id number] [Fioricet w/Cod 73-831-73-30MG] 1 cap PO Q4HR PRN #21 cap 05/11/21 [Rx] metFORMIN HCL [Glucophage] 1,000 mg PO BID #60 tab 05/11/21 [Rx] Albuterol Sulfate [Proair Hfa] 1 puff INHALATION DIRECTED PRN 02/18/22 [History] Aspirin EC [Ecotrin Low Dose] 81 mg PO DAILY #30 tab 03/13/22 [Rx] Ibuprofen [Motrin] 600 mg PO Q8HR PRN #30 tab 03/13/22 [Rx] Ergocalciferol [Vitamin D2 (1250 Mcg = 62433 Iu)] 1,250 mcg PO FR 05/07/22 [History] Simvastatin 40 mg PO 05/12/22 [History] HYDROcodone/APAP 5-325MG [[place] 5-325] 1 tab PO Q6HR PRN 3 Days #12 tab 05/14/22 [Rx] Follow up Appointment(s)/Referral(s): [facility], [NON-STAFF] - 1 Week Clemente Caceres MD [STAFF PHYSICIAN] - 05/20/22 2:30 pm Patient Instructions/Handouts: *Surgery [facility] - Scopalamine Patch Instructions Activity/Diet/Wound Care/Special Instructions: Wound Vac was delivered to bedside (05.14.22) with supplies and instructions for returning wound vac when services are no longer needed. No driving while taking [place] No lifting over 10 pounds You may shower. No soaking or tub baths for 2 weeks Very light activity until you are reevaluated at your follow up appointment with your surgeon Discharge Disposition: HOME WITH HOME HEALTH SERVICES
[2022-05-14 11:43] LABS: Glucose,Whole Blood 113 mg/dL (70-110)
--- NOTE | 2022-05-14 12:07 | P.PN ---
Subjective Progress Note Date: 05/14/22 Patient is a very pleasant 61-year-old female with a past medical history of CAD, colon cancer status post resection with colostomy and reversal, COPD with continued nicotine dependence, fii-zmftmhx-yitvxegtk diabetes mellitus, and hernia with repair 2 with last hernia repair being completed 03/12/22. Patient developed a chronic abdominal wall seroma which failed outpatient draining attempts. Resulting in admission under Gen. surgery team and undergoing surgical debridement of abdominal wall seroma and placement of wound VAC. We have been consulted for medical management throughout patient's hospitalization. Patient reports well controlled pain in her abdomen, 6/10 in severity. No nausea or vomiting. No fever or chills. Wound vac in place. Vital signs reviewed and stable. General: Nontoxic, no distress and appears stated age. Derm: Skin warm and dry Head: Atraumatic, normocephalic and symmetric. Eyes: EOMI, no lid lag, and anicteric sclera Mouth: no lip lesions, mucus membranes moist Cardiovascular: regular rate and rhythm with normal S1S2, no murmur Lungs: CTA bilaterally, no rhonchi, no rales, no wheezing, no accessory muscle usage. Abdominal: Large postsurgical incision mid abdomen with wound VAC in place. Ext: ROM intact. No gross muscle atrophy, no edema, no contractures Neuro: no noted focal neuro deficits Psych: Appropriate and pleasant affect. Leukocytosis -Wound culture negative. -Likely reactive. -No signs of active infection. Acute blood loss anemia -Hemoglobin 10.7 -Expected result of surgery -No active signs of bleeding Diabetes mellitus -Hold metformin in place patient on glycemic protocol with NovoLog sliding scale. COPD with continued nicotine dependence -Recommend smoking cessation. -Continue scheduled daily Flovent along with as needed DuoNeb treatments for shortness of breath and/or wheezing. -Encourage incentive spirometry use. Status post debridement of abdominal wall seroma and placement of wound VAC -Management per primary admitting Gen. surgery team including DVT prophylaxis, pain management, and wound care. -DVT prophylaxis currently with Lovenox. Thank you for allowing us to participate in the care of this pleasant patient. She is medically cleared for discharge. Do not hesitate to contact us with questions. Objective - Vital Signs Vital signs: Vital Signs Temp 97.8 F 05/14/22 06:46 Pulse 72 05/14/22 08:38 Resp 18 05/14/22 02:21 BP 109/71 05/14/22 06:46 Pulse Ox 92 L 05/14/22 02:21 FiO2 Intake & Output 05/13/22 05/14/22 05/14/22 18:59 06:59 18:59 Other: # Voids 2 1 - Labs CBC & Chem 7: 05/13/22 05:47 05/13/22 05:47 Labs: Abnormal Lab Results - Last 24 Hours (Table) 05/13/22 05/13/22 05/14/22 Range/Units 17:36 21:47 06:42 POC Glucose (mg/dL) 207 H 147 H 113 H (70-110) mg/dL 05/14/22 Range/Units 11:42 POC Glucose (mg/dL) 113 H (70-110) mg/dL Microbiology - Last 24 Hours (Table) 05/12/22 13:19 Gram Stain - Preliminary Abdomen Wound Culture - Preliminary
[2022-05-15] MEDS ORDERED: FAMOTIDINE 20 MG TAB PO SCH (09:00)
[2022-05-16] MEDS ORDERED: ERGOCALCIFEROL 1,250 MCG (50,000 IU) CAPSULE PO SCH (09:00)
== END 2022-05-14 12:58 | disposition home health service (06) ==
LOC: OR 12:00 → 6NMEDSUR 13:31 → OR 22:00 → 6NMEDSUR 22:00
PROVIDERS: ADMIT Surgery; ATTEND Surgery
DX: L76.34 Postprocedural seroma of skin and subcutaneous tissue following other procedure (principal); D62 Acute posthemorrhagic anemia; D72.829 Elevated white blood cell count, unspecified; J44.9 Chronic obstructive pulmonary disease, unspecified; E11.9 Type 2 diabetes mellitus without complications; K21.9 Gastro-esophageal reflux disease without esophagitis; E78.5 Hyperlipidemia, unspecified; I25.2 Old myocardial infarction; F32.A Depression, unspecified; G40.909 Epilepsy, unspecified, not intractable, without status epilepticus; F17.200 Nicotine dependence, unspecified, uncomplicated; F12.90 Cannabis use, unspecified, uncomplicated; Z85.038 Personal history of other malignant neoplasm of large intestine; Z90.49 Acquired absence of other specified parts of digestive tract; Z82.49 Family history of ischemic heart disease and other diseases of the circulatory system; Z82.5 Family history of asthma and other chronic lower respiratory diseases; Z79.899 Other long term (current) drug therapy; Z79.51 Long term (current) use of inhaled steroids; Z79.84 Long term (current) use of oral hypoglycemic drugs; Z79.82 Long term (current) use of aspirin
CPT/HCPCS: 96376 ×2; 96372 ×2; 96374; 94640 ×4; 80053; 85027; 87070; 87205; 87075; 10140; G0378 ×3; J2250; J0330; J1100; J2710; J0690; J2405; J1650 ×2; J3010; J1885 ×3; J2370; J2704; J1170; J1644; J2001

== ENCOUNTER → 2022-10-08 | Outpatient (CLI) | payer OTHER ==
--- NOTE | 2022-10-08 12:40 | CT ---
CT CHEST FOR PULMONARY EMBOLISM. EXAMINATION TYPE: CT chest wo con DATE OF EXAM: 10/08/2022 INDICATION: Lung nodule, history of colon cancer CT DLP: 537.60 mGycm, Automated exposure control for dose reduction was used. CONTRAST: Patient injected with 0 mL of Isovue 300. COMPARISON: 09/16/2014, 09/16/2019 TECHNIQUE: CT of the chest is performed on a spiral scan at 2 mm thick sections. Reconstructed images in the coronal plane are reviewed. FINDINGS: No mediastinal or hilar adenopathy enlarged by CT criteria is evident. There is a 0.9 cm lymph node i n the pretracheal space. The ascending aorta diameter at the level of the main pulmonary artery is 3 .3 cm. The main pulmonary artery diameter at the bifurcation is 2.7 cm. Mild coronary artery calcification is present. There appears to be a mild pericardial effusion. A 1.4 x 0.8 x 1.1 cm nodular densities in the lower lung field. Series 4 image 39 series 6 image 82. This appears slightly larger than the [address] section through the upper abdomen. Multiple calcifications are within the right renal destiny ex. IMPRESSIONS: 1. 1.4 cm nodule right lower lung field. PET/CT is recommended for additional evaluation. 2. Mild pericardial effusion.
== END | disposition home or self-care (01) ==
LOC: RADCTMAIN 08:35
PROVIDERS: ATTEND Internal Medicine
DX: I31.39 Other pericardial effusion (noninflammatory) (principal); R91.1 Solitary pulmonary nodule
CPT/HCPCS: 71250

== ENCOUNTER → 2022-10-10 | Outpatient (CLI) | payer OTHER ==
--- NOTE | 2022-10-10 14:21 | BD ---
EXAMINATION TYPE: Axial Bone Density DATE OF EXAM: 10/10/2022 CLINICAL HISTORY: 61 years old Female. ICD-10 CODE: U70112 POST CELESTINO Height: 5 ft 2 1/2 in Weight: 205 FRAX RISK QUESTIONS: Alcohol (3 or more units per day): no Family History (Parent hip fracture): no Glucocorticoids (More than 3mos): no (Ex: prednisone, prednisolone, methylprednisolone, dexamethasone, and hydrocortisone). History of Fracture in Adulthood: yes Secondary Osteoporosis: 1. Type 1 Diabetes: no 2. Hyperthyroidism: no 3. Menopause before 45: no 4. Malnutrition: no 5. Chronic liver disease: no Rheumatoid Arthritis: no Current Tobacco Use: yes RISK FACTORS HISTORY OF: Surgery to Spine/Hip(right/left)/Wrist (right/left): no Family History of Osteoporosis: no Active: yes Diet low in dairy products/other sources of calcium: no Postmenopausal woman: yes Take estrogen and/or progesterone medications: no Lost more than 2 inches in height since high school: no Frequent falls: no Poor Health: fair Hyperparathyroidism: no Adrenal Insufficiency: no MEDICATIONS: Additional Medications: aspirin, atorvastatin, duloxetine, Flovent, albuterol, metformin, quetiap ine, Spiriva, , ventolin, Additional History EXAM MEASUREMENTS: Bone mineral densitometry was performed using the [employer] System. Bone mineral density as measured about the Lumbar spine is: ----- L1-L4(G/cm2): 1.031 T Score Values are as follows: ----- L1: -1.1 ----- L2: -1.2 ----- L3: -1.9 ----- L4: -0.8 ----- L1-L4: -1.2 Z Score Values are as follows: ----- L1: -0.7 ----- L2: -0.8 ----- L3: -1.5 ----- L4: -0.4 ----- L1-L4: -0.8 baseline Bone mineral density about the R hip (g/cm2): 0.863 Bone mineral density about the L hip (g/cm2): 0.789 T Score values are as follows: -----R Neck: -1.3 -----L Neck: -1.8 -----R Total: -1.0 -----L Total: -1.2 Z Score values are as follows: -----R Neck: -0.5 -----L Neck: -1.1 -----R Total: -0.7 -----L Total: -0.8 baseline FRAX%s: The graph provided illustrates a 14.8 % chance for a major osteoporotic fx and a 2.8 % chance for the hips probability for fx in 10 years time. IMPRESSION: Osteopenia (T Score between -2.5 and -1). There is slightly increased risk of fracture and the patient may be considered for treatment. Re-Screen 2-5 years. NOTE: T-SCORE=SD OF THE YOUNG ADULT MEAN.
--- NOTE | 2022-10-13 15:31 | MM ---
Reason for Exam: Screening (asymptomatic). Last mammogram was performed 17 year(s) and 2 month(s) ago. Patient History: Menarche at age 13. First Full-Term at age 41. Late child-bearing (after 30). Postmenopausal. Maternal aunt had breast cancer at or over age 50. Maternal aunt had breast cancer at or over age 50. Risk Values: Ivis 5 year model risk: 2.0%. NCI Lifetime model risk: 9.7%. Prior Study Comparison: 11/21/2003 Bilateral Screening Mammogram, [facility]. 12/08/2003 Left Special View Mammogram, [facility]. 08/06/2005 Bilateral Screening Mammogram, [facility]. Tissue Density: There are scattered fibroglandular densities. Findings: Analyzed By CAD. There is no suspicious group of microcalcifications or new suspicious mass in either breast. Overall Assessment: Benign, BI-RAD 2 Management: Screening Mammogram of both breasts in 1 year. A clinical breast exam by your physician is recommended on an annual basis and results should be correlated with mammographic findings. Electronically signed and approved by: Ant Ram M.D. Radiologis
== END | disposition home or self-care (01) ==
LOC: RADBDWWP 13:10
PROVIDERS: ATTEND Internal Medicine
DX: Z12.31 Encounter for screening mammogram for malignant neoplasm of breast (principal); Z13.820 Encounter for screening for osteoporosis; M85.89 Other specified disorders of bone density and structure, multiple sites; Z78.0 Asymptomatic menopausal state; Z80.3 Family history of malignant neoplasm of breast
CPT/HCPCS: 77063; 77067; 77080

== ENCOUNTER → 2022-10-18 | Outpatient (CLI) | payer OTHER ==
--- NOTE | 2022-10-18 22:55 | PE ---
EXAMINATION TYPE: PET CT fusion skull to thigh DATE OF EXAM: 10/18/2022 COMPARISON: Chest CT October 08, 2022 and older CTs HISTORY: Abnormal CT, solitary pulmonary nodule. TECHNIQUE: Following the intravenous administration of 11.9 mCi of F-18 FDG, whole body images are p erformed from the skull base to the midthigh. Images are reviewed on the computer in the coronal, ax ial, and sagittal planes. Reconstructed rotating images are created on independent workstation and r eviewed on the computer. A localization and attenuation correction CT is performed in conjunction w ith the PET scan. Blood glucose level equals 143 SCAN: Initial Scan FINDINGS: SKULL BASE AND NECK: No areas of abnormal hypermetabolic uptake. CHEST, MEDIASTINUM, AND HILAR REGION: Stable 10 x 6 mm right lower lobe nodule axial image 103 shows no abnormal hypermetabolic uptake. No abnormal hypermetabolic uptake. ABDOMEN AND PELVIS: Prominent bowel uptake is nonspecific. No abnormal hypermetabolic uptake in the r ight aspect of the uterus corresponds to a hyperdense mass on 2019 CT abdomen and pelvis study. Consi jeny pelvic ultrasound to better evaluate and characterize. OSSEOUS STRUCTURES: No areas of abnormal hypermetabolic uptake. OTHER CT: Coronary artery calcification is redemonstrated. Stable small to tiny pericardial effusion. Liver remains diffusely low dense consistent with diffuse fatty infiltration. Cholecystectomy clips a re redemonstrated. Surgical clips from ventral wall hernia repair surgery in the anterior abdominal w all are redemonstrated. Surgical sutures sigmoid colon in the pelvis are again seen. Scattered tiny p elvic phleboliths are present. Underlying scoliosis again seen. IMPRESSION: 1. No abnormal hypermetabolic uptake in the slow-growing 10 x 6 mm right lower lobe nodule which was present in 2015 but now increased in size. A low-grade neoplasm not entirely excluded. 2. Focal abnormal hypermetabolic uptake right aspect of uterus corresponds to hyperdense mass on 2019 CT. Consider pelvic ultrasound to further evaluate.
== END | disposition home or self-care (01) ==
LOC: RADPETMAIN 07:39
PROVIDERS: ATTEND Internal Medicine
DX: R91.1 Solitary pulmonary nodule (principal)
CPT/HCPCS: 78815; A9552

== ENCOUNTER → 2022-10-29 | Outpatient (CLI) | payer OTHER | LOC: CPPFTMAIN 10:26 | PROVIDERS: ATTEND Internal Medicine | DX: J44.9 Chronic obstructive pulmonary disease, unspecified (principal); F17.200 Nicotine dependence, unspecified, uncomplicated | CPT/HCPCS: 94060; 94726; 94729 ==

== ENCOUNTER → 2022-11-19 | Outpatient (CLI) | payer OTHER ==
--- NOTE | 2022-11-19 09:23 | US ---
EXAMINATION TYPE: US pelvis complete transvag DATE OF EXAM: 11/19/2022 COMPARISON: 10/18/2022 PET/CT. CLINICAL INDICATION: Female, 61 years old with history of D25.9 UTERINE FIBROID; Hx colon cancer. Im aging modality showed uterine lesion. TECHNIQUE: Transvaginal (TV) and Transabdominal (TA) . Transabdominal sonographic images of the pel vis were acquired. Transvaginal sonographic images were medically necessary to better assess the fol lowing anatomy: Ovaries Date of LMP: MAGICIAN/ILLUSIONIST, EXAM MEASUREMENTS: Uterus: 6.3 x 4.6 x 4.2 cm Endometrial Stripe: 0.3 cm Right Ovary: 2.3 x 1.7 x 1.1 cm Left Ovary: 3.0 x 1.1 x 1.3 cm 1. Uterus: Retroverted Right fundal hypoechoic lesion = 2.5 x 2.4 x 2.2 2. Endometrium: wnl 3. Right Ovary: wnl 4. Left Ovary: wnl 5. Bilateral Adnexa: wnl 6. Posterior cul-de-sac: no free fluid IMPRESSION: 1. Uterine fibroid. 2. Endometrium within normal limits for thickness.
== END | disposition home or self-care (01) ==
LOC: RADUSWWP 08:21
PROVIDERS: ATTEND Internal Medicine
DX: D25.9 Leiomyoma of uterus, unspecified (principal)
CPT/HCPCS: 76830; 76856

== ENCOUNTER 2022-12-08 10:56 | Day surgery (SDC) | payer OTHER ==
[2022-12-04 14:33] VITALS: BMI 38.4
[2022-12-08] MEDS ORDERED: LACTATED RINGERS 1,000 ML IV SCH (11:04)
[2022-12-08] MEDS ORDERED: LIDOCAINE 1% (10MG/ML) FOR IV START INTRADERMA PRN (11:04)
[2022-12-08 11:15] VITALS: TEMP 97.4
[2022-12-08 11:27] LABS: Glucose,Whole Blood 110 mg/dL (70-110)
[2022-12-08] MEDS ORDERED: PROPOFOL 10 MG/ML 20 ML VIAL IV ONE (12:15)
[2022-12-08] MEDS ORDERED: GLYCOPYRROLATE 0.2 MG/ML 2 ML VIAL ONE (12:15)
[2022-12-08 12:33] VITALS: RESP 16
--- NOTE | 2022-12-08 12:33 | P.OP ---
Date of Procedure: 12/08/22 Preoperative Diagnosis: History of colon: Polyps Postoperative Diagnosis: Right colon polyp, transverse colon polyp, diverticulosis Procedure(s) Performed: Colonoscopy Anesthesia: MAC Surgeon: Clemente Caceres Pathology: other (Mannie polyps) Condition: stable Disposition: PACU Description of Procedure: Patient's placed on the endoscopy table in the lateral position. She received IV sedation. Digital rectal exam was performed. This revealed no abnormalities. Flexible colonoscope was then placed patient anus and passed throughout the entire colon. The ileocecal valve was visualized. The cecum appeared normal. Just above the cecum there was a sessile polyp seen was removed with the snare. There a few scattered diverticula in the right colon. In the proximal transverse colon polyp was seen snare and forcep. The scope was then withdrawn remainder of the transverse colon appeared normal. In the descending colon was a few scattered diverticula. Patient previous sigmoid resection. He colorectal anastomosis visualized. This appeared normal. The rectum appeared normal. Scope withdrawn for patient.
[2022-12-08 12:53] VITALS: BP 100/71; PULSE 90
== END 2022-12-08 13:11 | disposition home or self-care (01) ==
LOC: ORWHC2ENDO 10:56
PROVIDERS: ATTEND Surgery
DX: Z12.11 Encounter for screening for malignant neoplasm of colon (principal); D12.3 Benign neoplasm of transverse colon; K57.30 Diverticulosis of large intestine without perforation or abscess without bleeding; I25.2 Old myocardial infarction; E78.5 Hyperlipidemia, unspecified; J44.9 Chronic obstructive pulmonary disease, unspecified; F17.210 Nicotine dependence, cigarettes, uncomplicated; E11.9 Type 2 diabetes mellitus without complications; F41.8 Other specified anxiety disorders; G43.909 Migraine, unspecified, not intractable, without status migrainosus; K21.9 Gastro-esophageal reflux disease without esophagitis; Z86.010 Personal history of colon polyps; Z79.84 Long term (current) use of oral hypoglycemic drugs; Z79.899 Other long term (current) drug therapy; Z79.51 Long term (current) use of inhaled steroids
CPT/HCPCS: 45385; J2704; 88305

== ENCOUNTER → 2023-04-28 | Outpatient (CLI) | payer OTHER ==
--- NOTE | 2023-04-29 22:43 | US ---
EXAMINATION TYPE: US kidneys/renal and bladder DATE OF EXAM: 04/28/2023 COMPARISON: NONE CLINICAL INDICATION: Female, 62 years old with history of R93.89 ABNORMAL FINDINGS ON DX IMAGING; f/u to ct scan EXAM MEASUREMENTS: Right Kidney: 9.2 x 4.9 x 4.8 cm Left Kidney: 10.5 x 5.6 x 4.7 cm Right Kidney: Echogenic areas seen. This could be related to renal stone such as from scarring. Defin ite mass is not identified. The upper pole does appear to be atrophic similar in appearance to the CT . Left Kidney: No hydronephrosis or masses seen Bladder: anechoic Bilateral Jets seen: No IMPRESSION: Atrophy of the superior pole right kidney
== END | disposition home or self-care (01) ==
LOC: RADUSWWP 16:21
PROVIDERS: ATTEND Internal Medicine
DX: N26.1 Atrophy of kidney (terminal) (principal); R93.89 Abnormal findings on diagnostic imaging of other specified body structures
CPT/HCPCS: 76770

== ENCOUNTER 2023-08-25 21:49 | Inpatient (IN) | payer OTHER ==
--- NOTE | 2023-08-25 22:24 | XR ---
EXAMINATION TYPE: XR chest 2V DATE OF EXAM: 08/25/2023 COMPARISON: Chest CT April 20, 2023 HISTORY: Fever and cough and congestion TECHNIQUE: Frontal and lateral views of the chest are obtained. FINDINGS: There is mild chronic parenchymal change without suspicious new focal air space opacity, p leural effusion, or pneumothorax seen. The cardiac silhouette size is stable and within normal limit s. The osseous structures are intact. IMPRESSION: No acute pulmonary process.
[2023-08-26] MEDS ORDERED: IPRATROPIUM-ALBUTEROL 3 ML NEB INHALATION STA (00:35)
[2023-08-26] MEDS: SODIUM CHLORIDE 0.9% 1,000 ML IV ONE (01:03)
[2023-08-26] MEDS: ONDANSETRON 4 MG/2 ML VIAL IVP STA (01:03)
[2023-08-26] MEDS: KETOROLAC 15 MG/ML 1 ML VIAL IVP STA (01:05)
[2023-08-26] MEDS: methylPREDNISolone SOD SUCCI 125 MG/2 ML VIAL IVP ONE (01:07)
[2023-08-26] MEDS: ALBUTEROL HFA INHALER INHALATION STA (01:14)
[2023-08-26] MEDS: HYDROmorphone 1 MG/ML 1 ML SYRINGE IVP STA (02:07)
[2023-08-26 02:25] LABS: Basophils % (A) 0 %; Eosinophils % (A) 0 %; HCT 37.8 % (34.0-46.0); HGB 12.3 gm/dL (11.4-16.0); Lymphocytes # (A) 0.5 k/uL (1.0-4.8); Lymphocytes % (A) 9 %; MCH 29.1 pg (25.0-35.0); MCHC 32.6 g/dL (31.0-37.0); MCV 89.1 fL (80.0-100.0); Mean Platelet Volume 7.3; Monocytes # (A) 0.4 k/uL (0-1.0); Monocytes % (A) 7 %; Neutrophils # (A) 4.1 k/uL (1.3-7.7); Neutrophils % (A) 81 %; Platelet Count 228 k/uL (150-450); RBC 4.25 m/uL (3.80-5.40); RDW 13.8 % (11.5-15.5)
[2023-08-26 02:34] LABS: ALT 29 U/L (4-34); AST 32 U/L (14-36); African American GFR (CKD) >90 (>60 ml/min/1.73 sqM); Albumin 3.8 g/dL (3.5-5.0); Alkaline Phosphatase 90 U/L (38-126); Anion Gap 6 mmol/L; Blood Urea Nitrogen 11 mg/dL (7-17); Calcium 8.5 mg/dL (8.4-10.2); Carbon Dioxide 25 mmol/L (22-30); Chloride 102 mmol/L (98-107); Glucose 173 mg/dL (74-99); Non-African American GFR(CKD) >90 (>60 ml/min/1.73 sqM); Potassium 4.1 mmol/L (3.5-5.1); Sodium 133 mmol/L (137-145); Total Bilirubin 0.3 mg/dL (0.2-1.3); Total Protein 5.9 g/dL (6.3-8.2)
[2023-08-26] MEDS ORDERED: NALOXONE 0.4 MG/ML 1 ML VIAL IV PRN (03:12)
[2023-08-26] MEDS ORDERED: IBUPROFEN 400 MG TAB PO PRN (03:12)
--- NOTE | 2023-08-26 03:28 | ED ---
URI HPI - General Chief Complaint: Upper Respiratory Infection Stated Complaint: Migraine,Vomiting Time Seen by Provider: 08/26/23 00:29 Source: patient Mode of arrival: ambulatory Limitations: no limitations - History of Present Illness Initial Comments: 62-year-old female presenting with chief complaint of cough. Patient is a current smoker and has history of COPD. She states that over the last 2 days she has had worsening cough, shortness of breath, congestion, body aches, fever, and headache. Patient has been using her rescue inhaler without much improvement. Admits to nausea, vomiting. she normally wears 2 L of oxygen only at nighttime. Denies chest pain, numbness, tingling, weakness, abdominal pain, hemoptysis. - Related Data Home Medications Medication Instructions Recorded Confirmed Ipratropium-Albuterol Nebulize 3 ml INHALATION QID 04/22/19 12/08/22 [Duoneb 0.5 mg-3 mg/3 ml Soln] DULoxetine HCL [Cymbalta] 60 mg PO BID 04/12/21 12/08/22 Fluticasone Propionate [Flovent 1 puff INHALATION DAILY 04/12/21 12/08/22 Hfa 220 mcg] QUEtiapine [SEROquel] 100 mg PO HS 04/12/21 12/08/22 Albuterol Inhaler [Ventolin Hfa 1 - 2 puff INHALATION Q6H PRN 12/04/22 12/08/22 Inhaler] Atorvastatin [Lipitor] 40 mg PO HS 12/04/22 12/08/22 Cholecalciferol [Vitamin D3 (25 25 mcg PO DAILY 12/04/22 12/08/22 Mcg = 1000 Iu)] Tiotropium 18 Mcg/Puff [Spiriva] 1 puff INHALATION DAILY 12/04/22 12/08/22 Previous Rx's Medication Instructions Recorded Buta/APAP/Caf/Cod 03-152-05-30 1 cap PO Q4HR PRN #21 cap 05/11/21 [Fioricet w/Cod 86-928-02-30MG] metFORMIN HCL [Glucophage] 1,000 mg PO BID #60 tab 05/11/21 Aspirin EC [Ecotrin Low Dose] 81 mg PO DAILY #30 tab 03/13/22 HYDROcodone/APAP 5-325MG [[place] 1 tab PO Q6HR PRN 3 Days #12 tab 05/14/22 5325] Allergies Allergy/AdvReac Type Severity Reaction Status Date / Time No Known Allergies Allergy Verified 08/25/23 21:57 Review of Systems ROS Statement: Those systems with pertinent positive or pertinent negative responses have been documented in the HPI. ROS Other: All systems not noted in ROS Statement are negative. Past Medical History Past Medical History: Asthma, Cancer, COPD, Diabetes Mellitus, GERD/Reflux, Hyperlipidemia, Myocardial Infarction ([place]), Osteoarthritis (OA), Pneumonia, Seizure Disorder Additional Past Medical History / Comment(s): Migraines, hx colon cancer(5 yrs ago), LAST SEIZUE AUG 30, 2016, [place] on EKG, intermittent diarrhea. Last Myocardial Infarction Date:: unknown History of Any Multi-Drug Resistant Organisms: VRE Date of last positivie culture/infection: 08/01/16 MDRO Source:: Abdomen Past Surgical History: Appendectomy, Bowel Resection, Cholecystectomy, Hernia Repair, Tonsillectomy Additional Past Surgical History / Comment(s): Bowel resection with colostomy/later reversed, hernia repair X2. Past Anesthesia/Blood Transfusion Reactions: Previous Problems w/ Anesthesia Additional Past Anesthesia/Blood Transfusion Reaction / Comment(s): "Spinal/epidural anesthesia WITH COLON SURGERY- WHEN THE TUBE WAS REMOVED AIR BUBBLE WENT THE BRAIN, WAS TRANSFERRED TO ICU BECAUSE OF SEIZURES AUG 2016." "I can not have epidural." Past Psychological History: Depression Smoking Status: Current every day smoker Past Alcohol Use History: Rare Past Drug Use History: Marijuana - Past Family History Mother Family Medical History: No Reported History Father Family Medical History: COPD, Coronary Artery Disease (CAD) General Exam Limitations: no limitations General appearance: alert, in no apparent distress Head exam: Present: atraumatic, normocephalic Eye exam: Present: normal appearance Neck exam: Present: normal inspection Respiratory exam: Present: wheezes, rhonchi. Absent: normal lung sounds bilaterally, rales, stridor Cardiovascular Exam: Present: regular rate, normal rhythm, normal heart sounds. Absent: systolic murmur, diastolic murmur, rubs, gallop, clicks Neurological exam: Present: alert, oriented X3 Psychiatric exam: Present: normal affect, normal mood Skin exam: Present: warm, dry Course Vital Signs 02/20/24 02/21/24 02/21/24 21:54 00:45 01:46 Temperature 98.6 F 98.1 F Pulse Rate 102 H 85 94 Respiratory 20 18 19 Rate Blood Pressure 131/87 126/80 126/80 O2 Sat by Pulse 89 L 98 97 Oximetry 08/26/23 08/26/23 08/26/23 02:00 02:08 02:30 Temperature Pulse Rate 91 94 90 Respiratory 18 20 16 Rate Blood Pressure 96/67 115/66 115/66 O2 Sat by Pulse 90 L 94 L 92 L Oximetry 08/26/23 08/26/23 03:00 03:30 Temperature Pulse Rate 80 82 Respiratory 16 17 Rate Blood Pressure 115/66 98/58 O2 Sat by Pulse 93 L 93 L Oximetry Medical Decision Making - Medical Decision Making Was pt. sent in by a medical professional or institution ([facility], [employer], urgent care, hospital, or fdc...) When possible be specific @ -No Did you speak to anyone other than the patient for history (EMS, parent, family, police, friend...)? What history was obtained from this source @ -No Did you review nursing and triage notes (agree or disagree)? Why? @ -I reviewed and agree with nursing and triage notes Were old charts reviewed (outside hosp., previous admission, EMS record, old EKG, old radiological studies, urgent care reports/EKG's, fdc records)? Report findings @ -No old charts were reviewed Differential Diagnosis (chest pain, altered mental status, abdominal pain women, abdominal pain men, vaginal bleeding, weakness, fever, dyspnea, syncope, headache, dizziness, GI bleed, back pain, seizure, CVA, palpatations, mental health, musculoskeletal)? @ -MDM Differential Dyspnea: Coronary syndrome, arrhythmia, tamponade, asthma, COPD, pulmonary embolism, pneumonia, pneumothorax, pulmonary effusion, anaphylaxis, diabetic ketoacidosis, flailed chest, pulmonary contusion, diaphragmatic rupture, anemia, neuromuscular this is not meant to be an all-inclusive list. EKG interpreted by me (3pts min.). @ -EKG shows sinus rhythm ventricular rate 90. TN interval 192. QRS 142. QT 408. QTc 455. X-rays interpreted by me (1pt min.). @ -Chest x-ray shows no acute process CT interpreted by me (1pt min.). @ -None done U/S interpreted by me (1pt. min.). @ -None done What testing was considered but not performed or refused? (CT, X-rays, U/S, labs)? Why? @ -None What meds were considered but not given or refused? Why? @ -None Did you discuss the management of the patient with other professionals (professionals i.e. , PA, JIG BUILDER, lab, RT, psych nurse, social media content manager, medical billing representative, teacher, commissioned defence force officer, bottle caser)? Give summary @ -I spoke with Dr. Corey who accepted admission Was smoking cessation discussed for >3mins.? @ -No Was critical care preformed (if so, how long)? @ -No Were there social determinants of health that impacted care today? How? (Homelessness, low income, unemployed, alcoholism, drug addiction, transportation, low edu. Level, literacy, decrease access to med. care, fdc, rehab)? @ -No Was there de-escalation of care discussed even if they declined (Discuss DNR or withdrawal of care, Hospice)? DNR status @ -No What co-morbidities impacted this encounter? (DM, HTN, Smoking, COPD, CAD, C ancer, CVA, ARF, Chemo, Hep., AIDS, mental health diagnosis, sleep apnea, morbid obesity)? @ -COPD, smoking Was patient admitted / discharged? Hospital course, mention meds given and route, prescriptions, significant lab abnormalities, going to OR and other pertinent info. @ -62-year-old female presenting with chief complaint of shortness of breath, cough, congestion, body aches, headache, nausea, vomiting. Workup is initiated by triage. Chest x-ray shows no acute process and patient is positive for COVID. Patient is later placed in a room and history and physical exam are performed. She has diffuse wheezes and rhonchi, she is 88% on room air. Patient is given Solu-Medrol 125 and albuterol inhaler. On reassessment patient feels somewhat better but still has diffuse wheezing. She got up to use the bathroom and when she came back her oxygen was 78% on room air. She is maintained above 90% on 2 L of oxygen. She will require admission. She is agreeable with this plan. I discussed this case with my attending Dr. Pineda Undiagnosed new problem with uncertain prognosis? @ -No Drug Therapy requiring intensive monitoring for toxicity (Heparin, Nitro, Insulin, Cardizem)? @ -No Were any procedures done? @ -No Diagnosis/symptom? @ -COVID Acute, or Chronic, or Acute on Chronic? @ -Acute Uncomplicated (without systemic symptoms) or Complicated (systemic symptoms)? @ -Complicated Side effects of treatment? @ -No Exacerbation, Progression, or Severe Exacerbation? @ -No Poses a threat to life or bodily function? How? (Chest pain, [place], [place], pneumonia, PE, COPD, DKA, ARF, appy, cholecystitis, CVA, Diverticulitis, Homicidal, Suicidal, threat to staff... and all critical care pts) @ -Yes Diagnosis/symptom? @COPD exacerbation Acute, or Chronic, or Acute on Chronic? @Acute Uncomplicated (without systemic symptoms) or Complicated (systemic symptoms)? @Complicated Side effects of treatment? @None Exacerbation, Progression, or Severe Exacerbation] @Exacerbation Poses a threat to life or bodily function? @Yes - Lab Data Result diagrams: 08/26/23 02:15 08/26/23 02:15 Lab Results 08/25/23 08/26/23 08/26/23 Range/Units 22:01 02:15 02:15 WBC 5.0 (3.8-10.6) k/uL RBC 4.25 (3.80-5.40) m/uL Hgb 12.3 (11.4-16.0) gm/dL Hct 37.8 (34.0-46.0) % MCV 89.1 (80.0-100.0) fL MCH 29.1 (25.0-35.0) pg MCHC 32.6 (31.0-37.0) g/dL RDW 13.8 (11.5-15.5) % Plt Count 228 (150-450) k/uL MPV 7.3 Neutrophils % 81 % Lymphocytes % 9 % Monocytes % 7 % Eosinophils % 0 % Basophils % 0 % Neutrophils # 4.1 (1.3-7.7) k/uL Lymphocytes # 0.5 L (1.0-4.8) k/uL Monocytes # 0.4 (0-1.0) k/uL Eosinophils # 0.0 (0-0.7) k/uL Basophils # 0.0 (0-0.2) k/uL Sodium 133 L (137-145) mmol/L Potassium 4.1 (3.5-5.1) mmol/L Chloride 102 (98-107) mmol/L Carbon Dioxide 25 (22-30) mmol/L Anion Gap 6 mmol/L BUN 11 (7-17) mg/dL Creatinine 0.53 (0.52-1.04) mg/dL Est GFR (CKD-EPI)AfAm >90 (>60 ml/min/1.73 sqM) Est GFR (CKD-EPI)NonAf >90 (>60 ml/min/1.73 sqM) Glucose 173 H (74-99) mg/dL Calcium 8.5 (8.4-10.2) mg/dL Total Bilirubin 0.3 (0.2-1.3) mg/dL AST 32 (14-36) U/L ALT 29 (4-34) U/L Alkaline Phosphatase 90 (38-126) U/L Total Protein 5.9 L (6.3-8.2) g/dL Albumin 3.8 (3.5-5.0) g/dL Influenza Type A (PCR) Not Detected (Not Detectd) Influenza Type B (PCR) Not Detected (Not Detectd) RSV (PCR) Not Detected (Not Detectd) SARS-CoV-2 (PCR) Detected A (Not Detectd) Disposition Clinical Impression: COVID-19, COPD exacerbation Disposition: ADMITTED IP TO THIS [facility] Condition: Fair Referrals: Eddie Corea DO [Primary Care Provider] - 1-2 days Time of Disposition: 03:12
[2023-08-26] MEDS: SODIUM CHLORIDE 0.9% 1,000 ML IV SCH (04:10)
[2023-08-26] MEDS ORDERED: ALBUTEROL HFA INHALER INHALATION PRN (04:30)
[2023-08-26] MEDS ORDERED: DEXTROSE 50% SYRINGE 50 ML IVP PRN ×2 (04:31)
[2023-08-26 05:08] LABS: Glucose,Whole Blood 171 mg/dL (70-110)
[2023-08-26] MEDS: ACETAMINOPHEN TAB 325 MG TAB PO PRN (05:13)
--- NOTE | 2023-08-26 05:54 | P.HPIM ---
History of Present Illness H&P Date: 08/26/23 Chief Complaint: SOB 62 year old female with COPD on home oxygen at night 2 L NC patient coming in due to diffuse body aches, SOB, cough , nausea and vomiting, fever and chills. deneis any sore throat , or chest pain. she does report chronic diarrhea but denies any abd pain or GI bleeding denies any recent travel , hospital stay, or known sick contacts. she does admit to tobacco smoking, denies drugs and alcohol she tested positive for covid , she has received 2 vaccines for covid . while in the ED she was noted to be hypoxic on room air. (she only uses oxygen during sleep at home) review of systems Pertinent positives as noted in HPI. All other systems were reviewed and are negative on exam Constitutional: No acute distress, conversant, pleasant Eyes: Anicteric sclerae, moist conjunctiva, Pupils equal round reactive to light ENMT: NC/AT Oropharynx clear, no erythema, or exudates Neck: Supple, no masses, or JVD No carotid bruits No thyromegaly Lungs: Clear to auscultation Clear to percussion Normal respiratory effort, no accessory muscle use Cardiovascular: Heart regular in rate and rhythm, No murmurs, gallops, or rubs No peripheral edema Abdominal: Soft Nontender, no guarding, rebound or rigidity Abdomen moving with respiration Normoactive bowel sounds No hepatomegaly, No splenomegaly Extremities: No digital cyanosis No clubbing Pedal pulses intact and symmetrical Radial pulses intact and symmetrical No calf tenderness Psychiatric: Alert and oriented to person, place and time Appropriate affect fair judgement Neuro Muscles Strength 5/5 in all 4 extremities Sensation to light touch grossly present throughout Cranial nerves II-XII grossly intact Past Medical History Past Medical History: Asthma, Cancer, COPD, Diabetes Mellitus, GERD/Reflux, Hyperlipidemia, Myocardial Infarction ([place]), Osteoarthritis (OA), Pneumonia, Seizure Disorder Additional Past Medical History / Comment(s): Migraines, hx colon cancer(5 yrs ago), LAST SEIZUE AUG 30, 2016, [place] on EKG, intermittent diarrhea. Last Myocardial Infarction Date:: unknown History of Any Multi-Drug Resistant Organisms: VRE Date of last positivie culture/infection: 08/01/16 MDRO Source:: Abdomen Past Surgical History: Appendectomy, Bowel Resection, Cholecystectomy, Hernia Repair, Tonsillectomy Additional Past Surgical History / Comment(s): Bowel resection with colos remington/later reversed, hernia repair X2. Past Anesthesia/Blood Transfusion Reactions: Previous Problems w/ Anesthesia Additional Past Anesthesia/Blood Transfusion Reaction / Comment(s): "Spinal/epidural anesthesia WITH COLON SURGERY- WHEN THE TUBE WAS REMOVED AIR BUBBLE WENT THE BRAIN, WAS TRANSFERRED TO ICU BECAUSE OF SEIZURES AUG 2016." "I can not have epidural." Past Psychological History: Depression Smoking Status: Current every day smoker Past Alcohol Use History: Rare Past Drug Use History: Marijuana - Past Family History Mother Family Medical History: No Reported History Father Family Medical History: COPD, Coronary Artery Disease (CAD) Medications and Allergies Home Medications Medication Instructions Recorded Confirmed Type Ipratropium-Albuterol Nebulize 3 ml INHALATION QID 04/22/19 12/08/22 History [Duoneb 0.5 mg-3 mg/3 ml Soln] DULoxetine HCL [Cymbalta] 60 mg PO BID 04/12/21 12/08/22 History Fluticasone Propionate [Flovent 1 puff INHALATION DAILY 04/12/21 12/08/22 History Hfa 220 mcg] QUEtiapine [SEROquel] 100 mg PO HS 04/12/21 12/08/22 History Buta/APAP/Caf/Cod 04-449-23-30 1 cap PO Q4HR PRN #21 cap 05/11/21 12/08/22 Rx [Fioricet w/Cod 35-387-59-30MG] metFORMIN HCL [Glucophage] 1,000 mg PO BID #60 tab 05/11/21 12/08/22 Rx Aspirin EC [Ecotrin Low Dose] 81 mg PO DAILY #30 tab 03/13/22 12/08/22 Rx HYDROcodone/APAP 5-325MG [[place] 1 tab PO Q6HR PRN 3 Days #12 tab 05/14/22 12/08/22 Rx 5-325] Albuterol Inhaler [Ventolin Hfa 1 - 2 puff INHALATION Q6H PRN 12/04/22 12/08/22 History Inhaler] Atorvastatin [Lipitor] 40 mg PO HS 12/04/22 12/08/22 History Cholecalciferol [Vitamin D3 (25 25 mcg PO DAILY 12/04/22 12/08/22 History Mcg = 1000 Iu)] Tiotropium 18 Mcg/Puff [Spiriva] 1 puff INHALATION DAILY 12/04/22 12/08/22 History Allergies Allergy/AdvReac Type Severity Reaction Status Date / Time No Known Allergies Allergy Verified 08/25/23 21:57 Physical Exam Vitals: Vital Signs Temp Pulse Resp BP Pulse Ox 08/26/23 02:08 94 20 115/66 94 L 08/26/23 00:45 98.1 F 85 18 126/80 98 08/25/23 21:54 98.6 F 102 H 20 131/87 89 L Intake and Output 08/25/23 08/25/23 08/26/23 14:59 22:59 06:59 Other: Weight 95.254 kg Results CBC & Chem 7: 08/26/23 02:15 08/26/23 02:15 Labs: Abnormal Lab Results - Last 24 Hours (Table) 08/25/23 08/26/23 08/26/23 Range/Units 22:01 02:15 02:15 Lymphocytes # 0.5 L (1.0-4.8) k/uL Sodium 133 L (137-145) mmol/L Glucose 173 H (74-99) mg/dL Total Protein 5.9 L (6.3-8.2) g/dL SARS-CoV-2 (PCR) Detected A (Not Detectd) Assessment and Plan Assessment: 62-year-old female with COPD on home oxygen at nighttime coming in for upper respiratory infection symptoms with diffuse bodyaches I discussed case with ED doctor and accepted the admission for acute on chronic hypoxic respiratory failure with COVID-pneumonia with anticipated length of stay more than 2 midnights Acute on chronic hypoxic respiratory failure Acute COPD exacerbation ED reported hypoxemia into the mid 80s on room air Supplemental oxygen as needed Chest x-ray no acute cardiopulmonary process COVID-positive Decadron 6 mg IV push daily for 10 days Albuterol inhaler as needed Continue with Flovent daily Continue with Spiriva daily Gentle IV fluid hydration normal saline 75 cc/h Pain control with Motrin's as needed Droplet precautions Diabetes mellitus Insulin sliding scale Coronary artery disease Continue with aspirin and statin Blood work overall unremarkable white count 5 hemoglobin 12.3 Sodium 133 potassium 4.1 BUN 11 creatinine 0.5 Full code DVT prophylaxis Lovenox 40 mg subcu daily
[2023-08-26 09:09] LABS: Glucose,Whole Blood 181 mg/dL (70-110)
[2023-08-26] MEDS: INSULIN ASPART (NovoLOG) 100 UNIT/ML VIAL SQ SCH (09:33)
[2023-08-26] MEDS: ASPIRIN 81 MG PO SCH (09:33)
[2023-08-26] MEDS: ENOXAPARIN 40 MG/0.4 ML SYRINGE SQ SCH (09:33)
[2023-08-26] MEDS: DEXAMETHASONE SOD PHOSPHATE 10 MG/ML 1 ML VIAL IVP SCH (09:33)
[2023-08-26] MEDS: FLUTICASONE 220 MCG INHALER INHALATION SCH (10:01)
[2023-08-26] MEDS: TIOTROPIUM 2.5 MCG INHALER INHALATION SCH (10:01)
[2023-08-26] MEDS: ALBUTEROL HFA INHALER INHALATION SCH (10:01)
--- NOTE | 2023-08-26 11:31 | P.PN ---
Subjective Progress Note Date: 08/26/23 (delayed charting seen at 0830) Patient is a 62-year-old with history of COPD, diabetes, GERD, dyslipidemia, seizure disorder, and multiple other comorbid conditions who presented to the hospital with complaints of body aches, shortness of breath, and cough. In the emergency department she underwent extensive evaluation. She was found to be tachycardic with a pulse of 102 and hypoxic with an O2 sat of 89% on room air. Laboratory analysis was remarkable for sodium of 133. Patient tested positive for COVID. Chest x-ray demonstrated no acute cardiopulmonary process. Arrangements were made for admission for acute exacerbation of COPD associated with acute COVID infection. She was given a dose of Solu-Medrol and then transition to Decadron. Patient seen and examined at bedside. She is feeling much better today than yesterday. Her breathing is much improved and her wheezing has resolved. She overall is feeling better but is nervous that her COVID will get worse. She sees Dr. Tobar for pulmonary, and is requesting to see him here. Vital signs reviewed General: Nontoxic, no distress, appears at stated age Cardiovascular: S1S2 reg, no murmur Lungs: Decreased breath sounds bilateral bases., No rhonchi, no rales, no accessory muscle use Abdominal: Soft, nontender to palpation, no guarding Ext: No gross muscle atrophy, no edema b/l lower extremities, no contractures Neuro: CN II-XI grossly intact, no focal neuro deficits Psych: Alert, oriented, appropriate affect Assessment/Plan: Acute exacerbation of COPD Acute COVID-19 URI Acute hypoxic respiratory failure -Flovent 220 mcg daily, Ventolin 2 puffs 4 times daily and then every 6 hours as needed, Tia Tropium 2.5 mcg 2 puffs daily -Decadron 6 mg IV daily -Pulmonary hygiene Diabetes mellitus type 2 -Hold metformin -Sliding scale insulin -Follow blood sugars -Check A1c Dyslipidemia -Lipitor 40 mg Imaging: None new Data Review: None new DVT prophylaxis: Lovenox Anticipated discharge date: 24-[address]: home This dictation was prepared using [employer] voice recognition software. Though every attempt is made to correct errors during dictation some may still exist. Objective - Vital Signs Vital signs: Vital Signs Temp 97.6 F 08/26/23 09:05 Pulse 73 02/21/24 09:05 Resp 20 08/26/23 09:05 BP 100/57 08/26/23 09:05 Pulse Ox 93 L 08/26/23 10:04 FiO2 Intake & Output 08/25/23 08/26/23 08/26/23 18:59 06:59 18:59 Weight 95.254 kg Other: Voiding Method Toilet - Labs CBC & Chem 7: 08/26/23 02:15 08/26/23 02:15 Labs: Abnormal Lab Results - Last 24 Hours (Table) 08/25/23 08/26/23 08/26/23 Range/Units 22:01 02:15 02:15 Lymphocytes # 0.5 L (1.0-4.8) k/uL Sodium 133 L (137-145) mmol/L Glucose 173 H (74-99) mg/dL POC Glucose (mg/dL) (70-110) mg/dL Total Protein 5.9 L (6.3-8.2) g/dL SARS-CoV-2 (PCR) Detected A (Not Detectd) 08/26/23 08/26/23 Range/Units 05:07 09:08 Lymphocytes # (1.0-4.8) k/uL Sodium (137-145) mmol/L Glucose (74-99) mg/dL POC Glucose (mg/dL) 171 H 181 H (70-110) mg/dL Total Protein (6.3-8.2) g/dL SARS-CoV-2 (PCR) (Not Detectd)
[2023-08-26] MEDS: DULoxetine HCL 60 MG CAPSULE.DR PO SCH (12:36)
[2023-08-26 12:39] LABS: Glucose,Whole Blood 368 mg/dL (70-110)
[2023-08-26 16:52] LABS: Glucose,Whole Blood 188 mg/dL (70-110)
[2023-08-26 20:33] LABS: Glucose,Whole Blood 163 mg/dL (70-110)
[2023-08-26] MEDS: ATORVASTATIN 40 MG TAB PO SCH (20:46)
[2023-08-26] MEDS: QUEtiapine 100 MG TAB PO SCH (20:48)
[2023-08-26] MEDS ORDERED: DULoxetine HCL 60 MG CAPSULE.DR PO SCH (21:00)
[2023-08-26] MEDS: BUTALB/APAP/CAFF 50-325-40MG TAB PO PRN (21:10)
[2023-08-26] MEDS: ZOLPIDEM 5 MG TAB PO PRN (21:11)
--- NOTE | 2023-08-27 04:19 | P.CNPUL ---
History of Present Illness Consult date: 08/27/23 Requesting physician: Keysha Baltazar Reason for consult: COPD Chief complaint: Shortness of breath and flulike symptoms History of present illness: I am seeing this patient in consultation today 08/27/2023, in the emergency room after she presented with progressively worsening shortness of breath and flulike symptoms over the last 2 days. Patient is a 62-year-old white female with past medical history significant for severe COPD, right lower lung nodule, diabetes, hyperlipidemia, hypertension, colon cancer, seizure disorder, and current smoker. She does see Dr. Tobar in the office for management of her severe COPD. Her FEV1 is 30% of predicted. She uses a combination of Symbicort inhaler, Spiriva inhaler and an as needed Ventolin HFA. Patient presented emergency room on August 25 with complaints of progressively worsening shortness of breath, cough with yellow sputum production, myalgias, headaches, and sore throat. She did have a brief episode of nausea and vomiting that only lasted 1 day. She is currently sitting up in bed, on room air, confused and noted to be hypoxic on bedside monitor. I did place the patient back on 2 L nasal cannula, and she quickly reoriented. She was positive for COVID on arrival. States she had original COVID vaccination but no booster injections. No known prior history of COVID infections. Chest x-ray did not show any acute cardiopulmonary process. CBC on arrival unremarkable. No leukocytosis. BMP: Sodium 133, potassium 4.1, chloride 102, serum bicarb 25, BUN 11, creatinine 0.53, glucose 173. Patient has been placed on a combination of bronchodilators, Flovent inhaler, and Spiriva. She is also placed on Decadron. Vital signs are stable. Review of Systems REVIEW OF SYSTEMS: CONSTITUTIONAL: Denies any recent significant weight loss or weight gain. EYES: Denies change in vision. EARS, NOSE, MOUTH, THROAT: Admits occasional headaches. Admits postnasal drip and sore throat. CARDIOVASCULAR: Denies chest pain, palpitations or syncopal episodes. RESPIRATORY: See HPI. GASTROINTESTINAL: Denies change in appetite, abdominal pain, or diarrhea. Nausea and vomiting has resolved. GENITOURINARY: Denies hematuria, denies infections. MUSKULOSKELETAL: Denies pain, denies swelling. INTEGUMENTARY: Denies rash, denies eczema. NEUROLOGICAL: Denies recent memory loss, no recent seizure activity. PSYCHIATRIC: Denies anxiety, denies depression. HEMATOLOGIC/LYMPHATIC: Denies anemia, denies enlarged lymph node Past Medical History Past Medical History: Asthma, Cancer, COPD, Diabetes Mellitus, GERD/Reflux, Hyperlipidemia, Myocardial Infarction ([place]), Osteoarthritis (OA), Pneumonia, Seizure Disorder Additional Past Medical History / Comment(s): Migraines, hx colon cancer(5 yrs ago), LAST SEIZURE AUG 30, 2016, [place] on EKG, intermittent diarrhea. Last Myocardial Infarction Date:: 2000 History of Any Multi-Drug Resistant Organisms: VRE Date of last positivie culture/infection: 08/01/16 MDRO Source:: Abdomen Past Surgical History: Appendectomy, Bowel Resection, Cholecystectomy, Hernia Repair, Tonsillectomy Additional Past Surgical History / Comment(s): Bowel resection with colosto my/later reversed, hernia repair X2. Past Anesthesia/Blood Transfusion Reactions: Previous Problems w/ Anesthesia Additional Past Anesthesia/Blood Transfusion Reaction / Comment(s): "Spinal/epidural anesthesia WITH COLON SURGERY- WHEN THE TUBE WAS REMOVED AIR BUBBLE WENT THE BRAIN, WAS TRANSFERRED TO ICU BECAUSE OF SEIZURES AUG 2016." "I can not have epidural." Past Psychological History: Depression Smoking Status: Current every day smoker Past Alcohol Use History: Rare Additional Past Alcohol Use History / Comment(s): Smokes 1/2 PPD, started smoking age 20. Past Drug Use History: Marijuana Additional Drug Use History / Comment(s): Marijuana use rarely. - Past Family History Mother Family Medical History: No Reported History Father Family Medical History: AFIB Medications and Allergies Home Medications Medication Instructions Recorded Confirmed Type Ipratropium-Albuterol Nebulize 3 ml INHALATION RT-QID 04/22/19 08/26/23 History [Duoneb 0.5 mg-3 mg/3 ml Soln] DULoxetine HCL [Cymbalta] 60 mg PO BID 04/12/21 08/26/23 History QUEtiapine [SEROquel] 100 mg PO HS 04/12/21 08/26/23 History metFORMIN HCL [Glucophage] 1,000 mg PO BID #60 tab 05/11/21 08/26/23 Rx Aspirin EC [Ecotrin Low Dose] 81 mg PO DAILY #30 tab 03/13/22 08/26/23 Rx Albuterol Inhaler [Ventolin Hfa 1 - 2 puff INHALATION RT-Q6H PRN 12/04/22 08/26/23 History Inhaler] Atorvastatin [Lipitor] 40 mg PO HS 12/04/22 08/26/23 History Tiotropium 18 Mcg/Puff [Spiriva] 1 puff INHALATION RT-DAILY 12/04/22 08/26/23 History Oxybutynin Xl [Ditropan XL] 5 mg PO DIRECTED 08/26/23 08/26/23 History Tolterodine Tartrate [Tolterodine 2 mg PO DAILY 08/26/23 08/26/23 History Tartrate ER] Allergies Allergy/AdvReac Type Severity Reaction Status Date / Time No Known Allergies Allergy Verified 08/26/23 08:09 Physical Exam Vitals: Vital Signs Temp Pulse Pulse Resp BP BP Pulse Ox 08/27/23 00:00 67 20 98/55 96 08/26/23 22:00 85 14 102/55 95 08/26/23 21:48 89 14 102/55 96 08/26/23 19:25 98.0 F 73 14 103/67 96 08/26/23 14:00 97.7 F 71 18 107/62 94 L 08/26/23 10:04 93 L 08/26/23 09:05 97.6 F 73 20 100/57 95 08/26/23 04:15 72 15 111/66 92 L Intake and Output 08/26/23 08/26/23 08/27/23 14:59 22:59 06:59 Other: Voiding Method Toilet # Voids 1 Weight 95.254 kg GENERAL EXAM: Alert, 62-year-old white female, comfortable in no apparent distr ess. HEAD: Normocephalic and atraumatic EYES: Normal reaction of pupils, equal size. NOSE: Clear with pink turbinates. THROAT: No erythema or exudates. NECK: No masses, no JVD. CHEST: No chest wall deformity. LUNGS: Equal air entry with diffuse rhonchi and expiratory wheezing throughout. On 2 L/min nasal cannula. No conversational dyspnea or accessory muscle use.. CVS: S1 and S2 normal with no audible murmur, regular rhythm. No extra heart sounds ABDOMEN: No hepatosplenomegaly, active bowel sounds, no guarding or rigidity. SPINE: No scoliosis or deformity SKIN: No rashes CENTRAL NERVOUS SYSTEM: No focal deficits, tone is normal in all 4 extremities. EXTREMITIES: There is no peripheral edema, clubbing, or cyanosis. Peripheral pulses are intact. Results - Laboratory Findings CBC and BMP: 08/26/23 02:15 08/26/23 02:15 Abnormal lab findings: Abnormal Labs 08/25/23 08/26/23 08/26/23 22:01 02:15 02:15 Lymphocytes # 0.5 L Sodium 133 L Glucose 173 H POC Glucose (mg/dL) Total Protein 5.9 L SARS-CoV-2 (PCR) Detected A 08/26/23 08/26/23 08/26/23 05:07 09:08 12:38 Lymphocytes # Sodium Glucose POC Glucose (mg/dL) 171 H 181 H 368 H Total Protein SARS-CoV-2 (PCR) 08/26/23 08/26/23 16:50 20:31 Lymphocytes # Sodium Glucose POC Glucose (mg/dL) 188 H 163 H Total Protein SARS-CoV-2 (PCR) - Diagnostic Findings Chest x-ray: image reviewed Assessment and Plan Assessment: Acute COPD exacerbation, secondary to acute COVID-19 infection. Chest x-ray does not show any superimposed infiltrates or evidence of COVID-pneumonia. Acute hypoxemic respiratory failure, secondary to above Current tobacco dependence Severe chronic obstructive pulmonary disease, with an FEV1 30% of predicted. History of right lower lobe pulmonary nodule, non FDG avid on follow-up PET scan History of seizure disorder History of hyperlipidemia Diabetes mellitus type 2 Obesity, with a BMI of 38.4 kg/m Plan: Patient's medications, labs, chest x-ray reviewed Continue supplemental oxygen to maintain an oxygen saturation of 92% or greater Start patient on combination of bronchodilators, Symbicort inhaler, and continue IV Decadron Lovenox for DVT prophylaxis Smoking cessation counseling performed Nicotine replacement offered We will continue to follow I have personally seen and examined the patient, performed the documentation and the assessment and plan as written. Number of minutes spent on the visit:20 Time with Patient: Greater than 30
[2023-08-27 07:38] LABS: Glucose,Whole Blood 137 mg/dL (70-110)
[2023-08-27] MEDS: SYMBICORT 160-4.5 MCG INHALER INHALATION SCH (08:26)
[2023-08-27] MEDS: KETOROLAC 15 MG/ML 1 ML VIAL IVP PRN (09:34)
[2023-08-27] MEDS: NICOTINE 21MG/24HR PATCH TRANSDERM SCH (09:40)
[2023-08-27] MEDS: guaiFENesin 600 MG TABLET.ER PO SCH (09:44)
[2023-08-27 12:16] LABS: Glucose,Whole Blood 155 mg/dL (70-110)
[2023-08-27 17:01] LABS: Glucose,Whole Blood 170 mg/dL (70-110)
--- NOTE | 2023-08-27 18:35 | P.PN ---
Subjective Progress Note Date: 08/27/23 (delayed charting seen at 0820) Patient is a 62-year-old with history of COPD, diabetes, GERD, dyslipidemia, seizure disorder, and multiple other comorbid conditions who presented to the hospital with complaints of body aches, shortness of breath, and cough. In the emergency department she underwent extensive evaluation. She was found to be tachycardic with a pulse of 102 and hypoxic with an O2 sat of 89% on room air. Laboratory analysis was remarkable for sodium of 133. Patient tested positive for COVID. Chest x-ray demonstrated no acute cardiopulmonary process. Arrangements were made for admission for acute exacerbation of COPD associated with acute COVID infection. She was given a dose of Solu-Medrol and then transitioned to Decadron.Pulmonary was consulted. She was continued on bronchodilators. Patient seen and examined at bedside. Patient seen and examined at bedside. Her breathing is slightly worse today than yesterday. She is having a significant headache as well as muscle aches. She is feeling very fatigued. The ER stretcher is causing her significant back pain. Vital signs reviewed General: Nontoxic, no distress, appears at stated age Cardiovascular: S1S2 reg, no murmur Lungs: Decreased breath sounds bilateral bases., No rhonchi, no rales, no accessory muscle use Abdominal: Soft, nontender to palpation, no guarding Ext: No gross muscle atrophy, no edema b/l lower extremities, no contractures Neuro: CN II-XI grossly intact, no focal neuro deficits Psych: Alert, oriented, appropriate affect Assessment/Plan: Acute exacerbation of COPD Acute COVID-19 URI Acute hypoxic respiratory failure -Flovent 220 mcg daily, Ventolin 2 puffs 4 times daily and then every 6 hours as needed, Tiotropium 2.5 mcg 2 puffs daily -Add Mucinex 600 mg twice daily -Add Toradol 15 mg IV push every 6 hours as needed for muscle aches and pains -Decadron 6 mg IV daily -Pulmonary hygiene -pulmonary consultation reviewed: Patient with severe COPD with an FEV1 of 30% of predicted as well as a solitary pulmonary nodule. Continue with inhalers, Decadron, and other appropriate medications Diabetes mellitus type 2 -Hold metformin -Sliding scale insulin -Follow blood sugars - A1c 7 Dyslipidemia -Lipitor 40 mg Chronic: Solitary pulmonary nodule, right lower lobe Hypertension Prior colon cancer Seizure disorder Imaging: None new Data Review: Labs reviewed from today include blood sugars which are ranging 137 and 170. A1c 7 DVT prophylaxis: Lovenox Anticipated discharge date: 24-[address]: home This dictation was prepared using [employer] voice recognition software. Though every attempt is made to correct errors during dictation some may still exist. Objective - Vital Signs Vital signs: Vital Signs Temp 98.0 F 08/27/23 18:03 Pulse 73 08/27/23 18:03 Resp 18 08/27/23 18:03 BP 102/68 08/27/23 18:03 Pulse Ox 94 L 08/27/23 18:03 FiO2 Intake & Output 08/26/23 08/27/23 08/27/23 18:59 06:59 18:59 Weight 95.254 kg Other: Voiding Method Toilet # Voids 1 - Labs CBC & Chem 7: 08/26/23 02:15 08/26/23 02:15 Labs: Abnormal Lab Results - Last 24 Hours (Table) 08/26/23 08/27/23 08/27/23 Range/Units 20:31 07:30 07:36 POC Glucose (mg/dL) 163 H 137 H (70-110) mg/dL Hemoglobin A1c 7.0 H (<=6.0) % 08/27/23 08/27/23 Range/Units 12:14 16:59 POC Glucose (mg/dL) 155 H 170 H (70-110) mg/dL Hemoglobin A1c (<=6.0) %
[2023-08-27 20:11] LABS: Glucose,Whole Blood 172 mg/dL (70-110)
[2023-08-28 06:04] LABS: Glucose,Whole Blood 123 mg/dL (70-110)
[2023-08-28 08:34] LABS: HCT 36.7 % (37.2-46.3); HGB 11.5 g/dL (12.0-15.0); MCHC 31.3 g/dL (32.0-37.0); MCV 89.5 FL (80.0-97.0); Mean Platelet Volume 9.8 FL (9.5-12.2); NRBC Per 100 WBC 0 X 10*3/uL (0.00-0.01); Platelet Count 224 X 10*3/uL (140-440); RDW 14.1 % (11.5-14.5); WBC 7.88 X 10*3/uL (4.50-10.00)
[2023-08-28 08:53] LABS: ALT 29 U/L (8-44); AST 24 U/L (13-35); Albumin 3.6 g/dL (3.8-4.9); Alkaline Phosphatase 76 U/L (41-126); Blood Urea Nitrogen 22.8 mg/dL (9.0-27.0); Calcium 8.7 mg/dL (8.7-10.3); Carbon Dioxide 27.6 mmol/L (21.6-31.8); Chloride 102 mmol/L (96-109); Glucose 120 mg/dL (70-110); Potassium 5.4 mmol/L (3.5-5.5); Sodium 139 mmol/L (135-145); Total Bilirubin <0.2 mg/dL (0.3-1.2); Total Protein 5.6 g/dL (6.2-8.2)
[2023-08-28 11:28] LABS: Glucose,Whole Blood 167 mg/dL (70-110)
--- NOTE | 2023-08-28 13:36 | P.PN ---
Subjective Progress Note Date: 08/28/23 Principal diagnosis: Shortness of breath. I am seeing this patient in consultation today 08/27/2023, in the emergency room after she presented with progressively worsening shortness of breath and flulike symptoms over the last 2 days. Patient is a 62-year-old white female with past medical history significant for severe COPD, right lower lung nodule, diabetes, hyperlipidemia, hypertension, colon cancer, seizure disorder, and current smoker. She does see Dr. Tobar in the office for management of her severe COPD. Her FEV1 is 30% of predicted. She uses a combination of Symbicort inhaler, Spiriva inhaler and an as needed Ventolin HFA. Patient presented emergency room on August 25 with complaints of progressively worsening shortness of breath, cough with yellow sputum production, myalgias, headaches, and sore throat. She did have a brief episode of nausea and vomiting that only lasted 1 day. She is currently sitting up in bed, on room air, confused and noted to be hypoxic on bedside monitor. I did place the patient back on 2 L nasal cannula, and she quickly reoriented. She was positive for COVID on arrival. States she had original COVID vaccination but no booster injections. No known prior history of COVID infections. Chest x-ray did not show any acute cardiopulmonary process. CBC on arrival unremarkable. No leukocytosis. BMP: Sodium 133, potassium 4.1, chloride 102, serum bicarb 25, BUN 11, creatinine 0.53, glucose 173. Patient has been placed on a combination of bronchodilators, Flovent inhaler, and Spiriva. She is also placed on Decadron. Vital signs are stable. Progress note dated August 28, 2023. 62-year-old female seen in consultation yesterday. Today, she is seen in room 458. She is on room air. Not receiving any IV fluids. She was admitted with a diagnosis of coronavirus infection, and COPD exacerbation. She is currently on Decadron, Symbicort, albuterol, and Spiriva. She is feeling a bit better today than she did yesterday. She is not receiving any IV fluids. Labs include a white count 7.9, hemoglobin 1.5, hematocrit 36.7, and a normal platelet count. Sodium 139, potassium 5.4, chlorides 102, CO2 28, BUN 23, creatinine 0.8. Glucose is 167. Albumin is 3.6. Objective - Vital Signs Vital signs: Vital Signs Temp 98.6 F 08/28/23 07:09 Pulse 59 L 08/28/23 07:09 Resp 18 08/28/23 07:09 BP 110/67 08/28/23 07:09 Pulse Ox 97 08/28/23 07:49 FiO2 Intake & Output 08/27/23 08/28/23 08/28/23 18:59 06:59 18:59 Other: Voiding Method Toilet # Voids 3 - Exam No acute distress, oriented 3. 2 L saturation is 97%. HEENT examination is grossly unremarkable. Mucous membranes are moist. No oral lesions. Neck supple. Full range of motion. No adenopathy thyromegaly or neck vein distention. Cardiovascular examination reveals regular rhythm rate. S1-S2 normal. No S3 or S4. No discernible murmur noted. Heart rate 59 bpm. Lungs reveal expiratory wheezes and rhonchi. Sounds are equal bilaterally. There is prolongation on forced maneuver. No crackles. Abdomen soft bowel sounds are heard. No masses or tenderness. Extremities are intact. No cyanosis clubbing or edema. Skin is without rash or lesion. Neurologic examination is brief but nonfocal. - Labs CBC & Chem 7: 08/28/23 05:40 08/28/23 05:40 Labs: Abnormal Lab Results - Last 24 Hours (Table) 08/27/23 08/27/23 08/28/23 Range/Units 16:59 20:09 05:40 Hgb 11.5 L (12.0-15.0) g/dL Hct 36.7 L (37.2-46.3) % MCHC 31.3 L (32.0-37.0) g/dL BUN/Creatinine Ratio (12.00-20.00) Ratio Glucose (70-110) mg/dL POC Glucose (mg/dL) 170 H 172 H (70-110) mg/dL Total Bilirubin (0.3-1.2) mg/dL Total Protein (6.2-8.2) g/dL Albumin (3.8-4.9) g/dL 08/28/23 08/28/23 08/28/23 Range/Units 05:40 06:03 11:27 Hgb (12.0-15.0) g/dL Hct (37.2-46.3) % MCHC (32.0-37.0) g/dL BUN/Creatinine Ratio 28.50 H (12.00-20.00) Ratio Glucose 120 H (70-110) mg/dL POC Glucose (mg/dL) 123 H 167 H (70-110) mg/dL Total Bilirubin <0.2 L (0.3-1.2) mg/dL Total Protein 5.6 L (6.2-8.2) g/dL Albumin 3.6 L (3.8-4.9) g/dL Assessment and Plan Assessment: Acute COPD exacerbation, secondary to acute COVID-19 infection. Acute hypoxemic respiratory failure, secondary to above. Current tobacco dependence. Severe chronic obstructive pulmonary disease, with an FEV1 30% of predicted. History of right lower lobe pulmonary nodule, non FDG avid on follow-up PET scan. History of seizure disorder. History of hyperlipidemia. Diabetes mellitus type 2. Obesity, with a BMI of 38.4 kg/m. Plan: Plan dated August 28, 2023. The patient appears to be a bit better today than yesterday. She probably has a few more days in the hospital. She is on appropriate medications including Decadron, Symbicort, albuterol, and Spiriva. Labs, x-rays, and medications are reviewed. We will continue to follow the patient, and make recommendations along the way. Prognosis is guarded. Time with Patient: Less than 30
--- NOTE | 2023-08-28 17:19 | P.PN ---
Subjective Progress Note Date: 08/28/23 (delayed charting seen at 0930) Patient is a 62-year-old with history of COPD, diabetes, GERD, dyslipidemia, seizure disorder, and multiple other comorbid conditions who presented to the hospital with complaints of body aches, shortness of breath, and cough. In the emergency department she underwent extensive evaluation. She was found to be tachycardic with a pulse of 102 and hypoxic with an O2 sat of 89% on room air. Laboratory analysis was remarkable for sodium of 133. Patient tested positive for COVID. Chest x-ray demonstrated no acute cardiopulmonary process. Arrangements were made for admission for acute exacerbation of COPD associated with acute COVID infection. She was given a dose of Solu-Medrol and then transitioned to Decadron.Pulmonary was consulted. She was continued on bronchodilators. Patient seen and examined at bedside. She continues to have significant short ness of breath. She was able to eat some breakfast today. She denies any nausea or vomiting. She is feeling slightly anxious. No other complaints currently. Vital signs reviewed General: Nontoxic, no distress, appears at stated age Cardiovascular: S1S2 reg, no murmur Lungs: diffuse wheezing bilaterally, + accessory muscle use, +3 word conversational dyspnea Abdominal: Soft, nontender to palpation, no guarding Ext: No gross muscle atrophy, no edema b/l lower extremities, no contractures Neuro: CN II-XI grossly intact, no focal neuro deficits Psych: Alert, oriented, appropriate affect Assessment/Plan: Acute exacerbation of Severe COPD, FEV1 of 30% Acute COVID-19 URI Acute hypoxic respiratory failure -Flovent 220 mcg daily, Ventolin 2 puffs 4 times daily and then every 6 hours as needed, Tiotropium 2.5 mcg 2 puffs daily - Mucinex 600 mg twice daily - Toradol 15 mg IV push every 6 hours as needed for muscle aches and pains -Increase as needed albuterol to every 2 hours. Instructed patient to keep albuterol HFA at bedside and use every 2 hours until her respirations have improved. -Given her significant wheezing will increase Decadron to 6 mg IV push twice daily D # 3 of decadron -Pulmonary hygiene -Repeat basic metabolic profile in a.m. given Toradol use. -Pulmonary note reviewed: Continue current medications. Diabetes mellitus type 2 -Hold metformin -Sliding scale insulin -Follow blood sugars - A1c 7 Dyslipidemia -Lipitor 40 mg Chronic: Solitary pulmonary nodule, right lower lobe Hypertension Prior colon cancer Seizure disorder Imaging: None new Data Review: Labs reviewed from today include CBC, CMP, and hemoglobin A1c which are remarkable for hemoglobin 11.5, potassium 5.4 DVT prophylaxis: Lovenox Anticipated discharge date: Pending Clinical course Anticipated discharge place: home This dictation was prepared using [employer] voice recognition software. Though every attempt is made to correct errors during dictation some may still exist. Objective - Vital Signs Vital signs: Vital Signs Temp 98.7 F 08/28/23 14:28 Pulse 56 L 08/28/23 14:28 Resp 18 08/28/23 14:28 BP 122/77 08/28/23 14:28 Pulse Ox 93 L 08/28/23 14:28 FiO2 Intake & Output 08/27/23 08/28/23 08/28/23 18:59 06:59 18:59 Other: Voiding Method Toilet # Voids 3 - Labs CBC & Chem 7: 08/28/23 05:40 08/28/23 05:40 Labs: Abnormal Lab Results - Last 24 Hours (Table) 08/27/23 08/28/23 08/28/23 Range/Units 20:09 05:40 05:40 Hgb 11.5 L (12.0-15.0) g/dL Hct 36.7 L (37.2-46.3) % MCHC 31.3 L (32.0-37.0) g/dL BUN/Creatinine Ratio 28.50 H (12.00-20.00) Ratio Glucose 120 H (70-110) mg/dL POC Glucose (mg/dL) 172 H (70-110) mg/dL Total Bilirubin <0.2 L (0.3-1.2) mg/dL Total Protein 5.6 L (6.2-8.2) g/dL Albumin 3.6 L (3.8-4.9) g/dL 08/28/23 08/28/23 Range/Units 06:03 11:27 Hgb (12.0-15.0) g/dL Hct (37.2-46.3) % MCHC (32.0-37.0) g/dL BUN/Creatinine Ratio (12.00-20.00) Ratio Glucose (70-110) mg/dL POC Glucose (mg/dL) 123 H 167 H (70-110) mg/dL Total Bilirubin (0.3-1.2) mg/dL Total Protein (6.2-8.2) g/dL Albumin (3.8-4.9) g/dL
[2023-08-28 17:33] LABS: Glucose,Whole Blood 194 mg/dL (70-110)
[2023-08-28 21:04] LABS: Glucose,Whole Blood 270 mg/dL (70-110)
[2023-08-28] MEDS: DEXAMETHASONE SOD PHOSPHATE 10 MG/ML 1 ML VIAL IVP SCH (21:25)
[2023-08-29 06:33] LABS: Glucose,Whole Blood 157 mg/dL (70-110)
[2023-08-29 06:38] LABS: HCT 39.1 % (34.0-46.0); HGB 12.3 gm/dL (11.4-16.0); MCH 28.3 pg (25.0-35.0); MCHC 31.5 g/dL (31.0-37.0); MCV 89.9 fL (80.0-100.0); Mean Platelet Volume 7.6; Platelet Count 226 k/uL (150-450); RBC 4.35 m/uL (3.80-5.40); RDW 13.8 % (11.5-15.5); WBC 6.4 k/uL (3.8-10.6)
[2023-08-29 06:47] LABS: African American GFR (CKD) >90 (>60 ml/min/1.73 sqM); Anion Gap 3 mmol/L; Blood Urea Nitrogen 21 mg/dL (7-17); Calcium 8.8 mg/dL (8.4-10.2); Carbon Dioxide 28 mmol/L (22-30); Chloride 106 mmol/L (98-107); Glucose 166 mg/dL (74-99); Non-African American GFR(CKD) >90 (>60 ml/min/1.73 sqM); Potassium 5.7 mmol/L (3.5-5.1); Sodium 137 mmol/L (137-145)
[2023-08-29 07:57] VITALS: BP 125/80; PULSE 51; RESP 18; TEMP 98.1
[2023-08-29] MEDS: ALBUTEROL HFA INHALER INHALATION PRN (09:00)
[2023-08-29] MEDS: SODIUM ZIRCONIUM CYCLOSILICATE 10 GM PACKET PO ONE (10:09)
[2023-08-29] MEDS: DEXTROSE 50% SYRINGE 50 ML IVP STA (10:25)
[2023-08-29] MEDS: INSULIN REGULAR 100 UNIT/ML VIAL (IV) IV ONE (10:44)
--- NOTE | 2023-08-29 11:16 | P.DS ---
Providers Date of admission: 08/26/23 03:13 Expected date of discharge: 08/29/23 Attending physician: Cristina Corey MD Consults: 08/26/23 08:39 Consult Physician Routine Consulting Provider: Sebastian Tobar Consult Reason/Comments: COVID Do you want consulting provider notified?: Yes Primary care physician: Eddie Bellevue Hospital Course: Discharge Diagnosis: Acute exacerbation of Severe COPD, FEV1 of 30% Acute COVID-19 URI Acute hypoxic respiratory failure Diabetes mellitus type 2 Dyslipidemia Chronic: Solitary pulmonary nodule, right lower lobe Hypertension Prior colon cancer Seizure disorder Hospital Course: Patient is a 62-year-old with history of COPD, diabetes, GERD, dyslipidemia, seizure disorder, and multiple other comorbid conditions who presented to the hospital with complaints of body aches, shortness of breath, and cough. In the emergency department she underwent extensive evaluation. She was found to be tachycardic with a pulse of 102 and hypoxic with an O2 sat of 89% on room air. Laboratory analysis was remarkable for sodium of 133. Patient tested positive for COVID. Chest x-ray demonstrated no acute cardiopulmonary process. Arrangements were made for admission for acute exacerbation of COPD associated with acute COVID infection. She was given a dose of Solu-Medrol and then transitioned to Decadron.Pulmonary was consulted. She was continued on bronchodilators. She continued to have significant wheezing and dyspnea. Her headache and body ached improved. On the morning of 08/29/23 she was insisting on being discharged as she had no one to care for her dog at home. I encouraged the patient to stay and discussed with her that I feel discharge at this time will lead to worsening respiratory distress and compromise. However she is insisting on being discharged. She understands that this could lead to worsening of her condition, worsening of her breathing, and serious complications. I have asked her to return to the hospital if she develops worsening wheezing, shortness of breath, dizziness, chest discomfort, confusion or fatigue. She has oxygen at home already that she is at night which I have instructed her to use [id number]. Follow-up: Patient will be discharged home with Decadron 6 mg BID for 4 days then 6 mg once daily for 3 days to complete a total of 10 days Patient seen and examined at bedside. Continues to feel somewhat short of breath. Headache and bodyaches are better today. Asking to be discharged home for the reasons above. Vital signs reviewed and stable. General: Nontoxic, no distress, appears at stated age Cardiovascular: S1S2 reg, no murmur, positive posterior tibial pulse bilateral, Lungs: Diffuse wheezing bilaterally , no accessory muscle use Abdominal: Soft, nontender to palpation, no guarding, no appreciable organomegaly Ext: No gross muscle atrophy, no edema b/l lower extremities, no contractures Neuro: CN II-XI grossly intact, no focal neuro deficits Psych: Alert, oriented X 3 , clear though process in place, appropriate affect A total of 42 minutes of time were spent preparing this complex discharge summary. Patient was discharged on 08/29/23. This dictation was prepared using [employer] voice recognition software. Though every attempt is made to correct errors during dictation some may still exist. Patient Condition at Discharge: Fair Plan - Discharge Summary Discharge Rx Participant: Yes New Discharge Prescriptions: New dexAMETHasone [Decadron] See Rx Instructions .ROUTE .COMPLEX #11 tab guaiFENesin [Mucinex] 600 mg PO Q12HR #30 tab Continue Ipratropium-Albuterol Nebulize [Duoneb 0.5 mg-3 mg/3 ml Soln] 3 ml INHALATION RT-QID Aspirin EC [Ecotrin Low Dose] 81 mg PO DAILY #30 tab Atorvastatin [Lipitor] 40 mg PO HS Albuterol Inhaler [Ventolin Hfa Inhaler] 1 - 2 puff INHALATION RT-Q6H PRN PRN Reason: Shortness Of Breath Tolterodine Tartrate [Tolterodine Tartrate ER] 2 mg PO DAILY Oxybutynin Xl [Ditropan XL] 5 mg PO DIRECTED QUEtiapine [SEROquel] 100 mg PO BID DULoxetine HCL [Cymbalta] 60 mg PO BID metFORMIN HCL [Glucophage] 1,000 mg PO BID #60 tab Tiotropium 18 Mcg/Puff [Spiriva] 1 puff INHALATION RT-DAILY Discharge Medication List Ipratropium-Albuterol Nebulize [Duoneb 0.5 mg-3 mg/3 ml Soln] 3 ml INHALATION RT-QID 04/22/19 [History] DULoxetine HCL [Cymbalta] 60 mg PO BID 04/12/21 [History] QUEtiapine [SEROquel] 100 mg PO BID 04/12/21 [History] metFORMIN HCL [Glucophage] 1,000 mg PO BID #60 tab 05/11/21 [Rx] Aspirin EC [Ecotrin Low Dose] 81 mg PO DAILY #30 tab 03/13/22 [Rx] Albuterol Inhaler [Ventolin Hfa Inhaler] 1 - 2 puff INHALATION RT-Q6H PRN 12/04/22 [History] Atorvastatin [Lipitor] 40 mg PO HS 12/04/22 [History] Tiotropium 18 Mcg/Puff [Spiriva] 1 puff INHALATION RT-DAILY 12/04/22 [History] Oxybutynin Xl [Ditropan XL] 5 mg PO DIRECTED 08/26/23 [History] Tolterodine Tartrate [Tolterodine Tartrate ER] 2 mg PO DAILY 08/26/23 [History] dexAMETHasone [Decadron] See Rx Instructions .ROUTE .COMPLEX #11 tab 08/29/23 [Rx] guaiFENesin [Mucinex] 600 mg PO Q12HR #30 tab 08/29/23 [Rx] Follow up Appointment(s)/Referral(s): Eddie Corea DO [Primary Care Provider] - 1-2 days Sebastian Tobar DO [Doctor of Osteopathic Medicine] - 09/10/23 1:15 pm Activity/Diet/Wound Care/Special Instructions: Activity: as tolerated Diet: consistent carb Special Instructions: Resume your home inhaler regiment, please take your duoneb 4 times daily for the next 5 days and then you can resume your prior regiment Return with worsening shortness of breath, wheezing, fatigue, confusion. It was recommended that you continue your hospital stay, but at your insistence you are being discharged. Discharge Disposition: HOME SELF-CARE
--- NOTE | 2023-08-29 12:45 | P.PN ---
Subjective Progress Note Date: 08/29/23 I am seeing this patient in consultation today 08/27/2023, in the emergency room after she presented with progressively worsening shortness of breath and flulike symptoms over the last 2 days. Patient is a 62-year-old white female with past medical history significant for severe COPD, right lower lung nodule, diabetes, hyperlipidemia, hypertension, colon cancer, seizure disorder, and current smoker. She does see Dr. Tobar in the office for management of her severe COPD. Her FEV1 is 30% of predicted. She uses a combination of Symbicort inhaler, Spiriva inhaler and an as needed Ventolin HFA. Patient presented emergency room on August 25 with complaints of progressively worsening shortness of breath, cough with yellow sputum production, myalgias, headaches, and sore throat. She did have a brief episode of nausea and vomiting that only lasted 1 day. She is currently sitting up in bed, on room air, confused and noted to be hypoxic on bedside monitor. I did place the patient back on 2 L nasal cannula, and she quickly reoriented. She was positive for COVID on arrival. States she had original COVID vaccination but no booster injections. No known prior history of COVID infections. Chest x-ray did not show any acute cardiopulmonary process. CBC on arrival unremarkable. No leukocytosis. BMP: Sodium 133, potassium 4.1, chloride 102, serum bicarb 25, BUN 11, creatinine 0.53, glucose 173. Patient has been placed on a combination of bronchodilators, Flovent inhaler, and Spiriva. She is also placed on Decadron. Vital signs are stable. Progress note dated August 28, 2023. 62-year-old female seen in consultation yesterday. Today, she is seen in room 458. She is on room air. Not receiving any IV fluids. She was admitted with a diagnosis of coronavirus infection, and COPD exacerbation. She is currently on Decadron, Symbicort, albuterol, and Spiriva. She is feeling a bit better today than she did yesterday. She is not receiving any IV fluids. Labs include a wh ite count 7.9, hemoglobin 1.5, hematocrit 36.7, and a normal platelet count. Sodium 139, potassium 5.4, chlorides 102, CO2 28, BUN 23, creatinine 0.8. Glucose is 167. Albumin is 3.6. The patient is seen today August 29, 2023 in follow-up on the regular medical floor. She is currently sitting up in bed. Awake and alert in no acute distress. She is maintaining O2 saturation in the 90s on 2 L/min per nasal cannula. She has normal saline at 75 MLS per hour. She is continued on Symbicort, albuterol, Spiriva, Decadron. Count 6.4. Hemoglobin 12.3. Platelets 226. Sodium 137. Potassium 5.7. Bicarb 28. BUN 21. Creatinine 0.60. Glucose 166. Objective - Vital Signs Vital signs: Vital Signs Temp 98.1 F 08/29/23 07:43 Pulse 51 L 08/29/23 08:00 Resp 18 08/29/23 08:00 BP 125/80 08/29/23 07:43 Pulse Ox 96 08/29/23 07:43 FiO2 Intake & Output 08/28/23 08/29/23 08/29/23 18:59 06:59 18:59 Other: Voiding Method Toilet Toilet # Voids 4 2 - Exam GENERAL EXAM: Alert, pleasant 62-year-old female, on 2 L nasal cannula, comfortable in no apparent distress. HEAD: Normocephalic. EYES: Normal reaction of pupils, equal size. NOSE: Clear with pink turbinates. THROAT: No erythema or exudates. NECK: No masses, no JVD. CHEST: No chest wall deformity. LUNGS: Equal air entry with few scattered rhonchi. CVS: S1 and S2 normal with no audible murmur, regular rhythm. ABDOMEN: No hepatosplenomegaly, normal bowel sounds, no guarding or rigidity. SPINE: No scoliosis or deformity SKIN: No rashes CENTRAL NERVOUS SYSTEM: No focal deficits, tone is normal in all 4 extremities. EXTREMITIES: There is no peripheral edema. No clubbing, no cyanosis. Peripheral pulses are intact. - Labs CBC & Chem 7: 08/29/23 06:09 08/29/23 06:09 Labs: Abnormal Lab Results - Last 24 Hours (Table) 08/28/23 08/28/23 08/29/23 Range/Units 17:31 21:00 06:09 Potassium 5.7 H (3.5-5.1) mmol/L BUN 21 H (7-17) mg/dL Glucose 166 H (74-99) mg/dL POC Glucose (mg/dL) 194 H 270 H (70-110) mg/dL 08/29/23 Range/Units 06:30 Potassium (3.5-5.1) mmol/L BUN (7-17) mg/dL Glucose (74-99) mg/dL POC Glucose (mg/dL) 157 H (70-110) mg/dL Assessment and Plan Assessment: Acute COPD exacerbation, secondary to acute COVID-19 infection. Acute hypoxemic respiratory failure, secondary to above. Current tobacco dependence. Severe chronic obstructive pulmonary disease, with an FEV1 30% of predicted. History of right lower lobe pulmonary nodule, non FDG avid on follow-up PET scan. History of seizure disorder. History of hyperlipidemia. Diabetes mellitus type 2. Obesity, with a BMI of 38.4 kg/m. Plan: The patient was seen and evaluated Labs and medications reviewed Improved today compared to yesterday Continue her home pulmonary medications Continue Decadron for total of 10 days Follow-up in our office in 1 week I have personally seen and examined the patient, performed the documentation and the assessment and plan as written. Number of minutes spent on the visit: 10.
== END 2023-08-29 12:19 | disposition home or self-care (01) | DRG 137 ==
LOC: EC 21:49 → 4SSUR 08-26 03:13
PROVIDERS: ADMIT Internal Medicine; ATTEND Internal Medicine
DX: U07.1 COVID-19 (principal); J44.1 Chronic obstructive pulmonary disease with (acute) exacerbation; G40.909 Epilepsy, unspecified, not intractable, without status epilepticus; E11.9 Type 2 diabetes mellitus without complications; E78.5 Hyperlipidemia, unspecified; I25.2 Old myocardial infarction; J96.21 Acute and chronic respiratory failure with hypoxia; G43.909 Migraine, unspecified, not intractable, without status migrainosus; K52.9 Noninfective gastroenteritis and colitis, unspecified; F17.210 Nicotine dependence, cigarettes, uncomplicated; F32.A Depression, unspecified; I10 Essential (primary) hypertension; J06.9 Acute upper respiratory infection, unspecified; M54.9 Dorsalgia, unspecified; R00.0 Tachycardia, unspecified; R91.1 Solitary pulmonary nodule; M19.90 Unspecified osteoarthritis, unspecified site; K21.9 Gastro-esophageal reflux disease without esophagitis; Z68.38 Body mass index [BMI] 38.0-38.9, adult; Z99.81 Dependence on supplemental oxygen; Z87.01 Personal history of pneumonia (recurrent); Z79.4 Long term (current) use of insulin; Z79.82 Long term (current) use of aspirin; Z79.899 Other long term (current) drug therapy; Z85.038 Personal history of other malignant neoplasm of large intestine; Z78.9 Other specified health status; Z79.51 Long term (current) use of inhaled steroids; Z79.84 Long term (current) use of oral hypoglycemic drugs; Z82.49 Family history of ischemic heart disease and other diseases of the circulatory system; Z82.5 Family history of asthma and other chronic lower respiratory diseases
CPT/HCPCS: 36415; 71046; 80048; 80053; 83036; 83735; 85025; 85027; 87636; 93005; 94640; 94760; 96361; 96372; 96374; 96375; 96376; 99285

== ENCOUNTER → 2024-04-26 | Outpatient (CLI) | payer OTHER ==
--- NOTE | 2024-04-26 13:06 | CTL ---
EXAMINATION TYPE: CT Low Dose Lung DATE OF EXAM ORDERED: 04/26/2024 HISTORY: Nicotine dependence, current smoker, 20 pack-year history. Lung cancer screening CT DLP: [address] CTDI: 3.21 mGy Automated exposure control for dose reduction was used. SCREENING VISIT: Second screening visit COMPARISON: CT chest 04/20/2023, 10/08/2022, PET CT 10/18/2022, CT Low Dose Lung 09/16/2019 TECHNIQUE: Low dose computed tomography scan was performed through the chest at 1 mm thick sections a nd reconstructed images in multiple planes at 1 mm and [address] DIAGNOSTIC QUALITY: Satisfactory FINDINGS: Nodules: Stable 11.6 cm solid right lower lobe pulmonary nodule (series 8, image 39). Previously measured up t o 11.5 mm. No new or enlarging pulmonary nodules. LUNGS: COPD: Severity: None Fibrosis: Severity: None Lymph nodes: None Other findings: Scarring within the lingula. Minimal linear scarring within the posterior aspect of t he left upper lobe. Linear atelectasis within the medial right upper lobe. Linear scarring within the left lung base. RIGHT PLEURAL SPACE: Effusion: None Calcification: None Thickening: None Pneumothorax: None LEFT PLEURAL SPACE: Effusion: None Calcification: None Thickening: None Pneumothorax: None HEART: Heart Size: Normal Coronary Calcification: Small Pericardial Effusion: Small anterior pericardial effusion. OTHER FINDINGS: Upper abdomen: Gallbladder is surgically absent. Postsurgical changes from anterior to lateral wall w ith mesh anchors. Bony thorax: None Supraclavicular region: None Other: None IMPRESSION: 1. Stable right lower lobe pulmonary nodule. No new or enlarging pulmonary nodules. 2. Stable small anterior pericardial effusion. CT LUNG RAD AND CT CHEST RECOMMENDATION: Lung-Rad 3 Probably Benign: 6 month follow-up LDCT. S Modifier (other clinically significant findings): None [facility], , 04/26/2024 1:04 PM
--- NOTE | 2024-04-27 11:00 | MM ---
Reason for Exam: Screening (asymptomatic). Last mammogram was performed 1 year(s) and 6 month(s) ago. Patient History: Menarche at age 13. First Full-Term at age 41. Late child-bearing (after 30). Postmenopausal. Maternal aunt had breast cancer at or over age 50. Maternal aunt had breast cancer at or over age 50. Risk Values: Ivis 5 year model risk: 2.2%. NCI Lifetime model risk: 9.1%. Prior Study Comparison: 12/08/2003 Left Special View Mammogram, [facility]. 08/06/2005 Bilateral Screening Mammogram, [facility]. 10/10/2022 Bilateral MG 3D screening mammo w/cad, [facility]. Tissue Density: There are scattered areas of fibroglandular density. Findings: Analyzed By CAD. There is no suspicious group of microcalcifications or new suspicious mass in either breast. Overall Assessment: Benign, BI-RAD 2 Management: Screening Mammogram of both breasts in 1 year. . Patient should continue monthly self-breast exams. A clinical breast exam by your physician is recommended on an annual basis. This exam should not preclude additional follow-up of suspicious palpable abnormalities. Note on Ivis scores and lifetime risk: 1. A Ivis score greater than 3% is considered moderate risk. If this is the case, consider specialist referral to assess eligibility for a risk reducing agent. 2. If overall lifetime risk for the development of breast cancer is 20% or higher, the patient may qualify for future screening with alternating mammogram and breast MRI. [facility], , 04/27/2024 10:57 AM. Electronically signed and approved by: Ant Ram M.D. [facility]iolog[facility]
== END | disposition home or self-care (01) ==
LOC: RADMAMWWP 11:57
PROVIDERS: ATTEND Internal Medicine
CPT/HCPCS: 71271; 77063; 77067

== ENCOUNTER 2024-07-18 11:45 | Day surgery (SDC) | payer OTHER ==
[~2024-07-18 11:45] MED LIST changes: -ACETAMINOPHEN TAB 500 MG TAB PO PRN; -DEXAMETHASONE SOD PHOSPHATE 4 MG/ML 1 ML VIAL IV ONE; -HEPARIN SODIUM,PORCINE/PF 5,000 UNIT/0.5 ML SYRINGE SQ PRN; +LACTATED RINGERS 1,000 ML IV SCH; +LIDOCAINE 1% (10MG/ML) FOR IV START INTRADERMA PRN; -MIDAZOLAM 2 MG/2 ML VIAL IV PRN; -ONDANSETRON 4 MG/2 ML VIAL IVP ONE; -Pre Op ABX Message 1 EACH MISC MISCELLANE ONE; -SCOPOLAMINE 1 MG/72 HR PATCH TRANSDERM ONE
[2024-07-18 12:16] VITALS: TEMP 97.1
[2024-07-18 12:33] LABS: Glucose,Whole Blood 123 mg/dL (70-110)
[2024-07-18] MEDS: IV FLUID CONTINUATION 500 ML IV ONE (12:34)
[2024-07-18] MEDS ORDERED: PROPOFOL 10 MG/ML 20 ML VIAL IV ONE (12:46)
[2024-07-18] MEDS ORDERED: LIDOCAINE 1% INJ 10MG/ML (20 ML MDV) ONE (12:46)
--- NOTE | 2024-07-18 12:50 | P.GSHP ---
History of Present Illness H&P Date: 07/18/24 Chief Complaint: Dysphagia, screening colonoscopy This 63-year-old female who has issues dysphagia. Patient today for EGD and screening colonoscopy. Past Medical History Past Medical History: Asthma, Cancer, COPD, Diabetes Mellitus, GERD/Reflux, Hyperlipidemia, Hypertension, Myocardial Infarction (GA), Osteoarthritis (OA), Pneumonia, Seizure Disorder, Thyroid Disorder Additional Past Medical History / Comment(s): Migraines, hx colon cancer(5 yrs ago), LAST SEIZURE AUG 30, 2016, GA on EKG, intermittent diarrhea. Last Myocardial Infarction Date:: 2000 History of Any Multi-Drug Resistant Organisms: VRE Date of last positivie culture/infection: 08/01/16 MDRO Source:: Abdomen Past Surgical History: Appendectomy, Bowel Resection, Cholecystectomy, Hernia Repair, Tonsillectomy Additional Past Surgical History / Comment(s): Bowel resection with colostomy/la ter reversed, hernia repair X2. Past Anesthesia/Blood Transfusion Reactions: Previous Problems w/ Anesthesia Additional Past Anesthesia/Blood Transfusion Reaction / Comment(s): "Spinal/epidural anesthesia WITH COLON SURGERY- WHEN THE TUBE WAS REMOVED AIR BUBBLE WENT THE BRAIN, WAS TRANSFERRED TO ICU BECAUSE OF SEIZURES AUG 2016." "I can not have epidural." Smoking Status: Current every day smoker - Past Family History Mother Family Medical History: No Reported History Father Family Medical History: AFIB Medications and Allergies Home Medications Medication Instructions Recorded Confirmed Type Ipratropium-Albuterol Nebulize 3 ml INHALATION RT-QID 04/22/19 07/18/24 History [Duoneb 0.5 mg-3 mg/3 ml Soln] DULoxetine HCL [Cymbalta] 60 mg PO BID 04/12/21 07/18/24 History QUEtiapine [SEROquel] 100 mg PO BID PRN 04/12/21 07/18/24 History metFORMIN HCL [Glucophage] 1,000 mg PO BID #60 tab 05/11/21 07/18/24 Rx Aspirin EC [Ecotrin Low Dose] 81 mg PO DAILY #30 tab 03/13/22 07/18/24 Rx Albuterol Inhaler [Ventolin Hfa 1 - 2 puff INHALATION RT-Q6H PRN 12/04/22 07/18/24 History Inhaler] Atorvastatin [Lipitor] 40 mg PO HS 12/04/22 07/18/24 History Tiotropium 18 Mcg/Puff [Spiriva] 1 puff INHALATION RT-DAILY 12/04/22 07/18/24 History Oxybutynin Xl [Ditropan XL] 5 mg PO DIRECTED 08/26/23 07/18/24 History Echinacea (Unk) 1 tab PO DAILY 07/12/24 07/18/24 History Hairskin Nails (Unk) 1 tab PO DAILY 07/12/24 07/18/24 History Levothyroxine Sodium 25 mcg PO DAILY 07/12/24 07/18/24 History QUEtiapine FUMARATE 100 mg PO DAILY 07/12/24 07/18/24 History Vit D3 (Unk) 1 tab PO DAILY 07/12/24 07/18/24 History Allergies Allergy/AdvReac Type Severity Reaction Status Date / Time No Known Allergies Allergy Verified 07/18/24 12:16 Surgical - Exam Vital Signs Temp Pulse Resp BP Pulse Ox 97.1 F L 85 18 119/82 94 L 07/18/24 12:13 07/18/24 12:13 07/18/24 12:13 07/18/24 12:13 07/18/24 12:13 - General well developed, well nourished, no distress - Eyes PERRL - ENT normal pinna - Neck no masses - Respiratory normal expansion - Cardiovascular Rhythm: regular - Abdomen Abdomen: soft, non tender Results - Labs Abnormal Lab Results - Last 24 Hours (Table) 07/18/24 Range/Units 12:27 POC Glucose (mg/dL) 123 H (70-110) mg/dL Assessment and Plan Assessment: Dysphagia, screening colonoscopy. Will perform EGD and screening colonoscopy.
--- NOTE | 2024-07-18 13:14 | P.OP ---
Date of Procedure: 07/18/24 Preoperative Diagnosis: Dysphagia Screening colonoscopy Postoperative Diagnosis: Antral gastritis Hiatal hernia Poor colon prep Procedure(s) Performed: EGD Colonoscopy Anesthesia: MAC Surgeon: Clemente Caceres Pathology: other (Antrum) Condition: stable Disposition: PACU Description of Procedure: Patient is placed on the endoscopy table in the lateral position. She received IV sedation. The gastroscope was placed oropharynx passed in the esophagus and the stomach. Scope was gerd pylorus. The first and second portion of duodenum appeared normal. Scope was then brought back to the antrum this appeared mildly Flaim. A biopsy was performed. The scope was then retroflexed and the Mainer of the stomach appeared normal. Patient had a moderate size hiatal hernia. The GE junction was at 38 cm. The distal esophagus appeared normal. Proximal esophagus preoperative scope withdrawn for patient. Next digital rectal exam was performed. This removed field a large amount of liquid stool. Flexible colonoscope was then placed patient anus passed throughout the colon. Patient had a previous colorectal anastomosis. This was visualized. The scope was placed beyond the anastomosis. And there was a large amount of liquid stool which prevented visualization of the colon. This point scope withdrawn. The visualized transverse colon appeared normal. Visualized rectum appeared normal. Scope withdrawn from patient.
[2024-07-18 13:43] VITALS: BP 103/68; PULSE 86; RESP 160
== END 2024-07-18 14:12 | disposition home or self-care (01) ==
LOC: ORWHC2ENDO 11:45
PROVIDERS: ATTEND Surgery
DX: Z12.11 Encounter for screening for malignant neoplasm of colon (principal); K29.50 Unspecified chronic gastritis without bleeding; K44.9 Diaphragmatic hernia without obstruction or gangrene; E11.9 Type 2 diabetes mellitus without complications; E78.5 Hyperlipidemia, unspecified; G40.909 Epilepsy, unspecified, not intractable, without status epilepticus; I25.10 Atherosclerotic heart disease of native coronary artery without angina pectoris; J44.89 Other specified chronic obstructive pulmonary disease; I10 Essential (primary) hypertension; I25.2 Old myocardial infarction; K21.9 Gastro-esophageal reflux disease without esophagitis; M19.90 Unspecified osteoarthritis, unspecified site; F17.200 Nicotine dependence, unspecified, uncomplicated; Z79.84 Long term (current) use of oral hypoglycemic drugs; Z79.890 Hormone replacement therapy; Z85.038 Personal history of other malignant neoplasm of large intestine; Z90.49 Acquired absence of other specified parts of digestive tract; Z98.890 Other specified postprocedural states; Z79.51 Long term (current) use of inhaled steroids; Z79.82 Long term (current) use of aspirin; Z90.89 Acquired absence of other organs; Z99.81 Dependence on supplemental oxygen
CPT/HCPCS: 88305; 45378; 43239; J2003; J2704

== ENCOUNTER → 2024-08-30 | Outpatient (CLI) | payer OTHER ==
--- NOTE | 2024-08-30 09:52 | FL ---
EXAMINATION TYPE: FL UGI air w esophagus DATE OF EXAM: 08/30/2024 9:18 AM COMPARISON: CT/plain film CLINICAL INDICATION:Female, 63 years old with history of R13.10 DYSPHAGIA; TECHNIQUE: The procedure was explained and patient history elicited. All patient questions were ans wered prior to start of procedure. A cash manager radiograph of the abdomen was also reviewed. Multiple flu oroscopic spot images of the esophagus, stomach and duodenum were obtained following ingestion of liq uid barium and EZ-gas crystals. DAP: Not recorded [id number] FINDINGS: Upper GI examination: The cash manager abdominal radiograph demonstrates a normal bowel gas pattern without dilated loops of small or large bowel. There is no evidence for organomegaly or pneumoperitoneum. No abnormal calcificat ions. The visualized osseous structures are intact. The esophagus demonstrates severe tertiary contractions with undulating fingerlike contour. . Delayed emptying of contents throughout the esophagus with small esophageal reflux. No suspicious masses. The stomach and duodenum demonstrate a normal course and contour. There is no evidence of focal ld vicky or duodenal ulceration, stricture, or abnormal outpouching. IMPRESSION: Severe presbyesophagus/Esophageal dysmotility. [facility], , 08/30/2024 9:50 AM
== END | disposition home or self-care (01) ==
LOC: RADFLMAIN 08:44
PROVIDERS: ATTEND Surgery
DX: K22.4 Dyskinesia of esophagus (principal); R13.10 Dysphagia, unspecified
CPT/HCPCS: 74246

== ENCOUNTER 2024-10-13 08:04 | Day surgery (SDC) | payer OTHER ==
[2024-10-13 09:08] VITALS: TEMP 97
[2024-10-13] MEDS: LACTATED RINGERS 1,000 ML IV SCH (09:09)
[2024-10-13] MEDS: IV FLUID CONTINUATION 1,000 ML IV ONE (09:09)
[2024-10-13 09:13] LABS: Glucose,Whole Blood 147 mg/dL (70-110)
[2024-10-13] MEDS: KETOROLAC 15 MG/ML 1 ML VIAL IVP STA (09:15)
[2024-10-13] MEDS ORDERED: PROPOFOL 10 MG/ML 20 ML VIAL IV ONE (09:36)
--- NOTE | 2024-10-13 10:03 | P.OP ---
Date of Procedure: 10/13/24 Preoperative Diagnosis: Screening colonoscopy Postoperative Diagnosis: Multiple colon polyps Diverticulosis Procedure(s) Performed: Colonoscopy Anesthesia: MAC Surgeon: Clemente Caceres Pathology: other (Colon polyps) Condition: stable Disposition: PACU Description of Procedure: The patient was placed on the endoscopy table in the lateral position. He received IV sedation. Digital rectal exam performed. This revealed a few external hemorrhoids. Flexible colonoscope was then placed patient anus passed throughout the entire colon. Patient had a previous sigmoid colectomy. The ileocecal valve was visualized. The cecum was examined. There were several polyps removed with a snare of the cecum. And then removed a cold forcep. Scope withdrawn and in the ascending and transverse colon with mild diverticulosis. In the descending colon there was more diverticular changes seen. In the descending colon just proximal to the anastomosis of the polyp was seen through the snare. Scope was brought back through the anastomosis this was without evidence of ablation. Scope was brought back to the rectum this appeared normal. Scope withdrawn for the patient.
[2024-10-13 10:32] VITALS: BP 108/68; PULSE 96; RESP 14
== END 2024-10-13 10:42 | disposition home or self-care (01) ==
LOC: ORWHC2ENDO 08:04
PROVIDERS: ATTEND Surgery
DX: Z12.11 Encounter for screening for malignant neoplasm of colon (principal); D12.4 Benign neoplasm of descending colon; K62.1 Rectal polyp; D12.2 Benign neoplasm of ascending colon; K57.30 Diverticulosis of large intestine without perforation or abscess without bleeding; K64.4 Residual hemorrhoidal skin tags; K22.4 Dyskinesia of esophagus; K44.9 Diaphragmatic hernia without obstruction or gangrene; K21.9 Gastro-esophageal reflux disease without esophagitis; J44.9 Chronic obstructive pulmonary disease, unspecified; E78.5 Hyperlipidemia, unspecified; I25.2 Old myocardial infarction; G40.909 Epilepsy, unspecified, not intractable, without status epilepticus; G43.909 Migraine, unspecified, not intractable, without status migrainosus; F41.9 Anxiety disorder, unspecified; F32.A Depression, unspecified; F17.210 Nicotine dependence, cigarettes, uncomplicated; Z79.899 Other long term (current) drug therapy; Z79.890 Hormone replacement therapy; Z85.038 Personal history of other malignant neoplasm of large intestine; Z90.89 Acquired absence of other organs; Z98.890 Other specified postprocedural states
CPT/HCPCS: 88305; 45380; 45385; J1885; J2704

== ENCOUNTER → 2024-10-18 | Outpatient (CLI) | payer OTHER ==
[2024-10-18 12:25] LABS: Basophils # (A) 0.05 10*3/uL (0.00-0.10); Basophils % (A) 0.3 %; Eosinophils % (A) 2.8 %; HCT 40.5 % (37.2-46.3); HGB 12.7 g/dL (12.0-15.0); Lymphocytes # (A) 2.91 10*3/uL (0.90-5.00); Lymphocytes % (A) 20.1 %; MCH 28.2 pg (27.0-32.0); MCHC 31.4 g/dL (32.0-37.0); MCV 89.8 fL (80.0-97.0); Monocytes # (A) 1.15 10*3/uL (0.20-1.00); Monocytes % (A) 7.9 %; Neutrophils # (A) 9.93 10*3/uL (1.80-7.70); Neutrophils % (A) 68.6 %; Platelet Count 357 10*3/uL (140-440); RBC 4.51 10*6/uL (4.10-5.20); RDW 15.3 % (11.5-14.5); WBC 14.49 10*3/uL (4.50-10.00)
[2024-10-18 13:17] LABS: RBC Morphology Normal
[2024-10-18 15:37] LABS: LDH 179 U/L (120-246)
[2024-10-18 15:53] LABS: Protein, Total 6.3 g/dL (6.2-8.2)
[2024-10-18 16:07] LABS: Vitamin B12 >3600.0 pg/mL (200.0-944.0)
[2024-10-18 16:38] LABS: HIV 2 AB Non-Reactive (Non-Reactive); HIV AB P24 Non-Reactive (Non-Reactive); HIV P24 AG Non-Reactive (Non-Reactive)
[2024-10-18 20:24] LABS: Hepatitis C IgG Antibody Nonreactive (Nonreactive)
== END | disposition home or self-care (01) ==
LOC: LABWHC1 11:39
PROVIDERS: ATTEND Internal Medicine
DX: D72.829 Elevated white blood cell count, unspecified (principal)
CPT/HCPCS: 36415; 82607; 82746; 83615; 84165; 85025; 86038; 86334; 86803; 87390

== ENCOUNTER → 2024-10-20 | Outpatient (CLI) | payer OTHER ==
--- NOTE | 2024-10-20 12:09 | CTL ---
EXAMINATION TYPE: CT Low Dose Lung DATE OF EXAM ORDERED: 10/20/2024 COMPARISON: CT Low Dose Lung 04/26/2024, 09/16/2019, CT chest 04/20/2023, 10/08/2022, PET CT 10/18/2022 CLINICAL INDICATION: Female, 63 years old with history of R91.1 LUNG NODULE; PHH, History of tobacco use., Lung cancer screening, History of Smoking/tobacco use. TECHNIQUE: Low dose computed tomography scan was performed through the chest at 1 mm thick sections a nd reconstructed images in multiple planes at 1 mm and [address] DLP: [address] CTDI: 2.79 mGy Automated exposure control for dose reduction was used. CT DIAGNOSTIC QUALITY: Satisfactory FINDINGS: Nodules: Marginal increase in size of 12.7 mm solid right lower lobe pulmonary nodule (series 8, image 40) pre viously measured 11.[address] and 7.[address] 09/16/2019. Stable right lower lobe peripheral 3 .9 mm solid pulmonary nodule (series 8, image 37) dating back to 2019. No new pulmonary nodules. LUNGS: COPD: Severity: None Fibrosis: Severity: None Lymph nodes: None Other findings: Similar scattered regions of scarring and/or atelectasis. RIGHT PLEURAL SPACE: Effusion: None Calcification: None Thickening: None Pneumothorax: None LEFT PLEURAL SPACE: Effusion: None Calcification: None Thickening: None Pneumothorax: None HEART: Heart Size: Normal, mitral annulus calcifications. Coronary Calcification: Small Pericardial Effusion: Similar small anterior pericardial effusion. OTHER FINDINGS: Upper abdomen: Gallbladder is surgically absent. Postsurgical changes from anterior to lateral wall w ith mesh anchors. Bony thorax: Mild multilevel degenerative disc disease. Supraclavicular region: None Other: None IMPRESSION: 1. Marginal increase in size of right lower lobe 12.7 mm pulmonary nodule from most recent CT. No ne w pulmonary nodules. 2. Stable small anterior pericardial effusion. CT LUNG RAD AND CT CHEST RECOMMENDATION: Lung-Rad 4A Suspicious: Follow-up 3 month LDCT or PET/CT may be used when there is a > 8 mm solid component. S Modifier (other clinically significant findings): None [facility], , 10/20/2024 12:07 PM
== END | disposition home or self-care (01) ==
LOC: RADCTMAIN 11:04
PROVIDERS: ATTEND Internal Medicine
DX: Z12.2 Encounter for screening for malignant neoplasm of respiratory organs (principal); F17.210 Nicotine dependence, cigarettes, uncomplicated; R91.1 Solitary pulmonary nodule; I31.39 Other pericardial effusion (noninflammatory)
CPT/HCPCS: 71271

== ENCOUNTER → 2024-10-20 | Outpatient (CLI) | payer OTHER ==
--- NOTE | 2024-10-20 12:00 | US ---
EXAMINATION TYPE: US thyroid st tissue head/neck DATE OF EXAM: 10/20/2024 COMPARISON: CT chest 2022 CLINICAL INDICATION: Female, 63 years old with history of E04.1 NONTOXIC SINGLE THYROID NODULE; Nodul e. Pt takes levothyroxine. TECHNIQUE: Grayscale and color Doppler imaging of the thyroid gland. FINDINGS: GLAND SIZE: Right Lobe: 5.0 x 1.6 x 1.9 cm Overall Parenchyma: heterogeneous Left Lobe: 4.6 x 1.2 x 1.3 cm Overall Parenchyma: heterogeneous Isthmus Thickness: 0.28 cm NODULES RIGHT: # of nodules measured on right: 1. Additional less than 5 mm nodule seen, not fully measured . 1. 1.4 X 1.0 x 1.1 cm, upper lateral, solid or almost completely solid, isoechoic nodule, which is taller than wide, with smooth margins, without echogenic foci. TR 4. Prior size: no prior LEFT: # of nodules measured on left: 1 1. 0.6 X 0.6 x 0.4 cm, lower mid, mixed cystic and solid, hypoechoic nodule, which is wider than ta ll, with smooth margins, without echogenic foci. TR 3. Prior size: no prior ISTHMUS: # of nodules measured in the isthmus: 0 Bilateral neck scanned, no evidence of lymphadenopathy. IMPRESSION: Bilateral thyroid nodules with TR 4 right thyroid lobe 1.4 cm nodule and left thyroid lobe 0.6 cm TR 3 nodule. Highest TI-RADS level nodule reported: ACR TI-RADS LEVEL: TI-RADS 4 - Moderately Suspicious: Follow if > 1 cm, FNA if > 1.5 cm TI-RADS assessment score and recommendation for follow-up based on appropriate scoring and treatment protocols. TR3: If nodule size is ? 2.5 cm, FNA is recommended. If nodule size is ? 1.5 cm, follow-up imaging at 1, 3, and 5 years is recommended. TR4: If nodule size is ? 1.5 cm, FNA is recommended. If nodule size is ? 1.0 cm, follow-up imaging at 1, 2, 3, and 5 years is recommended. TR5: If nodule size is ? 1.0 cm, FNA is recommended. If nodule size is ? 0.5 cm, annual follow-up for up to 5 years is recommended. [facility], , 10/20/2024 11:58 AM
== END | disposition home or self-care (01) ==
LOC: RADUSWWP 11:05
PROVIDERS: ATTEND Internal Medicine
DX: E04.2 Nontoxic multinodular goiter (principal)
CPT/HCPCS: 76536

== ENCOUNTER → 2024-11-10 | Outpatient (CLI) | payer OTHER ==
--- NOTE | 2024-11-13 18:14 | PE ---
EXAMINATION TYPE: PET CT fusion skull to thigh DATE OF EXAM: 11/10/2024 CLINICAL INDICATION:Female, 63 years old with history of R91.1 Lung nodule; TECHNIQUE: Following the intravenous administration of 12.5 mCi of F-18 FDG, whole body images are performed from the skull base to the midthigh. Images are reviewed on the computer in the coronal, a xial, and sagittal planes. Reconstructed rotating images are created on independent workstation and reviewed on the computer. A non-contrast CT is performed in conjunction with the PET scan. Glucose level 120 mg/dL CT DLP: 890.6 mGycm, Automated exposure control for dose reduction was used. COMPARISON: CT 10/20/2024, 04/26/2024, 04/20/2023, 10/08/2022, 09/16/2019, PET/CT 10/18/2022, MRI: None, u ltrasound 11/19/2022 FINDINGS: Mediastinal SUV mean is 2.3. Hepatic parenchyma SUV mean is 2.7. SKULL BASE AND NECK: No suspicious radiotracer activity. CHEST, MEDIASTINUM, AND HILAR REGION: Redemonstration of a right lower lobe 1.1 cm pulmonary nodule without suspicious FDG activity. Demons trate a maximum SUV of 1.3. ABDOMEN AND PELVIS: Focal region of FDG activity within the uterine fundus with a maximum SUV of 30.8. Low FDG activity along the abdominal hernia mesh likely related to postsurgical inflammation. MUSCULOSKELETAL STRUCTURES: No suspicious radiotracer activity. OTHER CT: Mild atherosclerotic calcification of the aorta and its branches. Mild cardiomegaly. Mild c oronary arterial calcifications. Trace pericardial effusion. Mitral annulus calcifications. Gallbladd er surgically absent. Multiple nonobstructing right renal calculi with regions of cortical thinning i nvolving the upper pole of the right kidney from prior injury. Postsurgical changes anterior abdomina l wall with mesh anchors an scarring. Postsurgical changes of the colon with anastomosis. Colonic div erticula of the descending colon. Subcentimeter calcified fibroid involving the uterus. Scattered reg ions of linear scarring demonstrated. Mild centrilobular emphysematous changes. Multilevel degenerati ve changes of the spine. IMPRESSION: 1. Redemonstration of a right lower lobe 1.1 cm pulmonary nodule without suspicious FDG activity. Lo w metabolic primary lung malignancy is not excluded. Follow-up CT chest in 3 months is recommended. 2. FDG avid uterine fundal lesion. Correlates with previously seen fibroid on ultrasound 11/19/2022. This can be seen with benign fibroids versus uterine sarcomas. Recommend further evaluation with pelv ic ultrasound. [facility], , 11/13/2024 6:12 PM
== END | disposition home or self-care (01) ==
LOC: RADPETMAIN 06:21
PROVIDERS: ATTEND Internal Medicine
DX: R91.1 Solitary pulmonary nodule (principal)
CPT/HCPCS: 78815; A9552